=== PATIENT | female | born 1955 | race Caucasian/White ===

== ENCOUNTER → 2016-08-26 | Outpatient (CLI) | payer MEDICARE, OTHER ==
--- NOTE | 2016-08-26 13:24 | CT ---
EXAMINATION TYPE: CT abdomen pelvis wo con DATE OF EXAM: 08/26/2016 12:49 PM COMPARISON: 05/10/2015 INDICATION: Bilateral flank pain for 3 months. Worse on the left DLP: 1567 mGycm, Automated exposure control for dose reduction was used. CONTRAST: 0 mL of Omnipaque 300. Study performed without Oral Contrast TECHNIQUE: Axial images were obtained from above the diaphragm to the pubic rami in the axial plane a t 5 mm thick sections. Reconstructed images are reviewed on the computer in the coronal plane. FINDINGS: Limited CT sections are obtained the lung bases. Punctate nodule along the right heart border above the diaphragm, series 3 image 16 lung windows may be present. This measures 0.4 cm in size and was pr esent previously. CT ABDOMEN: Liver: Normal Spleen: Normal Pancreas: Normal Adrenal glands: The adrenal glands are normal. Gallbladder: Not identified Kidneys: No masses are evident. No hydronephrosis is present. No cysts are present. Aorta: Vascular calcification is within the aorta. Inferior vena cava: Normal. CT PELVIS: Loops of bowel within the abdomen and pelvis are normal. Appendix: Normal as visualized. Urinary bladder: Decompressed with limited evaluation Genitourinary structures: Uterus is normal. Adnexal regions are clear. Osseous structures: No suspicious lytic or sclerotic lesions. Degenerative disc changes are within th e lower thoracic spine. IMPRESSIONS: 1. No suspicious acute changes.
== END | disposition home or self-care (01) ==
LOC: RADCTMAIN 12:31
PROVIDERS: ATTEND Urology
DX: R10.9 Unspecified abdominal pain (principal); Z88.5 Allergy status to narcotic agent; Z88.0 Allergy status to penicillin; Z88.8 Allergy status to other drugs, medicaments and biological substances
CPT/HCPCS: 74176

== ENCOUNTER → 2016-10-23 | Outpatient (CLI) | payer MEDICARE, OTHER ==
--- NOTE | 2016-10-23 13:50 | MR ---
EXAMINATION TYPE: MR cspine/lspine wo con DATE OF EXAM: 10/23/2016 COMPARISON: MRI cervical spine November 29, 2009. MRI lumbar spine January 18, 2011. MRI lumbar spine Ma y 2013. HISTORY: Cervicalgia and lumbago per order. Low back pain for 2 years into bilateral thighs per patie nt. Neck pain causing pain or weakness in arms and fingers per patient. TECHNIQUE: Multiplanar, multisequence imaging of the cervical and lumbar spine are performed without IV contrast. FINDINGS: C-SPINE: FINDINGS: Sagittal images of the cervical spine show the craniocervical junction to appear within nor mal limits. The cervical and upper thoracic spinal cord is normal in course and signal. Vertebral a lignment is straightened. There is persistent slight grade 1 retrolisthesis of C5 on C6. The vertebr al body heights are normal. There is persistent mild to moderate disc space narrowing and spurring at C5-C6 and C6-C7 levels. There are persistent posterior disc herniations at these levels on sagittal images effacing anterior thecal sac. Heterogeneous endplate changes anterior C6-C7 level are noted co nsistent with Modic type II degenerative change. Axial images show the C2-C3 level to remain within normal limits. Axial images at C3-C4 level show focal central disc protrusion mildly effacing anterior thecal sac, b ilateral neural foramina are patent. No significant change from prior study is seen. Axial images at C4-C5 level show more prominent focal central disc protrusion on axial image 29 exten ding nearly up to ventral surface of spinal cord, bilateral neural foramina remain patent. Axial images at C5-C6 level show broad-based right paracentral/foraminal disc protrusion effacing ant erolateral thecal sac and causing advanced right and moderate left-sided neural foraminal narrowing. Most prominent spinal canal stenosis is seen at this level on axial image 21. No significant change f rom prior study is seen. Axial images at C6-C7 level show broad-based right paracentral/foraminal disc protrusion effacing ant erolateral thecal sac and causing mild to moderate bilateral neural foraminal narrowing. Axial images at C7-T1 level are felt within normal limits. IMPRESSION: Straightening of cervical spine with multilevel degenerative changes, most prominent find ings remain present at C5-C6 and C6-C7 level as detailed above without significant progression from p rior MRI. Progressive but less prominent degenerative findings are noted at C4-C5 level versus 2010 M RI. L-SPINE: Sagittal images of the lumbar spine show vertebral body heights and alignment to appear satisfactory. Multilevel disc desiccation is seen but disc space heights are fairly well-maintained with exception mild disc space narrowing L5-S1 level. Increased signal posterior leak consistent with annular tear at this level is redemonstrated on sagittal images. No significant new posterior disc herniations are seen on sagittal images. The conus medullaris remains stable and slightly low in position ending at superior L2 level. No suspicious clumping of lumbosacral nerve roots is seen. No abnormal signal is noted. The bone marrow signal intensity is within normal limits. No significant spurring is seen. Sma ll hemangioma in L2 level is redemonstrated anteriorly and superiorly. Axial images show the T12-L1 and L1-L2 levels to appear within normal limits. Axial images at L2-L3 and L3-L4 level show mild/moderate facet degenerative changes bilaterally but s kane canal is preserved and bilateral neural foramina are patent. No significant change from prior s tudy seen. Axial images at L4-L5 level redemonstrate mild to moderate facet degenerative changes and ligament fl avum hypertrophy, right greater than left. There is redemonstration of some effacement the posterior lateral thecal sac. Mild broad disc bulge is redemonstrated. Bilateral neural foramina remain patent. Axial images at L5-S1 level show mild facet degenerative changes bilaterally. There is small right pa racentral disc protrusion redemonstrated minimally effacing anterior thecal sac, bilateral neural for jamar are patent. Gallbladder is not clearly identified on current study. There is 1.2 cm simple appearing cyst lower p ole level right kidney on axial image 12. IMPRESSION: Multilevel degenerative changes in mid to lower lumbar spine as detailed above, no signif icant change from most recent prior MRI.
== END | disposition home or self-care (01) ==
LOC: RADMRIMAIN 12:28
PROVIDERS: ATTEND Psychiatry & Neurology Neurology
DX: M47.816 Spondylosis without myelopathy or radiculopathy, lumbar region (principal); M47.814 Spondylosis without myelopathy or radiculopathy, thoracic region; Z88.0 Allergy status to penicillin; Z88.5 Allergy status to narcotic agent; Z88.8 Allergy status to other drugs, medicaments and biological substances
CPT/HCPCS: 72141; 72148

== ENCOUNTER → 2017-10-31 | Outpatient (CLI) | payer MEDICARE, OTHER ==
--- NOTE | 2017-11-04 11:07 | P.ARTDOP ---
Arterial Doppler LOWER EXTREMITY ARTERIAL DOPPLER: DATE OF SERVICE: 10/31/2017 Reason for study: Bilateral claudication calf and thigh. Doppler waveforms: Atypical bilaterally except at the left side digit which is monophasic.. Pulse volume recording: []. Pressure gradients: Above the thigh on both sides and across the knee mostly on the left with mild gradient below the knee on the right.. Ankle-brachial indices: 0.67 on the right and 0.62 on the left.. Toe pressures: 109 on the right, 54 on the left Impression: Moderate bilateral femoral popliteal occlusive disease. Possible iliac component. Clinical correlation recommended.
== END | disposition home or self-care (01) ==
LOC: RADUSWWP 10:06
PROVIDERS: ATTEND Internal Medicine
DX: M79.662 Pain in left lower leg (principal); M79.661 Pain in right lower leg
CPT/HCPCS: 93923

== ENCOUNTER 2018-02-13 08:41 | Inpatient (IN) | payer MEDICARE, OTHER ==
[2018-02-13] MEDS ORDERED: ACETAMINOPHEN TAB 500 MG TAB PO STA (08:58)
[2018-02-13] MEDS ORDERED: SODIUM CHLORIDE 0.9% 2,000 ML IV ONE (08:59)
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
[2018-02-13 09:23] LABS: Basophils % (A) 0 %; Eosinophils # (A) 0.1 k/uL (0-0.7); Eosinophils % (A) 2 %; HCT 44.8 % (34.0-46.0); HGB 14.5 gm/dL (11.4-16.0); Lymphocytes # (A) 0.4 k/uL (1.0-4.8); Lymphocytes % (A) 10 %; MCH 27.6 pg (25.0-35.0); MCHC 32.3 g/dL (31.0-37.0); MCV 85.6 fL (80.0-100.0); Monocytes % (A) 1 %; Neutrophils # (A) 3.8 k/uL (1.3-7.7); Neutrophils % (A) 86 %; Platelet Count 157 k/uL (150-450); RBC 5.24 m/uL (3.80-5.40); RDW 14.3 % (11.5-15.5); WBC 4.4 k/uL (3.8-10.6)
[2018-02-13 09:30] LABS: Partial Thromboplastin Time 22.1 sec (22.0-30.0); Prothrombin Time 10.1 sec (9.0-12.0)
[2018-02-13 09:31] LABS: Albumin 3.9 g/dL (3.5-5.0); Calcium 8.9 mg/dL (8.4-10.2); Magnesium 1.6 mg/dL (1.6-2.3); Potassium 4.9 mmol/L (3.5-5.1); Total Bilirubin 0.3 mg/dL (0.2-1.3); Total Protein 6.2 g/dL (6.3-8.2)
--- NOTE | 2018-02-13 09:43 | XR ---
EXAMINATION TYPE: XR chest 2V DATE OF EXAM: 02/13/2018 COMPARISON: NONE TECHNIQUE: PA and lateral views submitted. HISTORY: Fever and difficulty breathing FINDINGS: The lungs are clear and there is no pneumothorax, pleural effusion, or focal pneumonia. The heart i s enlarged. There is a catheter or lead overlying the spinal column. Degenerative change of the spine . There is an interstitial process seen. Technique limits assessment of the lung bases. IMPRESSION: 1. Cardia megaly with interstitial process correlate for interstitial pneumonitis or less likely veno us congestion. Atypical pneumonia in the differential. 2. Technique limits assessment of the lung bases. Correlate for basilar atelectasis or infiltrate.
[2018-02-13 10:30] LABS: Creatine Kinase 48 U/L (30-135)
[2018-02-13] MEDS ORDERED: LEVOFLOXACIN 750MG-D5W PMX 750 MG in DEXTROSE/WATER 1 150ML.BAG IVPB STA (10:30)
[2018-02-13 10:42] LABS: Creatine Kinase MB 0.8 ng/mL (0.0-2.4); Troponin I <0.012 ng/mL (0.000-0.034)
[2018-02-13] MEDS ORDERED: PNEUMONIA PROTOCOL UTILIZED 1 EACH MISC PO PRN (11:01)
[2018-02-13 11:47] LABS: Appearance,Urine Cloudy (Clear); Bacteria,Urine Many /hpf; Bilirubin,Urine Negative (Negative); Blood,Urine Moderate (Negative); Color,Urine Yellow; Glucose,Urine (UA) Negative (Negative); Ketones,Urine Negative (Negative); Leukocyte Esterase,Urine Moderate (Negative); Mucus,Urine Rare /hpf; Nitrite,Urine Positive (Negative); PH, Urine 5.5 (5.0-8.0); Protein,Urine Trace (Negative); RBC,Urine 44 /hpf (0-5); Specific Gravity,Urine 1.009 (1.001-1.035); Urobilinogen,Urine <2.0 mg/dL (<2.0); WBC,Urine 25 /hpf (0-5)
[2018-02-13] MEDS ORDERED: IPRATROPIUM-ALBUTEROL 3 ML NEB INHALATION PRN (12:47)
[2018-02-13] MEDS ORDERED: NITROGLYCERIN SL TABS 0.4 MG TAB SUBLINGUAL PRN (12:47)
[2018-02-13] MEDS ORDERED: METHOCARBAMOL 750 MG TAB PO PRN (12:47)
[2018-02-13] MEDS ORDERED: TEMAZEPAM 15 MG CAP PO PRN (12:50)
[2018-02-13] MEDS ORDERED: AZITHROMYCIN 500 MG in SODIUM CHLORIDE 0.9% 250 ML IVPB SCH (13:00)
[2018-02-13] MEDS ORDERED: INFLUENZA VACCINE (6 MOS+) 60 MCG/0.5 ML SYRINGE IM ONE (13:03)
[2018-02-13] MEDS: FUROSEMIDE 10 MG/ML 4 ML VIAL IV SCH (13:40)
[2018-02-13] MEDS: methylPREDNISolone SOD SUCCI 125 MG/2 ML VIAL IV SCH ×3 (13:40→23:10)
[2018-02-13] MEDS: NICOTINE 14MG/24HR PATCH TRANSDERM SCH (13:41)
[2018-02-13] MEDS: HEPARIN SODIUM,PORCINE 5,000 UNIT/ML 1 ML VIAL SQ SCH ×2 (13:41→21:30)
[2018-02-13] MEDS: TRIAMCINOLONE 0.1% CREAM 80 GM TUBE TOPICAL SCH (13:42)
[2018-02-13] MEDS ORDERED: SODIUM CHLORIDE 0.9% 500 ML IV ONE (14:27)
[2018-02-13] MEDS: ACETAMINOPHEN TAB 500 MG TAB PO PRN (14:43)
[2018-02-13] MEDS: LABETALOL 200 MG TAB PO SCH (15:19)
[2018-02-13] MEDS: GABAPENTIN 300 MG CAP PO SCH ×2 (15:19→21:30)
[2018-02-13 16:29] LABS: Glucose,Whole Blood 236 mg/dL (75-99)
[2018-02-13] MEDS: IPRATROPIUM-ALBUTEROL 3 ML NEB INHALATION SCH ×2 (17:10→21:03)
[2018-02-13] MEDS: SODIUM CHLORIDE 0.9% 1,000 ML IV SCH (17:26)
[2018-02-13] MEDS: INSULIN DETEMIR 100 UNIT/ML 10 ML VIAL SQ SCH (17:49)
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
--- NOTE | 2018-02-13 19:09 | CT ---
EXAMINATION TYPE: CT abdomen pelvis wo con DATE OF EXAM: 02/13/2018 COMPARISON: 08/26/2016 HISTORY: Flank pain CT DLP: 1506.5 mGycm Automated exposure control for dose reduction was used. TECHNIQUE: Helical acquisition of images was performed from the lung bases through the pelvis. FINDINGS: There is coarse interstitial infiltrate in the lower lung valdez. Heart is enlarged. There is no [place] cardial effusion. Liver shows no focal defect. Spleen appears normal. There is no pancreatic mass. There is no adrenal mass. Kidneys have normal size. There is mild right-sided hydronephrosis. I see n o definite ureteral calculus. There is right side perinephric edema. There are small calculi in the l ower pole right kidney to measure up to 4 mm. There is right-sided periureteral edema. I see no intestinal wall thickening. There are no dilated loops. Appendix appears normal. Bladder dis tends smoothly. I see no bony destructive process. There is no lumbar compression fracture. There is no inguinal hernia or adenopathy. There is no mesenteric edema or adenopathy. There is no ev idence of pneumoperitoneum. IMPRESSION: THERE ARE NEW INFILTRATES AT THE LUNG BASES COMPARED TO OLD EXAM. CARDIOMEGALY. THERE IS NEW RIGHT-SIDED HYDRONEPHROSIS WITH PERINEPHRIC EDEMA AND PERIURETERAL EDEMA. A DEFINITE URE TERAL STONE IS NOT IDENTIFIED. THIS COULD RELATE TO RECENTLY PASSED STONE OR OTHER OBSTRUCTING LESION . NORMAL APPENDIX.
[2018-02-13 20:35] LABS: Glucose,Whole Blood 374 mg/dL (75-99)
[2018-02-13] MEDS ORDERED: amLODIPine 10 MG TAB PO SCH (21:00)
[2018-02-13] MEDS: FORMOTEROL FUMARATE 20 MCG/2 ML NEBU INHALATION SCH (21:03)
[2018-02-13] MEDS: BUDESONIDE 1 MG/2 ML NEBU INHALATION SCH (21:03)
[2018-02-13] MEDS ORDERED: SODIUM CHLORIDE 0.9% 1,000 ML IV ONE (21:14)
[2018-02-13] MEDS ORDERED: INSULIN ASPART 100 UNIT/ML 1 ML 10 ML VIAL SQ ONE (21:22)
--- NOTE | 2018-02-13 21:59 | HP ---
HISTORY AND PHYSICAL DATE OF SERVICE: 02/13/2018 CHIEF COMPLAINT: Shortness of breath and fever. HISTORY OF PRESENT ILLNESS: This 62-year-old woman with a past medical history of multiple medical problems, including CVA, TIA, diabetes mellitus, GERD, hypertension, hyperlipidemia, history of myocardial infarction, history of DJD, history of morbid obesity, history of CAD and stent, being followed by Dr. Jarrett in the outpatient setting, was not feeling well over the past several days. Patient had fever. Patient had shortness of breath. The patient was also complaining of right loin pain which was radiating to the front, and the patient came to [facility] and was admitted for further evaluation and treatment. There is no history of any headache, loss of consciousness, seizures at this time. Plasma lactic acid is elevated and the possibility of sepsis is suspected. Blood sugar is also elevated. PAST MEDICAL HISTORY: 1. History of CVA, TIA. 2. Diabetes mellitus. 3. History of GERD. 4. Hypertension. 5. Hyperlipidemia. 6. History of myocardial infarction. 7. Morbid obesity. 8. CAD with stent. HOME MEDICATIONS: 1. Toujeo 20 units subcutaneously before supper. 2. Kenalog 1 application b.i.d. 3. Zoloft 100 mg p.o. daily. 4. K-Dur 10 mEq p.o. daily. 5. Lasix 20 mg p.o. daily. 6. Cetirizine 10 mg p.o. daily. 7. Amaryl 1 mg p.o. before breakfast. 8. Plavix 75 mg p.o. daily. 9. Norvasc 10 mg at bedtime. 10.Nitrostat 0.4 sublingually p.r.n. 11.Robaxin 750 p.o. b.i.d. p.r.n. 12.Trandate 400 mg p.o. daily. 13.Imdur ER 30 mg p.o. each morning. 14.[place] 1 tablet t.i.d. p.r.n. 15.Neurontin 600 mg p.o. t.i.d. ALLERGIES: 1. PENICILLIN. 2. PENTOBARBITAL. 3. CHLORPROMAZINE. 4. CODEINE. 5. DIAZEPAM. 6. PROCHLORPERAZINE. FAMILY HISTORY: History of bladder cancer. SOCIAL HISTORY: History of smoking on a daily basis. No history of alcohol intake. REVIEW OF SYSTEMS: ENT: No diminished hearing. No diminished vision. CARDIOVASCULAR SYSTEM: As mentioned earlier. RESPIRATORY SYSTEM: As mentioned earlier. GI: No nausea, vomiting. : No dysuria or retention. NERVOUS SYSTEM: No numbness, weakness. ALLERGY/IMMUNOLOGY: No asthma, hayfever. MUSCULOSKELETAL: As mentioned earlier. HEMATOLOGY/ONCOLOGY: No history of anemia. ENDOCRINE: No history of diabetes, hypothyroidism. CONSTITUTIONAL: As mentioned earlier. DERMATOLOGY: Negative. RHEUMATOLOGY: Negative. PSYCHIATRY: As mentioned earlier. PHYSICAL EXAMINATION: Patient is alert and oriented x3. Pulse is 80, blood pressure 97/70, respiration 20, temperature 101.2, pulse ox 93% on 2 L. HEENT: Conjunctivae normal. Oral mucosa moist. NECK: No jugular venous distention. No carotid bruit. No lymph node enlargement. CARDIOVASCULAR SYSTEM: S1, S2 muffled. No S3. No S4. RESPIRATORY SYSTEM: Breath sounds diminished at the bases. Bilateral scattered rhonchi and expiratory wheezing and crackles. ABDOMEN: Soft, obese, non-tender. No mass palpable. LEGS: No edema. No swelling. NERVOUS SYSTEM: Higher functions as mentioned earlier. Moves all 4 limbs. No focal motor or sensory deficit. LYMPHATICS: No lymph node palpable in neck, axillae or groin. SKIN: No ulcer, rash, bleeding. LABS: WBC 4.4, hemoglobin 14.5, sodium 143, potassium 4.9, CO2 17, creatinine 1.21, glucose 374. UA noted. ASSESSMENT: 1. Chronic obstructive pulmonary disease, acute exacerbation, with possible acute purulent tracheobronchitis, possible bilateral pneumonia with sepsis. 2. Possible urinary tract infection with sepsis. 3. Lactic acidosis. 4. Mild hypotension on arrival. 5. History of cerebrovascular accident, transient ischemic attack. 6. Diabetes mellitus, type 2. 7. Gastroesophageal reflux disease. 8. Hypertension. 9. Hyperlipidemia. 10.History of myocardial infarction. 11.History of pneumonia. 12.History of morbid obesity. 13.History of coronary artery disease, stent. 14.History of transient ischemic attack. 15.History of central nervous system aneurysm and coiling. 16.History of chronic degenerative joint disease. 17.Anxiety, depression. 18.Remote history of nicotine dependence. 19.Morbid obesity with body mass index of 47.2. RECOMMENDATIONS AND DISCUSSION: In this 62-year-old woman who presented with multiple complex medical issues, we will monitor the patient closely, continue the current medications, continue with symptomatic treatment. Initiate broad-spectrum IV antibiotics, bronchodilators, IV steroids. Closely follow with Dr. Guajardo. Cardiology also will be consulted because of the hypotension and patient's cardiac history. Prognosis guarded because of multiple complex medical issues. Troponins are negative at this time. We will obtain cultures. Influenza is negative. Guarded prognosis. Further recommendations to follow. A copy of this dictation is being forwarded to Dr. Jarrett, who is the primary physician. MMODL / IJN: [id number] /
[2018-02-13] MEDS ORDERED: VANCOMYCIN IV PER PHARMACY 1 EACH MISC MISCELLANE SCH (23:00)
[2018-02-13 23:07] LABS: Glucose,Whole Blood 313 mg/dL (75-99)
[2018-02-14] MEDS: MEROPENEM 2 GM in SODIUM CHLORIDE 0.9% 100 ML IVPB SCH ×2 (00:09→11:57)
[2018-02-14] MEDS ORDERED: VANCOMYCIN 1,750 MG in SODIUM CHLORIDE 0.9% 500 ML IVPB SCH (01:00)
[2018-02-14] MEDS: SODIUM CHLORIDE 0.9% 1,000 ML IV SCH ×3 (01:15→11:51)
[2018-02-14] MEDS: methylPREDNISolone SOD SUCCI 125 MG/2 ML VIAL IV SCH ×2 (06:07→11:57)
--- NOTE | 2018-02-14 06:21 | XR ---
EXAMINATION TYPE: XR chest 2V DATE OF EXAM: 02/14/2018 HISTORY: pneumonia. REFERENCE: Previous study dated 02/13/2018. FINDINGS: A pain stimulator overlies the dorsal spine. The heart is enlarged. There is mild interstitial change. There is mild vascular congestion. There is a small left effusion. IMPRESSION: SUBTLE CHANGES OF CONGESTIVE HEART FAILURE.
[2018-02-14 06:27] LABS: Glucose,Whole Blood 168 mg/dL (75-99)
[2018-02-14] MEDS: INSULIN ASPART 100 UNIT/ML 1 ML 10 ML VIAL SQ SCH ×4 (06:28→21:03)
[2018-02-14] MEDS: GLIMEPIRIDE 1 MG TAB PO SCH (06:29)
[2018-02-14 06:48] LABS: Albumin 3.1 g/dL (3.5-5.0); Calcium 8.6 mg/dL (8.4-10.2); HCT 37.6 % (34.0-46.0); HGB 12.3 gm/dL (11.4-16.0); MCHC 32.8 g/dL (31.0-37.0); MCV 85.3 fL (80.0-100.0); Mean Platelet Volume 8.4; Platelet Count 121 k/uL (150-450); Potassium 4.9 mmol/L (3.5-5.1); RDW 14.5 % (11.5-15.5); Total Bilirubin 0.2 mg/dL (0.2-1.3); Total Protein 5.6 g/dL (6.3-8.2); WBC 25.5 k/uL (3.8-10.6)
[2018-02-14 07:57] LABS: Band Neutrophils % 13 %; Lymphocytes # (M) 2.04 k/uL (1.0-4.8); Monocytes # (M) 1.28 k/uL (0-1.0); Neutrophils % (M) 74 %; Nucleated Red Blood Cells 0 /100 WBC (0-0); Polychromasia Present; Total Cells Counted 100
[2018-02-14] MEDS: BUDESONIDE 1 MG/2 ML NEBU INHALATION SCH ×2 (08:32→20:32)
[2018-02-14] MEDS: FORMOTEROL FUMARATE 20 MCG/2 ML NEBU INHALATION SCH ×2 (08:32→20:32)
[2018-02-14] MEDS: IPRATROPIUM-ALBUTEROL 3 ML NEB INHALATION SCH ×4 (08:32→20:34)
[2018-02-14] MEDS ORDERED: ISOSORBIDE MONONITRATE ER 30 MG TAB.ER.24H PO SCH (09:00)
[2018-02-14] MEDS: LABETALOL 200 MG TAB PO SCH (09:17)
[2018-02-14] MEDS: HEPARIN SODIUM,PORCINE 5,000 UNIT/ML 1 ML VIAL SQ SCH ×2 (09:24→21:04)
[2018-02-14] MEDS: CLOPIDOGREL 75 MG TAB PO SCH (09:24)
[2018-02-14] MEDS: GABAPENTIN 300 MG CAP PO SCH ×3 (09:24→21:04)
[2018-02-14] MEDS: NICOTINE 14MG/24HR PATCH TRANSDERM SCH (09:25)
[2018-02-14] MEDS: SERTRALINE 100 MG TAB PO SCH (09:29)
[2018-02-14] MEDS: LORATADINE 10 MG TAB PO SCH (09:29)
[2018-02-14] MEDS: TRIAMCINOLONE 0.1% CREAM 80 GM TUBE TOPICAL SCH ×2 (09:31→21:05)
[2018-02-14] MEDS ORDERED: LEVOFLOXACIN 750MG-D5W PMX 750 MG in DEXTROSE/WATER 1 150ML.BAG IVPB SCH (11:00)
[2018-02-14] MEDS: POTASSIUM CHLORIDE ER 10 MEQ TAB.ER.PRT PO SCH (11:54)
[2018-02-14] MEDS: FUROSEMIDE 10 MG/ML 4 ML VIAL IV SCH (12:11)
[2018-02-14 12:18] LABS: Glucose,Whole Blood 201 mg/dL (75-99)
--- NOTE | 2018-02-14 14:13 | P.PN ---
Subjective Progress Note Date: 02/14/18 Principal diagnosis: Shortness of breath I'm dictating for Dr. Rodriguez. Interval history: Starr James is a 62-year-old female patient who presented to the hospital because of fever, generalized weakness, chills, pain in the right flank area and not feeling well. She was admitted to inpatient unit for further evaluation. No dysuria frequency or urgency. No change in the color or the characteristics of the urine. She has had previous episodes of UTI. She has had previous bouts of pneumonia. In hospital she start also getting some shortness of breath. Her urinalysis was suggestive of UTI. Influenza screen was negative. Lactic acid level was at 2.6. ProBNP level was 1760. The white cell count is not elevated at 4.4. The patient's renal function showed a creatinine of 1.2 with a BUN of 29. Sodium level is at 143 and the patient's serum bicarb is at 17. Chest x-ray shows cardiomegaly along with some mild interstitial process. No acute infiltration or airspace disease noted. The patient has received 2-1/2 L of IV fluids. She was given Rocephin and Zithromax. No nausea. No emesis. No abdominal pain. No altered mentation. No headaches. No skin rashes. Review of systems: Constitutional: Reports fatigue, Reports fever, Reports weakness, Reports weight gain Eyes: denies blurred vision, denies bulging eye, denies decreased vision Ears, nose, mouth and throat: Denies headache, Denies sore throat Cardiovascular: Reports dyspnea on exertion Respiratory: Reports dyspnea Gastrointestinal: Denies abdominal pain, Denies diarrhea, Denies nausea, Denies vomiting Genitourinary: Reports dysuria Musculoskeletal: absent: ankle pain, ankle stiffness, ankle swelling Neurological: Reports weakness Endocrine: Reports fatigue The rest of the 14 point review of systems is negative Objective - Vital Signs Vital signs: Vital Signs Temp 98.1 F 02/14/18 11:50 Pulse 72 02/14/18 12:13 Resp 20 02/14/18 11:50 BP 105/60 02/14/18 11:50 Pulse Ox 95 02/14/18 11:50 Intake & Output 02/13/18 02/14/18 02/14/18 18:59 06:59 18:59 Intake Total 1590 750 Output Total 600 Balance 1590 150 Weight 113.398 kg 118.7 kg Intake: IV 750 Meropenem 2 gm In Sodium 100 Chloride 0.9% 100 ml @ 200 mls/hr IVPB Q12H [facility] Rx#:[id number] Sodium Chloride 0.9% 1, 650 000 ml @ 75 mls/hr IV . [id number] [facility] Rx#:[id number] Intake, IV Titration 1350 Amount Meropenem 2 gm In Sodium 100 Chloride 0.9% 100 ml @ 200 mls/hr IVPB Q12H [facility] Rx#:[id number] Sodium Chloride 0.9% 1, 750 000 ml @ 75 mls/hr IV . [id number] [facility] Rx#:[id number] Vancomycin 1,750 mg In 500 Sodium Chloride 0.9% 500 ml @ 167 mls/hr IVPB Q24H [facility] Rx#:[id number] Oral 240 Output: Urine 600 Other: Voiding Method Bedside Commode Bedside Commode # Voids 1 3 # Bowel Movements 0 - Exam General : Obese, comfortable likely distress Head exam was generally normal. T Neck was supple and without jugular venous distension, no JVD Lung sounds are diminished otherwise clear. Or crackles in the in lung bases. Cardiac S1-S2 present regular rate and rhythm Abdominal exam revealed normal bowel sounds. The abdomen was soft, non-tender, bowel sounds are normal Extremities revealed easily palpable radial, femoral and pedal pulses. There was no cyanosis, clubbing or edema. Examination of the skin revealed no evidence of significant rashes, suspicious appearing nevi or other concerning lesions. Neurologically the patient is awake and alert and is no focal neurological deficit Psychiatric-anxious Active Medications Acetaminophen (Tylenol Tab) 500 mg PO Q6HR PRN PRN Reason: Fever and/ or Pain Last Admin: 02/13/18 14:43 Dose: 500 mg Albuterol/Ipratropium (Duoneb 0.5 Mg-3 Mg/3 Ml Soln) 3 ml INHALATION RT-QID [facility] Last Admin: 02/14/18 12:02 Dose: 3 ml Albuterol/Ipratropium (Duoneb 0.5 Mg-3 Mg/3 Ml Soln) 3 ml INHALATION RT-QID PRN PRN Reason: Shortness Of Breath Or Wheezing Alprazolam (Xanax) 0.25 mg PO TID PRN PRN Reason: Anxiety Budesonide (Pulmicort) 1 mg INHALATION RT-BID [facility] Last Admin: 02/14/18 08:32 Dose: 1 mg Clopidogrel Bisulfate (Plavix) 75 mg PO DAILY [facility] Last Admin: 02/14/18 09:24 Dose: 75 mg Formoterol Fumarate (Perforomist) 20 mcg INHALATION RT-BID [facility] Last Admin: 02/14/18 08:32 Dose: 20 mcg Furosemide (Lasix) 40 mg IV DAILY [facility] Last Admin: 02/14/18 12:11 Dose: 40 mg Gabapentin (Neurontin) 600 mg PO TID [facility] Last Admin: 02/14/18 09:24 Dose: 600 mg Glimepiride (Amaryl) 1 mg PO AC-BRKFST [facility] Last Admin: 02/14/18 06:29 Dose: 1 mg Heparin Sodium (Porcine) (Heparin) 5,000 unit SQ Q12HR [facility] Last Admin: 02/14/18 09:24 Dose: 5,000 unit Sodium Chloride (Saline 0.9%) 1,000 mls @ 75 mls/hr IV .[id number] [facility] Last Admin: 02/14/18 11:51 Dose: 75 mls/hr Meropenem 2 gm/ Sodium (Chloride) 100 mls @ 200 mls/hr IVPB Q12H [facility] Last Admin: 02/14/18 11:57 Dose: 200 mls/hr Insulin Aspart (Novolog) 0 unit SQ ACHS [facility]; Protocol Last Admin: 02/14/18 12:28 Dose: 6 unit Insulin Detemir (Levemir) 20 unit SQ PC-SUPPER [facility] Last Admin: 02/13/18 17:49 Dose: 20 unit Loratadine (Claritin) 10 mg PO DAILY [facility] Last Admin: 02/14/18 09:29 Dose: 10 mg Methocarbamol (Robaxin) 750 mg PO BID PRN PRN Reason: Pain Methylprednisolone Sodium Succinate (Solu-Medrol) 60 mg IV Q6HR [facility] Last Admin: 02/14/18 11:57 Dose: 60 mg Miscellaneous Information (Pneumonia Protocol Utilized) 1 each PO ONCE PRN PRN Reason: Per Protocol Nicotine (Habitrol 14mg/24hr Patch) 1 patch TRANSDERM DAILY [facility] Last Admin: 02/14/18 09:25 Dose: 1 patch Nitroglycerin (Nitrostat) 0.4 mg SUBLINGUAL Q5M PRN PRN Reason: Chest Pain Non-Formulary Medication (Dosing Per Pharmacy) 1 each MISCELLANE DIRECTED [facility] Last Admin: 02/14/18 00:16 Dose: Not Given Potassium Chloride (K-Dur 10) 10 meq PO DAILY [facility] Last Admin: 02/14/18 11:54 Dose: 10 meq Sertraline HCl (Zoloft) 100 mg PO DAILY [facility] Last Admin: 02/14/18 09:29 Dose: 100 mg Temazepam (Restoril) 15 mg PO HS PRN PRN Reason: Insomnia Triamcinolone Acetonide (Kenalog) 1 applic TOPICAL BID [facility] Last Admin: 02/14/18 09:31 Dose: Not Given - Labs CBC & Chem 7: 02/14/18 05:50 02/14/18 05:50 Labs: Abnormal Lab Results - Last 24 Hours (Table) 02/13/18 02/13/18 02/13/18 Range/Units 16:26 20:13 20:32 WBC (3.8-10.6) k/uL Plt Count (150-450) k/uL Neutrophils # (Manual) (1.3-7.7) k/uL Monocytes # (Manual) (0-1.0) k/uL Chloride (98-107) mmol/L Carbon Dioxide (22-30) mmol/L BUN (7-17) mg/dL Creatinine (0.52-1.04) mg/dL Glucose (74-99) mg/dL POC Glucose (mg/dL) 236 H 374 H (75-99) mg/dL Plasma Lactic Acid Jose 3.2 H* (0.7-2.0) mmol/L AST (14-36) U/L ALT (9-52) U/L Total Protein (6.3-8.2) g/dL Albumin (3.5-5.0) g/dL 02/13/18 02/14/18 02/14/18 Range/Units 22:56 05:50 05:50 WBC 25.5 H (3.8-10.6) k/uL Plt Count 121 L (150-450) k/uL Neutrophils # (Manual) 22.10 H (1.3-7.7) k/uL Monocytes # (Manual) 1.28 H (0-1.0) k/uL Chloride 116 H (98-107) mmol/L Carbon Dioxide 20 L (22-30) mmol/L BUN 29 H (7-17) mg/dL Creatinine 1.35 H (0.52-1.04) mg/dL Glucose 159 H (74-99) mg/dL POC Glucose (mg/dL) 313 H (75-99) mg/dL Plasma Lactic Acid Jose (0.7-2.0) mmol/L AST 46 H (14-36) U/L ALT 83 H (9-52) U/L Total Protein 5.6 L (6.3-8.2) g/dL Albumin 3.1 L (3.5-5.0) g/dL 02/14/18 02/14/18 Range/Units 06:25 12:14 WBC (3.8-10.6) k/uL Plt Count (150-450) k/uL Neutrophils # (Manual) (1.3-7.7) k/uL Monocytes # (Manual) (0-1.0) k/uL Chloride (98-107) mmol/L Carbon Dioxide (22-30) mmol/L BUN (7-17) mg/dL Creatinine (0.52-1.04) mg/dL Glucose (74-99) mg/dL POC Glucose (mg/dL) 168 H 201 H (75-99) mg/dL Plasma Lactic Acid Jose (0.7-2.0) mmol/L AST (14-36) U/L ALT (9-52) U/L Total Protein (6.3-8.2) g/dL Albumin (3.5-5.0) g/dL Microbiology - Last 24 Hours (Table) 02/13/18 11:08 Urine Culture - Preliminary Urine,Catheterized Gram Neg Bacilli 02/13/18 08:54 Blood Culture Gram Stain - Preliminary Blood Blood Culture - Preliminary Gram Neg Bacilli 02/13/18 08:54 Blood Culture - Final Blood Assessment and Plan Assessment: 1 acute febrile illness expected to be related to an underlying UTI. 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 Rocephin and Zithromax. IV fluids with normal saline , decrease the weight 75 mL an hour. Continue bronchodilators. Continue steroids. CAT scan of the abdomen looking for hydronephrosis or any other intra-abdominal source of nephrolithiasis or sepsis. DVT and GI prophylaxis. Patient had hypotension and was given fluid boluses. Chest x-ray was showing congestive heart failure. Fluid rate will be decreased. Patient is also getting evaluated by cardiology service. Norvasc as well as labetalol was discontinued. Continue rest of the medications. Continue GI and DVT prophylaxis. Prognosis guarded due to multiple medical problems. Monitor patient closely, further plans based on her clinical course.
--- NOTE | 2018-02-14 14:45 | ECHOF ---
Referral Reason:hypotension MEASUREMENTS -------- HEIGHT: 152.4 cm WEIGHT: 118.4 kg BP: IVSd: 1.6 cm (0.6 - 1.1) LVIDd: 4.0 cm (3.9 - 5.3) LVPWd: 1.9 cm (0.6 - 1.1) IVSs: 1.8 cm LVIDs: 3.0 cm LVPWs: 2.0 cm LA Diam: 3.6 cm (2.7 - 3.8) Ao Diam: 3.0 cm (2.0 - 3.7) AV Cusp: 1.8 cm (1.5 - 2.6) LA Diam: 3.8 cm (2.7 - 3.8) MV EXCURSION: 15.119 mm (> 18.000) MV EF SLOPE: 105 mm/s (70 - 150) EPSS: 0.2 cm MV E Maik: 0.67 m/s MV DecT: 311 ms MV A Maik: 0.90 m/s MV E/A Ratio: 0.74 FINDINGS -------- Sinus rhythm. This was a technically adequate study. Morbid Obesity The left ventricular size is normal. There is moderate concentric left ventricular hypertrophy. O verall left ventricular systolic function is low-normal with, an EF between 50 - 55 %. The right ventricle is normal in size. The left atrial size is normal. The right atrial size is normal. There is mild aortic valve sclerosis. There is no evidence of aortic regurgitation. Mild mitral annular calcification present. Mild mitral regurgitation is present. Mild tricuspid regurgitation present. There is no evidence of pulmonary hypertension. The right v entricular systolic pressure, as measured by Doppler, is {RVSP}. There is no pulmonic regurgitation present. The aortic root size is normal. There is no pericardial effusion. CONCLUSIONS -------- 1. The left ventricular size is normal. 2. There is moderate concentric left ventricular hypertrophy. 3. Overall left ventricular systolic function is low-normal with, an EF between 50 - 55 %. 4. There is mild aortic valve sclerosis. 5. Mild mitral annular calcification present. 6. Mild mitral regurgitation is present. 7. Mild tricuspid regurgitation present. 8. There is no evidence of pulmonary hypertension. 9. The right ventricular systolic pressure, as measured by Doppler, is {RVSP}. 10. There is no pulmonic regurgitation present. 11. The aortic root size is normal. 12. There is no pericardial effusion. CUSTOMER CONTACT SALES ASSOCIATE: Kaur Sprague RDCS
--- NOTE | 2018-02-14 14:54 | CONS ---
CONSULTATION CHIEF COMPLAINT: Fever, chills. This is a 62-year-old lady with complex and multiple medical problems, including diabetes, hypertension, dyslipidemia, coronary artery disease, status post stent, history of cerebral aneurysm, status post coil, TIA. She presents to hospital complaining of fever, shortness of breath and not feeling well. Cardiology has been consulted because of hypotension. Her blood pressures have been in the 90s and 100s systolic, but she does not have any symptoms of hypotension. Her peripheral pulses are palpable. It is somewhat difficult to check her blood pressure because of morbid obesity. However, the hypotension may be related to sepsis. We will obtain cardiac enzymes to rule out myocardial infarction. EKG does not reveal acute ischemic changes. I will obtain a 2D echo to evaluate her LV function. PAST MEDICAL HISTORY: Significant for: 1. Hypertension. 2. Diabetes. 3. Dyslipidemia. 4. GERD. 5. CVA. 6. Morbid obesity. ALLERGIES: 1. PENICILLIN. 2. CODEINE. 3. DIAZEPAM. MEDICATIONS: Medications at home include: 1. Zoloft. 2. K-Dur. 3. Lasix. 4. Amaryl. 5. Plavix. 6. Norvasc. 7. Robaxin. 8. Trandate. 9. Imdur. 10.Smoot. 11.Neurontin. FAMILY HISTORY: Significant for bladder cancer. SOCIAL HISTORY: Significant for smoking on a daily basis. REVIEW OF SYSTEMS: HEENT is unremarkable. CARDIOVASCULAR: As described above. RESPIRATORY: Negative. GI: Negative. GENITOURINARY: Negative. HYDRODYNAMICS TEACHER: Negative. ALLERGY/IMMUNOLOGY: Negative. SKIN: Negative. MUSCULOSKELETAL: Significant for arthritis. PSYCHOSOCIAL: Negative. ENDOCRINE: Negative. DERMATOLOGICAL: Negative. CONSTITUTIONAL: Significant for fever, chills. PSYCHIATRY: Negative. PHYSICAL EXAMINATION: Patient appears comfortable at rest. Afebrile. Heart rate is 76. Baseline blood pressure is 92/54, respiratory rate 18, oxygen saturation 95% on 3 L. There is no jugular venous distention. Chest exam reveals good air entry bilaterally. Heart exam reveals first and second heart sounds. No gallop. No murmur. No rub. Abdomen is soft, nontender. Examination of extremities did not reveal any edema. Peripheral pulses are felt. LABS: Her hemoglobin is 12.3. White cell count is elevated at 25. Potassium is 4.9, creatinine 1.3. BUN is 29. AST and ALT are elevated. ASSESSMENT: 1. Fever with elevated white cell count, probably related to sepsis. 2. Hypotension; could be due to the sepsis. 3. History of coronary artery disease, status post angioplasty. PLAN: I will obtain a 2D echo to evaluate her LV function, obtain a BNP and troponin. MMODL / IJN: [id number] /
--- NOTE | 2018-02-14 15:52 | P.PN ---
Subjective Progress Note Date: 02/14/18 [id number] female patient who presented to the hospital because of fever, generalized weakness, chills, pain in the right flank area and not feeling well. No dysuria frequency or urgency. No change in the color or the characteristics of the urine. She has had previous episodes of UTI. She has had previous bouts of pneumonia. In hospital she start also getting some shortness of breath. Her urinalysis was suggestive of UTI. Influenza screen was negative. Lactic acid level was at 2.6. ProBNP level was 1760. The white cell count is not elevated at 4.4. The patient's renal function showed a creatinine of 1.2 with a BUN of 29. Sodium level is at 143 and the patient's serum bicarb is at 17. Chest x-ray shows cardiomegaly along with some mild interstitial process. No acute infiltration or airspace disease noted. The patient has received 2-1/2 L of IV fluids. She was given Rocephin and Zithromax. No nausea. No emesis. No abdominal pain. No altered mentation. No headaches. No skin rashes. On 02/15/2008 and I'm seeing this patient for a follow-up. The patient was seen yesterday in a septic state. This was related to an underlying urine checked infection. The patient's urine culture came back positive for gram- negative bacillus and gram-negative bacillus was also cultured in the blood. The patient was switched IV Merrem. Overall doing better. No fevers since the evening. Hemodynamically stable. No nausea or vomiting. No abdominal pain. CAT scan of the abdomen was also completed and the patient was found to have coarse interstitial infiltrates of the lung bases bilaterally. No pericardial effusion. No adrenal mass. Kidneys were normal in size. There was mild right kidney hydronephrosis without any ureteral calculus. There is right-sided perinephric edema and there is a small cavernous in the lower pole of the right kidney measuring 4 mm in size. There is right-sided periurethral edema. The findings are almost insistent with a stone that could've passed and there is no obstructive lesion at this point and there may be an underlying component of pyelonephritis. Objective - Vital Signs Vital signs: Vital Signs Temp 98.3 F 02/14/18 15:45 Pulse 71 02/14/18 15:45 Resp 20 02/14/18 15:45 BP 105/60 02/14/18 15:45 Pulse Ox 95 02/14/18 15:45 Intake & Output 02/13/18 02/14/18 02/14/18 18:59 06:59 18:59 Intake Total 1590 750 Output Total 600 Balance 1590 150 Weight 113.398 kg 118.7 kg Intake: IV 750 Meropenem 2 gm In Sodium 100 Chloride 0.9% 100 ml @ 200 mls/hr IVPB Q12H [facility] Rx#:[id number] Sodium Chloride 0.9% 1, 650 000 ml @ 75 mls/hr IV . [id number] [facility] Rx#:[id number] Intake, IV Titration 1350 Amount Meropenem 2 gm In Sodium 100 Chloride 0.9% 100 ml @ 200 mls/hr IVPB Q12H [facility] Rx#:[id number] Sodium Chloride 0.9% 1, 750 000 ml @ 75 mls/hr IV . [id number] [facility] Rx#:[id number] Vancomycin 1,750 mg In 500 Sodium Chloride 0.9% 500 ml @ 167 mls/hr IVPB Q24H [facility] Rx#:[id number] Oral 240 Output: Urine 600 Other: Voiding Method Bedside Commode Bedside Commode # Voids 1 3 # Bowel Movements 0 - Exam Obese, comfortable and the patient nonacute respiratory distress and she is calm and comfortable answering questions and she is very appropriate Head exam was generally normal. There was no scleral icterus or corneal arcus. Mucous membranes were moist. Neck was supple and without jugular venous distension, thyromegaly, or carotid bruits. Carotids were easily palpable bilaterally. There was no adenopathy. Mallampati class IV and there is no goiter or neck masses Lung sounds are diminished otherwise clear. Or crackles in the in lung bases. Cardiac exam revealed the PMI to be normally situated and sized. The rhythm was regular and no extrasystoles were noted during several minutes of auscultation. The first and second heart sounds were normal and physiologic splitting of the second heart sound was noted. There were no murmurs, rubs, clicks, or gallops. Abdominal exam revealed normal bowel sounds. The abdomen was soft, non-tender, and without masses, organomegaly, or appreciable enlargement of the abdominal aorta. Examination of the extremities revealed easily palpable radial, femoral and pedal pulses. There was no cyanosis, clubbing or edema. Examination of the skin revealed no evidence of significant rashes, suspicious appearing nevi or other concerning lesions. Neurologically the patient is awake and alert and is no focal neurological deficit - Labs CBC & Chem 7: 02/14/18 05:50 02/14/18 05:50 Labs: Abnormal Lab Results - Last 24 Hours (Table) 02/13/18 02/13/18 02/13/18 Range/Units 16:26 20:13 20:32 WBC (3.8-10.6) k/uL Plt Count (150-450) k/uL Neutrophils # (Manual) (1.3-7.7) k/uL Monocytes # (Manual) (0-1.0) k/uL Chloride (98-107) mmol/L Carbon Dioxide (22-30) mmol/L BUN (7-17) mg/dL Creatinine (0.52-1.04) mg/dL Glucose (74-99) mg/dL POC Glucose (mg/dL) 236 H 374 H (75-99) mg/dL Plasma Lactic Acid Jose 3.2 H* (0.7-2.0) mmol/L AST (14-36) U/L ALT (9-52) U/L Total Protein (6.3-8.2) g/dL Albumin (3.5-5.0) g/dL 02/13/18 02/14/18 02/14/18 Range/Units 22:56 05:50 05:50 WBC 25.5 H (3.8-10.6) k/uL Plt Count 121 L (150-450) k/uL Neutrophils # (Manual) 22.10 H (1.3-7.7) k/uL Monocytes # (Manual) 1.28 H (0-1.0) k/uL Chloride 116 H (98-107) mmol/L Carbon Dioxide 20 L (22-30) mmol/L BUN 29 H (7-17) mg/dL Creatinine 1.35 H (0.52-1.04) mg/dL Glucose 159 H (74-99) mg/dL POC Glucose (mg/dL) 313 H (75-99) mg/dL Plasma Lactic Acid Jose (0.7-2.0) mmol/L AST 46 H (14-36) U/L ALT 83 H (9-52) U/L Total Protein 5.6 L (6.3-8.2) g/dL Albumin 3.1 L (3.5-5.0) g/dL 02/14/18 02/14/18 Range/Units 06:25 12:14 WBC (3.8-10.6) k/uL Plt Count (150-450) k/uL Neutrophils # (Manual) (1.3-7.7) k/uL Monocytes # (Manual) (0-1.0) k/uL Chloride (98-107) mmol/L Carbon Dioxide (22-30) mmol/L BUN (7-17) mg/dL Creatinine (0.52-1.04) mg/dL Glucose (74-99) mg/dL POC Glucose (mg/dL) 168 H 201 H (75-99) mg/dL Plasma Lactic Acid Jose (0.7-2.0) mmol/L AST (14-36) U/L ALT (9-52) U/L Total Protein (6.3-8.2) g/dL Albumin (3.5-5.0) g/dL Microbiology - Last 24 Hours (Table) 02/13/18 11:08 Urine Culture - Preliminary Urine,Catheterized Gram Neg Bacilli 02/13/18 08:54 Blood Culture Gram Stain - Preliminary Blood Blood Culture - Preliminary Gram Neg Bacilli 02/13/18 08:54 Blood Culture - Final Blood Assessment and Plan Plan: Assessment 1 acute sepsis with gram-negative bacillus secondary to a gram-negative urine tract infection and possibly right kidney pyelonephritis. CAT scan of the abdomen was noted and the patient has some nephrolithiasis and could've passed a stone on the right side knowing that there was edema around the right kidney in the right ureter. The gram-negative bacillus was cultured in the urine and the blood and the patient is currently on IV meropenem 2 acute febrile illness and lactic acidosis secondary to above, and the lactic acid from last measurement is down to 2.0 3 mild hypotension recovered with fluid resuscitation 4 shortness of breath multifactorial partly related to underlying UTI, and the patient is improved and echocardiac Sean shows a normal LV function without any valvular abnormalities 5 COPD with an acute exacerbation, improving 6 diabetes mellitus 7 hypertension 8 hyperlipidemia 9 coronary artery disease with previous [place] 10 history of gastric ulcers 11 history of multiple TIAs 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 Continue IV meropenem. Discontinue the vancomycin. Discontinue the IV Solu-Medrol and switch this patient a prednisone burst taper. Continue bronchodilators. We'll continue to follow.
[2018-02-14] MEDS ORDERED: LABETALOL 200 MG TAB PO SCH (16:00)
[2018-02-14 17:18] LABS: Glucose,Whole Blood 254 mg/dL (75-99)
[2018-02-14] MEDS: INSULIN DETEMIR 100 UNIT/ML 10 ML VIAL SQ SCH (17:31)
[2018-02-14] MEDS: ALPRAZolam 0.25 MG TAB PO PRN (19:39)
[2018-02-14] MEDS: ACETAMINOPHEN TAB 500 MG TAB PO PRN (19:39)
[2018-02-14] MEDS: cefTRIAXone 2,000 MG in SODIUM CHLORIDE 0.9% 100 ML IVPB SCH (19:40)
[2018-02-14 21:00] LABS: Glucose,Whole Blood 358 mg/dL (75-99)
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
[2018-02-15] MEDS: SODIUM CHLORIDE 0.9% 1,000 ML IV SCH ×2 (03:31→08:58)
[2018-02-15 06:11] LABS: Glucose,Whole Blood 148 mg/dL (75-99)
[2018-02-15] MEDS: GLIMEPIRIDE 1 MG TAB PO SCH (06:40)
[2018-02-15] MEDS: INSULIN ASPART 100 UNIT/ML 1 ML 10 ML VIAL SQ SCH ×4 (06:41→22:08)
[2018-02-15 07:11] LABS: Basophils % (A) 0 %; Eosinophils # (A) 0.1 k/uL (0-0.7); Eosinophils % (A) 0 %; HCT 39.4 % (34.0-46.0); HGB 12.1 gm/dL (11.4-16.0); Hypochromasia Slight; Lymphocytes # (A) 1.5 k/uL (1.0-4.8); Lymphocytes % (A) 6 %; MCH 26.6 pg (25.0-35.0); MCHC 30.6 g/dL (31.0-37.0); MCV 86.7 fL (80.0-100.0); Mean Platelet Volume 9.2; Monocytes # (A) 0.9 k/uL (0-1.0); Monocytes % (A) 3 %; Neutrophils # (A) 22.1 k/uL (1.3-7.7); Neutrophils % (A) 89 %; Platelet Count 156 k/uL (150-450); RBC 4.55 m/uL (3.80-5.40); RDW 14.9 % (11.5-15.5); WBC 24.9 k/uL (3.8-10.6)
[2018-02-15 07:32] LABS: Calcium 8.9 mg/dL (8.4-10.2); Potassium 4.5 mmol/L (3.5-5.1); Total Bilirubin 0.2 mg/dL (0.2-1.3); Total Protein 5.6 g/dL (6.3-8.2)
[2018-02-15] MEDS: BUDESONIDE 1 MG/2 ML NEBU INHALATION SCH ×2 (07:48→19:25)
[2018-02-15] MEDS: IPRATROPIUM-ALBUTEROL 3 ML NEB INHALATION SCH ×4 (07:48→19:25)
[2018-02-15] MEDS: FORMOTEROL FUMARATE 20 MCG/2 ML NEBU INHALATION SCH ×2 (07:48→19:25)
[2018-02-15] MEDS: NICOTINE 14MG/24HR PATCH TRANSDERM SCH (09:00)
[2018-02-15] MEDS: CLOPIDOGREL 75 MG TAB PO SCH (09:01)
[2018-02-15] MEDS: GABAPENTIN 300 MG CAP PO SCH ×3 (09:01→20:27)
[2018-02-15] MEDS: HEPARIN SODIUM,PORCINE 5,000 UNIT/ML 1 ML VIAL SQ SCH ×2 (09:01→20:27)
[2018-02-15] MEDS: POTASSIUM CHLORIDE ER 10 MEQ TAB.ER.PRT PO SCH (09:01)
[2018-02-15] MEDS: FUROSEMIDE 10 MG/ML 4 ML VIAL IV SCH (09:01)
[2018-02-15] MEDS: predniSONE 20 MG TAB PO SCH (09:02)
[2018-02-15] MEDS: LORATADINE 10 MG TAB PO SCH (09:02)
[2018-02-15] MEDS: SERTRALINE 100 MG TAB PO SCH (09:02)
[2018-02-15] MEDS: TRIAMCINOLONE 0.1% CREAM 80 GM TUBE TOPICAL SCH ×2 (09:03→20:22)
[2018-02-15] MEDS: HYDROcodone/APAP 10-325MG 1 EACH TAB PO PRN ×2 (11:25→20:25)
[2018-02-15] MEDS: cefTRIAXone 2,000 MG in SODIUM CHLORIDE 0.9% 100 ML IVPB SCH (11:28)
--- NOTE | 2018-02-15 11:49 | P.PN ---
Subjective Progress Note Date: 02/15/18 Principal diagnosis: Acute sepsis, urinary tract infection, possibly right kidney pyelonephritis, urine cultures are positive for E. coli 38-year-old female patient who presented to the hospital because of fever, generalized weakness, chills, pain in the right flank area and not feeling well. No dysuria frequency or urgency. No change in the color or the characteristics of the urine. She has had previous episodes of UTI. She has had previous bouts of pneumonia. In hospital she start also getting some shortness of breath. Her urinalysis was suggestive of UTI. Influenza screen was negative. Lactic acid level was at 2.6. ProBNP level was 1760. The white cell count is not elevated at 4.4. The patient's renal function showed a creatinine of 1.2 with a BUN of 29. Sodium level is at 143 and the patient's serum bicarb is at 17. Chest x-ray shows cardiomegaly along with some mild interstitial process. No acute infiltration or airspace disease noted. The patient has received 2-1/2 L of IV fluids. She was given Rocephin and Zithromax. No nausea. No emesis. No abdominal pain. No altered mentation. No headaches. No skin rashes. On 02/15/2008 and I'm seeing this patient for a follow-up. The patient was seen yesterday in a septic state. This was related to an underlying urine checked infection. The patient's urine culture came back positive for gram- negative bacillus and gram-negative bacillus was also cultured in the blood. The patient was switched IV Merrem. Overall doing better. No fevers since the evening. Hemodynamically stable. No nausea or vomiting. No abdominal pain. CAT scan of the abdomen was also completed and the patient was found to have coarse interstitial infiltrates of the lung bases bilaterally. No pericardial effusion. No adrenal mass. Kidneys were normal in size. There was mild right kidney hydronephrosis without any ureteral calculus. There is right-sided perinephric edema and there is a small cavernous in the lower pole of the right kidney measuring 4 mm in size. There is right-sided periurethral edema. The findings are almost insistent with a stone that could've passed and there is no obstructive lesion at this point and there may be an underlying component of pyelonephritis. On 02/15/2018 patient seen in follow-up on selective care unit. He is resting comfortably in bed, in no acute distress, still has the visual discomfort over right flank area, but no ongoing fevers, or chills. No worsening shortness of breath, she is on 2 L per nasal cannula and her pulse ox is 95%, she is afebrile , hemodynamically stable. Lung sounds are for a few scattered rhonchi, no wheezes, no crackles. Blood and urine cultures were positive for E. coli, with sensitivity to Rocephin, which the patient is currently on. Echocardiogram results were noted, patient's EF is 50-55%, she is on once daily dose of IV Lasix, she is in negative fluid balance. No chest pain, no worsening shortness of breath. Feeling better overall. Objective - Vital Signs Vital signs: Vital Signs Temp 98.2 F 02/15/18 11:27 Pulse 72 02/15/18 11:33 Resp 16 02/15/18 11:33 BP 155/81 02/15/18 11:27 Pulse Ox 95 02/15/18 11:27 Intake & Output 02/14/18 02/15/18 02/15/18 18:59 06:59 18:59 Intake Total 1230 1140 300 Output Total 245 926 3012 Balance 630 790 -700 Weight 120.4 kg Intake: IV 750 900 Meropenem 2 gm In Sodium 100 Chloride 0.9% 100 ml @ 200 mls/hr IVPB Q12H [facility] Rx#:[id number] Sodium Chloride 0.9% 1, 650 900 000 ml @ 75 mls/hr IV . [id number] [facility] Rx#:[id number] Oral 480 240 300 Output: Urine 072 680 2357 Other: Voiding Method Bedside Commode Bedside Commode Bedside Commode # Voids 2 1 # Bowel Movements 1 - Exam Obese, comfortable and the patient nonacute respiratory distress and she is calm and comfortable answering questions and she is very appropriate Head exam was generally normal. There was no scleral icterus or corneal arcus. Mucous membranes were moist. Neck was supple and without jugular venous distension, thyromegaly, or carotid bruits. Carotids were easily palpable bilaterally. There was no adenopathy. Mallampati class IV and there is no goiter or neck masses Lung sounds are diminished with a few scattered rhonchi Cardiac exam revealed the PMI to be normally situated and sized. The rhythm was regular and no extrasystoles were noted during several minutes of auscultation. The first and second heart sounds were normal and physiologic splitting of the second heart sound was noted. There were no murmurs, rubs, clicks, or gallops. Abdominal exam revealed normal bowel sounds. The abdomen was soft, non-tender, and without masses, organomegaly, or appreciable enlargement of the abdominal aorta. Examination of the extremities revealed easily palpable radial, femoral and pedal pulses. There was no cyanosis, clubbing or edema. Examination of the skin revealed no evidence of significant rashes, suspicious appearing nevi or other concerning lesions. Neurologically the patient is awake and alert and is no focal neurological deficit - Labs CBC & Chem 7: 02/15/18 06:35 02/15/18 06:35 Labs: Abnormal Lab Results - Last 24 Hours (Table) 02/14/18 02/14/18 02/14/18 Range/Units 12:14 17:10 20:55 WBC (3.8-10.6) k/uL MCHC (31.0-37.0) g/dL Neutrophils # (1.3-7.7) k/uL Sodium (137-145) mmol/L Chloride (98-107) mmol/L Carbon Dioxide (22-30) mmol/L BUN (7-17) mg/dL Creatinine (0.52-1.04) mg/dL Glucose (74-99) mg/dL POC Glucose (mg/dL) 201 H 254 H 358 H (75-99) mg/dL ALT (9-52) U/L Total Protein (6.3-8.2) g/dL Albumin (3.5-5.0) g/dL 02/15/18 02/15/18 02/15/18 Range/Units 06:09 06:35 06:35 WBC 24.9 H (3.8-10.6) k/uL MCHC 30.6 L (31.0-37.0) g/dL Neutrophils # 22.1 H (1.3-7.7) k/uL Sodium 146 H (137-145) mmol/L Chloride 119 H (98-107) mmol/L Carbon Dioxide 20 L (22-30) mmol/L BUN 28 H (7-17) mg/dL Creatinine 1.19 H (0.52-1.04) mg/dL Glucose 140 H (74-99) mg/dL POC Glucose (mg/dL) 148 H (75-99) mg/dL ALT 62 H (9-52) U/L Total Protein 5.6 L (6.3-8.2) g/dL Albumin 3.0 L (3.5-5.0) g/dL Microbiology - Last 24 Hours (Table) 02/13/18 11:08 Urine Culture - Final Urine,Catheterized Escherichia coli 02/13/18 08:54 Blood Culture Gram Stain - Final Blood Blood Culture - Final Escherichia coli Assessment and Plan Plan: 1 acute sepsis with gram-negative bacillus secondary to a gram-negative urine tract infection and possibly right kidney pyelonephritis. CAT scan of the abdomen was noted and the patient has some nephrolithiasis and could've passed a stone on the right side knowing that there was edema around the right kidney in the right ureter. The gram-negative bacillus was cultured in the urine and the blood and the patient is currently on IV meropenem 2 acute febrile illness and lactic acidosis secondary to above, and the lactic acid from last measurement is down to 2.0 3 mild hypotension recovered with fluid resuscitation 4 shortness of breath multifactorial partly related to underlying UTI, and the patient is improved and echocardiac Sean shows a normal LV function without any valvular abnormalities 5 COPD with an acute exacerbation, improving 6 diabetes mellitus 7 hypertension 8 hyperlipidemia 9 coronary artery disease with previous [place] 10 history of gastric ulcers 11 history of multiple TIAs 12 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 No ongoing fever or chills, still has some residual tenderness over right flank area. Continue with oral prednisone, and nebulized bronchodilators. GI/DVT prophylaxis. I performed a history & physical examination of the patient and discussed their management with my nurse practitioner, Zakia Estrada. I reviewed the nurse practitioner's note and agree with the documented findings and plan of care. Lung sounds are a few scattered rhonchi. The findings and the impression was discussed with the patient. I attest to the documentation by the nurse practitioner. Time with Patient: Less than 30
[2018-02-15 12:31] LABS: Glucose,Whole Blood 222 mg/dL (75-99)
[2018-02-15] MEDS: ALPRAZolam 0.25 MG TAB PO PRN (12:31)
[2018-02-15] MEDS: ISOSORBIDE MONONITRATE ER 30 MG TAB.ER.24H PO SCH (12:31)
--- NOTE | 2018-02-15 12:44 | P.PN ---
Subjective Progress Note Date: 02/15/18 This is a 62-year-old female patient who presented to the hospital with weakness and fever as well as shortness of breath. Patient was found to be hypotensive and cardiology was asked to evaluate her. Urinalysis is positive patient is being treated with IV antibiotics and her blood pressure has responded. Chest x-ray didn't show a component of heart failure and pro BNP was 6470. She's been on IV Lasix which will be converted to oral form today. She seen sitting up in bed area denies any chest discomfort, has some shortness breath with minimal activity. Denies palpitations. Cardiac enzymes are negative. EKG does not show any acute ischemic changes. Objective - Vital Signs Vital signs: Vital Signs Temp 98.2 F 02/15/18 11:27 Pulse 74 02/15/18 11:44 Resp 16 02/15/18 11:33 BP 155/81 02/15/18 11:27 Pulse Ox 95 02/15/18 11:27 Intake & Output 02/14/18 02/15/18 02/15/18 18:59 06:59 18:59 Intake Total 1230 1140 300 Output Total 082 710 5893 Balance 630 790 -700 Weight 120.4 kg Intake: IV 750 900 Meropenem 2 gm In Sodium 100 Chloride 0.9% 100 ml @ 200 mls/hr IVPB Q12H [facility] Rx#:[id number] Sodium Chloride 0.9% 1, 650 900 000 ml @ 75 mls/hr IV . [id number] [facility] Rx#:[id number] Oral 480 240 300 Output: Urine 777 [id number] Other: Voiding Method Bedside Commode Bedside Commode Bedside Commode # Voids 2 1 # Bowel Movements 1 - Exam Gen.: Obese, comfortable and the patient nonacute respiratory distress. Lung: sounds are diminished with a few scattered rhonchi Cardiac: Regular rate and rhythm without murmur. S1 and S2 are heard. Abdomin: Revealed normal bowel sounds. The abdomen was soft, non-tender, and without masses, organomegaly. Extremities: Pedal pulses are palpable. Minimal lower extremity edema noted. Neurological: Alert and oriented 3. No tremors noted. - Labs CBC & Chem 7: 02/15/18 06:35 02/15/18 06:35 Labs: Abnormal Lab Results - Last 24 Hours (Table) 02/14/18 02/14/18 02/15/18 Range/Units 17:10 20:55 06:09 WBC (3.8-10.6) k/uL MCHC (31.0-37.0) g/dL Neutrophils # (1.3-7.7) k/uL Sodium (137-145) mmol/L Chloride (98-107) mmol/L Carbon Dioxide (22-30) mmol/L BUN (7-17) mg/dL Creatinine (0.52-1.04) mg/dL Glucose (74-99) mg/dL POC Glucose (mg/dL) 254 H 358 H 148 H (75-99) mg/dL ALT (9-52) U/L Total Protein (6.3-8.2) g/dL Albumin (3.5-5.0) g/dL 02/15/18 02/15/18 02/15/18 Range/Units 06:35 06:35 12:10 WBC 24.9 H (3.8-10.6) k/uL MCHC 30.6 L (31.0-37.0) g/dL Neutrophils # 22.1 H (1.3-7.7) k/uL Sodium 146 H (137-145) mmol/L Chloride 119 H (98-107) mmol/L Carbon Dioxide 20 L (22-30) mmol/L BUN 28 H (7-17) mg/dL Creatinine 1.19 H (0.52-1.04) mg/dL Glucose 140 H (74-99) mg/dL POC Glucose (mg/dL) 222 H (75-99) mg/dL ALT 62 H (9-52) U/L Total Protein 5.6 L (6.3-8.2) g/dL Albumin 3.0 L (3.5-5.0) g/dL Microbiology - Last 24 Hours (Table) 02/13/18 11:08 Urine Culture - Final Urine,Catheterized Escherichia coli 02/13/18 08:54 Blood Culture Gram Stain - Final Blood Blood Culture - Final Escherichia coli Assessment and Plan Assessment: Sepsis with UTI Hypotension secondary to #1 History of CAD status post angioplasty Diastolic heart failure Plan: Echocardiogram shows a normal LV size with moderate concentric LVH, EF is 50-55% . No pulmonary hypertension. Change IV Lasix to oral form. Restart Imdur. No further recommendations at this time. We will continue to follow her closely. Continue to hold other medications for now until her blood pressure responds. We will continue to follow her closely and make changes as appropriate.
--- NOTE | 2018-02-15 14:04 | P.PN ---
Subjective Progress Note Date: 02/15/18 Principal diagnosis: Shortness of breath I'm dictating for Dr. Rodriguez. Interval history: Starr James is a 62-year-old female patient who presented to the hospital because of fever, generalized weakness, chills, pain in the right flank area and not feeling well. She was admitted to inpatient unit for further evaluation. in he emergency center where she was found evidence of fever , right flank pain and lactic acidosis. Urinalysis was abnormal and she was brought in the hospital and hydration antibiotic therapy was begun. There is no become evidence of a positive blood culture with gram-negative bacilli and a leukocytosis of 25.5. She has had infectious disease also pulmonary consultation. 02/15/2018. She was seen and examined this morning. She is resting comfortably in bed. Patient continued to have discomfort over the right flank area. Denied fever chills or diaphoresis. Blood and urine cultures were positive with E. coli that was sensitive to Rocephin, patient is currently receiving Rocephin. Echocardiogram results were noted, patient's EF is 50-55%, she is on once daily dose of IV Lasix. IV hydration discontinued. Her blood pressures are in 150s now , blood pressure medications were discontinued and patient was hypotensive, will restart her antihypertensive medications slowly. Review of systems: Constitutional: Reports fatigue, Reports fever, Reports weakness, Reports weight gain Eyes: denies blurred vision, denies bulging eye, denies decreased vision Ears, nose, mouth and throat: Denies headache, Denies sore throat Cardiovascular: Reports dyspnea on exertion Respiratory: Reports dyspnea Gastrointestinal: Denies abdominal pain, Denies diarrhea, Denies nausea, Denies vomiting Genitourinary: Reports dysuria Musculoskeletal: absent: ankle pain, ankle stiffness, ankle swelling Neurological: Reports weakness Endocrine: Reports fatigue The rest of the 14 point review of systems is negative Objective - Vital Signs Vital signs: Vital Signs Temp 98.2 F 02/15/18 11:27 Pulse 74 02/15/18 11:44 Resp 16 02/15/18 11:33 BP 155/81 02/15/18 11:27 Pulse Ox 95 02/15/18 11:27 Intake & Output 02/14/18 02/15/18 02/15/18 18:59 06:59 18:59 Intake Total 1230 1140 1040 Output Total 072 730 0577 Balance 630 790 40 Weight 120.4 kg Intake: IV 750 900 100 Meropenem 2 gm In Sodium 100 Chloride 0.9% 100 ml @ 200 mls/hr IVPB Q12H [facility] Rx#:[id number] Sodium Chloride 0.9% 1, 650 900 000 ml @ 75 mls/hr IV . [id number] [facility] Rx#:[id number] cefTRIAXone 2,000 mg In 100 Sodium Chloride 0.9% 100 ml @ 100 mls/hr IVPB Q24HR [facility] Rx#:[id number] Oral 480 240 940 Output: Urine 724 363 [id number] Other: Voiding Method Bedside Commode Bedside Commode Bedside Commode # Voids 2 1 # Bowel Movements 1 - Exam General : Obese, comfortable likely distress Head exam was generally normal. T Neck was supple and without jugular venous distension, no JVD Lung sounds are with some scattered rhonchi. No crackles or wheezing. Cardiac S1-S2 present regular rate and rhythm Abdominal exam revealed normal bowel sounds. The abdomen was soft, non-tender, bowel sounds are normal Extremities revealed easily palpable radial, femoral and pedal pulses. There was no cyanosis, clubbing or edema. Examination of the skin revealed no evidence of significant rashes, suspicious appearing nevi or other concerning lesions. Neurologically the patient is awake and alert and is no focal neurological deficit Psychiatric-anxious Active Medications Acetaminophen (Tylenol Tab) 500 mg PO Q6HR PRN PRN Reason: Fever and/ or Mild Pain Last Admin: 02/14/18 19:39 Dose: 500 mg Hydrocodone Bitart/Acetaminophen ([place] 10) 1 each PO TID PRN PRN Reason: Moderate Pain Last Admin: 02/15/18 11:25 Dose: 1 each Albuterol/Ipratropium (Duoneb 0.5 Mg-3 Mg/3 Ml Soln) 3 ml INHALATION RT-QID [facility] Last Admin: 02/15/18 11:33 Dose: 3 ml Albuterol/Ipratropium (Duoneb 0.5 Mg-3 Mg/3 Ml Soln) 3 ml INHALATION RT-QID PRN PRN Reason: Shortness Of Breath Or Wheezing Alprazolam (Xanax) 0.25 mg PO TID PRN PRN Reason: Anxiety Last Admin: 02/15/18 12:31 Dose: 0.25 mg Budesonide (Pulmicort) 1 mg INHALATION RT-BID [facility] Last Admin: 02/15/18 07:48 Dose: 1 mg Clopidogrel Bisulfate (Plavix) 75 mg PO DAILY [facility] Last Admin: 02/15/18 09:01 Dose: 75 mg Formoterol Fumarate (Perforomist) 20 mcg INHALATION RT-BID [facility] Last Admin: 02/15/18 07:48 Dose: 20 mcg Furosemide (Lasix) 40 mg IV DAILY [facility] Last Admin: 02/15/18 09:01 Dose: 40 mg Gabapentin (Neurontin) 600 mg PO TID [facility] Last Admin: 02/15/18 09:01 Dose: 600 mg Glimepiride (Amaryl) 1 mg PO AC-BRKFST [facility] Last Admin: 02/15/18 06:40 Dose: 1 mg Heparin Sodium (Porcine) (Heparin) 5,000 unit SQ Q12HR [facility] Last Admin: 02/15/18 09:01 Dose: 5,000 unit Ceftriaxone Sodium 2,000 mg/ (Sodium Chloride) 100 mls @ 100 mls/hr IVPB Q24HR [facility] Last Admin: 02/15/18 11:28 Dose: 100 mls/hr Insulin Aspart (Novolog) 0 unit SQ ACHS [facility]; Protocol Last Admin: 02/15/18 12:28 Dose: 7 unit Insulin Detemir (Levemir) 20 unit SQ PC-SUPPER [facility] Last Admin: 02/14/18 17:31 Dose: 20 unit Isosorbide Mononitrate (Imdur) 30 mg PO DAILY [facility] Last Admin: 02/15/18 12:31 Dose: 30 mg Loratadine (Claritin) 10 mg PO DAILY [facility] Last Admin: 02/15/18 09:02 Dose: 10 mg Methocarbamol (Robaxin) 750 mg PO BID PRN PRN Reason: Pain Last Admin: 02/14/18 23:53 Dose: 750 mg Miscellaneous Information (Pneumonia Protocol Utilized) 1 each PO ONCE PRN PRN Reason: Per Protocol Nicotine (Habitrol 14mg/24hr Patch) 1 patch TRANSDERM DAILY [facility] Last Admin: 02/15/18 09:00 Dose: 1 patch Nitroglycerin (Nitrostat) 0.4 mg SUBLINGUAL Q5M PRN PRN Reason: Chest Pain Non-Formulary Medication (Dosing Per Pharmacy) 1 each MISCELLANE DIRECTED [facility] Last Admin: 02/15/18 04:13 Dose: Not Given Potassium Chloride (K-Dur 10) 10 meq PO DAILY [facility] Last Admin: 02/15/18 09:01 Dose: 10 meq Prednisone () 40 mg PO DAILY [facility] Last Admin: 02/15/18 09:02 Dose: 40 mg Sertraline HCl (Zoloft) 100 mg PO DAILY [facility] Last Admin: 02/15/18 09:02 Dose: 100 mg Temazepam (Restoril) 15 mg PO HS PRN PRN Reason: Insomnia Triamcinolone Acetonide (Kenalog) 1 applic TOPICAL BID [facility] Last Admin: 02/15/18 09:03 Dose: Not Given - Labs CBC & Chem 7: 02/15/18 06:35 02/15/18 06:35 Labs: Abnormal Lab Results - Last 24 Hours (Table) 02/14/18 02/14/18 02/15/18 Range/Units 17:10 20:55 06:09 WBC (3.8-10.6) k/uL MCHC (31.0-37.0) g/dL Neutrophils # (1.3-7.7) k/uL Sodium (137-145) mmol/L Chloride (98-107) mmol/L Carbon Dioxide (22-30) mmol/L BUN (7-17) mg/dL Creatinine (0.52-1.04) mg/dL Glucose (74-99) mg/dL POC Glucose (mg/dL) 254 H 358 H 148 H (75-99) mg/dL ALT (9-52) U/L Total Protein (6.3-8.2) g/dL Albumin (3.5-5.0) g/dL 02/15/18 02/15/18 02/15/18 Range/Units 06:35 06:35 12:10 WBC 24.9 H (3.8-10.6) k/uL MCHC 30.6 L (31.0-37.0) g/dL Neutrophils # 22.1 H (1.3-7.7) k/uL Sodium 146 H (137-145) mmol/L Chloride 119 H (98-107) mmol/L Carbon Dioxide 20 L (22-30) mmol/L BUN 28 H (7-17) mg/dL Creatinine 1.19 H (0.52-1.04) mg/dL Glucose 140 H (74-99) mg/dL POC Glucose (mg/dL) 222 H (75-99) mg/dL ALT 62 H (9-52) U/L Total Protein 5.6 L (6.3-8.2) g/dL Albumin 3.0 L (3.5-5.0) g/dL Microbiology - Last 24 Hours (Table) 02/13/18 11:08 Urine Culture - Final Urine,Catheterized Escherichia coli 02/13/18 08:54 Blood Culture Gram Stain - Final Blood Blood Culture - Final Escherichia coli Assessment and Plan Assessment: 1 acute febrile illness expected to be related to an underlying UTI. Doubt pneumonia 2 mild lactic acidosis 3 mild hypotension recovered with fluid resuscitation 4 shortness of breath multifactorial partly related to underlying UTI, pneumonia is doubtful 5 COPD with an acute exacerbation 6 diabetes mellitus 7 hypertension 8 hyperlipidemia 9 coronary artery disease with previous [place] 10 history of gastric ulcers 11 history of multiple TIAs 12 history of SAMPLE WEAVER aneurysm requiring SAMPLE WEAVER coiling 13 history of polynephritis a nephrolithiasis 14 history of chronic back pain and the patient has a nerve stimulator in the back and she has received multiple epidural shots 15 obesity with BMI of 47.2 Plan: We'll continue current medications, antibiotics. Rocephin Continue bronchodilators. Continue steroids. DVT and GI prophylaxis. Blood As well as urine culture is positive with E. coli Patient is also getting evaluated by cardiology service. Her blood pressures are improving, will restart her antihypertensive medications slowly Continue GI and DVT prophylaxis. Prognosis guarded due to multiple medical problems. Monitor patient closely, further plans based on her clinical course. The impression and plan of care has been dictated as directed. : I performed a history and examination of this patient, discussed the same with the dictator. I agree with the dictator's note ,documented as a scribe. Any additional findings or plans will be noted.
[2018-02-15 17:32] LABS: Glucose,Whole Blood 264 mg/dL (75-99)
[2018-02-15] MEDS: INSULIN DETEMIR 100 UNIT/ML 10 ML VIAL SQ SCH (18:10)
[2018-02-15] MEDS ORDERED: INSULIN ASPART 100 UNIT/ML 1 ML 10 ML VIAL SQ ONE (18:34)
[2018-02-15 21:05] LABS: Glucose,Whole Blood 230 mg/dL (75-99)
[2018-02-16 05:42] LABS: Glucose,Whole Blood 126 mg/dL (75-99)
[2018-02-16] MEDS: INSULIN ASPART 100 UNIT/ML 1 ML 10 ML VIAL SQ SCH ×2 (06:29→12:06)
[2018-02-16] MEDS: GLIMEPIRIDE 1 MG TAB PO SCH (06:35)
[2018-02-16] MEDS: HYDROcodone/APAP 10-325MG 1 EACH TAB PO PRN (06:35)
[2018-02-16 07:24] LABS: Albumin 3.3 g/dL (3.5-5.0); Calcium 9.5 mg/dL (8.4-10.2); Potassium 4.4 mmol/L (3.5-5.1); Total Bilirubin 0.2 mg/dL (0.2-1.3); Total Protein 6.1 g/dL (6.3-8.2)
[2018-02-16 07:36] LABS: Basophils % (A) 0 %; Eosinophils # (A) 0.1 k/uL (0-0.7); Eosinophils % (A) 0 %; HCT 40.3 % (34.0-46.0); HGB 12.9 gm/dL (11.4-16.0); Lymphocytes # (A) 3.1 k/uL (1.0-4.8); Lymphocytes % (A) 13 %; MCH 27.3 pg (25.0-35.0); MCV 85.2 fL (80.0-100.0); Mean Platelet Volume 8.9; Monocytes # (A) 0.8 k/uL (0-1.0); Monocytes % (A) 3 %; Neutrophils # (A) 19.1 k/uL (1.3-7.7); Neutrophils % (A) 82 %; Platelet Count 168 k/uL (150-450); RBC 4.73 m/uL (3.80-5.40); RDW 14.9 % (11.5-15.5); WBC 23.3 k/uL (3.8-10.6)
[2018-02-16] MEDS: IPRATROPIUM-ALBUTEROL 3 ML NEB INHALATION SCH ×3 (07:42→15:11)
[2018-02-16] MEDS: FORMOTEROL FUMARATE 20 MCG/2 ML NEBU INHALATION SCH (07:42)
[2018-02-16] MEDS: BUDESONIDE 1 MG/2 ML NEBU INHALATION SCH (07:43)
[2018-02-16] MEDS: FUROSEMIDE 10 MG/ML 4 ML VIAL IV SCH (08:29)
[2018-02-16] MEDS: NICOTINE 14MG/24HR PATCH TRANSDERM SCH (08:30)
[2018-02-16] MEDS: CLOPIDOGREL 75 MG TAB PO SCH (08:30)
[2018-02-16] MEDS: LORATADINE 10 MG TAB PO SCH (08:30)
[2018-02-16] MEDS: GABAPENTIN 300 MG CAP PO SCH ×2 (08:30→16:17)
[2018-02-16] MEDS: POTASSIUM CHLORIDE ER 10 MEQ TAB.ER.PRT PO SCH (08:30)
[2018-02-16] MEDS: predniSONE 20 MG TAB PO SCH (08:30)
[2018-02-16] MEDS: SERTRALINE 100 MG TAB PO SCH (08:30)
[2018-02-16] MEDS: HEPARIN SODIUM,PORCINE 5,000 UNIT/ML 1 ML VIAL SQ SCH (08:30)
[2018-02-16] MEDS: ISOSORBIDE MONONITRATE ER 30 MG TAB.ER.24H PO SCH (08:30)
[2018-02-16] MEDS: TRIAMCINOLONE 0.1% CREAM 80 GM TUBE TOPICAL SCH (08:30)
[2018-02-16] MEDS: cefTRIAXone 2,000 MG in SODIUM CHLORIDE 0.9% 100 ML IVPB SCH (08:49)
[2018-02-16 09:20] VITALS: RESP 20
--- NOTE | 2018-02-16 11:04 | P.PN ---
Subjective Progress Note Date: 02/16/18 Principal diagnosis: Acute sepsis, urinary tract infection, possibly right kidney pyelonephritis, urine cultures are positive for E. coli 38-year-old female patient who presented to the hospital because of fever, generalized weakness, chills, pain in the right flank area and not feeling well. No dysuria frequency or urgency. No change in the color or the characteristics of the urine. She has had previous episodes of UTI. She has had previous bouts of pneumonia. In hospital she start also getting some shortness of breath. Her urinalysis was suggestive of UTI. Influenza screen was negative. Lactic acid level was at 2.6. ProBNP level was 1760. The white cell count is not elevated at 4.4. The patient's renal function showed a creatinine of 1.2 with a BUN of 29. Sodium level is at 143 and the patient's serum bicarb is at 17. Chest x-ray shows cardiomegaly along with some mild interstitial process. No acute infiltration or airspace disease noted. The patient has received 2-1/2 L of IV fluids. She was given Rocephin and Zithromax. No nausea. No emesis. No abdominal pain. No altered mentation. No headaches. No skin rashes. On 02/15/2008 and I'm seeing this patient for a follow-up. The patient was seen yesterday in a septic state. This was related to an underlying urine checked infection. The patient's urine culture came back positive for gram- negative bacillus and gram-negative bacillus was also cultured in the blood. The patient was switched IV Merrem. Overall doing better. No fevers since the evening. Hemodynamically stable. No nausea or vomiting. No abdominal pain. CAT scan of the abdomen was also completed and the patient was found to have coarse interstitial infiltrates of the lung bases bilaterally. No pericardial effusion. No adrenal mass. Kidneys were normal in size. There was mild right kidney hydronephrosis without any ureteral calculus. There is right-sided perinephric edema and there is a small cavernous in the lower pole of the right kidney measuring 4 mm in size. There is right-sided periurethral edema. The findings are almost insistent with a stone that could've passed and there is no obstructive lesion at this point and there may be an underlying component of pyelonephritis. On 02/15/2018 patient seen in follow-up on selective care unit. He is resting comfortably in bed, in no acute distress, still has the visual discomfort over right flank area, but no ongoing fevers, or chills. No worsening shortness of breath, she is on 2 L per nasal cannula and her pulse ox is 95%, she is afebrile , hemodynamically stable. Lung sounds are for a few scattered rhonchi, no wheezes, no crackles. Blood and urine cultures were positive for E. coli, with sensitivity to Rocephin, which the patient is currently on. Echocardiogram results were noted, patient's EF is 50-55%, she is on once daily dose of IV Lasix, she is in negative fluid balance. No chest pain, no worsening shortness of breath. Feeling better overall. On 02/16/2018 patient seen in follow-up on selective care unit. No fever or chills through the night, room air pulse ox is 92%, patient is hemodynamically stable, no worsening shortness of breath. Lung sounds are positive for a few scattered rhonchi, no significant wheezing. Blood and urine cultures were positive for E. coli, and patient is on Rocephin 2 g daily. Objective - Vital Signs Vital signs: Vital Signs Temp 98.1 F 02/16/18 08:00 Pulse 70 02/16/18 08:01 Resp 20 02/16/18 08:00 BP 126/65 02/16/18 08:00 Pulse Ox 92 L 02/16/18 08:00 Intake & Output 02/15/18 02/16/18 02/16/18 18:59 06:59 18:59 Intake Total 1590 360 Output Total 2000 Balance -410 360 Intake: IV 550 Sodium Chloride 0.9% 1, 450 000 ml @ 75 mls/hr IV . [id number] ERASMO Rx#:[id number] cefTRIAXone 2,000 mg In 100 Sodium Chloride 0.9% 100 ml @ 100 mls/hr IVPB Q24HR ERASMO Rx#:[id number] Oral 1040 360 Output: Urine 1999 Other: Voiding Method Bedside Commode # Voids 1 1 # Bowel Movements 1 - Exam Obese, comfortable and the patient nonacute respiratory distress and she is calm and comfortable answering questions and she is very appropriate Head exam was generally normal. There was no scleral icterus or corneal arcus. Mucous membranes were moist. Neck was supple and without jugular venous distension, thyromegaly, or carotid bruits. Carotids were easily palpable bilaterally. There was no adenopathy. Mallampati class IV and there is no goiter or neck masses Lung sounds are diminished with a few scattered rhonchi Cardiac exam revealed the PMI to be normally situated and sized. The rhythm was regular and no extrasystoles were noted during several minutes of auscultation. The first and second heart sounds were normal and physiologic splitting of the second heart sound was noted. There were no murmurs, rubs, clicks, or gallops. Abdominal exam revealed normal bowel sounds. The abdomen was soft, non-tender, and without masses, organomegaly, or appreciable enlargement of the abdominal aorta. Examination of the extremities revealed easily palpable radial, femoral and pedal pulses. There was no cyanosis, clubbing or edema. Examination of the skin revealed no evidence of significant rashes, suspicious appearing nevi or other concerning lesions. Neurologically the patient is awake and alert and is no focal neurological deficit - Labs CBC & Chem 7: 02/16/18 06:39 02/16/18 06:39 Labs: Abnormal Lab Results - Last 24 Hours (Table) 02/15/18 02/15/18 02/15/18 Range/Units 12:10 17:15 20:58 WBC (3.8-10.6) k/uL Neutrophils # (1.3-7.7) k/uL Chloride (98-107) mmol/L BUN (7-17) mg/dL Creatinine (0.52-1.04) mg/dL POC Glucose (mg/dL) 222 H 264 H 230 H (75-99) mg/dL AST (14-36) U/L ALT (9-52) U/L Total Protein (6.3-8.2) g/dL Albumin (3.5-5.0) g/dL 02/16/18 02/16/18 02/16/18 Range/Units 05:41 06:39 06:39 WBC 23.3 H (3.8-10.6) k/uL Neutrophils # 19.1 H (1.3-7.7) k/uL Chloride 113 H (98-107) mmol/L BUN 32 H (7-17) mg/dL Creatinine 1.11 H (0.52-1.04) mg/dL POC Glucose (mg/dL) 126 H (75-99) mg/dL AST 43 H (14-36) U/L ALT 75 H (9-52) U/L Total Protein 6.1 L (6.3-8.2) g/dL Albumin 3.3 L (3.5-5.0) g/dL Microbiology - Last 24 Hours (Table) 02/14/18 18:30 Blood Culture - Preliminary Blood No Growth after 24 hours 02/13/18 11:08 Urine Culture - Final Urine,Catheterized Escherichia coli Assessment and Plan Plan: 1 acute sepsis with gram-negative bacillus secondary to a gram-negative urine tract infection and possibly right kidney pyelonephritis. CAT scan of the abdomen was noted and the patient has some nephrolithiasis and could've passed a stone on the right side knowing that there was edema around the right kidney in the right ureter. The gram-negative bacillus was cultured in the urine and the blood and the patient is currently on IV rocephin. Final blood and urine cultures were positive for E. 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 Increase activity as tolerated, she is hemodynamically stable. Continue GI and DVT prophylaxis. I performed a history & physical examination of the patient and discussed their management with my nurse practitioner, Zakia Estrada. I reviewed the nurse practitioner's note and agree with the documented findings and plan of care. Lung sounds are a few scattered rhonchi. The findings and the impression was discussed with the patient. I attest to the documentation by the nurse practitioner. Time with Patient: Less than 30
[2018-02-16 11:20] LABS: Glucose,Whole Blood 122 mg/dL (75-99)
[2018-02-16] MEDS ORDERED: amLODIPine 10 MG TAB PO SCH (11:30)
[2018-02-16 11:35] VITALS: BP 127/75; TEMP 98
--- NOTE | 2018-02-16 11:42 | P.PN ---
Subjective Progress Note Date: 02/16/18 This is a 62-year-old female who presented to the hospital with symptoms of weakness and fever with associated shortness of breath. She was found to be hypotensive and for this reason her beta ginny had been discontinued. Urinalysis was positive and patient is currently on antibiotics for same. Chest x-ray did not show any evidence of congestive heart failure. She is currently on oral Lasix, she was seen and examined this morning. Her only complaint this morning is of bilateral flank discomfort. Blood pressure this morning 164/70. We will resume her Norvasc to 10 mg daily today. Objective - Vital Signs Vital signs: Vital Signs Temp 98.1 F 02/16/18 08:00 Pulse 70 02/16/18 08:01 Resp 20 02/16/18 08:00 BP 126/65 02/16/18 08:00 Pulse Ox 92 L 02/16/18 08:00 Intake & Output 02/15/18 02/16/18 02/16/18 18:59 06:59 18:59 Intake Total 1590 360 Output Total 2000 Balance -410 360 Intake: IV 550 Sodium Chloride 0.9% 1, 450 000 ml @ 75 mls/hr IV . [id number] ERASMO Rx#:[id number] cefTRIAXone 2,000 mg In 100 Sodium Chloride 0.9% 100 ml @ 100 mls/hr IVPB Q24HR ERASMO Rx#:[id number] Oral 1040 360 Output: Urine 2000 Other: Voiding Method Bedside Commode # Voids 1 1 # Bowel Movements 1 - Exam PHYSICAL EXAMINATION: GENERAL: 62-year-old female in no acute distress at the time of my examination HEENT: Head is atraumatic, normocephalic. Pupils equal, round. Sclera anicteric. Conjunctiva are clear. Mucous membranes of the mouth are moist. Neck is supple. There is no elevated jugular venous pressure. No carotid bruit is heard. HEART EXAMINATION: Heart S1, S2 normal. No murmur or gallop heard. CHEST EXAMINATION: Lungs reveal scattered rhonchi throughout. ABDOMEN: Soft, bilateral flank pain . Bowel sounds are heard. No organomegaly noted]. EXTRMITIES:[ 2+ periheral pulses with trace evidence of peripheral edema and no calf tenderness noted]. NEUROLOIC [patient isawake, alert and oriented X3. . - Labs CBC & Chem 7: 10/08/18 06:39 02/16/18 06:39 Labs: Abnormal Lab Results - Last 24 Hours (Table) 02/15/18 02/15/18 02/15/18 Range/Units 12:10 17:15 20:58 WBC (3.8-10.6) k/uL Neutrophils # (1.3-7.7) k/uL Chloride (98-107) mmol/L BUN (7-17) mg/dL Creatinine (0.52-1.04) mg/dL POC Glucose (mg/dL) 222 H 264 H 230 H (75-99) mg/dL AST (14-36) U/L ALT (9-52) U/L Total Protein (6.3-8.2) g/dL Albumin (3.5-5.0) g/dL 02/16/18 02/16/18 02/16/18 Range/Units 05:41 06:39 06:39 WBC 23.3 H (3.8-10.6) k/uL Neutrophils # 19.1 H (1.3-7.7) k/uL Chloride 113 H (98-107) mmol/L BUN 32 H (7-17) mg/dL Creatinine 1.11 H (0.52-1.04) mg/dL POC Glucose (mg/dL) 126 H (75-99) mg/dL AST 43 H (14-36) U/L ALT 75 H (9-52) U/L Total Protein 6.1 L (6.3-8.2) g/dL Albumin 3.3 L (3.5-5.0) g/dL 02/16/18 Range/Units 11:09 WBC (3.8-10.6) k/uL Neutrophils # (1.3-7.7) k/uL Chloride (98-107) mmol/L BUN (7-17) mg/dL Creatinine (0.52-1.04) mg/dL POC Glucose (mg/dL) 122 H (75-99) mg/dL AST (14-36) U/L ALT (9-52) U/L Total Protein (6.3-8.2) g/dL Albumin (3.5-5.0) g/dL Microbiology - Last 24 Hours (Table) 02/14/18 18:30 Blood Culture - Preliminary Blood No Growth after 24 hours 02/13/18 11:08 Urine Culture - Final Urine,Catheterized Escherichia coli Assessment and Plan Plan: Assessment and plan: #1 Sepsis with UTI #2 Hypotension , likely secondary to #1 #3 History of CAD status post angioplasty #4 Diastolic heart failure #5 hypertension #6 hyperlipidemia Plan We will resume Norvasc 10 mg by mouth daily, continue the rest of the medications. DNP note has been reviewed, I agree with a documented findings and plan of care. Patient was seen and examined.
[2018-02-16 12:57] LABS: Hemoglobin A1C 7.4 % (4.0-6.0)
[2018-02-16 15:24] VITALS: PULSE 72
[2018-02-16 16:25] LABS: Glucose,Whole Blood 262 mg/dL (75-99)
--- NOTE | 2018-02-16 22:11 | DS ---
DISCHARGE SUMMARY DATE OF SERVICE: 02/16/2018 FINAL DIAGNOSES: 1. Acute febrile illness, possibly secondary to urinary tract infection. 2. Mild lactic acidosis. 3. Chronic obstructive pulmonary disease acute exacerbation with acute purulent tracheobronchitis. 4. Mild hypotension recovered with fluid resuscitation. 5. Chronic obstructive pulmonary disease acute exacerbation. 6. Diabetes type 2. 7. Hypertension. 8. Hyperlipidemia. 9. History of coronary artery disease. 10.Myocardial infarction. 11.History of gastric ulcer. 12.History of multiple transient ischemic attack. 13.History of [employer] aneurysm. 14.History of pyelonephritis and nephrolithiasis. 15.History of chronic back pain. DISCHARGE DISPOSITION: The patient is being discharged in stable condition with guarded prognosis. HISTORY OF PRESENT ILLNESS: This 62-year-old woman with past medical history of multiple medical problems admitted with COPD acute exacerbation and possible UTI and acute bronchitis was treated in conjunction with Dr. Guajardo. The patient was given bronchodilators and steroids. Patient improved significantly. Patient is keen on going home. On exam, vital signs are stable. Cardiovascular System: S1, S2. Respiration: A few scattered rhonchi. DISCHARGE ADVICE AND MEDICATIONS: 1. Discharge diet is cardiac diet. 2. Activity limited until followup. 3. Follow up with Dr. Jarrett in 2-3 days. 4. Follow up with Dr. Guajardo as advised. 5. Follow up with Dr. Roberts p.r.n. MEDICATIONS: Medications are, home medications are as follows: 1. Norvasc 10 mg q.h.s. 2. Cetirizine 10 mg p.o. daily. 3. Plavix 75 mg. 4. Lasix 20 mg. 5. Neurontin 600 mg p.o. t.i.d. 6. Amaryl 1 mg p.o. a.c. breakfast. 7. Rosharon 10 mg t.i.d. p.r.n. 8. Insulin 20 units subcu p.c. supper . 9. Imdur 30 mg p.o. q.a.m. 10.Robaxin 75 mg p.o. b.i.d. 11.Nitrostat 0.4 sublingual p.r.n. 12.K-Dur 10 mEq p.o. daily. 13.Zoloft 100 mg p.o. daily. 14.Kenalog cream topical application. 15.Symbicort 160/4.5 2 puffs b.i.d. 16.DuoNeb q.i.d. and p.r.n. 17.Levaquin 500 mg p.o. daily. 18.Habitrol 14 daily. 19.Prednisone taper that will be 40 mg daily for 3 days, 30 for 3 days, 20 for three days, 10 for three days and then discontinue. Once again the patient will be discharged in stable condition with guarded prognosis. MMLEONARDL / IJN: [id number] / MTDD
--- NOTE | 2018-02-18 06:31 | CDI ---
Pt Name: Starr James CONFIDENTIAL MR#: [id number] Adm Date: 02/13/2018 10:35:00 AM Printed:02/18/2018 Physician Documentation Request Page 1 of 1 ICD-10-CM Specific Physicians Documentation Request This Form is Not a Permanent Document in the Medical Record h/o myocardial infarction in the past. no acute mi. Pt Name: Starr James MR #: [id number] Payor: MEDICARE Unit/Bed: [id number] Adm Date: 02/13/2018 10:35:00 AM Reviewer: Danette Zhang Ext. If you have a question about this query, please contact Bettye Carnes [employer] at [phone] between 8am and 5pm. Query Date: 02/18/2018 6:16:25 AM By submitting this query, we are merely seeking further clarification of documentation to accurately reflect all conditions that you are monitoring, evaluating, treating or that extend the hospitalization or utilize additional resources of care. Please utilize your independent clinical judgment when addressing the question(s) below. Dear Doctor Ant CORTEZ MD, The patients Clinical Indicators include: See below Myocardial Infarction is documented in the Discharge Summary, but not throughout the chart. Please clarify if patient had an acute myocardial infarction and if so, please specify type.. Risk factors: CAD, previous stent, HTN, CHF, HLD, current sepsis Troponins: .021, .031, .018 Non-ST elevation Type 2 OH (due to demand ischemia or secondary to ischemic imbalance) Type 3 Type 4 (please specify 4a, 4b, or 4c) Type 5 ST elevation (STEMI) (type 1) Clinically unable to determine OH Ruled out Personal History of OH PLEASE DOCUMENT ANY ADDITIONAL DIAGNOSES AND/OR SPECIFICITY IN THE PROGRESS NOTES AND/OR DISCHARGE SUMMARY. MTDD
== END 2018-02-16 17:10 | disposition home or self-care (01) | DRG 872 ==
LOC: EC 08:41 → 4MS4W 10:35 → 6SEL 22:26
PROVIDERS: ADMIT Hospitalist; ATTEND Hospitalist
DX: A41.51 Sepsis due to Escherichia coli [E. coli] (principal); N39.0 Urinary tract infection, site not specified; E87.2 Acidosis; I50.30 Unspecified diastolic (congestive) heart failure; J44.0 Chronic obstructive pulmonary disease with (acute) lower respiratory infection; J44.1 Chronic obstructive pulmonary disease with (acute) exacerbation; Z68.42 Body mass index [BMI] 45.0-49.9, adult; E11.9 Type 2 diabetes mellitus without complications; E66.01 Morbid (severe) obesity due to excess calories; E78.5 Hyperlipidemia, unspecified; F17.200 Nicotine dependence, unspecified, uncomplicated; F32.9 Major depressive disorder, single episode, unspecified; F41.9 Anxiety disorder, unspecified; I11.0 Hypertensive heart disease with heart failure; I25.10 Atherosclerotic heart disease of native coronary artery without angina pectoris; I25.2 Old myocardial infarction; Z87.01 Personal history of pneumonia (recurrent); K21.9 Gastro-esophageal reflux disease without esophagitis; Z79.02 Long term (current) use of antithrombotics/antiplatelets; Z79.4 Long term (current) use of insulin; Z80.52 Family history of malignant neoplasm of bladder; Z86.73 Personal history of transient ischemic attack (TIA), and cerebral infarction without residual deficits; Z87.11 Personal history of peptic ulcer disease; Z87.440 Personal history of urinary (tract) infections; Z87.442 Personal history of urinary calculi; Z95.5 Presence of coronary angioplasty implant and graft; Z86.79 Personal history of other diseases of the circulatory system; M54.9 Dorsalgia, unspecified; G89.29 Other chronic pain; Z84.1 Family history of disorders of kidney and ureter; Z88.5 Allergy status to narcotic agent; Z88.0 Allergy status to penicillin; Z88.8 Allergy status to other drugs, medicaments and biological substances; Z79.899 Other long term (current) drug therapy
CPT/HCPCS: 36415; 71046; 74176; 80053; 81001; 82550; 82553; 83036; 83605; 83735; 83880; 84484; 85025; 85610; 85730; 87040; 87077; 87086; 87186; 87502; 90686; 93005; 93306; 94640; 94760; 96360; 96361; 99285

== ENCOUNTER 2018-02-26 11:50 | Inpatient (IN) | payer MEDICARE, OTHER ==
[2018-02-26 12:39] LABS: Basophils # (A) 0.1 k/uL (0-0.2); Basophils % (A) 0 %; Eosinophils # (A) 0.2 k/uL (0-0.7); Eosinophils % (A) 1 %; HCT 44.3 % (34.0-46.0); HGB 14.2 gm/dL (11.4-16.0); Lymphocytes % (A) 12 %; MCH 27.4 pg (25.0-35.0); MCHC 32.1 g/dL (31.0-37.0); MCV 85.6 fL (80.0-100.0); Mean Platelet Volume 7.8; Monocytes # (A) 0.5 k/uL (0-1.0); Monocytes % (A) 3 %; Neutrophils # (A) 13.3 k/uL (1.3-7.7); Neutrophils % (A) 83 %; Platelet Count 273 k/uL (150-450); RBC 5.17 m/uL (3.80-5.40); RDW 14.8 % (11.5-15.5); WBC 16.1 k/uL (3.8-10.6)
[2018-02-26 12:53] LABS: Albumin 3.8 g/dL (3.5-5.0); Calcium 9.4 mg/dL (8.4-10.2); Total Bilirubin 0.5 mg/dL (0.2-1.3); Total Protein 6.7 g/dL (6.3-8.2)
[2018-02-26 12:54] LABS: Potassium 4.6 mmol/L (3.5-5.1)
[2018-02-26] MEDS ORDERED: SODIUM CHLORIDE 0.9% 500 ML 500 ML IV ONE (13:39)
[2018-02-26] MEDS ORDERED: LEVOFLOXACIN 500MG-D5W PMX 500 MG in DEXTROSE/WATER 1 100ML.BAG IVPB STA (13:46)
--- NOTE | 2018-02-26 13:59 | XR ---
EXAMINATION TYPE: XR chest 2V DATE OF EXAM: 02/26/2018 COMPARISON: 02/14/2018 HISTORY: 62-year-old female shortness of breath, difficulty breathing, pain TECHNIQUE: PA and lateral views FINDINGS: Heart borderline enlarged. Aorta and pulmonary vasculature within normal limits. Spinal stimulator re cent along the mid thoracic spinal canal. Diffuse interstitial changes and peribronchial cuffing. No consolidation or pleural effusion seen. IMPRESSION: Similar diffuse interstitial changes and borderline heart size. Correlate for possible etiologies suc h as bronchitis, chronic asthma, persistent pneumonitis, or atypical pneumonias.
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
[2018-02-26 14:10] LABS: Appearance,Urine Clear (Clear); Bilirubin,Urine Negative (Negative); Blood,Urine Negative (Negative); Color,Urine Yellow; Glucose,Urine (UA) 4+ (Negative); Ketones,Urine Negative (Negative); Leukocyte Esterase,Urine Negative (Negative); Nitrite,Urine Negative (Negative); PH, Urine 5.5 (5.0-8.0); Protein,Urine Negative (Negative); Specific Gravity,Urine 1.013 (1.001-1.035); Urobilinogen,Urine <2.0 mg/dL (<2.0)
[2018-02-26] MEDS: SODIUM CHLORIDE 0.9% 1,000 ML IV SCH (14:12)
[2018-02-26] MEDS ORDERED: ACETAMINOPHEN TAB 325 MG TAB PO PRN (14:43)
[2018-02-26] MEDS ORDERED: NALOXONE 0.4 MG/ML 1 ML VIAL IV PRN (14:43)
[2018-02-26] MEDS ORDERED: NITROGLYCERIN SL TABS 0.4 MG TAB SUBLINGUAL PRN (19:26)
[2018-02-26] MEDS ORDERED: METHOCARBAMOL 750 MG TAB PO PRN (19:26)
[2018-02-26] MEDS ORDERED: IPRATROPIUM-ALBUTEROL 3 ML NEB INHALATION PRN (19:34)
[2018-02-26] MEDS: SYMBICORT 160-4.5 MCG INHALER INHALATION SCH (19:58)
[2018-02-26] MEDS: IPRATROPIUM-ALBUTEROL 3 ML NEB INHALATION SCH (19:58)
--- NOTE | 2018-02-26 20:09 | HP ---
HISTORY AND PHYSICAL CHIEF COMPLAINTS: Shortness of breath and high white count. HISTORY OF PRESENT ILLNESS: This 62-year-old woman with a past medical history of multiple medical problems including COPD, history of diabetes, hypertension, hyperlipidemia, history of CAD, history of myocardial infarction being followed by Dr. Jarrett in the outpatient setting recently admitted to [facility] with fever, lactic acidosis, COPD. Acute purulent tracheobronchitis and UTI was suspected and the patient was treated with antibiotics. Patient improved significantly. Patient was sent home. The culture showed E coli, which was poly sensitive. There is no history of any fever, rigors. No headache, loss of consciousness, seizures. Currently the patient is noted to have elevated white count. The patient also had shortness of breath and the home nurse referred her to Dr. Jarrett also. The patient was constipated also and because of increased white count and other medical issues, patient was admitted for further evaluation and treatment. There is no dysuria at this time. The current labs indicated WBC 16.1 and plasma lactic acid was 2.2. Creatinine is 1.1. PAST MEDICAL HISTORY: History of recent pneumonia, history of UTI, chest pain, diabetes, GERD, hypertension, hyperlipidemia, history of pneumonia, history of DJD, history of back surgery, CAD stent. MEDICATIONS: Prior to admission include home medication are: 1. Prednisone 10 mg p.r.n. 2. Norvasc 10 mg p.o. q.h.s. 3. Triamcinolone 1 application b.i.d. 4. Zoloft 100 mg p.o. daily. 5. K-Dur 10 mEq p.o. daily. 6. Nitrostat 0.4 sublingual p.r.n. 7. Habitrol 14 daily. 8. Robaxin 750 p.o. b.i.d. p.r.n. 9. Levaquin 500 mg p.o. b.i.d. 10.Imdur 30 mg q.a.m. 11.Toujeo 20 units subcu b.i.d. 12.DuoNeb q.i.d. p.r.n. 13.Belva 10 mg t.i.d. p.r.n. 14.Amaryl 4 mg p.o. 15.Neurontin 600 mg p.o. t.i.d. 16.Lasix 20 mg p.o. 17.Plavix 75 mg. 18.Cetirizine 10 mg. 19.Symbicort 160/4.5 two puffs b.i.d. ALLERGIES: PENICILLIN, PHENOBARBITAL, KLOR-CON, DIAZEPAM, COMPAZINE. PHYSICAL EXAM: Patient is alert, oriented x3. The pulse is 62, blood pressure 150/88, respirations 19, temperature 97.6, pulse ox 98% on room air. HEENT: Conjunctivae normal. Oral mucosa moist. Neck is no jugular venous distention. No carotid bruit. No lymph node enlargement. CARDIOVASCULAR: S1, S2. RESPIRATORY: Breath sounds diminished in the bases. A few scattered rhonchi and crackles. ABDOMEN: Soft, obese, nontender. LEGS: No edema, no swelling. NERVOUS SYSTEM: No focal deficits. LABS: WBC 16, hemoglobin 14.8, sodium 140, potassium 4.6, creatinine is 1.11. Lactic acid 2.2. ASSESSMENT: 1. Elevated white count with possible acute bronchitis. 2. History of recent chronic obstructive pulmonary disease. 3. History of recent urinary tract infection with sepsis. 4. Elevated lactic acid, possible sepsis present on admission. 5. Diabetes type 2. 6. Hypertension. 7. Hyperlipidemia. 8. History of coronary artery disease. 9. History of myocardial infarction. 10.History of gastric ulcer. 11.History of multiple transient ischemic attacks. 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 13.History of pyelonephritis and nephrolithiasis. 14.History of chronic back pain. 15.Obesity with body mass index of 47.2. RECOMMENDATIONS AND DISCUSSION: This 62-year-old woman who presented with multiple complex medical issues, we will monitor the patient closely. Continue the current management and symptomatic treatment. Initiate empiric antibiotics. Cultures. Infectious disease evaluation. Resume the home medications. Guarded prognosis because of multiple complex medical issues. Further recommendations to follow. Copy of dictation forwarded to Dr. Jarrett who is the primary physician. MMODL / IJN: [id number] /
[2018-02-26] MEDS ORDERED: SENNOSIDES 8.6 MG TAB PO PRN (20:29)
[2018-02-26] MEDS: GLIMEPIRIDE 1 MG TAB PO SCH (21:06)
[2018-02-26] MEDS: HYDROcodone/APAP 10-325MG 1 EACH TAB PO PRN (21:07)
[2018-02-26] MEDS: GABAPENTIN 300 MG CAP PO SCH (21:07)
[2018-02-26] MEDS: ALPRAZolam 0.25 MG TAB PO PRN (21:07)
[2018-02-26] MEDS: INSULIN DETEMIR 100 UNIT/ML 10 ML VIAL SQ SCH (21:09)
[2018-02-26] MEDS: HEPARIN SODIUM,PORCINE 5,000 UNIT/ML 1 ML VIAL SQ SCH (21:11)
[2018-02-26] MEDS: SENNOSIDES 8.6 MG TAB PO SCH (21:15)
[2018-02-26] MEDS: TRIAMCINOLONE 0.1% CREAM 80 GM TUBE TOPICAL SCH (21:16)
[2018-02-26] MEDS: NYSTATIN 100,000 UNIT/GM OINT 30 GM TUBE TOPICAL SCH (21:16)
[2018-02-26] MEDS: INSULIN ASPART 100 UNIT/ML 1 ML 10 ML VIAL SQ SCH (21:24)
[2018-02-26 21:30] LABS: Glucose,Whole Blood 78 mg/dL (75-99)
[2018-02-26] MEDS ORDERED: NICOTINE 21MG/24HR PATCH TRANSDERM SCH (22:15)
[2018-02-26] MEDS: amLODIPine 10 MG TAB PO SCH (22:57)
[2018-02-27 04:06] LABS: Hemoglobin A1C 7.9 % (4.0-6.0)
[2018-02-27] MEDS: SODIUM CHLORIDE 0.9% 1,000 ML IV SCH ×2 (04:37→14:01)
[2018-02-27 07:06] LABS: Glucose,Whole Blood 81 mg/dL (75-99)
[2018-02-27] MEDS: LORATADINE 10 MG TAB PO SCH (08:28)
[2018-02-27] MEDS: GABAPENTIN 300 MG CAP PO SCH ×3 (08:28→22:40)
[2018-02-27] MEDS: GLIMEPIRIDE 1 MG TAB PO SCH (08:28)
[2018-02-27] MEDS: SENNOSIDES 8.6 MG TAB PO SCH (08:28)
[2018-02-27] MEDS: POTASSIUM CHLORIDE ER 10 MEQ TAB.ER.PRT PO SCH (08:28)
[2018-02-27] MEDS: FUROSEMIDE 20 MG TAB PO SCH (08:28)
[2018-02-27] MEDS: CLOPIDOGREL 75 MG TAB PO SCH (08:28)
[2018-02-27] MEDS: ISOSORBIDE MONONITRATE ER 30 MG TAB.ER.24H PO SCH (08:28)
[2018-02-27] MEDS: HEPARIN SODIUM,PORCINE 5,000 UNIT/ML 1 ML VIAL SQ SCH ×2 (08:29→22:42)
[2018-02-27] MEDS: SERTRALINE 100 MG TAB PO SCH (08:29)
[2018-02-27] MEDS: NICOTINE 14MG/24HR PATCH TRANSDERM SCH (08:29)
[2018-02-27] MEDS: INSULIN ASPART 100 UNIT/ML 1 ML 10 ML VIAL SQ SCH ×4 (08:30→22:46)
[2018-02-27 09:31] LABS: Albumin 3.3 g/dL (3.5-5.0); Basophils # (A) 0.1 k/uL (0-0.2); Basophils % (A) 1 %; Calcium 8.9 mg/dL (8.4-10.2); Eosinophils # (A) 0.1 k/uL (0-0.7); Eosinophils % (A) 1 %; HCT 40.8 % (34.0-46.0); HGB 13.1 gm/dL (11.4-16.0); Lymphocytes # (A) 4.1 k/uL (1.0-4.8); Lymphocytes % (A) 32 %; MCH 27.9 pg (25.0-35.0); Mean Platelet Volume 7.4; Monocytes # (A) 0.7 k/uL (0-1.0); Monocytes % (A) 6 %; Neutrophils # (A) 7.6 k/uL (1.3-7.7); Neutrophils % (A) 60 %; Platelet Count 212 k/uL (150-450); Potassium 4.2 mmol/L (3.5-5.1); RBC 4.69 m/uL (3.80-5.40); RDW 14.5 % (11.5-15.5); Total Bilirubin 0.5 mg/dL (0.2-1.3); WBC 12.8 k/uL (3.8-10.6)
[2018-02-27] MEDS: IPRATROPIUM-ALBUTEROL 3 ML NEB INHALATION SCH ×4 (10:29→20:49)
[2018-02-27] MEDS: SYMBICORT 160-4.5 MCG INHALER INHALATION SCH ×2 (10:30→20:47)
[2018-02-27 11:51] LABS: Glucose,Whole Blood 131 mg/dL (75-99)
[2018-02-27] MEDS ORDERED: LEVOFLOXACIN 500MG-D5W PMX 500 MG in DEXTROSE/WATER 1 100ML.BAG IVPB SCH (14:00)
[2018-02-27] MEDS: NYSTATIN 100,000 UNIT/GM OINT 30 GM TUBE TOPICAL SCH ×2 (14:01→22:43)
[2018-02-27] MEDS: TRIAMCINOLONE 0.1% CREAM 80 GM TUBE TOPICAL SCH ×2 (14:01→22:42)
[2018-02-27] MEDS: predniSONE 20 MG TAB PO SCH (16:22)
[2018-02-27] MEDS: HYDROcodone/APAP 10-325MG 1 EACH TAB PO PRN (16:53)
[2018-02-27 17:09] LABS: Glucose,Whole Blood 180 mg/dL (75-99)
[2018-02-27] MEDS: INSULIN DETEMIR 100 UNIT/ML 10 ML VIAL SQ SCH (18:44)
--- NOTE | 2018-02-27 19:55 | PN ---
PROGRESS NOTE DATE OF SERVICE: 02/27/2018 This 62-year-old woman was admitted with significant fever and also bronchitis also had rash in the back, possibly herpes simplex. No chest pain. No palpitations. No fever. PHYSICAL EXAM: Alert and oriented x3. Pulse 64. Blood pressure 97/50, respiration 18, temperature 98.4, pulse ox 94% on room air. HEENT: Conjunctivae normal. Oral mucosa moist. NECK is no jugular venous distention. No carotid bruit. No lymph node enlargement. CARDIOVASCULAR: S1, S2. RESPIRATORY: Breath sounds diminished in the bases. A few rhonchi. No crackles. ABDOMEN: Soft, nontender. Legs are no edema. No swelling. Back: Examination of the back, maculopapular rash also present. NERVOUS SYSTEM: No focal deficits. Some ulcerations also present. LABS: WBC 12.8, sodium 142, potassium 4.2, creatinine 1.05. ASSESSMENT: 1. Elevated white count with possible acute bronchitis. 2. Possible herpes simplex lower sacral area. 3. History of recent chronic obstructive pulmonary disease. 4. History of recent urinary tract infection with sepsis. 5. Elevated lactic acid, possible sepsis present on admission. 6. Diabetes type 2. 7. Hypertension. 8. Hyperlipidemia. 9. History of coronary artery disease. 10.History of myocardial infarction. 11.History of gastric ulcer. 12.History of multiple transient ischemic attacks. 13.History of coronary artery disease. 15.History of pyelonephritis, nephrolithiasis. 16.History of chronic back pain. 17.Obesity with body mass index 47.5. RECOMMENDATIONS AND DISCUSSION: Recommend to continue current medications, management and symptomatic treatment. Otherwise, I recommend continue current medications and Valtrex. Infectious disease evaluation. Guarded prognosis. Further recommendations to follow. MMODL / IJN: [id number] / MTDD
[2018-02-27] MEDS ORDERED: valACYclovir 500 MG TAB PO SCH (21:00)
[2018-02-27 21:16] LABS: Glucose,Whole Blood 232 mg/dL (75-99)
--- NOTE | 2018-02-27 21:25 | CONS ---
CONSULTATION DATE OF SERVICE: 02/27/2018. REASON FOR CONSULTATION: Leukocytosis and infection. HISTORY OF PRESENT ILLNESS: The patient is a 62-year-old female who was recently admitted at this facility. The patient at that time did have evidence of a right-sided E coli pyelonephritis. The patient did have E coli bacteremia with positive urine culture. She did have CT of abdomen and pelvis which did show mild right-sided hydronephrosis and some perinephric edema. The patient was discharged home on oral Levaquin. Apparently the patient did have a follow-up visit with her primary care physician who noted that her white count was still elevated with concern for persistent infection, the patient has been advised to go back to the hospital. The patient denies having any fever or any chills. No burning or frequency of urine. Denies any flank pain. No nausea, vomiting, or any significant cough. No chest pain. No abdominal pain and no diarrhea. The patient subsequently has been evaluated by the ER physician. On arrival to the ER, the patient has been afebrile. The patient's urine was negative. Blood culture has been obtained. She was started on IV Levaquin. Infectious Disease was consulted for further recommendation regarding antibiotic therapy. The patient also noticed to have rash on her bilateral gluteal area with formation with concern for possible shingles. She was also started on Valtrex. The patient denies having any burning pain to these lesion areas. There was not any drainage from it. No surrounding swelling or any redness. REVIEW OF SYSTEMS: CONSTITUTIONAL: Positive for weakness. No fever. EYES: No complaint. ENT: No complaint. RESPIRATORY: Occasional cough. CARDIOVASCULAR: No complaint. GENITOURINARY: As per HPI. GASTROINTESTINAL: No complaint. MUSCULOSKELETAL: No complaint. INTEGUMENTARY: As per HPI. PSYCHOLOGICAL: No complaint. ENDOCRINE: No complaint. NEUROLOGIC: No complaint. PAST MEDICAL HISTORY: CVA, TIA, diabetes mellitus, gastroesophageal reflux disease, hypertension, hyperlipidemia, SD, osteoarthritis, pneumonia, E. coli bacteremia with right-sided pyelonephritis, chronic back pain. PAST SURGICAL HISTORY: Back surgery, cholecystectomy, PTCA with stent, brain aneurysm with colon surgery 2009, EGD and colonoscopy. SOCIAL HISTORY: The patient is currently everyday smoker. He denies drinking or drug use. FAMILY HISTORY: Father from bladder cancer. Mother from kidney failure at age of 48. ALLERGIES: PENICILLIN with no anaphylaxis, PHENOBARBITAL, CODEINE, DIAZEPAM, CHLORPHENESIN. MEDICATIONS: Includes the patient is currently on Valtrex 1 g twice a day. She is on Kenalog, Zoloft, Senokot, prednisone 20 mg daily, Mycostatin ointment, Nitrostat, nicotine patch, Levaquin, Imdur, Levemir, NovoLog, Amaryl, Neurontin, Lasix, Plavix, Norvasc, Xanax, DuoNeb, Clear and Tylenol. EXAMINATION: Blood pressure is 97/53 with a pulse of 54. Temperature 94.4. She is 94% on room air. General description is a middle-aged female lying in bed in no distress. No tachypnea or accessory muscle for respiration use. HEENT: Shows no pallor or scleral icterus. Oral mucosa is dry. No pharyngeal erythema or thrush. NECK: Trachea central. No thyromegaly. LUNGS: Unlabored breathing. Clear to auscultation. No wheeze or crackle. HEART: S1, S2. Regular rate and rhythm. ABDOMEN: Soft. No tenderness. No guarding or rigidity. EXTREMITIES: No edema feet. EXAMINATION OF THE SKIN: The patient did have some skin breakdown on the bilateral gluteal area with no evidence of any slough tissue, surrounding cellulitis or formation. NEUROLOGICAL: Patient is awake, alert, oriented. Mood and affect normal. LABS: Hemoglobin 13.1, white count 12.8, admission white count was 16.1 with a BUN of 24, creatinine 1.05. ALT was slightly elevated at 76. Urine is negative. DIAGNOSTIC IMPRESSION AND PLAN: 1. Patient admitted to the hospital with leukocytosis in a patient who has been recently treated at this facility for an E coli bacteremia secondary to urinary source. Patient during that admission did have a CT of the abdomen and pelvis that was suggestive of a right-sided mild hydronephrosis with perinephric edema, likely representing a partially treated pyelonephritis. The other source could be possible gallbladder disease as the patient noticed to have slightly elevated ALT. 2. Patient with bilateral gluteal lesions, rash, skin breakdown not suggestive of shingles as it is present on both sides of the midline with no evidence of any cellulitis. 3. Patient did have a PENICILLIN allergy without anaphylaxis. PLAN: 1. Discontinue Levaquin. 2. Start the patient on Rocephin 1 g IV piggyback daily. 3. Obtain ultrasound of the kidney and the bladder area. 4. We will obtain of hepatitis panel. 5. We will follow up on clinical condition and will further adjust medication if needed. Thank you for this consultation. Will follow the patient along with you. HAIM / AMAN: [id number] /
[2018-02-27] MEDS: amLODIPine 10 MG TAB PO SCH (22:39)
[2018-02-27] MEDS: ALPRAZolam 0.25 MG TAB PO PRN (22:54)
[2018-02-28] MEDS: SODIUM CHLORIDE 0.9% 1,000 ML IV SCH ×2 (05:53→19:58)
[2018-02-28] MEDS: SYMBICORT 160-4.5 MCG INHALER INHALATION SCH ×2 (07:27→19:28)
[2018-02-28] MEDS: IPRATROPIUM-ALBUTEROL 3 ML NEB INHALATION SCH ×4 (07:27→19:28)
[2018-02-28 07:36] LABS: Glucose,Whole Blood 122 mg/dL (75-99)
--- NOTE | 2018-02-28 08:46 | US ---
EXAMINATION TYPE: US abdomen complete DATE OF EXAM: 02/28/2018 COMPARISON: Previous study dated 01/27/2015. CLINICAL HISTORY: Fever , right sided pyelo , elevated LFT. Pain per patient. GB removed about 8 mon ths ago. EXAM MEASUREMENTS: Liver Length: 14.9 cm CHD: 0.4 cm Spleen: 11.9 cm Right Kidney: 11.3 x 4.9 x 4.9 cm Left Kidney: 11.3 x 4.7 x 4.8 cm Pancreas: Appears echogenic in appearance. Tail not well visualized. Liver: wnl Gallbladder: Surgically absent Evidence for sonographic Sullivan's sign: neg CBD: Obscured by overlying bowel gas CHD: wnl Spleen: wnl Right Kidney: Dromedary hump. Left Kidney: wnl Upper IVC: wnl Abd Aorta: atherosclerotic changes seen Limited views of the pancreas are unremarkable. The liver is normal in size without biliary dilatation. The gallbladder is been removed. The distal common hepatic duct measures 4 mm. Both kidneys are unremarkable. The spleen is normal in size. Visualized portions of aorta and IVC are unremarkable. IMPRESSION: NO ACUTE INTRA-ABDOMINAL ABNORMALITY.
[2018-02-28 08:57] LABS: Calcium 9.4 mg/dL (8.4-10.2); Potassium 4.2 mmol/L (3.5-5.1)
[2018-02-28] MEDS: ISOSORBIDE MONONITRATE ER 30 MG TAB.ER.24H PO SCH (09:30)
[2018-02-28] MEDS: predniSONE 20 MG TAB PO SCH (09:30)
[2018-02-28] MEDS: CLOPIDOGREL 75 MG TAB PO SCH (09:30)
[2018-02-28] MEDS: GLIMEPIRIDE 1 MG TAB PO SCH (09:30)
[2018-02-28] MEDS: GABAPENTIN 300 MG CAP PO SCH ×3 (09:30→20:03)
[2018-02-28] MEDS: POTASSIUM CHLORIDE ER 10 MEQ TAB.ER.PRT PO SCH (09:30)
[2018-02-28] MEDS: NICOTINE 14MG/24HR PATCH TRANSDERM SCH (09:30)
[2018-02-28] MEDS: FUROSEMIDE 20 MG TAB PO SCH (09:30)
[2018-02-28] MEDS: SENNOSIDES 8.6 MG TAB PO SCH (09:30)
[2018-02-28] MEDS: SERTRALINE 100 MG TAB PO SCH (09:30)
[2018-02-28] MEDS: LORATADINE 10 MG TAB PO SCH (09:30)
[2018-02-28] MEDS: HEPARIN SODIUM,PORCINE 5,000 UNIT/ML 1 ML VIAL SQ SCH ×2 (09:30→20:04)
[2018-02-28] MEDS: INSULIN ASPART 100 UNIT/ML 1 ML 10 ML VIAL SQ SCH ×4 (09:31→20:14)
[2018-02-28] MEDS: HYDROcodone/APAP 10-325MG 1 EACH TAB PO PRN ×2 (09:51→15:44)
[2018-02-28 12:18] LABS: Glucose,Whole Blood 151 mg/dL (75-99)
[2018-02-28] MEDS: TRIAMCINOLONE 0.1% CREAM 80 GM TUBE TOPICAL SCH ×2 (13:11→20:03)
[2018-02-28] MEDS: NYSTATIN 100,000 UNIT/GM OINT 30 GM TUBE TOPICAL SCH ×2 (13:11→20:03)
[2018-02-28 17:10] LABS: Hepatitis A Ab, Total Non-Reactive (Non-Reactive); Hepatitis C IgG Antibody Non-Reactive (Non-Reactive)
[2018-02-28 17:26] LABS: Glucose,Whole Blood 321 mg/dL (75-99)
[2018-02-28] MEDS: amLODIPine 10 MG TAB PO SCH (20:03)
[2018-02-28] MEDS: INSULIN DETEMIR 100 UNIT/ML 10 ML VIAL SQ SCH (20:13)
[2018-02-28 20:23] LABS: Glucose,Whole Blood 222 mg/dL (75-99)
[2018-02-28 21:04] LABS: Glucose,Whole Blood 148 mg/dL (75-99)
--- NOTE | 2018-02-28 21:23 | PN ---
PROGRESS NOTE DATE OF SERVICE: 02/28/2018 This 62-year-old woman was admitted with elevated WBC, possible acute bronchitis and as well as cellulitis infection of the sacral area. No chest pain. No palpitations. No fever. EXAM: Alert and oriented x3. The pulse is 57, blood pressure 115/70, respirations 16, temperature 98.4, pulse ox 98% on room air. HEENT: Conjunctivae normal. Oral mucosa moist. Neck is no jugular venous distention. No carotid bruit. No lymph node enlargement. CARDIOVASCULAR: S1, S2. RESPIRATORY: Breath sounds diminished in the bases. No rhonchi. ABDOMEN: Soft. Nontender. NERVOUS SYSTEM: No focal deficits. SKIN: Lesions present on the back. LABS: Creatinine 1.07. ASSESSMENT: 1. Elevated WBC with possible acute tracheobronchitis. 2. Acute cellulitis in the sacral area rule out herpes simplex. 3. History of recent chronic obstructive pulmonary disease. 4. History of recent urinary tract infection with sepsis. 5. Elevated lactic acid, possible sepsis present on admission. 6. Diabetes mellitus type 2. 7. Hypertension. 8. Hyperlipidemia. 9. History of coronary artery disease. 10.History of myocardial infarction. 11.History gastric ulcer. 12.History of multiple transient ischemic attacks. 13.History of coronary artery disease. 14.History of pyelonephritis, nephrolithiasis. 15.History of chronic back pain. 16.Obesity with body mass index of 47.5. RECOMMENDATIONS AND DISCUSSION: I recommend to continue current management and symptomatic treatment. At this time I recommend continue to monitor. Otherwise follow the cultures. Closely follow with Infectious Disease. Guarded prognosis. Further recommendations to follow. MMODL / IJN: [id number] /
[2018-02-28] MEDS: ALPRAZolam 0.25 MG TAB PO PRN (22:18)
[2018-03-01 07:38] LABS: Glucose,Whole Blood 79 mg/dL (75-99)
[2018-03-01] MEDS: IPRATROPIUM-ALBUTEROL 3 ML NEB INHALATION SCH ×4 (07:40→19:31)
[2018-03-01] MEDS: SYMBICORT 160-4.5 MCG INHALER INHALATION SCH ×2 (07:40→19:31)
[2018-03-01] MEDS: INSULIN ASPART 100 UNIT/ML 1 ML 10 ML VIAL SQ SCH ×4 (07:53→20:49)
[2018-03-01] MEDS: NICOTINE 14MG/24HR PATCH TRANSDERM SCH (09:04)
[2018-03-01] MEDS: CLOPIDOGREL 75 MG TAB PO SCH (09:04)
[2018-03-01] MEDS: SODIUM CHLORIDE 0.9% 1,000 ML IV SCH (09:04)
[2018-03-01] MEDS: GLIMEPIRIDE 1 MG TAB PO SCH (09:04)
[2018-03-01] MEDS: HEPARIN SODIUM,PORCINE 5,000 UNIT/ML 1 ML VIAL SQ SCH ×2 (09:05→20:43)
[2018-03-01] MEDS: GABAPENTIN 300 MG CAP PO SCH ×3 (09:05→20:43)
[2018-03-01] MEDS: LORATADINE 10 MG TAB PO SCH (09:06)
[2018-03-01] MEDS: NYSTATIN 100,000 UNIT/GM OINT 30 GM TUBE TOPICAL SCH ×2 (09:06→20:43)
[2018-03-01] MEDS: predniSONE 20 MG TAB PO SCH (09:06)
[2018-03-01] MEDS: ISOSORBIDE MONONITRATE ER 30 MG TAB.ER.24H PO SCH (09:06)
[2018-03-01] MEDS: SERTRALINE 100 MG TAB PO SCH (09:06)
[2018-03-01] MEDS: POTASSIUM CHLORIDE ER 10 MEQ TAB.ER.PRT PO SCH (09:06)
[2018-03-01] MEDS: SENNOSIDES 8.6 MG TAB PO SCH (09:06)
[2018-03-01] MEDS: TRIAMCINOLONE 0.1% CREAM 80 GM TUBE TOPICAL SCH ×2 (09:06→20:43)
[2018-03-01] MEDS: HYDROcodone/APAP 10-325MG 1 EACH TAB PO PRN ×2 (09:07→20:43)
[2018-03-01 10:07] LABS: Basophils % (A) 0 %; Eosinophils # (A) 0.2 k/uL (0-0.7); Eosinophils % (A) 2 %; HCT 38.2 % (34.0-46.0); HGB 12.1 gm/dL (11.4-16.0); Lymphocytes # (A) 2.7 k/uL (1.0-4.8); Lymphocytes % (A) 24 %; MCH 27.4 pg (25.0-35.0); MCHC 31.7 g/dL (31.0-37.0); MCV 86.3 fL (80.0-100.0); Mean Platelet Volume 7.7; Monocytes # (A) 0.7 k/uL (0-1.0); Monocytes % (A) 6 %; Neutrophils # (A) 7.3 k/uL (1.3-7.7); Neutrophils % (A) 66 %; Platelet Count 202 k/uL (150-450); RBC 4.42 m/uL (3.80-5.40); RDW 14.8 % (11.5-15.5); WBC 11.1 k/uL (3.8-10.6)
[2018-03-01 10:15] LABS: Potassium 4.2 mmol/L (3.5-5.1)
[2018-03-01] MEDS: FUROSEMIDE 20 MG TAB PO SCH (11:20)
[2018-03-01 12:00] LABS: Glucose,Whole Blood 108 mg/dL (75-99)
[2018-03-01] MEDS: ALPRAZolam 0.25 MG TAB PO PRN (13:51)
[2018-03-01 17:49] LABS: Glucose,Whole Blood 208 mg/dL (75-99)
[2018-03-01] MEDS: INSULIN DETEMIR 100 UNIT/ML 10 ML VIAL SQ SCH (18:00)
--- NOTE | 2018-03-01 20:30 | PN ---
PROGRESS NOTE DATE OF SERVICE: 03/01/2018 This 62-year-old woman who was admitted elevated WBC, possible purulent tracheobronchitis, improved significantly. No chest pain. No palpitations. No fever. The patient is on broad-spectrum IV antibiotics. EXAM: Alert and oriented x3. The pulse is 62, blood pressure 105/73, respiratory 20, temperature 98.2, pulse ox 98% on room air. HEENT: Conjunctivae normal. Oral mucosa moist. Neck is no jugular venous distention. No carotid bruit. No lymph node enlargement. CARDIOVASCULAR: S1, S2. RESPIRATORY: Breath sounds diminished in the bases. A few scattered rhonchi. ABDOMEN: Soft. NERVOUS SYSTEM: No focal deficits. LABS: WBC 11.4, creatinine is 1.18. ASSESSMENT: 1. Elevated WBC with possible acute tracheobronchitis, present on admission. 2. Acute cellulitis of the sacral area, rule out herpes simplex. 3. History of recent chronic obstructive pulmonary disease acute exacerbation. 4. History of recent urinary tract infection with sepsis. 5. Elevated lactic acid with possible sepsis, present on admission. 6. Diabetes mellitus type 2. 7. Hypertension. 8. Hyperlipidemia. 9. History of coronary artery disease. 10.History of myocardial infarction. 11.History of gastric ulcer. 12.History of multiple transient ischemic attacks. 13.History of coronary artery disease. 14.History of pyelonephritis, nephrolithiasis. 15.History of chronic back pain. 16.Obesity with body mass index is 47.5. RECOMMENDATIONS AND DISCUSSION: I recommend to continue to current management, continue to monitor, and symptomatic treatment. Otherwise at this time I recommend continue the antibiotics. Monitor blood sugars closely. Increase ambulation. Guarded prognosis. Further recommendations to follow. MMODL / IJN: [id number] /
[2018-03-01] MEDS: amLODIPine 10 MG TAB PO SCH (20:43)
[2018-03-01 20:46] LABS: Glucose,Whole Blood 158 mg/dL (75-99)
--- NOTE | 2018-03-01 23:48 | PN ---
PROGRESS NOTE DATE OF SERVICE: 03/01/2018. REASON FOR FOLLOWUP: Leukocytosis and E coli pyelonephritis. INTERVAL HISTORY: The patient is currently afebrile. She is breathing comfortably. The patient denies having any chest pain, shortness of breath, or cough. No abdominal pain or any diarrhea. EXAMINATION: Blood pressure is 119/55, with a pulse of 68, temperature 97, she is 97% on room air. GENERAL DESCRIPTION: A middle-aged female up in the bed in no distress. RESPIRATORY SYSTEM: Unlabored breathing with decreased breath sounds. No wheeze. HEART: S1, S2. Regular rate and rhythm. ABDOMEN: Soft, no tenderness. LABS: Hemoglobin is 12.9, white count 11.1 with a BUN of 24, creatinine is 1.18. Hepatitis B and C have been negative. Ultrasound abdominal was negative. DIAGNOSTIC IMPRESSION AND PLAN: Patient with leukocytosis, more likely urinary source in a patient who did have recent E coli right-sided pyelonephritis. Ultrasound did not show any structural abnormality at this point. The patient's white count responded to the Rocephin. Will be able to finish therapy with course of oral Ceftin. Continue supportive care. MMODL / IJN: [id number] /
[2018-03-02] MEDS: SODIUM CHLORIDE 0.9% 1,000 ML IV SCH ×2 (06:13→13:47)
[2018-03-02 06:16] VITALS: BP 118/72; RESP 20; TEMP 97.2
[2018-03-02 07:08] LABS: Glucose,Whole Blood 86 mg/dL (75-99)
[2018-03-02] MEDS: SYMBICORT 160-4.5 MCG INHALER INHALATION SCH (07:20)
[2018-03-02] MEDS: IPRATROPIUM-ALBUTEROL 3 ML NEB INHALATION SCH ×2 (07:20→11:15)
[2018-03-02] MEDS: LORATADINE 10 MG TAB PO SCH (08:46)
[2018-03-02] MEDS: SERTRALINE 100 MG TAB PO SCH (08:46)
[2018-03-02] MEDS: predniSONE 20 MG TAB PO SCH (08:46)
[2018-03-02] MEDS: POTASSIUM CHLORIDE ER 10 MEQ TAB.ER.PRT PO SCH (08:47)
[2018-03-02] MEDS: CLOPIDOGREL 75 MG TAB PO SCH (08:47)
[2018-03-02] MEDS: GLIMEPIRIDE 1 MG TAB PO SCH (08:47)
[2018-03-02] MEDS: FUROSEMIDE 20 MG TAB PO SCH (08:47)
[2018-03-02] MEDS: ISOSORBIDE MONONITRATE ER 30 MG TAB.ER.24H PO SCH (08:47)
[2018-03-02] MEDS: GABAPENTIN 300 MG CAP PO SCH (08:47)
[2018-03-02] MEDS: SENNOSIDES 8.6 MG TAB PO SCH (08:47)
[2018-03-02] MEDS: NICOTINE 14MG/24HR PATCH TRANSDERM SCH (08:48)
[2018-03-02] MEDS: HEPARIN SODIUM,PORCINE 5,000 UNIT/ML 1 ML VIAL SQ SCH (08:48)
[2018-03-02] MEDS: INSULIN ASPART 100 UNIT/ML 1 ML 10 ML VIAL SQ SCH ×2 (08:49→12:45)
[2018-03-02] MEDS: HYDROcodone/APAP 10-325MG 1 EACH TAB PO PRN (09:07)
[2018-03-02 09:46] LABS: Basophils % (A) 0 %; Eosinophils # (A) 0.2 k/uL (0-0.7); Eosinophils % (A) 2 %; HCT 38.3 % (34.0-46.0); HGB 12.3 gm/dL (11.4-16.0); Lymphocytes # (A) 3.6 k/uL (1.0-4.8); Lymphocytes % (A) 32 %; MCH 27.5 pg (25.0-35.0); MCV 85.8 fL (80.0-100.0); Mean Platelet Volume 7.8; Monocytes # (A) 0.7 k/uL (0-1.0); Monocytes % (A) 6 %; Neutrophils # (A) 6.5 k/uL (1.3-7.7); Neutrophils % (A) 58 %; Platelet Count 208 k/uL (150-450); RBC 4.47 m/uL (3.80-5.40); RDW 14.9 % (11.5-15.5); WBC 11.3 k/uL (3.8-10.6)
[2018-03-02 10:10] LABS: Calcium 9.4 mg/dL (8.4-10.2); Potassium 4.2 mmol/L (3.5-5.1)
[2018-03-02] MEDS: TRIAMCINOLONE 0.1% CREAM 80 GM TUBE TOPICAL SCH (10:10)
[2018-03-02] MEDS: NYSTATIN 100,000 UNIT/GM OINT 30 GM TUBE TOPICAL SCH (10:10)
[2018-03-02 11:29] VITALS: PULSE 64
[2018-03-02 11:32] LABS: Glucose,Whole Blood 129 mg/dL (75-99)
--- NOTE | 2018-03-02 13:51 | CDI ---
Last Revision, April 2017 Documentation Clarification Form Date: 02/10/18 From: Odalys Hunter RN Admit Date: 02/26/2018 2:45:00 PM Patient Name: Starr James Visit Number: [id number] ATTENTION: The Clinical Documentation Specialists (CDI) and [facility] Coding Staff appreciate your assistance in clarifying documentation. Please respond to the clarification below the line at the bottom and electronically sign. The CDI & [facility] Coding staff will review the response and follow-up if needed. Please note: Queries are made part of the Legal Health Record. If you have any questions, please contact the author of this message via ITS. Ant Sanches MD, Documentation in the H&P states history of COPD. Pt. Admitted: Sepsis, UTI History/Risk Factors: COPD, DM, HTN, CAD, hyperlipidemia, [place], UTI, DJD, GERD, pneumonia, stent, smoker Clinical Indicators: CXR: similar diffuse interstitial changes and borderline heart size. correlate for possible etiologies such as bronchitis, chronic asthma, persistent pneumonitis or atypical pneumonias. Vital Signs on admission: T 98.6, P 82, R 18, 149/72, 96% RA Lung and Respiratory Assessment: diminished in the bases, few scattered rhonchi and crackles Treatment: Nebulizers: Duoneb, Symbicort Antibiotics: Ceftriaxone IVPB, Levofloxacin IVPB In your professional opinion, can you please clarify if the above findings and treatment signify any of the following? Acute Exacerbation of Chronic Obstructive Pulmonary Disease (COPD) Acute on Chronic Obstructive Asthma Chronic obstructive pulmonary disease with acute lower respiratory infection Emphysema Other condition, please specify Unable to determine Acute Exacerbation of Chronic Obstructive Pulmonary Disease (COPD) MTDD
--- NOTE | 2018-03-02 15:28 | PN ---
PROGRESS NOTE DATE OF SERVICE: 03/02/2018 REASON FOR FOLLOWUP: Leukocytosis likely UTI and possible genital herpes. INTERVAL HISTORY: The patient is afebrile. She was seen on rounds this morning, breathing comfortably. Denies having any chest pain, shortness of breath or cough. No abdominal pain or any diarrhea. PHYSICAL EXAMINATION: Blood pressure 118/72 with a pulse of 50, temperature 97.2. She is 98% on room air. General description is a middle-aged female up in the bed in no distress. RESPIRATORY SYSTEM: Unlabored breathing, clear to auscultation anteriorly. HEART: S1, S2. Regular rate and rhythm. ABDOMEN: Soft, no tenderness. LABS: White count 11.3, BUN of 22, creatinine 1.17. Culture on this admission has been negative so far. DIAGNOSTIC IMPRESSION AND PLAN: 1. Patient with leukocytosis with recent Escherichia coli pyelonephritis. Patient seemed to have shown overall clinical improvement. Finish therapy with oral Ceftin for about 5-7 days. 2. Possible genital herpes, She will be given 1-week course of oral Valtrex. Care was discussed with the admitting physician. HAIM / AMAN: [id number] /
--- NOTE | 2018-03-03 11:13 | DS ---
DISCHARGE SUMMARY DATE OF SERVICE: 03/02/2018. FINAL DIAGNOSES: 1. Elevated WBC with possible acute purulent tracheobronchitis, present on admission. 2. Acute cellulitis of sacral area, possibly herpes simplex. 3. History of recent chronic obstructive pulmonary disease acute exacerbation. 4. History of recent urinary tract infection with sepsis. 5. Elevated lactic acid with possible sepsis, present on admission. 6. Diabetes mellitus type 2. 7. Hypertension. 8. Hyperlipidemia. 9. History of coronary artery disease. 10.History of myocardial infarction. 11.History of gastric ulcer. 12.History of multiple transient ischemic attacks. 13.History of coronary artery disease. 14.History of pyelonephritis and nephrolithiasis. 15.History of chronic back pain. 16.Obesity with body mass index of 47.5. DISCHARGE DISPOSITION: The patient will be discharged in stable condition with guarded prognosis. HISTORY OF PRESENT ILLNESS: This 62-year-old woman with a past medical history of multiple medical problems as mentioned earlier being followed by Dr. Jarrett in the outpatient setting was admitted with multiple symptomatology as mentioned earlier. The patient treated empirically with antibiotics. Dr. Blake initially saw the patient. Cultures are negative so far. Herpes simplex was also suspected. The patient will be started on Valtrex. On exam, vitals are stable. CARDIOVASCULAR: S1 and S2 muffled. RESPIRATORY: A few scattered rhonchi. ABDOMEN: Soft. NERVOUS SYSTEM: No focal deficits. DISCHARGE ADVICE: 1. Diet is cardiac. 2. Activity limited until followup. 3. Followup with Dr. Jarrett in 2 to 3 days. Medications are: 1. Norvasc 10 mg q.h.s. 2. Cetirizine 10 mg p.o. daily. 3. Plavix 75 mg p.o. daily. 4. Lasix 20 mg p.o. daily. 5. Neurontin 600 mg p.o. t.i.d. 6. Amaryl 1 mg a.c. breakfast. 7. Hydrocodone 10 mg t.i.d. p.r.n. 8. Insulin Lantus 20 units subcutaneously q.h.s. 9. Imdur 30 mg q.a.m. 10.Robaxin 750 mg p.o. b.i.d. 11.Nitrostat 0.4 sublingual p.r.n. 12.K-Dur 10 mEq p.o. daily. 13.Zoloft 100 mg p.o. daily. 14.Triamcinolone one application topically. 15.Symbicort 160/4.5 two puffs b.i.d. 16.Ceftin 500 mg p.o. b.i.d. for 3 days. 17.DuoNeb q.i.d. and p.r.n. 18.Habitrol 14 daily. 19.Valtrex 1000 mg p.o. b.i.d. for 2 weeks and continue the maintenance as outpatient per Dr. Jarrett. Once again, the patient will be discharged in a stable condition with guarded prognosis. MMODL / IJN: [id number] /
== END 2018-03-02 14:26 | disposition home or self-care (01) | DRG 872 ==
LOC: EC 11:50 → 4MS4W 14:45
PROVIDERS: ADMIT Hospitalist; ATTEND Hospitalist
DX: A41.9 Sepsis, unspecified organism (principal); J44.0 Chronic obstructive pulmonary disease with (acute) lower respiratory infection; L03.317 Cellulitis of buttock; Z68.42 Body mass index [BMI] 45.0-49.9, adult; J44.1 Chronic obstructive pulmonary disease with (acute) exacerbation; E87.2 Acidosis; N39.0 Urinary tract infection, site not specified; J20.9 Acute bronchitis, unspecified; E11.9 Type 2 diabetes mellitus without complications; I10 Essential (primary) hypertension; E78.5 Hyperlipidemia, unspecified; I25.10 Atherosclerotic heart disease of native coronary artery without angina pectoris; I25.2 Old myocardial infarction; Z87.11 Personal history of peptic ulcer disease; Z86.73 Personal history of transient ischemic attack (TIA), and cerebral infarction without residual deficits; M54.9 Dorsalgia, unspecified; Z90.49 Acquired absence of other specified parts of digestive tract; F17.200 Nicotine dependence, unspecified, uncomplicated; G89.29 Other chronic pain; E66.01 Morbid (severe) obesity due to excess calories; K21.9 Gastro-esophageal reflux disease without esophagitis; B00.9 Herpesviral infection, unspecified; M19.90 Unspecified osteoarthritis, unspecified site; K59.00 Constipation, unspecified; Z87.01 Personal history of pneumonia (recurrent); Z79.891 Long term (current) use of opiate analgesic; Z79.51 Long term (current) use of inhaled steroids; Z79.52 Long term (current) use of systemic steroids; Z79.899 Other long term (current) drug therapy; Z88.0 Allergy status to penicillin; Z88.8 Allergy status to other drugs, medicaments and biological substances; Z80.52 Family history of malignant neoplasm of bladder; Z84.1 Family history of disorders of kidney and ureter; Z95.5 Presence of coronary angioplasty implant and graft; Z88.6 Allergy status to analgesic agent; Z79.02 Long term (current) use of antithrombotics/antiplatelets; Z79.84 Long term (current) use of oral hypoglycemic drugs; Z88.5 Allergy status to narcotic agent; Z87.442 Personal history of urinary calculi; H93.19 Tinnitus, unspecified ear; I67.1 Cerebral aneurysm, nonruptured; F41.9 Anxiety disorder, unspecified; F32.9 Major depressive disorder, single episode, unspecified; Z87.440 Personal history of urinary (tract) infections
CPT/HCPCS: 36415; 71046; 76700; 80048; 80053; 81003; 83036; 83605; 85025; 86708; 86803; 87040; 87086; 87340; 94640; 94760; 96365; 99285

== ENCOUNTER 2018-12-23 11:44 | Observation (INO) | payer MEDICARE, OTHER ==
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
[2018-12-23] MEDS ORDERED: MORPHINE SULFATE 4 MG/ML SYRINGE IV STA (12:24)
[2018-12-23] MEDS ORDERED: ASPIRIN 81 MG PO STA (12:24)
[2018-12-23 12:37] LABS: Basophils # (A) 0.1 k/uL (0-0.2); Basophils % (A) 1 %; Eosinophils # (A) 0.4 k/uL (0-0.7); Eosinophils % (A) 2 %; HCT 45.5 % (34.0-46.0); HGB 14.7 gm/dL (11.4-16.0); Lymphocytes # (A) 2.9 k/uL (1.0-4.8); Lymphocytes % (A) 20 %; MCH 26.7 pg (25.0-35.0); MCHC 32.3 g/dL (31.0-37.0); MCV 82.8 fL (80.0-100.0); Mean Platelet Volume 7.9; Monocytes # (A) 0.9 k/uL (0-1.0); Monocytes % (A) 6 %; Neutrophils # (A) 10.5 k/uL (1.3-7.7); Neutrophils % (A) 70 %; Platelet Count 227 k/uL (150-450); RBC 5.49 m/uL (3.80-5.40); RDW 15.3 % (11.5-15.5); WBC 14.9 k/uL (3.8-10.6)
[2018-12-23 12:49] LABS: Albumin 4.1 g/dL (3.5-5.0); Calcium 9.4 mg/dL (8.4-10.2); Potassium 3.8 mmol/L (3.5-5.1); Total Bilirubin 0.3 mg/dL (0.2-1.3); Total Protein 7.7 g/dL (6.3-8.2)
[2018-12-23 12:51] LABS: Partial Thromboplastin Time 23.3 sec (22.0-30.0); Prothrombin Time 10.3 sec (9.0-12.0)
--- NOTE | 2018-12-23 13:06 | XR ---
EXAMINATION TYPE: XR chest 2V DATE OF EXAM: 12/23/2018 COMPARISON: 02/26/2019 HISTORY: Chest pain and shortness of breath TECHNIQUE: Frontal and lateral views of the chest are obtained. FINDINGS: There is an enlarged cardiomediastinal silhouette. Thoracic nerve root stimulators seen. S trand-like bibasilar opacities have improved. No focal consolidation, pleural effusion or pneumothora x. IMPRESSION: Minimal bibasilar airspace disease, improved from the prior and likely represents chroni c atelectasis. Chronic bronchitis as suggested on the prior exam of 2018 is an alternative possibilit y.
[2018-12-23 13:17] LABS: Appearance,Urine Clear (Clear); Bilirubin,Urine Negative (Negative); Blood,Urine Negative (Negative); Color,Urine Yellow; Glucose,Urine (UA) 2+ (Negative); Ketones,Urine Negative (Negative); Leukocyte Esterase,Urine Large (Negative); Mucus,Urine Rare /hpf; Nitrite,Urine Negative (Negative); PH, Urine 6.5 (5.0-8.0); Protein,Urine 2+ (Negative); Specific Gravity,Urine 1.015 (1.001-1.035); Squamous Epithelial Cell,Urine 1 /hpf (0-4); Urobilinogen,Urine <2.0 mg/dL (<2.0); WBC,Urine 63 /hpf (0-5)
[2018-12-23 13:24] LABS: D-Dimer 0.8 mg/L FEU (<0.60)
[2018-12-23 14:34] VITALS: RESP 18
[2018-12-23] MEDS ORDERED: SODIUM CHLORIDE 0.9% 500 ML 500 ML IV STA (14:40)
--- NOTE | 2018-12-23 15:18 | CT ---
EXAMINATION TYPE: CT abdomen pelvis w con DATE OF EXAM: 12/23/2018 HISTORY: Left rib pain and difficulty breathing. CT DLP: 2162.4mGycm Automated Exposure Control for Dose Reduction was Utilized. CONTRAST: CT scan of the abdomen and pelvis is performed with IV Contrast, patient injected with 100 mL of Isov ue 370. COMPARISON: Abdominal ultrasound dated 02/28/[address] dated 02/13/2018 FINDINGS: LUNG BASES: The lung bases demonstrate minimal left peribronchial cuffing and bibasilar atelectasis a s well as linear left basilar pleural-parenchymal scarring. No pericardial effusion and the visualize d lower thorax. LIVER/GB: Hepatic parenchyma is diffusely hypoattenuated in comparison to that of the spleen, most co mmonly seen in hepatic steatosis. This finding limits evaluation for hepatic masses. No gross evidenc e of hepatic mass is seen. No intrahepatic biliary ductal dilatation. There is a subtle nodular conto ur the liver. Gallbladder appears surgically absent. PANCREAS: No significant nodularity or thickening. SPLEEN: No splenomegaly. ADRENALS: No significant abnormality is seen. KIDNEYS: There is multifocal cortical scarring of the right kidney. There are 2 nonobstructing right renal calculi measuring 3 and 2 mm. Fluid attenuated 1.5 cm right lower pole renal cyst and additiona l right lower pole too small to accurately characterize renal lesion is seen. Overall the kidneys enh ance symmetrically without hydronephrosis. Resolution of the previously seen right-sided hydronephros is on the exam of 02/13/2018. BOWEL: Moderate degree colonic fecal stasis without dilated large or small bowel. Appendix is air-vijay led and within normal limits. UTERUS/ADNEXA: No gross abnormality seen. LYMPH NODES: No greater than 1cm abdominal or pelvic lymph nodes are appreciated. OSSEOUS STRUCTURES: Mild multilevel degenerative disc disease. OTHER: Nerve root stimulator is implanted in the dorsal lumbar spine subcutaneous tissues. Moderate a therosclerosis left calcific and noncalcific atheromatous change of the abdominal aorta and its branc hes. No aneurysmal dilatation. Very small fat filled periumbilical hernia. IMPRESSION: 1. Minimal left basilar atelectasis and peribronchial cuffing that could relate to reactive or infect ious airway disease such as bronchitis. 2. Hepatic steatosis and subtle nodular contour the liver particularly within the inferior right hepa tic lobe. Nonalcoholic hepatitis could be considered. Correlate with liver function tests. 3. Nonobstructing right renal calculi measuring 3 and 2 mm in the lower pole.
--- NOTE | 2018-12-23 15:23 | CT ---
EXAMINATION TYPE: CT chest angio for PE DATE OF EXAM: 12/23/2018 COMPARISON: None HISTORY: Left rib pain and difficulty breathing. CT DLP: 641.8 mGycm Automated exposure control for dose reduction was used. CONTRAST: CT Chest for pulmonary embolism performed with with IV Contrast, patient injected with 80 mL of Isovu e 370. FINDINGS: LUNGS: The lungs are grossly clear, there is no concerning parenchymal mass or nodule identified. T here is no pleural effusion or pneumothorax seen. The tracheobronchial tree is patent. Groundglass c hanges within both lungs. There is interlobular septal thickening. MEDIASTINUM: There is satisfactory enhancement of the pulmonary artery and its branches, there is no CT evidence for pulmonary embolism. There are no greater than 1 cm hilar or mediastinal lymph nodes. No pericardial effusion is seen. Coronary artery calcification noted. Atherosclerotic change aort a. OTHER: Hypertrophic and degenerative change of the spine. Suggestion of a catheter within the spinal canal correlate clinically IMPRESSION: 1. No diagnostic evidence of pulmonary a most some. 2. Changes suggest chronic interstitial lung disease with bilateral groundglass changes may been the basis of atelectasis. Correlate clinically to exclude pneumonitis. 3. Coronary artery calcification.
[2018-12-23] MEDS ORDERED: NITROGLYCERIN SL TABS 0.4 MG TAB SUBLINGUAL PRN ×2 (16:02→17:04)
[2018-12-23] MEDS ORDERED: cefTRIAXone IN SWFI 1,000 MG/10 ML SYRINGE IVP STA (16:06)
[2018-12-23] MEDS: MORPHINE SULFATE 4 MG/ML SYRINGE IVP PRN ×2 (16:30→21:52)
[2018-12-23] MEDS: NICOTINE 21MG/24HR PATCH TRANSDERM SCH (16:43)
[2018-12-23] MEDS ORDERED: METHOCARBAMOL 750 MG TAB PO PRN (17:04)
[2018-12-23 17:58] VITALS: BMI 34.7
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
[2018-12-23] MEDS ORDERED: INSULIN DETEMIR (LEVEMIR) 100 UNIT/ML SYR SQ SCH (18:30)
[2018-12-23] MEDS: HYDROcodone/APAP 10-325MG 1 EACH TAB PO PRN (18:53)
[2018-12-23] MEDS: SODIUM CHLORIDE 0.9% 1,000 ML IV SCH (18:57)
[2018-12-23 20:16] LABS: Glucose,Whole Blood 146 mg/dL (75-99)
[2018-12-23] MEDS ORDERED: amLODIPine 10 MG TAB PO SCH (21:00)
[2018-12-23] MEDS: GABAPENTIN 300 MG CAP PO SCH (21:03)
[2018-12-24] MEDS: HYDROcodone/APAP 10-325MG 1 EACH TAB PO PRN (03:18)
[2018-12-24] MEDS: SODIUM CHLORIDE 0.9% 1,000 ML IV SCH (03:21)
[2018-12-24 06:27] LABS: Glucose,Whole Blood 132 mg/dL (75-99)
[2018-12-24 06:55] LABS: HCT 40.7 % (34.0-46.0); HGB 13.3 gm/dL (11.4-16.0); MCH 27.5 pg (25.0-35.0); MCHC 32.6 g/dL (31.0-37.0); MCV 84.5 fL (80.0-100.0); Mean Platelet Volume 7.8; Platelet Count 194 k/uL (150-450); RBC 4.82 m/uL (3.80-5.40); RDW 15.1 % (11.5-15.5)
[2018-12-24 07:04] LABS: Calcium 8.7 mg/dL (8.4-10.2); Potassium 3.7 mmol/L (3.5-5.1)
[2018-12-24] MEDS ORDERED: ASPIRIN 325 MG TAB PO SCH (09:00)
[2018-12-24] MEDS: NICOTINE 21MG/24HR PATCH TRANSDERM SCH (09:06)
[2018-12-24] MEDS: MORPHINE SULFATE 4 MG/ML SYRINGE IVP PRN (09:07)
[2018-12-24] MEDS: GABAPENTIN 300 MG CAP PO SCH (09:07)
--- NOTE | 2018-12-24 11:31 | P.DS ---
Providers Date of admission: 12/23/18 15:46 Attending physician: Wilbur Hooper Consults: 12/23/18 16:03 Consult Physician Urgent Consulting Provider: Roman Tobin Consult Reason/Comments: back pain, ekg changes, T wave inversions in V5 V6 Do you want consulting provider notified?: Yes Primary care physician: Luiza Mclaughlin [facility] Course: 63-year-old female came in with the pain on the left side of the abdomen appears to be musculoskeletal. He'll be discharged on meloxicam and Zantac. Patient wearing a valid by cardiology because of some nonspecific ST-T wave changes which I do not believe that significant. Patient follows up at the Dr. Tobin as an outpatient. PHYSICAL EXAMINATION: GENERAL: The patient is alert and oriented x3, not in any acute distress. Well developed, well nourished. HEENT: Pupils are round and equally reacting to light. EOMI. No scleral icterus. No conjunctival pallor. Normocephalic, atraumatic. No pharyngeal erythema. No thyromegaly. CARDIOVASCULAR: S1 and S2 present. No murmurs, rubs, or gallops. PULMONARY: Chest is clear to auscultation, no wheezing or crackles. ABDOMEN: Soft, nontender, nondistended, normoactive bowel sounds. No palpable organomegaly. MUSCULOSKELETAL: No joint swelling or deformity. EXTREMITIES: No cyanosis, clubbing, or pedal edema. NEUROLOGICAL: Gross neurological examination did not reveal any focal deficits. SKIN: No rashes. Physical medication of [facility] from yesterday for further details Patient Condition at Discharge: Fair Plan - Discharge Summary Discharge Rx Participant: Yes New Discharge Prescriptions: New Meloxicam 7.5 mg PO DAILY PRN #20 tablet PRN Reason: Pain Ranitidine HCl [Zantac] 150 mg PO BID #30 tab Continue Nitroglycerin Sl Tabs [Nitrostat] 0.4 mg SUBLINGUAL Q5M PRN PRN Reason: Chest Pain Methocarbamol [Robaxin] 750 mg PO BID PRN PRN Reason: Pain HYDROcodone/APAP 10-325MG [[place] 10-325] 1 tab PO TID PRN PRN Reason: Pain amLODIPine [Norvasc] 10 mg PO HS Gabapentin [Neurontin] 600 mg PO TID Insulin Glargine,Hum.rec.anlog [[place] Majorostar] 20 units SQ PC-SUPPER Potassium Chloride ER [K-Dur 10] 10 meq PO DAILY Glimepiride [Amaryl] 1 mg PO AC-BRKFST Dicyclomine [Bentyl] 20 mg PO TID Discontinued Furosemide [Lasix] 20 mg PO DAILY Discharge Medication List Gabapentin [Neurontin] 600 mg PO TID 10/11/15 [History] HYDROcodone/APAP 10-325MG [[place] 10-325] 1 tab PO TID PRN 10/11/15 [History] Insulin Glargine,Hum.rec.anlog [Toujeo Solostar] 20 units SQ PC-SUPPER 10/11/15 [History] Methocarbamol [Robaxin] 750 mg PO BID PRN 10/11/15 [History] Nitroglycerin Sl Tabs [Nitrostat] 0.4 mg SUBLINGUAL Q5M PRN 10/11/15 [History] amLODIPine [Norvasc] 10 mg PO HS 10/11/15 [History] Glimepiride [Amaryl] 1 mg PO AC-BRKFST 02/13/18 [History] Potassium Chloride ER [K-Dur 10] 10 meq PO DAILY 02/13/18 [History] Dicyclomine [Bentyl] 20 mg PO TID 12/23/18 [History] Meloxicam 7.5 mg PO DAILY PRN #20 tablet 12/24/18 [Rx] Ranitidine HCl [Zantac] 150 mg PO BID #30 tab 12/24/18 [Rx] Follow up Appointment(s)/Referral(s): Shaan Jarrett MD [Primary Care Provider] - 3 Days Roman Tobin MD [STAFF PHYSICIAN] - 01/05/19 2:30 pm (Friday with [facility]DBO[facility] GRINDER) Discharge Disposition: HOME SELF-CARE
[2018-12-24 11:45] LABS: Glucose,Whole Blood 132 mg/dL (75-99)
[2018-12-24 12:48] VITALS: BP 118/66; PULSE 60; TEMP 98.2
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
[2018-12-24 19:34] LABS: Hemoglobin A1C 7.1 % (4.0-6.0)
== END 2018-12-24 14:49 | disposition home or self-care (01) ==
LOC: EC 11:44 → 3SCARD 15:46
PROVIDERS: ADMIT Internal Medicine; ATTEND Internal Medicine
DX: R10.13 Epigastric pain (principal); R10.12 Left upper quadrant pain; M54.9 Dorsalgia, unspecified; F17.210 Nicotine dependence, cigarettes, uncomplicated; K21.9 Gastro-esophageal reflux disease without esophagitis; G89.29 Other chronic pain; Z68.42 Body mass index [BMI] 45.0-49.9, adult; R82.71 Bacteriuria; E11.9 Type 2 diabetes mellitus without complications; I11.9 Hypertensive heart disease without heart failure; R94.31 Abnormal electrocardiogram [ECG] [EKG]; E66.01 Morbid (severe) obesity due to excess calories; K76.0 Fatty (change of) liver, not elsewhere classified; J84.9 Interstitial pulmonary disease, unspecified; N20.0 Calculus of kidney; E78.5 Hyperlipidemia, unspecified; Z87.01 Personal history of pneumonia (recurrent); I25.2 Old myocardial infarction; Z71.6 Tobacco abuse counseling; I25.10 Atherosclerotic heart disease of native coronary artery without angina pectoris; Z87.11 Personal history of peptic ulcer disease; Z90.49 Acquired absence of other specified parts of digestive tract; Z95.5 Presence of coronary angioplasty implant and graft; Z79.899 Other long term (current) drug therapy; Z88.0 Allergy status to penicillin; Z88.5 Allergy status to narcotic agent; Z88.8 Allergy status to other drugs, medicaments and biological substances; Z79.1 Long term (current) use of non-steroidal anti-inflammatories (NSAID); Z79.84 Long term (current) use of oral hypoglycemic drugs; Z87.442 Personal history of urinary calculi; Z86.19 Personal history of other infectious and parasitic diseases
CPT/HCPCS: 96376 ×3; 96365; 96361; 96375; 99285; 36415; 93005; 85379; 83880; 80061; 80053; 80048; 82150; 83690; 83735; 84484 ×2; 85025; 85027; 85610; 85730; 81001; 83036; 71046; 71275; 74177; G0378 ×2; S4990 ×2; J2270 ×2; J0696 ×2; Q9967

== ENCOUNTER → 2019-03-17 | Outpatient (CLI) | payer MEDICARE, OTHER ==
[2019-03-17 16:57] LABS: Potassium 4.4 mmol/L (3.5-5.1)
[2019-03-17 17:03] LABS: HCT 43.3 % (34.0-46.0); HGB 13.9 gm/dL (11.4-16.0); MCH 26.7 pg (25.0-35.0); MCHC 32.1 g/dL (31.0-37.0); MCV 82.9 fL (80.0-100.0); Mean Platelet Volume 7.7; Platelet Count 230 k/uL (150-450); RBC 5.22 m/uL (3.80-5.40); RDW 14.6 % (11.5-15.5); WBC 13.8 k/uL (3.8-10.6)
== END | disposition home or self-care (01) ==
LOC: LABPAT 16:04
PROVIDERS: ATTEND Internal Medicine Interventional Cardiology
DX: Z01.812 Encounter for preprocedural laboratory examination (principal); I73.9 Peripheral vascular disease, unspecified; I25.10 Atherosclerotic heart disease of native coronary artery without angina pectoris
CPT/HCPCS: 80051; 82565; 82947; 84520; 85027

== ENCOUNTER → 2019-03-17 | Outpatient (CLI) | payer MEDICARE, OTHER ==
--- NOTE | 2019-03-17 16:26 | CT ---
EXAMINATION TYPE: CT chest wo con DATE OF EXAM: 03/17/2019 COMPARISON: None HISTORY: SOB x [address] DLP: 273 mGycm High-resolution noncontrast CT of the chest was performed with the patient in the prone and supine po sitions. Lung and mediastinal window settings are submitted. The lungs appear to be well-aerated. Minimal subpleural fibrotic change at the lung bases. There is n o evidence for bronchiectasis, groundglass infiltrate, nodule or mass. No pleural effusion is identi fied. I do not see evidence for hilar or mediastinal mass or adenopathy. IMPRESSION: 1 very mild subpleural fibrosis noted at the lung bases.
== END ==
LOC: CPPFTMAIN 14:03
PROVIDERS: ATTEND Internal Medicine Critical Care Medicine
DX: J84.10 Pulmonary fibrosis, unspecified (principal); J44.9 Chronic obstructive pulmonary disease, unspecified; R94.2 Abnormal results of pulmonary function studies
CPT/HCPCS: 71250; 94060; 94726; 94729

== ENCOUNTER 2019-03-22 06:39 | Day surgery (SDC) | payer MEDICARE, OTHER ==
[2019-03-18 15:21] VITALS: BMI 27.3
[~2019-03-22 06:39] MED LIST: ASPIRIN 325 MG TAB PO STA; ATORVASTATIN 80 MG TAB PO STA; NITROGLYCERIN SL TABS 0.4 MG TAB SUBLINGUAL PRN
[2019-03-22] MEDS ORDERED: SODIUM CHLORIDE 0.9% 1,000 ML in EMPTY BAG 1 BAG IV ONE (07:00)
[2019-03-22 07:32] LABS: Glucose,Whole Blood 140 mg/dL (75-99)
[2019-03-22] MEDS ORDERED: HYDROcodone/APAP 10-325MG 1 EACH TAB ONE (07:38)
[2019-03-22] MEDS ORDERED: fentaNYL (PF) 50 MCG/ML 2 ML AMP IV ONE (09:45)
[2019-03-22] MEDS ORDERED: MIDAZOLAM 2 MG/2 ML VIAL IV ONE (09:45)
[2019-03-22] MEDS ORDERED: LIDOCAINE 1% INJ 10MG/ML (20 ML MDV) SQ ONE ×3 (09:48→10:28)
[2019-03-22] MEDS ORDERED: BIVALIRUDIN BOLUS 250 MG/50 ML IV ONE (10:00)
[2019-03-22] MEDS ORDERED: BIVALIRUDIN 250 MG in SODIUM CHLORIDE 0.9% 33 ML IV ONE (10:02)
[2019-03-22] MEDS ORDERED: BIVALIRUDIN 250 MG in SODIUM CHLORIDE 0.9% 50 ML IV ONE (10:43)
[2019-03-22] MEDS ORDERED: CLOPIDOGREL 75 MG TAB PO ONE (10:48)
[2019-03-22] MEDS ORDERED: HYDROmorphone 1 MG/ML 1 ML SYRINGE IVP ONE (10:48)
[2019-03-22] MEDS ORDERED: NITROGLYCERIN 1000MCG/10ML SYRINGE INTRACORON ONE ×2 (10:48→10:59)
[2019-03-22] MEDS ORDERED: IOPAMIDOL-370 125ML BTL INJ ONE (11:00)
[2019-03-22] MEDS ORDERED: NITROGLYCERIN SL TABS 0.4 MG TAB SUBLINGUAL PRN ×2 (11:06→11:08)
[2019-03-22] MEDS ORDERED: ACETAMINOPHEN TAB 325 MG TAB PO PRN (11:06)
[2019-03-22] MEDS ORDERED: LORATADINE 10 MG TAB PO PRN (11:06)
[2019-03-22] MEDS ORDERED: METHOCARBAMOL 750 MG TAB PO PRN (11:06)
[2019-03-22] MEDS ORDERED: ATROPINE SULFATE 0.1 MG/ML 10ML SYRINGE IV PRN (11:08)
[2019-03-22] MEDS ORDERED: MAG HYDROX/AL HYDROX/SIMETH 30 ML CUP PO PRN (11:08)
[2019-03-22] MEDS ORDERED: RX INFO: IV CONTRAST WAS GIVEN 1 EACH MISC MISCELLANE PRN (11:08)
[2019-03-22] MEDS ORDERED: ZOLPIDEM 5 MG TAB PO PRN (11:08)
[2019-03-22] MEDS ORDERED: SODIUM CHLORIDE 0.9% 1,000 ML IV SCH (11:15)
--- NOTE | 2019-03-22 12:05 | PTCA ---
PERCUTANEOUSTRANS CORORONARY ANGIOGRAPHY DATE OF SERVICE: 03/22/2019 PERFORMING PHYSICIAN: Roman Tobin MD. PROCEDURE PERFORMED: 1. Successful stenting of the first diagonal branch of the LAD using 2.0 x 15 mm [place] MARKY with an excellent angiographic results and reduction of stenosis from 80% to 0%. 2. Successful stenting of the mid to distal LAD using 2.5 x 23 mm Xience MARKY with an excellent angiographic results and reduction of stenosis from 80% to 0%. INDICATION: This is a 63-year-old female patient with history of coronary artery disease and prior stenting of the diagonal as well as history of diabetes and smoking, who was experiencing shortness of breath with exertion. She underwent a heart catheterization and that revealed intermediate to severe disease involving the RCA as well as severe disease involving the first diagonal and mid to distal LAD. She was brought today to undergo a PCI of the first diagonal and mid to distal LAD. APPROACH: 1. Right radial artery. 2. Right common femoral artery. COMPLICATION: None. LEVEL OF SEDATION: Moderate with sedation length of 77 minutes. PROCEDURE DESCRIPTION: After obtaining an informed consent, the patient was brought to the cardiac veterinary laboratory technician. I accessed the right radial artery using micropuncture technique. The micropuncture wire passed easily, then I placed a 6-Vietnamese sheath. I had a hard time engaging the coronary arteries from right radial approach because of tortuous right subclavian and because of that, I decided to abort the right radial approach and access the right groin. The right common femoral artery was cannulated using micropuncture technique. The micropuncture wire passed easily, then I placed a 6-Vietnamese 11 cm sheath. Subsequently, I did start anticoagulation with Angiomax. Subsequently, I did engage the left main using XB 3.5 LAD guide. I did wire the LAD using a Whisper wire and I did wire the diagonal using a run-through wire. I did PTCA ballooning of the diet using 2.5 x 12 mm balloon before I deployed 2.0 x 15 mm [place] drug-eluting stent where the stent was positioned under fluoroscopy guidance and deployed under 18 atmospheres for 20 seconds with the following angiogram showing excellent angiographic results. Subsequently, I did direct stenting of the lesion in the LAD using 2.5 x 23 mm Xience MARKY where the stent was positioned under fluoroscopy guidance and deployed under fluoroscopy guidance. I post-dilated the stent using 2.5 mm NC balloon. The following angiogram showed excellent angiographic results and the procedure was completed without any complication. POSTPROCEDURE MANAGEMENT: 1. Dual anti-platelet therapy. 2. Risk factor modifications. 3. Follow up with the patient. HAIM / EDITHN: [id number] /
[2019-03-22 12:08] LABS: Glucose,Whole Blood 96 mg/dL (75-99)
[2019-03-22] MEDS: HYDROcodone/APAP 10-325MG 1 EACH TAB PO PRN (15:40)
[2019-03-22] MEDS: DICYCLOMINE 20 MG TAB PO SCH ×2 (15:40→21:33)
[2019-03-22] MEDS: GABAPENTIN 300 MG CAP PO SCH ×2 (15:40→21:33)
[2019-03-22 17:38] LABS: Glucose,Whole Blood 126 mg/dL (75-99)
[2019-03-22] MEDS ORDERED: INSULIN DETEMIR (LEVEMIR) 100 UNIT/ML SYR SQ SCH (18:30)
[2019-03-22] MEDS ORDERED: NICOTINE 14MG/24HR PATCH TRANSDERM STA (20:42)
[2019-03-22] MEDS ORDERED: amLODIPine 10 MG TAB PO SCH (21:00)
[2019-03-22] MEDS ORDERED: hydrOXYzine HCL 25 MG TAB PO SCH (21:00)
[2019-03-22] MEDS ORDERED: NON FORMULARY DRUG (Simvastatin 40 MG) PO SCH (21:00)
[2019-03-23] MEDS: HYDROcodone/APAP 10-325MG 1 EACH TAB PO PRN (01:20)
[2019-03-23 05:41] LABS: Basophils # (A) 0.1 k/uL (0-0.2); Basophils % (A) 1 %; Eosinophils # (A) 0.2 k/uL (0-0.7); Eosinophils % (A) 2 %; HCT 38.1 % (34.0-46.0); HGB 12.4 gm/dL (11.4-16.0); Lymphocytes % (A) 18 %; MCH 27.7 pg (25.0-35.0); MCHC 32.6 g/dL (31.0-37.0); MCV 84.9 fL (80.0-100.0); Mean Platelet Volume 6.9; Monocytes # (A) 0.7 k/uL (0-1.0); Monocytes % (A) 7 %; Neutrophils # (A) 7.6 k/uL (1.3-7.7); Neutrophils % (A) 70 %; Platelet Count 170 k/uL (150-450); RBC 4.49 m/uL (3.80-5.40); RDW 14.7 % (11.5-15.5); WBC 10.8 k/uL (3.8-10.6)
[2019-03-23 05:57] LABS: Calcium 8.8 mg/dL (8.4-10.2); Potassium 4.8 mmol/L (3.5-5.1)
[2019-03-23] MEDS ORDERED: GLIMEPIRIDE 1 MG TAB PO SCH (07:30)
[2019-03-23] MEDS: GABAPENTIN 300 MG CAP PO SCH (08:56)
[2019-03-23] MEDS: DICYCLOMINE 20 MG TAB PO SCH (08:57)
[2019-03-23] MEDS ORDERED: NON FORMULARY DRUG (Cranberry Fruit Extract [Cranberry] 200 MG) PO SCH (09:00)
[2019-03-23] MEDS ORDERED: ATORVASTATIN 20 MG TAB PO SCH (09:00)
[2019-03-23] MEDS ORDERED: POTASSIUM CHLORIDE ER 10 MEQ TAB.ER.PRT PO SCH (09:00)
[2019-03-23] MEDS ORDERED: CLOPIDOGREL 75 MG TAB PO SCH (09:00)
[2019-03-23] MEDS ORDERED: ISOSORBIDE MONONITRATE ER 30 MG TAB.ER.24H PO SCH (09:00)
[2019-03-23] MEDS ORDERED: SERTRALINE 100 MG TAB PO SCH (09:00)
[2019-03-23] MEDS ORDERED: ASPIRIN 81 MG PO SCH (09:00)
[2019-03-23 11:01] VITALS: RESP 18
--- NOTE | 2019-03-23 11:21 | P.PN ---
Subjective Progress Note Date: 03/23/19 03/23/2019 This is a 63-year-old patient with known history of coronary artery disease and prior stenting, diabetes, hypertension, hyperlipidemia, nicotine dependence, who was brought to the hospital by Dr. Castro, underwent successful stenting the first diagonal branch of the LAD and mid to distal LAD. EKG from this morning showed a normal sinus rhythm with nonspecific ST-T wave changes, no acute changes from post-PCI. Patient denies any chest pain, no difficulty in breathing. Blood pressure 140/70 with a heart rate in the 50s, 92% on room air. White blood cell count 10.8, hemoglobin 12.4, platelet count 170. Sodium 141, potassium 4.8, BUN 23 and creatinine 1.7. Objective - Vital Signs Vital signs: Vital Signs Temp 98.3 F 03/23/19 08:25 Pulse 56 L 03/23/19 08:25 Resp 18 03/23/19 08:25 BP 141/74 03/23/19 08:25 Pulse Ox 92 L 03/23/19 08:25 Intake & Output 03/22/19 03/23/19 03/23/19 18:59 06:59 18:59 Intake Total 2088 1020 600 Output Total 400 Balance 2088 620 600 Weight 65.771 kg 114 kg Intake: IV 708 Intake, IV Titration 600 600 Amount Sodium Chloride 0.9% 1, 600 600 000 ml @ 75 mls/hr IV . [id number] ERASMO Rx#:[id number] Oral 780 420 600 Output: Urine 400 Other: Voiding Method Toilet Toilet # Voids 3 - Exam PHYSICAL EXAMINATION: GENERAL: 63-year-old female in no acute distress at the time of my examination HEENT: Head is atraumatic, normocephalic. Pupils equal, round. Sclera anicteric. Conjunctiva are clear. Mucous membranes of the mouth are moist. Neck is supple. There is no elevated jugular venous pressure. No Carotid bruit is heard. HEART EXAMINATION: Heart S1, S2 normal. No murmur or gallop heard. CHEST EXAMINATION: Lungs reveal fine crackles to bilateral bases . No chest wall tenderness is noted on palpation or with deep breathing. ABDOMEN: Soft, nontender. Bowel sounds are heard. No organomegaly noted. EXTREMITIES: 2+ peripheral pulses with no evidence of peripheral edema and no calf tenderness noted. Right groin soft, no evidence of any hematoma, right radial site clean and dry, good distal pulse NEUROLOGIC patient is awake, alert and oriented 3 . . - Labs CBC & Chem 7: 03/23/19 05:10 03/23/19 05:10 Labs: Abnormal Lab Results - Last 24 Hours (Table) 03/22/19 03/23/19 03/23/19 Range/Units 17:33 05:10 05:10 WBC 10.8 H (3.8-10.6) k/uL Chloride 109 H (98-107) mmol/L BUN 23 H (7-17) mg/dL Creatinine 1.73 H (0.52-1.04) mg/dL Glucose 101 H (74-99) mg/dL POC Glucose (mg/dL) 126 H (75-99) mg/dL Assessment and Plan Plan: Assessment and plan #1 status post angioplasty and stenting of the diagonal and LAD #2 known history of coronary artery disease with prior PCI #3 diabetes #4 hypertension #5 hyperlipidemia #6 nicotine dependence Plan Patient has been educated regarding the importance of nicotine cessation. She may be able to be discharged home today to follow-up with Dr. Castro in the office post discharge. Discharge medications include aspirin 81 mg daily, Lipitor 80 mg daily, Plavix 75 mg daily, Neurontin 600 mg 3 times a day, glimepiride, insulin as at home, Imdur 30 mg daily, nicotine patch, sublingual nitroglycerin as needed for chest pain. No BROWN inhibitor at this time because of elevated renal function, we will add a small dose of beta ginny. DNP note has been reviewed, I agree with a documented findings and plan of care. Patient was seen and examined.
[2019-03-23 12:16] VITALS: PULSE 61
[2019-03-23 12:22] VITALS: BP 120/74; TEMP 98.8
[2019-03-24] MEDS ORDERED: METOPROLOL TARTRATE 12.5 MG TAB PO SCH (09:00)
== END 2019-03-23 13:19 | disposition home or self-care (01) ==
LOC: CATHCVL 06:39 → 3SCARD 11:07 → CATHCVL 03-23 13:19
PROVIDERS: ATTEND Internal Medicine Interventional Cardiology
DX: I25.10 Atherosclerotic heart disease of native coronary artery without angina pectoris (principal); R09.89 Other specified symptoms and signs involving the circulatory and respiratory systems; I77.9 Disorder of arteries and arterioles, unspecified; I73.9 Peripheral vascular disease, unspecified; I25.9 Chronic ischemic heart disease, unspecified; I35.8 Other nonrheumatic aortic valve disorders; R94.31 Abnormal electrocardiogram [ECG] [EKG]; E11.9 Type 2 diabetes mellitus without complications; I10 Essential (primary) hypertension; E78.5 Hyperlipidemia, unspecified; F17.210 Nicotine dependence, cigarettes, uncomplicated; Z79.82 Long term (current) use of aspirin; Z79.899 Other long term (current) drug therapy; Z79.4 Long term (current) use of insulin; Z88.6 Allergy status to analgesic agent; Z88.5 Allergy status to narcotic agent; Z88.8 Allergy status to other drugs, medicaments and biological substances; Z88.0 Allergy status to penicillin; Z95.5 Presence of coronary angioplasty implant and graft
CPT/HCPCS: 94760; 93454; 80048; 85025; C9600; C9601; C1769 ×6; C1887 ×2; C1725 ×2; C1894 ×2; C1874 ×2; S4990; J2250; J2001; J3010; J1170; J0583; Q9967

== ENCOUNTER → 2019-06-23 | Outpatient (CLI) | payer MEDICARE, OTHER ==
[2019-06-23 15:12] LABS: HCT 42.9 % (34.0-46.0); HGB 13.8 gm/dL (11.4-16.0); MCH 27.4 pg (25.0-35.0); MCHC 32.1 g/dL (31.0-37.0); MCV 85.4 fL (80.0-100.0); Mean Platelet Volume 8.8; Platelet Count 202 k/uL (150-450); RBC 5.02 m/uL (3.80-5.40); RDW 13.8 % (11.5-15.5); WBC 13.1 k/uL (3.8-10.6)
[2019-06-23 15:20] LABS: Albumin 4.2 g/dL (3.5-5.0); Calcium 9.4 mg/dL (8.4-10.2); Potassium 5.2 mmol/L (3.5-5.1); Total Bilirubin 0.4 mg/dL (0.2-1.3); Total Protein 7.1 g/dL (6.3-8.2)
--- NOTE | 2019-06-24 08:02 | US ---
EXAMINATION TYPE: US kidneys/renal and bladder DATE OF EXAM: 06/23/2019 COMPARISON: CT dated 12/23/2018 CLINICAL HISTORY: N17.9 Acute Kidney Injury. Diabetic EXAM MEASUREMENTS: Right Kidney: 11.0 x 6.3 x 4.0 cm Left Kidney: 9.5 x 5.0 x 3.8 cm Post Void Residual Volume: no post void volume seen Right Kidney: scarring lower pole noted as hyperechoic renal tissue surrounding 2 lower pole cysts; larger lower pole simple cyst =1.9 x 1.5 x 1.6cm; hyperechoic lower pole focus noted = 0.5 x 0.4 x 0. 2cm. Left Kidney: No hydronephrosis or masses seen Bladder: wnl Bilateral Jets seen: not seen after 3 minute observation Normal Post Void Residual: yes There is no evidence for hydronephrosis at this point in time. The urinary bladder is anechoic. Jabier ateral ureteral jets are not seen. IMPRESSION: As seen on the CT of 12/23/2018 there are 2 right-sided renal cysts, multifocal cortical s carring, and a nonobstructing 5 mm calculus. No hydronephrosis of either kidney.
== END | disposition home or self-care (01) ==
LOC: RADUSWWP 14:58
PROVIDERS: ATTEND Internal Medicine
DX: N28.89 Other specified disorders of kidney and ureter (principal); N20.0 Calculus of kidney; D64.9 Anemia, unspecified
CPT/HCPCS: 36415; 76770; 80053; 85027

== ENCOUNTER 2019-07-16 10:50 | Day surgery (SDC) | payer MEDICARE, OTHER ==
[2019-07-14 18:17] VITALS: BMI 45.3
[~2019-07-16 10:50] MED LIST changes: +ASPIRIN 325 MG TAB PO ONE; -ASPIRIN 325 MG TAB PO STA; -ATORVASTATIN 80 MG TAB PO STA; -NITROGLYCERIN SL TABS 0.4 MG TAB SUBLINGUAL PRN; +SODIUM CHLORIDE 0.9% 1,000 ML in EMPTY BAG 1 BAG IV ONE
[2019-07-16 11:31] LABS: Glucose,Whole Blood 146 mg/dL (75-99)
[2019-07-16] MEDS ORDERED: SODIUM CHLORIDE 0.9% 1,000 ML IV ONE (12:19)
[2019-07-16] MEDS ORDERED: MIDAZOLAM 2 MG/2 ML VIAL IV ONE (13:15)
[2019-07-16] MEDS ORDERED: LIDOCAINE 1% INJ 10MG/ML (20 ML MDV) SQ ONE (13:16)
[2019-07-16] MEDS ORDERED: HYDROmorphone 1 MG/ML 1 ML SYRINGE IVP ONE (13:33)
[2019-07-16] MEDS ORDERED: IOPAMIDOL-250 100ML BTL INTRAARTER ONE (13:49)
[2019-07-16] MEDS ORDERED: SODIUM CHLORIDE 0.9% 1,000 ML IV SCH (14:00)
--- NOTE | 2019-07-16 14:12 | AN ---
ANGIOGRAPHY REPORT ABDOMINAL AORTOGRAM AND BILATERAL LOWER EXTREMITIES RUNOFF: DATE OF SERVICE: 07/16/2019 PERFORMING PHYSICIAN: Roman Tobin MD. PROCEDURE PERFORMED: 1. An abdominal aortogram. 2. Bilateral lower extremities runoff. INDICATION: This is a 64-year-old female patient with smoking, as well as diabetes, hypertension, and dyslipidemia, and coronary artery disease, was experiencing bilateral lower extremities intermittent claudication. Because of that, she was brought today to undergo an aortogram with runoff. APPROACH: Right common femoral artery. COMPLICATION: None. LEVEL OF SEDATION: Moderate with sedation length of 36 minutes. PROCEDURE DESCRIPTION: After obtaining AN informed consent, the patient was brought to the cardiac union laborer. The right common femoral artery was cannulated using micropuncture technique, the micropuncture wire passed easily, then I placed a 5-Guamanian sheath. I did an abdominal aortogram and bilateral lower extremities runoff using diluted contrast. The procedure was completed without any complication. SELECTIVE CORONARY PERIPHERAL ANGIOGRAM: 1. The aorta appeared to have mild disease only. 2. COMMON ILIAC ARTERIES: The ostial of the right common iliac artery appeared to have intermediate to severe lesion and the left common iliac artery appeared to have mild disease only. 3. INTERNAL ILIAC ARTERIES: Both are patent. 4. EXTERNAL ILIAC ARTERIES: The right external iliac artery appeared to have mild disease only and the left external iliac artery appeared to have critical lesion. 5. COMMON FEMORAL ARTERIES: Both appear to have mild disease only. 6. PROFUNDA: Both are patent. 7. SFA: The right SFA appeared to have mild to moderate disease in the midportion and the left SFA has 2 critical lesions in the proximal and mid portions. 8. POPLITEAL: Both appear to have mild disease only. 9. BELOW THE KNEE: Three-vessel runoff below the knee bilaterally. CONCLUSION: 1. Intermediate to severe disease involving the right common iliac artery in its ostium. 2. Critical disease involving the left external iliac artery. 3. Intermediate to severe right SFA disease. 4. Critical left SFA disease. POSTPROCEDURE MANAGEMENT: The patient will be scheduled to undergo a METAL FURNITURE REPAIRER of the left external iliac and left SFA and I would assess the gradient across the right common iliac artery. MMODL / IJN: [id number] /
--- NOTE | 2019-07-16 15:33 | IR ---
EXAMINATION TYPE: IR angio abdominal w runoff DATE OF EXAM: 07/16/2019 COMPARISON: NONE HISTORY: Fluoroscopy time. Fluoroscopy was provided to the referring clinician.
[2019-07-16] MEDS ORDERED: NICOTINE 14MG/24HR PATCH TRANSDERM STA (15:53)
[2019-07-16] MEDS ORDERED: ACETAMINOPHEN TAB 325 MG TAB PO STA (15:53)
[2019-07-16 19:37] VITALS: BP 168/83; PULSE 52; TEMP 98.3
[2019-07-16 22:27] VITALS: RESP 17
== END 2019-07-16 21:30 ==
LOC: CATHCVL 10:50 → 1SOBS 14:33 → CATHCVL 21:30
PROVIDERS: ATTEND Internal Medicine Interventional Cardiology
DX: E11.51 Type 2 diabetes mellitus with diabetic peripheral angiopathy without gangrene (principal); I70.213 Atherosclerosis of native arteries of extremities with intermittent claudication, bilateral legs; Z79.4 Long term (current) use of insulin; I25.10 Atherosclerotic heart disease of native coronary artery without angina pectoris; I12.9 Hypertensive chronic kidney disease with stage 1 through stage 4 chronic kidney disease, or unspecified chronic kidney disease; E11.22 Type 2 diabetes mellitus with diabetic chronic kidney disease; N18.9 Chronic kidney disease, unspecified; Z87.891 Personal history of nicotine dependence; E78.5 Hyperlipidemia, unspecified; Z95.5 Presence of coronary angioplasty implant and graft; Z79.02 Long term (current) use of antithrombotics/antiplatelets; Z79.82 Long term (current) use of aspirin; Z79.899 Other long term (current) drug therapy; Z88.6 Allergy status to analgesic agent; Z88.5 Allergy status to narcotic agent; Z88.0 Allergy status to penicillin; Z88.8 Allergy status to other drugs, medicaments and biological substances
CPT/HCPCS: 36200; 75625; 75716; C1769 ×7; C1894; C1887; S4990; J2250; J2001; J1170; Q9966

== ENCOUNTER 2019-09-08 07:34 | Day surgery (SDC) | payer MEDICARE, OTHER ==
[2019-08-27 12:37] VITALS: BMI 46.0
[~2019-09-08 07:34] MED LIST changes: -ASPIRIN 325 MG TAB PO ONE; +ASPIRIN 325 MG TAB PO STA
[2019-09-08] MEDS ORDERED: LISINOPRIL 5 MG TAB PO STA (08:03)
[2019-09-08 08:08] LABS: Glucose,Whole Blood 133 mg/dL (75-99)
[2019-09-08 08:09] LABS: Basophils # (A) 0.1 k/uL (0-0.2); Basophils % (A) 1 %; Eosinophils # (A) 0.3 k/uL (0-0.7); Eosinophils % (A) 3 %; HGB 14.3 gm/dL (11.4-16.0); Lymphocytes # (A) 3.2 k/uL (1.0-4.8); Lymphocytes % (A) 27 %; MCH 27.4 pg (25.0-35.0); MCHC 31.8 g/dL (31.0-37.0); MCV 86.4 fL (80.0-100.0); Mean Platelet Volume 8.6; Monocytes # (A) 0.7 k/uL (0-1.0); Monocytes % (A) 6 %; Neutrophils # (A) 7.1 k/uL (1.3-7.7); Neutrophils % (A) 61 %; Platelet Count 164 k/uL (150-450); RBC 5.21 m/uL (3.80-5.40); RDW 14.6 % (11.5-15.5); WBC 11.6 k/uL (3.8-10.6)
[2019-09-08 08:15] LABS: Calcium 9.2 mg/dL (8.4-10.2)
[2019-09-08] MEDS ORDERED: CLOPIDOGREL 75 MG TAB ONE (08:17)
[2019-09-08 08:21] LABS: Potassium 5.1 mmol/L (3.5-5.1)
[2019-09-08] MEDS ORDERED: LIDOCAINE 1% INJ 10MG/ML (20 ML MDV) SQ ONE (09:59)
[2019-09-08] MEDS ORDERED: MIDAZOLAM 2 MG/2 ML VIAL IVP ONE (10:00)
[2019-09-08] MEDS ORDERED: HEPARIN SODIUM 1,000 UN/ML (10ML VL) IV ONE (10:06)
[2019-09-08] MEDS ORDERED: HYDROmorphone 1 MG/ML 1 ML SYRINGE IVP ONE (10:55)
[2019-09-08] MEDS ORDERED: ONDANSETRON 4 MG/2 ML VIAL IVP ONE (10:56)
[2019-09-08] MEDS ORDERED: NITROGLYCERIN SL TABS 0.4 MG TAB SUBLINGUAL PRN (11:14)
[2019-09-08] MEDS ORDERED: LORATADINE 10 MG TAB PO PRN (11:14)
[2019-09-08] MEDS ORDERED: SODIUM CHLORIDE 0.9% 1,000 ML in EMPTY BAG 1 BAG IV SCH (11:15)
--- NOTE | 2019-09-08 11:28 | IR ---
EXAMINATION TYPE: IR [place] captain femoral popliteal DATE OF EXAM: 09/08/2019 COMPARISON: NONE HISTORY: Fluoroscopy time. Fluoroscopy was provided to the referring clinician.
[2019-09-08] MEDS ORDERED: IOPAMIDOL-300 50ML BTL INJ ONE (11:47)
[2019-09-08] MEDS ORDERED: CLOPIDOGREL 75 MG TAB PO ONE (11:47)
[2019-09-08 11:50] LABS: Glucose,Whole Blood 128 mg/dL (75-99)
[2019-09-08] MEDS ORDERED: ATROPINE SULFATE 0.1 MG/ML 10ML SYRINGE ONE (14:55)
--- NOTE | 2019-09-08 15:22 | P.PCN ---
Date of Procedure: 09/08/19 Operative Findings: PERCUTANEOUS PERIPHERAL ARTERIAL INTERVENTION Performing physician Roman Tobin M.D. Procedure performed 1. Selective left external iliac artery angiogram and left SFA angiogram 2. Intravascular ultrasound (IVUS) of the left external iliac artery, left SFA, and right common iliac artery 3. Successful stenting of the left external iliac artery using 8.0 x 120 mm [place] PTX stent with an excellent angiographic results 4. An atherectomy of the left SFA using the Hawk 1 device with the extraction of significant plaque 5. Successful balloon angioplasty of the left SFA using 5 mm x 80 mm Chocolate balloon with an excellent angiographic results Indication This is a very pleasant 64-year-old female patient was coronary artery disease, hypertension, dyslipidemia, and smoking, was experiencing bilateral lower extremities intermittent claudication. She underwent an angiogram and that revealed critical disease involving the left external iliac artery as well as left SFA. She was brought today to undergo a MEDIA INTERN of the left leg. Approach The right common femoral artery Complication None Level of sedation Moderate with a sedation length of 63 minutes Procedure description After obtaining an informed consent the patient was brought to the cardiac tender labor. The right common femoral artery was cannulated using micropuncture technique, the micropuncture wire passed easily then I placed a 6-Welsh sheath 11 cm of the right common femoral artery. At that point I did selective the left SFA using A 5 glide advantage wire with a backup support of 5-Welsh rim catheter. Subsequently I did exchange my 11 cm 6-Welsh sheath into 70 cm 6-Welsh sheath using 035 glide advantage wire. The tip of the sheath was positioned in the left common iliac artery. After that I did balloon angioplasty of the left external iliac artery using 5 mm by 18 mm balloon. Subsequently I did advanced a long sheath across the left external iliac artery to the left common femoral artery. I did wire the left SFA using [address] wire. After that I did intravascular ultrasound of the left SFA which showed 2 lesions one in the proximal and one in the midportion. The diameter of the SFA was about 5.5 mm. I did atherectomy of the left SFA using the Hawk device with the extraction of significant plaque. After that I did balloon angioplasty using 5 mm chocolate balloon. The following angiogram showed excellent angiographic results and the procedure was completed without any complications on the left SFA. Subsequently I did pull the sheath all the way to the left common iliac artery were I did again intravascular ultrasound of the left external iliac ar gladys to assess a diameter which was about 7 mm diameter. Because of that I deployed a 8 mm x 120 mm self-expandable stent which was positioned under fluoroscopy guidance and deployed under fluoroscopy guidance. A postoperative the stent using 7 mm balloon. I did an angiogram which revealed excellent angiographic results. After that the sheath was pulled to the right common iliac artery were I did intravascular ultrasound of the right common iliac artery which showed an area stenosis of 80%. I did after that exchange my long sheath into short sheath using 035 wire. I did after that selective right common femoral artery angiogram. The procedure was completed without any complications Postprocedure management 1. Dual antiplatelet therapy 2. Risk factors modifications 3. Follow-up with the patient
[2019-09-08 16:21] LABS: Glucose,Whole Blood 124 mg/dL (75-99)
[2019-09-08] MEDS: ACETAMINOPHEN TAB 325 MG TAB PO PRN (17:09)
[2019-09-08] MEDS: GABAPENTIN 300 MG CAP PO SCH ×2 (17:09→21:05)
[2019-09-08] MEDS: DICYCLOMINE 20 MG TAB PO SCH ×2 (17:10→21:05)
[2019-09-08] MEDS: ALPRAZolam 0.25 MG TAB PO PRN (17:11)
[2019-09-08] MEDS ORDERED: INSULIN DETEMIR (LEVEMIR) 100 UNIT/ML SYR SQ SCH (18:30)
[2019-09-08 20:22] LABS: Glucose,Whole Blood 132 mg/dL (75-99)
[2019-09-08] MEDS ORDERED: NON FORMULARY DRUG (Simvastatin 40 MG) PO SCH (21:00)
[2019-09-08] MEDS ORDERED: amLODIPine 10 MG TAB PO SCH (21:00)
[2019-09-09] MEDS: ACETAMINOPHEN TAB 325 MG TAB PO PRN (03:05)
[2019-09-09] MEDS: ALPRAZolam 0.25 MG TAB PO PRN (03:05)
[2019-09-09 04:48] VITALS: TEMP 98.5
[2019-09-09 06:04] LABS: Glucose,Whole Blood 112 mg/dL (75-99)
[2019-09-09 06:37] LABS: Basophils # (A) 0.1 k/uL (0-0.2); Basophils % (A) 1 %; Eosinophils # (A) 0.3 k/uL (0-0.7); Eosinophils % (A) 2 %; HCT 43.2 % (34.0-46.0); HGB 13.1 gm/dL (11.4-16.0); Hypochromasia Slight; Lymphocytes # (A) 2.6 k/uL (1.0-4.8); Lymphocytes % (A) 22 %; MCH 26.7 pg (25.0-35.0); MCHC 30.3 g/dL (31.0-37.0); Mean Platelet Volume 9.1; Monocytes # (A) 0.9 k/uL (0-1.0); Monocytes % (A) 7 %; Neutrophils # (A) 8.1 k/uL (1.3-7.7); Neutrophils % (A) 67 %; Platelet Count 155 k/uL (150-450); RDW 14.7 % (11.5-15.5); WBC 12.1 k/uL (3.8-10.6)
[2019-09-09 07:05] LABS: Calcium 8.8 mg/dL (8.4-10.2); Potassium 4.9 mmol/L (3.5-5.1)
[2019-09-09] MEDS ORDERED: GLIMEPIRIDE 1 MG TAB PO SCH (07:30)
--- NOTE | 2019-09-09 08:43 | P.DS ---
Providers Date of admission: September 072019 Attending physician: Roman Tobin Primary care physician: Luiza Mclaughlin [facility] Course: This is a very pleasant 64-year-old female patient who was admitted to the hospital yesterday and underwent successful percutaneous peripheral intervention of the left SFA and left external iliac arteries with an excellent angiographic results and without any complication from right groin approach. She was seen and examined this morning. The right groin is soft and nontender and without any bruises. The patient is going to be discharged home on dual antiplatelet therapy and I'll follow-up with the patient next week in the office Plan - Discharge Summary Discharge Rx Participant: No New Discharge Prescriptions: Continue amLODIPine [Norvasc] 10 mg PO HS Gabapentin [Neurontin] 600 mg PO TID Insulin Glargine,Hum.rec.anlog [Toujeo Solostar] 20 units SQ PC-SUPPER Glimepiride [Amaryl] 1 mg PO AC-BRKFST Dicyclomine [Bentyl] 20 mg PO TID Atorvastatin [Lipitor] 20 mg PO DAILY Sertraline [Zoloft] 200 mg PO DAILY Acetaminophen Tab [Tylenol] 650 mg PO DAILY PRN PRN Reason: Pain Isosorbide Mononitrate [Isosorbide Mononitrate ER] 30 mg PO DAILY Cetirizine HCl 10 mg PO DAILY PRN PRN Reason: Itching Aspirin [Adult Low Dose Aspirin EC] 81 mg PO DAILY Nitroglycerin Sl Tabs [Nitrostat] 0.4 mg SUBLINGUAL Q5M PRN #25 tab PRN Reason: Chest Pain Lisinopril [Zestril] 5 mg PO DAILY Simvastatin [Zocor] 40 mg PO HS Clopidogrel [Plavix] 75 mg PO DAILY Discharge Medication List Gabapentin [Neurontin] 600 mg PO TID 10/11/15 [History] Insulin Glargine,Hum.rec.anlog [Toujeo Solostar] 20 units SQ PC-SUPPER 10/11/15 [History] amLODIPine [Norvasc] 10 mg PO HS 10/11/15 [History] Glimepiride [Amaryl] 1 mg PO AC-BRKFST 02/13/18 [History] Dicyclomine [Bentyl] 20 mg PO TID 12/23/18 [History] Acetaminophen Tab [Tylenol] 650 mg PO DAILY PRN 03/18/19 [History] Aspirin [Adult Low Dose Aspirin EC] 81 mg PO DAILY 03/18/19 [History] Atorvastatin [Lipitor] 20 mg PO DAILY 03/18/19 [History] Cetirizine HCl 10 mg PO DAILY PRN 03/18/19 [History] Isosorbide Mononitrate [Isosorbide Mononitrate ER] 30 mg PO DAILY 03/18/19 [History] Sertraline [Zoloft] 200 mg PO DAILY 03/18/19 [History] Nitroglycerin Sl Tabs [Nitrostat] 0.4 mg SUBLINGUAL Q5M PRN #25 tab 03/23/19 [Rx] Clopidogrel [Plavix] 75 mg PO DAILY 08/27/19 [History] Lisinopril [Zestril] 5 mg PO DAILY 08/27/19 [History] Simvastatin [Zocor] 40 mg PO HS 08/27/19 [History] Follow up Appointment(s)/Referral(s): Roman Tobin MD [STAFF PHYSICIAN] - 1 Week
[2019-09-09] MEDS ORDERED: ISOSORBIDE MONONITRATE ER 30 MG TAB.ER.24H PO SCH (09:00)
[2019-09-09] MEDS ORDERED: ATORVASTATIN 20 MG TAB PO SCH (09:00)
[2019-09-09] MEDS ORDERED: CLOPIDOGREL 75 MG TAB PO SCH (09:00)
[2019-09-09] MEDS ORDERED: ASPIRIN 81 MG PO SCH (09:00)
[2019-09-09] MEDS ORDERED: SERTRALINE 100 MG TAB PO SCH (09:00)
[2019-09-09] MEDS ORDERED: LISINOPRIL 5 MG TAB PO SCH (09:00)
[2019-09-09] MEDS: GABAPENTIN 300 MG CAP PO SCH (09:48)
[2019-09-09] MEDS: DICYCLOMINE 20 MG TAB PO SCH (09:50)
[2019-09-09 10:15] VITALS: BP 144/65; PULSE 64; RESP 16
== END 2019-09-09 10:18 ==
LOC: CATHCVL 07:34 → 3SCARD 11:05 → CATHCVL 09-09 10:18
PROVIDERS: ATTEND Internal Medicine Interventional Cardiology
DX: I70.212 Atherosclerosis of native arteries of extremities with intermittent claudication, left leg (principal); I25.10 Atherosclerotic heart disease of native coronary artery without angina pectoris; I12.9 Hypertensive chronic kidney disease with stage 1 through stage 4 chronic kidney disease, or unspecified chronic kidney disease; E11.22 Type 2 diabetes mellitus with diabetic chronic kidney disease; N18.9 Chronic kidney disease, unspecified; E78.5 Hyperlipidemia, unspecified; G57.91 Unspecified mononeuropathy of right lower limb; M79.604 Pain in right leg; F17.210 Nicotine dependence, cigarettes, uncomplicated; E66.9 Obesity, unspecified; Z68.42 Body mass index [BMI] 45.0-49.9, adult; Z95.5 Presence of coronary angioplasty implant and graft; Z79.899 Other long term (current) drug therapy; Z79.4 Long term (current) use of insulin; Z79.82 Long term (current) use of aspirin; Z79.02 Long term (current) use of antithrombotics/antiplatelets; Z88.6 Allergy status to analgesic agent; Z88.5 Allergy status to narcotic agent; Z88.8 Allergy status to other drugs, medicaments and biological substances; Z88.0 Allergy status to penicillin; Z91.048 Other nonmedicinal substance allergy status
CPT/HCPCS: 37221; 37227; 85347; 37252; 37253; 80048 ×2; 85025 ×2; 87635; C1894; C1725 ×3; C1769 ×4; C1714; C1753; C1874; J2250; J2405; J2001; J1644; J1170; Q9967

== ENCOUNTER 2019-12-15 06:15 | Day surgery (SDC) | payer MEDICARE, OTHER ==
[2019-12-10 15:47] VITALS: BMI 45.3
[~2019-12-15 06:15] MED LIST changes: +ALPRAZolam 0.25 MG TAB PO PRN; -ASPIRIN 325 MG TAB PO STA
[2019-12-15] MEDS ORDERED: lisinopriL 5 MG TAB PO STA (06:47)
[2019-12-15] MEDS ORDERED: ISOSORBIDE MONONITRATE ER 30 MG TAB.ER.24H PO STA (06:48)
[2019-12-15] MEDS ORDERED: ASPIRIN 325 MG TAB PO ONE (07:00)
[2019-12-15] MEDS ORDERED: SODIUM CHLORIDE 0.9% 1,000 ML IV ONE (07:05)
[2019-12-15] MEDS ORDERED: CLOPIDOGREL 75 MG TAB ONE (07:10)
[2019-12-15 07:14] LABS: Glucose,Whole Blood 163 mg/dL (75-99)
[2019-12-15 07:37] LABS: Basophils # (A) 0.1 k/uL (0-0.2); Basophils % (A) 1 %; Eosinophils # (A) 0.3 k/uL (0-0.7); Eosinophils % (A) 3 %; Lymphocytes # (A) 3.3 k/uL (1.0-4.8); Lymphocytes % (A) 27 %; MCH 27.5 pg (25.0-35.0); MCHC 31.9 g/dL (31.0-37.0); MCV 86.2 fL (80.0-100.0); Monocytes # (A) 0.8 k/uL (0-1.0); Monocytes % (A) 6 %; Neutrophils # (A) 7.7 k/uL (1.3-7.7); Neutrophils % (A) 63 %; Platelet Count 172 k/uL (150-450); RBC 5.11 m/uL (3.80-5.40); RDW 14.7 % (11.5-15.5); WBC 12.3 k/uL (3.8-10.6)
[2019-12-15 07:38] LABS: Calcium 8.8 mg/dL (8.4-10.2); Potassium 4.4 mmol/L (3.5-5.1)
[2019-12-15] MEDS ORDERED: MIDAZOLAM 2 MG/2 ML VIAL IV ONE ×2 (07:55→08:33)
[2019-12-15] MEDS ORDERED: LIDOCAINE 1% INJ 10MG/ML (20 ML MDV) SQ ONE ×2 (07:58→08:33)
[2019-12-15] MEDS: HYDROmorphone 1 MG/ML 1 ML SYRINGE IVP ONE ×2 (08:05→08:14)
[2019-12-15] MEDS ORDERED: fentaNYL (PF) 50 MCG/ML 2 ML AMP IV ONE (08:25)
[2019-12-15] MEDS ORDERED: VERAPAMIL SYRINGE (5 MG/10 ML) INTRAARTER ONE (08:33)
[2019-12-15] MEDS ORDERED: HEPARIN SODIUM 1,000 UN/ML (10ML VL) IV ONE (08:35)
[2019-12-15] MEDS ORDERED: MIDAZOLAM 2 MG/2 ML VIAL IVP ONE (08:36)
[2019-12-15] MEDS ORDERED: HYDROmorphone 1 MG/ML 1 ML SYRINGE IVP ONE (08:51)
[2019-12-15] MEDS ORDERED: NITROGLYCERIN SL TABS 0.4 MG TAB SUBLINGUAL PRN (09:43)
[2019-12-15] MEDS ORDERED: LORATADINE 10 MG TAB PO PRN (09:43)
[2019-12-15] MEDS ORDERED: DICYCLOMINE 20 MG TAB PO PRN (09:43)
[2019-12-15] MEDS ORDERED: SODIUM CHLORIDE 0.9% 1,000 ML in EMPTY BAG 1 BAG IV SCH (09:45)
[2019-12-15] MEDS ORDERED: IOPAMIDOL-250 100ML BTL INTRAARTER ONE (09:49)
[2019-12-15] MEDS: ACETAMINOPHEN TAB 325 MG TAB PO PRN (12:39)
[2019-12-15] MEDS ORDERED: HYDROmorphone 1 MG/ML 1 ML SYRINGE ONE (14:22)
[2019-12-15] MEDS: HYDROmorphone 1 MG/ML 1 ML SYRINGE IVP PRN ×2 (14:24→18:20)
[2019-12-15 17:05] LABS: Glucose,Whole Blood 116 mg/dL (75-99)
[2019-12-15] MEDS: GABAPENTIN 300 MG CAP PO SCH ×2 (17:05→20:26)
[2019-12-15] MEDS ORDERED: INSULIN DETEMIR (LEVEMIR) 100 UNIT/ML SYR SQ SCH (18:30)
[2019-12-15 20:08] LABS: Glucose,Whole Blood 236 mg/dL (75-99)
[2019-12-15] MEDS: INSULIN ASPART (NovoLOG) 100 UNIT/ML VIAL SQ SCH (20:27)
[2019-12-15] MEDS ORDERED: ATORVASTATIN 20 MG TAB PO SCH (21:00)
[2019-12-15] MEDS ORDERED: amLODIPine 10 MG TAB PO SCH (21:00)
--- NOTE | 2019-12-15 23:05 | PCN ---
PROCEDURE NOTE DATE OF SERVICE: 12/15/2019 PERFORMING PHYSICIAN: Roman Tobin M.D. PROCEDURES PERFORMED: 1. Successful kissing stents of the right and left common iliac arteries using an 8.0 x 39 mm balloon expandable stent for the right and an 8.0 x 27 mm balloon expandable stent for the left with excellent angiographic results. 2. Successful stenting of the right external iliac artery using an 8.0 x 80 mm self- expandable stent with excellent angiographic results. 3. Intravascular ultrasound (IVUS) of the aorta, right common iliac artery and right external iliac artery. 4. Gradient measurement across the right external iliac artery. 5. Angiogram of the bilateral common iliac arteries as well as bilateral external iliac arteries. 6. Selective right common femoral artery angiogram. INDICATION: This is a 64-year-old female patient who was experiencing right lower extremity intermittent claudication and was found to have severe disease involving the right common iliac artery and intermediate to severe disease involving the right external iliac artery. She was brought today to undergo an intervention. APPROACH: Right common femoral artery and right radial artery. COMPLICATIONS: None. LEVEL OF SEDATION: Moderate, with sedation length of 104 minutes. PROCEDURE DESCRIPTION: After obtaining informed consent, the patient was brought to the cardiac can labeler. The right common femoral artery was cannulated using micropuncture technique. The micropuncture wire passed easily. Then I placed a 23 cm 6-Haitian BRITE TIP sheath at the right groin. The sheath was advanced under fluoroscopic guidance all the way to the ostial right common iliac artery. Attempting to access the left common femoral artery was unsuccessful in spite of using an ultrasound because the patient does have thick tissue above the artery and she was overweight. Because of that I decided to access the right radial artery. I accessed the right radial artery using micropuncture technique. The micropuncture wire passed easily. Then initially I placed a 6-Haitian 11 cm sheath at the right radial artery and I gave the patient 2 mg of verapamil IA. Subsequently I did exchange my 11 cm sheath for a long 110 cm Terumo sheath using an 0.035 Supercore wire. The sheath was advanced all the way to the distal abdominal aorta and subsequently to the left common iliac artery over the 0.035 Supercore wire. At that point, anticoagulation was initiated using heparin and the patient was given a weight-based heparin with continuous ACT monitoring throughout the procedure. Subsequently I did place an 0.014 wire in the right common iliac artery. I did intravascular ultrasound and that revealed the diameter of the right iliac artery about 8-9 mm and diameter of the aorta about 15 mm. Because of that I decided to place two 8 mm stents in the right and left common iliac arteries in a kissing technique. I prepped two balloon-expandable stents. The first stent, which was on the right side, was 8 x 39 mm and the second stent was 8 x 27 mm, which was on the left side. Both stents were advanced over an 0.035 Supercore wire to the right and left common iliac arteries under fluoroscopic guidance. Multiple injections were obtained to assess the position of the stents. Subsequently I deployed the stent in a kissing technique under fluoroscopic guidance. The following angiogram showed excellent angiographic results for both stents. There was intermediate to severe lesion involving the right external iliac artery. I decided to do a pressure gradient across the lesion. Before I did that, I advanced the sheath across the lesion. The sheath was a 23 cm 6-Haitian BRITE TIP sheath. I did a gradient measurement across the lesion and that was about 70 mmHg, which is significant. I decided to stent that lesion. Initially I did balloon angioplasty. That was performed using a 6 x 60 mm balloon. After that I deployed an 8 x 18 mm self- expandable stent, an Everflex, where the stent was positioned under fluoroscopic guidance and deployed under fluoroscopic guidance. I post-dilated the stent using a 7 mm balloon. The final angiogram showed excellent angiographic results and the procedure was completed without any complication. I did remove the right radial sheath completely and I placed a TR band. I did exchange after that the long 23 cm sheath for an 11 cm sheath using an 0.035 wire. I did finally selective right common femoral artery angiogram. The procedure was completed without any complication. POST-PROCEDURE MANAGEMENT: 1. Dual anti-platelet therapy. 2. Risk factor modifications. 3. Follow up with the patient. 4. The patient is going to stay overnight. MMODL / IJN: [id number] /
[2019-12-16 05:50] LABS: Glucose,Whole Blood 140 mg/dL (75-99)
[2019-12-16 05:55] VITALS: RESP 16; TEMP 98.3
[2019-12-16] MEDS: INSULIN ASPART (NovoLOG) 100 UNIT/ML VIAL SQ SCH (06:08)
[2019-12-16] MEDS: ACETAMINOPHEN TAB 325 MG TAB PO PRN (06:12)
[2019-12-16 07:09] LABS: Basophils # (A) 0.1 k/uL (0-0.2); Basophils % (A) 1 %; Eosinophils # (A) 0.2 k/uL (0-0.7); Eosinophils % (A) 2 %; HCT 40.9 % (34.0-46.0); HGB 12.4 gm/dL (11.4-16.0); Hypochromasia Slight; Lymphocytes # (A) 2.2 k/uL (1.0-4.8); Lymphocytes % (A) 23 %; MCH 26.7 pg (25.0-35.0); MCHC 30.5 g/dL (31.0-37.0); MCV 87.5 fL (80.0-100.0); Mean Platelet Volume 9.1; Monocytes # (A) 0.6 k/uL (0-1.0); Monocytes % (A) 6 %; Neutrophils # (A) 6.5 k/uL (1.3-7.7); Neutrophils % (A) 67 %; Platelet Count 140 k/uL (150-450); RBC 4.67 m/uL (3.80-5.40); RDW 14.9 % (11.5-15.5); WBC 9.7 k/uL (3.8-10.6)
[2019-12-16 07:25] LABS: Calcium 8.5 mg/dL (8.4-10.2); Potassium 4.9 mmol/L (3.5-5.1)
[2019-12-16] MEDS ORDERED: GLIMEPIRIDE 1 MG TAB PO SCH (07:30)
[2019-12-16] MEDS: GABAPENTIN 300 MG CAP PO SCH (08:26)
--- NOTE | 2019-12-16 08:50 | IR ---
EXAMINATION TYPE: IR stent intravas non coronary DATE OF EXAM: 12/15/2019 CLINICAL HISTORY: Peripheral vascular disease. TECHNIQUE: Fluoroscopy. COMPARISON: None. FINDINGS: Fluoroscopic guidance was provided during angiogram with stent insertion procedure perform ed by Dr. Tobin. A total of 18.6 minutes of fluoroscopic time was utilized during the procedure and m ultiple cine runs are acquired. Please refer to procedure note for further details as I was not prese nt nor performed procedure. IMPRESSION: As Above.
[2019-12-16] MEDS ORDERED: CLOPIDOGREL 75 MG TAB PO SCH (09:00)
[2019-12-16] MEDS ORDERED: SERTRALINE 100 MG TAB PO SCH (09:00)
[2019-12-16] MEDS ORDERED: ASPIRIN 325 MG TAB PO SCH (09:00)
[2019-12-16] MEDS ORDERED: lisinopriL 5 MG TAB PO SCH (09:00)
[2019-12-16] MEDS ORDERED: ISOSORBIDE MONONITRATE ER 30 MG TAB.ER.24H PO SCH (09:00)
[2019-12-16 09:43] VITALS: BP 167/72; PULSE 60
--- NOTE | 2019-12-16 10:58 | P.DS ---
Providers Attending physician: Roman Tobin Primary care physician: [facility] Course: This is a 64-year-old female patient was underwent yesterday successful kissing stents of the right and left common iliac arteries along with a stenting of the right external iliac artery. She was seen today. She is asymptomatic. The right groin is soft and nontender and without any bruises as well as the right radial artery. The patient is going to discharge home on dual antiplatelet therapy and statin and I'll follow-up with her in the office Plan - Discharge Summary Discharge Rx Participant: Yes New Discharge Prescriptions: Continue amLODIPine [Norvasc] 10 mg PO HS Gabapentin [Neurontin] 600 mg PO TID Insulin Glargine,Hum.rec.anlog [Toujeo Solostar] 20 units SQ PC-SUPPER Glimepiride [Amaryl] 1 mg PO AC-BRKFST Dicyclomine [Bentyl] 20 mg PO TID PRN PRN Reason: ABDOMOMINAL PAIN Sertraline [Zoloft] 200 mg PO DAILY Acetaminophen Tab [Tylenol] 650 mg PO DAILY PRN PRN Reason: Pain Isosorbide Mononitrate [Isosorbide Mononitrate ER] 30 mg PO DAILY Cetirizine HCl 10 mg PO DAILY PRN PRN Reason: Itching Aspirin [Adult Low Dose Aspirin EC] 325 mg PO DAILY Nitroglycerin Sl Tabs [Nitrostat] 0.4 mg SUBLINGUAL Q5M PRN #25 tab PRN Reason: Chest Pain lisinopriL [Zestril] 5 mg PO DAILY Simvastatin [Zocor] 40 mg PO HS Clopidogrel [Plavix] 75 mg PO DAILY Discharge Medication List Gabapentin [Neurontin] 600 mg PO TID 10/11/15 [History] Insulin Glargine,Hum.rec.anlog [Toujeo Solostar] 20 units SQ PC-SUPPER 10/11/15 [History] amLODIPine [Norvasc] 10 mg PO HS 10/11/15 [History] Glimepiride [Amaryl] 1 mg PO AC-BRKFST 02/13/18 [History] Dicyclomine [Bentyl] 20 mg PO TID PRN 12/23/18 [History] Acetaminophen Tab [Tylenol] 650 mg PO DAILY PRN 03/18/19 [History] Aspirin [Adult Low Dose Aspirin EC] 325 mg PO DAILY 03/18/19 [History] Cetirizine HCl 10 mg PO DAILY PRN 03/18/19 [History] Isosorbide Mononitrate [Isosorbide Mononitrate ER] 30 mg PO DAILY 03/18/19 [History] Sertraline [Zoloft] 200 mg PO DAILY 03/18/19 [History] Nitroglycerin Sl Tabs [Nitrostat] 0.4 mg SUBLINGUAL Q5M PRN #25 tab 03/23/19 [Rx] Clopidogrel [Plavix] 75 mg PO DAILY 08/27/19 [History] Simvastatin [Zocor] 40 mg PO HS 08/27/19 [History] lisinopriL [Zestril] 5 mg PO DAILY 08/27/19 [History] Follow up Appointment(s)/Referral(s): Roman Tobin MD [STAFF PHYSICIAN] - 12/24/19 4:45 pm
[2019-12-16 12:16] LABS: Glucose,Whole Blood 104 mg/dL (75-99)
== END 2019-12-16 13:34 | disposition home or self-care (01) ==
LOC: CATHCVL 06:15 → 3SCARD 09:45 → CATHCVL 12-16 13:34
PROVIDERS: ATTEND Internal Medicine Interventional Cardiology
DX: I70.8 Atherosclerosis of other arteries (principal); I73.9 Peripheral vascular disease, unspecified; I10 Essential (primary) hypertension; I25.10 Atherosclerotic heart disease of native coronary artery without angina pectoris; E11.9 Type 2 diabetes mellitus without complications; E66.9 Obesity, unspecified; E78.5 Hyperlipidemia, unspecified; F17.210 Nicotine dependence, cigarettes, uncomplicated; Z79.82 Long term (current) use of aspirin; Z79.4 Long term (current) use of insulin; Z79.02 Long term (current) use of antithrombotics/antiplatelets; Z79.899 Other long term (current) drug therapy; Z88.0 Allergy status to penicillin; Z88.5 Allergy status to narcotic agent; Z88.8 Allergy status to other drugs, medicaments and biological substances; Z68.42 Body mass index [BMI] 45.0-49.9, adult
CPT/HCPCS: 37221; 37223; 85347; 37252; 50433; 80048 ×2; 85025 ×2; C1769 ×8; C1725 ×2; C1876 ×2; C1894 ×2; C1753; C1887; J2250; J2001; J3010; J1644; J1170; Q9966

== ENCOUNTER 2020-04-10 17:31 | Inpatient (IN) | payer MEDICARE, OTHER ==
[2020-04-10] MEDS ORDERED: ACETAMINOPHEN TAB 500 MG TAB PO STA (19:09)
[2020-04-10] MEDS ORDERED: SODIUM CHLORIDE 0.9% 500 ML 500 ML IV ONE (19:12)
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
[2020-04-10 19:31] LABS: Basophils # (A) 0.2 k/uL (0-0.2); Basophils % (A) 2 %; Eosinophils % (A) 0 %; HCT 41.9 % (34.0-46.0); Lymphocytes # (A) 1.3 k/uL (1.0-4.8); Lymphocytes % (A) 19 %; MCH 26.7 pg (25.0-35.0); MCHC 33.4 g/dL (31.0-37.0); MCV 79.9 fL (80.0-100.0); Mean Platelet Volume 9.9; Monocytes # (A) 0.7 k/uL (0-1.0); Monocytes % (A) 10 %; Neutrophils # (A) 4.6 k/uL (1.3-7.7); Neutrophils % (A) 68 %; Platelet Count 130 k/uL (150-450); RBC 5.24 m/uL (3.80-5.40); RDW 14.4 % (11.5-15.5); WBC 6.8 k/uL (3.8-10.6)
[2020-04-10 19:43] LABS: Partial Thromboplastin Time 25.7 sec (22.0-30.0); Prothrombin Time 10.7 sec (9.0-12.0)
[2020-04-10 19:45] LABS: Calcium 9.1 mg/dL (8.4-10.2); Total Bilirubin 0.7 mg/dL (0.2-1.3); Total Protein 7.4 g/dL (6.3-8.2)
--- NOTE | 2020-04-10 20:04 | XR ---
EXAMINATION TYPE: XR chest 2V DATE OF EXAM: 04/10/2020 COMPARISON: Prior chest x-ray dated 12/23/2018 HISTORY: Altered mental status TECHNIQUE: Frontal and lateral views of the chest are obtained. FINDINGS: There is bilateral patchy airspace disease. Lung volumes are low. There is no pneumothorax or pleural effusion.. The cardiac silhouette size is prominent but likely stable accounting for dif ferences in technique. Thoracic cord stimulator is present. The osseous structures are intact. IMPRESSION: Correlate for pneumonia, edema. The prominent cardiac size may be technical. Follow-up r ecommended.
[2020-04-10] MEDS ORDERED: dexAMETHasone 2 MG TAB PO STA (20:14)
[2020-04-10] MEDS ORDERED: cefTRIAXone IN SWFI 1,000 MG/10 ML SYRINGE IVP STA (20:18)
--- NOTE | 2020-04-10 20:31 | CT ---
EXAMINATION TYPE: CT brain wo con DATE OF EXAM: 04/10/2020 COMPARISON: CT brain 02/20/2010, MR brain 12/29/2015 HISTORY: Altered mental status. CT DLP: 1099.4 mGycm Automated exposure control for dose reduction was used. Helical imaging through the brain FINDINGS: Multiple areas of encephalomalacia are again noted including the left cerebellar hemisphere, bilatera l frontal lobes, right occipital lobe. There is no hemorrhage or hydrocephalus. Cerebral vascular keiry cifications are noted. Metallic density is present as on prior exam to the left of the brainstem. The calvarium is intact. Paranasal sinuses and mastoid air cells are well aerated. IMPRESSION: FINDINGS COMPATIBLE WITH MULTIPLE PRIOR INFARCTIONS. INDETERMINATE METALLIC DENSITY IS CHRONIC. NO AC [place] ABNORMALITIES EVIDENT.
[2020-04-11] MEDS ORDERED: methocarbamoL 750 MG TAB PO PRN (00:02)
[2020-04-11] MEDS: NICOTINE 14MG/24HR PATCH TRANSDERM SCH ×2 (00:30→09:38)
[2020-04-11 06:26] LABS: Appearance,Urine Clear (Clear); Bacteria,Urine Rare /hpf; Bilirubin,Urine Negative (Negative); Blood,Urine Negative (Negative); Color,Urine Yellow; Glucose,Urine (UA) Trace (Negative); Hyaline Casts,Urine 3 /lpf (0-2); Ketones,Urine Negative (Negative); Leukocyte Esterase,Urine Negative (Negative); Mucus,Urine Rare /hpf; Nitrite,Urine Negative (Negative); PH, Urine 5.5 (5.0-8.0); Protein,Urine 1+ (Negative); RBC,Urine 2 /hpf (0-5); Specific Gravity,Urine 1.012 (1.001-1.035); Squamous Epithelial Cell,Urine 1 /hpf (0-4); Urobilinogen,Urine <2.0 mg/dL (<2.0); WBC,Urine 5 /hpf (0-5)
[2020-04-11 07:32] LABS: Amphetamine Screen,Urine Not Detected (NotDetected); Barbiturate Screen,Urine Not Detected (NotDetected); Benzodiazepines Screen,Urine Not Detected (NotDetected); Cocaine Screen,Urine Not Detected (NotDetected); Methadone Screen, Urine Not Detected (NotDetected); Opiate Screen,Urine Not Detected (NotDetected); Oxycodone Screen, Urine Not Detected (NotDetected); Phencyclidine Screen,Urine Not Detected (NotDetected); Tricyclic Antidepressant,Urine Not Detected (NotDetected); Urn Cannabinoid Scrn Not Detected (NotDetected)
[2020-04-11 07:38] LABS: Glucose,Whole Blood 154 mg/dL (75-99)
[2020-04-11] MEDS: ALBUTEROL HFA INHALER INHALATION SCH ×5 (09:22→20:22)
[2020-04-11] MEDS: ISOSORBIDE MONONITRATE ER 30 MG TAB.ER.24H PO SCH (09:39)
[2020-04-11] MEDS: CLOPIDOGREL 75 MG TAB PO SCH (09:39)
[2020-04-11] MEDS: ASPIRIN 325 MG TAB PO SCH (09:39)
[2020-04-11] MEDS: GLIMEPIRIDE 1 MG TAB PO SCH (09:39)
[2020-04-11] MEDS: dexAMETHasone 2 MG TAB PO SCH (09:39)
[2020-04-11] MEDS: SERTRALINE 100 MG TAB PO SCH (09:39)
[2020-04-11] MEDS: GABAPENTIN 400 MG CAP PO SCH ×3 (09:39→21:53)
[2020-04-11] MEDS: INSULIN DETEMIR (LEVEMIR) 100 UNIT/ML SYR SQ SCH (09:39)
[2020-04-11 12:16] LABS: Glucose,Whole Blood 147 mg/dL (75-99)
[2020-04-11] MEDS ORDERED: LORATADINE 10 MG TAB PO PRN (16:58)
[2020-04-11] MEDS ORDERED: NITROGLYCERIN SL TABS 0.4 MG TAB SUBLINGUAL PRN (16:58)
[2020-04-11 17:15] LABS: Glucose,Whole Blood 169 mg/dL (75-99)
[2020-04-11] MEDS: ENOXAPARIN 40 MG/0.4 ML SYRINGE SQ SCH (17:21)
[2020-04-11] MEDS: ZINC SULFATE 220 MG CAP PO SCH (17:21)
[2020-04-11] MEDS: SODIUM CHLORIDE 0.9% 1,000 ML IV SCH (17:21)
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
--- NOTE | 2020-04-11 19:27 | CT ---
EXAMINATION TYPE: CT chest wo con DATE OF EXAM: 04/11/2020 COMPARISON: 12/23/2018 HISTORY: Covid pneumonia. CT DLP: 588.8 mGycm Automated exposure control for dose reduction was used. Images were obtained from the thoracic inlet to the diaphragm without contrast. There is bilateral upper and lower lobe patchy interstitial and airspace infiltrates. There is no dis crete pulmonary mass. There is coronary artery calcification. Heart size is fairly normal. There is n o pericardial effusion. There is no pleural effusion. There are no hilar masses. There are paratrache al lymph nodes and anterior mediastinal lymph nodes that measure up to 2 x 1 cm. Thoracic aorta shows no aneurysm. The bony thorax is intact. There is spurring in the mid and lower thoracic spine. IMPRESSION: Bilateral patchy pulmonary infiltrates consistent with pneumonia. This appears essentially new compar ed to old exam.
[2020-04-11 20:14] LABS: Glucose,Whole Blood 142 mg/dL (75-99)
[2020-04-11] MEDS: ACETAMINOPHEN TAB 325 MG TAB PO PRN (21:51)
[2020-04-11] MEDS: ATORVASTATIN 20 MG TAB PO SCH (21:53)
[2020-04-11] MEDS: amLODIPine 10 MG TAB PO SCH (21:53)
[2020-04-11] MEDS: TRIAMCINOLONE 0.1% CREAM 80 GM TUBE TOPICAL SCH (21:53)
--- NOTE | 2020-04-11 23:41 | CONS ---
CONSULTATION PULMONARY/CRITICAL CARE CONSULTATION: DATE OF CONSULTATION: April 11, 2020. This is a 64-year-old female who was brought into the emergency room with some complaints of mental status changes. The patient was apparently brought in by her daughter. The daughter apparently states that the patient was having mental status changes. Anyway, the patient was very confused. Currently, she is much more alert and awake. She apparently has not been feeling well for a couple of days prior to admission. She apparently had some shortness of breath. In addition, she has some chest congestion and cough. This is not noted in the ER ciro. She does admit to being confused and somewhat out of it when she first came into the hospital. Anyway, she did present to the emergency room on April 10 at 1731. She was evaluated there and admitted with a diagnosis of acute COVID-19 pneumonitis/pneumonia along with mental status changes, likely sepsis secondary to viral sepsis. Currently, she is feeling much better. She is not receiving any supplemental oxygen at this time. She is not receiving any IV fluids. She is lying on her right side in bed. She appears to be relatively comfortable. I do not notice any conversational dyspnea, use of accessory muscles or audible wheezing. CURRENT HOME MEDICATIONS: Current home medications include Neurontin, insulin, amlodipine, Amaryl, Bentyl, Tylenol, aspirin, Zyrtec, Imdur, Zoloft, Plavix, Zocor, and Zestril. ALLERGIES: Allergies include PENICILLIN, PENTOBARBITAL, THORAZINE, CODEINE, VALIUM, and COMPAZINE. MEDICAL HISTORY: Medical history is reviewed. It is positive for CAD, angina pectoris, COPD, CVA, diabetes, GERD, hyperlipidemia, hypertension, myocardial infarction, DJD, pneumonia, and syncope. 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 SURGICAL HISTORY: Surgical history includes back surgery, cholecystectomy, heart catheterization with stent, multiple orthopedic procedures, brain aneurysm surgery with coil placement, EGD/colonoscopy, skin grafts, and right knee arthroscopy. SOCIAL HISTORY: Positive for ongoing and everyday tobacco use. She denies any alcohol use or illicit drug use. FAMILY HISTORY: Positive for father who from bladder cancer at age 80 and a mother who from kidney failure at the age of 48. REVIEW OF SYSTEMS: CONSTITUTIONAL: Confusion, improved. NEUROLOGIC: Confusion. HEENT: Negative. CARDIOVASCULAR: Negative. PULMONARY: Shortness of breath, chest congestion, cough. GI: Negative. : Negative. RHEUMATOLOGIC: Negative. IMMUNOLOGIC: Negative. ENDOCRINOLOGIC: Negative. DERMATOLOGIC: Negative. PHYSICAL EXAMINATION: VITAL SIGNS: Current vital signs are reviewed. Temperature is 98.1, heart rate 51, respiratory rate 16, blood pressure 173/73 and mean is 106, room air saturation between 93% and 95%. GENERAL: Appears in no acute distress. HEENT: Examination is grossly unremarkable. NECK: Supple. Full range of motion. No adenopathy. Neck veins are flat. CARDIOVASCULAR: Examination reveals regular rhythm and rate. Heart rate mid 60s. S1, S2 normal. Heart sounds are distant. LUNGS: Reveal a few scattered rhonchi. Lungs are mostly clear. No wheezes or crackles. ABDOMEN: Soft, but obese. EXTREMITIES: Are intact. No edema. SKIN: Without rash. NEUROLOGIC: Examination is currently normal. LABS: Labs are reviewed. White count 6.8, hemoglobin 14, hematocrit 41.9, platelet count 130,000. PT, INR, PTT normal. D-dimer 0.66. Sodium, potassium, chloride normal. CO2 is 21. Anion gap is 10. BUN and creatinine were 27 and 1.18. The rest of the comprehensive metabolic profile is normal save for an elevated AST of 80 and ALT of 56. Urine was negative for infection. There is rare bacteria in the urine. Drug screen was negative. Coronavirus was tested for and was positive by PCR. Microbiology is negative. Chest x-ray does show diffuse bilateral patchy infiltrates. A brain CT showed previous multiple infarctions, but no acute abnormalities. MEDICATIONS: Current medications include Tylenol, albuterol inhaler, amlodipine, aspirin, Lipitor, Symbicort, ceftriaxone, Plavix, Decadron, Lovenox, folic acid, Neurontin, glimepiride, [place], insulin, Imdur, loratadine, Robaxin, multivitamins, nicotine patch, nitroglycerin tablets, Zoloft, sodium chloride at infusion at 50 mL an hour, thiamine, Kenalog cream, and zinc. ASSESSMENT: 1. Acute hypoxemic respiratory failure with mental status changes, secondary to acute COVID-19 pneumonitis/pneumonia. 2. History of coronary artery disease. 3. Angina. 4. Chronic obstructive pulmonary disease from previous and ongoing tobacco use. 5. History of cerebrovascular accident. 6. Diabetes mellitus. 7. Gastroesophageal reflux disease. 8. Hyperlipidemia. 9. Hypertension. 10.Myocardial infarction. 11.Degenerative joint disease. 12.Syncope. 13.History of gastric ulcer. 14.Previous history of brain aneurysm, treated with a coil. 15.Multiple other medical problems and comorbidities. PLAN: The patient's medications are appropriate. We will continue to follow. No additional recommendations are made. Clinically, the patient looks good, even though her chest x- ray looks awful. Hopefully, she will not deteriorate. Her medications are appropriate. She is on zinc and Decadron, but would benefit as well from vitamin C and vitamin D3. Additional recommendations and suggestions are forthcoming. Prognosis is guarded. MMODL / IJN: [id number] /
[2020-04-12 03:20] LABS: Hemoglobin A1C 7.8 % (4.0-6.0)
[2020-04-12 06:55] LABS: Basophils # (A) 0.1 k/uL (0-0.2); Basophils % (A) 1 %; Eosinophils % (A) 0 %; HCT 40.2 % (34.0-46.0); HGB 13.3 gm/dL (11.4-16.0); Lymphocytes # (A) 1.5 k/uL (1.0-4.8); Lymphocytes % (A) 14 %; MCH 27.1 pg (25.0-35.0); MCHC 33.1 g/dL (31.0-37.0); MCV 81.9 fL (80.0-100.0); Mean Platelet Volume 9.5; Monocytes # (A) 0.8 k/uL (0-1.0); Monocytes % (A) 7 %; Neutrophils # (A) 8.1 k/uL (1.3-7.7); Neutrophils % (A) 76 %; Platelet Count 148 k/uL (150-450); RBC 4.91 m/uL (3.80-5.40); RDW 14.7 % (11.5-15.5); WBC 10.6 k/uL (3.8-10.6)
[2020-04-12 07:02] LABS: Glucose,Whole Blood 90 mg/dL (75-99)
[2020-04-12] MEDS: ALBUTEROL HFA INHALER INHALATION SCH ×4 (08:12→20:10)
[2020-04-12] MEDS: SYMBICORT 80-4.5 MCG INHALER INHALATION SCH ×2 (08:12→20:10)
--- NOTE | 2020-04-12 08:35 | XR ---
EXAMINATION TYPE: XR chest 1V portable DATE OF EXAM: 04/12/2020 COMPARISON: Prior chest x-ray 04/10/2020 HISTORY: Pneumonia TECHNIQUE: Single frontal view of the chest is obtained. FINDINGS: Bilateral groundglass opacity is present. No evident pneumothorax or pleural effusion. Tho racic cord stimulator is in place. Heart may be enlarged, patient is rotated. IMPRESSION: Bilateral pneumonia.
[2020-04-12] MEDS: dexAMETHasone 2 MG TAB PO SCH (08:51)
[2020-04-12] MEDS: ENOXAPARIN 40 MG/0.4 ML SYRINGE SQ SCH (08:51)
[2020-04-12] MEDS: GLIMEPIRIDE 1 MG TAB PO SCH (08:51)
[2020-04-12] MEDS: ASCORBIC ACID 500 MG TAB PO SCH (08:51)
[2020-04-12] MEDS: TRIAMCINOLONE 0.1% CREAM 80 GM TUBE TOPICAL SCH ×2 (08:51→21:15)
[2020-04-12] MEDS: ZINC SULFATE 220 MG CAP PO SCH (08:51)
[2020-04-12] MEDS: NICOTINE 14MG/24HR PATCH TRANSDERM SCH (08:51)
[2020-04-12] MEDS: CHOLECALCIFEROL 400 UNIT TAB PO SCH (08:51)
[2020-04-12] MEDS: CLOPIDOGREL 75 MG TAB PO SCH (08:52)
[2020-04-12] MEDS: GABAPENTIN 400 MG CAP PO SCH ×3 (08:52→21:15)
[2020-04-12] MEDS: ASPIRIN 325 MG TAB PO SCH (08:52)
[2020-04-12] MEDS: ISOSORBIDE MONONITRATE ER 30 MG TAB.ER.24H PO SCH (08:52)
[2020-04-12] MEDS: SERTRALINE 100 MG TAB PO SCH (08:52)
[2020-04-12] MEDS: INSULIN DETEMIR (LEVEMIR) 100 UNIT/ML SYR SQ SCH (09:00)
[2020-04-12 11:34] LABS: Glucose,Whole Blood 131 mg/dL (75-99)
[2020-04-12] MEDS: FOLIC ACID 1 MG TAB PO SCH (14:34)
[2020-04-12] MEDS: MULTIVITAMINS, THERA 1 EACH TAB PO SCH (14:35)
[2020-04-12] MEDS: THIAMINE 100 MG TAB PO SCH (14:35)
--- NOTE | 2020-04-12 15:14 | CDI ---
Documentation Clarification Form Date: 04/12/2020 02:54:40 PM From: Opal Jimenez RN CCDS Admit Date: 04/10/2020 08:22:00 PM Patient Name: Starr James Visit Number: [id number] Discharge Date: ATTENTION: The Clinical Documentation Specialists (CDI) and [facility] Coding Staff appreciate your assistance in clarifying documentation. Please respond to the clarification below the line at the bottom and electronically sign. The CDI & [facility] Coding staff will review the response and follow-up if needed. Please note: Queries are made part of the Legal Health Record. If you have any questions, please contact the author of this message via ITS. Dr. Ant Rodriguez Sepsis is documented in the Pulmonology Consult Note 04/11 History/Risk Factors: 64-year-old female presents to the ED with confusion and change in mental status. The patient was recently at [facility] and patient was taken to [place] admitted for further evaluation and treatment. Clinical Indicators: Pulmonology Consult 04/11: She did present to the emergency room on 04/10 at 1731. She was evaluated there and admitted with diagnosis of acute COVID 19 pneumonitis / pneumonia along with mental status changes, likely sepsis secondary to viral sepsis. Labs 04/10: Wbc 6.8; Cr 1.18; AST 80; ALT 56; CORONAVIRUS Detected A Vitals signs on admission 04/10: B/P 165/77; HR 63; Temp 100.3F Oral; RR 18; SpO2 91% room air CXR 04/10: Correlate for pneumonia, edema Treatment: 04/11 Vitamin C PO Daily; Dexamethasone PO Daily; Zinc Sulfate PO Daily; Antibiotics: 04/10 Ceftriaxone IVPB Daily; IV Bolus: 04/10: 0.9 NS 500cc Bolus; In your professional opinion, please clarify if Sepsis: Sepsis ruled out Sepsis POA Other, please specify Unable to determine Identify the (suspected) organism SIRS Criteria (2 or more of the following may indicate SIRS): -Temperature < 96.8F (36C) or > 101.0F (38.3C) -Heart Rate > 90 bpm -Respiratory Rate > 20 breaths/min or PaCO2 < 32 mmHg -White Blood Cell Count > 12,000 or < 4,000 cells/mm3 or > 10% bands -Lactate >2.0 mmol/L (>4.0 is equivalent to septic shock) (Last Revision: August 2017) Sepsis POA MTDD
--- NOTE | 2020-04-12 17:28 | PN ---
PROGRESS NOTE PULMONARY/CRITICAL CARE PROGRESS NOTE: This is a 64-year-old female who was admitted on April 10. We saw her in consultation on April 11. She is a 64-year-old female brought into the emergency room with mental status changes. Currently, the patient is doing much better. She is much more awake and alert. She was admitted with a diagnosis of acute hypoxemic respiratory failure, with encephalopathy and mental status changes, secondary to acute COVID-19 pneumonitis/pneumonia. As I mentioned, she is doing much better. So much so, she is only on a couple L of O2. She is awake and alert. She denies any chest pain or chest discomfort. She is not short of breath. She denies any cough, fever, chills, muscle aches, joint aches, etc. Current vital signs are reviewed, temperature is 98.3, heart rate 55, respiratory rate 20, blood pressure 93/55 mean of 67, saturations are 94%. Appears in no acute distress. HEENT: Examination is grossly unremarkable. Nasal O2 noted. NECK: Supple, full range of motion. No adenopathy. Neck veins are flat. CARDIOVASCULAR: Examination reveals regular rhythm and rate. S1, S2 normal. No S3, S4, or murmur. LUNGS: Reveal scattered rhonchi. No wheezes or crackles. Breath sounds equal. ABDOMEN: Soft bowel sounds are heard. No masses or tenderness. EXTREMITIES: Intact. No cyanosis, clubbing, or edema. SKIN: Without rash. NEUROLOGIC: Examination is nonfocal. She is much more awake and alert today. LABS: Reviewed. White count 10.6, hemoglobin 13.3, hematocrit 40.2, platelet count 148,000. The rest of the labs look okay. There was a chest x-ray from 04/12 which reveals a bilateral patchy infiltrates consistent with COVID-[address] was negative. MEDICATIONS: Reviewed. The patient is on Tylenol, albuterol inhaler, amlodipine, vitamin C, aspirin, Lipitor, Symbicort, Rocephin, cholecalciferol, Plavix, Decadron, Lovenox, folic acid, gabapentin, Amaryl, [place], insulin, Imdur, loratadine, Robaxin, multivitamins, nicotine patch, sublingual nitroglycerin, Zoloft, thiamine, Kenalog cream, and zinc. ASSESSMENT: 1. COVID-19 pneumonitis/pneumonia, with acute hypoxemic respiratory failure and mental status changes. 2. History of coronary artery disease. 3. Angina pectoris. 4. COPD from previous and ongoing tobacco use. 5. History of cerebrovascular accident. 6. Diabetes mellitus. 7. Gastroesophageal reflux disease. 8. Hyperlipidemia. 9. Hypertension. 10.History of myocardial infarction. 11.Degenerative joint disease. 12.Syncope. 13.History of gastric ulcer. 14.Previous history of brain aneurysm, treated with a coil. 15.Multiple other medical problems and comorbidities. PLAN: Currently, the patient is doing much better. She is much more awake and alert. She is currently on Decadron, vitamin C, vitamin D3, and zinc. Will continue to follow. Prognosis is guarded. Repeat chest x-ray in a couple days and inflammatory markers in a couple days. Will continue to follow. Prognosis is guarded. MMODL / IJN: [id number] /
[2020-04-12 17:41] LABS: Glucose,Whole Blood 186 mg/dL (75-99)
[2020-04-12] MEDS ORDERED: REMDESIVIR 200 MG in SODIUM CHLORIDE 0.9% 250 ML IVPB ONE (18:00)
[2020-04-12] MEDS: SODIUM CHLORIDE 0.9% 1,000 ML IV SCH (18:12)
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
[2020-04-12 20:23] LABS: Glucose,Whole Blood 240 mg/dL (75-99)
[2020-04-12] MEDS: ATORVASTATIN 20 MG TAB PO SCH (21:14)
[2020-04-12] MEDS: amLODIPine 10 MG TAB PO SCH (21:14)
[2020-04-12] MEDS: HYDROcodone/APAP 5-325MG 1 EACH TAB PO PRN (21:15)
--- NOTE | 2020-04-12 21:16 | EEG ---
ELECTROENCEPHALOGRAM REPORT DATE OF SERVICE: 04/12/2020 CLINICAL HISTORY: This is a 64-year-old female with history of brain aneurysm status post coiling with left cerebellar and bilateral frontal encephalomalacia as a result of ruptured brain aneurysm that presented to the emergency department on 04/10/2020 for altered mental status. This video EEG was obtained to evaluate for seizure and epileptiform activity. MEDICATION: Not on any antiepileptic medications. EEG TYPE: A 10/20 EEG system was done per ACNS guidelines for a Covid patient. DESCRIPTION: Wakefulness is only obtained. During wakefulness, there is a posterior dominant rhythm of low to moderate voltage, reactive, well modulated, of 7-8 hertz activity over the bilateral hemisphere. No physiological stage 2 sleep seen. There are low to moderate voltage nonrhythmic 0.5-1 hertz delta activity that seems to be frequent to continuous over the bilateral frontal derivatives. INTERICTAL AND ICTAL: None ACTIVATION PROCEDURE: Photic stimulation and hyperventilation were not performed. CLINICAL INTERPRETATION: This is abnormal routine EEG. The mild background slowing is indicative of mild encephalopathy. The bilateral focal slowing over the frontal leads is consistent with the patient's history of stroke. There are no epileptiform discharges or seizures seen during this EEG. Clinical correlation is recommended. MMODL / IJN: [id number] / MTDD
--- NOTE | 2020-04-12 21:30 | P.PN ---
Subjective Progress Note Date: 04/12/20 She was seen at bedside and she said that the from a neurology standpoint that she has no issues. She said that she's complaining of a cough and throat pain. Per the patient nurse no seizure-like activity and in the hospital and the said the the neurology she seems intact Objective - Vital Signs Vital signs: Vital Signs Temp 97.0 F L 04/12/20 18:00 Pulse 57 L 04/12/20 18:00 Resp 20 04/12/20 18:00 BP 133/76 04/12/20 18:00 Pulse Ox 92 L 04/12/20 18:00 Intake & Output 04/12/20 04/12/20 04/13/20 06:59 18:59 06:59 Intake Total 530 Balance 530 Intake: Intake, IV Titration 50 Amount cefTRIAXone 1 gm In 50 Sodium Chloride 0.9% 50 ml @ 100 mls/hr IVPB Q24HR [facility] Rx#:[id number] Oral 480 Other: Voiding Method Toilet Bedpan # Voids 1 3 - Exam GENERAL: The patient is lying in bed and is not in acute distress. NEUROLOGICAL: Higher mental function: The patient is awake, alert, oriented to self, place and time. Patient is following commands. No aphasia and no neglect. Cranial nerves: The pupils are round, equal and reactive to light and accommodation. Visual valdez are full to confrontation throughout. Extraocular movement is intact no nystagmus is noted. Facial sensation is normal to touch throughout. The facial strength is normal throughout. Hearing is normal bilaterally to hand rub. Tongue is midline and moved [id number] without any difficulty. No dysarthria is noted. Shoulder shrug is normal bilaterally. Motor: Gait is slow but was no swaying toward one side or the other. The strength is 5 over 5 throughout. Normal tone and bulk. Cerebellum: Normal finger to nose heel to chin bilaterally. Sensation: Sensation is normal to touch throughout. Reflexes (right/left): 2+ Plantars are downgoing bilaterally. - Labs CBC & Chem 7: 04/12/20 06:27 04/10/20 19:21 Labs: Abnormal Lab Results - Last 24 Hours (Table) 04/11/20 04/11/20 04/12/20 Range/Units 14:56 14:56 06:27 Plt Count 148 L (150-450) k/uL Neutrophils # 8.1 H (1.3-7.7) k/uL POC Glucose (mg/dL) (75-99) mg/dL Hemoglobin A1c 7.8 H (4.0-6.0) % Procalcitonin 0.17 H (0.02-0.09) ng/mL 04/12/20 04/12/20 04/12/20 Range/Units 11:32 17:40 20:21 Plt Count (150-450) k/uL Neutrophils # (1.3-7.7) k/uL POC Glucose (mg/dL) 131 H 186 H 240 H (75-99) mg/dL Hemoglobin A1c (4.0-6.0) % Procalcitonin (0.02-0.09) ng/mL Assessment and Plan Assessment: This is a 64-year-old woman with medical problem that presented to the emergency department on 04/10/2020 by her daughter because of altered mental status. She had a low-grade fever and her COVID PCR is positive. 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) Acute kidney injury Hyperlipidemia Hypertension Diabetes mellitus History of peripheral neuropathy Myocardial infarction History of tinnitus History of retinal bleeding involving the left eye History of coronary artery disease Tobacco use Plan: vitamin B12: 504 which is within normal limits. folate: pending. TSH: 0.360 which is within normal limits. ammonia level <9 which is within normal limits. EEG: Mild back on slowing suggestive of mild encephalopathy. The bilateral focal slowing over the frontal leads is consistent with the patient history of prior stroke. There is no epileptiform discharges or seizure seen that during the study. Therefore I would not start the patient on antiepileptic drug. I would like her to be a valid by a neurologist as an outpatient and if she continues to have any seizure-like activity then I'll defer to the outpatient neurologist. May consider long-term EEG as an outpatient or even epilepsy m onitoring unit as an outpatient. Patient is on aspirin 325 daily as well as Plavix 75 daily. Patient is also on the Lipitor 20mg daily. PT/OT are consulted. Thiamine 100 mg daily was restarted by the primary team as well. Patient is on gabapentin 400 mg 3 times a day which was continued by the primary team for her neuropathy. I will not order any further workup for her strokes. According to the daughter these are as a result of the rupture of the brain aneurysm and she had all the workup at the outside facility. Regarding the patient to covert and any other underlying infection infection d isease is consulted and we'll defer to them. Upon discharge the patient needs to follow-up with a neurologist within 1-2 weeks. There is no further neurological workup. We'll sign off. Please reconsult if needed. Serafin Matute M.D. Neuro-hospitalist Time with Patient: Less than 30
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
[2020-04-13] MEDS: ACETAMINOPHEN TAB 325 MG TAB PO PRN (02:38)
[2020-04-13 06:50] LABS: Glucose,Whole Blood 84 mg/dL (75-99)
[2020-04-13 07:25] LABS: Basophils % (A) 0 %; Eosinophils % (A) 0 %; HCT 40.1 % (34.0-46.0); Lymphocytes # (A) 1.9 k/uL (1.0-4.8); Lymphocytes % (A) 18 %; MCH 25.9 pg (25.0-35.0); MCHC 32.3 g/dL (31.0-37.0); MCV 80.2 fL (80.0-100.0); Mean Platelet Volume 9.2; Monocytes # (A) 0.7 k/uL (0-1.0); Monocytes % (A) 6 %; Neutrophils # (A) 7.7 k/uL (1.3-7.7); Neutrophils % (A) 74 %; Platelet Count 160 k/uL (150-450); RDW 14.9 % (11.5-15.5); WBC 10.4 k/uL (3.8-10.6)
[2020-04-13] MEDS: INSULIN DETEMIR (LEVEMIR) 100 UNIT/ML SYR SQ SCH (07:43)
[2020-04-13] MEDS: ASCORBIC ACID 500 MG TAB PO SCH (07:45)
[2020-04-13] MEDS: dexAMETHasone 2 MG TAB PO SCH (07:45)
[2020-04-13] MEDS: ENOXAPARIN 40 MG/0.4 ML SYRINGE SQ SCH (07:45)
[2020-04-13] MEDS: ISOSORBIDE MONONITRATE ER 30 MG TAB.ER.24H PO SCH (07:45)
[2020-04-13] MEDS: GABAPENTIN 400 MG CAP PO SCH ×3 (07:45→20:02)
[2020-04-13] MEDS: CLOPIDOGREL 75 MG TAB PO SCH (07:45)
[2020-04-13] MEDS: SERTRALINE 100 MG TAB PO SCH (07:46)
[2020-04-13] MEDS: NICOTINE 14MG/24HR PATCH TRANSDERM SCH (07:46)
[2020-04-13] MEDS: ASPIRIN 325 MG TAB PO SCH (07:46)
[2020-04-13] MEDS: ZINC SULFATE 220 MG CAP PO SCH (07:46)
[2020-04-13] MEDS: GLIMEPIRIDE 1 MG TAB PO SCH (07:46)
[2020-04-13] MEDS: CHOLECALCIFEROL 400 UNIT TAB PO SCH (07:47)
[2020-04-13] MEDS: TRIAMCINOLONE 0.1% CREAM 80 GM TUBE TOPICAL SCH ×2 (07:47→20:02)
[2020-04-13] MEDS: SODIUM CHLORIDE 0.9% 1,000 ML IV SCH (07:47)
[2020-04-13] MEDS: ALBUTEROL HFA INHALER INHALATION SCH ×4 (08:58→21:06)
[2020-04-13] MEDS: SYMBICORT 80-4.5 MCG INHALER INHALATION SCH ×2 (08:58→21:06)
[2020-04-13] MEDS: FOLIC ACID 1 MG TAB PO SCH (11:36)
[2020-04-13] MEDS: THIAMINE 100 MG TAB PO SCH (11:36)
[2020-04-13] MEDS: MULTIVITAMINS, THERA 1 EACH TAB PO SCH (11:36)
[2020-04-13 11:49] LABS: Glucose,Whole Blood 131 mg/dL (75-99)
[2020-04-13 12:08] LABS: African American GFR (CKD) 69.9 (60.0-200.0); Anion Gap 14.1 mmol/L (4.00-12.00); Calcium 8.5 mg/dL (8.7-10.3); Carbon Dioxide 16.9 mmol/L (21.6-31.8); Non-African American GFR(CKD) 60.3 (60.0-200.0)
[2020-04-13] MEDS: methylPREDNISolone SOD SUCCI 125 MG/2 ML VIAL IV SCH ×3 (13:05→23:17)
--- NOTE | 2020-04-13 15:35 | PN ---
PROGRESS NOTE PULMONARY/CRITICAL CARE PROGRESS NOTE: DATE OF SERVICE: 04/13/2020 A 64-year-old female who was admitted on April 10. She was seen in consultation on April 11. She is 64 years of age. She was brought into the emergency room with mental status changes. Yesterday, she was doing much better. Yesterday, she was only on a couple of L of oxygen. Today, she is on a non-rebreather. The patient is much more short of breath. She is awake and alert. She does respond appropriately. She does cough. She has chest congestion. She denies any fever or chills. There is no nausea, vomiting, diarrhea, or abdominal pain. Current vital signs include a temperature of 97.8 with a T-max of 101.6, heart rate 60, respiratory rate 22, blood pressure 149/61 mean 90 and saturations are 90% on a non- rebreather. Appears mildly tachypneic. No conversational dyspnea, use of accessory muscles or audible wheezing. HEENT: Examination is grossly unremarkable. NECK: Supple, full range of motion. No adenopathy. Neck veins are flat. CARDIOVASCULAR: Examination reveals regular rhythm and rate. LUNGS: Reveal diminished breath sounds. A few scattered rhonchi. No wheezes or crackles. ABDOMEN: Soft, bowel sounds are heard. EXTREMITIES: Intact. No cyanosis, clubbing, or edema. LABS: Reviewed. White count 10.4, hemoglobin 13, hematocrit 40.1, platelet count 160,000. Sodium 143, potassium chloride 112, CO2 17 anion gap is 14. BUN and creatinine were 26 and 1.0. Microbiology is pending or negative. The last chest x-ray was done yesterday. CURRENT MEDICATIONS: Include Tylenol, albuterol inhaler, amlodipine, vitamin C, aspirin, Lipitor, Symbicort, Rocephin, cholecalciferol, Plavix, Lovenox, folic acid, gabapentin, Amaryl, [place], insulin, Imdur, Claritin, Robaxin, Solu-Medrol, multivitamins, nicotine patch, sublingual nitroglycerin, Remdesivir, Zoloft 0.9 at 50, thiamin, Kenalog cream, and zinc. ASSESSMENT: 1. COVID-19 pneumonitis/pneumonia with moderate to severe hypoxemic respiratory failure. 2. Mental status changes, improved. 3. History of coronary artery disease. 4. Angina pectoris. 5. COPD from previous and ongoing tobacco use. 6. History of cerebrovascular accident. 7. Diabetes mellitus. 8. Gastroesophageal reflux disease. 9. Hyperlipidemia. 10.History of hypertension. 11.History of myocardial infarction. 12.History of degenerative joint disease. 13.Syncope. 14.History of gastric ulcer. 15.Previous history of brain aneurysm, treated with a coil. 16.Multiple other medical problems and comorbidities. PLAN: Yesterday, the patient appeared to be doing much better. Medications will be reviewed. Currently, she is on appropriate medications including Solu-Medrol, Remdesivir, zinc, vitamin C, vitamin D3, and albuterol inhaler. Will continue to follow. Prognosis is guarded. The patient may eventually end up in the intensive care unit. HAIM / AMAN: [id number] /
[2020-04-13] MEDS: REMDESIVIR 100 MG in SODIUM CHLORIDE 0.9% 250 ML IVPB SCH (16:26)
[2020-04-13 16:40] LABS: Glucose,Whole Blood 266 mg/dL (75-99)
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
[2020-04-13] MEDS: ATORVASTATIN 20 MG TAB PO SCH (20:02)
[2020-04-13] MEDS: amLODIPine 10 MG TAB PO SCH (20:02)
[2020-04-13 20:04] LABS: Glucose,Whole Blood 349 mg/dL (75-99)
[2020-04-13] MEDS: HYDROcodone/APAP 5-325MG 1 EACH TAB PO PRN (23:17)
--- NOTE | 2020-04-13 23:20 | PN ---
PROGRESS NOTE DATE OF SERVICE: 04/13/2020 REASON FOR FOLLOWUP: Acute COVID-19 pneumonia. INTERVAL HISTORY: The patient is currently afebrile. The patient did have worsening of her respiratory status, currently requiring a non-rebreather high-flow nasal cannula oxygen. The patient denies having any chest pain. She did have a cough, not bringing up any sputum. No nausea, vomiting, abdominal pain or diarrhea. PHYSICAL EXAMINATION: Blood pressure 160/71, pulse of 55, temperature 98.5. She is 92% on 15 L high-flow oxygen. General description is a middle-aged female up in the chair in no distress. RESPIRATORY SYSTEM: Unlabored breathing with decreased intensity of breath sounds. No wheeze. HEART: S1, S2. Regular rate and rhythm. ABDOMEN: Soft. No tenderness. LABS: Hemoglobin is 13, white count 10.4, BUN of 26, creatinine 1.0. DIAGNOSTIC IMPRESSION AND PLAN: Patient with acute COVID-19 pneumonia in this patient currently being treated with remdesivir, Lovenox, Solu-Medrol; to continue along with respiratory support IV fluid and monitor clinical course closely. MMODL / IJN: [id number] /
[2020-04-14] MEDS: methylPREDNISolone SOD SUCCI 125 MG/2 ML VIAL IV SCH ×4 (05:32→23:16)
[2020-04-14 06:53] LABS: Basophils % (A) 0 %; Eosinophils % (A) 0 %; HCT 41.8 % (34.0-46.0); HGB 13.2 gm/dL (11.4-16.0); Hypochromasia Slight; Lymphocytes # (A) 1.2 k/uL (1.0-4.8); Lymphocytes % (A) 10 %; MCH 25.9 pg (25.0-35.0); MCHC 31.5 g/dL (31.0-37.0); MCV 82.4 fL (80.0-100.0); Mean Platelet Volume 9.7; Monocytes # (A) 0.5 k/uL (0-1.0); Monocytes % (A) 4 %; Neutrophils # (A) 10.4 k/uL (1.3-7.7); Neutrophils % (A) 85 %; Platelet Count 204 k/uL (150-450); RBC 5.08 m/uL (3.80-5.40); RDW 14.9 % (11.5-15.5); WBC 12.1 k/uL (3.8-10.6)
[2020-04-14 07:10] LABS: Glucose,Whole Blood 215 mg/dL (75-99)
--- NOTE | 2020-04-14 07:47 | XR ---
EXAMINATION TYPE: XR chest 1V DATE OF EXAM: 04/14/2020 CLINICAL HISTORY: Difficulty breathing and covid pneumonia progress study. TECHNIQUE: Single AP portable upright view of the chest is obtained. COMPARISON: Chest x-ray from 2 days earlier and older studies. CT chest 3 days ago. FINDINGS: Spinal stimulator device mid to lower thoracic spinal canal redemonstrated. Low lung volum es and cardiomegaly redemonstrated. Persistent bilateral opacities thought slightly more prominent fr om most recent studies. No pleural effusion or pneumothorax seen. IMPRESSION: Worsening bilateral multifocal infiltrates consistent with worsening covid-19 infection p rogression.
[2020-04-14] MEDS: GABAPENTIN 400 MG CAP PO SCH ×3 (08:35→21:59)
[2020-04-14] MEDS: ISOSORBIDE MONONITRATE ER 30 MG TAB.ER.24H PO SCH (08:35)
[2020-04-14] MEDS: ASCORBIC ACID 500 MG TAB PO SCH (08:35)
[2020-04-14] MEDS: ZINC SULFATE 220 MG CAP PO SCH (08:35)
[2020-04-14] MEDS: NICOTINE 14MG/24HR PATCH TRANSDERM SCH (08:35)
[2020-04-14] MEDS: ASPIRIN 325 MG TAB PO SCH (08:35)
[2020-04-14] MEDS: CLOPIDOGREL 75 MG TAB PO SCH (08:35)
[2020-04-14] MEDS: SERTRALINE 100 MG TAB PO SCH (08:35)
[2020-04-14] MEDS: ENOXAPARIN 40 MG/0.4 ML SYRINGE SQ SCH (08:35)
[2020-04-14] MEDS: INSULIN DETEMIR (LEVEMIR) 100 UNIT/ML SYR SQ SCH (08:35)
[2020-04-14] MEDS: TRIAMCINOLONE 0.1% CREAM 80 GM TUBE TOPICAL SCH ×2 (08:36→20:22)
[2020-04-14] MEDS: CHOLECALCIFEROL 400 UNIT TAB PO SCH (08:36)
[2020-04-14] MEDS: GLIMEPIRIDE 1 MG TAB PO SCH (08:36)
[2020-04-14] MEDS: SODIUM CHLORIDE 0.9% 1,000 ML IV SCH ×2 (08:37→22:05)
[2020-04-14] MEDS: SYMBICORT 80-4.5 MCG INHALER INHALATION SCH ×2 (09:09→20:23)
[2020-04-14] MEDS: ALBUTEROL HFA INHALER INHALATION SCH ×4 (09:09→20:23)
[2020-04-14 09:52] LABS: African American GFR (CKD) 56.1 (60.0-200.0); Anion Gap 13.2 mmol/L (4.00-12.00); BUN/Creat Ratio 25.83 Ratio (12.00-20.00); Calcium 8.9 mg/dL (8.7-10.3); Carbon Dioxide 15.8 mmol/L (21.6-31.8); Non-African American GFR(CKD) 48.4 (60.0-200.0); Potassium 4.6 mmol/L (3.5-5.5)
[2020-04-14] MEDS: THIAMINE 100 MG TAB PO SCH (11:09)
[2020-04-14] MEDS: MULTIVITAMINS, THERA 1 EACH TAB PO SCH (11:09)
[2020-04-14] MEDS: FOLIC ACID 1 MG TAB PO SCH (11:09)
[2020-04-14 11:40] LABS: Glucose,Whole Blood 243 mg/dL (75-99)
[2020-04-14 12:27] LABS: ABG HCO3 20 mmol/L (21-25); ABG PCO2 32 mmHg (35-45); ABG PO2 61 mmHg (83-108); ABG TCO2 20 mmol/L (19-24); Allen Test Performed? Yes
[2020-04-14 12:28] LABS: ABG Base Excess -5.5 mmol/L
--- NOTE | 2020-04-14 14:20 | PN ---
PROGRESS NOTE PULMONARY/CRITICAL CARE PROGRESS NOTE: DATE OF SERVICE: 04/14/2020 A 64-year-old female admitted on April 10. She was seen in consultation on April 11. She is 64 years of age. She was initially brought to the emergency room for mental status changes. Those have improved but more recently, her respiratory status has declined. Initially, she was just on some nasal prongs, yesterday she was on a non- rebreather. She continues on a non-rebreather and feels like she is getting worse and getting very fatigued and tired. We did put a transfer order in for her to go to the ICU. Currently, there are no beds available. Vital signs are reviewed, temperature is 98, heart rate 53, respiratory rate 20, blood pressure 125/63 mean 83, saturations on the non-rebreather 89%. They did place her on Vapotherm at 60 L/minute and 90% FiO2. No saturation is recorded as yet. She appears tachypneic and dyspneic. HEENT: Examination is grossly unremarkable. Non-rebreather mask in place. NECK: Supple, full range of motion. No adenopathy or thyromegaly. CARDIOVASCULAR: Examination reveals regular rhythm and rate. Heart rate 53 beats per minute. S1, S2 normal. Heart sounds are distant. LUNGS: Reveal diffuse coarse rhonchi. Breath sounds are diminished. Breath sounds equal bilaterally. ABDOMEN: Soft, but obese. EXTREMITIES: Intact, no edema. SKIN: Without rash. NEUROLOGIC: Examination is nonfocal. LABS: Reviewed. White count 12.1, hemoglobin 13.2, hematocrit 41.8, platelet count 304,000, blood gases show pO2 of 61, a pCO2 of 32, and a pH is 7.40. These blood gases consistent with a developing respiratory alkalosis and metabolic acidosis. Bicarbonate concentration was only 20. Sodium 141, potassium 4.6, chloride 112, CO2 is 16, anion gap is 13. BUN and creatinine were 31 and 1.2. These electrolytes are consistent with an anion gap metabolic acidosis. Microbiology is currently negative. Chest x-ray dated April 14 shows a worsening fissure, diffuse patchy infiltrates bilaterally. CURRENT MEDICATIONS: Reviewed. She is on Tylenol, albuterol inhaler, amlodipine, vitamin C, aspirin, Lipitor, Symbicort, ceftriaxone, cholecalciferol, Plavix, Lovenox, folic acid, gabapentin, Amaryl, [place], insulin, Imdur, Claritin, Robaxin, Solu-Medrol, multivitamins, nicotine patch, sublingual nitroglycerin, Remdesivir, Zoloft, thiamine, Kenalog cream, and zinc. ASSESSMENT: 1. COVID-19 pneumonitis/pneumonia, with severe hypoxemic respiratory failure, and declining respiratory status. 2. Mental status changes, improved. 3. History of coronary artery disease. 4. Angina pectoris. 5. COPD, from BP improved from previous heavy tobacco use, and ongoing tobacco use. 6. History of cerebrovascular accident. 7. Diabetes mellitus. 8. Gastroesophageal reflux disease. 9. Hyperlipidemia. 10.History of hypertension. 11.History of myocardial infarction. 12.History of degenerative joint disease. 13.History of syncope. 14.History of gastric ulcer. 15.Previous history of brain aneurysm, treated with a coil. 16.Multiple other medical problems and comorbidities. PLAN: We feel the patient should be transferred to the ICU. Unfortunately, no beds are available. Will see if we can get the patient there sometime today. Currently, she was switched from a non-rebreather to AIRVO. She is on 90% FiO2. She may end up requiring intubation and mechanical ventilation. She remains on corticosteroids today and Remdesivir. Additional recommendations and suggestions forthcoming. Prognosis is guarded. MMODL / IJN: [id number] /
[2020-04-14] MEDS: REMDESIVIR 100 MG in SODIUM CHLORIDE 0.9% 250 ML IVPB SCH (16:20)
[2020-04-14] MEDS: HYDROcodone/APAP 5-325MG 1 EACH TAB PO PRN (16:22)
[2020-04-14 16:38] LABS: Glucose,Whole Blood 260 mg/dL (75-99)
[2020-04-14 17:34] LABS: Glucose,Whole Blood 272 mg/dL (75-99)
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
[2020-04-14] MEDS: amLODIPine 10 MG TAB PO SCH (20:13)
[2020-04-14] MEDS: ATORVASTATIN 20 MG TAB PO SCH (20:14)
--- NOTE | 2020-04-14 22:52 | PN ---
PROGRESS NOTE DATE OF SERVICE: 04/14/2020 REASON FOR FOLLOWUP: Acute COVID-19 pneumonia. INTERVAL HISTORY: Patient is currently afebrile. She has been transferred down to the ICU because of hypoxemia and need for high-flow oxygen. The patient denies having any chest pain, shortness of breath. Occasional cough. No nausea, vomiting and no diarrhea. PHYSICAL EXAMINATION: Blood pressure 105/84 with a pulse of 57. Temperature is 98. She is 90% percent FiO2. General description is a middle-aged female up in the chair in no distress. Respiratory system: Unlabored breathing, decreased intensity of breath sounds. No wheeze. HEART: S1, S2. Regular rate and rhythm. ABDOMEN: Soft, no tenderness. LABS: Hemoglobin 13.1, white count 12.1, BUN of 31, creatinine 1.2. DIAGNOSTIC IMPRESSION AND PLAN: Patient with acute COVID-19 pneumonia in this patient who seemed to have shown some clinical worsening as the patient has been transferred to ICU. X-ray showing worsening bilateral multifocal infiltrate. The patient is currently on Lovenox, Solu-Medrol, Remdesivir and plan to continue along with respiratory support and monitor clinical course closely. MMODL / IJN: [id number] /
[2020-04-15] MEDS: HYDROcodone/APAP 5-325MG 1 EACH TAB PO PRN ×2 (02:43→20:34)
[2020-04-15 04:44] LABS: Basophils # (A) 0.1 k/uL (0-0.2); Basophils % (A) 1 %; Eosinophils # (A) 0.1 k/uL (0-0.7); Eosinophils % (A) 1 %; HCT 38.1 % (34.0-46.0); HGB 12.2 gm/dL (11.4-16.0); Hypochromasia Slight; Lymphocytes # (A) 0.8 k/uL (1.0-4.8); Lymphocytes % (A) 7 %; MCH 26.5 pg (25.0-35.0); MCV 82.9 fL (80.0-100.0); Mean Platelet Volume 9.6; Monocytes # (A) 0.5 k/uL (0-1.0); Monocytes % (A) 4 %; Neutrophils # (A) 10.6 k/uL (1.3-7.7); Neutrophils % (A) 87 %; Platelet Count 182 k/uL (150-450); RDW 15.1 % (11.5-15.5); WBC 12.2 k/uL (3.8-10.6)
[2020-04-15 04:59] LABS: Calcium 8.6 mg/dL (8.4-10.2); Potassium 4.5 mmol/L (3.5-5.1)
[2020-04-15] MEDS: methylPREDNISolone SOD SUCCI 125 MG/2 ML VIAL IV SCH ×4 (07:08→23:58)
[2020-04-15] MEDS: INSULIN ASPART (NovoLOG) 100 UNIT/ML VIAL SQ SCH ×4 (07:08→20:34)
[2020-04-15] MEDS: INSULIN DETEMIR (LEVEMIR) 100 UNIT/ML SYR SQ SCH (07:09)
[2020-04-15 07:17] LABS: Glucose,Whole Blood 260 mg/dL (75-99)
--- NOTE | 2020-04-15 08:03 | XR ---
EXAMINATION TYPE: XR chest 1V portable DATE OF EXAM: 04/15/2020 Comparison: 04/14/2020 Clinical History: 64 year-old female shortness of breath Findings: Patient is rotated towards the right. Spinal stimulator array centered along the mid thoracic spinal canal. Heart mildly enlarged. Diffuse groundglass opacities persist. There may be a trace effusion on the right. Relatively similar prior. Impression: Similar mild cardiomegaly and diffuse bilateral groundglass density, either pulmonary edema or atypic al pneumonia.
[2020-04-15] MEDS: SYMBICORT 80-4.5 MCG INHALER INHALATION SCH ×2 (09:15→20:58)
[2020-04-15] MEDS: ALBUTEROL HFA INHALER INHALATION SCH ×4 (09:15→20:58)
[2020-04-15] MEDS: NICOTINE 14MG/24HR PATCH TRANSDERM SCH (09:43)
[2020-04-15] MEDS: ASPIRIN 325 MG TAB PO SCH (09:43)
[2020-04-15] MEDS: ASCORBIC ACID 500 MG TAB PO SCH (09:43)
[2020-04-15] MEDS: ZINC SULFATE 220 MG CAP PO SCH (09:43)
[2020-04-15] MEDS: CLOPIDOGREL 75 MG TAB PO SCH (09:43)
[2020-04-15] MEDS: CHOLECALCIFEROL 400 UNIT TAB PO SCH (09:44)
[2020-04-15] MEDS: SERTRALINE 100 MG TAB PO SCH (09:44)
[2020-04-15] MEDS: GABAPENTIN 400 MG CAP PO SCH (09:44)
[2020-04-15] MEDS: ENOXAPARIN 40 MG/0.4 ML SYRINGE SQ SCH ×2 (09:44→22:13)
[2020-04-15] MEDS: TRIAMCINOLONE 0.1% CREAM 80 GM TUBE TOPICAL SCH ×2 (09:45→20:34)
[2020-04-15 10:04] LABS: C Reactive Protein 43.8 mg/L (<10.0)
--- NOTE | 2020-04-15 10:11 | P.PN ---
Subjective Progress Note Date: 04/15/20 Principal diagnosis: Acute CoVID 19 pneumonia The patient is seen today 04/15/2020 in follow-up in the intensive care unit. She was admitted back on 04/10/2020 with acute 19 pneumonia. Her oxygen requirements have continued to increase. She is currently on AirVo high flow oxygen at 60 L/m and 90% FiO2 along with a nonrebreather mask. Currently with an O2 saturation at 97%. Earlier this morning while turning she did drop into the 70s. Chest x-ray continues to show mild cardiomegaly and diffuse bilateral groundglass densities. No improvement compared to previous. White count 12.2. Hemoglobin 12.2. Lymphocytes 0.8. Sodium 139. Potassium 4.5. Creatinine 0.97. Glucose 256. This is day #4 of Remdesivir. She remains on IV Solu- Medrol, bronchodilators, Lovenox, vitamin supplements. NicoDerm patch in place. Objective - Vital Signs Vital signs: Vital Signs Temp 97.9 F 04/15/20 04:00 Pulse 60 04/15/20 09:00 Resp 31 H 04/15/20 09:00 BP 157/76 04/15/20 09:00 Pulse Ox 97 04/15/20 09:15 Intake & Output 04/14/20 04/15/20 04/15/20 18:59 06:59 18:59 Intake Total 100 790 150 Output Total 100 715 255 Balance 0 75 -105 Weight 114.5 kg Intake: IV 100 550 150 Sodium Chloride 0.9% 1, 100 550 150 000 ml @ 50 mls/hr IV . Q20H [facility] Rx#:[id number] Oral 240 Output: Urine 100 715 255 Other: Voiding Method Indwelling Catheter Indwelling Catheter - Exam GENERAL EXAM: Alert, pleasant 64-year-old female patient, on high flowAirVo oxygen at 60 L and 90% FiO2 along with a nonrebreather mask to maintain O2 saturations in the 90s, mild respiratory distress. HEAD: Normocephalic. EYES: Normal reaction of pupils, equal size. NOSE: Clear with pink turbinates. THROAT: No erythema or exudates. NECK: No masses, no JVD. CHEST: No chest wall deformity. LUNGS: Equal air entry with diffuse bilateral coarse rhonchi CVS: S1 and S2 normal with no audible murmur, regular rhythm. ABDOMEN: No hepatosplenomegaly, normal bowel sounds, no guarding or rigidity. SPINE: No scoliosis or deformity SKIN: No rashes CENTRAL NERVOUS SYSTEM: No focal deficits, tone is normal in all 4 extremities. EXTREMITIES: There is no peripheral edema. No clubbing, no cyanosis. Peripheral pulses are intact. - Labs CBC & Chem 7: 04/15/20 04:10 04/15/20 04:10 Labs: Abnormal Lab Results - Last 24 Hours (Table) 04/14/20 04/14/20 04/14/20 Range/Units 11:38 11:41 16:35 WBC (3.8-10.6) k/uL Neutrophils # (1.3-7.7) k/uL Lymphocytes # (1.0-4.8) k/uL ABG pCO2 32 L (35-45) mmHg ABG pO2 61 L (83-108) mmHg ABG HCO3 20 L (21-25) mmol/L ABG O2 Saturation 90.0 L (94-97) % Chloride (98-107) mmol/L Carbon Dioxide (22-30) mmol/L BUN (7-17) mg/dL Glucose (74-99) mg/dL POC Glucose (mg/dL) 243 H 260 H (75-99) mg/dL 04/14/20 04/15/20 04/15/20 Range/Units 17:33 04:10 04:10 WBC 12.2 H (3.8-10.6) k/uL Neutrophils # 10.6 H (1.3-7.7) k/uL Lymphocytes # 0.8 L (1.0-4.8) k/uL ABG pCO2 (35-45) mmHg ABG pO2 (83-108) mmHg ABG HCO3 (21-25) mmol/L ABG O2 Saturation (94-97) % Chloride 113 H (98-107) mmol/L Carbon Dioxide 19 L (22-30) mmol/L BUN 38 H (7-17) mg/dL Glucose 256 H (74-99) mg/dL POC Glucose (mg/dL) 272 H (75-99) mg/dL 04/15/20 Range/Units 07:04 WBC (3.8-10.6) k/uL Neutrophils # (1.3-7.7) k/uL Lymphocytes # (1.0-4.8) k/uL ABG pCO2 (35-45) mmHg ABG pO2 (83-108) mmHg ABG HCO3 (21-25) mmol/L ABG O2 Saturation (94-97) % Chloride (98-107) mmol/L Carbon Dioxide (22-30) mmol/L BUN (7-17) mg/dL Glucose (74-99) mg/dL POC Glucose (mg/dL) 260 H (75-99) mg/dL Assessment and Plan Assessment: 1 Acute hypoxic respiratory failure secondary to acute CoVID 19 pneumonia. 2 Altered mental status secondary to above 3 Chronic obstructive pulmonary disease 4 Chronic tobacco dependence 5 History of coronary disease 6 History of CVA 7 Diabetes mellitus 8 Hyperlipidemia 9 Hypertension 10 Degenerative joint disease 11 History of gastric ulcer 12 Previous history of brain aneurysm, treated with coil Plan: The patient was seen and evaluated by Dr. Matute Chest x-ray and labs reviewed Continued with high flow oxygen Continue Remdesivir, Lovenox, IV Solu-Medrol Add convalescent plasma Continue vitamin supplementation May require intubation and mechanical ventilatory support Continue to follow her closely in the ICU and make further recommendations based on her clinical status Critical care time 38 minutes I, the cosigning physician, performed a history & physical examination of the patient. Lungs sounds with diffuse bilateral scattered rhonchi. Maintaining good O2 saturations in the 90s on 90% FiO2 and 60 L per AirVo along with a nonrebreather mask to maintain O2 saturation in the 90s. I discussed the assessment and plan of care with my nurse practitioner, Neli Mejia. I attest to the above note as dictated by her. Time with Patient: Greater than 30
[2020-04-15] MEDS: FOLIC ACID 1 MG TAB PO SCH (12:19)
[2020-04-15 12:29] LABS: Glucose,Whole Blood 176 mg/dL (75-99)
[2020-04-15 17:29] LABS: Glucose,Whole Blood 220 mg/dL (75-99)
[2020-04-15] MEDS: ONDANSETRON 4 MG/2 ML VIAL IVP PRN (17:33)
[2020-04-15] MEDS: REMDESIVIR 100 MG in SODIUM CHLORIDE 0.9% 250 ML IVPB SCH (17:34)
[2020-04-15 18:28] LABS: Ferritin 1270.3 ng/mL (10.0-291.0)
[2020-04-15 20:28] LABS: Glucose,Whole Blood 205 mg/dL (75-99)
[2020-04-15] MEDS: SODIUM CHLORIDE 0.9% 1,000 ML IV SCH (20:36)
--- NOTE | 2020-04-15 21:50 | PN ---
PROGRESS NOTE DATE OF SERVICE: 04/15/2020 REASON FOR FOLLOWUP VISIT: Acute Covid-19 pneumonia. INTERVAL HISTORY: Patient is currently afebrile. The patient is breathing comfortably. The patient has been transferred down to the ICU because of worsening respiratory status and need for most supplemental oxygen. The patient denies having any chest pain. He is currently on a BiPAP. No nausea. No abdominal pain. No diarrhea. PHYSICAL EXAMINATION: Blood pressure 153/82 with a pulse of 56. Temperature is 96.6. She is 92% on BiPAP. General description is a middle-aged female up in the bed in no distress. Respiratory system: Unlabored breathing with decreased breath sounds in the base, with no wheeze. HEART: S1, S2. Regular rate and rhythm. Abdomen soft, no tenderness. LABS: D. dimer is up to 4.1, . CRP is 43.8. DIAGNOSTIC IMPRESSION AND PLAN: Patient with acute COVID-19 pneumonia with acute respiratory failure in this patient who is currently BiPAP dependent. Patient is covered with Solu-Medrol, Remdesivir, Lovenox dose may need to be adjusted up in view of the jump in the D-dimer. Monitor clinical course closely. Continue supportive care. MMODL / IJN: [id number] /
[2020-04-16] MEDS: ONDANSETRON 4 MG/2 ML VIAL IVP PRN ×2 (01:50→20:35)
[2020-04-16] MEDS: HYDROcodone/APAP 5-325MG 1 EACH TAB PO PRN ×2 (02:54→20:35)
[2020-04-16 05:20] LABS: Basophils % (A) 0 %; Eosinophils % (A) 0 %; HCT 40.6 % (34.0-46.0); HGB 12.7 gm/dL (11.4-16.0); Hypochromasia Slight; Lymphocytes # (A) 0.8 k/uL (1.0-4.8); Lymphocytes % (A) 6 %; MCH 25.9 pg (25.0-35.0); MCHC 31.3 g/dL (31.0-37.0); MCV 82.5 fL (80.0-100.0); Mean Platelet Volume 9.7; Monocytes # (A) 0.5 k/uL (0-1.0); Monocytes % (A) 4 %; Neutrophils # (A) 11.6 k/uL (1.3-7.7); Neutrophils % (A) 89 %; Platelet Count 220 k/uL (150-450); RBC 4.92 m/uL (3.80-5.40); RDW 15.1 % (11.5-15.5); WBC 13.1 k/uL (3.8-10.6)
[2020-04-16 05:36] LABS: C Reactive Protein 28.2 mg/L (<10.0); Calcium 8.8 mg/dL (8.4-10.2); Potassium 4.7 mmol/L (3.5-5.1)
[2020-04-16] MEDS: methylPREDNISolone SOD SUCCI 125 MG/2 ML VIAL IV SCH ×4 (06:16→23:36)
[2020-04-16 06:54] LABS: Glucose,Whole Blood 175 mg/dL (75-99)
[2020-04-16] MEDS: INSULIN ASPART (NovoLOG) 100 UNIT/ML VIAL SQ SCH ×4 (06:58→20:35)
[2020-04-16] MEDS: INSULIN DETEMIR (LEVEMIR) 100 UNIT/ML SYR SQ SCH (06:59)
--- NOTE | 2020-04-16 07:52 | XR ---
EXAMINATION TYPE: XR chest 1V DATE OF EXAM: 04/16/2020 COMPARISON: 04/15/2020 HISTORY: 64-year-old female shortness of breath TECHNIQUE: Single frontal view of the chest is obtained. FINDINGS: Spinal stimulator array centered along the mid to lower thoracic spinal canal. The heart remains enla rged. Diffuse groundglass airspace opacities persist without significant change. No sizable effusion. IMPRESSION: Stable cardiomegaly and diffuse groundglass airspace disease bilaterally. No significant change.
[2020-04-16] MEDS: SYMBICORT 80-4.5 MCG INHALER INHALATION SCH ×2 (08:06→20:54)
[2020-04-16] MEDS: ALBUTEROL HFA INHALER INHALATION SCH ×4 (08:06→20:53)
[2020-04-16] MEDS: ASCORBIC ACID 500 MG TAB PO SCH (09:07)
[2020-04-16] MEDS: ZINC SULFATE 220 MG CAP PO SCH (09:07)
[2020-04-16] MEDS: TRIAMCINOLONE 0.1% CREAM 80 GM TUBE TOPICAL SCH ×2 (09:07→20:36)
[2020-04-16] MEDS: NICOTINE 14MG/24HR PATCH TRANSDERM SCH (09:07)
[2020-04-16] MEDS: ENOXAPARIN 40 MG/0.4 ML SYRINGE SQ SCH ×2 (09:07→20:35)
[2020-04-16] MEDS: CLOPIDOGREL 75 MG TAB PO SCH (09:07)
[2020-04-16] MEDS: CHOLECALCIFEROL 400 UNIT TAB PO SCH (09:13)
[2020-04-16] MEDS: SERTRALINE 100 MG TAB PO SCH (09:13)
[2020-04-16 10:18] LABS: Ferritin 1095.6 ng/mL (10.0-291.0)
[2020-04-16] MEDS: FOLIC ACID 1 MG TAB PO SCH (11:24)
[2020-04-16 11:27] LABS: Glucose,Whole Blood 223 mg/dL (75-99)
--- NOTE | 2020-04-16 12:57 | P.PN ---
Subjective Progress Note Date: 04/16/20 Principal diagnosis: Acute CoVID 19 pneumonia The patient is seen today 04/15/2020 in follow-up in the intensive care unit. She was admitted back on 04/10/2020 with acute 19 pneumonia. Her oxygen requirements have continued to increase. She is currently on AirVo high flow oxygen at 60 L/m and 90% FiO2 along with a nonrebreather mask. Currently with an O2 saturation at 97%. Earlier this morning while turning she did drop into the 70s. Chest x-ray continues to show mild cardiomegaly and diffuse bilateral groundglass densities. No improvement compared to previous. White count 12.2. Hemoglobin 12.2. Lymphocytes 0.8. Sodium 139. Potassium 4.5. Creatinine 0.97. Glucose 256. This is day #4 of Remdesivir. She remains on IV Solu- Medrol, bronchodilators, Lovenox, vitamin supplements. NicoDerm patch in place. The patient is seen today 04/16/2020 in follow-up in the intensive care unit. She is currently awake and alert. She is still requiring high oxygen re quirements. Presently on airflow at 60 L and 90% FiO2. She's been alternating with BiPAP 12/5 and 75% FiO2. This is day #5 of her Remdesivir. She did receive convalescent plasma last night. She has 0.9 normal saline at 50 MLS per hour. Chest x-ray shows stable cardiomegaly with diffuse groundglass airspace disease bilaterally. No significant change compared to yesterday. White count 13.1. Hemoglobin 12.7. Lymphocytes 0.8. Sodium 140. Potassium 4.7. Creatinine 1.25. Ferritin 1095. C-reactive protein 28. Objective - Vital Signs Vital signs: Vital Signs Temp 98.0 F 04/16/20 08:00 Pulse 54 L 04/16/20 12:00 Resp 26 H 04/16/20 12:00 BP 167/83 04/16/20 12:00 Pulse Ox 95 04/16/20 12:27 Intake & Output 04/15/20 04/16/20 04/16/20 18:59 06:59 18:59 Intake Total 600 747 420 Output Total 840 1300 750 Balance -240 -553 -330 Weight 114.5 kg Intake: IV 600 550 300 Sodium Chloride 0.9% 1, 600 550 300 000 ml @ 50 mls/hr IV . Q20H [facility] Rx#:[id number] Oral 120 Blood Product 197 Ffp Pher Conval Covid19 197 Acda 1 Unit [id number] Output: Urine 840 1300 750 Other: Voiding Method Indwelling Catheter Indwelling Catheter Indwelling Catheter - Exam GENERAL EXAM: Alert, pleasant 64-year-old female patient, on high flowAirVo oxygen at 60 L and 90% FiO2 along with a nonrebreather mask, alternating with BiPAP 12/5 and 75% FiO2 to maintain O2 saturations in the 90s, moderate respiratory distress. HEAD: Normocephalic. EYES: Normal reaction of pupils, equal size. NOSE: Clear with pink turbinates. THROAT: No erythema or exudates. NECK: No masses, no JVD. CHEST: No chest wall deformity. LUNGS: Equal air entry with diffuse bilateral coarse rhonchi CVS: S1 and S2 normal with no audible murmur, regular rhythm. ABDOMEN: No hepatosplenomegaly, normal bowel sounds, no guarding or rigidity. SPINE: No scoliosis or deformity SKIN: No rashes CENTRAL NERVOUS SYSTEM: No focal deficits, tone is normal in all 4 extremities. EXTREMITIES: There is no peripheral edema. No clubbing, no cyanosis. Peripheral pulses are intact. - Labs CBC & Chem 7: 04/16/20 04:17 04/16/20 04:17 Labs: Abnormal Lab Results - Last 24 Hours (Table) 04/15/20 04/15/20 04/15/20 Range/Units 09:23 17:27 20:27 WBC (3.8-10.6) k/uL Neutrophils # (1.3-7.7) k/uL Lymphocytes # (1.0-4.8) k/uL Chloride (98-107) mmol/L BUN (7-17) mg/dL Creatinine (0.52-1.04) mg/dL Glucose (74-99) mg/dL POC Glucose (mg/dL) 220 H 205 H (75-99) mg/dL Ferritin 1270.3 H (10.0-291.0) ng/mL C-Reactive Protein (<10.0) mg/L 04/16/20 04/16/20 04/16/20 Range/Units 04:17 04:17 06:52 WBC 13.1 H (3.8-10.6) k/uL Neutrophils # 11.6 H (1.3-7.7) k/uL Lymphocytes # 0.8 L (1.0-4.8) k/uL Chloride 109 H (98-107) mmol/L BUN 40 H (7-17) mg/dL Creatinine 1.25 H (0.52-1.04) mg/dL Glucose 168 H (74-99) mg/dL POC Glucose (mg/dL) 175 H (75-99) mg/dL Ferritin 1095.6 H (10.0-291.0) ng/mL C-Reactive Protein 28.2 H (<10.0) mg/L 04/16/20 Range/Units 11:26 WBC (3.8-10.6) k/uL Neutrophils # (1.3-7.7) k/uL Lymphocytes # (1.0-4.8) k/uL Chloride (98-107) mmol/L BUN (7-17) mg/dL Creatinine (0.52-1.04) mg/dL Glucose (74-99) mg/dL POC Glucose (mg/dL) 223 H (75-99) mg/dL Ferritin (10.0-291.0) ng/mL C-Reactive Protein (<10.0) mg/L Assessment and Plan Assessment: 1 Acute hypoxic respiratory failure secondary to acute CoVID 19 pneumonia. This is day 5 of Remdesivir. She received convalescent plasma last night, remains on IV Solu-Medrol and bronchodilators 2 Altered mental status secondary to above 3 Chronic obstructive pulmonary disease 4 Chronic tobacco dependence 5 History of coronary disease 6 History of CVA 7 Diabetes mellitus 8 Hyperlipidemia 9 Hypertension 10 Degenerative joint disease 11 History of gastric ulcer 12 Previous history of brain aneurysm, treated with coil Plan: The patient was seen and evaluated by Dr. Matute Chest x-ray and labs reviewed Continued with high flow oxygen, alternating with BiPAP Continue Remdesivir, Lovenox, IV Solu-Medrol Received convalescent plasma Continue vitamin supplementation May require intubation and mechanical ventilatory support We will continue to follow her closely in the ICU and make further recommendations based on her clinical status Critical care time 36 minutes I, the cosigning physician, performed a history & physical examination of the patient. Lungs sounds with diffuse bilateral scattered rhonchi. Maintaining good O2 saturations in the 90s on 90% FiO2 and 60 L per AirVo along with a nonrebreather mask to maintain O2 saturation in the 90s. I discussed the assessment and plan of care with my nurse practitioner, Neli Mejia. I attest to the above note as dictated by her. Time with Patient: Greater than 30
[2020-04-16 13:14] VITALS: BMI 47.7
[2020-04-16] MEDS: SODIUM CHLORIDE 0.9% 1,000 ML IV SCH (17:24)
[2020-04-16] MEDS: REMDESIVIR 100 MG in SODIUM CHLORIDE 0.9% 250 ML IVPB SCH (17:24)
[2020-04-16 17:29] LABS: Glucose,Whole Blood 158 mg/dL (75-99)
--- NOTE | 2020-04-16 20:18 | PN ---
PROGRESS NOTE DATE OF SERVICE: 04/16/2020 REASON FOR FOLLOWUP: COVID-19 pneumonia. INTERVAL HISTORY: Patient is currently afebrile, still requiring high-flow oxygen though slight improvement compared to yesterday. Also received a dose of plasma. Denies having any chest pain. Minimal cough. No nausea, no vomiting. No abdominal pain or diarrhea. PHYSICAL EXAMINATION: Blood pressure 149/70 with a pulse of 58, temperature 98. She is 99% on high-flow oxygen. General description is a middle-aged female lying in bed in no distress. Respiratory system: Unlabored breathing with decreased intense breath sounds. No wheeze. Heart S1, S2. Regular rate and rhythm. Abdomen soft, no tenderness. LABS: Hemoglobin is 12 with white count 13.9, BUN of 40, creatinine 1.25. DIAGNOSTIC IMPRESSION AND PLAN: Patient with acute COVID-19 infection. The chest x-ray stable with no significant change. Mild improvement symptomatically. Continue with Lovenox, Solu-Medrol, has completed Remdesivir therapy. Continue supportive care. MMODL / EDITHN: [id number] /
[2020-04-16 20:26] LABS: Glucose,Whole Blood 196 mg/dL (75-99)
[2020-04-16] MEDS: PANTOPRAZOLE 40 MG/10 ML VIAL IVP SCH (21:43)
--- NOTE | 2020-04-16 22:35 | P.PN ---
Subjective Progress Note Date: 04/15/20 Principal diagnosis: Acute Covid virus pneumonia Patient is a 64-year-old female was admitted to the hospital but bilateral Covid pneumonia and acute hypoxic respiratory failure. 04/15/2020 Patient is currently in the MICU. on airvo at high flow oxygen at 60 L/m and 90% FiO2. Chest x-ray showed mild cardiomegaly and diffuse bilateral groundglass densities. No improvement compared to previous. Laboratory showed WBC 12.2, hemoglobin 12.2, lymphocytes 0.8, sodium 139, potassium 4.5, creatinine 0.97 and blood sugar is 256. Patient is being continued on remdesivir day 4, IV Solu- Medrol Lovenox and vitamin supplementation breathing treatments. Pulmonary is following. Current medications reviewed. Objective - Vital Signs Vital signs: Vital Signs Temp 97.5 F L 04/15/20 12:00 Pulse 52 L 04/15/20 16:30 Resp 24 04/15/20 16:30 BP 167/83 04/15/20 16:30 Pulse Ox 96 04/15/20 16:30 Intake & Output 04/14/20 04/15/20 04/15/20 18:59 06:59 18:59 Intake Total 100 790 550 Output Total 100 715 780 Balance 0 75 -230 Weight 114.5 kg Intake: IV 100 550 550 Sodium Chloride 0.9% 1, 100 550 550 000 ml @ 50 mls/hr IV . Q20H [facility] Rx#:[id number] Oral 240 Output: Urine 100 715 780 Other: Voiding Method Indwelling Catheter Indwelling Catheter Indwelling Catheter - Exam PHYSICAL EXAMINATION: Patient is lying in the bed comfortably, no acute distress, awake alert and oriented.. HEENT: Normocephalic. Neck is supple. Pupils reactive. Nostrils clear. Oral cavity is moist. Ears reveal no drainage. Neck reveals no JVD, carotid bruits, or thyromegaly. CHEST EXAMINATION: Trachea is central. Symmetrical expansion. Bilateral coarse breath sounds. Nonlabored breathing.. CARDIAC: Normal S1, S2 with no gallops. No murmurs ABDOMEN: Soft. Bowel sounds normal. No organomegaly. No abdominal bruits. Extremities: reveal no edema. No clubbing or cyanosis Neurologically awake, alert, oriented x3 with well-coordinated movements. No focal deficits noted Skin: No rash or skin lesions. Psychiatric: Coperative. Nonsuicidal Musculoskeletal: No joint swelling or deformity. Normal range of motion. - Labs CBC & Chem 7: 04/16/20 04:17 04/16/20 04:17 Labs: Abnormal Lab Results - Last 24 Hours (Table) 04/14/20 04/15/20 04/15/20 Range/Units 17:33 04:10 04:10 WBC 12.2 H (3.8-10.6) k/uL Neutrophils # 10.6 H (1.3-7.7) k/uL Lymphocytes # 0.8 L (1.0-4.8) k/uL D-Dimer (<0.60) mg/L FEU Chloride 113 H (98-107) mmol/L Carbon Dioxide 19 L (22-30) mmol/L BUN 38 H (7-17) mg/dL Glucose 256 H (74-99) mg/dL POC Glucose (mg/dL) 272 H (75-99) mg/dL C-Reactive Protein (<10.0) mg/L 04/15/20 04/15/20 04/15/20 Range/Units 07:04 09:23 09:23 WBC (3.8-10.6) k/uL Neutrophils # (1.3-7.7) k/uL Lymphocytes # (1.0-4.8) k/uL D-Dimer 4.13 H (<0.60) mg/L FEU Chloride (98-107) mmol/L Carbon Dioxide (22-30) mmol/L BUN (7-17) mg/dL Glucose (74-99) mg/dL POC Glucose (mg/dL) 260 H (75-99) mg/dL C-Reactive Protein 43.8 H (<10.0) mg/L 04/15/20 Range/Units 12:27 WBC (3.8-10.6) k/uL Neutrophils # (1.3-7.7) k/uL Lymphocytes # (1.0-4.8) k/uL D-Dimer (<0.60) mg/L FEU Chloride (98-107) mmol/L Carbon Dioxide (22-30) mmol/L BUN (7-17) mg/dL Glucose (74-99) mg/dL POC Glucose (mg/dL) 176 H (75-99) mg/dL C-Reactive Protein (<10.0) mg/L Assessment and Plan Assessment: Acute bilateral extensive pneumonia secondary to COVID-19 interstitial pneumonia with acute hypoxic respiratory failure present on admission currently on remdesivir Altered mental status UTI acute metabolic encephalopathy secondary to COVID-19 pneumonia Bilateral lateral strokes history Increasing creatinine with CKD stage III. 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 Discussed with remdesivir continue with Lovenox and Solu-Medrol. Pulmonary is following as well. Prognosis guarded with multimedical problems and comorbid conditions. We will continue to follow closely. Time with Patient: Greater than 30
--- NOTE | 2020-04-16 22:37 | P.PN ---
Subjective Progress Note Date: 04/16/20 Principal diagnosis: Acute Covid virus pneumonia Patient is a 64-year-old female was admitted to the hospital but bilateral Covid pneumonia and acute hypoxic respiratory failure. 04/15/2020 Patient is currently in the MICU. on airvo at high flow oxygen at 60 L/m and 90% FiO2. Chest x-ray showed mild cardiomegaly and diffuse bilateral groundglass densities. No improvement compared to previous. Laboratory showed WBC 12.2, hemoglobin 12.2, lymphocytes 0.8, sodium 139, potassium 4.5, creatinine 0.97 and blood sugar is 256. Patient is being continued on remdesivir day 4, IV Solu- Medrol Lovenox and vitamin supplementation breathing treatments. Pulmonary is following. 04/16/2020 Patient remains in intensive care unit. Currently awake alert oriented x3. Presently on airvo at 60 L and 90% FiO2. Patient is otherwise awake alert and oriented x3. Patient did receive convalescent plasma last night. Chest x-ray showed stable cardiomegaly and diffuse groundglass airspace of disease bilaterally no significant change compared to yesterday. Lab data reviewed. Current medications reviewed. Objective - Vital Signs Vital signs: Vital Signs Temp 98.0 F 04/16/20 16:00 Pulse 54 L 04/16/20 17:00 Resp 28 H 04/16/20 17:00 BP 152/131 04/16/20 17:00 Pulse Ox 97 04/16/20 17:08 Intake & Output 04/15/20 04/16/20 04/16/20 18:59 06:59 18:59 Intake Total 600 747 670 Output Total 840 1300 1295 Balance -240 -553 -625 Weight 114.5 kg 114.5 kg Intake: IV 600 550 550 Sodium Chloride 0.9% 1, 600 550 550 000 ml @ 50 mls/hr IV . Q20H [facility] Rx#:[id number] Oral 120 Blood Product 197 Ffp Pher Conval Covid19 197 Acda 1 Unit [id number] Output: Urine 840 1300 1295 Other: Voiding Method Indwelling Catheter Indwelling Catheter Indwelling Catheter - Exam PHYSICAL EXAMINATION: Patient is lying in the bed comfortably, no acute distress, awake alert and oriented.. HEENT: Normocephalic. Neck is supple. Pupils reactive. Nostrils clear. Oral cavity is moist. Ears reveal no drainage. Neck reveals no JVD, carotid bruits, or thyromegaly. CHEST EXAMINATION: Trachea is central. Symmetrical expansion. Bilateral coarse breath sounds. Nonlabored breathing.. CARDIAC: Normal S1, S2 with no gallops. No murmurs ABDOMEN: Soft. Bowel sounds normal. No organomegaly. No abdominal bruits. Extremities: reveal no edema. No clubbing or cyanosis Neurologically awake, alert, oriented x3 with well-coordinated movements. No focal deficits noted Skin: No rash or skin lesions. Psychiatric: Coperative. Nonsuicidal Musculoskeletal: No joint swelling or deformity. Normal range of motion. - Labs CBC & Chem 7: 04/16/20 04:17 04/16/20 04:17 Labs: Abnormal Lab Results - Last 24 Hours (Table) 04/15/20 04/15/20 04/15/20 Range/Units 09:23 17:27 20:27 WBC (3.8-10.6) k/uL Neutrophils # (1.3-7.7) k/uL Lymphocytes # (1.0-4.8) k/uL Chloride (98-107) mmol/L BUN (7-17) mg/dL Creatinine (0.52-1.04) mg/dL Glucose (74-99) mg/dL POC Glucose (mg/dL) 220 H 205 H (75-99) mg/dL Ferritin 1270.3 H (10.0-291.0) ng/mL C-Reactive Protein (<10.0) mg/L 04/16/20 04/16/20 04/16/20 Range/Units 04:17 04:17 06:52 WBC 13.1 H (3.8-10.6) k/uL Neutrophils # 11.6 H (1.3-7.7) k/uL Lymphocytes # 0.8 L (1.0-4.8) k/uL Chloride 109 H (98-107) mmol/L BUN 40 H (7-17) mg/dL Creatinine 1.25 H (0.52-1.04) mg/dL Glucose 168 H (74-99) mg/dL POC Glucose (mg/dL) 175 H (75-99) mg/dL Ferritin 1095.6 H (10.0-291.0) ng/mL C-Reactive Protein 28.2 H (<10.0) mg/L 04/16/20 Range/Units 11:26 WBC (3.8-10.6) k/uL Neutrophils # (1.3-7.7) k/uL Lymphocytes # (1.0-4.8) k/uL Chloride (98-107) mmol/L BUN (7-17) mg/dL Creatinine (0.52-1.04) mg/dL Glucose (74-99) mg/dL POC Glucose (mg/dL) 223 H (75-99) mg/dL Ferritin (10.0-291.0) ng/mL C-Reactive Protein (<10.0) mg/L Assessment and Plan Assessment: Acute bilateral extensive pneumonia secondary to COVID-19 interstitial pneumonia with acute hypoxic respiratory failure present on admission currently on remdesivir.Status post convalescent plasma infusion. Altered mental status UTI acute metabolic encephalopathy secondary to COVID-19 pneumonia Bilateral lateral strokes history Increasing creatinine with CKD stage III. 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 Discussed with remdesivir continue with Lovenox and Solu-Medrol. Pulmonary is following as well. Prognosis guarded with multimedical problems and comorbid conditions. We will continue to follow closely. Time with Patient: Greater than 30
[2020-04-16] MEDS ORDERED: MORPHINE SULFATE 2 MG/ML SYRINGE IVP STA (23:24)
[2020-04-16] MEDS: DOCUSATE 100 MG CAP PO SCH (23:36)
[2020-04-17 04:27] LABS: Basophils # (A) 0.1 k/uL (0-0.2); Basophils % (A) 0 %; Eosinophils # (A) 0.1 k/uL (0-0.7); Eosinophils % (A) 1 %; HCT 41.5 % (34.0-46.0); HGB 13.4 gm/dL (11.4-16.0); Lymphocytes # (A) 0.8 k/uL (1.0-4.8); Lymphocytes % (A) 5 %; MCH 26.2 pg (25.0-35.0); MCHC 32.4 g/dL (31.0-37.0); Mean Platelet Volume 9.2; Monocytes # (A) 0.6 k/uL (0-1.0); Monocytes % (A) 4 %; Neutrophils # (A) 13.5 k/uL (1.3-7.7); Neutrophils % (A) 89 %; Platelet Count 227 k/uL (150-450); RBC 5.13 m/uL (3.80-5.40); WBC 15.2 k/uL (3.8-10.6)
[2020-04-17 04:29] LABS: Calcium 8.5 mg/dL (8.4-10.2); Potassium 4.1 mmol/L (3.5-5.1)
[2020-04-17 06:46] LABS: Glucose,Whole Blood 192 mg/dL (75-99)
[2020-04-17] MEDS: INSULIN DETEMIR (LEVEMIR) 100 UNIT/ML SYR SQ SCH (06:46)
[2020-04-17] MEDS: methylPREDNISolone SOD SUCCI 125 MG/2 ML VIAL IV SCH ×4 (06:46→23:22)
[2020-04-17] MEDS: INSULIN ASPART (NovoLOG) 100 UNIT/ML VIAL SQ SCH ×4 (06:50→20:11)
--- NOTE | 2020-04-17 07:43 | P.PN ---
Subjective Progress Note Date: 04/17/20 70-year-old female patient with COVID 19 related to pneumonia with secondary hypoxic respiratory failure who was admitted on 04/10/2020. The patient progressive worsening in hypoxemic respiratory failure and the patient is currently on high flow oxygen 60 L/m visit cannula with an FiO2 of 80% and 100%nonrebreather facemask. The patient is also utilizing BiPAP on and off at a pressure of 12/5 cm of water on Effexor 75%. The patient has completed a total of 5 day course of Remdesivir and the patient has received a unit of convalescent plasma. The patient currently is on IV Solu-Medrol. The patient is on Lovenox, vitamin supplements including C and D a chest x-ray showing diffuse groundglass bilateral pulmonary infiltrates. CRP from yesterday was 28 and ferritin from yesterday was 1095. The patient also had a component of encephalopathy related to Covid 19 infection overlapping with toxic metabolic encephalopathy related to an acute kidney injury improved. The patient's comorbid conditions include coronary artery disease, COPD, previous history of CVA and history of multiple strokes in the frontal and left cerebellar and right occipital help of a ruptured brain aneurysm in 2009 and diabetes mellitus and hypertension hyperlipidemia. The patient at the previous myocardial infarction. The patient's condition is also complicated by history of REGULATORY AND COMPLIANCE TECHNICIAN aneurysm, kidney stones and history of pyelonephritis. on today's evaluation, the patient is much more awake and alert and there is no altered mentation. She was taken off the BiPAP still. Resting comfortably in bed on high flow oxygen and 100% nonrebreather facemask. Objective - Vital Signs Vital signs: Vital Signs Temp 98.6 F 04/17/20 04:00 Pulse 52 L 04/17/20 07:00 Resp 17 04/17/20 07:00 BP 160/91 04/17/20 07:00 Pulse Ox 96 04/17/20 07:00 Intake & Output 04/16/20 04/17/20 04/17/20 18:59 06:59 18:59 Intake Total 1320 600 250 Output Total 1355 1085 60 Balance -35 485 190 Weight 114.5 kg 113.5 kg Intake: IV 600 600 50 Sodium Chloride 0.9% 1, 600 600 50 000 ml @ 50 mls/hr IV . Q20H [facility] Rx#:[id number] Oral 720 200 Output: Urine 1355 1085 60 Other: Voiding Method Indwelling Catheter Indwelling Catheter - Exam GENERAL EXAM: Alert, pleasant 64-year-old female patient, on high flowAirVo oxygen at 60 L and 90% FiO2 along with a nonrebreather mask, alternating with BiPAP 12/5 and 75% FiO2 to maintain O2 saturations in the 90s, moderate respiratory distress. HEAD: Normocephalic. EYES: Normal reaction of pupils, equal size. NOSE: Clear with pink turbinates. THROAT: No erythema or exudates. NECK: No masses, no JVD. CHEST: No chest wall deformity. LUNGS: Equal air entry with diffuse bilateral coarse rhonchi CVS: S1 and S2 normal with no audible murmur, regular rhythm. ABDOMEN: No hepatosplenomegaly, normal bowel sounds, no guarding or rigidity. SPINE: No scoliosis or deformity SKIN: No rashes CENTRAL NERVOUS SYSTEM: No focal deficits, tone is normal in all 4 extremities. EXTREMITIES: There is no peripheral edema. No clubbing, no cyanosis. Peripheral pulses are intact. - Labs CBC & Chem 7: 04/17/20 03:24 04/17/20 03:24 Labs: Abnormal Lab Results - Last 24 Hours (Table) 04/16/20 04/16/20 04/16/20 Range/Units 04:17 11:26 17:28 WBC (3.8-10.6) k/uL Neutrophils # (1.3-7.7) k/uL Lymphocytes # (1.0-4.8) k/uL BUN (7-17) mg/dL Creatinine (0.52-1.04) mg/dL Glucose (74-99) mg/dL POC Glucose (mg/dL) 223 H 158 H (75-99) mg/dL Ferritin 1095.6 H (10.0-291.0) ng/mL 04/16/20 04/17/20 04/17/20 Range/Units 20:25 03:24 03:24 WBC 15.2 H (3.8-10.6) k/uL Neutrophils # 13.5 H (1.3-7.7) k/uL Lymphocytes # 0.8 L (1.0-4.8) k/uL BUN 36 H (7-17) mg/dL Creatinine 1.14 H (0.52-1.04) mg/dL Glucose 152 H (74-99) mg/dL POC Glucose (mg/dL) 196 H (75-99) mg/dL Ferritin (10.0-291.0) ng/mL 04/17/20 Range/Units 06:45 WBC (3.8-10.6) k/uL Neutrophils # (1.3-7.7) k/uL Lymphocytes # (1.0-4.8) k/uL BUN (7-17) mg/dL Creatinine (0.52-1.04) mg/dL Glucose (74-99) mg/dL POC Glucose (mg/dL) 192 H (75-99) mg/dL Ferritin (10.0-291.0) ng/mL Assessment and Plan Plan: 1 Acute hypoxic respiratory failure secondary to acute CoVID 19 pneumonia. completed Remdesivir. She received 1 unit of convalescent plasma , remains on IV Solu-Medrol and bronchodilators 2 Altered mental status secondary to above, improved and the patient's mother status is normal 3 Chronic obstructive pulmonary disease 4 Chronic tobacco dependence 5 History of coronary disease 6 History of CVA 7 Diabetes mellitus 8 Hyperlipidemia 9 Hypertension 10 Degenerative joint disease 11 History of gastric ulcer 12 Previous history of brain aneurysm, treated with coil , along with a previous history of bilateral CVAs Plan: Continued with high flow oxygen, alternating with BiPAP completed Remdesivir, Lovenox 40 mg subcu twice a day for a d-dimer of 4.9, IV Solu-Medrol Received convalescent plasma Continue vitamin supplementation May require intubation and mechanical ventilatory support We will continue to follow her closely in the ICU and make further recommendations based on her clinical status condition is critical. No other changes for now. We'll continue to follow. Critically care evaluation, more than 30 minutes. Time with Patient: Greater than 30
[2020-04-17] MEDS: SYMBICORT 80-4.5 MCG INHALER INHALATION SCH ×2 (08:01→20:22)
[2020-04-17] MEDS: ALBUTEROL HFA INHALER INHALATION SCH ×4 (08:01→20:22)
[2020-04-17] MEDS: NICOTINE 14MG/24HR PATCH TRANSDERM SCH (08:55)
[2020-04-17] MEDS: PANTOPRAZOLE 40 MG/10 ML VIAL IVP SCH (08:55)
[2020-04-17] MEDS: ENOXAPARIN 40 MG/0.4 ML SYRINGE SQ SCH ×2 (08:55→19:45)
[2020-04-17] MEDS: ONDANSETRON 4 MG/2 ML VIAL IVP PRN ×2 (08:56→20:12)
[2020-04-17] MEDS: DOCUSATE 100 MG CAP PO SCH (08:56)
[2020-04-17] MEDS: CHOLECALCIFEROL 400 UNIT TAB PO SCH (08:56)
[2020-04-17] MEDS: ASCORBIC ACID 500 MG TAB PO SCH (08:56)
[2020-04-17] MEDS: ZINC SULFATE 220 MG CAP PO SCH (08:56)
[2020-04-17] MEDS: CLOPIDOGREL 75 MG TAB PO SCH (08:56)
[2020-04-17] MEDS: SERTRALINE 100 MG TAB PO SCH (08:56)
[2020-04-17] MEDS: TRIAMCINOLONE 0.1% CREAM 80 GM TUBE TOPICAL SCH ×2 (08:56→19:45)
[2020-04-17] MEDS: FOLIC ACID 1 MG TAB PO SCH (12:14)
[2020-04-17 12:22] LABS: Glucose,Whole Blood 171 mg/dL (75-99)
[2020-04-17] MEDS ORDERED: CLEVIDIPINE BUTYRATE 25 MG in EMPTY BAG 1 BAG IV SCH (16:30)
[2020-04-17 17:39] LABS: Glucose,Whole Blood 169 mg/dL (75-99)
[2020-04-17] MEDS: polyethylene glycoL 3350 17 GM POWD.PACK PO PRN (17:42)
[2020-04-17] MEDS: SODIUM CHLORIDE 0.9% 1,000 ML IV SCH (17:42)
--- NOTE | 2020-04-17 18:13 | P.PN ---
Subjective Acute Covid virus pneumonia Patient is a 64-year-old female was admitted to the hospital but bilateral Covid pneumonia and acute hypoxic respiratory failure. 04/15/2020 Patient is currently in the MICU. on airvo at high flow oxygen at 60 L/m and 90% FiO2. Chest x-ray showed mild cardiomegaly and diffuse bilateral groundglass densities. No improvement compared to previous. Laboratory showed WBC 12.2, hemoglobin 12.2, lymphocytes 0.8, sodium 139, potassium 4.5, creatinine 0.97 and blood sugar is 256. Patient is being continued on remdesivir day 4, IV Solu- Medrol Lovenox and vitamin supplementation breathing treatments. Pulmonary is following. 04/16/2020 Patient remains in intensive care unit. Currently awake alert oriented x3. Presently on airvo at 60 L and 90% FiO2. Patient is otherwise awake alert and oriented x3. Patient did receive convalescent plasma last night. Chest x-ray showed stable cardiomegaly and diffuse groundglass airspace of disease bilaterally no significant change compared to yesterday. Lab data reviewed. 04/17/2020 Patient to is being started on cleviprex elevated blood pressure. Patient remains on high-dose systemic steroids. Patient received convalescent plasma couple days ago. Current medications reviewed. Objective - Vital Signs Vital signs: Vital Signs Temp 98.1 F 04/17/20 16:00 Pulse 54 L 04/17/20 17:00 Resp 23 04/17/20 17:00 BP 179/99 04/17/20 17:00 Pulse Ox 99 04/17/20 17:00 Intake & Output 04/16/20 04/17/20 04/17/20 18:59 06:59 18:59 Intake Total 1320 600 895 Output Total 1355 1085 841 Balance -35 -485 54 Weight 114.5 kg 113.5 kg Intake: IV 600 600 695 Sodium Chloride 0.9% 1, 600 600 695 000 ml @ 75 mls/hr IV . [id number] [facility] Rx#:[id number] Oral 720 200 Output: Urine 1355 1085 841 Other: Voiding Method Indwelling Catheter Indwelling Catheter Indwelling Catheter - Exam PHYSICAL EXAMINATION: Patient is lying in the bed comfortably, no acute distress, awake alert and oriented.. HEENT: Normocephalic. Neck is supple. Pupils reactive. Nostrils clear. Oral cavity is moist. Ears reveal no drainage. Neck reveals no JVD, carotid bruits, or thyromegaly. CHEST EXAMINATION: Trachea is central. Symmetrical expansion. Bilateral coarse breath sounds. Nonlabored breathing.. CARDIAC: Normal S1, S2 with no gallops. No murmurs ABDOMEN: Soft. Bowel sounds normal. No organomegaly. No abdominal bruits. Extremities: reveal no edema. No clubbing or cyanosis Neurologically awake, alert, oriented x3 with well-coordinated movements. No focal deficits noted Skin: No rash or skin lesions. Psychiatric: Coperative. Nonsuicidal Musculoskeletal: No joint swelling or deformity. Normal range of motion. Note: Because of COVID 19 isolation, some of the history and physical exam findings are indirect and obtained from nursing staff, and other physician examinations to avoid unnecessary contact with the patient. - Labs CBC & Chem 7: 04/17/20 03:24 04/17/20 03:24 Labs: Abnormal Lab Results - Last 24 Hours (Table) 04/16/20 04/17/20 04/17/20 Range/Units 20:25 03:24 03:24 WBC 15.2 H (3.8-10.6) k/uL Neutrophils # 13.5 H (1.3-7.7) k/uL Lymphocytes # 0.8 L (1.0-4.8) k/uL BUN 36 H (7-17) mg/dL Creatinine 1.14 H (0.52-1.04) mg/dL Glucose 152 H (74-99) mg/dL POC Glucose (mg/dL) 196 H (75-99) mg/dL 04/17/20 04/17/20 04/17/20 Range/Units 06:45 12:19 17:26 WBC (3.8-10.6) k/uL Neutrophils # (1.3-7.7) k/uL Lymphocytes # (1.0-4.8) k/uL BUN (7-17) mg/dL Creatinine (0.52-1.04) mg/dL Glucose (74-99) mg/dL POC Glucose (mg/dL) 192 H 171 H 169 H (75-99) mg/dL Assessment and Plan Plan: Acute bilateral extensive pneumonia secondary to COVID-19 interstitial pneumonia with acute hypoxic respiratory failure present on admission completed remdesivir.Status post convalescent plasma infusion. 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
[2020-04-17] MEDS: amLODIPine 10 MG TAB PO SCH (19:08)
[2020-04-17] MEDS: SENNOSIDES 8.6 MG TAB PO SCH (19:45)
[2020-04-17 19:57] LABS: Glucose,Whole Blood 291 mg/dL (75-99)
[2020-04-17] MEDS: HYDROcodone/APAP 5-325MG 1 EACH TAB PO PRN (20:12)
[2020-04-17] MEDS: CLEVIDIPINE BUTYRATE 25 MG in EMPTY BAG 1 BAG IV SCH (21:15)
--- NOTE | 2020-04-17 22:38 | PN ---
PROGRESS NOTE DATE OF SERVICE: 04/17/2020 REASON FOR FOLLOWUP: COVID-19 infection. INTERVAL HISTORY: The patient is currently afebrile. She mentioned she is breathing comfortably; however, she is requiring high-flow oxygen. Denies having any chest pain. Minimal cough. It is dry. No nausea, no vomiting. No abdominal pain or diarrhea. PHYSICAL EXAMINATION: Her blood pressure is 194/78, pulse of 88, temperature 98. She is 98% on high-flow oxygen. General description is a middle-aged female up in the bed in no distress. RESPIRATORY SYSTEM: Unlabored breathing with decreased intensity of breath sounds. No wheeze. HEART: S1, S2. Regular rate and rhythm. ABDOMEN: Soft. No tenderness. LABS: Hemoglobin is 13.4, white count 15.2, BUN of 36, creatinine 1.14. DIAGNOSTIC IMPRESSION AND PLAN: Patient with acute COVID-19 infection with acute respiratory failure. The patient has completed her remdesivir therapy, currently on Solu-Medrol, Lovenox and zinc; to continue. Continue supportive care. MMODL / IJN: [id number] /
[2020-04-18 04:52] LABS: Basophils # (A) 0.1 k/uL (0-0.2); Basophils % (A) 1 %; Eosinophils # (A) 0.2 k/uL (0-0.7); Eosinophils % (A) 2 %; HGB 12.9 gm/dL (11.4-16.0); Lymphocytes # (A) 0.7 k/uL (1.0-4.8); Lymphocytes % (A) 6 %; MCHC 30.8 g/dL (31.0-37.0); MCV 81.2 fL (80.0-100.0); Mean Platelet Volume 9.2; Monocytes # (A) 0.3 k/uL (0-1.0); Monocytes % (A) 2 %; Neutrophils # (A) 11.3 k/uL (1.3-7.7); Neutrophils % (A) 89 %; Platelet Count 250 k/uL (150-450); RBC 5.17 m/uL (3.80-5.40); RDW 15.1 % (11.5-15.5); WBC 12.6 k/uL (3.8-10.6)
[2020-04-18 05:03] LABS: D-Dimer 3.24 mg/L FEU (<0.60); INR 1.1 (<1.2); Partial Thromboplastin Time 26.7 sec (22.0-30.0); Prothrombin Time 11.5 sec (9.0-12.0)
[2020-04-18 05:16] LABS: C Reactive Protein 31.5 mg/L (<10.0); Calcium 8.4 mg/dL (8.4-10.2); Magnesium 2.3 mg/dL (1.6-2.3); Total Bilirubin 0.6 mg/dL (0.2-1.3); Total Protein 5.9 g/dL (6.3-8.2)
[2020-04-18] MEDS: methylPREDNISolone SOD SUCCI 125 MG/2 ML VIAL IV SCH (06:30)
[2020-04-18] MEDS: CLEVIDIPINE BUTYRATE 25 MG in EMPTY BAG 1 BAG IV SCH (06:31)
[2020-04-18 06:41] LABS: Glucose,Whole Blood 160 mg/dL (75-99)
[2020-04-18] MEDS: INSULIN ASPART (NovoLOG) 100 UNIT/ML VIAL SQ SCH ×4 (06:43→20:37)
[2020-04-18] MEDS: INSULIN DETEMIR (LEVEMIR) 100 UNIT/ML SYR SQ SCH (06:43)
--- NOTE | 2020-04-18 07:59 | P.PN ---
Subjective Progress Note Date: 04/18/20 70-year-old female patient with COVID 19 related to pneumonia with secondary hypoxic respiratory failure who was admitted on 04/10/2020. The patient progressive worsening in hypoxemic respiratory failure and the patient is currently on high flow oxygen 60 L/m visit cannula with an FiO2 of 80% and 100%nonrebreather facemask. The patient is also utilizing BiPAP on and off at a pressure of 12/5 cm of water on Effexor 75%. The patient has completed a total of 5 day course of Remdesivir and the patient has received a unit of convalescent plasma. The patient currently is on IV Solu-Medrol. The patient is on Lovenox, vitamin supplements including C and D a chest x-ray showing diffuse groundglass bilateral pulmonary infiltrates. CRP from yesterday was 28 and ferritin from yesterday was 1095. The patient also had a component of encephalopathy related to Covid 19 infection overlapping with toxic metabolic encephalopathy related to an acute kidney injury improved. The patient's comorbid conditions include coronary artery disease, COPD, previous history of CVA and history of multiple strokes in the frontal and left cerebellar and right occipital help of a ruptured brain aneurysm in 2009 and diabetes mellitus and hypertension hyperlipidemia. The patient at the previous myocardial infarction. The patient's condition is also complicated by history of [employer] aneurysm, kidney stones and history of pyelonephritis. on today's evaluation, the patient is much more awake and alert and there is no altered mentation. She was taken off the BiPAP still. Resting comfortably in bed on high flow oxygen and 100% nonrebreather facemask. On today's evaluation of 04/18/2020, the patient is on a high flow oxygen at 6 L with an FiO2 of 70%. Her current pulse ox is around 94%. Chest x-ray showing cardiomegaly. There is some mild pulmonary vascular congestion. Probably slightly improved compared to yesterday. The patient is breathing comfortably. She was taken off the BiPAP. She is liking the high flow oxygen. She is on IV Solu-Medrol. I'm going to switch this back to Decadron 6 mg IV every 24 hours per protocol. Overnight, the blood pressure was elevated and the patient was started on a clevidipine drip which is currently running at 2 mg an hour. Her BP is under good control. Norvasc was restarted. She is also found to be in a positive fluid balance. She'll be started on Lasix today 40 mg IV push every 12 hours. She is on Lovenox DVT prophylaxis. She had a higher dose as the patient's d-dimer quite elevated and currently she is on Lovenox 40 mg subcu every 12 hours. She is handling some oral intake. White cell count of 12.6. No other significant events overnight. Objective - Vital Signs Vital signs: Vital Signs Temp 97.6 F 04/18/20 00:00 Pulse 54 L 04/18/20 07:00 Resp 24 04/18/20 07:00 BP 127/70 04/18/20 07:00 Pulse Ox 96 04/18/20 07:00 Intake & Output 04/17/20 04/18/20 04/18/20 18:59 06:59 18:59 Intake Total 895 1164.367 76.467 Output Total 841 1195 75 Balance 54 -30.633 1.467 Weight 113.1 kg Intake: IV 695 900 75 Sodium Chloride 0.9% 1, 695 900 75 000 ml @ 75 mls/hr IV . [id number] ERASMO Rx#:[id number] Intake, IV Titration 24.367 1.467 Amount Clevidipine Butyrate 25 24.367 1.467 mg In Empty Bag 1 bag @ 1 MG/HR 2 mls/hr IV .Q24H ERASMO Rx#:[id number] Oral 200 240 Output: Urine 841 1195 75 Other: Voiding Method Indwelling Catheter Indwelling Catheter - Exam GENERAL EXAM: Alert, pleasant 64-year-old female patient, on high flowAirVo oxygen at 60 L and 70% FiO2 along with a nonrebreather mask, alternating with BiPAP 12/5 and 75% FiO2 to maintain O2 saturations in the 90s, moderate respiratory distress.note that the patient is currently off the BiPAP. HEAD: Normocephalic. EYES: Normal reaction of pupils, equal size. NOSE: Clear with pink turbinates. THROAT: No erythema or exudates. NECK: No masses, no JVD. CHEST: No chest wall deformity. LUNGS: Equal air entry with diffuse bilateral coarse rhonchi CVS: S1 and S2 normal with no audible murmur, regular rhythm. ABDOMEN: No hepatosplenomegaly, normal bowel sounds, no guarding or rigidity. SPINE: No scoliosis or deformity SKIN: No rashes CENTRAL NERVOUS SYSTEM: No focal deficits, tone is normal in all 4 extremities. EXTREMITIES: There is no peripheral edema. No clubbing, no cyanosis. Peripheral pulses are intact. - Labs CBC & Chem 7: 04/18/20 04:19 04/18/20 04:19 Labs: Abnormal Lab Results - Last 24 Hours (Table) 04/17/20 04/17/20 04/17/20 Range/Units 12:19 17:26 19:55 WBC (3.8-10.6) k/uL MCHC (31.0-37.0) g/dL Neutrophils # (1.3-7.7) k/uL Lymphocytes # (1.0-4.8) k/uL D-Dimer (<0.60) mg/L FEU BUN (7-17) mg/dL Glucose (74-99) mg/dL POC Glucose (mg/dL) 171 H 169 H 291 H (75-99) mg/dL AST (14-36) U/L ALT (4-34) U/L Alkaline Phosphatase (38-126) U/L Lactate Dehydrogenase (313-618) U/L C-Reactive Protein (<10.0) mg/L Total Protein (6.3-8.2) g/dL Albumin (3.5-5.0) g/dL 04/18/20 04/18/20 04/18/20 Range/Units 04:19 04:19 04:19 WBC 12.6 H (3.8-10.6) k/uL MCHC 30.8 L (31.0-37.0) g/dL Neutrophils # 11.3 H (1.3-7.7) k/uL Lymphocytes # 0.7 L (1.0-4.8) k/uL D-Dimer 3.24 H (<0.60) mg/L FEU BUN 32 H (7-17) mg/dL Glucose 169 H (74-99) mg/dL POC Glucose (mg/dL) (75-99) mg/dL AST 61 H (14-36) U/L ALT 77 H (4-34) U/L Alkaline Phosphatase 158 H (38-126) U/L Lactate Dehydrogenase 2737 H (313-618) U/L C-Reactive Protein 31.5 H (<10.0) mg/L Total Protein 5.9 L (6.3-8.2) g/dL Albumin 3.0 L (3.5-5.0) g/dL 04/18/20 Range/Units 06:40 WBC (3.8-10.6) k/uL MCHC (31.0-37.0) g/dL Neutrophils # (1.3-7.7) k/uL Lymphocytes # (1.0-4.8) k/uL D-Dimer (<0.60) mg/L FEU BUN (7-17) mg/dL Glucose (74-99) mg/dL POC Glucose (mg/dL) 160 H (75-99) mg/dL AST (14-36) U/L ALT (4-34) U/L Alkaline Phosphatase (38-126) U/L Lactate Dehydrogenase (313-618) U/L C-Reactive Protein (<10.0) mg/L Total Protein (6.3-8.2) g/dL Albumin (3.5-5.0) g/dL Assessment and Plan Plan: 1 Acute hypoxic respiratory failure secondary to acute CoVID 19 pneumonia. completed Remdesivir. She received 1 unit of convalescent plasma , remains on IV Solu-Medrol and bronchodilators. she is currently on high flow oxygen at 6 L with an FiO2 of 70%. I'm going to switch this patient back to Decadron. She is not utilizing the BiPAP. Chest x-ray is stable, probably slightly improved. The patient is in a positive fluid overload. 2 Altered mental status secondary to above, improved and the patient's mother status is normal 3 Chronic obstructive pulmonary disease 4 Chronic tobacco dependence 5 History of coronary disease 6 History of CVA 7 Diabetes mellitus 8 Hyperlipidemia 9 Hypertension 10 Degenerative joint disease 11 History of gastric ulcer 12 Previous history of brain aneurysm, treated with coil , along with a previous history of bilateral CVAs Plan: Continued with high flow oxygen, and try to wean the FiO2 in the flow completed Remdesivir, Lovenox 40 mg subcu twice a day for a d-dimer of 4.9, stopped IV Solu Medrol put the patient on Decadron 6 mg IV push every 24 hours Received convalescent plasma Continue vitamin supplementation start the patient on Lasix 40 mg every 12 hours and Fluids to KVO We will continue to follow her closely in the ICU and make further recommendations based on her clinical status condition is critical. No other changes for now. We'll continue to follow. Critically care evaluation, more than 30 minutes. Time with Patient: Greater than 30 Time with Patient: Greater than 30
[2020-04-18] MEDS: TRIAMCINOLONE 0.1% CREAM 80 GM TUBE TOPICAL SCH ×2 (08:36→20:38)
[2020-04-18] MEDS: PANTOPRAZOLE 40 MG/10 ML VIAL IVP SCH (08:43)
[2020-04-18] MEDS: NICOTINE 14MG/24HR PATCH TRANSDERM SCH (08:43)
[2020-04-18] MEDS: ENOXAPARIN 40 MG/0.4 ML SYRINGE SQ SCH ×2 (08:43→20:37)
[2020-04-18] MEDS: SENNOSIDES 8.6 MG TAB PO SCH ×2 (08:44→20:37)
[2020-04-18] MEDS: FUROSEMIDE 10 MG/ML 4 ML VIAL IV SCH ×2 (08:44→20:37)
[2020-04-18] MEDS: DEXAMETHASONE SOD PHOSPHATE 10 MG/ML 1 ML VIAL IV SCH (08:44)
[2020-04-18] MEDS: ZINC SULFATE 220 MG CAP PO SCH (08:44)
[2020-04-18] MEDS: CLOPIDOGREL 75 MG TAB PO SCH (08:44)
[2020-04-18] MEDS: ASCORBIC ACID 500 MG TAB PO SCH (08:44)
[2020-04-18] MEDS: CHOLECALCIFEROL 400 UNIT TAB PO SCH (08:44)
[2020-04-18] MEDS: SERTRALINE 100 MG TAB PO SCH (08:44)
[2020-04-18] MEDS: ALBUTEROL HFA INHALER INHALATION SCH ×4 (09:10→20:22)
[2020-04-18] MEDS: SYMBICORT 80-4.5 MCG INHALER INHALATION SCH ×2 (09:10→20:22)
[2020-04-18 09:44] LABS: Ferritin 628.6 ng/mL (10.0-291.0)
--- NOTE | 2020-04-18 11:04 | XR ---
EXAMINATION TYPE: XR chest 1V portable DATE OF EXAM: 04/18/2020 COMPARISON: 04/16/2020 INDICATION: Covid TECHNIQUE: Single frontal view of the chest is obtained. FINDINGS: The heart size is prominent. The pulmonary vasculature is prominent. Patchy mild increase lung markings are present diffusely, slightly greater on the left. There is slig ht improvement on the right compared to the prior study. Stimulator leads are within the mid thoracic region. IMPRESSION: 1. Mild Improvement of diffuse infiltrate
[2020-04-18] MEDS: SODIUM CHLORIDE 0.9% 1,000 ML IV SCH (11:25)
[2020-04-18 11:33] LABS: Glucose,Whole Blood 194 mg/dL (75-99)
[2020-04-18] MEDS: FOLIC ACID 1 MG TAB PO SCH (11:58)
[2020-04-18] MEDS: polyethylene glycoL 3350 17 GM POWD.PACK PO PRN (11:58)
--- NOTE | 2020-04-18 15:12 | P.PN ---
Subjective Acute Covid virus pneumonia Patient is a 64-year-old female was admitted to the hospital but bilateral Covid pneumonia and acute hypoxic respiratory failure. 04/15/2020 Patient is currently in the MICU. on airvo at high flow oxygen at 60 L/m and 90% FiO2. Chest x-ray showed mild cardiomegaly and diffuse bilateral groundglass densities. No improvement compared to previous. Laboratory showed WBC 12.2, hemoglobin 12.2, lymphocytes 0.8, sodium 139, potassium 4.5, creatinine 0.97 and blood sugar is 256. Patient is being continued on remdesivir day 4, IV Solu- Medrol Lovenox and vitamin supplementation breathing treatments. Pulmonary is following. 04/16/2020 Patient remains in intensive care unit. Currently awake alert oriented x3. Presently on airvo at 60 L and 90% FiO2. Patient is otherwise awake alert and oriented x3. Patient did receive convalescent plasma last night. Chest x-ray showed stable cardiomegaly and diffuse groundglass airspace of disease bilaterally no significant change compared to yesterday. Lab data reviewed. 04/17/2020 Patient to is being started on cleviprex elevated blood pressure. Patient remains on high-dose systemic steroids. Patient received convalescent plasma couple days ago. 04/18/2020 Patient is still remains on same amount of oxygen as his today. Patient is on Airvo. Patient's IV calcium channel ginny will discuss reviewed and patient will continued on amlodipine. Patient appears to have pulmonary edema is receiving IV Lasix at this time. And receiving Lovenox for DVT prophylaxis Current medications reviewed. Objective - Vital Signs Vital signs: Vital Signs Temp 97.9 F 04/18/20 12:00 Pulse 63 04/18/20 14:00 Resp 24 04/18/20 14:00 BP 147/95 04/18/20 14:00 Pulse Ox 98 04/18/20 14:00 Intake & Output 04/17/20 04/18/20 04/18/20 18:59 06:59 18:59 Intake Total 895 1164.367 244.867 Output Total 841 1195 1499 Balance 54 -30.633 -1254.133 Weight 113.1 kg Intake: IV 695 900 230 Sodium Chloride 0.9% 1, 695 900 230 000 ml @ 20 mls/hr IV . Q24H ERASMO Rx#:[id number] Intake, IV Titration 24.367 14.867 Amount Clevidipine Butyrate 25 24.367 14.867 mg In Empty Bag 1 bag @ 1 MG/HR 2 mls/hr IV .Q24H ERASMO Rx#:[id number] Oral 200 240 Output: Urine 841 1195 1499 Other: Voiding Method Indwelling Catheter Indwelling Catheter Indwelling Catheter - Exam PHYSICAL EXAMINATION: Patient is lying in the bed comfortably, no acute distress, awake alert and o riented.. HEENT: Normocephalic. Neck is supple. Pupils reactive. Nostrils clear. Oral cavity is moist. Ears reveal no drainage. Neck reveals no JVD, carotid bruits, or thyromegaly. CHEST EXAMINATION: Trachea is central. Symmetrical expansion. Bilateral coarse breath sounds. Nonlabored breathing.. CARDIAC: Normal S1, S2 with no gallops. No murmurs ABDOMEN: Soft. Bowel sounds normal. No organomegaly. No abdominal bruits. Extremities: reveal no edema. No clubbing or cyanosis Neurologically awake, alert, oriented x3 with well-coordinated movements. No focal deficits noted Skin: No rash or skin lesions. Psychiatric: Coperative. Nonsuicidal Musculoskeletal: No joint swelling or deformity. Normal range of motion. Note: Because of COVID 19 isolation, some of the history and physical exam findings are indirect and obtained from nursing staff, and other physician exa minations to avoid unnecessary contact with the patient. - Labs CBC & Chem 7: 04/18/20 04:19 04/18/20 04:19 Labs: Abnormal Lab Results - Last 24 Hours (Table) 04/17/20 04/17/20 04/18/20 Range/Units 17:26 19:55 04:19 WBC 12.6 H (3.8-10.6) k/uL MCHC 30.8 L (31.0-37.0) g/dL Neutrophils # 11.3 H (1.3-7.7) k/uL Lymphocytes # 0.7 L (1.0-4.8) k/uL D-Dimer (<0.60) mg/L FEU BUN (7-17) mg/dL Glucose (74-99) mg/dL POC Glucose (mg/dL) 169 H 291 H (75-99) mg/dL Ferritin (10.0-291.0) ng/mL AST (14-36) U/L ALT (4-34) U/L Alkaline Phosphatase (38-126) U/L Lactate Dehydrogenase (313-618) U/L C-Reactive Protein (<10.0) mg/L Total Protein (6.3-8.2) g/dL Albumin (3.5-5.0) g/dL 04/18/20 04/18/20 04/18/20 Range/Units 04:19 04:19 06:40 WBC (3.8-10.6) k/uL MCHC (31.0-37.0) g/dL Neutrophils # (1.3-7.7) k/uL Lymphocytes # (1.0-4.8) k/uL D-Dimer 3.24 H (<0.60) mg/L FEU BUN 32 H (7-17) mg/dL Glucose 169 H (74-99) mg/dL POC Glucose (mg/dL) 160 H (75-99) mg/dL Ferritin 628.6 H (10.0-291.0) ng/mL AST 61 H (14-36) U/L ALT 77 H (4-34) U/L Alkaline Phosphatase 158 H (38-126) U/L Lactate Dehydrogenase 2737 H (313-618) U/L C-Reactive Protein 31.5 H (<10.0) mg/L Total Protein 5.9 L (6.3-8.2) g/dL Albumin 3.0 L (3.5-5.0) g/dL 04/18/20 Range/Units 11:31 WBC (3.8-10.6) k/uL MCHC (31.0-37.0) g/dL Neutrophils # (1.3-7.7) k/uL Lymphocytes # (1.0-4.8) k/uL D-Dimer (<0.60) mg/L FEU BUN (7-17) mg/dL Glucose (74-99) mg/dL POC Glucose (mg/dL) 194 H (75-99) mg/dL Ferritin (10.0-291.0) ng/mL AST (14-36) U/L ALT (4-34) U/L Alkaline Phosphatase (38-126) U/L Lactate Dehydrogenase (313-618) U/L C-Reactive Protein (<10.0) mg/L Total Protein (6.3-8.2) g/dL Albumin (3.5-5.0) g/dL Assessment and Plan Plan: Acute bilateral extensive pneumonia secondary to COVID-19 interstitial pneumonia with acute hypoxic respiratory failure present on admission completed remdesivir.Status post convalescent plasma infusion. Patient is presently on the oxygen with Airvo -Acute respiratory failure secondary to assessment #1 COPD without any acute exacerbation Altered mental status secondary to acute metabolic encephalopathy secondary to COVID-19 pneumonia -Acute renal failure prerenal azotemia: Patient's IV fluids will be increased Coronary artery disease History of CVA/TIA Diabetes type 2 GERD Hyperlipidemia History of [employer] aneurysm and coiling nicotine addiction Morbid obesity BMI 45.9 DVT prophylaxis
[2020-04-18 16:37] LABS: LD Isoenzymes 1 29 % (19-38); LD Isoenzymes 2 38 % (30-43); LD Isoenzymes 3 20 % (16-26); LD Isoenzymes 4 6 % (3-12); LD Isoenzymes 5 7 % (3-14); Lactacte Dehydrogenase(LD) ISO 855 U/L (120-250)
[2020-04-18 16:51] LABS: Glucose,Whole Blood 198 mg/dL (75-99)
[2020-04-18] MEDS: GABAPENTIN 400 MG CAP PO SCH ×2 (17:02→20:37)
[2020-04-18 20:30] LABS: Glucose,Whole Blood 186 mg/dL (75-99)
[2020-04-18] MEDS: ATORVASTATIN 40 MG TAB PO SCH (20:37)
[2020-04-18] MEDS: amLODIPine 10 MG TAB PO SCH (20:37)
--- NOTE | 2020-04-18 22:40 | PN ---
PROGRESS NOTE DATE OF SERVICE: 04/18/2020 REASON FOR FOLLOWUP: COVID-19 infection. INTERVAL HISTORY: The patient is currently afebrile. The patient is breathing more comfortably, still requiring high-flow nasal cannula oxygen for her respiratory support. The patient denies having any chest pain. Minimal cough. No nausea, no vomiting. No abdominal pain or diarrhea. PHYSICAL EXAMINATION: Blood pressure 128/77, pulse of 58, temperature 98. She is 95% on 50% FiO2. General description is a middle-aged female lying in bed in no distress. RESPIRATORY SYSTEM: Unlabored breathing with decreased intensity of breath sounds. No wheeze. HEART: S1, S2. Regular rate and rhythm. ABDOMEN: Soft. No tenderness. LABS: Hemoglobin is 12.3, white count 12.6. D-dimer is 3.24. Creatinine is 1.01. DIAGNOSTIC IMPRESSION AND PLAN: Patient with acute COVID-19 pneumonia with acute respiratory failure in this patient who did have significantly elevated inflammatory markers with concern for possible cytokine storm. Discussed further with Pulmonary. Patient is currently being treated with dexamethasone, Lovenox, zinc sulfate. She has completed her remdesivir therapy. Continue with supportive care. MMODL / IJN: [id number] /
[2020-04-19] MEDS ORDERED: Potassium Replacement Protocol 1 EACH MISC MISCELLANE PRN (02:10)
[2020-04-19] MEDS: POTASSIUM CHLORIDE ER 20 MEQ TAB.ER PO SCH ×4 (02:19→06:57)
[2020-04-19 04:08] LABS: Basophils # (A) 0.1 k/uL (0-0.2); Basophils % (A) 1 %; Eosinophils # (A) 0.2 k/uL (0-0.7); Eosinophils % (A) 1 %; HCT 39.8 % (34.0-46.0); HGB 13.1 gm/dL (11.4-16.0); Lymphocytes # (A) 1.5 k/uL (1.0-4.8); Lymphocytes % (A) 10 %; MCH 26.4 pg (25.0-35.0); Mean Platelet Volume 9.2; Monocytes # (A) 0.8 k/uL (0-1.0); Monocytes % (A) 5 %; Neutrophils # (A) 12.9 k/uL (1.3-7.7); Neutrophils % (A) 83 %; Platelet Count 186 k/uL (150-450); RBC 4.98 m/uL (3.80-5.40); RDW 14.9 % (11.5-15.5); WBC 15.5 k/uL (3.8-10.6)
[2020-04-19 04:37] LABS: C Reactive Protein 19.8 mg/L (<10.0); Calcium 8.3 mg/dL (8.4-10.2); Magnesium 2.2 mg/dL (1.6-2.3); Potassium 3.4 mmol/L (3.5-5.1); Total Bilirubin 0.8 mg/dL (0.2-1.3); Total Protein 5.9 g/dL (6.3-8.2)
[2020-04-19 04:48] LABS: D-Dimer 2.28 mg/L FEU (<0.60); INR 1.1 (<1.2); Partial Thromboplastin Time 26.2 sec (22.0-30.0); Prothrombin Time 11.4 sec (9.0-12.0)
[2020-04-19] MEDS: GLIMEPIRIDE 1 MG TAB PO SCH ×2 (06:48→19:43)
[2020-04-19] MEDS: INSULIN DETEMIR (LEVEMIR) 100 UNIT/ML SYR SQ SCH (06:57)
[2020-04-19] MEDS: INSULIN ASPART (NovoLOG) 100 UNIT/ML VIAL SQ SCH ×4 (06:58→20:34)
[2020-04-19 07:06] LABS: Glucose,Whole Blood 124 mg/dL (75-99)
--- NOTE | 2020-04-19 07:57 | P.PN ---
Subjective Progress Note Date: 04/19/20 70-year-old female patient with COVID 19 related to pneumonia with secondary hypoxic respiratory failure who was admitted on 04/10/2020. The patient progressive worsening in hypoxemic respiratory failure and the patient is currently on high flow oxygen 60 L/m visit cannula with an FiO2 of 80% and 100%nonrebreather facemask. The patient is also utilizing BiPAP on and off at a pressure of 12/5 cm of water on Effexor 75%. The patient has completed a total of 5 day course of Remdesivir and the patient has received a unit of convalescent plasma. The patient currently is on IV Solu-Medrol. The patient is on Lovenox, vitamin supplements including C and D a chest x-ray showing diffuse groundglass bilateral pulmonary infiltrates. CRP from yesterday was 28 and ferritin from yesterday was 1095. The patient also had a component of encephalopathy related to Covid 19 infection overlapping with toxic metabolic encephalopathy related to an acute kidney injury improved. The patient's comorbid conditions include coronary artery disease, COPD, previous history of CVA and history of multiple strokes in the frontal and left cerebellar and right occipital help of a ruptured brain aneurysm in 2009 and diabetes mellitus and hypertension hyperlipidemia. The patient at the previous myocardial infarction. The patient's condition is also complicated by history of YARN SALVAGER aneurysm, kidney stones and history of pyelonephritis. on today's evaluation, the patient is much more awake and alert and there is no altered mentation. She was taken off the BiPAP still. Resting comfortably in bed on high flow oxygen and 100% nonrebreather facemask. On today's evaluation of 04/18/2020, the patient is on a high flow oxygen at 6 L with an FiO2 of 70%. Her current pulse ox is around 94%. Chest x-ray showing cardiomegaly. There is some mild pulmonary vascular congestion. Probably slightly improved compared to yesterday. The patient is breathing comfortably. She was taken off the BiPAP. She is liking the high flow oxygen. She is on IV Solu-Medrol. I'm going to switch this back to Decadron 6 mg IV every 24 hours per protocol. Overnight, the blood pressure was elevated and the patient was started on a clevidipine drip which is currently running at 2 mg an hour. Her BP is under good control. Norvasc was restarted. She is also found to be in a positive fluid balance. She'll be started on Lasix today 40 mg IV push every 12 hours. She is on Lovenox DVT prophylaxis. She had a higher dose as the patient's d-dimer quite elevated and currently she is on Lovenox 40 mg subcu every 12 hours. She is handling some oral intake. White cell count of 12.6. No other significant events overnight. On today's evaluation of 04/19/2020, the patient is in good spirits. She is on 60 L of oxygen high flow. Her chest x-ray shows no major interval change, there may be some improvement in aeration. Nevertheless, the patient is quite active. She is communicating. She is able to sit up for that. She is tolerating diet. She has a congested cough. Unable to bring up much sputum. She still buzz aturates whenever she is off the high flow oxygen.she is on Lovenox for DVT prophylaxis. She is receiving IV Lasix 40 mg every 12 hours and her fluid balance is been negative. He remains on Lovenox 40 mg subcu every 12 hours.her blood pressures under adequate control and the patient is currently off the clevidipine drip. The patient's LDH is still elevated although slower is down to 2441. The patient has a CRP of 19 point images lower compared to yesterday. Objective - Vital Signs Vital signs: Vital Signs Temp 98.8 F 04/19/20 04:00 Pulse 60 04/19/20 07:00 Resp 20 04/19/20 07:00 BP 98/72 04/19/20 07:00 Pulse Ox 89 L 04/19/20 07:00 Intake & Output 04/18/20 04/19/20 04/19/20 18:59 06:59 18:59 Intake Total 384.867 220 20 Output Total 2695 1200 40 Balance -2310.133 -980 -20 Weight 113.6 kg Intake: IV 370 220 20 Sodium Chloride 0.9% 1, 370 220 20 000 ml @ 20 mls/hr IV . Q24H ERASMO Rx#:[id number] Intake, IV Titration 14.867 Amount Clevidipine Butyrate 25 14.867 mg In Empty Bag 1 bag @ 1 MG/HR 2 mls/hr IV .Q24H ERASMO Rx#:[id number] Output: Urine 2695 1200 40 Other: Voiding Method Indwelling Catheter Indwelling Catheter - Exam GENERAL EXAM: Alert, pleasant 64-year-old female patient, on high flowAirVo oxygen at 60 L and 45% FiO2 along with a nonrebreather mask, alternating with BiPAP 12/5 and 75% FiO2 to maintain O2 saturations in the 90s, moderate re spiratory distress.note that the patient is currently off the BiPAP. HEAD: Normocephalic. EYES: Normal reaction of pupils, equal size. NOSE: Clear with pink turbinates. THROAT: No erythema or exudates. NECK: No masses, no JVD. CHEST: No chest wall deformity. LUNGS: Equal air entry with diffuse bilateral coarse rhonchi CVS: S1 and S2 normal with no audible murmur, regular rhythm. ABDOMEN: No hepatosplenomegaly, normal bowel sounds, no guarding or rigidity. SPINE: No scoliosis or deformity SKIN: No rashes CENTRAL NERVOUS SYSTEM: No focal deficits, tone is normal in all 4 extremities. EXTREMITIES: There is no peripheral edema. No clubbing, no cyanosis. Peripheral pulses are intact. - Labs CBC & Chem 7: 04/19/20 03:26 04/19/20 03:26 Labs: Abnormal Lab Results - Last 24 Hours (Table) 04/16/20 04/18/20 04/18/20 Range/Units 04:17 04:19 11:31 WBC (3.8-10.6) k/uL Neutrophils # (1.3-7.7) k/uL D-Dimer (<0.60) mg/L FEU Potassium (3.5-5.1) mmol/L Carbon Dioxide (22-30) mmol/L BUN (7-17) mg/dL Creatinine (0.52-1.04) mg/dL Glucose (74-99) mg/dL POC Glucose (mg/dL) 194 H (75-99) mg/dL Calcium (8.4-10.2) mg/dL Ferritin 628.6 H (10.0-291.0) ng/mL AST (14-36) U/L ALT (4-34) U/L Alkaline Phosphatase (38-126) U/L Lactate Dehydrogenase (313-618) U/L LD Isoenzymes 855 H (120-250) U/L C-Reactive Protein (<10.0) mg/L Total Protein (6.3-8.2) g/dL Albumin (3.5-5.0) g/dL 04/18/20 04/18/20 04/18/20 Range/Units 16:49 20:16 20:28 WBC (3.8-10.6) k/uL Neutrophils # (1.3-7.7) k/uL D-Dimer (<0.60) mg/L FEU Potassium 3.2 L (3.5-5.1) mmol/L Carbon Dioxide (22-30) mmol/L BUN (7-17) mg/dL Creatinine (0.52-1.04) mg/dL Glucose (74-99) mg/dL POC Glucose (mg/dL) 198 H 186 H (75-99) mg/dL Calcium (8.4-10.2) mg/dL Ferritin (10.0-291.0) ng/mL AST (14-36) U/L ALT (4-34) U/L Alkaline Phosphatase (38-126) U/L Lactate Dehydrogenase (313-618) U/L LD Isoenzymes (120-250) U/L C-Reactive Protein (<10.0) mg/L Total Protein (6.3-8.2) g/dL Albumin (3.5-5.0) g/dL 04/19/20 04/19/20 04/19/20 Range/Units 03:26 03:26 03:26 WBC 15.5 H (3.8-10.6) k/uL Neutrophils # 12.9 H (1.3-7.7) k/uL D-Dimer 2.28 H (<0.60) mg/L FEU Potassium 3.4 L (3.5-5.1) mmol/L Carbon Dioxide 32 H (22-30) mmol/L BUN 42 H (7-17) mg/dL Creatinine 1.33 H (0.52-1.04) mg/dL Glucose 101 H (74-99) mg/dL POC Glucose (mg/dL) (75-99) mg/dL Calcium 8.3 L (8.4-10.2) mg/dL Ferritin (10.0-291.0) ng/mL AST 67 H (14-36) U/L ALT 78 H (4-34) U/L Alkaline Phosphatase 130 H (38-126) U/L Lactate Dehydrogenase 2441 H (313-618) U/L LD Isoenzymes (120-250) U/L C-Reactive Protein 19.8 H (<10.0) mg/L Total Protein 5.9 L (6.3-8.2) g/dL Albumin 3.0 L (3.5-5.0) g/dL 04/19/20 Range/Units 06:55 WBC (3.8-10.6) k/uL Neutrophils # (1.3-7.7) k/uL D-Dimer (<0.60) mg/L FEU Potassium (3.5-5.1) mmol/L Carbon Dioxide (22-30) mmol/L BUN (7-17) mg/dL Creatinine (0.52-1.04) mg/dL Glucose (74-99) mg/dL POC Glucose (mg/dL) 124 H (75-99) mg/dL Calcium (8.4-10.2) mg/dL Ferritin (10.0-291.0) ng/mL AST (14-36) U/L ALT (4-34) U/L Alkaline Phosphatase (38-126) U/L Lactate Dehydrogenase (313-618) U/L LD Isoenzymes (120-250) U/L C-Reactive Protein (<10.0) mg/L Total Protein (6.3-8.2) g/dL Albumin (3.5-5.0) g/dL Assessment and Plan Plan: 1 Acute hypoxic respiratory failure secondary to acute CoVID 19 pneumonia. completed Remdesivir. She received 1 unit of convalescent plasma , remains on IV Solu-Medrol and bronchodilators. she is currently on high flow oxygen at 60 L with an FiO2 of 45%. I'm going to switch this patient back to Decadron. She is not utilizing the BiPAP. Chest x-ray is stable, probably slightly improved. The patient is in a positive fluid overload.the patient has been diuresed over the past 24 hours and she is an obvious negative fluid balance 2 Altered mental status secondary to above, improved and the patient's mother status is normal 3 Chronic obstructive pulmonary disease 4 Chronic tobacco dependence 5 History of coronary disease 6 History of CVA 7 Diabetes mellitus 8 Hyperlipidemia 9 Hypertension 10 Degenerative joint disease 11 History of gastric ulcer 12 Previous history of brain aneurysm, treated with coil , along with a previous history of bilateral CVAs Plan: Continued with high flow oxygen, and try to wean the FiO2 in the flow completed Remdesivir, Lovenox 40 mg subcu twice a day for a d-dimer of 4.9, Decadron 6 mg IV push every 24 hours Received convalescent plasma Continue vitamin supplementation start the patient on Lasix 40 mg every 12 hours and Fluids to KVO keep a negative fluid balance transfer out of the ICU to a medical floor Time with Patient: Greater than 30
--- NOTE | 2020-04-19 08:03 | XR ---
EXAMINATION TYPE: XR chest 1V portable DATE OF EXAM: 04/19/2020 COMPARISON: Prior chest x-ray 04/18/2020 HISTORY: Shortness of breath TECHNIQUE: Single frontal view of the chest is obtained. FINDINGS: There is no focal air space opacity, pleural effusion, or pneumothorax seen. The cardiac silhouette size is within normal limits. The osseous structures are intact. Foreign body superimpos ed over the right upper chest, there is a thoracic cord stimulator is in as on prior exam. There is n o pneumothorax or pleural effusion. There are overlying cardiac leads. Patchy bilateral density prese nt within the lungs is again noted. Heart size is stable. Aorta is dense. IMPRESSION: There may be some slight interval improvement in aeration although there are differences in technique. Correlate for pneumonia, edema.
[2020-04-19] MEDS: FUROSEMIDE 10 MG/ML 4 ML VIAL IV SCH (08:30)
[2020-04-19] MEDS: CHOLECALCIFEROL 400 UNIT TAB PO SCH (08:30)
[2020-04-19] MEDS: CLOPIDOGREL 75 MG TAB PO SCH (08:31)
[2020-04-19] MEDS: SERTRALINE 100 MG TAB PO SCH (08:31)
[2020-04-19] MEDS: DEXAMETHASONE SOD PHOSPHATE 10 MG/ML 1 ML VIAL IV SCH (08:31)
[2020-04-19] MEDS: ISOSORBIDE MONONITRATE ER 30 MG TAB.ER.24H PO SCH ×2 (08:31→19:43)
[2020-04-19] MEDS: GABAPENTIN 400 MG CAP PO SCH ×3 (08:31→21:12)
[2020-04-19] MEDS: ZINC SULFATE 220 MG CAP PO SCH (08:32)
[2020-04-19] MEDS: PANTOPRAZOLE 40 MG TABLET PO SCH (08:32)
[2020-04-19] MEDS: ASCORBIC ACID 500 MG TAB PO SCH (08:32)
[2020-04-19] MEDS: NICOTINE 14MG/24HR PATCH TRANSDERM SCH (08:32)
[2020-04-19] MEDS: TRIAMCINOLONE 0.1% CREAM 80 GM TUBE TOPICAL SCH ×2 (08:33→20:33)
[2020-04-19] MEDS: ENOXAPARIN 40 MG/0.4 ML SYRINGE SQ SCH ×2 (08:36→20:33)
[2020-04-19] MEDS: SODIUM CHLORIDE 0.9% 1,000 ML IV SCH (08:36)
[2020-04-19] MEDS: SENNOSIDES 8.6 MG TAB PO SCH ×2 (08:36→20:33)
[2020-04-19] MEDS: ALBUTEROL HFA INHALER INHALATION SCH ×4 (08:37→19:04)
[2020-04-19] MEDS: SYMBICORT 80-4.5 MCG INHALER INHALATION SCH ×2 (08:38→19:05)
[2020-04-19] MEDS: HYDROcodone/APAP 5-325MG 1 EACH TAB PO PRN ×2 (08:50→21:11)
[2020-04-19 11:23] LABS: Ferritin 535.4 ng/mL (10.0-291.0)
--- NOTE | 2020-04-19 11:24 | P.PN ---
Subjective Acute Covid virus pneumonia Patient is a 64-year-old female was admitted to the hospital but bilateral Covid pneumonia and acute hypoxic respiratory failure. 04/15/2020 Patient is currently in the MICU. on airvo at high flow oxygen at 60 L/m and 90% FiO2. Chest x-ray showed mild cardiomegaly and diffuse bilateral groundglass densities. No improvement compared to previous. Laboratory showed WBC 12.2, hemoglobin 12.2, lymphocytes 0.8, sodium 139, potassium 4.5, creatinine 0.97 and blood sugar is 256. Patient is being continued on remdesivir day 4, IV Solu- Medrol Lovenox and vitamin supplementation breathing treatments. Pulmonary is following. 04/16/2020 Patient remains in intensive care unit. Currently awake alert oriented x3. Presently on airvo at 60 L and 90% FiO2. Patient is otherwise awake alert and oriented x3. Patient did receive convalescent plasma last night. Chest x-ray showed stable cardiomegaly and diffuse groundglass airspace of disease bilaterally no significant change compared to yesterday. Lab data reviewed. 04/17/2020 Patient to is being started on cleviprex elevated blood pressure. Patient remains on high-dose systemic steroids. Patient received convalescent plasma couple days ago. 04/18/2020 Patient is still remains on same amount of oxygen as his today. Patient is on Airvo. Patient's IV calcium channel ginny will discuss reviewed and patient will continued on amlodipine. Patient appears to have pulmonary edema is receiving IV Lasix at this time. And receiving Lovenox for DVT prophylaxis 04/19/2020 Patient remains on 6 L of oxygen no significant worsening or improvement remains on Lovenox 40 every 12 hourly. Patient is off Cleviprex. Creatinine is bit worse need to be closely monitored, Lasix will be discontinued. Constitutional: Denied any fatigue denied any fever. Cardio vascular: denied any chest pain, palpitations Gastrointestinal denied any nausea vomiting Pulmonary: Feels okay bit short of breath Neurologic denied any new focal deficits All inpatient medications were reviewed and appropriate changes in these medications as dictated in the interval history and assessment and plan. Objective - Vital Signs Vital signs: Vital Signs Temp 98.3 F 04/19/20 08:00 Pulse 62 04/19/20 09:00 Resp 22 04/19/20 09:00 BP 122/83 04/19/20 09:00 Pulse Ox 92 L 04/19/20 09:00 Intake & Output 04/18/20 04/19/20 04/19/20 18:59 06:59 18:59 Intake Total 384.867 220 280 Output Total 2695 1200 190 Balance -2310.133 -980 90 Weight 113.6 kg Intake: IV 370 220 40 Sodium Chloride 0.9% 1, 370 220 40 000 ml @ 20 mls/hr IV . Q24H ERASMO Rx#:[id number] Intake, IV Titration 14.867 Amount Clevidipine Butyrate 25 14.867 mg In Empty Bag 1 bag @ 1 MG/HR 2 mls/hr IV .Q24H ERASMO Rx#:[id number] Oral 240 Output: Urine 2695 1200 190 Other: Voiding Method Indwelling Catheter Indwelling Catheter Indwelling Catheter # Voids 2 - Exam PHYSICAL EXAMINATION: Patient is lying in the bed comfortably, no acute distress, awake alert and oriented.. HEENT: Normocephalic. Neck is supple. Pupils reactive. Nostrils clear. Oral cavity is moist. Ears reveal no drainage. Neck reveals no JVD, carotid bruits, or thyromegaly. CHEST EXAMINATION: Trachea is central. Symmetrical expansion. Bilateral coarse breath sounds. Nonlabored breathing.. CARDIAC: Normal S1, S2 with no gallops. No murmurs ABDOMEN: Soft. Bowel sounds normal. No organomegaly. No abdominal bruits. Extremities: reveal no edema. No clubbing or cyanosis Neurologically awake, alert, oriented x3 with well-coordinated movements. No focal deficits noted Skin: No rash or skin lesions. Psychiatric: Coperative. Nonsuicidal Musculoskeletal: No joint swelling or deformity. Normal range of motion. Note: Because of COVID 19 isolation, some of the history and physical exam fi ndings are indirect and obtained from nursing staff, and other physician examinations to avoid unnecessary contact with the patient. - Labs CBC & Chem 7: 04/19/20 03:26 04/19/20 03:26 Labs: Abnormal Lab Results - Last 24 Hours (Table) 04/16/20 04/18/20 04/18/20 Range/Units 04:17 11:31 16:49 WBC (3.8-10.6) k/uL Neutrophils # (1.3-7.7) k/uL D-Dimer (<0.60) mg/L FEU Potassium (3.5-5.1) mmol/L Carbon Dioxide (22-30) mmol/L BUN (7-17) mg/dL Creatinine (0.52-1.04) mg/dL Glucose (74-99) mg/dL POC Glucose (mg/dL) 194 H 198 H (75-99) mg/dL Calcium (8.4-10.2) mg/dL AST (14-36) U/L ALT (4-34) U/L Alkaline Phosphatase (38-126) U/L Lactate Dehydrogenase (313-618) U/L LD Isoenzymes 855 H (120-250) U/L C-Reactive Protein (<10.0) mg/L Total Protein (6.3-8.2) g/dL Albumin (3.5-5.0) g/dL 04/18/20 04/18/20 04/19/20 Range/Units 20:16 20:28 03:26 WBC 15.5 H (3.8-10.6) k/uL Neutrophils # 12.9 H (1.3-7.7) k/uL D-Dimer (<0.60) mg/L FEU Potassium 3.2 L (3.5-5.1) mmol/L Carbon Dioxide (22-30) mmol/L BUN (7-17) mg/dL Creatinine (0.52-1.04) mg/dL Glucose (74-99) mg/dL POC Glucose (mg/dL) 186 H (75-99) mg/dL Calcium (8.4-10.2) mg/dL AST (14-36) U/L ALT (4-34) U/L Alkaline Phosphatase (38-126) U/L Lactate Dehydrogenase (313-618) U/L LD Isoenzymes (120-250) U/L C-Reactive Protein (<10.0) mg/L Total Protein (6.3-8.2) g/dL Albumin (3.5-5.0) g/dL 04/19/20 04/19/20 04/19/20 Range/Units 03:26 03:26 06:55 WBC (3.8-10.6) k/uL Neutrophils # (1.3-7.7) k/uL D-Dimer 2.28 H (<0.60) mg/L FEU Potassium 3.4 L (3.5-5.1) mmol/L Carbon Dioxide 32 H (22-30) mmol/L BUN 42 H (7-17) mg/dL Creatinine 1.33 H (0.52-1.04) mg/dL Glucose 101 H (74-99) mg/dL POC Glucose (mg/dL) 124 H (75-99) mg/dL Calcium 8.3 L (8.4-10.2) mg/dL AST 67 H (14-36) U/L ALT 78 H (4-34) U/L Alkaline Phosphatase 130 H (38-126) U/L Lactate Dehydrogenase 2441 H (313-618) U/L LD Isoenzymes (120-250) U/L C-Reactive Protein 19.8 H (<10.0) mg/L Total Protein 5.9 L (6.3-8.2) g/dL Albumin 3.0 L (3.5-5.0) g/dL Assessment and Plan Plan: Acute bilateral extensive pneumonia secondary to COVID-19 interstitial pneumonia with acute hypoxic respiratory failure present on admission completed remdesivir.Status post convalescent plasma infusion. Patient is presently on the oxygen with Airvo -Acute respiratory failure secondary to assessment #1 COPD without any acute exacerbation Altered mental status secondary to acute metabolic encephalopathy secondary to COVID-19 pneumonia -Acute renal failure prerenal azotemia: Patient's IV fluids will be increased Coronary artery disease History of CVA/TIA Diabetes type 2 GERD Hyperlipidemia History of [employer] aneurysm and coiling nicotine addiction Morbid obesity BMI 45.9 DVT prophylaxis
[2020-04-19 11:48] LABS: Glucose,Whole Blood 171 mg/dL (75-99)
[2020-04-19] MEDS: FOLIC ACID 1 MG TAB PO SCH (11:55)
[2020-04-19 17:04] LABS: Glucose,Whole Blood 210 mg/dL (75-99)
[2020-04-19 20:12] LABS: Glucose,Whole Blood 205 mg/dL (75-99)
[2020-04-19] MEDS: amLODIPine 10 MG TAB PO SCH (20:33)
[2020-04-19] MEDS: ATORVASTATIN 40 MG TAB PO SCH (20:33)
--- NOTE | 2020-04-20 00:13 | PN ---
PROGRESS NOTE DATE OF SERVICE: 04/19/2020 REASON FOR FOLLOWUP: Covid 19 infection. INTERVAL HISTORY: The patient is currently afebrile. The patient has been feeling better. Breathing comfortably. She in the ICU. Denies any chest pain. Minimal cough. No abdominal pain or diarrhea. PHYSICAL EXAMINATION: Blood pressure 127/72 with a pulse of 69, temperature 98.1. She is 93% on high-flow oxygen. General description is a middle-aged female up in the bed in no distress. Respiratory system: Unlabored breathing, decreased breath sounds in the base, with no wheeze. Heart S1, S2. Regular rate and rhythm. ABDOMEN: Soft, no tenderness. LAB: Hemoglobin 13.1, white count 15.5. BUN of 42, creatinine 1.33. DIAGNOSTIC IMPRESSION AND PLAN: Patient with acute COVID-19 infection in this patient who seemed to have shown overall clinical improvement. Chest x-ray also shows some improvement. The patient has completed her Remdesivir therapy currently on Dexamethasone, Lovenox and zinc sulfate. Continue and monitor clinical course closely. MMODL / IJN: [id number] /
[2020-04-20 06:51] LABS: Basophils # (A) 0.1 k/uL (0-0.2); Basophils % (A) 0 %; Eosinophils # (A) 0.2 k/uL (0-0.7); Eosinophils % (A) 1 %; HCT 37.8 % (34.0-46.0); HGB 12.4 gm/dL (11.4-16.0); Lymphocytes # (A) 1.6 k/uL (1.0-4.8); Lymphocytes % (A) 10 %; MCH 26.5 pg (25.0-35.0); MCHC 32.9 g/dL (31.0-37.0); MCV 80.7 fL (80.0-100.0); Mean Platelet Volume 8.7; Monocytes # (A) 0.7 k/uL (0-1.0); Monocytes % (A) 4 %; Neutrophils # (A) 14.2 k/uL (1.3-7.7); Neutrophils % (A) 84 %; Platelet Count 163 k/uL (150-450); RBC 4.68 m/uL (3.80-5.40)
[2020-04-20 07:07] LABS: D-Dimer 1.24 mg/L FEU (<0.60); Partial Thromboplastin Time 26.3 sec (22.0-30.0); Prothrombin Time 10.7 sec (9.0-12.0)
[2020-04-20 07:18] LABS: Glucose,Whole Blood 89 mg/dL (75-99)
[2020-04-20] MEDS: INSULIN ASPART (NovoLOG) 100 UNIT/ML VIAL SQ SCH ×4 (07:36→21:09)
[2020-04-20] MEDS: SYMBICORT 80-4.5 MCG INHALER INHALATION SCH ×2 (07:45→20:27)
[2020-04-20] MEDS: ALBUTEROL HFA INHALER INHALATION SCH ×4 (07:45→20:27)
[2020-04-20] MEDS: INSULIN DETEMIR (LEVEMIR) 100 UNIT/ML SYR SQ SCH (08:17)
[2020-04-20] MEDS: DEXAMETHASONE SOD PHOSPHATE 10 MG/ML 1 ML VIAL IV SCH (08:17)
[2020-04-20] MEDS: ENOXAPARIN 40 MG/0.4 ML SYRINGE SQ SCH (08:17)
[2020-04-20] MEDS: ASCORBIC ACID 500 MG TAB PO SCH (08:18)
[2020-04-20] MEDS: CHOLECALCIFEROL 400 UNIT TAB PO SCH (08:18)
[2020-04-20] MEDS: SERTRALINE 100 MG TAB PO SCH (08:18)
[2020-04-20] MEDS: ISOSORBIDE MONONITRATE ER 30 MG TAB.ER.24H PO SCH (08:18)
[2020-04-20] MEDS: GLIMEPIRIDE 1 MG TAB PO SCH (08:18)
[2020-04-20] MEDS: PANTOPRAZOLE 40 MG TABLET PO SCH (08:18)
[2020-04-20] MEDS: CLOPIDOGREL 75 MG TAB PO SCH (08:18)
[2020-04-20] MEDS: SENNOSIDES 8.6 MG TAB PO SCH ×2 (08:18→21:09)
[2020-04-20] MEDS: NICOTINE 14MG/24HR PATCH TRANSDERM SCH (08:18)
[2020-04-20] MEDS: ZINC SULFATE 220 MG CAP PO SCH (08:18)
[2020-04-20] MEDS: GABAPENTIN 400 MG CAP PO SCH ×3 (08:18→21:09)
[2020-04-20 10:27] LABS: African American GFR (CKD) 55.7 (60.0-200.0); Albumin 3.2 g/dL (3.80-4.90); Albumin/Globulin Ratio 1.68 (1.60-3.17); Anion Gap 10.1 mmol/L (4.00-12.00); BUN/Creat Ratio 35.83 Ratio (12.00-20.00); C Reactive Protein 5.2 mg/dL (0.0-0.8); Calcium 8.2 mg/dL (8.7-10.3); Carbon Dioxide 26.9 mmol/L (21.6-31.8); Globulin 1.9 g/dL (1.6-3.3); Magnesium 2.2 mg/dL (1.5-2.4); Non-African American GFR(CKD) 48.1 (60.0-200.0); Potassium 3.4 mmol/L (3.5-5.5); Total Bilirubin 0.4 mg/dL (0.2-1.2); Total Protein 5.1 g/dL (6.2-8.2)
[2020-04-20 10:37] LABS: Ferritin 411.8 ng/mL (10.0-291.0)
[2020-04-20 11:39] LABS: Glucose,Whole Blood 259 mg/dL (75-99)
--- NOTE | 2020-04-20 12:29 | P.PN ---
Subjective Progress Note Date: 04/20/20 70-year-old female patient with COVID 19 related to pneumonia with secondary hypoxic respiratory failure who was admitted on 04/10/2020. The patient progressive worsening in hypoxemic respiratory failure and the patient is currently on high flow oxygen 60 L/m visit cannula with an FiO2 of 80% and 100%nonrebreather facemask. The patient is also utilizing BiPAP on and off at a pressure of 12/5 cm of water on Effexor 75%. The patient has completed a total of 5 day course of Remdesivir and the patient has received a unit of convalescent plasma. The patient currently is on IV Solu-Medrol. The patient is on Lovenox, vitamin supplements including C and D a chest x-ray showing diffuse groundglass bilateral pulmonary infiltrates. CRP from yesterday was 28 and ferritin from yesterday was 1095. The patient also had a component of encephalopathy related to Covid 19 infection overlapping with toxic metabolic encephalopathy related to an acute kidney injury improved. The patient's comorbid conditions include coronary artery disease, COPD, previous history of CVA and history of multiple strokes in the frontal and left cerebellar and right occipital help of a ruptured brain aneurysm in 2009 and diabetes mellitus and hypertension hyperlipidemia. The patient at the previous myocardial infarction. The patient's condition is also complicated by history of [employer] aneurysm, kidney stones and history of pyelonephritis. on today's evaluation, the patient is much more awake and alert and there is no altered mentation. She was taken off the BiPAP still. Resting comfortably in bed on high flow oxygen and 100% nonrebreather facemask. On today's evaluation of 04/18/2020, the patient is on a high flow oxygen at 6 L with an FiO2 of 70%. Her current pulse ox is around 94%. Chest x-ray showing cardiomegaly. There is some mild pulmonary vascular congestion. Probably slightly improved compared to yesterday. The patient is breathing comfortably. She was taken off the BiPAP. She is liking the high flow oxygen. She is on IV Solu-Medrol. I'm going to switch this back to Decadron 6 mg IV every 24 hours per protocol. Overnight, the blood pressure was elevated and the patient was started on a clevidipine drip which is currently running at 2 mg an hour. Her BP is under good control. Norvasc was restarted. She is also found to be in a positive fluid balance. She'll be started on Lasix today 40 mg IV push every 12 hours. She is on Lovenox DVT prophylaxis. She had a higher dose as the patient's d-dimer quite elevated and currently she is on Lovenox 40 mg subcu every 12 hours. She is handling some oral intake. White cell count of 12.6. No other significant events overnight. On today's evaluation of 04/19/2020, the patient is in good spirits. She is on 60 L of oxygen high flow. Her chest x-ray shows no major interval change, there may be some improvement in aeration. Nevertheless, the patient is quite active. She is communicating. She is able to sit up for that. She is tolerating diet. She has a congested cough. Unable to bring up much sputum. She still buzz aturates whenever she is off the high flow oxygen.she is on Lovenox for DVT prophylaxis. She is receiving IV Lasix 40 mg every 12 hours and her fluid balance is been negative. He remains on Lovenox 40 mg subcu every 12 hours.her blood pressures under adequate control and the patient is currently off the clevidipine drip. The patient's LDH is still elevated although slower is down to 2441. The patient has a CRP of 19 point images lower compared to yesterday. on 04/20/2020, the patient has been chest with out of the intensive care unit.she was on 60 L and currently she is on 40 L with an FiO2 of 40%. She feels better. She is telling me that she is breathing better. She is tolerating her diet. No nausea or vomiting. No diarrhea or abdominal pain. I had on IV Lasix 40 mg every 12 hours and her electrolytes from today is showing a BUN of 43 with a creatinine of 1.2. The fluid balance over the past 24 hours has been -3.2 L and the patient is feeling less swollen on today's evaluation. He has no specific complaints. No fever or chills. Objective - Vital Signs Vital signs: Vital Signs Temp 97.9 F 04/20/20 11:10 Pulse 59 L 04/20/20 11:10 Resp 16 04/20/20 11:10 BP 92/61 04/20/20 11:10 Pulse Ox 90 L 04/20/20 11:10 Intake & Output 04/19/20 04/20/20 04/20/20 18:59 06:59 18:59 Intake Total 600 590 Output Total 990 600 Balance -390 -10 Intake: IV 120 Sodium Chloride 0.9% 1, 120 000 ml @ 20 mls/hr IV . Q24H [facility] Rx#:[id number] Oral 480 590 Output: Urine 990 600 Uretheral (Raygoza) 600 Other: Voiding Method Indwelling Catheter Indwelling Catheter Indwelling Catheter # Voids 2 - Exam GENERAL EXAM: Alert, pleasant 64-year-old female patient, on high flowAirVo oxygen at 40 L and 40% FiO2 HEAD: Normocephalic. EYES: Normal reaction of pupils, equal size. NOSE: Clear with pink turbinates. THROAT: No erythema or exudates. NECK: No masses, no JVD. CHEST: No chest wall deformity. LUNGS: Equal air entry with diffuse bilateral coarse rhonchi CVS: S1 and S2 normal with no audible murmur, regular rhythm. ABDOMEN: No hepatosplenomegaly, normal bowel sounds, no guarding or rigidity. SPINE: No scoliosis or deformity SKIN: No rashes CENTRAL NERVOUS SYSTEM: No focal deficits, tone is normal in all 4 extremities. EXTREMITIES: There is no peripheral edema. No clubbing, no cyanosis. Peripheral pulses are intact. - Labs CBC & Chem 7: 04/20/20 05:50 04/20/20 05:50 Labs: Abnormal Lab Results - Last 24 Hours (Table) 04/19/20 04/19/20 04/20/20 Range/Units 17:01 20:10 05:50 WBC 17.0 H (3.8-10.6) k/uL Neutrophils # 14.2 H (1.3-7.7) k/uL D-Dimer (<0.60) mg/L FEU Potassium (3.5-5.5) mmol/L BUN (9.0-27.0) mg/dL Est GFR (CKD-EPI)AfAm (60.0-200.0) Est GFR (CKD-EPI)NonAf (60.0-200.0) BUN/Creatinine Ratio (12.00-20.00) Ratio POC Glucose (mg/dL) 210 H 205 H (75-99) mg/dL Calcium (8.7-10.3) mg/dL Ferritin (10.0-291.0) ng/mL AST (13-35) U/L ALT (8-44) U/L Lactate Dehydrogenase (120-246) U/L C-Reactive Protein (0.0-0.8) mg/dL Total Protein (6.2-8.2) g/dL Albumin (3.80-4.90) g/dL 04/20/20 04/20/20 04/20/20 Range/Units 05:50 05:50 11:11 WBC (3.8-10.6) k/uL Neutrophils # (1.3-7.7) k/uL D-Dimer 1.24 H (<0.60) mg/L FEU Potassium 3.4 L (3.5-5.5) mmol/L BUN 43.0 H (9.0-27.0) mg/dL Est GFR (CKD-EPI)AfAm 55.7 L (60.0-200.0) Est GFR (CKD-EPI)NonAf 48.1 L (60.0-200.0) BUN/Creatinine Ratio 35.83 H (12.00-20.00) Ratio POC Glucose (mg/dL) 259 H (75-99) mg/dL Calcium 8.2 L (8.7-10.3) mg/dL Ferritin 411.8 H (10.0-291.0) ng/mL AST 36 H (13-35) U/L ALT 66 H (8-44) U/L Lactate Dehydrogenase 808 H (120-246) U/L C-Reactive Protein 5.2 H (0.0-0.8) mg/dL Total Protein 5.1 L (6.2-8.2) g/dL Albumin 3.20 L (3.80-4.90) g/dL Assessment and Plan Plan: 1 Acute hypoxic respiratory failure secondary to acute CoVID 19 pneumonia. completed Remdesivir. She received 1 unit of convalescent plasma , remains on IV Solu-Medrol and bronchodilators. she is currently on high flow oxygen at 40 L with an FiO2 of 40%. 2 Altered mental status secondary to above, improved and the patient's mother status is normal 3 Chronic obstructive pulmonary disease 4 Chronic tobacco dependence 5 History of coronary disease 6 History of CVA 7 Diabetes mellitus 8 Hyperlipidemia 9 Hypertension 10 Degenerative joint disease 11 History of gastric ulcer 12 Previous history of brain aneurysm, treated with coil , along with a previous history of bilateral CVAs Plan: clinically improving Wean down the patient's FiO2. Currently is on 40 L. Attempt to wean this patient to a15 L nasal cannula. completed Remdesivir, Lovenox 40 mg subcu twice a day for a d-dimer of 4.9, and a d-dimer is improving and is down to 1.2 for work to reduce the Lovenox 40 mg subcu once a day., Decadron 6 mg po every 24 hours Received convalescent plasma Continue vitamin supplementation Lasix has been discontinued. keep a negative fluid balance condition is stable is improved and improved. Inflammatory markers are also improving. the patient's LDH and C-reactive protein are both improving. Time with Patient: Greater than 30
[2020-04-20] MEDS: TRIAMCINOLONE 0.1% CREAM 80 GM TUBE TOPICAL SCH ×2 (12:44→21:10)
[2020-04-20] MEDS: SODIUM CHLORIDE 0.9% 1,000 ML IV SCH (13:00)
[2020-04-20] MEDS: FOLIC ACID 1 MG TAB PO SCH (13:12)
--- NOTE | 2020-04-20 13:46 | P.PN ---
Subjective Progress Note Date: 04/20/20 HISTORY OF PRESENT ILLNESS Patient is 64-year female who was brought to [facility] on 04/10/2020 for evaluation of mental status changes patient also complaining of shortness of breath and minimal cough sputum production no chest pain no abdominal pain no diarrhea some nausea but no vomiting on presentation. Patient has been treated for acute COVID-19 pneumonia and completed course of Remdesivir. She is currently on dexamethasone, Lovenox and supplements. Patient states that she is feeling great. She denies any chest pain, shortness of breath. She states she has a little cough with phlegm production. Patient has been afebrile. Patient is maintained on high flow nasal cannula pulse oxing 90%. PHYSICAL EXAMINATION Gen: This is a 65-year-old female. She is resting in a chair and appears comfortable. No acute respiratory distress, no accessory muscle usage.] HEENT: Head is atraumatic, normocephalic. Pupils equal, round. Sclerae is anicteric. NECK: Supple. No JVD. LUNGS: Clear to auscultation. No wheezes or rhonchi. No intercostal retractions. HEART: Regular rate and rhythm. No murmur. ABDOMEN: Soft. Bowel sounds are present. No masses. No tenderness. EXTREMITIES: No pedal edema. No calf tenderness. NEUROLOGICAL: Patient is awake, alert and oriented x3. ASSESSMENT Acute Covid 19 pneumonia Acute hypoxic respiratory failure PLAN Completed course of Remdesivir Continue dexamethasone, Lovenox and supplements. Plan to wean oxygen The above dictated assessment and findings were discussed with Dr. Blake. The impression and plan of care have been directed as dictated. Sharon Powell nurse practitioner acting as scribe for Dr. Blake. Objective - Vital Signs Vital signs: Vital Signs Temp 97.9 F 04/20/20 11:10 Pulse 59 L 04/20/20 11:10 Resp 16 04/20/20 11:10 BP 92/61 04/20/20 11:10 Pulse Ox 90 L 04/20/20 11:10 Intake & Output 04/19/20 04/20/20 04/20/20 18:59 06:59 18:59 Intake Total 600 590 Output Total 990 600 Balance -390 -10 Intake: IV 120 Sodium Chloride 0.9% 1, 120 000 ml @ 20 mls/hr IV . Q24H [facility] Rx#:[id number] Oral 480 590 Output: Urine 990 600 Uretheral (Raygoza) 600 Other: Voiding Method Indwelling Catheter Indwelling Catheter Indwelling Catheter # Voids 2 - Labs CBC & Chem 7: 04/20/20 05:50 04/20/20 05:50 Labs: Abnormal Lab Results - Last 24 Hours (Table) 04/19/20 04/19/20 04/20/20 Range/Units 17:01 20:10 05:50 WBC 17.0 H (3.8-10.6) k/uL Neutrophils # 14.2 H (1.3-7.7) k/uL D-Dimer (<0.60) mg/L FEU Potassium (3.5-5.5) mmol/L BUN (9.0-27.0) mg/dL Est GFR (CKD-EPI)AfAm (60.0-200.0) Est GFR (CKD-EPI)NonAf (60.0-200.0) BUN/Creatinine Ratio (12.00-20.00) Ratio POC Glucose (mg/dL) 210 H 205 H (75-99) mg/dL Calcium (8.7-10.3) mg/dL Ferritin (10.0-291.0) ng/mL AST (13-35) U/L ALT (8-44) U/L Lactate Dehydrogenase (120-246) U/L C-Reactive Protein (0.0-0.8) mg/dL Total Protein (6.2-8.2) g/dL Albumin (3.80-4.90) g/dL 04/20/20 04/20/20 04/20/20 Range/Units 05:50 05:50 11:11 WBC (3.8-10.6) k/uL Neutrophils # (1.3-7.7) k/uL D-Dimer 1.24 H (<0.60) mg/L FEU Potassium 3.4 L (3.5-5.5) mmol/L BUN 43.0 H (9.0-27.0) mg/dL Est GFR (CKD-EPI)AfAm 55.7 L (60.0-200.0) Est GFR (CKD-EPI)NonAf 48.1 L (60.0-200.0) BUN/Creatinine Ratio 35.83 H (12.00-20.00) Ratio POC Glucose (mg/dL) 259 H (75-99) mg/dL Calcium 8.2 L (8.7-10.3) mg/dL Ferritin 411.8 H (10.0-291.0) ng/mL AST 36 H (13-35) U/L ALT 66 H (8-44) U/L Lactate Dehydrogenase 808 H (120-246) U/L C-Reactive Protein 5.2 H (0.0-0.8) mg/dL Total Protein 5.1 L (6.2-8.2) g/dL Albumin 3.20 L (3.80-4.90) g/dL
--- NOTE | 2020-04-20 15:06 | P.PN ---
Subjective Progress Note Date: 04/20/20 Acute Covid virus pneumonia Patient is a 64-year-old female was admitted to the hospital but bilateral Covid pneumonia and acute hypoxic respiratory failure. 04/15/2020 Patient is currently in the MICU. on airvo at high flow oxygen at 60 L/m and 90% FiO2. Chest x-ray showed mild cardiomegaly and diffuse bilateral groundglass densities. No improvement compared to previous. Laboratory showed WBC 12.2, hemoglobin 12.2, lymphocytes 0.8, sodium 139, potassium 4.5, creatinine 0.97 and blood sugar is 256. Patient is being continued on remdesivir day 4, IV Solu- Medrol Lovenox and vitamin supplementation breathing treatments. Pulmonary is following. 04/16/2020 Patient remains in intensive care unit. Currently awake alert oriented x3. Presently on airvo at 60 L and 90% FiO2. Patient is otherwise awake alert and oriented x3. Patient did receive convalescent plasma last night. Chest x-ray showed stable cardiomegaly and diffuse groundglass airspace of disease bilaterally no significant change compared to yesterday. Lab data reviewed. 04/17/2020 Patient to is being started on cleviprex elevated blood pressure. Patient remains on high-dose systemic steroids. Patient received convalescent plasma couple days ago. 04/18/2020 Patient is still remains on same amount of oxygen as his today. Patient is on Airvo. Patient's IV calcium channel ginny will discuss reviewed and patient will continued on amlodipine. Patient appears to have pulmonary edema is receiving IV Lasix at this time. And receiving Lovenox for DVT prophylaxis 04/19/2020 Patient remains on 6 L of oxygen no significant worsening or improvement remains on Lovenox 40 every 12 hourly. Patient is off Cleviprex. Creatinine is bit worse need to be closely monitored, Lasix will be discontinued. 04/20/2020 Patient was on Airvo and has been transitioned to high flow nasal cannula at 10 L and oxygen saturation is 97%. Pulmonary and infectious disease are following. Patient remains off Lasix and creatinine is currently 1.2. Patient remains on dexamethasone along with vitamin C and D, zinc, and Lovenox and will decrease the dose of Lovenox. She is currently sitting up in the chair and lethargic although arousable and does respond appropriately to commands. Patient states she was able to tolerate breakfast this morning with no reports of nausea or vomiting noted. Maintaining blood pressures and will continue to monitor closely as she was recently transferred out of the ICU. Constitutional: Denied any fatigue denied any fever. Cardio vascular: denied any chest pain, palpitations Gastrointestinal denied any nausea vomiting Pulmonary: Continues with shortness of breath although feels it has slightly improved Neurologic denied any new focal deficits All inpatient medications were reviewed and appropriate changes in these medications as dictated in the interval history and assessment and plan. Objective - Vital Signs Vital signs: Vital Signs Temp 97.9 F 04/20/20 11:10 Pulse 59 L 04/20/20 11:10 Resp 16 04/20/20 11:10 BP 92/61 04/20/20 11:10 Pulse Ox 90 L 04/20/20 11:10 Intake & Output 04/19/20 04/20/20 04/20/20 18:59 06:59 18:59 Intake Total 600 590 Output Total 990 600 Balance -390 -10 Intake: IV 120 Sodium Chloride 0.9% 1, 120 000 ml @ 20 mls/hr IV . Q24H [facility] Rx#:[id number] Oral 480 590 Output: Urine 990 600 Uretheral (Raygoza) 600 Other: Voiding Method Indwelling Catheter Indwelling Catheter Indwelling Catheter # Voids 2 - Exam Patient is sitting up in the chair comfortably, no acute distress, asleep although arousable, alert and oriented.. HEENT: Normocephalic. Neck is supple. Pupils reactive. Nostrils clear. Oral cavity is moist. Ears reveal no drainage. Neck reveals no JVD, carotid bruits, or thyromegaly. CHEST EXAMINATION: Trachea is central. Symmetrical expansion. Bilateral coarse breath sounds. Nonlabored breathing.. Currently on airvo and being transitioned to high flow nasal cannula, mouth breathing noted on exam CARDIAC: Normal S1, S2 with no gallops. No murmurs ABDOMEN: Soft. Bowel sounds normal. No organomegaly. No abdominal bruits. Extremities: reveal no edema. No clubbing or cyanosis Neurologic: Asleep although arousable, alert, oriented x3 with well-coordinated movements. No focal deficits noted Skin: No rash or skin lesions. Psychiatric: Cooperative. Non-suicidal Musculoskeletal: No joint swelling or deformity. Normal range of motion. Note: Because of COVID 19 isolation, some of the history and physical exam findings are indirect and obtained from nursing staff, and other physician examinations to avoid unnecessary contact with the patient. - Labs CBC & Chem 7: 04/20/20 05:50 04/20/20 05:50 Labs: Abnormal Lab Results - Last 24 Hours (Table) 04/19/20 04/19/20 04/20/20 Range/Units 17:01 20:10 05:50 WBC 17.0 H (3.8-10.6) k/uL Neutrophils # 14.2 H (1.3-7.7) k/uL D-Dimer (<0.60) mg/L FEU Potassium (3.5-5.5) mmol/L BUN (9.0-27.0) mg/dL Est GFR (CKD-EPI)AfAm (60.0-200.0) Est GFR (CKD-EPI)NonAf (60.0-200.0) BUN/Creatinine Ratio (12.00-20.00) Ratio POC Glucose (mg/dL) 210 H 205 H (75-99) mg/dL Calcium (8.7-10.3) mg/dL Ferritin (10.0-291.0) ng/mL AST (13-35) U/L ALT (8-44) U/L Lactate Dehydrogenase (120-246) U/L C-Reactive Protein (0.0-0.8) mg/dL Total Protein (6.2-8.2) g/dL Albumin (3.80-4.90) g/dL 04/20/20 04/20/20 04/20/20 Range/Units 05:50 05:50 11:11 WBC (3.8-10.6) k/uL Neutrophils # (1.3-7.7) k/uL D-Dimer 1.24 H (<0.60) mg/L FEU Potassium 3.4 L (3.5-5.5) mmol/L BUN 43.0 H (9.0-27.0) mg/dL Est GFR (CKD-EPI)AfAm 55.7 L (60.0-200.0) Est GFR (CKD-EPI)NonAf 48.1 L (60.0-200.0) BUN/Creatinine Ratio 35.83 H (12.00-20.00) Ratio POC Glucose (mg/dL) 259 H (75-99) mg/dL Calcium 8.2 L (8.7-10.3) mg/dL Ferritin 411.8 H (10.0-291.0) ng/mL AST 36 H (13-35) U/L ALT 66 H (8-44) U/L Lactate Dehydrogenase 808 H (120-246) U/L C-Reactive Protein 5.2 H (0.0-0.8) mg/dL Total Protein 5.1 L (6.2-8.2) g/dL Albumin 3.20 L (3.80-4.90) g/dL Assessment and Plan Assessment: Acute bilateral extensive pneumonia secondary to COVID-19 interstitial pneumonia with acute hypoxic respiratory failure present on admission completed remdesivir.Status post convalescent plasma infusion. Patient is presently on the oxygen with Airvo and being transitioned to high flow nasal cannula at 10 L. Pulmonary following closely. -Acute respiratory failure secondary to assessment #1 -COPD without any acute exacerbation -Altered mental status secondary to acute metabolic encephalopathy secondary to COVID-19 pneumonia -Acute renal failure prerenal azotemia: Improved -Coronary artery disease -History of CVA/TIA -Diabetes type 2 -GERD -Hyperlipidemia -History of [employer] aneurysm and coiling -nicotine addiction -Morbid obesity BMI 45.9 -DVT prophylaxis Plan: Continue with current medications. Patient is being transitioned to high flow nasal cannula at 10 L as she was on airvo. Currently 97% on the high flow at 10 L nasal cannula. Will continue to wean FiO2 as tolerated and discussed with nursing staff. Instructed the patient to continue increasing activity as tolerated and encouraged oral intake. Will continue to monitor vital signs and labs closely. Further recommendations to follow. PT/OT following along with case management and social work as patient will need ECF for continued strength and mobility upon discharge.
[2020-04-20 17:01] LABS: Glucose,Whole Blood 221 mg/dL (75-99)
[2020-04-20 20:47] LABS: Glucose,Whole Blood 198 mg/dL (75-99)
[2020-04-20] MEDS ORDERED: amLODIPine 5 MG TAB PO SCH (21:00)
[2020-04-20] MEDS: ATORVASTATIN 40 MG TAB PO SCH (21:09)
[2020-04-20] MEDS: HYDROcodone/APAP 5-325MG 1 EACH TAB PO PRN (21:13)
[2020-04-21 04:55] VITALS: TEMP 97.9
[2020-04-21 07:13] LABS: Glucose,Whole Blood 136 mg/dL (75-99)
[2020-04-21] MEDS: ALBUTEROL HFA INHALER INHALATION SCH ×3 (07:14→15:17)
[2020-04-21] MEDS: SYMBICORT 80-4.5 MCG INHALER INHALATION SCH (07:14)
[2020-04-21] MEDS: NICOTINE 14MG/24HR PATCH TRANSDERM SCH (08:22)
[2020-04-21] MEDS: DEXAMETHASONE SOD PHOSPHATE 10 MG/ML 1 ML VIAL IV SCH (08:22)
[2020-04-21] MEDS: INSULIN ASPART (NovoLOG) 100 UNIT/ML VIAL SQ SCH ×2 (08:23→14:08)
[2020-04-21] MEDS: INSULIN DETEMIR (LEVEMIR) 100 UNIT/ML SYR SQ SCH (08:23)
[2020-04-21] MEDS: SENNOSIDES 8.6 MG TAB PO SCH (08:24)
[2020-04-21] MEDS: CHOLECALCIFEROL 400 UNIT TAB PO SCH (08:24)
[2020-04-21] MEDS: ASCORBIC ACID 500 MG TAB PO SCH (08:24)
[2020-04-21] MEDS: GABAPENTIN 400 MG CAP PO SCH (08:24)
[2020-04-21] MEDS: FOLIC ACID 1 MG TAB PO SCH (08:24)
[2020-04-21] MEDS: SERTRALINE 100 MG TAB PO SCH (08:24)
[2020-04-21] MEDS: CLOPIDOGREL 75 MG TAB PO SCH (08:25)
[2020-04-21] MEDS: PANTOPRAZOLE 40 MG TABLET PO SCH (08:25)
[2020-04-21] MEDS: ISOSORBIDE MONONITRATE ER 30 MG TAB.ER.24H PO SCH (08:25)
[2020-04-21] MEDS: ZINC SULFATE 220 MG CAP PO SCH (08:25)
[2020-04-21] MEDS ORDERED: ENOXAPARIN 40 MG/0.4 ML SYRINGE SQ SCH (09:00)
[2020-04-21 11:11] VITALS: BP 126/68; PULSE 57; RESP 17
[2020-04-21 11:28] LABS: Glucose,Whole Blood 183 mg/dL (75-99)
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
[2020-04-21] MEDS: TRIAMCINOLONE 0.1% CREAM 80 GM TUBE TOPICAL SCH (14:09)
--- NOTE | 2020-04-21 14:42 | P.PN ---
Subjective Progress Note Date: 04/21/20 HISTORY OF PRESENT ILLNESS Patient is 64-year female who was brought to [facility] on 04/10/2020 for evaluation of mental status changes patient also complaining of shortness of breath and minimal cough sputum production no chest pain no abdominal pain no diarrhea some nausea but no vomiting on presentation. Patient has been treated for acute COVID-19 pneumonia and completed course of Remdesivir. She is currently on dexamethasone, Lovenox and supplements. Patient states that she is feeling great. She denies any chest pain, shortness of breath. She states she has a little cough with phlegm production. Patient has been afebrile. Patient is maintained on high flow nasal cannula pulse oxing 90%. 04/21: Patient is seen today in follow-up. Pulse ox is 94% on 4 L nasal c annula. She denies any chest pain, no significant shortness of breath, cough. She denies any abdominal symptoms. Recommend discontinuing Raygoza catheter. Lungs are clear to auscultation. Patient has been afebrile. PHYSICAL EXAMINATION Gen: This is a 65-year-old female. She is resting in a chair and appears comfortable. No acute respiratory distress, no accessory muscle usage.] HEENT: Head is atraumatic, normocephalic. Pupils equal, round. Sclerae is anicteric. NECK: Supple. No JVD. LUNGS: Clear to auscultation. No wheezes or rhonchi. No intercostal retractions. HEART: Regular rate and rhythm. No murmur. ABDOMEN: Soft. Bowel sounds are present. No masses. No tenderness. EXTREMITIES: No pedal edema. No calf tenderness. NEUROLOGICAL: Patient is awake, alert and oriented x3. ASSESSMENT Acute Covid 19 pneumonia Acute hypoxic respiratory failure PLAN Completed course of Remdesivir Plan to wean oxygen Recommend discontinuing Raygoza catheter Patient is cleared by infectious disease for discharge. The above dictated assessment and findings were discussed with Dr. Blake. The impression and plan of care have been directed as dictated. Sharon Powell nurse practitioner acting as scribe for Dr. Blake. Objective - Vital Signs Vital signs: Vital Signs Temp 97.9 F 04/21/20 11:10 Pulse 57 L 04/21/20 11:10 Resp 17 04/21/20 11:10 BP 126/68 04/21/20 11:10 Pulse Ox 94 L 04/21/20 11:10 Intake & Output 04/20/20 04/21/20 04/21/20 18:59 06:59 18:59 Output Total 900 300 Balance -900 -300 Output: Urine 900 300 Uretheral (Raygoza) 300 Other: Voiding Method Indwelling Catheter Indwelling Catheter Indwelling Catheter - Labs CBC & Chem 7: 04/20/20 05:50 04/20/20 05:50 Labs: Abnormal Lab Results - Last 24 Hours (Table) 04/20/20 04/20/20 04/21/20 Range/Units 16:58 20:46 07:12 POC Glucose (mg/dL) 221 H 198 H 136 H (75-99) mg/dL 04/21/20 Range/Units 11:26 POC Glucose (mg/dL) 183 H (75-99) mg/dL
--- NOTE | 2020-04-21 18:57 | P.PN ---
Subjective Progress Note Date: 04/21/20 Principal diagnosis: Acute CoVID 19 pneumonia The patient is seen today 04/15/2020 in follow-up in the intensive care unit. She was admitted back on 04/10/2020 with acute 19 pneumonia. Her oxygen requirements have continued to increase. She is currently on AirVo high flow oxygen at 60 L/m and 90% FiO2 along with a nonrebreather mask. Currently with an O2 saturation at 97%. Earlier this morning while turning she did drop into the 70s. Chest x-ray continues to show mild cardiomegaly and diffuse bilateral groundglass densities. No improvement compared to previous. White count 12.2. Hemoglobin 12.2. Lymphocytes 0.8. Sodium 139. Potassium 4.5. Creatinine 0.97. Glucose 256. This is day #4 of Remdesivir. She remains on IV Solu- Medrol, bronchodilators, Lovenox, vitamin supplements. NicoDerm patch in place. The patient is seen today 04/16/2020 in follow-up in the intensive care unit. She is currently awake and alert. She is still requiring high oxygen re quirements. Presently on airflow at 60 L and 90% FiO2. She's been alternating with BiPAP 12/5 and 75% FiO2. This is day #5 of her Remdesivir. She did receive convalescent plasma last night. She has 0.9 normal saline at 50 MLS per hour. Chest x-ray shows stable cardiomegaly with diffuse groundglass airspace disease bilaterally. No significant change compared to yesterday. White count 13.1. Hemoglobin 12.7. Lymphocytes 0.8. Sodium 140. Potassium 4.7. Creatinine 1.25. Ferritin 1095. C-reactive protein 28. The patient is seen today 04/21/2020 in follow-up on the regular medical floor. She has continued to improve daily. She is maintaining good O2 saturations in the 90s on 3 L/m per nasal cannula. She did desaturate with walking and will require home oxygen. Glucose 183. Objective - Vital Signs Vital signs: Vital Signs Temp 97.9 F 04/21/20 11:10 Pulse 57 L 04/21/20 11:10 Resp 17 04/21/20 11:10 BP 126/68 04/21/20 11:10 Pulse Ox 94 L 04/21/20 11:10 Intake & Output 04/20/20 04/21/20 04/21/20 18:59 06:59 18:59 Output Total 217 525 3254 Balance -900 -300 -1600 Output: Urine 773 132 9163 Uretheral (Raygoza) 300 1600 Other: Voiding Method Indwelling Catheter Indwelling Catheter Indwelling Catheter - Exam GENERAL EXAM: Alert, pleasant 64-year-old female patient, on 4 L/m per nasal cannula HEAD: Normocephalic. EYES: Normal reaction of pupils, equal size. NOSE: Clear with pink turbinates. THROAT: No erythema or exudates. NECK: No masses, no JVD. CHEST: No chest wall deformity. LUNGS: Equal air entry with bilateral coarse rhonchi CVS: S1 and S2 normal with no audible murmur, regular rhythm. ABDOMEN: No hepatosplenomegaly, normal bowel sounds, no guarding or rigidity. SPINE: No scoliosis or deformity SKIN: No rashes CENTRAL NERVOUS SYSTEM: No focal deficits, tone is normal in all 4 extremities. EXTREMITIES: There is no peripheral edema. No clubbing, no cyanosis. Peripheral pulses are intact. - Labs CBC & Chem 7: 04/20/20 05:50 04/20/20 05:50 Labs: Abnormal Lab Results - Last 24 Hours (Table) 04/20/20 04/21/20 04/21/20 Range/Units 20:46 07:12 11:26 POC Glucose (mg/dL) 198 H 136 H 183 H (75-99) mg/dL Assessment and Plan Assessment: 1 Acute hypoxic respiratory failure secondary to acute CoVID 19 pneumonia. Completed Remdesivir. She received convalescent plasma 2 Altered mental status secondary to above 3 Chronic obstructive pulmonary disease 4 Chronic tobacco dependence 5 History of coronary disease 6 History of CVA 7 Diabetes mellitus 8 Hyperlipidemia 9 Hypertension 10 Degenerative joint disease 11 History of gastric ulcer 12 Previous history of brain aneurysm, treated with coil Plan: The patient was seen and evaluated by Dr. Guajardo She has improved and nearly back to her baseline Currently on 4 L nasal cannula, will require home oxygen Follow closely with her PCP I, the cosigning physician, performed a history & physical examination of the patient. Lungs sounds with diffuse bilateral scattered rhonchi. Maintaining go od O2 saturations in the 90s on 4 L/m per nasal cannula. I discussed the assessment and plan of care with my nurse practitioner, Neli Mejia. I attest to the above note as dictated by her.
== END 2020-04-21 16:34 | DRG 871 ==
LOC: EC 17:31 → 4SSUR 20:22 → 2SICU 04-14 16:55 → 6NMEDSUR 04-19 14:37
PROVIDERS: ADMIT Hospitalist; ATTEND Hospitalist
PROC: XW033E5 Introduction of Remdesivir Anti-infective into Peripheral Vein, Percutaneous Approach, New Technology Group 5 (ICD-10-PCS; principal; 2020-04-11)
PROC: 5A09457 Assistance with Respiratory Ventilation, 24-96 Consecutive Hours, Continuous Positive Airway Pressure (ICD-10-PCS; 2020-04-15)
PROC: XW13325 Transfusion of Convalescent Plasma (Nonautologous) into Peripheral Vein, Percutaneous Approach, New Technology Group 5 (ICD-10-PCS; 2020-04-16)
DX: A41.89 Other specified sepsis (principal); U07.1 COVID-19; G92 Toxic encephalopathy; J12.89 Other viral pneumonia; J96.01 Acute respiratory failure with hypoxia; J44.0 Chronic obstructive pulmonary disease with (acute) lower respiratory infection; N17.9 Acute kidney failure, unspecified; N39.0 Urinary tract infection, site not specified; Z68.42 Body mass index [BMI] 45.0-49.9, adult; D69.6 Thrombocytopenia, unspecified; E11.22 Type 2 diabetes mellitus with diabetic chronic kidney disease; E11.40 Type 2 diabetes mellitus with diabetic neuropathy, unspecified; E66.01 Morbid (severe) obesity due to excess calories; E78.5 Hyperlipidemia, unspecified; F17.210 Nicotine dependence, cigarettes, uncomplicated; F32.9 Major depressive disorder, single episode, unspecified; F41.9 Anxiety disorder, unspecified; G89.29 Other chronic pain; G93.89 Other specified disorders of brain; I13.10 Hypertensive heart and chronic kidney disease without heart failure, with stage 1 through stage 4 chronic kidney disease, or unspecified chronic kidney disease; I25.2 Old myocardial infarction; I25.119 Atherosclerotic heart disease of native coronary artery with unspecified angina pectoris; Z86.73 Personal history of transient ischemic attack (TIA), and cerebral infarction without residual deficits; K21.9 Gastro-esophageal reflux disease without esophagitis; M19.90 Unspecified osteoarthritis, unspecified site; N18.30 Chronic kidney disease, stage 3 unspecified; N20.0 Calculus of kidney; R79.1 Abnormal coagulation profile; R94.5 Abnormal results of liver function studies; Z84.1 Family history of disorders of kidney and ureter; Z80.52 Family history of malignant neoplasm of bladder; Z87.01 Personal history of pneumonia (recurrent); Z87.440 Personal history of urinary (tract) infections; Z88.5 Allergy status to narcotic agent; Z88.0 Allergy status to penicillin; Z88.8 Allergy status to other drugs, medicaments and biological substances; M54.9 Dorsalgia, unspecified; Z79.02 Long term (current) use of antithrombotics/antiplatelets; Z79.4 Long term (current) use of insulin; Z79.82 Long term (current) use of aspirin; Z79.899 Other long term (current) drug therapy; Z87.11 Personal history of peptic ulcer disease; Z87.442 Personal history of urinary calculi; Z90.49 Acquired absence of other specified parts of digestive tract; Z79.01 Long term (current) use of anticoagulants; Z86.79 Personal history of other diseases of the circulatory system
CPT/HCPCS: 36415; 36600; 70450; 71045; 71046; 71250; 80048; 80053; 80306; 81001; 82140; 82550; 82607; 82728; 82747; 82805; 83036; 83615; 83625; 83735; 83880; 84132; 84145; 84443; 84484; 85025; 85379; 85384; 85610; 85730; 86140; 86850; 86900; 86901; 87635; 94640; 94660; 94760; 95816; 96361; 96374; 99291

== ENCOUNTER 2020-04-26 14:29 | Inpatient (IN) | payer MEDICARE, OTHER ==
[2020-04-26] MEDS ORDERED: NITROGLYCERIN OINT 1 INCH/GM PACKET TOPICAL STA (14:32)
[2020-04-26] MEDS ORDERED: ASPIRIN 81 MG PO STA (14:32)
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
[2020-04-26] MEDS ORDERED: HEPARIN SODIUM,PORCINE 5,000 UNIT/ML 1 ML VIAL IV STA (14:44)
[2020-04-26] MEDS ORDERED: HEPARIN SODIUM,PORCINE 5,000 UNIT/ML 1 ML VIAL IV ONE (14:48)
[2020-04-26 14:51] LABS: Albumin 2.8 g/dL (3.5-5.0); Magnesium 2.1 mg/dL (1.6-2.3); Potassium 4.2 mmol/L (3.5-5.1); Total Bilirubin 0.5 mg/dL (0.2-1.3); Total Protein 5.8 g/dL (6.3-8.2)
[2020-04-26] MEDS ORDERED: NITROGLYCERIN SL TABS 0.4 MG TAB SUBLINGUAL PRN ×2 (14:51→16:08)
--- NOTE | 2020-04-26 14:51 | XR ---
EXAMINATION TYPE: XR chest 1V portable DATE OF EXAM: 04/26/2020 COMPARISON: Chest x-ray one week ago and older studies. HISTORY: Chest pain. Covid 19 positive. Possible STEMI. TECHNIQUE: Single AP portable frontal upright view of the chest is obtained. FINDINGS: There is worsening opacities bilaterally for most recent x-ray. Stable somewhat low lung v olumes. The cardiac silhouette size remains enlarged with atherosclerotic thoracic aorta. Spinal sti mulator mid to lower thoracic spinal canal redemonstrated. IMPRESSION: Low lung volumes and cardiomegaly with worsening bilateral multifocal infiltrates and/or edema with suspected organizing consolidations suspicious for covid-19 infection progression.
[2020-04-26] MEDS ORDERED: SODIUM CHLORIDE 0.9% 1,000 ML IV ONE (15:00)
[2020-04-26 15:02] LABS: Partial Thromboplastin Time 21.2 sec (22.0-30.0); Prothrombin Time 10.7 sec (9.0-12.0)
[2020-04-26 15:03] LABS: Anisocytosis Slight; Basophils # (A) 0.1 k/uL (0-0.2); Basophils % (A) 0 %; Eosinophils # (A) 0.1 k/uL (0-0.7); Eosinophils % (A) 1 %; HCT 33.5 % (34.0-46.0); HGB 10.7 gm/dL (11.4-16.0); Lymphocytes # (A) 1.1 k/uL (1.0-4.8); Lymphocytes % (A) 6 %; MCH 26.5 pg (25.0-35.0); MCV 82.8 fL (80.0-100.0); Mean Platelet Volume 8.6; Monocytes # (A) 0.9 k/uL (0-1.0); Monocytes % (A) 5 %; Neutrophils # (A) 15.1 k/uL (1.3-7.7); Neutrophils % (A) 87 %; Platelet Count 208 k/uL (150-450); RBC 4.05 m/uL (3.80-5.40); RDW 16.4 % (11.5-15.5); WBC 17.4 k/uL (3.8-10.6)
[2020-04-26] MEDS ORDERED: LIDOCAINE 1% INJ 10MG/ML (20 ML MDV) SQ ONE (15:06)
[2020-04-26] MEDS ORDERED: MIDAZOLAM 2 MG/2 ML VIAL IVP ONE (15:09)
[2020-04-26] MEDS ORDERED: BIVALIRUDIN BOLUS 250 MG/50 ML IV ONE (15:14)
[2020-04-26] MEDS ORDERED: BIVALIRUDIN 250 MG in SODIUM CHLORIDE 0.9% 50 ML IV ONE ×2 (15:15→15:25)
[2020-04-26] MEDS: NITROGLYCERIN 1000MCG/10ML SYRINGE INTRACORON ONE ×2 (15:24→15:29)
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
[2020-04-26] MEDS ORDERED: niCARdipine 25 MG/10 ML VIAL ONE (15:29)
[2020-04-26] MEDS ORDERED: CLOPIDOGREL 75 MG TAB ONE (15:38)
[2020-04-26] MEDS ORDERED: IOPAMIDOL-370 125ML BTL INJ ONE (15:40)
[2020-04-26] MEDS ORDERED: CLOPIDOGREL 75 MG TAB PO ONE (15:42)
[2020-04-26] MEDS ORDERED: SODIUM CHLORIDE 0.9% 1,000 ML IV SCH (15:45)
[2020-04-26] MEDS ORDERED: polyethylene glycoL 3350 17 GM POWD.PACK PO PRN (16:08)
[2020-04-26] MEDS ORDERED: IPRATROPIUM-ALBUTEROL 3 ML NEB INHALATION PRN (16:08)
--- NOTE | 2020-04-26 17:22 | CC ---
CARDIAC CATHETERIZATION REPORT DATE OF SERVICE: 04/26/2020 PERFORMING PHYSICIAN: Roman Tobin M.D. PROCEDURES PERFORMED: 1. Selective right and left coronary angiogram. 2. Aspiration thrombectomy from the right coronary artery. 3. Successful stenting of the ostial right coronary artery using a 3.5 x 23 mm Xience drug-eluting stent with an excellent angiographic result and reduction of stenosis from 100% to 0%. 4. Left heart catheterization. INDICATION: This is a 65-year-old female patient with coronary artery disease and prior stenting of the LAD and diagonal as well as known history of peripheral arterial disease who was brought from a long-term to the hospital with chest discomfort and was diagnosed with acute inferior ST-elevation myocardial infarction. Subsequently an emergent heart catheterization was advised. APPROACH: Right common femoral artery. COMPLICATIONS: None. LEVEL OF SEDATION: Moderate, with sedation length of 40 minutes. Door to balloon was 48 minutes. PROCEDURE DESCRIPTION: After obtaining informed consent, the patient was brought to the slab depiler operator. The right common femoral artery was cannulated using micropuncture technique. The micropuncture wire passed easily. Then I placed a 6-Thai sheath in the right common femoral artery. Selective right and left coronary angiogram was performed using JR4 and JL4 catheters. Left heart catheterization was performed using a 6-Thai pigtail catheter. Subsequently I did intervene on the RCA; please see separate paragraph for that. SELECTIVE CORONARY ANGIOGRAM: 1. The RCA is a large-caliber vessel and is occluded 100% at the ostium. 2. The left main is angiographically normal. It bifurcates into left circumflex and left anterior descending artery. 3. The left circumflex is a large-caliber vessel. It is a nondominant vessel. The left circumflex appeared to be angiographically normal. In the proximal portion it gives rise to an OM branch which is a medium-caliber vessel with mild disease only. 4. The LAD. The proximal LAD appeared to be angiographically normal. The mid LAD has an intermediate lesion that appeared to be in the range of 40% only. The LAD proximally gives rise to a large diagonal branch which appeared to be stented with mild in-stent restenosis. The mid and distal LAD appeared to have mild disease only. 5. HEMODYNAMICS: The LVEDP was about 16 mmHg without significant gradient across the aortic valve. PERCUTANEOUS CORONARY INTERVENTION OF THE RIGHT CORONARY ARTERY: Anticoagulation was initiated using Angiomax. Subsequently I did engage the RCA using a JR3.5 guide. I crossed the acute total occlusion using a run-through wire. After that I did aspiration thrombectomy using the [place] catheter. Balloon angioplasty was performed using 3.0 x 12 mm balloon before I deployed 3.5 x 23 mm Xience drug-eluting stent where the stent was positioned under fluoroscopic guidance and deployed under its nominal pressure. The final angiogram showed good angiographic results and the procedure was completed without any complication. CONCLUSION: 1. Acute inferior ST-elevation myocardial infarction. 2. Acute total occlusion of the proximal right coronary artery. Successful stenting of the RCA was performed. 3. Patent stents in the LAD/diagonal system. 4. Normal left circumflex coronary artery. 5. Normal LVEDP. POST-PROCEDURE MANAGEMENT: 1. Dual anti-platelet therapy. 2. Risk factor modifications. 3. Follow up with the patient. MMKRISTIE / EDITHN: [id number] /
[2020-04-26] MEDS ORDERED: ACETAMINOPHEN TAB 325 MG TAB PO PRN (17:40)
[2020-04-26] MEDS ORDERED: ATROPINE SULFATE 0.1 MG/ML 10ML SYRINGE IV PRN (17:45)
[2020-04-26] MEDS ORDERED: MAG HYDROX/AL HYDROX/SIMETH 30 ML CUP PO PRN (17:45)
[2020-04-26] MEDS ORDERED: ZOLPIDEM 5 MG TAB PO PRN (17:45)
[2020-04-26] MEDS ORDERED: RX INFO: IV CONTRAST WAS GIVEN 1 EACH MISC MISCELLANE PRN (17:45)
[2020-04-26 17:55] LABS: Glucose,Whole Blood 164 mg/dL (75-99)
[2020-04-26] MEDS ORDERED: propofoL 100 ML IV ONE (18:23)
[2020-04-26] MEDS ORDERED: SUCCINYLCHOLINE CHLORIDE VIAL 200 MG/10 ML VIAL IV ONE (18:37)
[2020-04-26] MEDS ORDERED: ETOMIDATE 2 MG/ML 10 ML VIAL ONE (18:37)
[2020-04-26 18:52] LABS: Glucose,Whole Blood 148 mg/dL (75-99)
[2020-04-26] MEDS: HEPARIN SOD,PORK IN 0.45% NACL 25,000 UNIT in 0.45% NACL 1 250ML.BAG IV SCH (19:07)
[2020-04-26] MEDS ORDERED: FUROSEMIDE 10 MG/ML 4 ML VIAL IV STA (19:21)
[2020-04-26] MEDS: ALBUTEROL HFA INHALER INHALATION SCH ×2 (19:23→19:27)
[2020-04-26] MEDS ORDERED: NOREPINEPHRIN 4 MG-0.9% NS PMX 4 MG/250 ML ML IV ONE (19:39)
--- NOTE | 2020-04-26 19:49 | XR ---
EXAMINATION TYPE: XR chest 1V DATE OF EXAM: 04/26/2020 COMPARISON: Today HISTORY: Heart attack. Chest pain. TECHNIQUE: Single view FINDINGS: There is diffuse pulmonary interstitial and airspace edema. There is endotracheal tube 2.4 cm from the giovani. There is nasogastric tube with the tip in the midesophagus at approximately T8 le shagufta. There is neural stimulator over the thoracic spine. IMPRESSION: Nasogastric tube is in the esophagus. There is moderate pulmonary edema unchanged compare d to exam 4 hours ago.
[2020-04-26 20:11] LABS: ABG Base Excess -5.1 mmol/L; ABG HCO3 21 mmol/L (21-25); ABG Oxygen Saturation 97.6 % (94-97); ABG PCO2 42 mmHg (35-45); ABG PH 7.31 (7.35-7.45); ABG PO2 129 mmHg (83-108); ABG TCO2 22 mmol/L (19-24)
[2020-04-26] MEDS ORDERED: NALOXONE 0.4 MG/ML 1 ML VIAL IV PRN (21:14)
--- NOTE | 2020-04-26 21:49 | XR ---
EXAMINATION TYPE: XR chest 1V portable DATE OF EXAM: 04/26/2020 COMPARISON: Today HISTORY: Respiratory failure. TECHNIQUE: FINDINGS: Endotracheal tube is 3 cm from the giovani. There is nasogastric tube with the tip in the lo wer esophagus at the level of T9. There is pulmonary interstitial and airspace edema. Heart is enlarg ed. There are chest leads. IMPRESSION: Nasogastric tube is in the esophagus. Unchanged. Pulmonary edema is the same or slightly worse than the exam 2 hours ago.
[2020-04-26] MEDS: NOREPINEPHRINE 4 MG in SODIUM CHLORIDE 0.9% 250 ML IV SCH (22:07)
[2020-04-26] MEDS: methylPREDNISolone SOD SUCCI 40 MG/ML 1 ML VIAL IV SCH (22:09)
--- NOTE | 2020-04-26 22:18 | XR ---
EXAMINATION TYPE: XR chest 1V portable DATE OF EXAM: 04/26/2020 COMPARISON: Today HISTORY: Check tube placement TECHNIQUE: FINDINGS: There is nasogastric tube with the tip well below the diaphragm in the stomach. There is pu lmonary interstitial and airspace edema. The endotracheal tube is 3 cm from the giovani. There are homero st leads. IMPRESSION: NG tube is in good position. There is pulmonary interstitial and airspace edema slightly improved compared to exam one hour ago.
[2020-04-26] MEDS: GABAPENTIN 400 MG CAP PO SCH (22:30)
[2020-04-26] MEDS: HYDROmorphone 1 MG/ML 1 ML SYRINGE IVP PRN (22:37)
[2020-04-26 23:08] LABS: Amorphous Sediment,Urine Rare /hpf; Appearance,Urine Cloudy (Clear); Bacteria,Urine Many /hpf; Bilirubin,Urine Negative (Negative); Blood,Urine Small (Negative); Budding Yeast,Urine Occasional /hpf; Color,Urine Yellow; Glucose,Urine (UA) Negative (Negative); Ketones,Urine Negative (Negative); Leukocyte Esterase,Urine Large (Negative); Mucus,Urine Rare /hpf; Nitrite,Urine Negative (Negative); PH, Urine 5.5 (5.0-8.0); Protein,Urine Trace (Negative); RBC,Urine 42 /hpf (0-5); Specific Gravity,Urine 1.024 (1.001-1.035); Urobilinogen,Urine <2.0 mg/dL (<2.0); WBC,Urine 17 /hpf (0-5)
[2020-04-26] MEDS: CHLORHEXIDINE GLUCONATE 15 ML CUP MUCOUS MEM SCH (23:35)
[2020-04-26] MEDS: ASCORBIC ACID 500 MG TAB PO SCH (23:36)
[2020-04-26] MEDS: ATORVASTATIN 40 MG TAB PO SCH (23:36)
[2020-04-26 23:50] LABS: Glucose,Whole Blood 159 mg/dL (75-99)
[2020-04-26] MEDS: INSULIN ASPART (NovoLOG) 100 UNIT/ML VIAL SQ SCH (23:51)
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
[2020-04-27] MEDS: GABAPENTIN 400 MG CAP PO SCH ×3 (03:46→20:06)
[2020-04-27] MEDS: methylPREDNISolone SOD SUCCI 40 MG/ML 1 ML VIAL IV SCH ×3 (03:46→20:05)
[2020-04-27] MEDS: HYDROmorphone 1 MG/ML 1 ML SYRINGE IVP PRN ×2 (03:58→14:28)
[2020-04-27] MEDS: amLODIPine 5 MG TAB PO SCH (04:43)
[2020-04-27 05:00] LABS: Glucose,Whole Blood 189 mg/dL (75-99)
[2020-04-27] MEDS: INSULIN ASPART (NovoLOG) 100 UNIT/ML VIAL SQ SCH ×3 (05:02→18:30)
[2020-04-27 05:12] LABS: Anisocytosis Slight; Basophils % (A) 0 %; Eosinophils # (A) 0.1 k/uL (0-0.7); Eosinophils % (A) 1 %; HCT 34.6 % (34.0-46.0); HGB 10.6 gm/dL (11.4-16.0); Hypochromasia Moderate; Lymphocytes # (A) 0.8 k/uL (1.0-4.8); Lymphocytes % (A) 5 %; MCH 25.9 pg (25.0-35.0); MCHC 30.6 g/dL (31.0-37.0); MCV 84.7 fL (80.0-100.0); Mean Platelet Volume 8.8; Monocytes # (A) 0.4 k/uL (0-1.0); Monocytes % (A) 3 %; Neutrophils % (A) 91 %; Platelet Count 205 k/uL (150-450); RBC 4.08 m/uL (3.80-5.40); RDW 16.4 % (11.5-15.5); WBC 15.4 k/uL (3.8-10.6)
[2020-04-27 05:23] LABS: ABG Base Excess -4.4 mmol/L; ABG HCO3 22 mmol/L (21-25); ABG Oxygen Saturation 93.2 % (94-97); ABG PCO2 44 mmHg (35-45); ABG PH 7.31 (7.35-7.45); ABG PO2 78 mmHg (83-108); ABG TCO2 23 mmol/L (19-24); Allen Test Performed? Yes
[2020-04-27 05:31] LABS: Albumin 2.7 g/dL (3.5-5.0); Calcium 7.8 mg/dL (8.4-10.2); Total Bilirubin 0.4 mg/dL (0.2-1.3); Total Protein 5.5 g/dL (6.3-8.2)
[2020-04-27 05:49] LABS: C Reactive Protein 189.5 mg/L (<10.0)
[2020-04-27 05:57] LABS: Cholesterol 71 mg/dL (<200); HDL Cholesterol 18 mg/dL (40-60); LDL Cholesterol,Calculated 27 mg/dL (0-99); Triglycerides 129 mg/dL (<150)
[2020-04-27] MEDS ORDERED: NICOTINE 14MG/24HR PATCH TRANSDERM SCH (06:00)
[2020-04-27] MEDS ORDERED: PANTOPRAZOLE 40 MG TABLET PO SCH (06:00)
--- NOTE | 2020-04-27 06:22 | XR ---
EXAMINATION TYPE: XR chest 1V portable DATE OF EXAM: 04/27/2020 CLINICAL HISTORY: Difficulty breathing progress study. TECHNIQUE: Single AP portable semiupright view of the chest is obtained. COMPARISON: Chest x-ray from one day earlier and older studies FINDINGS: Stable endotracheal and orogastric tubes. Persistent bilateral opacities redemonstrated. Pe rsistent cardiomegaly with atherosclerotic thoracic aorta. Spinal stimulator device redemonstrated. O verlying EKG leads redemonstrated. IMPRESSION: Cardiomegaly with persistent bilateral multifocal infiltrates and suspected organizing l ower lung consolidations consistent with covid-19 infection .
--- NOTE | 2020-04-27 08:00 | ECHOF ---
Referral Reason:stemi MEASUREMENTS -------- HEIGHT: 147.3 cm WEIGHT: 154.2 kg BP: 144/66 RVIDd: 4.3 cm (< 3.3) IVSd: 1.4 cm (0.6 - 1.1) LVIDd: 3.5 cm (3.9 - 5.3) LVPWd: 2.0 cm (0.6 - 1.1) IVSs: 1.9 cm LVIDs: 2.6 cm LVPWs: 2.1 cm Ao Diam: 2.7 cm (2.0 - 3.7) AV Cusp: 1.4 cm (1.5 - 2.6) MV EXCURSION: 16.541 mm (> 18.000) MV EF SLOPE: 134 mm/s (70 - 150) EPSS: 0.2 cm MV E Maik: 0.58 m/s MV DecT: 174 ms MV A Maik: 0.98 m/s MV E/A Ratio: 0.59 RAP: 5.00 mmHg RVSP: 37.92 mmHg FINDINGS -------- Sinus rhythm. This was a technically difficult study with suboptimal apical views. The left ventricular size is normal. There is moderate concentric left ventricular hypertrophy. T he calculated left ventricular ejection fraction is 50%. Inferior Hypokinesis The right ventricle is severely enlarged. The left atrium is moderately dilated. The right atrium was not well visualized. 5.0mg of Lumason was utilized for enhancement of images Interatrial and interventricular septum intact. The aortic valve is trileaflet and appears structurally normal. There is mild aortic valve sclerosi s. There is no evidence of aortic regurgitation. There is no evidence of aortic stenosis. Mild mitral regurgitation is present. [id number] tricuspid regurgitation present. There is mild pulmonary hypertension. The right ventricular systolic pressure, as measured by Doppler, is 37.92mmHg. There is no pulmonic regurgitation present. The aortic root size is normal. IVC Not well visulized. There is no pericardial effusion. CONCLUSIONS -------- 1. The left ventricular size is normal. 2. There is moderate concentric left ventricular hypertrophy. 3. The calculated left ventricular ejection fraction is 50%. 4. Inferior Hypokinesis 5. The right ventricle is severely enlarged. 6. The left atrium is moderately dilated. 7. There is mild aortic valve sclerosis. 8. Mild mitral regurgitation is present. 9. [id number] tricuspid regurgitation present. 10. There is mild pulmonary hypertension. 11. The right ventricular systolic pressure, as measured by Doppler, is 37.92mmHg. OPERATIONS VICE PRESIDENT: Rosa Smith RDCS
[2020-04-27] MEDS: FOLIC ACID 1 MG TAB PO SCH (08:52)
[2020-04-27] MEDS: PANTOPRAZOLE 40 MG/10 ML VIAL IVP SCH (08:52)
[2020-04-27] MEDS: ASPIRIN 81 MG PO SCH (08:52)
[2020-04-27] MEDS: CLOPIDOGREL 75 MG TAB PO SCH (08:52)
[2020-04-27] MEDS: ISOSORBIDE MONONITRATE ER 30 MG TAB.ER.24H PO SCH (08:53)
[2020-04-27] MEDS: CHLORHEXIDINE GLUCONATE 15 ML CUP MUCOUS MEM SCH ×2 (08:53→20:04)
[2020-04-27] MEDS: NICOTINE 14MG/24HR PATCH TRANSDERM SCH (08:54)
[2020-04-27] MEDS: FUROSEMIDE 10 MG/ML 4 ML VIAL IV SCH ×2 (08:56→20:05)
[2020-04-27] MEDS: CHOLECALCIFEROL 400 UNIT TAB PO SCH (08:56)
[2020-04-27] MEDS: ZINC SULFATE 220 MG CAP PO SCH (08:56)
[2020-04-27] MEDS: SERTRALINE 100 MG TAB PO SCH (08:56)
[2020-04-27] MEDS: INSULIN DETEMIR (LEVEMIR) 100 UNIT/ML SYR SQ SCH (08:57)
[2020-04-27] MEDS ORDERED: ASPIRIN 325 MG TAB PO SCH (09:00)
[2020-04-27] MEDS: ALBUTEROL HFA INHALER INHALATION SCH ×4 (09:07→19:08)
[2020-04-27 10:47] LABS: Ferritin 242.9 ng/mL (10.0-291.0)
--- NOTE | 2020-04-27 11:53 | XR ---
EXAMINATION TYPE: XR chest 1V portable DATE OF EXAM: 04/27/2020 COMPARISON: 04/27/2020 HISTORY: Tube placement TECHNIQUE: Single frontal view of the chest is obtained. FINDINGS: Stable ET and NG tubes. Persistent bilateral opacities redemonstrated. Persistent cardiome dale with atherosclerotic thoracic aorta. Spinal stimulator device redemonstrated. Tiny bilateral ple ural effusion suspected. No pneumothorax. Central line stable. IMPRESSION: 1. Diffuse pleural-parenchymal changes and cardiomegaly are stable.
[2020-04-27 13:13] LABS: Glucose,Whole Blood 174 mg/dL (75-99)
[2020-04-27] MEDS: HEPARIN SOD,PORK IN 0.45% NACL 25,000 UNIT in 0.45% NACL 1 250ML.BAG IV SCH (13:57)
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
--- NOTE | 2020-04-27 17:13 | PCN ---
PROCEDURE NOTE PROCEDURE REPORT: Placement of a right internal jugular triple-lumen catheter. PREOPERATIVE DIAGNOSIS: Acute hypoxic respiratory failure. POSTOPERATIVE DIAGNOSIS: Acute hypoxic respiratory failure. ANESTHESIA USED: Two mL of 1% lidocaine. PROCEDURE: The patient was placed in a Trendelenburg position, the right cervical region was prepared in a sterile fashion and drapes were applied. The area of the right cervical region was locally anesthetized with lidocaine. Then using the anterior approach, the right internal jugular vein was easily cannulated, a guidewire was placed, the area around the guidewire was dilated. The triple-lumen catheter was inserted over the guidewire, guidewire was removed. Good blood flow noted in the 3 different ports of the triple-lumen catheter. Line was secured using 3.0 silk sutures. Chest x-ray showed adequate placement of the line, and no evidence of any immediate complications. MMKRISTIE / EDITHN: [id number] /
--- NOTE | 2020-04-27 17:19 | OP ---
OPERATIVE REPORT OPERATIVE REPORT: Placement of a right radial arterial line. PREOPERATIVE DIAGNOSIS: Acute hypoxic respiratory failure and hypotension. POSTOPERATIVE DIAGNOSIS: Acute hypoxic respiratory failure and hypotension. ANESTHESIA USED: None deployed. PROCEDURE DESCRIPTION: The right wrist was prepared in a sterile fashion. Drapes were applied. The right radial artery was palpated, cannulated. A guidewire was placed. A Cook's catheter was inserted over the guidewire. Guidewire was removed. The line was secured using 3.0 silk sutures. No complications. Adequate waveform noted. MMODL / IJN: [id number] /
[2020-04-27 17:21] LABS: Glucose,Whole Blood 179 mg/dL (75-99)
[2020-04-27] MEDS: NOREPINEPHRINE 4 MG in SODIUM CHLORIDE 0.9% 250 ML IV SCH (17:21)
[2020-04-27] MEDS: ASCORBIC ACID 500 MG TAB PO SCH (20:05)
[2020-04-27] MEDS: ATORVASTATIN 40 MG TAB PO SCH (20:05)
[2020-04-28 00:34] LABS: Glucose,Whole Blood 166 mg/dL (75-99)
[2020-04-28] MEDS: INSULIN ASPART (NovoLOG) 100 UNIT/ML VIAL SQ SCH ×4 (00:37→18:38)
[2020-04-28 05:18] LABS: Allen Test Performed? Yes
[2020-04-28 05:30] LABS: ABG Base Excess -1.7 mmol/L; ABG HCO3 24 mmol/L (21-25); ABG PCO2 41 mmHg (35-45); ABG PH 7.37 (7.35-7.45); ABG PO2 82 mmHg (83-108); ABG TCO2 25 mmol/L (19-24)
[2020-04-28 05:33] LABS: Anisocytosis Slight; Basophils # (A) 0.1 k/uL (0-0.2); Basophils % (A) 0 %; Eosinophils # (A) 0.1 k/uL (0-0.7); Eosinophils % (A) 1 %; HCT 32.9 % (34.0-46.0); HGB 10.5 gm/dL (11.4-16.0); Lymphocytes # (A) 1.2 k/uL (1.0-4.8); Lymphocytes % (A) 10 %; MCH 26.4 pg (25.0-35.0); MCHC 31.9 g/dL (31.0-37.0); MCV 82.7 fL (80.0-100.0); Mean Platelet Volume 8.4; Monocytes # (A) 0.7 k/uL (0-1.0); Monocytes % (A) 6 %; Neutrophils # (A) 10.3 k/uL (1.3-7.7); Neutrophils % (A) 83 %; Platelet Count 190 k/uL (150-450); RBC 3.97 m/uL (3.80-5.40); RDW 16.5 % (11.5-15.5); WBC 12.5 k/uL (3.8-10.6)
[2020-04-28 05:59] LABS: Albumin 2.6 g/dL (3.5-5.0); Calcium 8.2 mg/dL (8.4-10.2); Potassium 3.8 mmol/L (3.5-5.1); Total Bilirubin 0.3 mg/dL (0.2-1.3); Total Protein 5.4 g/dL (6.3-8.2)
[2020-04-28 06:11] LABS: C Reactive Protein 136.6 mg/L (<10.0)
[2020-04-28] MEDS: GABAPENTIN 400 MG CAP PO SCH ×3 (06:24→21:08)
[2020-04-28] MEDS ORDERED: Potassium Replacement Protocol 1 EACH MISC MISCELLANE PRN (06:25)
[2020-04-28] MEDS: NICOTINE 14MG/24HR PATCH TRANSDERM SCH (06:39)
[2020-04-28] MEDS: methylPREDNISolone SOD SUCCI 40 MG/ML 1 ML VIAL IV SCH ×3 (06:39→19:53)
[2020-04-28] MEDS ORDERED: POTASSIUM BICARBONATE/CIT AC 20 MEQ TABLET.EFF NG-TUBE SCH (08:00)
[2020-04-28] MEDS: ALBUTEROL HFA INHALER INHALATION SCH ×4 (08:18→21:18)
[2020-04-28] MEDS: ZINC SULFATE 220 MG CAP PO SCH (08:22)
[2020-04-28] MEDS: CHLORHEXIDINE GLUCONATE 15 ML CUP MUCOUS MEM SCH ×2 (08:22→20:59)
[2020-04-28] MEDS: FOLIC ACID 1 MG TAB PO SCH (08:22)
[2020-04-28] MEDS: INSULIN DETEMIR (LEVEMIR) 100 UNIT/ML SYR SQ SCH (08:22)
[2020-04-28] MEDS: PANTOPRAZOLE 40 MG/10 ML VIAL IVP SCH (08:22)
[2020-04-28] MEDS: ASPIRIN 81 MG PO SCH (08:22)
[2020-04-28] MEDS: FUROSEMIDE 10 MG/ML 4 ML VIAL IV SCH ×2 (08:23→21:09)
[2020-04-28] MEDS: CLOPIDOGREL 75 MG TAB PO SCH (08:23)
[2020-04-28] MEDS: SERTRALINE 100 MG TAB PO SCH (08:23)
[2020-04-28] MEDS: CHOLECALCIFEROL 400 UNIT TAB PO SCH (08:23)
[2020-04-28] MEDS: ISOSORBIDE MONONITRATE ER 30 MG TAB.ER.24H PO SCH ×2 (08:25→14:51)
[2020-04-28] MEDS: amLODIPine 5 MG TAB PO SCH ×2 (08:25→14:51)
--- NOTE | 2020-04-28 09:07 | XR ---
EXAMINATION TYPE: XR chest 1V DATE OF EXAM: 04/28/2020 COMPARISON: 04/27/2020 INDICATION: Intubation TECHNIQUE: Single frontal view of the chest is obtained. FINDINGS: The heart size is mildly prominent. The pulmonary vasculature is prominent. Diffuse increased lung markings are present. This may be greater into the left lower lobe. Findings h ave some improvement overall comparison. Endotracheal tube tip is above the giovani. Nasogastric tube transverses the thorax. Right central heber ous catheter tip is in the right atrium. IMPRESSION: 1. Improving infiltrates bilateral lung valdez. 2. Lines and catheters discussed above.
[2020-04-28 09:43] LABS: Ferritin 220.9 ng/mL (10.0-291.0)
[2020-04-28 11:38] LABS: Glucose,Whole Blood 153 mg/dL (75-99)
--- NOTE | 2020-04-28 14:08 | PN ---
PROGRESS NOTE Starr James got extubated this morning. Her vitals are stable. Pulse rate in the 50s. The respiratory rate is 20 to 25, blood pressure 165/67. She is on norepinephrine is being tapered off and will restart the beta blockers. She received aspirin and Plavix today via the OG before she was extubated. She came in with an acute myocardial infarction, underwent stenting, but unfortunately also has COVID and is isolated. This is a chart review. Her 2D echo shows ejection fraction of 50% with the inferior wall hypokinesis. Right ventricular severely enlarged. She had an inferior ST elevation with lateral extension. PLAN: I reviewed her medications. I spoke to the nurse. She is on amlodipine 5 mg daily, aspirin, atorvastatin 40 mg p.o. daily, Plavix, Lasix 40 mg q.12 and isosorbide and we will restart her beta blockers now. MMODL / IJN: [id number] /
--- NOTE | 2020-04-28 14:35 | P.PN ---
Subjective Progress Note Date: 04/28/20 Principal diagnosis: Acute hypoxic respiratory failure secondary to Covid 19 pneumonitis. This is a 65-year-old female with history of coronary artery disease, previous PCI of the first diagonal branch of LAD, PCI of mid to distal LAD in March of 2019, moderate to severe disease involving proximal RCA, and peripheral vessel occlusive disease and previous balloon angioplasty of left SFA. Multiple stents placed in her peripheral arteries including left common iliac and right external iliac patient is also known to have history of hypertension, diabetes, dyslipidemia, and tobacco dependence syndrome. Patient was recently in the hospital with covid 19 pneumonitis. She was discharged on April 21 to the [facility]. Patient received full treatment, her initial diagnosis was made on April 10. On 04/26/20, patient was brought into the ER with sudden onset of chest discomfort, she woke up at 2:30 AM in the morning experiencing severe chest pain. She was also complaining of shortness of breath, and felt that her heart was racing. Upon arrival she was on a nonrebreather, O2 saturation was 78%. EKG upon presentation showed deep T-wave inversion noted in the high lateral leads anteriorly with ST elevation noted inferiorly with underlying LVH. Chest x-ray clearly showed evidence of bilateral multifocal interstitial infiltrates. Remind you patient is still recovering from recent Covid 19 pneumonitis infection. Patient was bolused with heparin, received full aspirin and route, sublingual nitroglycerin was apparently given and a patch was applied. Patient underwent cardiac catheterization, and she had aspiration thrombectomy from the right coronary artery. Successful stenting of the ostial right coronary artery using a drug eluting stent, and she was sent to the ICU right after the procedure, patient was on a nonrebreather mask, extremely tachypneic upon arrival to the ICU, and I was made aware of this patient as soon as she arrived. I recommended immediate intubation and placement on mechanical ventilation. Patient is now on mechanical ventilation, she is on assist control rate of 20 volume is 450 FiO2 is 60% and I cut it down to 50% PEEP at 8. ABG this morning showed a pO2 of 78 pCO2 of 44 pH of 7.31. Patient is on propofol at 55 mcg/kg/m, IV fluids at KVO, patient was having intermittent episodes of hypotension, and I recommended emergent placement of right internal jugular central line, and an arterial line was also placed. Patient is definitely not ready for any weaning at this point. Chest x-ray is quite abnormal showing diffuse interstitial infiltrates, most likely this is related to her recent Covid 19 pneumonitis, although the possibility of underlying pulmonary edema is not entirely ruled out. Echocardiogram showed good LV function, there was inferior hypokinesis. Labs showed slight leukocytosis, hemoglobin is 10.6, d- dimer was 0.99. Troponin was as high as 12. Reevaluated today on 04/28/20, patient remains intubated and mechanically ventilated. She is presently on assist control rate of 20 tidal volume is 450 FiO2 is 50% PEEP is 8. ABG showed a pO2 of 82 pCO2 of 41 pH of 7.37. Patient is now off norepinephrine, she is status post stent of the RCA. Patient had Covid 19 diagnosis on 04/10. And her chest x-ray showed diffuse interstitial infiltrates. This was felt to be all related to Covid 19 pneumonitis, although the possibility of underlying interstitial edema in addition to the pneumonitis is not entirely ruled out. Patient was awakened today, she was placed on a pressure support of 10 and CPAP, and she was noted to do fairly well with good tidal volume good respiratory rate in the low 20s, hence I recommended extubation of the patient to a nasal cannula. CBC is relatively normal. Electrolytes are normal. Creatinine is improving down to 1.66. LDH is better today 1132 C-reactive protein is also better today. Objective - Vital Signs Vital signs: Vital Signs Temp 97.8 F 04/28/20 12:00 Pulse 56 L 04/28/20 14:00 Resp 37 H 04/28/20 14:00 BP 121/72 04/27/20 01:30 Pulse Ox 93 L 04/28/20 14:00 Intake & Output 04/27/20 04/28/20 04/28/20 18:59 06:59 18:59 Intake Total 860.287 519.792 275.00 Output Total 1490 1170 1560 Balance -629.713 -650.208 -1285.00 Weight 116.2 kg 116.2 kg Intake: IV 175 0.9NS 175 Intake, IV Titration 800.287 519.792 100.00 Amount Norepinephrine 4 mg In 100.871 Sodium Chloride 0.9% 250 ml @ 0.02 MCG/KG/MIN 11. 752 mls/hr IV .[id number] [facility] Rx#:[id number] Sodium Chloride 0.9% 1, 300 225 000 ml @ 25 mls/hr IV . Q24H [facility] Rx#:[id number] propofoL 1,000 mg In 399.416 294.792 100.00 Empty Bag 1 bag @ Titrate IV .Q0M [facility] Rx#: [id number] Other 60 Output: Gastric Drainage 300 Urine 1190 1170 1560 Other: Voiding Method Indwelling Catheter Indwelling Catheter Indwelling Catheter ABP, PAP, CO, CI - Last Documented Arterial Blood Pressure 166/63 - Exam Physical exam revealed a 65-year-old female, intubated,, on mechanical ventilation. HEENT: PERRLA, EOMI, no icterus, no neck masses, no JVD, short obese neck. Endotracheal tube and orogastric tubes are intact. CHEST EXAMINATION: Symmetrical chest expansion, crackles at the bases bilaterally. CARDIAC: Normal S1, S2 with no gallops. No murmurs ABDOMEN: Morbidly obese, soft, nontender, no megaly, no rebound, no guarding. Extremities: No clubbing edema or cyanosis Neurological: Arousable, followed simple instructions, seems to be appropriate Skin: No rash or skin lesions. Psychiatric: Warm mood and affect. Normal mental status. Musculoskeletal: No joint swelling or deformity. Normal range of motion. - Labs CBC & Chem 7: 04/28/20 05:30 04/28/20 05:30 Labs: Abnormal Lab Results - Last 24 Hours (Table) 04/27/20 04/28/20 04/28/20 Range/Units 17:13 00:33 04:53 WBC (3.8-10.6) k/uL Hgb (11.4-16.0) gm/dL Hct (34.0-46.0) % RDW (11.5-15.5) % Neutrophils # (1.3-7.7) k/uL ABG pO2 82 L (83-108) mmHg ABG Total CO2 25 H (19-24) mmol/L BUN (7-17) mg/dL Creatinine (0.52-1.04) mg/dL Glucose (74-99) mg/dL POC Glucose (mg/dL) 179 H 166 H (75-99) mg/dL Calcium (8.4-10.2) mg/dL ALT (4-34) U/L Lactate Dehydrogenase (313-618) U/L C-Reactive Protein (<10.0) mg/L Total Protein (6.3-8.2) g/dL Albumin (3.5-5.0) g/dL 04/28/20 04/28/20 04/28/20 Range/Units 05:30 05:30 11:32 WBC 12.5 H (3.8-10.6) k/uL Hgb 10.5 L (11.4-16.0) gm/dL Hct 32.9 L (34.0-46.0) % RDW 16.5 H (11.5-15.5) % Neutrophils # 10.3 H (1.3-7.7) k/uL ABG pO2 (83-108) mmHg ABG Total CO2 (19-24) mmol/L BUN 35 H (7-17) mg/dL Creatinine 1.66 H (0.52-1.04) mg/dL Glucose 141 H (74-99) mg/dL POC Glucose (mg/dL) 153 H (75-99) mg/dL Calcium 8.2 L (8.4-10.2) mg/dL ALT 80 H (4-34) U/L Lactate Dehydrogenase 1132 H (313-618) U/L C-Reactive Protein 136.6 H (<10.0) mg/L Total Protein 5.4 L (6.3-8.2) g/dL Albumin 2.6 L (3.5-5.0) g/dL Microbiology - Last 24 Hours (Table) 04/26/20 22:45 Urine Culture - Preliminary Urine,Voided Group D Enterococcus 04/26/20 21:25 Gram Stain - Preliminary Sputum Sputum Culture - Preliminary Assessment and Plan Assessment: Impression: Acute hypoxic respiratory failure secondary to covid [address] elevation myocardial infarction/inferior wall NC, status post stenting of RCA. Severe peripheral vessel occlusive disease and previous SFA atherectomy and balloon angioplasty Morbid obesity. History of CVA and multiple TIAs. Severe coronary artery disease. Multiple stents. History of GERD. History of gastric ulcer disease. History of cerebral aneurysm requiring coiling. History of nephrolithiasis. Type 2 diabetes. Tobacco dependence syndrome. Recommendation: Will give the patient a trial. Today, we will utilize pressure support of 8 and CPAP, and we will likely proceed to extubation if she tolerates the weaning trial well. May consider extubating the patient to high flow nasal cannula.. Continue the Covid 19 cocktail. Continue GI and DVT prophylaxis.. Discontinue norepinephrine, this was discontinued once the patient went off propofol.. Advanced diet as tolerated if the patient is extubated. We'll continue to monitor the patient in the ICU even if extubated today. Prognosis remains relatively guarded. Critical care time is over 30 minutes Time with Patient: Greater than 30
[2020-04-28] MEDS: METOPROLOL TARTRATE 25 MG TAB PO SCH ×2 (14:50→21:10)
[2020-04-28] MEDS: NOREPINEPHRINE 4 MG in SODIUM CHLORIDE 0.9% 250 ML IV SCH (18:00)
[2020-04-28 18:38] LABS: Glucose,Whole Blood 126 mg/dL (75-99)
[2020-04-28] MEDS: ATORVASTATIN 40 MG TAB PO SCH (21:08)
[2020-04-28] MEDS: ASCORBIC ACID 500 MG TAB PO SCH (21:08)
[2020-04-29 00:12] LABS: Glucose,Whole Blood 139 mg/dL (75-99)
[2020-04-29 05:18] LABS: Anisocytosis Slight; Basophils % (A) 0 %; Eosinophils % (A) 0 %; HCT 30.8 % (34.0-46.0); HGB 9.9 gm/dL (11.4-16.0); Lymphocytes # (A) 1.4 k/uL (1.0-4.8); Lymphocytes % (A) 16 %; MCH 26.2 pg (25.0-35.0); MCV 81.7 fL (80.0-100.0); Mean Platelet Volume 8.7; Monocytes # (A) 0.3 k/uL (0-1.0); Monocytes % (A) 4 %; Neutrophils % (A) 79 %; Platelet Count 172 k/uL (150-450); RBC 3.77 m/uL (3.80-5.40); RDW 17.2 % (11.5-15.5); WBC 8.9 k/uL (3.8-10.6)
[2020-04-29] MEDS: INSULIN ASPART (NovoLOG) 100 UNIT/ML VIAL SQ SCH ×5 (05:21→22:00)
[2020-04-29] MEDS: methylPREDNISolone SOD SUCCI 40 MG/ML 1 ML VIAL IV SCH ×3 (05:24→19:41)
[2020-04-29 05:32] LABS: Albumin 2.6 g/dL (3.5-5.0); C Reactive Protein 53.6 mg/L (<10.0); Calcium 8.2 mg/dL (8.4-10.2); Potassium 3.6 mmol/L (3.5-5.1); Total Bilirubin 0.4 mg/dL (0.2-1.3); Total Protein 5.5 g/dL (6.3-8.2)
[2020-04-29 06:05] LABS: Glucose,Whole Blood 83 mg/dL (75-99)
[2020-04-29] MEDS: NICOTINE 14MG/24HR PATCH TRANSDERM SCH (06:07)
[2020-04-29] MEDS: GABAPENTIN 400 MG CAP PO SCH ×3 (06:07→21:40)
[2020-04-29] MEDS ORDERED: Potassium Replacement Protocol 1 EACH MISC MISCELLANE PRN (06:22)
[2020-04-29] MEDS ORDERED: POTASSIUM CHLORIDE ER 20 MEQ TAB.ER PO SCH (07:00)
--- NOTE | 2020-04-29 07:18 | XR ---
EXAMINATION TYPE: XR chest 1V DATE OF EXAM: 04/29/2020 COMPARISON: 04/28/2020 HISTORY: Shortness of breath TECHNIQUE: Single frontal view of the chest is obtained. FINDINGS: ET and NG tube have been removed. Diffuse bilateral airspace disease noted. Central line s table. Nonspecific lucency along the right hemidiaphragm. Stimulator device noted. IMPRESSION: Stable diffuse bilateral airspace disease correlate for pneumonia.
[2020-04-29] MEDS: ALBUTEROL HFA INHALER INHALATION SCH ×4 (08:04→19:39)
[2020-04-29] MEDS: INSULIN DETEMIR (LEVEMIR) 100 UNIT/ML SYR SQ SCH (08:30)
[2020-04-29] MEDS: METOPROLOL TARTRATE 25 MG TAB PO SCH ×2 (08:32→21:40)
[2020-04-29] MEDS: CHOLECALCIFEROL 400 UNIT TAB PO SCH (08:32)
[2020-04-29] MEDS: CLOPIDOGREL 75 MG TAB PO SCH (08:32)
[2020-04-29] MEDS: ASPIRIN 81 MG PO SCH (08:32)
[2020-04-29] MEDS: PANTOPRAZOLE 40 MG/10 ML VIAL IVP SCH (08:32)
[2020-04-29] MEDS: FOLIC ACID 1 MG TAB PO SCH (08:33)
[2020-04-29] MEDS: SERTRALINE 100 MG TAB PO SCH (08:33)
[2020-04-29] MEDS: amLODIPine 5 MG TAB PO SCH (08:33)
[2020-04-29] MEDS: ISOSORBIDE MONONITRATE ER 30 MG TAB.ER.24H PO SCH (08:33)
[2020-04-29] MEDS: ZINC SULFATE 220 MG CAP PO SCH (08:33)
[2020-04-29] MEDS: CHLORHEXIDINE GLUCONATE 15 ML CUP MUCOUS MEM SCH ×2 (08:33→21:36)
[2020-04-29 10:02] LABS: Ferritin 227.8 ng/mL (10.0-291.0)
[2020-04-29 12:20] LABS: Glucose,Whole Blood 126 mg/dL (75-99)
--- NOTE | 2020-04-29 13:05 | P.PN ---
Subjective Progress Note Date: 04/29/20 Principal diagnosis: Acute hypoxic respiratory failure secondary to Covid 19 pneumonitis. This is a 65-year-old female with history of coronary artery disease, previous PCI of the first diagonal branch of LAD, PCI of mid to distal LAD in March of 2019, moderate to severe disease involving proximal RCA, and peripheral vessel occlusive disease and previous balloon angioplasty of left SFA. Multiple stents placed in her peripheral arteries including left common iliac and right external iliac patient is also known to have history of hypertension, diabetes, dyslipidemia, and tobacco dependence syndrome. Patient was recently in the hospital with covid 19 pneumonitis. She was discharged on April [address] [facility]. Patient received full treatment, her initial diagnosis was made on April 10. On 04/26/20, patient was brought into the ER with sudden onset of chest discomfort, she woke up at 2:30 AM in the morning experiencing severe chest pain. She was also complaining of shortness of breath, and felt that her heart was racing. Upon arrival she was on a nonrebreather, O2 saturation was 78%. EKG upon presentation showed deep T-wave inversion noted in the high lateral leads anteriorly with ST elevation noted inferiorly with underlying LVH. Chest x-ray clearly showed evidence of bilateral multifocal interstitial infiltrates. Remind you patient is still recovering from recent Covid 19 pneumonitis infection. Patient was bolused with heparin, received full aspirin and route, sublingual nitroglycerin was apparently given and a patch was applied. Patient underwent cardiac catheterization, and she had aspiration thrombectomy from the right coronary artery. Successful stenting of the ostial right coronary artery using a drug eluting stent, and she was sent to the ICU right after the procedure, patient was on a nonrebreather mask, extremely tachypneic upon arrival to the ICU, and I was made aware of this patient as soon as she arrived. I recommended immediate intubation and placement on mechanical ventilation. Patient is now on mechanical ventilation, she is on assist control rate of 20 volume is 450 FiO2 is 60% and I cut it down to 50% PEEP at 8. ABG this morning showed a pO2 of 78 pCO2 of 44 pH of 7.31. Patient is on propofol at 55 mcg/kg/m, IV fluids at KVO, patient was having intermittent episodes of hypotension, and I recommended emergent placement of right internal jugular central line, and an arterial line was also placed. Patient is definitely not ready for any weaning at this point. Chest x-ray is quite abnormal showing diffuse interstitial infiltrates, most likely this is related to her recent Covid 19 pneumonitis, although the possibility of underlying pulmonary edema is not entirely ruled out. Echocardiogram showed good LV function, there was inferior hypokinesis. Labs showed slight leukocytosis, hemoglobin is 10.6, d- dimer was 0.99. Troponin was as high as 12. Reevaluated today on 04/28/20, patient remains intubated and mechanically ventilated. She is presently on assist control rate of 20 tidal volume is 450 FiO2 is 50% PEEP is 8. ABG showed a pO2 of 82 pCO2 of 41 pH of 7.37. Patient is now off norepinephrine, she is status post stent of the RCA. Patient had Covid 19 diagnosis on 04/10. And her chest x-ray showed diffuse interstitial infiltrates. This was felt to be all related to Covid 19 pneumonitis, although the possibility of underlying interstitial edema in addition to the pneumonitis is not entirely ruled out. Patient was awakened today, she was placed on a pressure support of 10 and CPAP, and she was noted to do fairly well with good tidal volume good respiratory rate in the low 20s, hence I recommended extubation of the patient to a nasal cannula. CBC is relatively normal. Electrolytes are normal. Creatinine is improving down to 1.66. LDH is better today 1132 C-reactive protein is also better today. Reevaluated today on 04/29/20, patient was extubated yesterday, remains in the ICU, tolerated the extubation well, however she remains on 10 L high flow nasal cannula. Patient continues to have significantly abnormal chest x-ray, it is not clear based on the chest x-ray whether the findings are truly related to Covid 19 pneumonitis, or related to ongoing interstitial edema. I did recommend a BNP level, and I did recommend increasing the Lasix to 40 mg IV push every 8 hours. Clinically the patient is feeling better, breathing a lot easier. Considering the patient's BNP level came back over 14,000, I will go ahead and continue aggressive diuresis on this patient, I am strongly suspecting them the findings are findings of congestive heart failure/diastolic in nature since the echocardiogram showed good LV function. Objective - Vital Signs Vital signs: Vital Signs Temp 97.8 F 04/29/20 12:00 Pulse 48 L 04/29/20 12:00 Resp 21 04/29/20 12:00 BP 121/72 04/27/20 01:30 Pulse Ox 94 L 04/29/20 12:00 Intake & Output 04/28/20 04/29/20 04/29/20 18:59 06:59 18:59 Intake Total 521.268 373 168 Output Total 1935 1848 980 Balance -1413.732 -1475 -812 Weight 116.2 kg 112.3 kg Intake: IV 275 323 168 0.9NS 275 290 150 Laya flush 33 18 Intake, IV Titration 196.268 50 Amount Norepinephrine 4 mg In 96.268 Sodium Chloride 0.9% 250 ml @ 0.02 MCG/KG/MIN 11. 752 mls/hr IV .[id number] [facility] Rx#:[id number] cefTRIAXone 1 gm In 50 Sodium Chloride 0.9% 50 ml @ 100 mls/hr IVPB Q24H [facility] Rx#:[id number] propofoL 1,000 mg In 100.00 Empty Bag 1 bag @ Titrate IV .Q0M [facility] Rx#: [id number] Oral 50 Output: Urine 1934 1848 980 Other: Voiding Method Indwelling Catheter Indwelling Catheter Indwelling Catheter ABP, PAP, CO, CI - Last Documented Arterial Blood Pressure 141/46 - Exam Physical exam revealed a 65-year-old female, on 10 L high flow cannula, in no distress. In the ICU. HEENT: PERRLA, EOMI, no icterus, no neck masses, no JVD, short obese neck. CHEST EXAMINATION: Symmetrical chest expansion, crackles at the bases bilaterally. CARDIAC: Normal S1, S2 with no gallops. No murmurs ABDOMEN: Morbidly obese, soft, nontender, no megaly, no rebound, no guarding. Extremities: No clubbing edema or cyanosis Neurological: Alert and oriented 3, no gross focal neurologic deficits. Skin: No rash or skin lesions. Psychiatric: Normal mood, normal affect and normal mental status examination Musculoskeletal: No joint swelling or deformity. Normal range of motion. - Labs CBC & Chem 7: 04/29/20 05:00 04/29/20 05:00 Labs: Abnormal Lab Results - Last 24 Hours (Table) 04/28/20 04/29/20 04/29/20 Range/Units 18:36 00:10 05:00 RBC (3.80-5.40) m/uL Hgb (11.4-16.0) gm/dL Hct (34.0-46.0) % RDW (11.5-15.5) % BUN 41 H (7-17) mg/dL Creatinine 1.38 H (0.52-1.04) mg/dL POC Glucose (mg/dL) 126 H 139 H (75-99) mg/dL Calcium 8.2 L (8.4-10.2) mg/dL AST 52 H (14-36) U/L ALT 86 H (4-34) U/L Lactate Dehydrogenase 1010 H (313-618) U/L Creatine Kinase 25 L (30-135) U/L C-Reactive Protein 53.6 H (<10.0) mg/L Total Protein 5.5 L (6.3-8.2) g/dL Albumin 2.6 L (3.5-5.0) g/dL 04/29/20 04/29/20 Range/Units 05:00 12:18 RBC 3.77 L (3.80-5.40) m/uL Hgb 9.9 L (11.4-16.0) gm/dL Hct 30.8 L (34.0-46.0) % RDW 17.2 H (11.5-15.5) % BUN (7-17) mg/dL Creatinine (0.52-1.04) mg/dL POC Glucose (mg/dL) 126 H (75-99) mg/dL Calcium (8.4-10.2) mg/dL AST (14-36) U/L ALT (4-34) U/L Lactate Dehydrogenase (313-618) U/L Creatine Kinase (30-135) U/L C-Reactive Protein (<10.0) mg/L Total Protein (6.3-8.2) g/dL Albumin (3.5-5.0) g/dL Microbiology - Last 24 Hours (Table) 04/26/20 21:25 Gram Stain - Final Sputum Sputum Culture - Final 04/26/20 22:45 Urine Culture - Final Urine,Voided Enterococcus faecalis Assessment and Plan Assessment: Impression: Acute hypoxic respiratory failure secondary to covid 19 pneumonitis. And I strongly suspected acute diastolic congestive heart failure Acute diastolic congestive heart failure. Acute ST elevation myocardial infarction/inferior wall MN, status post stenting of RCA. Severe peripheral vessel occlusive disease and previous SFA atherectomy and balloon angioplasty Morbid obesity. History of CVA and multiple TIAs. Severe coronary artery disease. Multiple stents. History of GERD. History of gastric ulcer disease. History of cerebral aneurysm requiring coiling. History of nephrolithiasis. Type 2 diabetes. Tobacco dependence syndrome. Extubated on 04/28/20, tolerated extubation well. Recommendation: Continue aggressive diuresis, increase Lasix to 40 mg IV push every 8 hours. Specially with significantly elevated BNP level, over 14,000. Titrate oxygen accordingly. Continue the Covid 19 cocktail. Continue GI and DVT prophylaxis.. Advance diet as tolerated We'll continue to monitor the patient in the ICU Prognosis remains relatively guarded. Critical care time is over 30 minutes Time with Patient: Greater than 30
[2020-04-29] MEDS: NOREPINEPHRINE 4 MG in SODIUM CHLORIDE 0.9% 250 ML IV SCH (15:30)
[2020-04-29] MEDS: HEPARIN SOD,PORK IN 0.45% NACL 25,000 UNIT in 0.45% NACL 1 250ML.BAG IV SCH (15:40)
[2020-04-29] MEDS: FUROSEMIDE 10 MG/ML 4 ML VIAL IV SCH ×2 (16:10→23:43)
[2020-04-29 16:56] LABS: Glucose,Whole Blood 231 mg/dL (75-99)
[2020-04-29 20:53] LABS: Glucose,Whole Blood 151 mg/dL (75-99)
--- NOTE | 2020-04-29 20:59 | P.PN ---
Subjective Patient's chart was reviewed. She presented with ST elevation MN and underwent aspiration thrombectomy of the RCA followed by successful stenting of the ostial right coronary artery with a drug-eluting stent. She has a recent history of carotid and currently has Coumadin 19 pneumonitis with acute hypoxic respiratory failure She was extubated on the patient remains in the ICU on 10 L high flow nasal cannula She is on Lasix 40 mg IV every 8 hours A 2-D echo shows normal LV systolic function Afebrile 97.8F pulse rate 50 blood pressure 120/72 Labs revealed sodium 141 potassium 3.6 BUN 41 and creatinine 1.38 GFR in the 40s AST 52, ALP 86 LVH 1000 C-reactive protein 53 NT proBNP 14,000 2-D echo shows LV function of 50% with inferior wall hypokinesis consistent with a recent inferior wall MN, dilated/ right ventricle Suggest Continue statins and we'll antiplatelet therapy Continue ICU care Discontinue pressors Continue low-dose beta blockers Continue amlodipine and isosorbide Objective - Vital Signs Vital signs: Vital Signs Temp 98.5 F 04/29/20 20:00 Pulse 57 L 04/29/20 20:00 Resp 21 04/29/20 20:00 BP 121/72 04/27/20 01:30 Pulse Ox 93 L 04/29/20 20:00 Intake & Output 04/29/20 04/29/20 04/30/20 06:59 18:59 06:59 Intake Total 373 336 56 Output Total 1848 1665 400 Balance -1475 -1329 -344 Weight 112.3 kg Intake: IV 323 336 56 0.9NS 290 300 50 Laya flush 33 36 6 Intake, IV Titration 50 Amount cefTRIAXone 1 gm In 50 Sodium Chloride 0.9% 50 ml @ 100 mls/hr IVPB Q24H [facility] Rx#:[id number] Output: Urine 1848 1665 400 Other: Voiding Method Indwelling Catheter Indwelling Catheter Indwelling Catheter ABP, PAP, CO, CI - Last Documented Arterial Blood Pressure 153/58 - Labs CBC & Chem 7: 04/29/20 05:00 04/29/20 05:00 Labs: Abnormal Lab Results - Last 24 Hours (Table) 04/29/20 04/29/20 04/29/20 Range/Units 00:10 05:00 05:00 RBC 3.77 L (3.80-5.40) m/uL Hgb 9.9 L (11.4-16.0) gm/dL Hct 30.8 L (34.0-46.0) % RDW 17.2 H (11.5-15.5) % BUN 41 H (7-17) mg/dL Creatinine 1.38 H (0.52-1.04) mg/dL POC Glucose (mg/dL) 139 H (75-99) mg/dL Calcium 8.2 L (8.4-10.2) mg/dL AST 52 H (14-36) U/L ALT 86 H (4-34) U/L Lactate Dehydrogenase 1010 H (313-618) U/L Creatine Kinase 25 L (30-135) U/L C-Reactive Protein 53.6 H (<10.0) mg/L Total Protein 5.5 L (6.3-8.2) g/dL Albumin 2.6 L (3.5-5.0) g/dL 04/29/20 04/29/20 04/29/20 Range/Units 12:18 16:55 20:52 RBC (3.80-5.40) m/uL Hgb (11.4-16.0) gm/dL Hct (34.0-46.0) % RDW (11.5-15.5) % BUN (7-17) mg/dL Creatinine (0.52-1.04) mg/dL POC Glucose (mg/dL) 126 H 231 H 151 H (75-99) mg/dL Calcium (8.4-10.2) mg/dL AST (14-36) U/L ALT (4-34) U/L Lactate Dehydrogenase (313-618) U/L Creatine Kinase (30-135) U/L C-Reactive Protein (<10.0) mg/L Total Protein (6.3-8.2) g/dL Albumin (3.5-5.0) g/dL Microbiology - Last 24 Hours (Table) 04/26/20 21:25 Gram Stain - Final Sputum Sputum Culture - Final 04/26/20 22:45 Urine Culture - Final Urine,Voided Enterococcus faecalis
[2020-04-29] MEDS ORDERED: INSULIN ASPART (NovoLOG) 100 UNIT/ML VIAL SQ SCH ×2 (21:00→21:38)
[2020-04-29] MEDS: ATORVASTATIN 40 MG TAB PO SCH (21:40)
[2020-04-29] MEDS: ASCORBIC ACID 500 MG TAB PO SCH (21:40)
[2020-04-29] MEDS: CLEVIDIPINE BUTYRATE 25 MG in EMPTY BAG 1 BAG IV SCH (22:25)
[2020-04-30] MEDS: methylPREDNISolone SOD SUCCI 40 MG/ML 1 ML VIAL IV SCH ×3 (04:05→20:35)
[2020-04-30 05:26] LABS: Anisocytosis Slight; Basophils % (A) 0 %; Eosinophils # (A) 0.1 k/uL (0-0.7); Eosinophils % (A) 1 %; HCT 33.2 % (34.0-46.0); HGB 10.8 gm/dL (11.4-16.0); Lymphocytes # (A) 1.5 k/uL (1.0-4.8); Lymphocytes % (A) 14 %; MCH 26.4 pg (25.0-35.0); MCHC 32.5 g/dL (31.0-37.0); MCV 81.2 fL (80.0-100.0); Mean Platelet Volume 8.7; Monocytes # (A) 0.6 k/uL (0-1.0); Monocytes % (A) 6 %; Neutrophils # (A) 8.2 k/uL (1.3-7.7); Neutrophils % (A) 79 %; Platelet Count 175 k/uL (150-450); RBC 4.09 m/uL (3.80-5.40); RDW 16.7 % (11.5-15.5); WBC 10.4 k/uL (3.8-10.6)
[2020-04-30 05:49] LABS: Albumin 2.8 g/dL (3.5-5.0); Calcium 8.5 mg/dL (8.4-10.2); Potassium 3.8 mmol/L (3.5-5.1); Total Bilirubin 0.4 mg/dL (0.2-1.3); Total Protein 5.7 g/dL (6.3-8.2)
[2020-04-30] MEDS ORDERED: POTASSIUM CHLORIDE ER 20 MEQ TAB.ER PO STA (06:15)
[2020-04-30 06:51] LABS: Glucose,Whole Blood 158 mg/dL (75-99)
[2020-04-30] MEDS: CLEVIDIPINE BUTYRATE 25 MG in EMPTY BAG 1 BAG IV SCH (06:59)
[2020-04-30] MEDS: GABAPENTIN 400 MG CAP PO SCH ×3 (07:00→20:34)
[2020-04-30] MEDS: INSULIN ASPART (NovoLOG) 100 UNIT/ML VIAL SQ SCH ×4 (07:00→20:35)
[2020-04-30] MEDS: NICOTINE 14MG/24HR PATCH TRANSDERM SCH (07:00)
[2020-04-30] MEDS ORDERED: INSULIN ASPART (NovoLOG) 100 UNIT/ML VIAL SQ SCH ×3 (07:30→20:59)
--- NOTE | 2020-04-30 07:30 | XR ---
EXAMINATION TYPE: XR chest 1V DATE OF EXAM: 04/30/2020 HISTORY: Shortness of breath. COMPARISON: 04/29/2020 TECHNIQUE: Single view of the chest is submitted. FINDINGS: Demonstrated are scattered senescent parenchymal change. Patchy airspace infiltrates persist throughout both lung valdez. No significant interval change appre ciated. The heart is stable. Hilar and mediastinal structures are within normal limits. Degenerative changes are seen of the dorsal spine. IMPRESSION: 1. Patchy airspace infiltrates persist throughout both lung valdez. No significant interval change a ppreciated.
[2020-04-30] MEDS: ALBUTEROL HFA INHALER INHALATION SCH ×4 (07:55→19:32)
[2020-04-30] MEDS: SERTRALINE 100 MG TAB PO SCH (08:22)
[2020-04-30] MEDS: ISOSORBIDE MONONITRATE ER 30 MG TAB.ER.24H PO SCH (08:22)
[2020-04-30] MEDS: amLODIPine 5 MG TAB PO SCH (08:22)
[2020-04-30] MEDS: METOPROLOL TARTRATE 25 MG TAB PO SCH ×2 (08:22→20:34)
[2020-04-30] MEDS: ASPIRIN 81 MG PO SCH (08:22)
[2020-04-30] MEDS: CLOPIDOGREL 75 MG TAB PO SCH (08:23)
[2020-04-30] MEDS: CHOLECALCIFEROL 400 UNIT TAB PO SCH (08:23)
[2020-04-30] MEDS: FUROSEMIDE 10 MG/ML 4 ML VIAL IV SCH ×2 (08:23→16:10)
[2020-04-30] MEDS: ZINC SULFATE 220 MG CAP PO SCH (08:23)
[2020-04-30] MEDS: FOLIC ACID 1 MG TAB PO SCH (08:23)
[2020-04-30] MEDS: INSULIN DETEMIR (LEVEMIR) 100 UNIT/ML SYR SQ SCH (08:24)
[2020-04-30] MEDS: PANTOPRAZOLE 40 MG/10 ML VIAL IVP SCH (08:26)
[2020-04-30 11:41] LABS: Glucose,Whole Blood 179 mg/dL (75-99)
[2020-04-30] MEDS: NOREPINEPHRINE 4 MG in SODIUM CHLORIDE 0.9% 250 ML IV SCH (13:54)
--- NOTE | 2020-04-30 14:30 | P.PN ---
Subjective Progress Note Date: 04/30/20 Principal diagnosis: Acute hypoxic respiratory failure secondary to Covid 19 pneumonitis. This is a 65-year-old female with history of coronary artery disease, previous PCI of the first diagonal branch of LAD, PCI of mid to distal LAD in March of 2019, moderate to severe disease involving proximal RCA, and peripheral vessel occlusive disease and previous balloon angioplasty of left SFA. Multiple stents placed in her peripheral arteries including left common iliac and right external iliac patient is also known to have history of hypertension, diabetes, dyslipidemia, and tobacco dependence syndrome. Patient was recently in the hospital with covid 19 pneumonitis. She was discharged on April 21 to the [facility]. Patient received full treatment, her initial diagnosis was made on April 10. On 04/26/20, patient was brought into the ER with sudden onset of chest discomfort, she woke up at 2:30 AM in the morning experiencing severe chest pain. She was also complaining of shortness of breath, and felt that her heart was racing. Upon arrival she was on a nonrebreather, O2 saturation was 78%. EKG upon presentation showed deep T-wave inversion noted in the high lateral leads anteriorly with ST elevation noted inferiorly with underlying LVH. Chest x-ray clearly showed evidence of bilateral multifocal interstitial infiltrates. Remind you patient is still recovering from recent Covid 19 pneumonitis infection. Patient was bolused with heparin, received full aspirin and route, sublingual nitroglycerin was apparently given and a patch was applied. Patient underwent cardiac catheterization, and she had aspiration thrombectomy from the right coronary artery. Successful stenting of the ostial right coronary artery using a drug eluting stent, and she was sent to the ICU right after the procedure, patient was on a nonrebreather mask, extremely tachypneic upon arrival to the ICU, and I was made aware of this patient as soon as she arrived. I recommended immediate intubation and placement on mechanical ventilation. Patient is now on mechanical ventilation, she is on assist control rate of 20 volume is 450 FiO2 is 60% and I cut it down to 50% PEEP at 8. ABG this morning showed a pO2 of 78 pCO2 of 44 pH of 7.31. Patient is on propofol at 55 mcg/kg/m, IV fluids at KVO, patient was having intermittent episodes of hypotension, and I recommended emergent placement of right internal jugular central line, and an arterial line was also placed. Patient is definitely not ready for any weaning at this point. Chest x-ray is quite abnormal showing diffuse interstitial infiltrates, most likely this is related to her recent Covid 19 pneumonitis, although the possibility of underlying pulmonary edema is not entirely ruled out. Echocardiogram showed good LV function, there was inferior hypokinesis. Labs showed slight leukocytosis, hemoglobin is 10.6, d- dimer was 0.99. Troponin was as high as 12. Reevaluated today on 04/28/20, patient remains intubated and mechanically ventilated. She is presently on assist control rate of 20 tidal volume is 450 FiO2 is 50% PEEP is 8. ABG showed a pO2 of 82 pCO2 of 41 pH of 7.37. Patient is now off norepinephrine, she is status post stent of the RCA. Patient had Covid 19 diagnosis on 04/10. And her chest x-ray showed diffuse interstitial infiltrates. This was felt to be all related to Covid 19 pneumonitis, although the possibility of underlying interstitial edema in addition to the pneumonitis is not entirely ruled out. Patient was awakened today, she was placed on a pressure support of 10 and CPAP, and she was noted to do fairly well with good tidal volume good respiratory rate in the low 20s, hence I recommended extubation of the patient to a nasal cannula. CBC is relatively normal. Electrolytes are normal. Creatinine is improving down to 1.66. LDH is better today 1132 C-reactive protein is also better today. Reevaluated today on 04/29/20, patient was extubated yesterday, remains in the ICU, tolerated the extubation well, however she remains on 10 L high flow nasal cannula. Patient continues to have significantly abnormal chest x-ray, it is not clear based on the chest x-ray whether the findings are truly related to Covid 19 pneumonitis, or related to ongoing interstitial edema. I did recommend a BNP level, and I did recommend increasing the Lasix to 40 mg IV push every 8 hours. Clinically the patient is feeling better, breathing a lot easier. Considering the patient's BNP level came back over 14,000, I will go ahead and continue aggressive diuresis on this patient, I am strongly suspecting them the findings are findings of congestive heart failure/diastolic in nature since the echocardiogram showed good LV function. Patient was reevaluated today on , remains in the ICU, patient was extubated 2 days ago, remains on diuretics, I believe the findings on the chest x-ray are findings of interstitial edema in addition to underlying Covid 19 pneumonitis. But considering the patient had significantly elevated BNP level, I went ahead and increased her diuretics, cut down her IV fluid to KVO, patient improved significantly over the last 24 hours, she is now on 10 L high flow nasal cannula, and her O2 saturations 96%. IV fluid is at KVO. Patient is feeling better, breathing easier, her renal functioning is improving. Creatinine today is 1.36. Patient is off clevidipine which I started yesterday at night as her blood pressure was elevated. Patient is not requiring any pressors. And again her chest x-ray continues to show interstitial edema but significantly improved over the last couple of days. My plan is to continue to monitor the patient in the ICU for the next 24 hours, and possibly transfer to a cardiac floor tomorrow. CBC and basic metabolic profile today are better again her renal functioning is improving in spite of aggressive diuresis. Objective - Vital Signs Vital signs: Vital Signs Temp 98.0 F 04/30/20 12:00 Pulse 54 L 04/30/20 14:00 Resp 20 04/30/20 14:00 BP 116/56 04/30/20 08:30 Pulse Ox 91 L 04/30/20 14:00 Intake & Output 04/29/20 04/30/20 04/30/20 18:59 06:59 18:59 Intake Total 336 406.300 225.067 Output Total 1665 2305 1245 Balance -1329 -1898.700 -1019.933 Weight 109 kg Intake: IV 336 326 219 0.9NS 300 290 195 Laya flush 36 36 24 Intake, IV Titration 80.300 6.067 Amount Clevidipine Butyrate 25 30.300 6.067 mg In Empty Bag 1 bag @ 1 MG/HR 2 mls/hr IV .Q24H ERASMO Rx#:[id number] cefTRIAXone 1 gm In 50 Sodium Chloride 0.9% 50 ml @ 100 mls/hr IVPB Q24H ERASMO Rx#:[id number] Output: Urine 1665 2305 1245 Other: Voiding Method Indwelling Catheter Indwelling Catheter Indwelling Catheter ABP, PAP, CO, CI - Last Documented Arterial Blood Pressure 142/45 - Exam Physical exam revealed a 65-year-old female, on 10 L high flow cannula, in no distress. HEENT: PERRLA, EOMI, no icterus, no neck masses, no JVD, short obese neck. CHEST EXAMINATION: Symmetrical chest expansion, crackles at the bases bilaterally. CARDIAC: Normal S1, S2 with no gallops. No murmurs ABDOMEN: Morbidly obese, soft, nontender, no megaly, no rebound, no guarding. Extremities: No clubbing edema or cyanosis Neurological: Alert and oriented 3, no gross focal neurologic deficits. Skin: No rash or skin lesions. Psychiatric: Normal mood, normal affect and normal mental status examination Musculoskeletal: No joint swelling or deformity. Normal range of motion. - Labs CBC & Chem 7: 04/30/20 04:55 04/30/20 11:44 Labs: Abnormal Lab Results - Last 24 Hours (Table) 04/29/20 04/29/20 04/30/20 Range/Units 16:55 20:52 04:55 Hgb 10.8 L (11.4-16.0) gm/dL Hct 33.2 L (34.0-46.0) % RDW 16.7 H (11.5-15.5) % Neutrophils # 8.2 H (1.3-7.7) k/uL BUN (7-17) mg/dL Creatinine (0.52-1.04) mg/dL Glucose (74-99) mg/dL POC Glucose (mg/dL) 231 H 151 H (75-99) mg/dL AST (14-36) U/L ALT (4-34) U/L Total Protein (6.3-8.2) g/dL Albumin (3.5-5.0) g/dL 04/30/20 04/30/20 04/30/20 Range/Units 04:55 06:49 11:38 Hgb (11.4-16.0) gm/dL Hct (34.0-46.0) % RDW (11.5-15.5) % Neutrophils # (1.3-7.7) k/uL BUN 48 H (7-17) mg/dL Creatinine 1.36 H (0.52-1.04) mg/dL Glucose 140 H (74-99) mg/dL POC Glucose (mg/dL) 158 H 179 H (75-99) mg/dL AST 69 H (14-36) U/L ALT 103 H (4-34) U/L Total Protein 5.7 L (6.3-8.2) g/dL Albumin 2.8 L (3.5-5.0) g/dL Assessment and Plan Assessment: Impression: Acute hypoxic respiratory failure secondary to covid 19 pneumonitis. Acute diastolic congestive heart failure. Acute ST elevation myocardial infarction/inferior wall FL, status post stenting of RCA. Severe peripheral vessel occlusive disease and previous SFA atherectomy and balloon angioplasty Morbid obesity. History of CVA and multiple TIAs. Severe coronary artery disease. Multiple stents. History of GERD. History of gastric ulcer disease. History of cerebral aneurysm requiring coiling. History of nephrolithiasis. Type 2 diabetes. Tobacco dependence syndrome. Extubated on 04/28/20, tolerated extubation well. Recommendation: Continue aggressive diuresis, increase Lasix to 40 mg IV push every 8 hours. Titrate oxygen accordingly. Can possibly cut down her FiO2 to 5 L over 4 L nasal cannula today. Continue the Covid 19 cocktail. Continue GI and DVT prophylaxis.. Advance diet as tolerated We'll continue to monitor the patient in the ICU , mostly for the next 24 hours. And possibly transfer to a cardiac floor tomorrow. Time with Patient: Less than 30
--- NOTE | 2020-04-30 16:16 | P.PN ---
Subjective Patient chart was reviewed She seems to be resting comfortably in bed. She looks well Her heart rates are in the 50s and 60s 9 according to the nurse she has minimal symptoms from a cardiac standpoint Pulse rate in the 50s, respirations 20, blood pressure 142/45 mmHg Impression Acute myocardial infarction status post coronary stenting Currently patient has cold 19 and is in isolation Medications reviewed and she is on amlodipine aspirin atorvastatin Plavix Lasix IV Continue current medications post PR Objective - Vital Signs Vital signs: Vital Signs Temp 98.0 F 04/30/20 12:00 Pulse 54 L 04/30/20 16:00 Resp 23 04/30/20 16:00 BP 116/56 04/30/20 08:30 Pulse Ox 89 L 04/30/20 16:00 Intake & Output 04/29/20 04/30/20 04/30/20 18:59 06:59 18:59 Intake Total 336 406.300 225.067 Output Total 1665 2305 1245 Balance -1329 -1898.700 -1019.933 Weight 109 kg Intake: IV 336 326 219 0.9NS 300 290 195 Laya flush 36 36 24 Intake, IV Titration 80.300 6.067 Amount Clevidipine Butyrate 25 30.300 6.067 mg In Empty Bag 1 bag @ 1 MG/HR 2 mls/hr IV .Q24H [facility] Rx#:[id number] cefTRIAXone 1 gm In 50 Sodium Chloride 0.9% 50 ml @ 100 mls/hr IVPB Q24H [facility]MO Rx#:[id number] Output: Urine 1665 2305 1245 Other: Voiding Method Indwelling Catheter Indwelling Catheter Indwelling Catheter ABP, PAP, CO, CI - Last Documented Arterial Blood Pressure 171/68 - Labs CBC & Chem 7: 04/30/20 04:55 04/30/20 11:44 Labs: Abnormal Lab Results - Last 24 Hours (Table) 04/29/20 04/29/20 04/30/20 Range/Units 16:55 20:52 04:55 Hgb 10.8 L (11.4-16.0) gm/dL Hct 33.2 L (34.0-46.0) % RDW 16.7 H (11.5-15.5) % Neutrophils # 8.2 H (1.3-7.7) k/uL BUN (7-17) mg/dL Creatinine (0.52-1.04) mg/dL Glucose (74-99) mg/dL POC Glucose (mg/dL) 231 H 151 H (75-99) mg/dL AST (14-36) U/L ALT (4-34) U/L Total Protein (6.3-8.2) g/dL Albumin (3.5-5.0) g/dL 04/30/20 04/30/20 04/30/20 Range/Units 04:55 06:49 11:38 Hgb (11.4-16.0) gm/dL Hct (34.0-46.0) % RDW (11.5-15.5) % Neutrophils # (1.3-7.7) k/uL BUN 48 H (7-17) mg/dL Creatinine 1.36 H (0.52-1.04) mg/dL Glucose 140 H (74-99) mg/dL POC Glucose (mg/dL) 158 H 179 H (75-99) mg/dL AST 69 H (14-36) U/L ALT 103 H (4-34) U/L Total Protein 5.7 L (6.3-8.2) g/dL Albumin 2.8 L (3.5-5.0) g/dL
[2020-04-30] MEDS: HYDROcodone/APAP 5-325MG 1 EACH TAB PO PRN (16:42)
[2020-04-30 16:47] LABS: Glucose,Whole Blood 202 mg/dL (75-99)
[2020-04-30 20:17] LABS: Glucose,Whole Blood 196 mg/dL (75-99)
[2020-04-30] MEDS: ASCORBIC ACID 500 MG TAB PO SCH (20:34)
[2020-04-30] MEDS: ATORVASTATIN 40 MG TAB PO SCH (20:34)
--- NOTE | 2020-04-30 22:12 | P.PN ---
Subjective Progress Note Date: 04/27/20 Principal diagnosis: Acute ST elevated UT/inferior wall UT with ST elevation in the leads II, III and aVF Recent COVID-19 pneumonia Patient is a 65-year-old female with a known history of coronary artery disease with a stent placement, COPD, history of CVA/TIA, diabetes type 2, hyperlipidemia, history of gastric ulcers, history of [employer] aneurysm with bleeding requiring coiling, chronic back pain with history of epidural injections, nephrolithiasis and currently everyday smoker, anxiety/depression and other multiple medical problems, peripheral vascular disease with left SFA atherectomy and balloon angioplasty presents to ER with the complaints of chest discomfort mainly retrosternal region and woke her up from sleep at around 2:30 AM which she felt like a panic attack. Chest pain is associate with shortness of breath and a racing of heart. Radiating to the neck. On arrival patient was saturating at 78% and was placed on 100% nonrebreather. Patient was recently discharged from the hospital on April 21, 2020. Patient was treated for COVID-19 pneumonia and was discharged to [facility]. In the ER patient had EKG which showed ST elevations in the leads II, III and aVF. Patient was immediately taken to [facility]. Laboratory data showed WBC 17.4, hemoglobin 10.7 and platelets 208 Neutrophils 15.1 BUN 31 and creatinine 1.52 Troponin V 0.39, 12.7 AST 81 and ALT 121 Patient has been afebrile but requiring 100% nonrebreather. 04/26/2020 patient was intubated after raising MICU. Patient had cardiac catheterization and found to have total occlusion of the proximal RCA and successful stenting of RCA was performed. Patient had patent stent in the LAD. Normal left circumflex artery. Continue with dual antiplatelet therapy. Chest x-ray showed nasogastric tube in the esophagus there is moderate pulmonary edema unchanged compared to exam 4 hours ago. Laboratory data reviewed. Current medications reviewed. Objective - Vital Signs Vital signs: Vital Signs Temp 98.2 F 04/27/20 12:00 Pulse 52 L 04/27/20 14:00 Resp 26 H 04/27/20 14:00 BP 121/72 04/27/20 01:30 Pulse Ox 93 L 04/27/20 14:00 Intake & Output 04/26/20 04/27/20 04/27/20 18:59 06:59 18:59 Intake Total 305 868.151 622.552 Output Total 125 930 750 Balance 180 -61.849 -127.448 Weight 154.221 kg 115.6 kg Intake: IV 230 Intake, IV Titration 75 808.151 562.552 Amount Norepinephrine 4 mg In 95.383 87.552 Sodium Chloride 0.9% 250 ml @ 0.02 MCG/KG/MIN 11. 752 mls/hr IV .[id number] [facility] Rx#:[id number] Sodium Chloride 0.9% 1, 75 275 175 000 ml @ 25 mls/hr IV . Q24H [facility] Rx#:[id number] cefTRIAXone 1 gm In 50 Sodium Chloride 0.9% 50 ml @ 100 mls/hr IVPB Q24H [facility] Rx#:[id number] propofoL 1,000 mg In 387.768 300.000 Empty Bag 1 bag @ Titrate IV .Q0M [facility] Rx#: [id number] Other 60 60 Output: Urine 125 930 750 Other: Voiding Method Indwelling Catheter ABP, PAP, CO, CI - Last Documented Arterial Blood Pressure 140/61 - Exam PHYSICAL EXAMINATION: Patient is Currently intubated and sedated.On mechanical ventilator. HEENT: Normocephalic. Neck is supple. Pupils reactive. Nostrils clear. Oral ca vity is moist. Ears reveal no drainage. Neck reveals no JVD, carotid bruits, or thyromegaly. CHEST EXAMINATION: Trachea is central. Symmetrical expansion. Bilateral coarse breath sounds. No wheezing noted. Nonlabored breathing. CARDIAC: Normal S1, S2 with no gallops. No murmurs ABDOMEN: Soft. Bowel sounds normal. No organomegaly. No abdominal bruits. Extremities: reveal no edema. No clubbing or cyanosis Neurologically Patient is mechanical ventilator. No focal deficits noted Skin: No rash or skin lesions. Psychiatric: Could not be assessed. Musculoskeletal: No joint swelling or deformity. - Labs CBC & Chem 7: 04/30/20 04:55 04/30/20 11:44 Labs: Abnormal Lab Results - Last 24 Hours (Table) 04/26/20 04/26/20 04/26/20 Range/Units 14:36 14:36 14:36 WBC 17.4 H (3.8-10.6) k/uL Hgb 10.7 L (11.4-16.0) gm/dL Hct 33.5 L (34.0-46.0) % MCHC (31.0-37.0) g/dL RDW 16.4 H (11.5-15.5) % Neutrophils # 15.1 H (1.3-7.7) k/uL Lymphocytes # (1.0-4.8) k/uL APTT 21.2 L (22.0-30.0) sec Fibrinogen (200-500) mg/dL D-Dimer (<0.60) mg/L FEU ABG pH (7.35-7.45) ABG pO2 (83-108) mmHg ABG O2 Saturation (94-97) % Sodium (137-145) mmol/L BUN (7-17) mg/dL Creatinine (0.52-1.04) mg/dL Glucose (74-99) mg/dL POC Glucose (mg/dL) (75-99) mg/dL Calcium (8.4-10.2) mg/dL AST (14-36) U/L ALT (4-34) U/L Lactate Dehydrogenase (313-618) U/L Troponin I 5.390 H* (0.000-0.034) ng/mL C-Reactive Protein (<10.0) mg/L Total Protein (6.3-8.2) g/dL Albumin (3.5-5.0) g/dL HDL Cholesterol (40-60) mg/dL Urine Appearance (Clear) Urine Protein (Negative) Urine Blood (Negative) Ur Leukocyte Esterase (Negative) Urine RBC (0-5) /hpf Urine WBC (0-5) /hpf Amorphous Sediment (None) /hpf Urine Bacteria (None) /hpf Urine Mucus (None) /hpf Urine Yeast (Budding) (None) /hpf 04/26/20 04/26/20 04/26/20 Range/Units 17:53 18:51 18:55 WBC (3.8-10.6) k/uL Hgb (11.4-16.0) gm/dL Hct (34.0-46.0) % MCHC (31.0-37.0) g/dL RDW (11.5-15.5) % Neutrophils # (1.3-7.7) k/uL Lymphocytes # (1.0-4.8) k/uL APTT (22.0-30.0) sec Fibrinogen (200-500) mg/dL D-Dimer (<0.60) mg/L FEU ABG pH (7.35-7.45) ABG pO2 (83-108) mmHg ABG O2 Saturation (94-97) % Sodium (137-145) mmol/L BUN (7-17) mg/dL Creatinine (0.52-1.04) mg/dL Glucose (74-99) mg/dL POC Glucose (mg/dL) 164 H 148 H (75-99) mg/dL Calcium (8.4-10.2) mg/dL AST (14-36) U/L ALT (4-34) U/L Lactate Dehydrogenase (313-618) U/L Troponin I 12.700 H* (0.000-0.034) ng/mL C-Reactive Protein (<10.0) mg/L Total Protein (6.3-8.2) g/dL Albumin (3.5-5.0) g/dL HDL Cholesterol (40-60) mg/dL Urine Appearance (Clear) Urine Protein (Negative) Urine Blood (Negative) Ur Leukocyte Esterase (Negative) Urine RBC (0-5) /hpf Urine WBC (0-5) /hpf Amorphous Sediment (None) /hpf Urine Bacteria (None) /hpf Urine Mucus (None) /hpf Urine Yeast (Budding) (None) /hpf 04/26/20 04/26/20 04/26/20 Range/Units 20:09 22:40 22:45 WBC (3.8-10.6) k/uL Hgb (11.4-16.0) gm/dL Hct (34.0-46.0) % MCHC (31.0-37.0) g/dL RDW (11.5-15.5) % Neutrophils # (1.3-7.7) k/uL Lymphocytes # (1.0-4.8) k/uL APTT (22.0-30.0) sec Fibrinogen (200-500) mg/dL D-Dimer (<0.60) mg/L FEU ABG pH 7.31 L (7.35-7.45) ABG pO2 129 H (83-108) mmHg ABG O2 Saturation 97.6 H (94-97) % Sodium (137-145) mmol/L BUN (7-17) mg/dL Creatinine (0.52-1.04) mg/dL Glucose (74-99) mg/dL POC Glucose (mg/dL) (75-99) mg/dL Calcium (8.4-10.2) mg/dL AST (14-36) U/L ALT (4-34) U/L Lactate Dehydrogenase (313-618) U/L Troponin I 12.000 H* (0.000-0.034) ng/mL C-Reactive Protein (<10.0) mg/L Total Protein (6.3-8.2) g/dL Albumin (3.5-5.0) g/dL HDL Cholesterol (40-60) mg/dL Urine Appearance Cloudy H (Clear) Urine Protein Trace H (Negative) Urine Blood Small H (Negative) Ur Leukocyte Esterase Large H (Negative) Urine RBC 42 H (0-5) /hpf Urine WBC 17 H (0-5) /hpf Amorphous Sediment Rare H (None) /hpf Urine Bacteria Many H (None) /hpf Urine Mucus Rare H (None) /hpf Urine Yeast (Budding) Occasional H (None) /hpf 04/26/20 04/27/20 04/27/20 Range/Units 23:47 04:00 04:00 WBC 15.4 H (3.8-10.6) k/uL Hgb 10.6 L (11.4-16.0) gm/dL Hct (34.0-46.0) % MCHC 30.6 L (31.0-37.0) g/dL RDW 16.4 H (11.5-15.5) % Neutrophils # 14.0 H (1.3-7.7) k/uL Lymphocytes # 0.8 L (1.0-4.8) k/uL APTT (22.0-30.0) sec Fibrinogen 618 H (200-500) mg/dL D-Dimer 0.99 H (<0.60) mg/L FEU ABG pH (7.35-7.45) ABG pO2 (83-108) mmHg ABG O2 Saturation (94-97) % Sodium (137-145) mmol/L BUN (7-17) mg/dL Creatinine (0.52-1.04) mg/dL Glucose (74-99) mg/dL POC Glucose (mg/dL) 159 H (75-99) mg/dL Calcium (8.4-10.2) mg/dL AST (14-36) U/L ALT (4-34) U/L Lactate Dehydrogenase (313-618) U/L Troponin I (0.000-0.034) ng/mL C-Reactive Protein (<10.0) mg/L Total Protein (6.3-8.2) g/dL Albumin (3.5-5.0) g/dL HDL Cholesterol (40-60) mg/dL Urine Appearance (Clear) Urine Protein (Negative) Urine Blood (Negative) Ur Leukocyte Esterase (Negative) Urine RBC (0-5) /hpf Urine WBC (0-5) /hpf Amorphous Sediment (None) /hpf Urine Bacteria (None) /hpf Urine Mucus (None) /hpf Urine Yeast (Budding) (None) /hpf 04/27/20 04/27/20 04/27/20 Range/Units 04:00 04:58 05:00 WBC (3.8-10.6) k/uL Hgb (11.4-16.0) gm/dL Hct (34.0-46.0) % MCHC (31.0-37.0) g/dL RDW (11.5-15.5) % Neutrophils # (1.3-7.7) k/uL Lymphocytes # (1.0-4.8) k/uL APTT (22.0-30.0) sec Fibrinogen (200-500) mg/dL D-Dimer (<0.60) mg/L FEU ABG pH (7.35-7.45) ABG pO2 (83-108) mmHg ABG O2 Saturation (94-97) % Sodium 136 L (137-145) mmol/L BUN 30 H (7-17) mg/dL Creatinine 1.72 H (0.52-1.04) mg/dL Glucose 181 H (74-99) mg/dL POC Glucose (mg/dL) 189 H (75-99) mg/dL Calcium 7.8 L (8.4-10.2) mg/dL AST 52 H (14-36) U/L ALT 107 H (4-34) U/L Lactate Dehydrogenase 1469 H (313-618) U/L Troponin I (0.000-0.034) ng/mL C-Reactive Protein 189.5 H (<10.0) mg/L Total Protein 5.5 L (6.3-8.2) g/dL Albumin 2.7 L (3.5-5.0) g/dL HDL Cholesterol 18 L (40-60) mg/dL Urine Appearance (Clear) Urine Protein (Negative) Urine Blood (Negative) Ur Leukocyte Esterase (Negative) Urine RBC (0-5) /hpf Urine WBC (0-5) /hpf Amorphous Sediment (None) /hpf Urine Bacteria (None) /hpf Urine Mucus (None) /hpf Urine Yeast (Budding) (None) /hpf 04/27/20 04/27/20 Range/Units 05:25 13:09 WBC (3.8-10.6) k/uL Hgb (11.4-16.0) gm/dL Hct (34.0-46.0) % MCHC (31.0-37.0) g/dL RDW (11.5-15.5) % Neutrophils # (1.3-7.7) k/uL Lymphocytes # (1.0-4.8) k/uL APTT (22.0-30.0) sec Fibrinogen (200-500) mg/dL D-Dimer (<0.60) mg/L FEU ABG pH 7.31 L (7.35-7.45) ABG pO2 78 L (83-108) mmHg ABG O2 Saturation 93.2 L (94-97) % Sodium (137-145) mmol/L BUN (7-17) mg/dL Creatinine (0.52-1.04) mg/dL Glucose (74-99) mg/dL POC Glucose (mg/dL) 174 H (75-99) mg/dL Calcium (8.4-10.2) mg/dL AST (14-36) U/L ALT (4-34) U/L Lactate Dehydrogenase (313-618) U/L Troponin I (0.000-0.034) ng/mL C-Reactive Protein (<10.0) mg/L Total Protein (6.3-8.2) g/dL Albumin (3.5-5.0) g/dL HDL Cholesterol (40-60) mg/dL Urine Appearance (Clear) Urine Protein (Negative) Urine Blood (Negative) Ur Leukocyte Esterase (Negative) Urine RBC (0-5) /hpf Urine WBC (0-5) /hpf Amorphous Sediment (None) /hpf Urine Bacteria (None) /hpf Urine Mucus (None) /hpf Urine Yeast (Budding) (None) /hpf Microbiology - Last 24 Hours (Table) 04/26/20 21:25 Sputum Culture - Preliminary Sputum 04/26/20 22:45 Urine Culture - Preliminary Urine,Voided Assessment and Plan Assessment: Acute hypoxic respiratory failure secondary to covid [address] elevated UT/inferior wall UT with ST elevation in the leads II, III and aVF. Status post stenting of RCA. Recent COVID-19 pneumonia and was discharged to [facility]. Coronary artery disease with history of stent placement in 2019 to LAD Severe peripheral vascular disease with history of SFA atherectomy and balloon angioplasty. Hypertension History of CVA and multiple TIAs History of UT Hyperlipidemia GERD History of gastric ulcers History of cerebral aneurysm requiring coiling. Chronic back pain history of multiple epidural injections Nephrolithiasis Diabetes type 2 [id number] Ongoing nicotine addiction DVT prophylaxis. Patient is on heparin drip. Plan: on mechanical ventilator Patient will be continued on telemetry monitoring. s/p stent placement. Continue with insulin sliding scale and pain management. Continue with breathing treatments and aspirin, Plavix. Pulmonary and cardiology is on board. Prognosis guarded at this time. Time with Patient: Greater than 30
--- NOTE | 2020-04-30 22:14 | P.PN ---
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 Chest pain is associate with shortness of breath and a racing of heart. Radiating to the neck. On arrival patient was saturating at 78% and was placed on 100% nonrebreather. Patient was recently discharged from the hospital on April 21, 2020. Patient was treated for COVID-19 pneumonia and was discharged to [facility]. In the ER patient had EKG which showed ST elevations in the leads II, III and aVF. Patient was immediately taken to [facility]. Laboratory data showed WBC 17.4, hemoglobin 10.7 and platelets 208 Neutrophils 15.1 BUN 31 and creatinine 1.52 Troponin V 0.39, 12.7 AST 81 and ALT 121 Patient has been afebrile but requiring 100% nonrebreather. 04/26/2020 patient was intubated after raising MICU. Patient had cardiac catheterization and found to have total occlusion of the proximal RCA and successful stenting of RCA was performed. Patient had patent stent in the LAD. Normal left circumflex artery. Continue with dual antiplatelet therapy. Chest x-ray showed nasogastric tube in the esophagus there is moderate pulmonary edema unchanged compared to exam 4 hours ago. Laboratory data reviewed. 04/28/2020 Patient is currently intubated and on mechanical ventilator. Patient is off Levophed drip. Chest x-ray showed diffuse interstitial infiltrates. Likely due to Covid pneumonitis. Patient is being extubated. Inflammatory markers are improving. Creatinine level improved to 1.66 today. Current medications reviewed. Objective - Vital Signs Vital signs: Vital Signs Temp 98.8 F 04/28/20 20:00 Pulse 53 L 04/28/20 20:00 Resp 34 H 04/28/20 20:00 BP 121/72 04/27/20 01:30 Pulse Ox 95 04/28/20 20:00 Intake & Output 04/28/20 04/28/20 04/29/20 06:59 18:59 06:59 Intake Total 519.792 521.268 25 Output Total 1170 1935 135 Balance -650.208 -1413.732 -110 Weight 116.2 kg 116.2 kg Intake: IV 275 25 0.9NS 275 25 Intake, IV Titration 519.792 196.268 Amount Norepinephrine 4 mg In 96.268 Sodium Chloride 0.9% 250 ml @ 0.02 MCG/KG/MIN 11. 752 mls/hr IV .[id number] [facility] Rx#:[id number] Sodium Chloride 0.9% 1, 225 000 ml @ 25 mls/hr IV . Q24H [facility] Rx#:[id number] propofoL 1,000 mg In 294.792 100.00 Empty Bag 1 bag @ Titrate IV .Q0M [facility] Rx#: [id number] Oral 50 Output: Urine 1170 1935 135 Other: Voiding Method Indwelling Catheter Indwelling Catheter ABP, PAP, CO, CI - Last Documented Arterial Blood Pressure 150/49 - Exam PHYSICAL EXAMINATION: Patient is Currently intubated and but awake .On mechanical ventilator. HEENT: Normocephalic. Neck is supple. Pupils reactive. Nostrils clear. Oral cavity is moist. Ears reveal no drainage. Neck reveals no JVD, carotid bruits, or thyromegaly. CHEST EXAMINATION: Trachea is central. Symmetrical expansion. Bilateral coarse breath sounds. No wheezing noted. Nonlabored breathing. CARDIAC: Normal S1, S2 with no gallops. No murmurs ABDOMEN: Soft. Bowel sounds normal. No organomegaly. No abdominal bruits. Extremities: reveal no edema. No clubbing or cyanosis Neurologically Patient is mechanical ventilator. No focal deficits noted Skin: No rash or skin lesions. Psychiatric: Could not be assessed. Musculoskeletal: No joint swelling or deformity. - Labs CBC & Chem 7: 04/30/20 04:55 04/30/20 11:44 Labs: Abnormal Lab Results - Last 24 Hours (Table) 04/28/20 04/28/20 04/28/20 Range/Units 00:33 04:53 05:30 WBC 12.5 H (3.8-10.6) k/uL Hgb 10.5 L (11.4-16.0) gm/dL Hct 32.9 L (34.0-46.0) % RDW 16.5 H (11.5-15.5) % Neutrophils # 10.3 H (1.3-7.7) k/uL ABG pO2 82 L (83-108) mmHg ABG Total CO2 25 H (19-24) mmol/L BUN (7-17) mg/dL Creatinine (0.52-1.04) mg/dL Glucose (74-99) mg/dL POC Glucose (mg/dL) 166 H (75-99) mg/dL Calcium (8.4-10.2) mg/dL ALT (4-34) U/L Lactate Dehydrogenase (313-618) U/L C-Reactive Protein (<10.0) mg/L Total Protein (6.3-8.2) g/dL Albumin (3.5-5.0) g/dL 04/28/20 04/28/20 04/28/20 Range/Units 05:30 11:32 18:36 WBC (3.8-10.6) k/uL Hgb (11.4-16.0) gm/dL Hct (34.0-46.0) % RDW (11.5-15.5) % Neutrophils # (1.3-7.7) k/uL ABG pO2 (83-108) mmHg ABG Total CO2 (19-24) mmol/L BUN 35 H (7-17) mg/dL Creatinine 1.66 H (0.52-1.04) mg/dL Glucose 141 H (74-99) mg/dL POC Glucose (mg/dL) 153 H 126 H (75-99) mg/dL Calcium 8.2 L (8.4-10.2) mg/dL ALT 80 H (4-34) U/L Lactate Dehydrogenase 1132 H (313-618) U/L C-Reactive Protein 136.6 H (<10.0) mg/L Total Protein 5.4 L (6.3-8.2) g/dL Albumin 2.6 L (3.5-5.0) g/dL Microbiology - Last 24 Hours (Table) 04/26/20 22:45 Urine Culture - Preliminary Urine,Voided Group D Enterococcus 04/26/20 21:25 Gram Stain - Preliminary Sputum Sputum Culture - Preliminary Assessment and Plan Assessment: Acute hypoxic respiratory failure secondary to covid [address] elevated VT/inferior wall VT with ST elevation in the leads II, III and aVF. Status post stenting of RCA. Recent COVID-19 pneumonia and was discharged to [facility]. Coronary artery disease with history of stent placement in 2019 to LAD Severe peripheral vascular disease with history of SFA atherectomy and balloon angioplasty. Hypertension History of CVA and multiple TIAs History of VT Hyperlipidemia GERD History of gastric ulcers History of cerebral aneurysm requiring coiling. Chronic back pain history of multiple epidural injections Nephrolithiasis Diabetes type 2 [id number] Ongoing nicotine addiction DVT prophylaxis. Patient is on heparin drip. Plan: on mechanical ventilator Patient will be continued on telemetry monitoring. s/p stent placement. Continue with insulin sliding scale and pain management. Continue with breathing treatments and aspirin, Plavix. Pulmonary and cardiology is on board. Prognosis guarded at this time. Time with Patient: Greater than 30
--- NOTE | 2020-04-30 22:17 | P.PN ---
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 Chest pain is associate with shortness of breath and a racing of heart. Radiating to the neck. On arrival patient was saturating at 78% and was placed on 100% nonrebreather. Patient was recently discharged from the hospital on April 21, 2020. Patient was treated for COVID-19 pneumonia and was discharged to [facility]. In the ER patient had EKG which showed ST elevations in the leads II, III and aVF. Patient was immediately taken to [facility]. Laboratory data showed WBC 17.4, hemoglobin 10.7 and platelets 208 Neutrophils 15.1 BUN 31 and creatinine 1.52 Troponin V 0.39, 12.7 AST 81 and ALT 121 Patient has been afebrile but requiring 100% nonrebreather. 04/27/2020 patient was intubated after raising MICU. Patient had cardiac catheterization and found to have total occlusion of the proximal RCA and successful stenting of RCA was performed. Patient had patent stent in the LAD. Normal left circumflex artery. Continue with dual antiplatelet therapy. Chest x-ray showed nasogastric tube in the esophagus there is moderate pulmonary edema unchanged compared to exam 4 hours ago. Laboratory data reviewed. 04/28/2020 Patient is currently intubated and on mechanical ventilator. Patient is off Levophed drip. Chest x-ray showed diffuse interstitial infiltrates. Likely due to Covid pneumonitis. Patient is being extubated. Inflammatory markers are improving. Creatinine level improved to 1.66 today. 04/29/2020 Patient is currently in the MICU. Saturating well on high flow oxygen at 10 L. Chest x-ray showed stable diffuse bilateral airspace disease correlate for pneumonia. Patient is being continued antibiotics in the form of ceftriaxone. Continued on started on IV steroids. Off pressor support. Continued on dual antiplatelet therapy and also on IV steroids. Pulmonary and cardiology is on board. Laboratory data showed hemoglobin 9.9, BUN 41 and creatinine 1.38 LDH 1010, CRP 53.6 and proBNP 69561. Current medications reviewed. Objective - Vital Signs Vital signs: Vital Signs Temp 97.9 F 04/29/20 16:00 Pulse 58 L 04/29/20 17:00 Resp 24 04/29/20 17:00 BP 121/72 04/27/20 01:30 Pulse Ox 93 L 04/29/20 17:00 Intake & Output 04/28/20 04/29/20 04/29/20 18:59 06:59 18:59 Intake Total 521.268 373 280 Output Total 1934 1848 1465 Balance -1413.732 -1715 -1185 Weight 116.2 kg 112.3 kg Intake: IV 275 323 280 0.9NS 275 290 250 Laya flush 33 30 Intake, IV Titration 196.268 50 Amount Norepinephrine 4 mg In 96.268 Sodium Chloride 0.9% 250 ml @ 0.02 MCG/KG/MIN 11. 752 mls/hr IV .[id number] [facility] Rx#:[id number] cefTRIAXone 1 gm In 50 Sodium Chloride 0.9% 50 ml @ 100 mls/hr IVPB Q24H [facility] Rx#:[id number] propofoL 1,000 mg In 100.00 Empty Bag 1 bag @ Titrate IV .Q0M [facility] Rx#: [id number] Oral 50 Output: Urine 1934 1848 1465 Other: Voiding Method Indwelling Catheter Indwelling Catheter Indwelling Catheter ABP, PAP, CO, CI - Last Documented Arterial Blood Pressure 161/64 - Exam PHYSICAL EXAMINATION: Patient is lying in the bed comfortably, no acute distress, awake alert and oriented.. HEENT: Normocephalic. Neck is supple. Pupils reactive. Nostrils clear. Oral cavity is moist. Ears reveal no drainage. Neck reveals no JVD, carotid bruits, or thyromegaly. CHEST EXAMINATION: Trachea is central. Symmetrical expansion. Bibasilar diminished air entry and coarse breath sounds.. CARDIAC: Normal S1, S2 with no gallops. No murmurs ABDOMEN: Soft. Bowel sounds normal. No organomegaly. No abdominal bruits. Extremities: reveal no edema. No clubbing or cyanosis Neurologically awake, alert, oriented x3 with well-coordinated movements. No focal deficits noted Skin: No rash or skin lesions. Psychiatric: Coperative. Nonsuicidal Musculoskeletal: No joint swelling or deformity. Normal range of motion. - Labs CBC & Chem 7: 04/30/20 04:55 04/30/20 11:44 Labs: Abnormal Lab Results - Last 24 Hours (Table) 04/28/20 04/29/20 04/29/20 Range/Units 18:36 00:10 05:00 RBC (3.80-5.40) m/uL Hgb (11.4-16.0) gm/dL Hct (34.0-46.0) % RDW (11.5-15.5) % BUN 41 H (7-17) mg/dL Creatinine 1.38 H (0.52-1.04) mg/dL POC Glucose (mg/dL) 126 H 139 H (75-99) mg/dL Calcium 8.2 L (8.4-10.2) mg/dL AST 52 H (14-36) U/L ALT 86 H (4-34) U/L Lactate Dehydrogenase 1010 H (313-618) U/L Creatine Kinase 25 L (30-135) U/L C-Reactive Protein 53.6 H (<10.0) mg/L Total Protein 5.5 L (6.3-8.2) g/dL Albumin 2.6 L (3.5-5.0) g/dL 04/29/20 04/29/20 04/29/20 Range/Units 05:00 12:18 16:55 RBC 3.77 L (3.80-5.40) m/uL Hgb 9.9 L (11.4-16.0) gm/dL Hct 30.8 L (34.0-46.0) % RDW 17.2 H (11.5-15.5) % BUN (7-17) mg/dL Creatinine (0.52-1.04) mg/dL POC Glucose (mg/dL) 126 H 231 H (75-99) mg/dL Calcium (8.4-10.2) mg/dL AST (14-36) U/L ALT (4-34) U/L Lactate Dehydrogenase (313-618) U/L Creatine Kinase (30-135) U/L C-Reactive Protein (<10.0) mg/L Total Protein (6.3-8.2) g/dL Albumin (3.5-5.0) g/dL Microbiology - Last 24 Hours (Table) 04/26/20 21:25 Gram Stain - Final Sputum Sputum Culture - Final 04/26/20 22:45 Urine Culture - Final Urine,Voided Enterococcus faecalis Assessment and Plan Assessment: Acute hypoxic respiratory failure secondary to covid [address] elevated HI/inferior wall HI with ST elevation in the leads II, III and aVF. Status post stenting of RCA. Recent COVID-19 pneumonia and was discharged to [facility]. Coronary artery disease with history of stent placement in 2019 to LAD Severe peripheral vascular disease with history of SFA atherectomy and balloon angioplasty. Hypertension History of CVA and multiple TIAs History of HI Hyperlipidemia GERD History of gastric ulcers History of cerebral aneurysm requiring coiling. Chronic back pain history of multiple epidural injections Nephrolithiasis Diabetes type 2 [id number] Ongoing nicotine addiction DVT prophylaxis. Patient is on heparin drip. Plan: Patient is on high flow oxygen.Patient will be continued on telemetry monitoring. s/p stent placement. Continue with dual antiplatelet therapy. Continue with IV steroids and antibiotics in the form of ceftriaxone. Started on IV Lasix. Continue with insulin sliding scale and pain management. Continue with breathing treatments and aspirin, Plavix. Pulmonary and cardiology is on board. Prognosis guarded at this time. Time with Patient: Greater than 30
--- NOTE | 2020-04-30 22:20 | P.PN ---
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 Chest pain is associate with shortness of breath and a racing of heart. Radiating to the neck. On arrival patient was saturating at 78% and was placed on 100% nonrebreather. Patient was recently discharged from the hospital on April 21, 2020. Patient was treated for COVID-19 pneumonia and was discharged to [facility]. In the ER patient had EKG which showed ST elevations in the leads II, III and aVF. Patient was immediately taken to [facility]. Laboratory data showed WBC 17.4, hemoglobin 10.7 and platelets 208 Neutrophils 15.1 BUN 31 and creatinine 1.52 Troponin V 0.39, 12.7 AST 81 and ALT 121 Patient has been afebrile but requiring 100% nonrebreather. 04/27/2020 patient was intubated after raising MICU. Patient had cardiac catheterization and found to have total occlusion of the proximal RCA and successful stenting of RCA was performed. Patient had patent stent in the LAD. Normal left circumflex artery. Continue with dual antiplatelet therapy. Chest x-ray showed nasogastric tube in the esophagus there is moderate pulmonary edema unchanged compared to exam 4 hours ago. Laboratory data reviewed. 04/28/2020 Patient is currently intubated and on mechanical ventilator. Patient is off Levophed drip. Chest x-ray showed diffuse interstitial infiltrates. Likely due to Covid pneumonitis. Patient is being extubated. Inflammatory markers are improving. Creatinine level improved to 1.66 today. 04/29/2020 Patient is currently in the MICU. Saturating well on high flow oxygen at 10 L. Chest x-ray showed stable diffuse bilateral airspace disease correlate for pneumonia. Patient is being continued antibiotics in the form of ceftriaxone. Continued on started on IV steroids. Off pressor support. Continued on dual antiplatelet therapy and also on IV steroids. Pulmonary and cardiology is on board. Laboratory data showed hemoglobin 9.9, BUN 41 and creatinine 1.38 LDH 1010, CRP 53.6 and proBNP 02912. 04/30/2020 Patient is currently in MICU. Awake and alert. Patient is currently on high flow oxygen at 10L to 11 L. Patient is also being continued on IV steroids. Chest x-ray showed patchy airspace infiltrates persistent throughout both lung valdez. No significant interval change appreciated. Laboratory data showed hemoglobin 10.8, neutrophils 8.2, BUN 48 and creatinine 1.36 Blood sugar is fairly controlled. Patient is being continued on steroids IV steroids and IV Lasix and insulin regimen. Cardiology and pulmonary is on board. Current medications reviewed. Objective - Vital Signs Vital signs: Vital Signs Temp 98.0 F 04/30/20 12:00 Pulse 54 L 04/30/20 14:00 Resp 20 04/30/20 14:00 BP 116/56 04/30/20 08:30 Pulse Ox 91 L 04/30/20 14:00 Intake & Output 04/29/20 04/30/20 04/30/20 18:59 06:59 18:59 Intake Total 336 406.300 225.067 Output Total 1665 2305 1245 Balance -1329 -1898.700 -1019.933 Weight 109 kg Intake: IV 336 326 219 0.9NS 300 290 195 Laya flush 36 36 24 Intake, IV Titration 80.300 6.067 Amount Clevidipine Butyrate 25 30.300 6.067 mg In Empty Bag 1 bag @ 1 MG/HR 2 mls/hr IV .Q24H [facility] Rx#:[id number] cefTRIAXone 1 gm In 50 Sodium Chloride 0.9% 50 ml @ 100 mls/hr IVPB Q24H ER[facility] Rx#:[id number] Output: Urine 1665 2305 1245 Other: Voiding Method Indwelling Catheter Indwelling Catheter Indwelling Catheter ABP, PAP, CO, CI - Last Documented Arterial Blood Pressure 142/45 - Exam PHYSICAL EXAMINATION: Patient is lying in the bed comfortably, no acute distress, awake alert and or iented.. HEENT: Normocephalic. Neck is supple. Pupils reactive. Nostrils clear. Oral cavity is moist. Ears reveal no drainage. Neck reveals no JVD, carotid bruits, or thyromegaly. CHEST EXAMINATION: Trachea is central. Symmetrical expansion. Bibasilar diminished air entry and coarse breath sounds.. CARDIAC: Normal S1, S2 with no gallops. No murmurs ABDOMEN: Soft. Bowel sounds normal. No organomegaly. No abdominal bruits. Extremities: reveal no edema. No clubbing or cyanosis Neurologically awake, alert, oriented x3 with well-coordinated movements. No focal deficits noted Skin: No rash or skin lesions. Psychiatric: Coperative. Nonsuicidal Musculoskeletal: No joint swelling or deformity. Normal range of motion. - Labs CBC & Chem 7: 04/30/20 04:55 04/30/20 11:44 Labs: Abnormal Lab Results - Last 24 Hours (Table) 04/29/20 04/29/20 04/30/20 Range/Units 16:55 20:52 04:55 Hgb 10.8 L (11.4-16.0) gm/dL Hct 33.2 L (34.0-46.0) % RDW 16.7 H (11.5-15.5) % Neutrophils # 8.2 H (1.3-7.7) k/uL BUN (7-17) mg/dL Creatinine (0.52-1.04) mg/dL Glucose (74-99) mg/dL POC Glucose (mg/dL) 231 H 151 H (75-99) mg/dL AST (14-36) U/L ALT (4-34) U/L Total Protein (6.3-8.2) g/dL Albumin (3.5-5.0) g/dL 04/30/20 04/30/20 04/30/20 Range/Units 04:55 06:49 11:38 Hgb (11.4-16.0) gm/dL Hct (34.0-46.0) % RDW (11.5-15.5) % Neutrophils # (1.3-7.7) k/uL BUN 48 H (7-17) mg/dL Creatinine 1.36 H (0.52-1.04) mg/dL Glucose 140 H (74-99) mg/dL POC Glucose (mg/dL) 158 H 179 H (75-99) mg/dL AST 69 H (14-36) U/L ALT 103 H (4-34) U/L Total Protein 5.7 L (6.3-8.2) g/dL Albumin 2.8 L (3.5-5.0) g/dL Assessment and Plan Assessment: Acute hypoxic respiratory failure secondary to covid 19 pneumonitis.Currently high flow oxygen. Acute ST elevated AK/inferior wall AK with ST elevation in the leads II, III and aVF. Status post stenting of RCA. Recent COVID-19 pneumonia and was discharged to [facility]. Coronary artery disease with history of stent placement in 2019 to LAD Severe peripheral vascular disease with history of SFA atherectomy and balloon angioplasty. Hypertension History of CVA and multiple TIAs History of AK Hyperlipidemia GERD History of gastric ulcers History of cerebral aneurysm requiring coiling. Chronic back pain history of multiple epidural injections Nephrolithiasis Diabetes type 2 [id number]-suzjdbqmy Ongoing nicotine addiction DVT prophylaxis. Patient is on heparin drip. Plan: Patient is on high flow oxygen.Patient will be continued on telemetry monitoring. s/p stent placement. Continue with dual antiplatelet therapy. Continue with IV steroids and antibiotics in the form of ceftriaxone. Started on IV Lasix. Continue with insulin sliding scale and pain management. Continue with breathing treatments and aspirin, Plavix. Pulmonary and cardiology is on board. Prognosis guarded at this time. Time with Patient: Greater than 30
[2020-05-01] MEDS: FUROSEMIDE 10 MG/ML 4 ML VIAL IV SCH ×3 (00:42→15:54)
[2020-05-01] MEDS: methylPREDNISolone SOD SUCCI 40 MG/ML 1 ML VIAL IV SCH ×3 (03:41→21:43)
[2020-05-01 04:48] LABS: Anisocytosis Slight; HCT 33.7 % (34.0-46.0); HGB 11.1 gm/dL (11.4-16.0); MCHC 32.8 g/dL (31.0-37.0); MCV 82.4 fL (80.0-100.0); Mean Platelet Volume 8.5; Platelet Count 166 k/uL (150-450); RBC 4.09 m/uL (3.80-5.40); RDW 16.5 % (11.5-15.5); WBC 10.8 k/uL (3.8-10.6)
[2020-05-01] MEDS: CLEVIDIPINE BUTYRATE 25 MG in EMPTY BAG 1 BAG IV SCH (04:53)
[2020-05-01 04:55] LABS: Calcium 8.3 mg/dL (8.4-10.2); Potassium 3.7 mmol/L (3.5-5.1)
[2020-05-01] MEDS ORDERED: POTASSIUM CHLORIDE ER 20 MEQ TAB.ER PO SCH (06:00)
[2020-05-01 06:18] LABS: Glucose,Whole Blood 195 mg/dL (75-99)
[2020-05-01] MEDS: INSULIN ASPART (NovoLOG) 100 UNIT/ML VIAL SQ SCH ×4 (06:27→21:57)
[2020-05-01] MEDS: GABAPENTIN 400 MG CAP PO SCH ×3 (06:28→21:43)
[2020-05-01] MEDS: NICOTINE 14MG/24HR PATCH TRANSDERM SCH (06:28)
--- NOTE | 2020-05-01 07:16 | XR ---
EXAMINATION TYPE: XR chest 1V portable DATE OF EXAM: 05/01/2020 HISTORY: Shortness of breath. COMPARISON: 04/30/2020 TECHNIQUE: Single view of the chest is submitted. FINDINGS: Demonstrated are scattered senescent parenchymal change. Patchy airspace infiltrates persist throughout both lung valdez. No change is seen. The heart is stable. Hilar and mediastinal structures are within normal limits. Degenerative changes are seen of the dorsal spine. IMPRESSION: 1. Patchy airspace infiltrates persist throughout both lung valdez. No change is seen.
[2020-05-01] MEDS: ASPIRIN 81 MG PO SCH (07:54)
[2020-05-01] MEDS: amLODIPine 5 MG TAB PO SCH (07:54)
[2020-05-01] MEDS: ISOSORBIDE MONONITRATE ER 30 MG TAB.ER.24H PO SCH (07:54)
[2020-05-01] MEDS: FOLIC ACID 1 MG TAB PO SCH (07:55)
[2020-05-01] MEDS: PANTOPRAZOLE 40 MG/10 ML VIAL IVP SCH (07:55)
[2020-05-01] MEDS: METOPROLOL TARTRATE 25 MG TAB PO SCH ×2 (07:55→21:43)
[2020-05-01] MEDS: CLOPIDOGREL 75 MG TAB PO SCH (07:55)
[2020-05-01] MEDS: ZINC SULFATE 220 MG CAP PO SCH (07:55)
[2020-05-01] MEDS: INSULIN DETEMIR (LEVEMIR) 100 UNIT/ML SYR SQ SCH (07:56)
[2020-05-01] MEDS: CHOLECALCIFEROL 400 UNIT TAB PO SCH (07:56)
[2020-05-01] MEDS: SERTRALINE 100 MG TAB PO SCH (07:56)
[2020-05-01] MEDS: ALBUTEROL HFA INHALER INHALATION SCH ×4 (08:09→20:11)
[2020-05-01] MEDS: HYDROcodone/APAP 5-325MG 1 EACH TAB PO PRN ×2 (09:06→14:01)
--- NOTE | 2020-05-01 09:51 | PN ---
PROGRESS NOTE Starr is a 65-year-old patient who is admitted to hospital with acute myocardial infarction and underwent cardiac catheterization and angioplasty on 04/26. She had stenting of the ostial right along with aspiration thrombectomy. She has prior stenting of the LAD and diagonal and also has known peripheral arterial disease. She is in isolation secondary to COVID. I reviewed the chart and talked to the nurse. Her exam shows that she is afebrile. Heart rate is 67 beats per minute. Blood pressure is 138/96, respiratory rate is 18. Labs show that the hemoglobin is 11.1, platelet count is 166, potassium is 3.7, BUN is 58, creatinine is 1.3. ASSESSMENT: Acute inferior wall myocardial infarction, status post catheterization and angioplasty of the LAD. PLAN: Patient will continue current medical therapy. She is stable for transfer out of the ICU on optimal medical therapy including Norvasc, Lipitor, aspirin, Lasix, Imdur, Lopressor. MMODL / IJN: [id number] /
[2020-05-01 11:04] VITALS: BMI 45.7
--- NOTE | 2020-05-01 11:44 | P.PN ---
Subjective Progress Note Date: 05/01/20 Principal diagnosis: COVID 19 infection, non-ST elevated [place] This is a 65-year-old female with history of coronary artery disease, previous PCI of the first diagonal branch of LAD, PCI of mid to distal LAD in March of 2019, moderate to severe disease involving proximal RCA, and peripheral vessel occlusive disease and previous balloon angioplasty of left SFA. Multiple stents placed in her peripheral arteries including left common iliac and right external iliac patient is also known to have history of hypertension, diabetes, dyslipidemia, and tobacco dependence syndrome. Patient was recently in the hospital with covid 19 pneumonitis. She was discharged on April 21 to the [facility]. Patient received full treatment, her initial diagnosis was made on April 10. On 04/26/20, patient was brought into the ER with sudden onset of chest discomfort, she woke up at 2:30 AM in the morning experiencing severe chest pain. She was also complaining of shortness of breath, and felt that her heart was racing. Upon arrival she was on a nonrebreather, O2 saturation was 78 %. EKG upon presentation showed deep T-wave inversion noted in the high lateral leads anteriorly with ST elevation noted inferiorly with underlying LVH. Chest x-ray clearly showed evidence of bilateral multifocal interstitial infiltrates. Remind you patient is still recovering from recent Covid 19 pneumonitis infection. Patient was bolused with heparin, received full aspirin and route, sublingual nitroglycerin was apparently given and a patch was applied. Patient underwent cardiac catheterization, and she had aspiration thrombectomy from the right coronary artery. Successful stenting of the ostial right coronary artery using a drug eluting stent, and she was sent to the ICU right after the procedure, patient was on a nonrebreather mask, extremely tachypneic upon arrival to the ICU, and I was made aware of this patient as soon as she arrived. I recommended immediate intubation and placement on mechanical ventilation. Patient is now on mechanical ventilation, she is on assist control rate of 20 volume is 450 FiO2 is 60% and I cut it down to 50% PEEP at 8. ABG this morning showed a pO2 of 78 pCO2 of 44 pH of 7.31. Patient is on propofol at 55 mcg/kg/m, IV fluids at KVO, patient was having intermittent episodes of hypotension, and I recommended emergent placement of right internal jugular central line, and an arterial line was also placed. Patient is definitely not ready for any weaning at this point. Chest x-ray is quite abnormal showing diffuse interstitial infiltrates, most likely this is related to her recent Covid 19 pneumonitis, although the possibility of underlying pulmonary edema is not entirely ruled out. Echocardiogram showed good LV function, there was inferior hypokinesis. Labs showed slight leukocytosis, hemoglobin is 10.6, d- dimer was 0.99. Troponin was as high as 12. Reevaluated today on 04/28/20, patient remains intubated and mechanically ventilated. She is presently on assist control rate of 20 tidal volume is 450 FiO2 is 50% PEEP is 8. ABG showed a pO2 of 82 pCO2 of 41 pH of 7.37. Patient is now off norepinephrine, she is status post stent of the RCA. Patient had Covid 19 diagnosis on 04/10. And her chest x-ray showed diffuse interstitial infiltrates. This was felt to be all related to Covid 19 pneumonitis, although the possibility of underlying interstitial edema in addition to the pneumonitis is not entirely ruled out. Patient was awakened today, she was placed on a pressure support of 10 and CPAP, and she was noted to do fairly well with good tidal volume good respiratory rate in the low 20s, hence I recommended e xtubation of the patient to a nasal cannula. CBC is relatively normal. Electrolytes are normal. Creatinine is improving down to 1.66. LDH is better today 1132 C-reactive protein is also better today. Reevaluated today on 04/29/20, patient was extubated yesterday, remains in the ICU, tolerated the extubation well, however she remains on 10 L high flow nasal cannula. Patient continues to have significantly abnormal chest x-ray, it is not clear based on the chest x-ray whether the findings are truly related to Covid 19 pneumonitis, or related to ongoing interstitial edema. I did recommend a BNP level, and I did recommend increasing the Lasix to 40 mg IV push every 8 hours. Clinically the patient is feeling better, breathing a lot easier. Considering the patient's BNP level came back over 14,000, I will go ahead and continue aggressive diuresis on this patient, I am strongly suspecting them the findings are findings of congestive heart failure/diastolic in nature since the echocardiogram showed good LV function. Patient was reevaluated today on , remains in the ICU, patient was extubated 2 days ago, remains on diuretics, I believe the findings on the chest x-ray are findings of interstitial edema in addition to underlying Covid 19 pneumonitis. But considering the patient had significantly elevated BNP level, I went ahead and increased her diuretics, cut down her IV fluid to KVO, patient improved significantly over the last 24 hours, she is now on 10 L high flow nasal cannula, and her O2 saturations 96%. IV fluid is at KVO. Patient is feeling better, breathing easier, her renal functioning is improving. Creatinine today is 1.36. Patient is off clevidipine which I started yesterday at night as her blood pressure was elevated. Patient is not requiring any pressors. And again her chest x-ray continues to show interstitial edema but significantly improved over the last couple of days. My plan is to continue to monitor the patient in the ICU for the next 24 hours, and possibly transfer to a cardiac floor tomorrow. CBC and basic metabolic profile today are better again her renal functioning is improving in spite of aggressive diuresis. On 05/01/2020 patient seen in follow-up in the intensive care unit, she is currently on 8 L of oxygen per high flow nasal cannula, and she is satting about 97%, hemodynamically she stable, she is not on any nasal active drips. She is on 0.9 adenosine at a rate of 20 ML per hour. She is awake and alert, oriented 3, denies any chest pain, denies any worsening dyspnea, today's chest x-ray has been reviewed, showing patchy airspace infiltrates, maintained on IV Lasix 40 mg every 8 hours, she is maintaining negative fluid balance. Objective - Vital Signs Vital signs: Vital Signs Temp 97.5 F L 05/01/20 08:00 Pulse 52 L 05/01/20 10:00 Resp 27 H 05/01/20 10:00 BP 138/96 05/01/20 09:00 Pulse Ox 97 05/01/20 10:00 Intake & Output 04/30/20 05/01/20 05/01/20 18:59 06:59 18:59 Intake Total 317.067 772.334 92 Output Total 2070 9335 680 Balance -1752.933 -912.666 -588 Weight 106.2 kg 106.2 kg Intake: IV 311 276 92 0.9NS 275 240 80 Fenton flush 36 36 12 Intake, IV Titration 6.067 16.334 Amount Clevidipine Butyrate 25 6.067 16.334 mg In Empty Bag 1 bag @ 1 MG/HR 2 mls/hr IV .Q24H [facility] Rx#:[id number] Oral 480 Output: Urine 2070 1685 680 Other: Voiding Method Indwelling Catheter Indwelling Catheter Indwelling Catheter # Bowel Movements 1 ABP, PAP, CO, CI - Last Documented Arterial Blood Pressure 150/59 - Exam GENERAL EXAM: Alert, very pleasant, 8 L of oxygen, pulse ox is 97% comfortable in no apparent distress. HEAD: Normocephalic/atraumatic. EYES: Normal reaction of pupils, equal size. Conjunctiva pink, sclera white. NOSE: Clear with pink turbinates. THROAT: No erythema or exudates. NECK: No masses, no JVD, no thyroid enlargement, no adenopathy. CHEST: No chest wall deformity. Symmetrical expansion. LUNGS: Equal air entry with bibasilar crackles but no wheeze, rhonchi or dullness. CVS: Regular rate and rhythm, normal S1 and S2, no gallops, no murmurs, no rubs ABDOMEN: Soft, nontender. No hepatosplenomegaly, normal bowel sounds, no guarding or rigidity. EXTREMITIES: No clubbing, no edema, no cyanosis, 2+ pulses and upper and lower extremities. MUSCULOSKELETAL: Muscle strength and tone normal. SPINE: No scoliosis or deformity SKIN: No rashes CENTRAL NERVOUS SYSTEM: Alert and oriented -3. No focal deficits, tone is normal in all 4 extremities. PSYCHIATRIC: Alert and oriented -3. Appropriate affect. Intact judgment and insight. - Labs CBC & Chem 7: 05/01/20 04:00 05/01/20 10:32 Labs: Abnormal Lab Results - Last 24 Hours (Table) 04/30/20 04/30/20 04/30/20 Range/Units 11:38 16:45 20:16 WBC (3.8-10.6) k/uL Hgb (11.4-16.0) gm/dL Hct (34.0-46.0) % RDW (11.5-15.5) % Carbon Dioxide (22-30) mmol/L BUN (7-17) mg/dL Creatinine (0.52-1.04) mg/dL Glucose (74-99) mg/dL POC Glucose (mg/dL) 179 H 202 H 196 H (75-99) mg/dL Calcium (8.4-10.2) mg/dL 05/01/20 05/01/20 05/01/20 Range/Units 04:00 04:00 06:17 WBC 10.8 H (3.8-10.6) k/uL Hgb 11.1 L (11.4-16.0) gm/dL Hct 33.7 L (34.0-46.0) % RDW 16.5 H (11.5-15.5) % Carbon Dioxide 31 H (22-30) mmol/L BUN 58 H (7-17) mg/dL Creatinine 1.35 H (0.52-1.04) mg/dL Glucose 214 H (74-99) mg/dL POC Glucose (mg/dL) 195 H (75-99) mg/dL Calcium 8.3 L (8.4-10.2) mg/dL Assessment and Plan Plan: Assessment: #1. Acute hypoxic respiratory failure secondary to recent history of chronic 19 pneumonitis in addition to acute exacerbation of diastolic CHF, requiring i ntubation and mechanical ventilation, was successfully weaned and extubated on 04/28/2020 #2. Acute exacerbation of diastolic congestive heart failure #3. Acute ST elevated myocardial infarction/inferior wall [place], status post stenting of the RCA #4. Severe peripheral vessel occlusive disease and previous SFA atherectomy and balloon angioplasty #5. Morbid obesity #6. History of CVA and multiple TIAs #7. Severe coronary artery disease status post multiple stents #8. History of GERD #9. History of gastric ulcer disease #10. History of cerebral aneurysm requiring colectomy #11. History of nephrolithiasis #12. Type 2 diabetes mellitus #13. Tobacco dependence syndrome #14. Acute urinary tract infection with urine culture positive for Enterococcus faecalis. Plan: Continue with diuretics, FiO2, continue the vitamins,IV steroids, we'll add Lovenox 30 mg once daily for anticoagulation. Send repeat UA today, currently on Rocephin, if urinalysis still shows evidence of urinary tract infection may have to switch to Levaquin. Stable for transfer out of intensive care unit to selective care unit. Continue to follow I performed a history & physical examination of the patient and discussed their management with my nurse practitioner, Zakia Estrada. I reviewed the nurse practitioner's note and agree with the documented findings and plan of care. Lung sounds are positive for diminished breath sounds The findings and the impression was discussed with the patient. I attest to the documentation by the nurse practitioner. Time with Patient: Greater than 30
[2020-05-01] MEDS: ENOXAPARIN 30 MG/0.3 ML SYRINGE SQ SCH (12:00)
[2020-05-01 12:17] LABS: Glucose,Whole Blood 156 mg/dL (75-99)
[2020-05-01 16:26] LABS: Glucose,Whole Blood 322 mg/dL (75-99)
[2020-05-01 16:39] LABS: Appearance,Urine Cloudy (Clear); Bacteria,Urine Rare /hpf; Bilirubin,Urine Negative (Negative); Blood,Urine Negative (Negative); Budding Yeast,Urine Few /hpf; Color,Urine Yellow; Glucose,Urine (UA) 1+ (Negative); Ketones,Urine Negative (Negative); Leukocyte Esterase,Urine Moderate (Negative); Mucus,Urine Occasional /hpf; Nitrite,Urine Positive (Negative); Protein,Urine Trace (Negative); RBC,Urine 3 /hpf (0-5); Squamous Epithelial Cell,Urine <1 /hpf (0-4); Urobilinogen,Urine <2.0 mg/dL (<2.0); WBC,Urine 8 /hpf (0-5)
[2020-05-01] MEDS: ASCORBIC ACID 500 MG TAB PO SCH (21:42)
[2020-05-01] MEDS: ATORVASTATIN 40 MG TAB PO SCH (21:43)
[2020-05-01 21:54] LABS: Glucose,Whole Blood 311 mg/dL (75-99)
[2020-05-02] MEDS: FUROSEMIDE 10 MG/ML 4 ML VIAL IV SCH ×4 (00:38→23:17)
--- NOTE | 2020-05-02 00:43 | P.PN ---
Subjective Progress Note Date: 05/01/20 Principal diagnosis: Acute ST elevated IN/inferior wall IN with ST elevation in the leads II, III and aVF Recent COVID-19 pneumonia Patient is a 65-year-old female with a known history of coronary artery disease with a stent placement, COPD, history of CVA/TIA, diabetes type 2, hyperlipidemia, history of gastric ulcers, history of [employer] aneurysm with bleeding requiring coiling, chronic back pain with history of epidural injections, nephrolithiasis and currently everyday smoker, anxiety/depression and other multiple medical problems, peripheral vascular disease with left SFA atherectomy and balloon angioplasty presents to ER with the complaints of chest discomfort mainly retrosternal region and woke her up from sleep at around 2:30 AM which she felt like a panic attack. Chest pain is associate with shortness of breath and a racing of heart. Radiating to the neck. On arrival patient was saturating at 78% and was placed on 100% nonrebreather. Patient was recently discharged from the hospital on April 21, 2020. Patient was treated for COVID-19 pneumonia and was discharged to [facility]. In the ER patient had EKG which showed ST elevations in the leads II, III and aVF. Patient was immediately taken to [facility]. Laboratory data showed WBC 17.4, hemoglobin 10.7 and platelets 208 Neutrophils 15.1 BUN 31 and creatinine 1.52 Troponin V 0.39, 12.7 AST 81 and ALT 121 Patient has been afebrile but requiring 100% nonrebreather. 04/27/2020 patient was intubated after raising MICU. Patient had cardiac catheterization and found to have total occlusion of the proximal RCA and successful stenting of RCA was performed. Patient had patent stent in the LAD. Normal left circumflex artery. Continue with dual antiplatelet therapy. Chest x-ray showed nasogastric tube in the esophagus there is moderate pulmonary edema unchanged compared to exam 4 hours ago. Laboratory data reviewed. 04/28/2020 Patient is currently intubated and on mechanical ventilator. Patient is off Levophed drip. Chest x-ray showed diffuse interstitial infiltrates. Likely due to Covid pneumonitis. Patient is being extubated. Inflammatory markers are improving. Creatinine level improved to 1.66 today. 04/29/2020 Patient is currently in the MICU. Saturating well on high flow oxygen at 10 L. Chest x-ray showed stable diffuse bilateral airspace disease correlate for pneumonia. Patient is being continued antibiotics in the form of ceftriaxone. Continued on started on IV steroids. Off pressor support. Continued on dual antiplatelet therapy and also on IV steroids. Pulmonary and cardiology is on board. Laboratory data showed hemoglobin 9.9, BUN 41 and creatinine 1.38 LDH 1010, CRP 53.6 and proBNP 67788. 04/30/2020 Patient is currently in MICU. Awake and alert. Patient is currently on high flow oxygen at 10L to 11 L. Patient is also being continued on IV steroids. Chest x-ray showed patchy airspace infiltrates persistent throughout both lung valdez. No significant interval change appreciated. Laboratory data showed hemoglobin 10.8, neutrophils 8.2, BUN 48 and creatinine 1.36 Blood sugar is fairly controlled. Patient is being continued on steroids IV steroids and IV Lasix and insulin regimen. Cardiology and pulmonary is on board. 05/01/2018 Patient is currently awake alert and oriented x3. Saturating at 95% on 6 L high flow oxygen. Patient is being transferred to medical floor. Denied any complaints of chest pain or worsening shortness of breath. Chest x-ray showed patchy airspace infiltrates persistent throughout both lungs. No change seen. Patient is being continued dual antiplatelet therapy and antibiotics at home of ceftriaxone. Urine culture showed Enterococcus faecalis. Patient is allergic to penicillins. Patient will be started on Levaquin. Cardiology and pulmonary is on board. Current medications reviewed. Objective - Vital Signs Vital signs: Vital Signs Temp 97.8 F 05/01/20 16:00 Pulse 62 05/01/20 19:00 Resp 19 05/01/20 19:00 BP 136/77 05/01/20 19:00 Pulse Ox 92 L 05/01/20 19:00 Intake & Output 05/01/20 05/01/20 05/02/20 06:59 18:59 06:59 Intake Total 811.458 6533 Output Total 1685 1525 75 Balance -912.666 -407 -75 Weight 106.2 kg 106.2 kg Intake: IV 276 158 0.9NS 240 140 Laya flush 36 18 Intake, IV Titration 16.334 Amount Clevidipine Butyrate 25 16.334 mg In Empty Bag 1 bag @ 1 MG/HR 2 mls/hr IV .Q24H [facility] Rx#:[id number] Oral 480 960 Output: Urine 1685 1525 75 Other: Voiding Method Indwelling Catheter Indwelling Catheter # Bowel Movements 1 ABP, PAP, CO, CI - Last Documented Arterial Blood Pressure 150/59 - Exam PHYSICAL EXAMINATION: Patient is lying in the bed comfortably, no acute distress, awake alert and oriented.. HEENT: Normocephalic. Neck is supple. Pupils reactive. Nostrils clear. Oral cavity is moist. Ears reveal no drainage. Neck reveals no JVD, carotid bruits, or thyromegaly. CHEST EXAMINATION: Trachea is central. Symmetrical expansion. Bibasilar diminished air entry and coarse breath sounds.. CARDIAC: Normal S1, S2 with no gallops. No murmurs ABDOMEN: Soft. Bowel sounds normal. No organomegaly. No abdominal bruits. Extremities: reveal no edema. No clubbing or cyanosis Neurologically awake, alert, oriented x3 with well-coordinated movements. No focal deficits noted Skin: No rash or skin lesions. Psychiatric: Coperative. Nonsuicidal Musculoskeletal: No joint swelling or deformity. Normal range of motion. - Labs CBC & Chem 7: 05/01/20 04:00 05/01/20 10:32 Labs: Abnormal Lab Results - Last 24 Hours (Table) 05/01/20 05/01/20 05/01/20 Range/Units 04:00 04:00 06:17 WBC 10.8 H (3.8-10.6) k/uL Hgb 11.1 L (11.4-16.0) gm/dL Hct 33.7 L (34.0-46.0) % RDW 16.5 H (11.5-15.5) % Carbon Dioxide 31 H (22-30) mmol/L BUN 58 H (7-17) mg/dL Creatinine 1.35 H (0.52-1.04) mg/dL Glucose 214 H (74-99) mg/dL POC Glucose (mg/dL) 195 H (75-99) mg/dL Calcium 8.3 L (8.4-10.2) mg/dL Urine Appearance (Clear) Urine Protein (Negative) Urine Glucose (UA) (Negative) Urine Nitrite (Negative) Ur Leukocyte Esterase (Negative) Urine WBC (0-5) /hpf Urine Bacteria (None) /hpf Urine Mucus (None) /hpf Urine Yeast (Budding) (None) /hpf 05/01/20 05/01/20 05/01/20 Range/Units 12:16 16:20 16:25 WBC (3.8-10.6) k/uL Hgb (11.4-16.0) gm/dL Hct (34.0-46.0) % RDW (11.5-15.5) % Carbon Dioxide (22-30) mmol/L BUN (7-17) mg/dL Creatinine (0.52-1.04) mg/dL Glucose (74-99) mg/dL POC Glucose (mg/dL) 156 H 322 H (75-99) mg/dL Calcium (8.4-10.2) mg/dL Urine Appearance Cloudy H (Clear) Urine Protein Trace H (Negative) Urine Glucose (UA) 1+ H (Negative) Urine Nitrite Positive H (Negative) Ur Leukocyte Esterase Moderate H (Negative) Urine WBC 8 H (0-5) /hpf Urine Bacteria Rare H (None) /hpf Urine Mucus Occasional H (None) /hpf Urine Yeast (Budding) Few H (None) /hpf Assessment and Plan Assessment: Acute hypoxic respiratory failure secondary to covid 19 pneumonitis.Currently high flow oxygen. Acute ST elevated IN/inferior wall IN with ST elevation in the leads II, III and aVF. Status post stenting of RCA. Enterococcus faecalis urinary tract infection Recent COVID-19 pneumonia and was discharged to [facility]. Coronary artery disease with history of stent placement in 2019 to LAD Severe peripheral vascular disease with history of SFA atherectomy and balloon angioplasty. Hypertension History of CVA and multiple TIAs History of IN Hyperlipidemia GERD History of gastric ulcers History of cerebral aneurysm requiring coiling. Chronic back pain history of multiple epidural injections Nephrolithiasis Diabetes type 2 [id number] Ongoing nicotine addiction DVT prophylaxis. Patient is on heparin drip. Plan: Patient is on high flow oxygen.Patient will be continued on telemetry monitoring. s/p stent placement. Continue with dual antiplatelet therapy. Continue with IV steroids and antibiotics in the form of ceftriaxone-->Levofloxacin. Continue with insulin sliding scale and pain management. Continue with breathing treatments and aspirin, Plavix. Pulmonary and cardiology is on board. Prognosis guarded at this time. Time with Patient: Greater than 30
[2020-05-02] MEDS ORDERED: LEVOFLOXACIN 500MG-D5W PMX 500 MG in DEXTROSE/WATER 1 100ML.BAG IVPB SCH (01:00)
[2020-05-02] MEDS: ALBUTEROL HFA INHALER INHALATION SCH ×4 (04:07→21:06)
[2020-05-02] MEDS: methylPREDNISolone SOD SUCCI 40 MG/ML 1 ML VIAL IV SCH ×3 (04:51→20:25)
[2020-05-02 05:43] LABS: Anisocytosis Slight; Basophils % (A) 0 %; Eosinophils # (A) 0.1 k/uL (0-0.7); Eosinophils % (A) 1 %; HCT 36.1 % (34.0-46.0); HGB 11.7 gm/dL (11.4-16.0); Hypochromasia Slight; Lymphocytes # (A) 1.3 k/uL (1.0-4.8); Lymphocytes % (A) 13 %; MCH 26.7 pg (25.0-35.0); MCHC 32.3 g/dL (31.0-37.0); MCV 82.5 fL (80.0-100.0); Mean Platelet Volume 8.5; Monocytes # (A) 0.5 k/uL (0-1.0); Monocytes % (A) 5 %; Neutrophils # (A) 8.3 k/uL (1.3-7.7); Neutrophils % (A) 80 %; Platelet Count 163 k/uL (150-450); RBC 4.38 m/uL (3.80-5.40); RDW 16.2 % (11.5-15.5); WBC 10.3 k/uL (3.8-10.6)
[2020-05-02 05:53] LABS: Calcium 8.4 mg/dL (8.4-10.2); Potassium 3.8 mmol/L (3.5-5.1)
[2020-05-02 07:10] LABS: Glucose,Whole Blood 244 mg/dL (75-99)
[2020-05-02] MEDS: INSULIN ASPART (NovoLOG) 100 UNIT/ML VIAL SQ SCH ×4 (07:12→20:25)
[2020-05-02] MEDS: NICOTINE 14MG/24HR PATCH TRANSDERM SCH (07:19)
[2020-05-02] MEDS: PANTOPRAZOLE 40 MG TABLET PO SCH (07:19)
[2020-05-02] MEDS: GABAPENTIN 400 MG CAP PO SCH ×3 (07:19→23:16)
--- NOTE | 2020-05-02 07:31 | XR ---
EXAMINATION TYPE: XR chest 1V portable DATE OF EXAM: 05/02/2020 COMPARISON: Prior chest x-ray 05/01/2020 HISTORY: Abnormal chest x-ray TECHNIQUE: Single frontal view of the chest is obtained. FINDINGS: Thoracic stimulator lead is stable over the midthoracic spine. The right jugular central v enous catheter is been removed. There is no evident pneumothorax or pleural effusion. Lung volumes ar e low and the patient is rotated. Heart appears prominently. Aorta is dense. There are overlying lead s. IMPRESSION: Correlate for pneumonia, edema
[2020-05-02] MEDS: SERTRALINE 100 MG TAB PO SCH (08:54)
[2020-05-02] MEDS: ZINC SULFATE 220 MG CAP PO SCH (08:55)
[2020-05-02] MEDS: ENOXAPARIN 30 MG/0.3 ML SYRINGE SQ SCH (08:55)
[2020-05-02] MEDS: ASPIRIN 81 MG PO SCH (08:55)
[2020-05-02] MEDS: CHOLECALCIFEROL 400 UNIT TAB PO SCH (08:55)
[2020-05-02] MEDS: amLODIPine 5 MG TAB PO SCH (08:55)
[2020-05-02] MEDS: CLOPIDOGREL 75 MG TAB PO SCH (08:55)
[2020-05-02] MEDS: ISOSORBIDE MONONITRATE ER 30 MG TAB.ER.24H PO SCH (08:56)
[2020-05-02] MEDS: INSULIN DETEMIR (LEVEMIR) 100 UNIT/ML SYR SQ SCH (08:56)
[2020-05-02] MEDS: FOLIC ACID 1 MG TAB PO SCH (08:56)
[2020-05-02] MEDS: METOPROLOL TARTRATE 25 MG TAB PO SCH ×2 (09:19→20:25)
--- NOTE | 2020-05-02 10:55 | P.PN ---
Subjective Progress Note Date: 05/02/20 Principal diagnosis: COVID 19 infection, non-ST elevated AR This is a 65-year-old female with history of coronary artery disease, previous PCI of the first diagonal branch of LAD, PCI of mid to distal LAD in March of 2019, moderate to severe disease involving proximal RCA, and peripheral vessel occlusive disease and previous balloon angioplasty of left SFA. Multiple stents placed in her peripheral arteries including left common iliac and right external iliac patient is also known to have history of hypertension, diabetes, dyslipidemia, and tobacco dependence syndrome. Patient was recently in the hospital with covid 19 pneumonitis. She was discharged on April 21 to the [facility]. Patient received full treatment, her initial diagnosis was made on April 10. On 04/26/20, patient was brought into the ER with sudden onset of chest discomfort, she woke up at 2:30 AM in the morning experiencing severe chest pain. She was also complaining of shortness of breath, and felt that her heart was racing. Upon arrival she was on a nonrebreather, O2 saturation was 78 %. EKG upon presentation showed deep T-wave inversion noted in the high lateral leads anteriorly with ST elevation noted inferiorly with underlying LVH. Chest x-ray clearly showed evidence of bilateral multifocal interstitial infiltrates. Remind you patient is still recovering from recent Covid 19 pneumonitis infection. Patient was bolused with heparin, received full aspirin and route, sublingual nitroglycerin was apparently given and a patch was applied. Patient underwent cardiac catheterization, and she had aspiration thrombectomy from the right coronary artery. Successful stenting of the ostial right coronary artery using a drug eluting stent, and she was sent to the ICU right after the procedure, patient was on a nonrebreather mask, extremely tachypneic upon arrival to the ICU, and I was made aware of this patient as soon as she arrived. I recommended immediate intubation and placement on mechanical ventilation. Patient is now on mechanical ventilation, she is on assist control rate of 20 volume is 450 FiO2 is 60% and I cut it down to 50% PEEP at 8. ABG this morning showed a pO2 of 78 pCO2 of 44 pH of 7.31. Patient is on propofol at 55 mcg/kg/m, IV fluids at KVO, patient was having intermittent episodes of hypotension, and I recommended emergent placement of right internal jugular central line, and an arterial line was also placed. Patient is definitely not ready for any weaning at this point. Chest x-ray is quite abnormal showing diffuse interstitial infiltrates, most likely this is related to her recent Covid 19 pneumonitis, although the possibility of underlying pulmonary edema is not entirely ruled out. Echocardiogram showed good LV function, there was inferior hypokinesis. Labs showed slight leukocytosis, hemoglobin is 10.6, d- dimer was 0.99. Troponin was as high as 12. Reevaluated today on 04/28/20, patient remains intubated and mechanically ventilated. She is presently on assist control rate of 20 tidal volume is 450 FiO2 is 50% PEEP is 8. ABG showed a pO2 of 82 pCO2 of 41 pH of 7.37. Patient is now off norepinephrine, she is status post stent of the RCA. Patient had Covid 19 diagnosis on 04/10. And her chest x-ray showed diffuse interstitial infiltrates. This was felt to be all related to Covid 19 pneumonitis, although the possibility of underlying interstitial edema in addition to the pneumonitis is not entirely ruled out. Patient was awakened today, she was placed on a pressure support of 10 and CPAP, and she was noted to do fairly well with good tidal volume good respiratory rate in the low 20s, hence I recommended e xtubation of the patient to a nasal cannula. CBC is relatively normal. Electrolytes are normal. Creatinine is improving down to 1.66. LDH is better today 1132 C-reactive protein is also better today. Reevaluated today on 04/29/20, patient was extubated yesterday, remains in the ICU, tolerated the extubation well, however she remains on 10 L high flow nasal cannula. Patient continues to have significantly abnormal chest x-ray, it is not clear based on the chest x-ray whether the findings are truly related to Covid 19 pneumonitis, or related to ongoing interstitial edema. I did recommend a BNP level, and I did recommend increasing the Lasix to 40 mg IV push every 8 hours. Clinically the patient is feeling better, breathing a lot easier. Considering the patient's BNP level came back over 14,000, I will go ahead and continue aggressive diuresis on this patient, I am strongly suspecting them the findings are findings of congestive heart failure/diastolic in nature since the echocardiogram showed good LV function. Patient was reevaluated today on , remains in the ICU, patient was extubated 2 days ago, remains on diuretics, I believe the findings on the chest x-ray are findings of interstitial edema in addition to underlying Covid 19 pneumonitis. But considering the patient had significantly elevated BNP level, I went ahead and increased her diuretics, cut down her IV fluid to KVO, patient improved significantly over the last 24 hours, she is now on 10 L high flow nasal cannula, and her O2 saturations 96%. IV fluid is at KVO. Patient is feeling better, breathing easier, her renal functioning is improving. Creatinine today is 1.36. Patient is off clevidipine which I started yesterday at night as her blood pressure was elevated. Patient is not requiring any pressors. And again her chest x-ray continues to show interstitial edema but significantly improved over the last couple of days. My plan is to continue to monitor the patient in the ICU for the next 24 hours, and possibly transfer to a cardiac floor tomorrow. CBC and basic metabolic profile today are better again her renal functioning is improving in spite of aggressive diuresis. On 05/01/2020 patient seen in follow-up in the intensive care unit, she is currently on 8 L of oxygen per high flow nasal cannula, and she is satting about 97%, hemodynamically she stable, she is not on any nasal active drips. She is on 0.9 adenosine at a rate of 20 ML per hour. She is awake and alert, oriented 3, denies any chest pain, denies any worsening dyspnea, today's chest x-ray has been reviewed, showing patchy airspace infiltrates, maintained on IV Lasix 40 mg every 8 hours, she is maintaining negative fluid balance. On 05/02/2020 patient seen in follow-up in the intensive care unit. She remains extubated, tolerating it well so far, she is on 10 L of oxygen, with pulse ox of 94%, she is hemodynamically stable, she has had no fever or chills, she is breathing comfortably, today's chest x-ray still shows low lung volumes, patchy airspace infiltrates, patient is maintained on IV diuretics at 40 mg every 8 hours, and she is in negative fluid balance the total of -1.4 L over last 24 madiha rs, IV fluids have been hep-locked, she is in sinus mechanism with a controlled rate, she's been awaiting a bed for selective care since yesterday, she has remained stable overnight. No complaints of chest pain for worsening shortness of breath. Objective - Vital Signs Vital signs: Vital Signs Temp 98.2 F 05/02/20 08:00 Pulse 52 L 05/02/20 09:00 Resp 15 05/02/20 09:00 BP 133/70 05/02/20 08:00 Pulse Ox 94 L 05/02/20 09:00 Intake & Output 05/01/20 05/02/20 05/02/20 18:59 06:59 18:59 Intake Total 1118 1050 150 Output Total 1525 2100 215 Balance -407 -1050 -65 Weight 106.2 kg 106.8 kg Intake: IV 158 150 0.9NS 140 [place] flush 18 Levofloxacin 500Mg-D5w 100 Pmx 500 mg In Dextrose/ Water 1 100ml.bag @ 100 mls/hr IVPB Q24H ERASMO Rx#: [id number] cefTRIAXone 1 gm In 50 Sodium Chloride 0.9% 50 ml @ 100 mls/hr IVPB Q24H ERASMO Rx#:[id number] Oral 960 900 150 Output: Urine 1525 2100 215 Other: Voiding Method Indwelling Catheter Indwelling Catheter Indwelling Catheter ABP, PAP, CO, CI - Last Documented Arterial Blood Pressure 150/59 - Exam GENERAL EXAM: Alert, very pleasant, 10 L of oxygen, pulse ox is 97% comfortable in no apparent distress. HEAD: Normocephalic/atraumatic. EYES: Normal reaction of pupils, equal size. Conjunctiva pink, sclera white. NOSE: Clear with pink turbinates. THROAT: No erythema or exudates. NECK: No masses, no JVD, no thyroid enlargement, no adenopathy. CHEST: No chest wall deformity. Symmetrical expansion. LUNGS: Equal air entry with bibasilar crackles but no wheeze, rhonchi or dullness. CVS: Regular rate and rhythm, normal S1 and S2, no gallops, no murmurs, no rubs ABDOMEN: Soft, nontender. No hepatosplenomegaly, normal bowel sounds, no guarding or rigidity. EXTREMITIES: No clubbing, no edema, no cyanosis, 2+ pulses and upper and lower extremities. MUSCULOSKELETAL: Muscle strength and tone normal. SPINE: No scoliosis or deformity SKIN: No rashes CENTRAL NERVOUS SYSTEM: Alert and oriented -3. No focal deficits, tone is normal in all 4 extremities. PSYCHIATRIC: Alert and oriented -3. Appropriate affect. Intact judgment and insight. - Labs CBC & Chem 7: 05/02/20 05:05 05/02/20 05:05 Labs: Abnormal Lab Results - Last 24 Hours (Table) 05/01/20 05/01/20 05/01/20 Range/Units 12:16 16:20 16:25 RDW (11.5-15.5) % Neutrophils # (1.3-7.7) k/uL Carbon Dioxide (22-30) mmol/L BUN (7-17) mg/dL Creatinine (0.52-1.04) mg/dL Glucose (74-99) mg/dL POC Glucose (mg/dL) 156 H 322 H (75-99) mg/dL Urine Appearance Cloudy H (Clear) Urine Protein Trace H (Negative) Urine Glucose (UA) 1+ H (Negative) Urine Nitrite Positive H (Negative) Ur Leukocyte Esterase Moderate H (Negative) Urine WBC 8 H (0-5) /hpf Urine Bacteria Rare H (None) /hpf Urine Mucus Occasional H (None) /hpf Urine Yeast (Budding) Few H (None) /hpf 05/01/20 05/02/20 05/02/20 Range/Units 21:52 05:05 05:05 RDW 16.2 H (11.5-15.5) % Neutrophils # 8.3 H (1.3-7.7) k/uL Carbon Dioxide 31 H (22-30) mmol/L BUN 53 H (7-17) mg/dL Creatinine 1.18 H (0.52-1.04) mg/dL Glucose 247 H (74-99) mg/dL POC Glucose (mg/dL) 311 H (75-99) mg/dL Urine Appearance (Clear) Urine Protein (Negative) Urine Glucose (UA) (Negative) Urine Nitrite (Negative) Ur Leukocyte Esterase (Negative) Urine WBC (0-5) /hpf Urine Bacteria (None) /hpf Urine Mucus (None) /hpf Urine Yeast (Budding) (None) /hpf 05/02/20 Range/Units 07:07 RDW (11.5-15.5) % Neutrophils # (1.3-7.7) k/uL Carbon Dioxide (22-30) mmol/L BUN (7-17) mg/dL Creatinine (0.52-1.04) mg/dL Glucose (74-99) mg/dL POC Glucose (mg/dL) 244 H (75-99) mg/dL Urine Appearance (Clear) Urine Protein (Negative) Urine Glucose (UA) (Negative) Urine Nitrite (Negative) Ur Leukocyte Esterase (Negative) Urine WBC (0-5) /hpf Urine Bacteria (None) /hpf Urine Mucus (None) /hpf Urine Yeast (Budding) (None) /hpf Assessment and Plan Plan: Assessment: #1. Acute hypoxic respiratory failure secondary to recent history of chronic 19 pneumonitis in addition to acute exacerbation of diastolic CHF, requiring intubation and mechanical ventilation, was successfully weaned and extubated on 04/28/2020 #2. Acute exacerbation of diastolic congestive heart failure #3. Acute ST elevated myocardial infarction/inferior wall AR, status post stenting of the RCA #4. Severe peripheral vessel occlusive disease and previous SFA atherectomy and balloon angioplasty #5. Morbid obesity #6. History of CVA and multiple TIAs #7. Severe coronary artery disease status post multiple stents #8. History of GERD #9. History of gastric ulcer disease #10. History of cerebral aneurysm requiring colectomy #11. History of nephrolithiasis #12. Type 2 diabetes mellitus #13. Tobacco dependence syndrome #14. Acute urinary tract infection with urine culture positive for Enterococcus faecalis. Plan: Continue with diuretics for another 24 hours, repeat chest x-ray in the morning, wean FiO2, encourage deep breathing and coughing, increase activity as tolerated, patient is stable to go out of the ICU to selective care. GI and DVT prophylaxis, continue breathing treatments and IV steroids, we'll continue to follow. I performed a history & physical examination of the patient and discussed their management with my nurse practitioner, Zakia Estrada. I reviewed the nurse practitioner's note and agree with the documented findings and plan of care. Lung sounds are positive for diminished breath sounds The findings and the impression was discussed with the patient. I attest to the documentation by the nurse practitioner. Time with Patient: Less than 30
[2020-05-02 11:37] LABS: Glucose,Whole Blood 164 mg/dL (75-99)
--- NOTE | 2020-05-02 17:16 | PN ---
PROGRESS NOTE FOLLOW-UP NOTE: Starr is a 65-year-old lady who is admitted to hospital with acute myocardial infarction. She underwent cardiac catheterization and angioplasty. She had angioplasty of the right coronary artery and had prior stenting of the LAD, has known peripheral arterial disease. The patient is in COVID isolation. I reviewed the chart, talked to the nurse. Patient is free of chest pain. Her breathing appears stable. She is currently on Norvasc 5 mg daily, Lipitor 40 daily, Plavix 75 daily, subcutaneous Lovenox, Lasix 40 IV q.8, Levemir and Imdur along with Levaquin. Chest x-ray on her shows evidence of pneumonia. Physical examination shows that patient is afebrile. Heart rate is 57 beats per minute. Blood pressure is 120/82, respiratory rate is 18. Oxygen saturation is 95% on 10 liters high flow. Labs show that the hemoglobin is 11.7, platelet count is 163. Potassium is 3.8, BUN is 53, creatinine is 1.1. ASSESSMENT: 1. Acute myocardial infarction, status post catheterization and angioplasty of right coronary artery. 2. Possible COVID pneumonia. PLAN: Continue patient on current medical therapy. MMODL / IJN: [id number] /
[2020-05-02 17:19] LABS: Glucose,Whole Blood 286 mg/dL (75-99)
[2020-05-02 20:17] LABS: Glucose,Whole Blood 155 mg/dL (75-99)
[2020-05-02] MEDS: ASCORBIC ACID 500 MG TAB PO SCH (20:24)
[2020-05-02] MEDS: HYDROcodone/APAP 5-325MG 1 EACH TAB PO PRN (20:25)
[2020-05-02] MEDS: ATORVASTATIN 40 MG TAB PO SCH (20:25)
[2020-05-02] MEDS: NOREPINEPHRINE 4 MG in SODIUM CHLORIDE 0.9% 250 ML IV SCH (21:30)
[2020-05-03] MEDS: LEVOFLOXACIN 250MG-D5W PMX 250 MG in DEXTROSE/WATER 1 50ML.BAG IVPB SCH ×2 (00:09→23:49)
[2020-05-03] MEDS: methylPREDNISolone SOD SUCCI 40 MG/ML 1 ML VIAL IV SCH ×2 (02:57→20:41)
[2020-05-03] MEDS: ALBUTEROL HFA INHALER INHALATION SCH ×4 (05:29→22:08)
[2020-05-03 06:14] LABS: Glucose,Whole Blood 247 mg/dL (75-99)
[2020-05-03] MEDS: GABAPENTIN 400 MG CAP PO SCH ×3 (06:19→20:41)
[2020-05-03] MEDS: PANTOPRAZOLE 40 MG TABLET PO SCH (06:19)
[2020-05-03] MEDS: INSULIN ASPART (NovoLOG) 100 UNIT/ML VIAL SQ SCH ×4 (06:19→20:42)
[2020-05-03] MEDS: NICOTINE 14MG/24HR PATCH TRANSDERM SCH (06:19)
[2020-05-03] MEDS: ISOSORBIDE MONONITRATE ER 30 MG TAB.ER.24H PO SCH (09:24)
[2020-05-03] MEDS: ZINC SULFATE 220 MG CAP PO SCH (09:24)
[2020-05-03] MEDS: METOPROLOL TARTRATE 25 MG TAB PO SCH ×2 (09:24→20:41)
[2020-05-03] MEDS: ASPIRIN 81 MG PO SCH (09:24)
[2020-05-03] MEDS: CLOPIDOGREL 75 MG TAB PO SCH (09:24)
[2020-05-03] MEDS: FUROSEMIDE 10 MG/ML 4 ML VIAL IV SCH ×2 (09:25→20:40)
[2020-05-03] MEDS: amLODIPine 5 MG TAB PO SCH (09:25)
[2020-05-03] MEDS: SERTRALINE 100 MG TAB PO SCH (09:25)
[2020-05-03] MEDS: FOLIC ACID 1 MG TAB PO SCH (09:25)
[2020-05-03] MEDS: ENOXAPARIN 40 MG/0.4 ML SYRINGE SQ SCH (09:26)
[2020-05-03] MEDS: CHOLECALCIFEROL 400 UNIT TAB PO SCH (09:26)
[2020-05-03] MEDS: INSULIN DETEMIR (LEVEMIR) 100 UNIT/ML SYR SQ SCH (09:26)
[2020-05-03 11:48] LABS: Glucose,Whole Blood 248 mg/dL (75-99)
--- NOTE | 2020-05-03 13:38 | P.PN ---
Subjective Progress Note Date: 05/03/20 CHIEF COMPLAINT: STEMI HISTORY OF PRESENT ILLNESS: This is a 65-year-old female who was admitted with a STEMI. She underwent PCI to RCA. Patient was transferred out of the ICU to the cardiac stepdown unit. She is positive for Covid. She remains on IV Lasix every 8 hours. She is currently on 10 L high flow nasal cannula. PHYSICAL EXAM: Thorough physical exam not completed secondary to limited evaluation/examination and due to Covid19 ASSESSMENT: Covid 19 pneumonitis STEMI, status post PCI to RCA Coronary artery disease with previous PCI to LAD Peripheral vascular disease Hypertension Hyperlipidemia Diabetes mellitus Nicotine dependence PLAN: Continue current cardiac medications Decrease Lasix to 40mg IV q12 hours Monitor kidney function Daily weights Accurate I&O Further recommendations pending patient course Nurse practitioner note has been reviewed by physician. Signing provider agrees with the documented findings, assessment, and plan of care. Objective - Vital Signs Vital signs: Vital Signs Temp 97 F L 05/03/20 08:00 Pulse 56 L 05/03/20 08:00 Resp 16 05/03/20 08:00 BP 112/61 05/03/20 08:00 Pulse Ox 96 05/03/20 08:00 Intake & Output 05/02/20 05/03/20 05/03/20 18:59 06:59 18:59 Intake Total 586 Output Total 955 1900 900 Balance -369 -1900 -900 Weight 77.5 kg Intake: Oral 586 Output: Urine 955 1900 900 Other: Voiding Method Indwelling Catheter Indwelling Catheter Indwelling Catheter ABP, PAP, CO, CI - Last Documented Arterial Blood Pressure 150/59 - Labs CBC & Chem 7: 05/02/20 05:05 05/02/20 05:05 Labs: Abnormal Lab Results - Last 24 Hours (Table) 05/02/20 05/02/20 05/03/20 Range/Units 17:02 20:16 06:06 POC Glucose (mg/dL) 286 H 155 H 247 H (75-99) mg/dL 05/03/20 Range/Units 11:45 POC Glucose (mg/dL) 248 H (75-99) mg/dL
--- NOTE | 2020-05-03 15:38 | P.PN ---
Subjective Progress Note Date: 05/03/20 Principal diagnosis: CoVID 19 infection, non-ST segment elevation myocardial infarction This is a 65-year-old female with history of coronary artery disease, previous PCI of the first diagonal branch of LAD, PCI of mid to distal LAD in March of 2019, moderate to severe disease involving proximal RCA, and peripheral vessel occlusive disease and previous balloon angioplasty of left SFA. Multiple stents placed in her peripheral arteries including left common iliac and right external iliac patient is also known to have history of hypertension, diabetes, dyslipidemia, and tobacco dependence syndrome. Patient was recently in the hospital with covid 19 pneumonitis. She was discharged on April 21 to the [facility]. Patient received full treatment, her initial diagnosis was made on April 10. On 04/26/20, patient was brought into the ER with sudden onset of chest discomfort, she woke up at 2:30 AM in the morning experiencing severe chest pain. She was also complaining of shortness of breath, and felt that her heart was racing. Upon arrival she was on a nonrebreather, O2 saturation was 78%. EKG upon presentation showed deep T-wave inversion noted in the high lateral leads anteriorly with ST elevation noted inferiorly with underlying LVH. Chest x-ray clearly showed evidence of bilateral multifocal interstitial infiltrates. Remind you patient is still recovering from recent Covid 19 pneumonitis infection. Patient was bolused with heparin, received full aspirin and route, sublingual nitroglycerin was apparently given and a patch was applied. Patient underwent cardiac catheterization, and she had aspiration thrombectomy from the right coronary artery. Successful stenting of the ostial right coronary artery using a drug eluting stent, and she was sent to the ICU right after the procedure, patient was on a nonrebreather mask, extremely tachypneic upon arrival to the ICU, and I was made aware of this patient as soon as she arrived. I recommended immediate intubation and placement on mechanical ventilation. Patient is now on mechanical ventilation, she is on assist control rate of 20 volume is 450 FiO2 is 60% and I cut it down to 50% PEEP at 8. ABG this morning showed a pO2 of 78 pCO2 of 44 pH of 7.31. Patient is on propofol at 55 mcg/kg/m, IV fluids at KVO, patient was having intermittent episodes of hypotension, and I recommended emergent placement of right internal jugular central line, and an arterial line was also placed. Patient is definitely not ready for any weaning at this point. Chest x-ray is quite abnormal showing d iffuse interstitial infiltrates, most likely this is related to her recent Covid 19 pneumonitis, although the possibility of underlying pulmonary edema is not entirely ruled out. Echocardiogram showed good LV function, there was inferior hypokinesis. Labs showed slight leukocytosis, hemoglobin is 10.6, d-dimer was 0.99. Troponin was as high as 12. Reevaluated today on 04/28/20, patient remains intubated and mechanically ventilated. She is presently on assist control rate of 20 tidal volume is 450 FiO2 is 50% PEEP is 8. ABG showed a pO2 of 82 pCO2 of 41 pH of 7.37. Patient is now off norepinephrine, she is status post stent of the RCA. Patient had Covid 19 diagnosis on 04/10. And her chest x-ray showed diffuse interstitial infiltrates. This was felt to be all related to Covid 19 pneumonitis, although the possibility of underlying interstitial edema in addition to the pneumonitis is not entirely ruled out. Patient was awakened today, she was placed on a pressure support of 10 and CPAP, and she was noted to do fairly well with good tidal volume good respiratory rate in the low 20s, hence I recommended extubation of the patient to a nasal cannula. CBC is relatively normal. Electrolytes are normal. Creatinine is improving down to 1.66. LDH is better today 1132 C-reactive protein is also better today. Reevaluated today on 04/29/20, patient was extubated yesterday, remains in the ICU, tolerated the extubation well, however she remains on 10 L high flow nasal cannula. Patient continues to have significantly abnormal chest x-ray, it is not clear based on the chest x-ray whether the findings are truly related to Covid 19 pneumonitis, or related to ongoing interstitial edema. I did recommend a BNP level, and I did recommend increasing the Lasix to 40 mg IV push every 8 hours. Clinically the patient is feeling better, breathing a lot easier. Considering the patient's BNP level came back over 14,000, I will go ahead and continue aggressive diuresis on this patient, I am strongly suspecting them the findings are findings of congestive heart failure/diastolic in nature since the echocardiogram showed good LV function. Patient was reevaluated today on , remains in the ICU, patient was extubated 2 days ago, remains on diuretics, I believe the findings on the chest x-ray are findings of interstitial edema in addition to underlying Covid 19 pneumonitis. But considering the patient had significantly elevated BNP level, I went ahead and increased her diuretics, cut down her IV fluid to KVO, patient improved significantly over the last 24 hours, she is now on 10 L high flow nasal cannula, and her O2 saturations 96%. IV fluid is at KVO. Patient is feeling better, breathing easier, her renal functioning is improving. Creatinine today is 1.36. Patient is off clevidipine which I started yesterday at night as her blood pressure was elevated. Patient is not requiring any pressors. And again her chest x-ray continues to show interstitial edema but significantly improved over the last couple of days. My plan is to continue to monitor the patient in the ICU for the next 24 hours, and possibly transfer to a cardiac floor tomorrow. CBC and basic metabolic profile today are better again her renal functioning is improving in spite of aggressive diuresis. On 05/01/2020 patient seen in follow-up in the intensive care unit, she is currently on 8 L of oxygen per high flow nasal cannula, and she is satting about 97%, hemodynamically she stable, she is not on any nasal active drips. She is on 0.9 adenosine at a rate of 20 ML per hour. She is awake and alert, oriented 3, denies any chest pain, denies any worsening dyspnea, today's chest x-ray has been reviewed, showing patchy airspace infiltrates, maintained on IV Lasix 40 mg every 8 hours, she is maintaining negative fluid balance. On 05/02/2020 patient seen in follow-up in the intensive care unit. She remains extubated, tolerating it well so far, she is on 10 L of oxygen, with pulse ox of 94%, she is hemodynamically stable, she has had no fever or chills, she is breathing comfortably, today's chest x-ray still shows low lung volumes, patchy airspace infiltrates, patient is maintained on IV diuretics at 40 mg every 8 hours, and she is in negative fluid balance the total of -1.4 L over last 24 hours, IV fluids have been hep-locked, she is in sinus mechanism with a con trolled rate, she's been awaiting a bed for selective care since yesterday, she has remained stable overnight. No complaints of chest pain for worsening shortness of breath. The patient is seen today 05/03/2020 in follow-up in the selective care unit. She is currently sitting up in a chair at the bedside. Awake and alert in no acute distress. Maintaining O2 saturations in the 90s on 10 L high flow nasal cannula. She's afebrile. Hemodynamically stable. Urine culture positive for Enterococcus faecalis. Blood glucose 248. She remains on bronchodilators, IV Solu-Medrol. Antibiotics in the form of Levaquin. Objective - Vital Signs Vital signs: Vital Signs Temp 97 F L 05/03/20 08:00 Pulse 56 L 05/03/20 08:00 Resp 16 05/03/20 08:00 BP 112/61 05/03/20 08:00 Pulse Ox 96 05/03/20 08:00 Intake & Output 05/02/20 05/03/20 05/03/20 18:59 06:59 18:59 Intake Total 586 540 Output Total 955 1900 900 Balance -369 -1900 -360 Weight 77.5 kg Intake: Oral 586 540 Output: Urine 955 1900 900 Other: Voiding Method Indwelling Catheter Indwelling Catheter Indwelling Catheter ABP, PAP, CO, CI - Last Documented Arterial Blood Pressure 150/59 - Exam GENERAL EXAM: Alert, very pleasant, 65-year-old female patient, on 10 L of high flow oxygen, pulse ox is 96% comfortable in no apparent distress. HEAD: Normocephalic/atraumatic. EYES: Normal reaction of pupils, equal size. Conjunctiva pink, sclera white. NOSE: Clear with pink turbinates. THROAT: No erythema or exudates. NECK: No masses, no JVD, no thyroid enlargement, no adenopathy. CHEST: No chest wall deformity. Symmetrical expansion. LUNGS: Equal air entry with bibasilar crackles but no wheeze, rhonchi or dullness. CVS: Regular rate and rhythm, normal S1 and S2, no gallops, no murmurs, no rubs ABDOMEN: Soft, nontender. No hepatosplenomegaly, normal bowel sounds, no guarding or rigidity. EXTREMITIES: No clubbing, no edema, no cyanosis, 2+ pulses and upper and lower extremities. MUSCULOSKELETAL: Muscle strength and tone normal. SPINE: No scoliosis or deformity SKIN: No rashes CENTRAL NERVOUS SYSTEM: Alert and oriented -3. No focal deficits, tone is normal in all 4 extremities. PSYCHIATRIC: Alert and oriented -3. Appropriate affect. Intact judgment and insight. - Labs CBC & Chem 7: 05/02/20 05:05 05/02/20 05:05 Labs: Abnormal Lab Results - Last 24 Hours (Table) 05/02/20 05/02/20 05/03/20 Range/Units 17:02 20:16 06:06 POC Glucose (mg/dL) 286 H 155 H 247 H (75-99) mg/dL 05/03/20 Range/Units 11:45 POC Glucose (mg/dL) 248 H (75-99) mg/dL Assessment and Plan Assessment: #1. Acute hypoxic respiratory failure secondary to recent history of CoVID 19 pneumonitis in addition to acute exacerbation of diastolic CHF, requiring i ntubation and mechanical ventilation, was successfully weaned and extubated on 04/28/2020, currently maintaining O2 saturations in the 90s on 10 L high flow nasal cannula #2. Acute exacerbation of diastolic congestive heart failure #3. Acute ST elevated myocardial infarction/inferior wall PA, status post stenting of the RCA #4. Severe peripheral vessel occlusive disease and previous SFA atherectomy and balloon angioplasty #5. Morbid obesity #6. History of CVA and multiple TIAs #7. Severe coronary artery disease status post multiple stents #8. History of GERD #9. History of gastric ulcer disease #10. History of cerebral aneurysm requiring colectomy #11. History of nephrolithiasis #12. Type 2 diabetes mellitus #13. Tobacco dependence syndrome #14. Acute urinary tract infection with urine culture positive for Enterococcus faecalis. Plan: The patient was seen and evaluated by Dr. Matute We'll continue the current treatment plan for now Titrate down the FiO2 as tolerated We will continue to follow I, the cosigning physician, performed a history & physical examination of the patient. Lungs sounds bibasilar crackles. Maintaining good O2 saturations in the 90s on 10 L high flow nasal cannula. I discussed the assessment and plan of care with my nurse practitioner, Neli Mejia. I attest to the above note as dictated by her.
--- NOTE | 2020-05-03 16:22 | P.PN ---
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 Chest pain is associate with shortness of breath and a racing of heart. Radiating to the neck. On arrival patient was saturating at 78% and was placed on 100% nonrebreather. Patient was recently discharged from the hospital on April 21, 2020. Patient was treated for COVID-19 pneumonia and was discharged to [facility]. In the ER patient had EKG which showed ST elevations in the leads II, III and aVF. 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 Laboratory data showed WBC 17.4, hemoglobin 10.7 and platelets 208 Neutrophils 15.1 BUN 31 and creatinine 1.52 Troponin V 0.39, 12.7 AST 81 and ALT 121 Patient has been afebrile but requiring 100% nonrebreather. 05/02/2020 patient seen in follow-up in the intensive care unit; she is on 10 L of oxygen, with pulse ox of 94%, she is hemodynamically stable, she has had no fever or chills, she is breathing comfortably chest x-ray still shows low lung volumes, patchy airspace infiltrates patient is maintained on IV diuretics at 40 mg every 8 hours, and she is in negative fluid balance the total of -1.4 L over last 24 hours, IV fluids have been hep-locked, she is in sinus mechanism with a controlled rate, she's been awaiting a bed for selective care since yesterday, she has remained stable overnight. No complaints of chest pain for worsening shortness of breat Objective - Vital Signs Vital signs: Vital Signs Temp 98.7 F 05/02/20 12:00 Pulse 57 L 05/02/20 12:00 Resp 18 05/02/20 12:00 BP 119/83 05/02/20 12:00 Pulse Ox 95 05/02/20 12:00 Intake & Output 05/01/20 05/02/20 05/02/20 18:59 06:59 18:59 Intake Total 1118 1050 350 Output Total 1525 2100 555 Balance -407 -1050 -205 Weight 106.2 kg 106.8 kg Intake: IV 158 150 0.9NS 140 [place] flush 18 Levofloxacin 500Mg-D5w 100 Pmx 500 mg In Dextrose/ Water 1 100ml.bag @ 100 mls/hr IVPB Q24H ERASMO Rx#: [id number] cefTRIAXone 1 gm In 50 Sodium Chloride 0.9% 50 ml @ 100 mls/hr IVPB Q24H ERASMO Rx#:[id number] Oral 960 900 350 Output: Urine 1525 2100 555 Other: Voiding Method Indwelling Catheter Indwelling Catheter Indwelling Catheter ABP, PAP, CO, CI - Last Documented Arterial Blood Pressure 150/59 - Exam Patient is lying in the bed comfortably, no acute distress, awake alert and oriented.. HEENT: Normocephalic. Neck is supple. Pupils reactive. Nostrils clear. Oral cavity is moist. Ears reveal no drainage. Neck reveals no JVD, carotid bruits, or thyromegaly. CHEST EXAMINATION: Trachea is central. Symmetrical expansion. Bibasilar diminished air entry and coarse breath sounds.. CARDIAC: Normal S1, S2 with no gallops. No murmurs ABDOMEN: Soft. Bowel sounds normal. No organomegaly. No abdominal bruits. Extremities: reveal no edema. No clubbing or cyanosis Neurologically awake, alert, oriented x3 with well-coordinated movements. No focal deficits noted Skin: No rash or skin lesions. Psychiatric: Coperative. Nonsuicidal Musculoskeletal: No joint swelling or deformity. Normal range of motion. - Labs CBC & Chem 7: 05/02/20 05:05 05/02/20 05:05 Labs: Abnormal Lab Results - Last 24 Hours (Table) 05/01/20 05/01/20 05/01/20 Range/Units 16:20 16:25 21:52 RDW (11.5-15.5) % Neutrophils # (1.3-7.7) k/uL Carbon Dioxide (22-30) mmol/L BUN (7-17) mg/dL Creatinine (0.52-1.04) mg/dL Glucose (74-99) mg/dL POC Glucose (mg/dL) 322 H 311 H (75-99) mg/dL Urine Appearance Cloudy H (Clear) Urine Protein Trace H (Negative) Urine Glucose (UA) 1+ H (Negative) Urine Nitrite Positive H (Negative) Ur Leukocyte Esterase Moderate H (Negative) Urine WBC 8 H (0-5) /hpf Urine Bacteria Rare H (None) /hpf Urine Mucus Occasional H (None) /hpf Urine Yeast (Budding) Few H (None) /hpf 05/02/20 05/02/20 05/02/20 Range/Units 05:05 05:05 07:07 RDW 16.2 H (11.5-15.5) % Neutrophils # 8.3 H (1.3-7.7) k/uL Carbon Dioxide 31 H (22-30) mmol/L BUN 53 H (7-17) mg/dL Creatinine 1.18 H (0.52-1.04) mg/dL Glucose 247 H (74-99) mg/dL POC Glucose (mg/dL) 244 H (75-99) mg/dL Urine Appearance (Clear) Urine Protein (Negative) Urine Glucose (UA) (Negative) Urine Nitrite (Negative) Ur Leukocyte Esterase (Negative) Urine WBC (0-5) /hpf Urine Bacteria (None) /hpf Urine Mucus (None) /hpf Urine Yeast (Budding) (None) /hpf 05/02/20 Range/Units 11:36 RDW (11.5-15.5) % Neutrophils # (1.3-7.7) k/uL Carbon Dioxide (22-30) mmol/L BUN (7-17) mg/dL Creatinine (0.52-1.04) mg/dL Glucose (74-99) mg/dL POC Glucose (mg/dL) 164 H (75-99) mg/dL Urine Appearance (Clear) Urine Protein (Negative) Urine Glucose (UA) (Negative) Urine Nitrite (Negative) Ur Leukocyte Esterase (Negative) Urine WBC (0-5) /hpf Urine Bacteria (None) /hpf Urine Mucus (None) /hpf Urine Yeast (Budding) (None) /hpf Assessment and Plan Assessment: Acute hypoxic respiratory failure secondary to covid 19 pneumonitis.Currently high flow oxygen. Acute ST elevated AR/inferior wall AR with ST elevation in the leads II, III and aVF. Status post stenting of RCA. Enterococcus faecalis urinary tract infection Recent COVID-19 pneumonia and was discharged to [facility]. Coronary artery disease with history of stent placement in 2019 to LAD Severe peripheral vascular disease with history of SFA atherectomy and balloon a ngioplasty. Hypertension History of CVA and multiple TIAs History of AR Hyperlipidemia GERD History of gastric ulcers History of cerebral aneurysm requiring coiling. Chronic back pain history of multiple epidural injections Nephrolithiasis Diabetes type 2 [id number] Ongoing nicotine addiction DVT prophylaxis. Patient is on heparin drip. Plan: Patient is on high flow oxygen.Patient will be continued on telemetry monitoring. s/p stent placement. Continue with dual antiplatelet therapy. Continue with IV steroids and antibiotics in the form of ceftriaxone-->Levofloxacin. Continue with insulin sliding scale and pain management. Continue with breathing treatments and aspirin, Plavix. Pulmonary and cardiology is on board. Prognosis guarded at this time.
--- NOTE | 2020-05-03 16:26 | P.PN ---
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 Chest pain is associate with shortness of breath and a racing of heart. Radiating to the neck. On arrival patient was saturating at 78% and was placed on 100% nonrebreather. Patient was recently discharged from the hospital on April 21, 2020. Patient was treated for COVID-19 pneumonia and was discharged to [facility]. In the ER patient had EKG which showed ST elevations in the leads II, III and aVF. 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 Laboratory data showed WBC 17.4, hemoglobin 10.7 and platelets 208 Neutrophils 15.1 BUN 31 and creatinine 1.52 Troponin V 0.39, 12.7 AST 81 and ALT 121 Patient has been afebrile but requiring 100% nonrebreather. 05/02/2020 patient seen in follow-up in the intensive care unit; she is on 10 L of oxygen, with pulse ox of 94%, she is hemodynamically stable, she has had no fever or chills, she is breathing comfortably chest x-ray still shows low lung volumes, patchy airspace infiltrates patient is maintained on IV diuretics at 40 mg every 8 hours, and she is in negative fluid balance the total of -1.4 L over last 24 hours, IV fluids have been hep-locked, she is in sinus mechanism with a controlled rate, she's been awaiting a bed for selective care since yesterday, she has remained stable overnight. No complaints of chest pain for worsening shortness of breath 05/03/2020 Patient is seen and evaluated in follow-up in the selective care unit. She is currently sitting up in a chair at the bedside. Awake and alert in no acute distress. Maintaining O2 saturations in the 90s on 10 L high flow nasal cannula. She's afebrile. Hemodynamically stable. Urine culture positive for Enterococcus faecalis, sensitive to Levaquin. Blood glucose 248. She remains on bronchodilators, IV Solu-Medrol. Antibiotics in the form of Levaquin. We will continue with current plan of care; continue to wean oxygen as able Patient is being followed by cardiology and recommended to decrease Lasix to 40 mg IV every 12 hours; and tinea to monitor renal function and electrolytes along with daily weights and strict SHILPA's Objective - Vital Signs Vital signs: Vital Signs Temp 97 F L 05/03/20 08:00 Pulse 56 L 05/03/20 08:00 Resp 16 05/03/20 08:00 BP 112/61 05/03/20 08:00 Pulse Ox 96 05/03/20 15:36 Intake & Output 05/02/20 05/03/20 05/03/20 18:59 06:59 18:59 Intake Total 586 540 Output Total 955 1900 1175 Balance -369 -1900 -639 Weight 77.5 kg Intake: Oral 586 540 Output: Urine 955 1900 1175 Other: Voiding Method Indwelling Catheter Indwelling Catheter Indwelling Catheter ABP, PAP, CO, CI - Last Documented Arterial Blood Pressure 150/59 - Exam Patient is lying in the bed comfortably, no acute distress, awake alert and oriented.. HEENT: Normocephalic. Neck is supple. Pupils reactive. Nostrils clear. Oral cavity is moist. Ears reveal no drainage. Neck reveals no JVD, carotid bruits, or thyromegaly. CHEST EXAMINATION: Trachea is central. Symmetrical expansion. Bibasilar diminished air entry and coarse breath sounds.. CARDIAC: Normal S1, S2 with no gallops. No murmurs ABDOMEN: Soft. Bowel sounds normal. No organomegaly. No abdominal bruits. Extremities: reveal no edema. No clubbing or cyanosis Neurologically awake, alert, oriented x3 with well-coordinated movements. No focal deficits noted Skin: No rash or skin lesions. Psychiatric: Coperative. Nonsuicidal Musculoskeletal: No joint swelling or deformity. Normal range of motion. - Labs CBC & Chem 7: 05/02/20 05:05 05/02/20 05:05 Labs: Abnormal Lab Results - Last 24 Hours (Table) 05/02/20 05/02/20 05/03/20 Range/Units 17:02 20:16 06:06 POC Glucose (mg/dL) 286 H 155 H 247 H (75-99) mg/dL 05/03/20 Range/Units 11:45 POC Glucose (mg/dL) 248 H (75-99) mg/dL Assessment and Plan Assessment: Acute hypoxic respiratory failure secondary to covid 19 pneumonitis.Currently high flow oxygen. Acute ST elevated MN/inferior wall MN with ST elevation in the leads II, III and aVF. Status post stenting of RCA. Enterococcus faecalis urinary tract infection Recent COVID-19 pneumonia and was discharged to [facility]. Coronary artery disease with history of stent placement in 2019 to LAD Severe peripheral vascular disease with history of SFA atherectomy and balloon angioplasty. Hypertension History of CVA and multiple TIAs History of MN Hyperlipidemia GERD History of gastric ulcers History of cerebral aneurysm requiring coiling. Chronic back pain history of multiple epidural injections Nephrolithiasis Diabetes type 2 [id number] Ongoing nicotine addiction DVT prophylaxis. Patient is on heparin drip. Plan: Patient is on high flow oxygen.Patient will be continued on telemetry monitoring. s/p stent placement. Continue with dual antiplatelet therapy. Continue with IV steroids and antibiotics in the form of ceftriaxone-->Levofloxacin. Continue with insulin sliding scale and pain management. Continue with breathing treatments and aspirin, Plavix. Pulmonary and cardiology is on board. Prognosis guarded at this time.
[2020-05-03 16:30] LABS: Glucose,Whole Blood 138 mg/dL (75-99)
[2020-05-03] MEDS: HYDROcodone/APAP 5-325MG 1 EACH TAB PO PRN (17:35)
[2020-05-03 20:18] LABS: Glucose,Whole Blood 364 mg/dL (75-99)
[2020-05-03] MEDS ORDERED: INSULIN ASPART (NovoLOG) 100 UNIT/ML VIAL SQ STA (20:36)
[2020-05-03] MEDS: ATORVASTATIN 40 MG TAB PO SCH (20:41)
[2020-05-03] MEDS: ASCORBIC ACID 500 MG TAB PO SCH (20:41)
[2020-05-04] MEDS: NICOTINE 14MG/24HR PATCH TRANSDERM SCH (06:45)
[2020-05-04] MEDS: INSULIN ASPART (NovoLOG) 100 UNIT/ML VIAL SQ SCH ×4 (06:45→20:35)
[2020-05-04] MEDS: GABAPENTIN 400 MG CAP PO SCH ×3 (06:46→20:36)
[2020-05-04] MEDS: PANTOPRAZOLE 40 MG TABLET PO SCH (06:46)
[2020-05-04] MEDS: ALBUTEROL HFA INHALER INHALATION SCH ×4 (07:44→19:27)
[2020-05-04 08:31] LABS: Calcium 8.7 mg/dL (8.4-10.2); Potassium 3.8 mmol/L (3.5-5.1)
[2020-05-04] MEDS: METOPROLOL TARTRATE 25 MG TAB PO SCH ×2 (11:20→20:36)
[2020-05-04] MEDS: FOLIC ACID 1 MG TAB PO SCH (11:20)
[2020-05-04] MEDS: CHOLECALCIFEROL 400 UNIT TAB PO SCH (11:20)
[2020-05-04] MEDS: ZINC SULFATE 220 MG CAP PO SCH (11:20)
[2020-05-04] MEDS: ASPIRIN 81 MG PO SCH (11:20)
[2020-05-04] MEDS: amLODIPine 5 MG TAB PO SCH (11:20)
[2020-05-04] MEDS: SERTRALINE 100 MG TAB PO SCH (11:21)
[2020-05-04] MEDS: ISOSORBIDE MONONITRATE ER 30 MG TAB.ER.24H PO SCH (11:21)
[2020-05-04] MEDS: methylPREDNISolone SOD SUCCI 40 MG/ML 1 ML VIAL IV SCH ×2 (11:21→20:36)
[2020-05-04] MEDS: INSULIN DETEMIR (LEVEMIR) 100 UNIT/ML SYR SQ SCH (11:21)
[2020-05-04] MEDS: CLOPIDOGREL 75 MG TAB PO SCH (11:21)
[2020-05-04] MEDS: ENOXAPARIN 40 MG/0.4 ML SYRINGE SQ SCH (11:21)
[2020-05-04] MEDS: FUROSEMIDE 10 MG/ML 4 ML VIAL IV SCH (11:28)
--- NOTE | 2020-05-04 12:11 | P.PN ---
Subjective Progress Note Date: 05/04/20 CHIEF COMPLAINT: STEMI HISTORY OF PRESENT ILLNESS: This is a 65-year-old female who was admitted with a STEMI. She underwent PCI to RCA. She is positive for Covid. She remains on IV Lasix every 12 hours. She is currently on 10 L high flow nasal cannula. BUN 59. Creatinine 1.30. PHYSICAL EXAM: Thorough physical exam not completed secondary to limited evaluation/examination and due to Covid19 ASSESSMENT: Covid 19 pneumonitis STEMI, status post PCI to RCA Coronary artery disease with previous PCI to LAD Peripheral vascular disease Hypertension Hyperlipidemia Diabetes mellitus Nicotine dependence PLAN: Continue current cardiac medications Decrease Lasix to 40mg IV daily per Dr. Hernandez Monitor kidney function Daily weights Accurate I&O Further recommendations pending patient course Nurse practitioner note has been reviewed by physician. Signing provider agrees with the documented findings, assessment, and plan of care. Objective - Vital Signs Vital signs: Vital Signs Temp 97.6 F 05/04/20 08:00 Pulse 61 05/04/20 08:00 Resp 18 05/04/20 08:00 BP 164/86 05/04/20 08:00 Pulse Ox 96 05/04/20 08:00 Intake & Output 05/03/20 05/04/20 05/04/20 18:59 06:59 18:59 Intake Total 780 236 Output Total 1375 1125 500 Balance -595 -1125 -264 Weight 105.5 kg Intake: Oral 780 236 Output: Urine 1375 1125 500 Other: Voiding Method Indwelling Catheter Indwelling Catheter Indwelling Catheter # Voids 2 ABP, PAP, CO, CI - Last Documented Arterial Blood Pressure 150/59 - Labs CBC & Chem 7: 05/02/20 05:05 05/04/20 07:51 Labs: Abnormal Lab Results - Last 24 Hours (Table) 05/03/20 05/03/20 05/04/20 Range/Units 16:29 20:16 07:51 Carbon Dioxide 32 H (22-30) mmol/L BUN 59 H (7-17) mg/dL Creatinine 1.30 H (0.52-1.04) mg/dL Glucose 200 H (74-99) mg/dL POC Glucose (mg/dL) 138 H 364 H (75-99) mg/dL
--- NOTE | 2020-05-04 13:08 | PN ---
PROGRESS NOTE PULMONARY/CRITICAL CARE PROGRESS NOTE: DATE OF SERVICE: May 04, 2020 This is a 65-year-old female who was admitted back on April 26 with COVID-19 pneumonitis and acute hypoxemic respiratory failure. Currently, the patient is doing much better. She was moved out of the intensive care unit a couple days ago. She is still on 10 L high flow nasal cannula. The patient also has a history of acute exacerbation of diastolic CHF, which required intubation and mechanical ventilation. She was successfully extubated on April 28. Currently, she is doing better. The patient denies any pain in the chest. She denies any fever, chills. She is coughing a bit. Not producing any phlegm. She feels like her breathing is better even though her oxygen requirements have not really come down. Her saturations on the 10 L are 96%. Will drop the FiO2 down to 8 L high-flow. PHYSICAL EXAMINATION: VITAL SIGNS: Current vital signs are reviewed. Temperature 97.6, heart rate 61, respiratory rate 18, blood pressure 164/86, mean 112, saturations are 96% on 10 L high flow. GENERAL: Appears in no acute distress. Mild tachypnea. No conversational dyspnea or audible wheezing or use of accessory muscles. HEENT: Examination is grossly unremarkable. NECK: Supple. Full range of motion. No adenopathy. Neck veins are flat. CARDIOVASCULAR: Examination reveals regular rhythm and rate. Heart rate in the mid 80s. S1, S2 normal. No S3, S4, or murmur. LUNGS: Reveal a few scattered expiratory rhonchi and some basilar crackles. No wheezes. Breath sounds equal. ABDOMEN: Obese. Bowel sounds are heard. EXTREMITIES: Are intact. No cyanosis, clubbing, or edema. SKIN: Without rash. NEUROLOGIC: Examination is nonfocal. LAB DATA: Lab data is reviewed. Currently, sodium 140, potassium 3.8, chloride 99, CO2 of 32. Anion gap is 9. BUN and creatinine were 59 and 1.30. Microbiology showing evidence of Enterococcus faecalis in the urine. A chest x-ray was done. For some unclear reason cannot be viewed. CURRENT MEDICATIONS: Current medications are reviewed. The patient is currently on Tylenol, albuterol inhaler, Norvasc, ascorbic acid, aspirin, Lipitor, vitamin D3, Plavix, Lovenox, folic acid, Lasix, gabapentin, [place], Dilaudid, insulin, DuoNeb, Levaquin, Maalox, Solu- Medrol, metoprolol, Narcan, nicotine patch, sublingual nitroglycerin, Protonix, MiraLAX, potassium replacement, Zoloft, zinc, and Ambien. ASSESSMENT: 1. Acute hypoxemic respiratory failure, requiring intubation and mechanical ventilation, and successful extubation on April 28, secondary to COVID-19 pneumonitis, as well as acute exacerbation of diastolic congestive heart failure. 2. Acute exacerbation of diastolic congestive heart failure. 3. Acute ST-segment elevation myocardial infarction/inferior wall myocardial infarction, status post stenting of the right coronary artery. 4. Severe PVOD, with previous SFA atherectomy and balloon angioplasty. 5. Morbid obesity. 6. History of cerebrovascular accident and multiple transient ischemic attacks. 7. Severe coronary artery disease, status post multiple stents. 8. History of gastroesophageal reflux disease. 9. History of gastric ulcer disease. 10.Cerebral aneurysm, requiring coil. 11.History of nephrolithiasis. 12.Type 2 diabetes mellitus. 13.Tobacco dependence syndrome. 14.Acute urinary tract infection secondary to Enterococcus faecalis. PLAN: Currently, the patient's O2 was turned down from 10 L/minute down to 8. We will continue to follow. Chest x-ray was done, but cannot be viewed. We will wait for the official report. Medications appear to be appropriate. Any IV medications could be converted to oral. Additional recommendations and suggestions are forthcoming. HAIM / EDITHN: [id number] /
[2020-05-04] MEDS: ASCORBIC ACID 500 MG TAB PO SCH (20:36)
[2020-05-04] MEDS: ATORVASTATIN 40 MG TAB PO SCH (20:36)
[2020-05-04] MEDS: LEVOFLOXACIN 250 MG TAB PO SCH (20:38)
[2020-05-05] MEDS: NICOTINE 14MG/24HR PATCH TRANSDERM SCH (06:32)
[2020-05-05] MEDS: PANTOPRAZOLE 40 MG TABLET PO SCH (06:32)
[2020-05-05] MEDS: INSULIN ASPART (NovoLOG) 100 UNIT/ML VIAL SQ SCH ×4 (06:33→20:21)
[2020-05-05] MEDS: GABAPENTIN 400 MG CAP PO SCH ×3 (06:33→20:20)
[2020-05-05] MEDS: ASPIRIN 81 MG PO SCH (08:19)
[2020-05-05] MEDS: amLODIPine 5 MG TAB PO SCH (08:19)
[2020-05-05] MEDS: FOLIC ACID 1 MG TAB PO SCH (08:20)
[2020-05-05] MEDS: CLOPIDOGREL 75 MG TAB PO SCH (08:20)
[2020-05-05] MEDS: CHOLECALCIFEROL 400 UNIT TAB PO SCH (08:20)
[2020-05-05] MEDS: ENOXAPARIN 40 MG/0.4 ML SYRINGE SQ SCH (08:20)
[2020-05-05] MEDS: METOPROLOL TARTRATE 25 MG TAB PO SCH ×2 (08:20→20:20)
[2020-05-05] MEDS: methylPREDNISolone SOD SUCCI 40 MG/ML 1 ML VIAL IV SCH ×2 (08:20→20:20)
[2020-05-05] MEDS: ISOSORBIDE MONONITRATE ER 30 MG TAB.ER.24H PO SCH (08:21)
[2020-05-05] MEDS: ZINC SULFATE 220 MG CAP PO SCH (08:21)
[2020-05-05] MEDS: INSULIN DETEMIR (LEVEMIR) 100 UNIT/ML SYR SQ SCH (08:21)
[2020-05-05] MEDS: SERTRALINE 100 MG TAB PO SCH (08:21)
[2020-05-05 08:39] LABS: Calcium 8.7 mg/dL (8.4-10.2); Potassium 3.7 mmol/L (3.5-5.1)
[2020-05-05] MEDS: ALBUTEROL HFA INHALER INHALATION SCH ×4 (08:57→19:48)
[2020-05-05] MEDS ORDERED: FUROSEMIDE 10 MG/ML 4 ML VIAL IV SCH (09:00)
--- NOTE | 2020-05-05 11:22 | P.PN ---
Subjective Progress Note Date: 05/05/20 CHIEF COMPLAINT: STEMI HISTORY OF PRESENT ILLNESS: This is a 65-year-old female who was admitted with a STEMI. She underwent PCI to RCA. She is positive for Covid. She remains on IV Lasix daily. She is currently on 8 L high flow nasal cannula. BUN 57. Crea tinine 1.33. PHYSICAL EXAM: Thorough physical exam not completed secondary to limited evaluation/examination and due to Covid19 ASSESSMENT: Covid 19 pneumonitis STEMI, status post PCI to RCA Coronary artery disease with previous PCI to LAD Peripheral vascular disease Hypertension Hyperlipidemia Diabetes mellitus Nicotine dependence PLAN: Continue current cardiac medications Change lasix to 40mg PO daily Monitor kidney function Daily weights Accurate I&O Further recommendations pending patient course Nurse practitioner note has been reviewed by physician. Signing provider agrees with the documented findings, assessment, and plan of care. Objective - Vital Signs Vital signs: Vital Signs Temp 97.9 F 05/05/20 04:00 Pulse 50 L 05/05/20 04:00 Resp 17 05/05/20 04:00 BP 112/67 05/05/20 04:00 Pulse Ox 93 L 05/05/20 08:57 Intake & Output 05/04/20 05/05/20 05/05/20 18:59 06:59 18:59 Intake Total 436 240 Output Total 1850 800 Balance -1414 -800 240 Weight 104.5 kg Intake: Oral 436 240 Output: Urine 1850 800 Other: Voiding Method Indwelling Catheter Indwelling Catheter ABP, PAP, CO, CI - Last Documented Arterial Blood Pressure 150/59 - Labs CBC & Chem 7: 05/02/20 05:05 05/05/20 07:46 Labs: Abnormal Lab Results - Last 24 Hours (Table) 05/05/20 Range/Units 07:46 Carbon Dioxide 32 H (22-30) mmol/L BUN 57 H (7-17) mg/dL Creatinine 1.33 H (0.52-1.04) mg/dL Glucose 169 H (74-99) mg/dL
--- NOTE | 2020-05-05 13:38 | PN ---
PROGRESS NOTE PULMONARY/CRITICAL CARE PROGRESS NOTE DATE OF SERVICE: May 05, 2020. HISTORY: A 65-year-old female who was admitted back on April 26 with COVID-19 pneumonitis and acute hypoxemic respiratory failure. Currently, the patient is on high-flow nasal O2 at 8 L/minute. She had been on 10 L. She also has a history of acute exacerbation of diastolic CHF, which required intubation and mechanical ventilation. She was successfully extubated on April 28. All in all, doing better. She looks clinically better than her oxygen requirements. Her saturations today on 8 L are right around 90 to 92 percent. PHYSICAL EXAMINATION: VITAL SIGNS: Current vital signs are reviewed. Temperature is 97.3 heart rate 54, respiratory rate 18, blood pressure 101/58 mean 72, 8 L saturations 92 to 95 percent. Appears in no acute distress. HEENT: Examination is grossly unremarkable. Nasal O2 noted. NECK: Supple. Full range of motion. No adenopathy, thyromegaly or neck vein distention. CARDIOVASCULAR: Examination reveals regular rhythm and rate. Heart rate 54 beats per minute. S1, S2 normal. There is no murmur. Heart sounds distant. LUNGS: A few scattered rhonchi. No wheezes or crackles. ABDOMEN: Obese. Bowel sounds are heard. EXTREMITIES: Intact. No significant cyanosis, clubbing, or edema. SKIN: Without rash. NEUROLOGIC: Examination is brief but nonfocal. LABS: Reveals sodium 139, potassium 3.7, chloride 101, CO2 of 32, anion gap is 6. BUN and creatinine were 57 and 1.33. Microbiology showing evidence of Enterococcus faecalis in the urine. No recent chest x-ray. The last chest x-ray was yesterday. MEDICATIONS: Reviewed. The patient is currently on Tylenol, albuterol inhaler, amlodipine, vitamin C, aspirin, Lipitor, vitamin D3, Plavix, Lovenox, folic acid, Lasix, gabapentin, [place], Dilaudid, insulin, DuoNeb, Imdur, Levaquin, Maalox, Solu-Medrol, metoprolol, Narcan, nicotine patch, nitroglycerin, Protonix, MiraLAX, potassium replacement, Zoloft, zinc, and Ambien. ASSESSMENT: 1. Acute hypoxemic respiratory failure, requiring intubation and mechanical ventilation, with successful extubation on April 28, secondary to COVID- 19 pneumonitis as well as an acute exacerbation of the patient's diastolic congestive heart failure. 2. Acute exacerbation of diastolic congestive heart failure. 3. Acute ST-segment elevation myocardial infarction/inferior wall, status post stenting of the right coronary artery. 4. Severe PVOD with previous SFA atherectomy and balloon angioplasty. 5. Morbid obesity. 6. History of CVA and multiple TIAs. 7. Severe CAD, status post multiple stents. 8. History of gastroesophageal reflux disease. 9. History of gastric ulcer disease. 10.Cerebral aneurysm, which required coil placement. 11.History of nephrolithiasis. 12.Type 2 diabetes. 13.Tobacco dependence syndrome. 14.Enterococcus faecalis urinary tract infection, currently on Levaquin. PLAN: Currently, the patient is doing better. She has been weaned down to 8 L. His saturations are in the low 90s. Eventually, she will be able to be weaned down further. When she gets down between 4-5 L, she could likely be discharged home. She is currently on Levaquin for urinary tract infection. The rest of the medications look okay. We will continue to follow. Prognosis is guarded. MMODL / IJN: [id number] / KAYLA
--- NOTE | 2020-05-05 14:30 | P.PN ---
Subjective Progress Note Date: 05/04/20 Principal diagnosis: Acute ST elevated UT/inferior wall UT with ST elevation in the leads II, III and aVF Recent COVID-19 pneumonia 65-year-old female with a known history of coronary artery disease with a stent placement, COPD, history of CVA/TIA, diabetes type 2, hyperlipidemia, history of gastric ulcers, history of [employer] aneurysm with bleeding requiring coiling, chronic back pain with history of epidural injections, nephrolithiasis and currently everyday smoker, anxiety/depression and other multiple medical problems, peripheral vascular disease with left SFA atherectomy and balloon angioplasty presents to ER with the complaints of chest discomfort mainly retrosternal re gion and woke her up from sleep at around 2:30 AM which she felt like a panic attack. Chest pain is associate with shortness of breath and a racing of heart. Radiating to the neck. On arrival patient was saturating at 78% and was placed on 100% nonrebreather. Patient was recently discharged from the hospital on April 21, 2020. Patient was treated for COVID-19 pneumonia and was discharged to [facility]. In the ER patient had EKG which showed ST elevations in the leads II, III and aVF. Patient was immediately taken to [facility]. Laboratory data showed WBC 17.4, hemoglobin 10.7 and platelets 208 Neutrophils 15.1 BUN 31 and creatinine 1.52 Troponin V 0.39, 12.7 AST 81 and ALT 121 Patient has been afebrile but requiring 100% nonrebreather. 05/02/2020 patient seen in follow-up in the intensive care unit; she is on 10 L of oxygen, with pulse ox of 94%, she is hemodynamically stable, she has had no fever or chills, she is breathing comfortably chest x-ray still shows low lung volumes, patchy airspace infiltrates patient is maintained on IV diuretics at 40 mg every 8 hours, and she is in negative fluid balance the total of -1.4 L over last 24 hours, IV fluids have been hep-locked, she is in sinus mechanism with a controlled rate, she's been awaiting a bed for selective care since yesterday, she has remained stable overnight. No complaints of chest pain for worsening shortness of breath 05/03/2020 Patient is seen and evaluated in follow-up in the selective care unit. She is currently sitting up in a chair at the bedside. Awake and alert in no acute distress. Maintaining O2 saturations in the 90s on 10 L high flow nasal cannula. She's afebrile. Hemodynamically stable. Urine culture positive for Enterococcus faecalis, sensitive to Levaquin. Blood glucose 248. She remains on bronchodilators, IV Solu-Medrol. Antibiotics in the form of Levaquin. We will continue with current plan of care; continue to wean oxygen as able Patient is being followed by cardiology and recommended to decrease Lasix to 40 mg IV every 12 hours; and tinea to monitor renal function and electrolytes along with daily weights and strict SHILPA's 05/04/2020 Patient is seen and evaluated for follow-up in selective care unit; remains at 96% on on 10 L at bedtime and see; patient denies any complaint of chest pain and reports improvement in breathing Vital signs are stable with temperature of 97.6, pulse 61, respiration 18 and blood pressure 164/86 Pulmonary service on board and recommending to turn "down to 8 L and continue to monitor pulse ox closely Patient is being followed by cardiology for acute CHF and STEMI; cardiology recommending to decrease Lasix to 40 mg IV daily; monitor strict SHILPA's, daily weights, renal function and electrolytes Objective - Vital Signs Vital signs: Vital Signs Temp 97.8 F 05/04/20 12:00 Pulse 59 L 05/04/20 12:00 Resp 18 05/04/20 12:00 BP 154/84 05/04/20 12:00 Pulse Ox 92 L 05/04/20 12:00 Intake & Output 05/03/20 05/04/20 05/04/20 18:59 06:59 18:59 Intake Total 780 436 Output Total 1375 1125 500 Balance -595 -1125 -64 Weight 105.5 kg Intake: Oral 780 436 Output: Urine 1375 1125 500 Other: Voiding Method Indwelling Catheter Indwelling Catheter Indwelling Catheter # Voids 2 ABP, PAP, CO, CI - Last Documented Arterial Blood Pressure 150/59 - Exam Patient is lying in the bed comfortably, no acute distress, awake alert and oriented.. HEENT: Normocephalic. Neck is supple. Pupils reactive. Nostrils clear. Oral cavity is moist. Ears reveal no drainage. Neck reveals no JVD, carotid bruits, or thyromegaly. CHEST EXAMINATION: Trachea is central. Symmetrical expansion. Bibasilar diminish ed air entry and coarse breath sounds.. CARDIAC: Normal S1, S2 with no gallops. No murmurs ABDOMEN: Soft. Bowel sounds normal. No organomegaly. No abdominal bruits. Extremities: reveal no edema. No clubbing or cyanosis Neurologically awake, alert, oriented x3 with well-coordinated movements. No focal deficits noted Skin: No rash or skin lesions. Psychiatric: Coperative. Nonsuicidal Musculoskeletal: No joint swelling or deformity. Normal range of motion. - Labs CBC & Chem 7: 05/02/20 05:05 05/05/20 07:46 Labs: Abnormal Lab Results - Last 24 Hours (Table) 05/03/20 05/03/20 05/04/20 Range/Units 16:29 20:16 07:51 Carbon Dioxide 32 H (22-30) mmol/L BUN 59 H (7-17) mg/dL Creatinine 1.30 H (0.52-1.04) mg/dL Glucose 200 H (74-99) mg/dL POC Glucose (mg/dL) 138 H 364 H (75-99) mg/dL Assessment and Plan Assessment: Acute hypoxic respiratory failure secondary to covid 19 pneumonitis.Currently high flow oxygen. Acute ST elevated UT/inferior wall UT with ST elevation in the leads II, III and aVF. Status post stenting of RCA. Enterococcus faecalis urinary tract infection Recent COVID-19 pneumonia and was discharged to [facility]. Coronary artery disease with history of stent placement in 2019 to LAD Severe peripheral vascular disease with history of SFA atherectomy and balloon angioplasty. Hypertension History of CVA and multiple TIAs History of UT Hyperlipidemia GERD History of gastric ulcers History of cerebral aneurysm requiring coiling. Chronic back pain history of multiple epidural injections Nephrolithiasis Diabetes type 2 [id number] Ongoing nicotine addiction DVT prophylaxis. Patient is on heparin drip. Plan: Patient is on high flow oxygen.Patient will be continued on telemetry monitoring. s/p stent placement. Continue with dual antiplatelet therapy. Continue with IV steroids and antibiotics in the form of ceftriaxone-->Levofloxacin. Continue with insulin sliding scale and pain management. Continue with breathing treatments and aspirin, Plavix. Pulmonary and cardiology is on board. Prognosis guarded at this time.
--- NOTE | 2020-05-05 14:33 | P.PN ---
Subjective Progress Note Date: 05/05/20 Principal diagnosis: Acute ST elevated KS/inferior wall KS with ST elevation in the leads II, III and aVF Recent COVID-19 pneumonia 65-year-old female with a known history of coronary artery disease with a stent placement, COPD, history of CVA/TIA, diabetes type 2, hyperlipidemia, history of gastric ulcers, history of [employer] aneurysm with bleeding requiring coiling, chronic back pain with history of epidural injections, nephrolithiasis and currently everyday smoker, anxiety/depression and other multiple medical problems, peripheral vascular disease with left SFA atherectomy and balloon angioplasty presents to ER with the complaints of chest discomfort mainly retrosternal re gion and woke her up from sleep at around 2:30 AM which she felt like a panic attack. Chest pain is associate with shortness of breath and a racing of heart. Radiating to the neck. On arrival patient was saturating at 78% and was placed on 100% nonrebreather. Patient was recently discharged from the hospital on April 21, 2020. Patient was treated for COVID-19 pneumonia and was discharged to [facility]. In the ER patient had EKG which showed ST elevations in the leads II, III and aVF. Patient was immediately taken to [facility]. Laboratory data showed WBC 17.4, hemoglobin 10.7 and platelets 208 Neutrophils 15.1 BUN 31 and creatinine 1.52 Troponin V 0.39, 12.7 AST 81 and ALT 121 Patient has been afebrile but requiring 100% nonrebreather. 05/02/2020 patient seen in follow-up in the intensive care unit; she is on 10 L of oxygen, with pulse ox of 94%, she is hemodynamically stable, she has had no fever or chills, she is breathing comfortably chest x-ray still shows low lung volumes, patchy airspace infiltrates patient is maintained on IV diuretics at 40 mg every 8 hours, and she is in negative fluid balance the total of -1.4 L over last 24 hours, IV fluids have been hep-locked, she is in sinus mechanism with a controlled rate, she's been awaiting a bed for selective care since yesterday, she has remained stable overnight. No complaints of chest pain for worsening shortness of breath 05/03/2020 Patient is seen and evaluated in follow-up in the selective care unit. She is currently sitting up in a chair at the bedside. Awake and alert in no acute distress. Maintaining O2 saturations in the 90s on 10 L high flow nasal cannula. She's afebrile. Hemodynamically stable. Urine culture positive for Enterococcus faecalis, sensitive to Levaquin. Blood glucose 248. She remains on bronchodilators, IV Solu-Medrol. Antibiotics in the form of Levaquin. We will continue with current plan of care; continue to wean oxygen as able Patient is being followed by cardiology and recommended to decrease Lasix to 40 mg IV every 12 hours; and tinea to monitor renal function and electrolytes along with daily weights and strict SHILPA's 05/04/2020 Patient is seen and evaluated for follow-up in selective care unit; remains at 96% on on 10 L HFNC; patient denies any complaint of chest pain and reports improvement in breathing Vital signs are stable with temperature of 97.6, pulse 61, respiration 18 and blood pressure 164/86 Pulmonary service on board and recommending to turn "down to 8 L and continue to monitor pulse ox closely Patient is being followed by cardiology for acute CHF and STEMI; cardiology recommending to decrease Lasix to 40 mg IV daily; monitor strict SHILPA's, daily weights, renal function and electrolytes 05/05/2020; patient's is seen and evaluated at bedside; remains on 8 L high flow nasal cannula; patient is able to maintain SpO2 greater than 90% Vital signs are reviewed with a temperature of 97.3, pulse 54, respiration 18 and blood pressure 101/58 Labs are reviewed with chemical profile sodium 138, potassium of 3.7, chloride 101 and bicarb of 32 with B UN/creatinine of 57/1.33; urine is positive for enterococcus Patient is currently on Levaquin; pulmonary on board and recommending to continue to wean oxygen with a plan to discharge home when oxygen could be weaned down to 4-5 L Objective - Vital Signs Vital signs: Vital Signs Temp 97.3 F L 05/05/20 08:00 Pulse 52 L 05/05/20 11:50 Resp 18 05/05/20 12:00 BP 118/36 05/05/20 11:50 Pulse Ox 98 05/05/20 12:00 Intake & Output 05/04/20 05/05/20 05/05/20 18:59 06:59 18:59 Intake Total 436 240 Output Total 1850 800 800 Balance -1414 -800 -457 Weight 104.5 kg Intake: Oral 436 240 Output: Urine 1850 800 800 Other: Voiding Method Indwelling Catheter Indwelling Catheter Indwelling Catheter ABP, PAP, CO, CI - Last Documented Arterial Blood Pressure 150/59 - Exam Patient is lying in the bed comfortably, no acute distress, awake alert and oriented.. HEENT: Normocephalic. Neck is supple. Pupils reactive. Nostrils clear. Oral cavity is moist. Ears reveal no drainage. Neck reveals no JVD, carotid bruits, or thyromegaly. CHEST EXAMINATION: Trachea is central. Symmetrical expansion. Bibasilar diminished air entry and coarse breath sounds.. CARDIAC: Normal S1, S2 with no gallops. No murmurs ABDOMEN: Soft. Bowel sounds normal. No organomegaly. No abdominal bruits. Extremities: reveal no edema. No clubbing or cyanosis Neurologically awake, alert, oriented x3 with well-coordinated movements. No focal deficits noted Skin: No rash or skin lesions. Psychiatric: Coperative. Nonsuicidal Musculoskeletal: No joint swelling or deformity. Normal range of motion. - Labs CBC & Chem 7: 05/02/20 05:05 05/05/20 07:46 Labs: Abnormal Lab Results - Last 24 Hours (Table) 05/05/20 Range/Units 07:46 Carbon Dioxide 32 H (22-30) mmol/L BUN 57 H (7-17) mg/dL Creatinine 1.33 H (0.52-1.04) mg/dL Glucose 169 H (74-99) mg/dL Assessment and Plan Assessment: Acute hypoxic respiratory failure secondary to covid 19 pneumonitis.Currently high flow oxygen. Acute ST elevated KS/inferior wall KS with ST elevation in the leads II, III and aVF. Status post stenting of RCA. Enterococcus faecalis urinary tract infection Recent COVID-19 pneumonia and was discharged to [facility]. Coronary artery disease with history of stent placement in 2019 to LAD Severe peripheral vascular disease with history of SFA atherectomy and balloon angioplasty. Hypertension History of CVA and multiple TIAs History of KS Hyperlipidemia GERD History of gastric ulcers History of cerebral aneurysm requiring coiling. Chronic back pain history of multiple epidural injections Nephrolithiasis Diabetes type 2 [id number] Ongoing nicotine addiction DVT prophylaxis. Patient is on heparin drip. Plan: Patient is on high flow oxygen.Patient will be continued on telemetry monitoring. s/p stent placement. Continue with dual antiplatelet therapy. Continue with IV steroids and antibiotics in the form of ceftriaxone-->Levofloxacin. Continue with insulin sliding scale and pain management. Continue with breathing treatments and aspirin, Plavix. Pulmonary and cardiology is on board. Prognosis guarded at this time.
[2020-05-05] MEDS: ATORVASTATIN 40 MG TAB PO SCH (20:20)
[2020-05-05] MEDS: ASCORBIC ACID 500 MG TAB PO SCH (20:20)
[2020-05-05] MEDS: LEVOFLOXACIN 250 MG TAB PO SCH (20:22)
[2020-05-05] MEDS: HYDROcodone/APAP 5-325MG 1 EACH TAB PO PRN (20:25)
[2020-05-06] MEDS: NICOTINE 14MG/24HR PATCH TRANSDERM SCH (06:08)
[2020-05-06] MEDS: GABAPENTIN 400 MG CAP PO SCH ×3 (06:08→21:55)
[2020-05-06] MEDS: INSULIN ASPART (NovoLOG) 100 UNIT/ML VIAL SQ SCH ×4 (06:09→21:50)
[2020-05-06] MEDS: HYDROcodone/APAP 5-325MG 1 EACH TAB PO PRN ×2 (06:09→22:07)
[2020-05-06] MEDS: PANTOPRAZOLE 40 MG TABLET PO SCH (06:09)
[2020-05-06] MEDS: SERTRALINE 100 MG TAB PO SCH (08:09)
[2020-05-06] MEDS: ZINC SULFATE 220 MG CAP PO SCH (08:09)
[2020-05-06] MEDS: ISOSORBIDE MONONITRATE ER 30 MG TAB.ER.24H PO SCH (08:09)
[2020-05-06] MEDS: METOPROLOL TARTRATE 25 MG TAB PO SCH (08:09)
[2020-05-06] MEDS: ASPIRIN 81 MG PO SCH (08:09)
[2020-05-06] MEDS: amLODIPine 5 MG TAB PO SCH (08:10)
[2020-05-06] MEDS: ENOXAPARIN 40 MG/0.4 ML SYRINGE SQ SCH (08:10)
[2020-05-06] MEDS: CLOPIDOGREL 75 MG TAB PO SCH (08:10)
[2020-05-06] MEDS: FOLIC ACID 1 MG TAB PO SCH (08:10)
[2020-05-06] MEDS: methylPREDNISolone SOD SUCCI 40 MG/ML 1 ML VIAL IV SCH (08:10)
[2020-05-06] MEDS: INSULIN DETEMIR (LEVEMIR) 100 UNIT/ML SYR SQ SCH (08:10)
[2020-05-06] MEDS: FUROSEMIDE 40 MG TAB PO SCH (08:10)
[2020-05-06] MEDS: CHOLECALCIFEROL 400 UNIT TAB PO SCH (08:10)
[2020-05-06] MEDS: SYMBICORT 160-4.5 MCG INHALER INHALATION SCH ×2 (09:30→19:22)
[2020-05-06] MEDS: ALBUTEROL HFA INHALER INHALATION SCH ×4 (09:31→19:20)
--- NOTE | 2020-05-06 12:24 | P.PN ---
Subjective Progress Note Date: 05/06/20 CHIEF COMPLAINT: STEMI HISTORY OF PRESENT ILLNESS: This is a 65-year-old female who was admitted with a STEMI. She underwent PCI to RCA. She is positive for Covid. She was transitioned to oral Lasix yesterday. She is currently on 8 L high flow nasal cannula. Patient is bradycardic with heart rate in the 40s. PHYSICAL EXAM: Thorough physical exam not completed secondary to limited evaluation/examination and due to Covid19 ASSESSMENT: Covid 19 pneumonitis STEMI, status post PCI to RCA Coronary artery disease with previous PCI to LAD Peripheral vascular disease Hypertension Hyperlipidemia Diabetes mellitus Nicotine dependence PLAN: Decrease metoprolol to 12.5 mg twice a day second due to bradycardia Continue oral Lasix Monitor kidney function Daily weights Accurate I&O Further recommendations pending patient course Nurse practitioner note has been reviewed by physician. Signing provider agrees with the documented findings, assessment, and plan of care. Objective - Vital Signs Vital signs: Vital Signs Temp 97.9 F 05/06/20 07:18 Pulse 48 L 05/06/20 07:18 Resp 16 05/06/20 07:18 BP 136/73 05/06/20 07:18 Pulse Ox 94 L 05/06/20 07:18 Intake & Output 05/05/20 05/06/20 05/06/20 18:59 06:59 18:59 Intake Total 468 420 Output Total 1200 1200 Balance -732 -1200 420 Weight 107 kg Intake: Oral 468 420 Output: Urine 1200 1200 Other: Voiding Method Indwelling Catheter Indwelling Catheter Indwelling Catheter ABP, PAP, CO, CI - Last Documented Arterial Blood Pressure 150/59 - Labs CBC & Chem 7: 05/02/20 05:05 05/05/20 07:46
--- NOTE | 2020-05-06 12:35 | PN ---
PROGRESS NOTE PULMONARY/CRITICAL CARE PROGRESS NOTE: DATE OF SERVICE: May 06, 2020. INTERVAL HISTORY: This is a 65-year-old female who was admitted back on April 26 with COVID-19 pneumonitis and acute hypoxemic respiratory failure. The patient has been on high-flow oxygen, although it has been lowered recently. Yesterday, she was on 8 L. A couple days ago, she was on 10 L. Today, she is on 4 L. She is feeling much better. In fact, all along this hospitalization, she has not felt horrible. She was for a brief time intubated, mechanically ventilated, but was successfully extubated on April 28. She had diastolic CHF at that time along with a COVID-19 infection. Clinically, she looks good. She is saturating about 90-92 percent on 4 L. From our perspective, she could be discharged home. We did let the primary service and the nurse know. PHYSICAL EXAMINATION: VITAL SIGNS: Current vital signs include temperature 97.9, heart rate 52, respiratory rate 16, blood pressure 136/73, mean 94, 4 L saturation 94%. Appears in no acute distress. HEENT: Examination is grossly unremarkable. NECK: Supple. Full range of motion. No adenopathy or thyromegaly. Neck veins are flat. CARDIOVASCULAR: Examination reveals regular rhythm and rate. Heart rate is in the mid 50s. S1, S2 normal. Heart sounds are distant. LUNGS: Reveal diffuse coarse rhonchi. Breath sounds equal. No crackles. ABDOMEN: Soft but obese. Bowel sounds are heard. EXTREMITIES: Intact. No edema. SKIN: Without rash. NEUROLOGIC: Examination is brief but nonfocal. LABORATORY DATA: No labs from today. Microbiology showing evidence of Enterococcus faecalis in the urine from April 26. X-RAY: No recent chest x-ray. The last chest x-ray was done on . MEDICATIONS: Current medications reviewed. The patient is on Tylenol, albuterol inhaler, amlodipine, vitamin C, aspirin, Lipitor, vitamin D3, Plavix, Lovenox, folic acid, Lasix, Neurontin, [place], Dilaudid, insulin, DuoNeb, Imdur, Levaquin, Maalox, Solu- Medrol, metoprolol, Narcan, nicotine patch, nitroglycerin tablets, Protonix, MiraLAX, potassium replacement, Zoloft, zinc, and Ambien. ASSESSMENT: 1. Acute hypoxemic respiratory failure requiring intubation and mechanical ventilation with successful extubation on April 28, secondary to COVID-19 pneumonitis as well as acute exacerbation of the patient's diastolic congestive heart failure. 2. Acute exacerbation of diastolic congestive heart failure, recovered. 3. Acute ST-segment elevation myocardial infarction/inferior wall, status post stenting of the right coronary artery. 4. Severe peripheral vascular occlusive disease, with previous atherectomy and balloon angioplasty. 5. Morbid obesity. 6. History of cerebrovascular accident and multiple transient ischemic attacks. 7. Severe coronary artery disease, status post multiple stents. 8. History of gastroesophageal reflux disease. 9. History of gastric ulcer. 10.Cerebral aneurysm, status post coiling. 11.History of nephrolithiasis. 12.Type 2 diabetes mellitus. 13.Tobacco dependence syndrome. 14.Enterococcus faecalis urinary tract infection, currently on Levaquin. PLAN: The patient was weaned down to 4 L. From our perspective she could be discharged. She is feeling much improved. No additional recommendations are made. We will continue to follow. Medications are adjusted accordingly. MMODL / IJN: [id number] /
--- NOTE | 2020-05-06 13:59 | XR ---
EXAMINATION TYPE: XR chest 1V portable DATE OF EXAM: 05/04/2020 COMPARISON: Prior chest x-ray 05/02/2020 HISTORY: Shortness of breath TECHNIQUE: Single frontal view of the chest is obtained. FINDINGS: Lung volumes are low. Patchy densities present in the bilateral lungs. Heart appears enlar ged. Thoracic cord stimulator lead is stable. No evident pneumothorax or pleural effusion. IMPRESSION: Expiratory rotated exam. Correlate for pneumonia, edema.
[2020-05-06] MEDS: ASCORBIC ACID 500 MG TAB PO SCH (21:55)
[2020-05-06] MEDS: ATORVASTATIN 40 MG TAB PO SCH (21:55)
[2020-05-06] MEDS: METOPROLOL TARTRATE 12.5 MG TAB PO SCH (22:07)
[2020-05-06] MEDS: LEVOFLOXACIN 250 MG TAB PO SCH (23:00)
[2020-05-07] MEDS: PANTOPRAZOLE 40 MG TABLET PO SCH (06:35)
[2020-05-07] MEDS: GABAPENTIN 400 MG CAP PO SCH ×3 (06:35→21:12)
[2020-05-07] MEDS: NICOTINE 14MG/24HR PATCH TRANSDERM SCH (06:35)
[2020-05-07] MEDS: INSULIN ASPART (NovoLOG) 100 UNIT/ML VIAL SQ SCH ×4 (06:44→21:12)
[2020-05-07] MEDS: CLOPIDOGREL 75 MG TAB PO SCH (08:58)
[2020-05-07] MEDS: ASPIRIN 81 MG PO SCH (08:58)
[2020-05-07] MEDS: predniSONE 10 MG TAB PO SCH (08:58)
[2020-05-07] MEDS: FUROSEMIDE 40 MG TAB PO SCH (08:58)
[2020-05-07] MEDS: SERTRALINE 100 MG TAB PO SCH (08:58)
[2020-05-07] MEDS: ZINC SULFATE 220 MG CAP PO SCH (08:58)
[2020-05-07] MEDS: ISOSORBIDE MONONITRATE ER 30 MG TAB.ER.24H PO SCH (08:58)
[2020-05-07] MEDS: amLODIPine 5 MG TAB PO SCH (08:58)
[2020-05-07] MEDS: METOPROLOL TARTRATE 12.5 MG TAB PO SCH ×2 (08:58→20:27)
[2020-05-07] MEDS: FOLIC ACID 1 MG TAB PO SCH (08:58)
[2020-05-07] MEDS: ENOXAPARIN 40 MG/0.4 ML SYRINGE SQ SCH (08:59)
[2020-05-07] MEDS: INSULIN DETEMIR (LEVEMIR) 100 UNIT/ML SYR SQ SCH (08:59)
[2020-05-07] MEDS: CHOLECALCIFEROL 400 UNIT TAB PO SCH (09:00)
[2020-05-07] MEDS: ALBUTEROL HFA INHALER INHALATION SCH ×4 (09:28→20:10)
[2020-05-07] MEDS: SYMBICORT 160-4.5 MCG INHALER INHALATION SCH ×2 (09:28→20:10)
[2020-05-07 09:31] LABS: Glucose,Whole Blood 102 mg/dL (75-99)
[2020-05-07 09:31] LABS: Glucose,Whole Blood 264 mg/dL (75-99)
[2020-05-07 09:31] LABS: Glucose,Whole Blood 273 mg/dL (75-99)
[2020-05-07 09:32] LABS: Glucose,Whole Blood 254 mg/dL (75-99)
[2020-05-07 09:34] LABS: Glucose,Whole Blood 119 mg/dL (75-99)
[2020-05-07 09:35] LABS: Glucose,Whole Blood 115 mg/dL (75-99)
[2020-05-07 09:35] LABS: Glucose,Whole Blood 203 mg/dL (75-99)
[2020-05-07 09:35] LABS: Glucose,Whole Blood 98 mg/dL (75-99)
[2020-05-07 09:36] LABS: Glucose,Whole Blood 312 mg/dL (75-99)
[2020-05-07 09:37] LABS: Glucose,Whole Blood 194 mg/dL (75-99)
[2020-05-07 09:39] LABS: Glucose,Whole Blood 175 mg/dL (75-99)
[2020-05-07 09:39] LABS: Glucose,Whole Blood 210 mg/dL (75-99)
[2020-05-07 09:39] LABS: Glucose,Whole Blood 244 mg/dL (75-99)
[2020-05-07 09:40] LABS: Glucose,Whole Blood 110 mg/dL (75-99)
[2020-05-07 09:40] LABS: Glucose,Whole Blood 194 mg/dL (75-99)
[2020-05-07 12:27] LABS: Glucose,Whole Blood 194 mg/dL (75-99)
--- NOTE | 2020-05-07 12:35 | P.PN ---
Subjective Progress Note Date: 05/07/20 CHIEF COMPLAINT: STEMI HISTORY OF PRESENT ILLNESS: This is a 65-year-old female who was admitted with a STEMI. She underwent PCI to RCA. She is positive for Covid. She remains on oral Lasix. She is currently on 6 L high flow nasal cannula. Patient was edgar cardic in the 40s yesterday. Metoprolol was decreased to 12.5 mg twice a day. Heart rate this morning is 57. Blood pressure 131/71. PHYSICAL EXAM: Thorough physical exam not completed secondary to limited evaluation/examination and due to Covid19 ASSESSMENT: Covid 19 pneumonitis STEMI, status post PCI to RCA Coronary artery disease with previous PCI to LAD Peripheral vascular disease Hypertension Hyperlipidemia Diabetes mellitus Nicotine dependence PLAN: Continue current cardiac medications Wean oxygen as tolerated Further recommendations pending patient course Nurse practitioner note has been reviewed by physician. Signing provider agrees with the documented findings, assessment, and plan of care. Objective - Vital Signs Vital signs: Vital Signs Temp 97.7 F 05/07/20 08:00 Pulse 57 L 05/07/20 08:00 Resp 18 05/07/20 04:16 BP 131/71 05/07/20 08:00 Pulse Ox 93 L 05/07/20 08:00 Intake & Output 05/06/20 05/07/20 05/07/20 18:59 06:59 18:59 Intake Total 1080 480 Output Total 600 0 Balance 1080 -600 480 Weight 93.5 kg Intake: Oral 1080 480 Output: Urine 600 0 Stool 0 Other: Voiding Method Indwelling Catheter Indwelling Catheter Indwelling Catheter # Voids 2 1 0 # Bowel Movements 1 0 ABP, PAP, CO, CI - Last Documented Arterial Blood Pressure 150/59 - Labs CBC & Chem 7: 05/02/20 05:05 05/05/20 07:46 Labs: Abnormal Lab Results - Last 24 Hours (Table) 05/04/20 05/04/20 05/04/20 Range/Units 06:03 06:40 11:30 POC Glucose (mg/dL) 312 H 194 H 102 H (75-99) mg/dL 05/04/20 05/04/20 05/05/20 Range/Units 17:08 20:04 06:12 POC Glucose (mg/dL) 273 H 264 H 254 H (75-99) mg/dL 05/05/20 05/05/20 05/05/20 Range/Units 12:19 16:59 20:08 POC Glucose (mg/dL) 175 H 210 H 244 H (75-99) mg/dL 05/06/20 05/06/20 05/06/20 Range/Units 05:55 08:09 11:52 POC Glucose (mg/dL) 194 H 119 H 110 H (75-99) mg/dL 05/06/20 05/06/20 05/07/20 Range/Units 16:44 20:35 12:19 POC Glucose (mg/dL) 115 H 203 H 194 H (75-99) mg/dL
[2020-05-07] MEDS: HYDROcodone/APAP 5-325MG 1 EACH TAB PO PRN ×2 (12:51→20:27)
--- NOTE | 2020-05-07 13:23 | PN ---
PROGRESS NOTE PULMONARY/CRITICAL CARE PROGRESS NOTE: DATE OF SERVICE: 05/07/2020 This is a 65-year-old female who was admitted back on April 26 with COVID-19 pneumonitis and acute hypoxemic respiratory failure. Currently, the patient is down to 4-5 L by nasal cannula. She was up at 10 L just a few days back. She is feeling better. She is hoping for a relatively rapid discharge, although it does not appear it is going to be today. The patient initially developed severe acute hypoxemic respiratory failure requiring intubation and mechanical ventilation. She was successfully extubated on April 28. That episode was caused by both diastolic CHF, and her COVID-19 pneumonia. Currently, she is in good spirits. She is sitting in bed. PHYSICAL EXAMINATION: VITAL SIGNS: Current vital signs are reviewed. Temperature is 97.7, heart rate 57, respiratory rate is 18, blood pressure 131/71, mean 91 and 5 L saturations 93-94%. Appears in no acute distress. HEENT: Examination is grossly unremarkable. NECK: Supple. Full range of motion. No adenopathy. Neck veins are flat. CARDIOVASCULAR: Examination reveals regular rhythm and rate. Heart rate in the high 50s, low 60s. S1, S2 normal. No murmur. LUNGS: Reveal a few scattered rhonchi. There are some crackles. No wheezes. Breath sounds equal. ABDOMEN: Obese. Bowel sounds are heard. EXTREMITIES are intact. No significant cyanosis, clubbing, or edema. SKIN: Without rash. NEUROLOGIC: Examination is nonfocal. LABS: Reviewed. Nothing new from today in the way of labs. Sugar is 98. Microbiology was positive for Enterococcus faecalis in the urine from April 26. The patient had a chest x-ray done on the , yesterday, which showed bilateral patchy infiltrates. May be a bit worse on the left side than on the right. Certainly more dense on the left. MEDICATIONS: Reviewed. Currently, the patient is on Tylenol, albuterol inhaler, Norvasc, vitamin C, aspirin, Lipitor, Symbicort, vitamin D3, Plavix, Lovenox, folic acid, Lasix, gabapentin, [place], Dilaudid p.r.n., NovoLog insulin, DuoNeb, Imdur, Levaquin, Maalox, metoprolol, Narcan, nicotine patch, nitroglycerin tablets, Protonix, MiraLAX, potassium protocol, prednisone, Zoloft, zinc, and Ambien. ASSESSMENT: 1. Acute hypoxemic respiratory failure requiring intubation and mechanical ventilation with successful extubation on April 28, secondary to COVID-19 pneumonitis as well as acute exacerbation of the patient's diastolic congestive heart failure. 2. Acute exacerbation of diastolic congestive heart failure, recovered. 3. Acute ST-segment elevation myocardial infarction/inferior wall, status post stenting of the right coronary artery. 4. Severe peripheral vascular occlusive disease, with previous atherectomy and balloon angioplasty. 5. Morbid obesity. 6. History of cerebrovascular accident and multiple transient ischemic attacks. 7. Severe coronary artery disease, status post multiple stents. 8. History of gastroesophageal reflux disease. 9. History of gastric ulcer. 10.Cerebral aneurysm, status post coiling. 11.History of nephrolithiasis/kidney stone. 12.Type 2 diabetes mellitus. 13.Tobacco dependence syndrome. 14.Enterococcus faecalis urinary tract infection, currently on Levaquin. PLAN: Currently, the patient is doing better. She has been weaned down to 4-5 L nasal cannula. Her saturations are in the low 90s. The patient is hoping to be discharged soon within the next 24 to 48 hours. Clinically, she looks well. She has always actually looked much better than her numbers. She is not having any chest pain or chest discomfort. There is no fever or chills. She is not coughing up any phlegm. We will continue to follow. MMODL / EDITHN: [id number] /
[2020-05-07 17:51] LABS: Glucose,Whole Blood 197 mg/dL (75-99)
[2020-05-07] MEDS: LEVOFLOXACIN 250 MG TAB PO SCH (20:27)
[2020-05-07] MEDS: ASCORBIC ACID 500 MG TAB PO SCH (20:27)
[2020-05-07] MEDS: ATORVASTATIN 40 MG TAB PO SCH (20:27)
[2020-05-07 20:32] LABS: Glucose,Whole Blood 250 mg/dL (75-99)
[2020-05-08] MEDS: NICOTINE 14MG/24HR PATCH TRANSDERM SCH (05:57)
[2020-05-08] MEDS: GABAPENTIN 400 MG CAP PO SCH ×3 (05:57→21:06)
[2020-05-08 07:34] LABS: Glucose,Whole Blood 127 mg/dL (75-99)
[2020-05-08] MEDS: SYMBICORT 160-4.5 MCG INHALER INHALATION SCH ×2 (07:46→19:17)
[2020-05-08] MEDS: ALBUTEROL HFA INHALER INHALATION SCH ×4 (07:46→19:17)
[2020-05-08] MEDS: INSULIN ASPART (NovoLOG) 100 UNIT/ML VIAL SQ SCH ×4 (07:49→21:01)
[2020-05-08] MEDS: predniSONE 10 MG TAB PO SCH (07:56)
[2020-05-08] MEDS: ZINC SULFATE 220 MG CAP PO SCH (07:56)
[2020-05-08] MEDS: PANTOPRAZOLE 40 MG TABLET PO SCH (07:56)
[2020-05-08] MEDS: ASPIRIN 81 MG PO SCH (07:56)
[2020-05-08] MEDS: FOLIC ACID 1 MG TAB PO SCH (07:57)
[2020-05-08] MEDS: CLOPIDOGREL 75 MG TAB PO SCH (07:57)
[2020-05-08] MEDS: ENOXAPARIN 40 MG/0.4 ML SYRINGE SQ SCH (07:57)
[2020-05-08] MEDS: SERTRALINE 100 MG TAB PO SCH (07:57)
[2020-05-08] MEDS: CHOLECALCIFEROL 400 UNIT TAB PO SCH (07:58)
[2020-05-08] MEDS: FUROSEMIDE 40 MG TAB PO SCH (07:58)
[2020-05-08] MEDS: INSULIN DETEMIR (LEVEMIR) 100 UNIT/ML SYR SQ SCH (08:57)
[2020-05-08] MEDS: ISOSORBIDE MONONITRATE ER 30 MG TAB.ER.24H PO SCH (08:57)
--- NOTE | 2020-05-08 10:53 | P.PN ---
Subjective Progress Note Date: 05/08/20 Days evaluation of 05/08/2020, the patient is feeling well. She is currently on 5 L of oxygen by nasal cannula. She has recovered from over the anterior related pneumonitis and she also recovered from acute non-STEMI requiring emergent stenting of the RCA. Left ventricular ejection fraction is within n ormal and the patient has a component of diastolic heart failure. No fever. No chills. No night sweats. No chest pain. No major swelling in lower extremities. She is currently with on a combination of aspirin, Plavix, and she is also on Lasix 40 mg on a daily basis and she takes metoprolol 12.5 mg by mouth twice a day. She is on Lovenox for DVT prophylaxis 40 mg subcu. She is also on prednisone 30 mg by mouth daily as part of the burst taper. She is receiving Levaquin for an enterococcal UTI. Her last chest x-ray showed some cardiomegaly and pulmonary vascular congestion and this was done on 2019. Objective - Vital Signs Vital signs: Vital Signs Temp 97.7 F 05/08/20 05:00 Pulse 56 L 05/08/20 08:56 Resp 20 05/08/20 05:00 BP 105/68 05/08/20 08:56 Pulse Ox 94 L 05/08/20 08:56 Intake & Output 05/07/20 05/08/20 05/08/20 18:59 06:59 18:59 Intake Total 480 500 Output Total 0 0 Balance 480 500 0 Weight 109 kg Intake: Oral 480 500 Output: Urine 0 Stool 0 0 Other: Voiding Method Indwelling Catheter Bedside Commode Bedside Commode # Voids 3 2 # Bowel Movements 0 ABP, PAP, CO, CI - Last Documented Arterial Blood Pressure 150/59 - Exam GENERAL EXAM: Alert, very pleasant, 65-year-old female patient, on 5 L of high flow oxygen, pulse ox is 96% comfortable in no apparent distress. HEAD: Normocephalic/atraumatic. EYES: Normal reaction of pupils, equal size. Conjunctiva pink, sclera white. NOSE: Clear with pink turbinates. THROAT: No erythema or exudates. NECK: No masses, no JVD, no thyroid enlargement, no adenopathy. CHEST: No chest wall deformity. Symmetrical expansion. LUNGS: Equal air entry with bibasilar crackles but no wheeze, rhonchi or dullness. CVS: Regular rate and rhythm, normal S1 and S2, no gallops, no murmurs, no rubs ABDOMEN: Soft, nontender. No hepatosplenomegaly, normal bowel sounds, no guarding or rigidity. EXTREMITIES: No clubbing, no edema, no cyanosis, 2+ pulses and upper and lower extremities. MUSCULOSKELETAL: Muscle strength and tone normal. SPINE: No scoliosis or deformity SKIN: No rashes CENTRAL NERVOUS SYSTEM: Alert and oriented -3. No focal deficits, tone is normal in all 4 extremities. PSYCHIATRIC: Alert and oriented -3. Appropriate affect. Intact judgment and insight. - Labs CBC & Chem 7: 05/02/20 05:05 05/05/20 07:46 Labs: Abnormal Lab Results - Last 24 Hours (Table) 05/07/20 05/07/20 05/07/20 Range/Units 12:19 17:31 20:21 POC Glucose (mg/dL) 194 H 197 H 250 H (75-99) mg/dL 05/08/20 Range/Units 07:32 POC Glucose (mg/dL) 127 H (75-99) mg/dL Assessment and Plan Plan: #1. Acute hypoxic respiratory failure secondary to recent history of CoVID 19 pneumonitis in addition to acute exacerbation of diastolic CHF, requiring intubation and mechanical ventilation, was successfully weaned and extubated on 04/28/2020, currently maintaining O2 saturations in the 90s on 5 L high flow n sudhir cannula #2. Acute exacerbation of diastolic congestive heart failure, improving and the patient has a normal ejection fraction #3. Acute ST elevated myocardial infarction/inferior wall KS, status post stenting of the RCA #4. Severe peripheral vessel occlusive disease and previous SFA atherectomy and balloon angioplasty #5. Morbid obesity #6. History of CVA and multiple TIAs #7. Severe coronary artery disease status post multiple stents #8. History of GERD #9. History of gastric ulcer disease #10. History of cerebral aneurysm requiring colectomy #11. History of nephrolithiasis #12. Type 2 diabetes mellitus #13. Tobacco dependence syndrome #14. Acute urinary tract infection with urine culture positive for Enterococcus faecalis. Currently on Levaquin. Plan The Prednisone down to 20 Mg for Another 4 Days and 10 Mg for 4 Days and Then Discontinue Wean down the FiO2 to maintain a saturation above 90% Continue cardiac medications Discharge planning is in progress.
[2020-05-08 11:48] LABS: Glucose,Whole Blood 270 mg/dL (75-99)
[2020-05-08] MEDS: amLODIPine 5 MG TAB PO SCH (12:35)
[2020-05-08] MEDS: METOPROLOL TARTRATE 12.5 MG TAB PO SCH ×2 (12:36→21:05)
[2020-05-08] MEDS: HYDROcodone/APAP 5-325MG 1 EACH TAB PO PRN (13:57)
[2020-05-08 17:06] LABS: Glucose,Whole Blood 301 mg/dL (75-99)
[2020-05-08 20:31] LABS: Glucose,Whole Blood 294 mg/dL (75-99)
[2020-05-08] MEDS: LEVOFLOXACIN 250 MG TAB PO SCH (21:05)
[2020-05-08] MEDS: ASCORBIC ACID 500 MG TAB PO SCH (21:05)
[2020-05-08] MEDS: ATORVASTATIN 40 MG TAB PO SCH (21:05)
[2020-05-09] MEDS: NICOTINE 14MG/24HR PATCH TRANSDERM SCH (05:27)
[2020-05-09] MEDS: GABAPENTIN 400 MG CAP PO SCH (05:27)
[2020-05-09 07:07] LABS: Glucose,Whole Blood 108 mg/dL (75-99)
[2020-05-09] MEDS: INSULIN ASPART (NovoLOG) 100 UNIT/ML VIAL SQ SCH ×2 (07:17→12:31)
[2020-05-09] MEDS: SYMBICORT 160-4.5 MCG INHALER INHALATION SCH (07:36)
[2020-05-09] MEDS: ALBUTEROL HFA INHALER INHALATION SCH ×3 (07:36→15:22)
[2020-05-09] MEDS: ENOXAPARIN 40 MG/0.4 ML SYRINGE SQ SCH (08:12)
[2020-05-09] MEDS: FUROSEMIDE 40 MG TAB PO SCH (08:12)
[2020-05-09] MEDS: SERTRALINE 100 MG TAB PO SCH (08:12)
[2020-05-09] MEDS: ASPIRIN 81 MG PO SCH (08:12)
[2020-05-09] MEDS: ZINC SULFATE 220 MG CAP PO SCH (08:12)
[2020-05-09] MEDS: INSULIN DETEMIR (LEVEMIR) 100 UNIT/ML SYR SQ SCH (08:13)
[2020-05-09] MEDS: FOLIC ACID 1 MG TAB PO SCH (08:13)
[2020-05-09] MEDS: ISOSORBIDE MONONITRATE ER 30 MG TAB.ER.24H PO SCH (08:13)
[2020-05-09] MEDS: PANTOPRAZOLE 40 MG TABLET PO SCH (08:13)
[2020-05-09] MEDS: CLOPIDOGREL 75 MG TAB PO SCH (08:13)
[2020-05-09] MEDS: CHOLECALCIFEROL 400 UNIT TAB PO SCH (08:14)
[2020-05-09] MEDS ORDERED: predniSONE 20 MG TAB PO SCH (09:00)
[2020-05-09] MEDS: amLODIPine 5 MG TAB PO SCH (09:56)
[2020-05-09 11:11] LABS: Glucose,Whole Blood 174 mg/dL (75-99)
--- NOTE | 2020-05-09 11:26 | P.PN ---
Subjective Progress Note Date: 05/09/20 On 05/09/2020, the patient is doing well. She is quite stable for now. No new complaints. She remains on oxygen at 5 L per minute nasal cannula. No angina. No palpitation. We are looking into [facility] She is post non-STEMI with emergent stenting of the RCA. She also has a component of diastolic heart failure. She remains on Lovenox for DVT prophylaxis. I tapered her steroids yesterday. She is completing the course of Levaquin regarding an enterococcal UTI. No nausea. No vomiting. No abdominal pain. No chest pain. No other significant events overnight. No fever. No chills. Objective - Vital Signs Vital signs: Vital Signs Temp 98 F 05/09/20 05:00 Pulse 59 L 05/09/20 09:54 Resp 18 05/09/20 05:00 BP 144/74 05/09/20 09:54 Pulse Ox 94 L 05/09/20 09:54 Intake & Output 05/08/20 05/09/20 05/09/20 18:59 06:59 18:59 Intake Total 320 Output Total 0 700 0 Balance 0 -380 0 Weight 105.5 kg Intake: Oral 320 Output: Urine 700 Stool 0 0 Other: Voiding Method Bedside Commode Bedside Commode # Voids 2 2 ABP, PAP, CO, CI - Last Documented Arterial Blood Pressure 150/59 - Exam GENERAL EXAM: Alert, very pleasant, 65-year-old female patient, on 5 L of high flow oxygen, pulse ox is 96% comfortable in no apparent distress. HEAD: Normocephalic/atraumatic. EYES: Normal reaction of pupils, equal size. Conjunctiva pink, sclera white. NOSE: Clear with pink turbinates. THROAT: No erythema or exudates. NECK: No masses, no JVD, no thyroid enlargement, no adenopathy. CHEST: No chest wall deformity. Symmetrical expansion. LUNGS: Equal air entry with bibasilar crackles but no wheeze, rhonchi or dullness. CVS: Regular rate and rhythm, normal S1 and S2, no gallops, no murmurs, no rubs ABDOMEN: Soft, nontender. No hepatosplenomegaly, normal bowel sounds, no guarding or rigidity. EXTREMITIES: No clubbing, no edema, no cyanosis, 2+ pulses and upper and lower extremities. MUSCULOSKELETAL: Muscle strength and tone normal. SPINE: No scoliosis or deformity SKIN: No rashes CENTRAL NERVOUS SYSTEM: Alert and oriented -3. No focal deficits, tone is normal in all 4 extremities. PSYCHIATRIC: Alert and oriented -3. Appropriate affect. Intact judgment and insight. - Labs CBC & Chem 7: 05/02/20 05:05 05/05/20 07:46 Labs: Abnormal Lab Results - Last 24 Hours (Table) 05/08/20 05/08/20 05/08/20 Range/Units 11:45 16:41 20:30 POC Glucose (mg/dL) 270 H 301 H 294 H (75-99) mg/dL 05/09/20 05/09/20 Range/Units 07:06 11:09 POC Glucose (mg/dL) 108 H 174 H (75-99) mg/dL Assessment and Plan Plan: #1. Acute hypoxic respiratory failure secondary to recent history of CoVID 19 pneumonitis in addition to acute exacerbation of diastolic CHF, requiring intubation and mechanical ventilation, was successfully weaned and extubated on 04/28/2020, currently maintaining O2 saturations in the 90s on 5 L high flow nasal cannula #2. Acute exacerbation of diastolic congestive heart failure, improving and the patient has a normal ejection fraction #3. Acute ST elevated myocardial infarction/inferior wall IN, status post stenting of the RCA #4. Severe peripheral vessel occlusive disease and previous SFA atherectomy and balloon angioplasty #5. Morbid obesity #6. History of CVA and multiple TIAs #7. Severe coronary artery disease status post multiple stents #8. History of GERD #9. History of gastric ulcer disease #10. History of cerebral aneurysm requiring colectomy #11. History of nephrolithiasis #12. Type 2 diabetes mellitus #13. Tobacco dependence syndrome #14. Acute urinary tract infection with urine culture positive for Enterococcus faecalis. Currently on Levaquin. Plan Will wean the FiO2 slowly to maintain a saturation above 90%. Complete a prednisone burst taper as stated earlier Pulmonary cardiovascular status is stable and the patient is possibly going to [facility] today. The patient has already completed the course of Levaquin The blood sugar control is improved as the patient is being tapered off the prednisone. She is goof for discharge from the pulmonary standpoint.
[2020-05-09 11:47] VITALS: BP 121/83; PULSE 64; RESP 16; TEMP 99
[2020-05-09] MEDS: METOPROLOL TARTRATE 12.5 MG TAB PO SCH (12:31)
--- NOTE | 2020-05-09 14:21 | P.DS ---
Providers Date of admission: 04/26/20 14:46 Expected date of discharge: 05/09/20 Attending physician: Tesha Ward Consults: 04/26/20 14:51 Consult Physician Urgent Consulting Provider: Jose Carlos Hemphill Consult Reason/Comments: stemi Do you want consulting provider notified?: Already Contacted 04/26/20 17:45 Consult Physician Routine Consulting Provider: [facility] Consult Reason/Comments: Post Interventional patient Do you want consulting provider notified?: Already Contacted 04/26/20 18:02 Consult Physician Stat Consulting Provider: Emma Solano Consult Reason/Comments: icu management Do you want consulting provider notified?: Yes Primary care physician: Stated None Hospital Course: Final diagnosis Acute hypoxic respiratory failure secondary to covid [address] elevated UT/inferior wall UT with ST elevation in the leads II, III and aVF. Status post stenting of RCA. Enterococcus faecalis urinary tract infection Recent COVID-19 pneumonia Coronary artery disease with history of stent placement in 2019 to LAD Severe peripheral vascular disease with history of SFA atherectomy and balloon angioplasty. Hypertension History of CVA and multiple TIAs History of UT Hyperlipidemia GERD History of gastric ulcers History of cerebral aneurysm requiring coiling. Chronic back pain history of multiple epidural injections Nephrolithiasis Diabetes type 2 she-spvsngz-lbecsdrls Ongoing nicotine addiction DVT prophylaxis Discharge disposition Patient is being discharged in a stable condition with guarded prognosis to [facility] for continued PT/OT therapy. Patient will follow-up with Dr. Jarrett upon discharge in the outpatient setting. Patient is also instructed to follow up with cardiology in the outpatient setting. Total time taken is greater than 35 minutes. History of present illness This is a 65year-old female who was recently admitted with acute ST elevated myocardial infarction of the inferior wall with ST elevation and recent Covid 19 pneumonia and was being closely monitored. Patient was seen and evaluated by pulmonary along with cardiology during hospitalization. Patient underwent cardiac catheterization with stenting of the RCA. Patient will continue on aspirin and Plavix in the outpatient setting. She was also recently sent to [facility] status post Covid 19 pneumonia and prolonged length of stay at the hospital for continued PT/OT therapy. During this hospitalization patient continued to require high amounts of oxygen and has been currently weaned down to 4-5 L nasal cannula and will continue to wean as tolerated in the outpatient setting. Patient will also continue with oral antibiotics in the form of Levaquin 250 mg daily for the next 7 days to complete the course. Amy ent has been transitioned to oral Lasix and will continue. Cardiology recommending Lopressor 12.5 mg twice daily and will continue with this in the outpatient setting as well. Patient does have a history of diabetes mellitus and will continue with monitoring Accu-Cheks before meals at bedtime and treat accordingly with sliding scale along with long-acting insulin. Currently no reports of chest pain, worsening shortness of breath, or palpitations. Patient is afebrile. No reports of nausea or vomiting and patient is tolerating diet. Patient will be going to [facility] on the [facility] today. On exam vital signs are stable. Temp is 99.0F, pulse is 64, respirations are 16, blood pressure is 121/83, oxygen saturation is 90-94% on 5 L via nasal cannula. Cardio S1, S2 are muffled. Respiratory system shows diminished breath sounds at the bases with with some scattered rhonchi noted. Abdomen is soft and nontender. Nervous system shows diffuse weakness. Please refer to medication reconciliation sheet for a list of medications. Patient Condition at Discharge: Stable Plan - Discharge Summary New Discharge Prescriptions: New Aspirin 81 mg PO DAILY chew predniSONE [Deltasone] 20 mg PO DAILY tab Furosemide [Lasix] 40 mg PO DAILY tab Levofloxacin [Levaquin] 250 mg PO Q24H 7 Days #7 tab Metoprolol Tartrate [Lopressor] 12.5 mg PO BID tab Mag Hydrox/Al Hydrox/Simeth [Maalox] 30 ml PO Q4HR PRN ml PRN Reason: Heartburn Budesonide-Formot 160-4.5 Mcg [Symbicort 160-4.5 Mcg Inhaler] 2 puff INHAL ATION RT-BID puff Continue Insulin Glargine,Hum.rec.anlog [Tochacha Solostar] 20 units SQ DAILY@0900 Sertraline [Zoloft] 200 mg PO DAILY@0900 Acetaminophen Tab [Tylenol] 650 mg PO DAILY PRN PRN Reason: Pain Isosorbide Mononitrate [Isosorbide Mononitrate ER] 30 mg PO DAILY@0900 Cetirizine HCl 10 mg PO DAILY PRN PRN Reason: Itching Nitroglycerin Sl Tabs [Nitrostat] 0.4 mg SUBLINGUAL Q5M PRN #25 tab PRN Reason: Chest Pain Clopidogrel [Plavix] 75 mg PO DAILY@0900 Albuterol Inhaler [Ventolin Hfa Inhaler] 2 puff INHALATION RT-QID@06,12,, polyethylene glycoL 3350 [Miralax] 17 gm PO DAILY PRN powd.pack PRN Reason: Constipation Zinc Sulfate [Orazinc] 220 mg PO DAILY@0900 Ipratropium-Albuterol Nebulize [Duoneb 0.5 mg-3 mg/3 ml Soln] 3 ml INHALATION RT-Q4H PRN PRN Reason: Shortness Of Breath INSULIN LISPRO (humaLOG) [humaLOG] See Protocol SQ QID@08,12,, Sennosides [Senokot] 8.6 mg PO BID@0900,2100 Pantoprazole [Protonix] 40 mg PO DAILY@0600 Cholecalciferol [Vitamin D3] 400 unit PO DAILY@0900 Nicotine 14Mg/24Hr Patch [Habitrol] 1 patch TRANSDERM DAILY@0600 Atorvastatin [Lipitor] 40 mg PO HS@2100 Folic Acid 1 mg PO DAILY@0900 amLODIPine [Norvasc] 5 mg PO DAILY@0900 Ascorbic Acid [Vitamin C] 1,000 mg PO HS@2100 Clotrimazole/Betameth Lotion [Lotrisone] 1 applic TOPICAL Q12H HYDROcodone/APAP 5-325MG [Palestine 5-325] 1 tab PO TID PRN #10 tab PRN Reason: Pain Changed Gabapentin [Neurontin] 400 mg PO TID@0600,1400,2200 #10 cap Discontinued Aspirin 325 mg PO DAILY@0900 Discharge Medication List Insulin Glargine,Hum.rec.anlog [Merry Miranda] 20 units SQ DAILY@0900 10/11/15 [History] Acetaminophen Tab [Tylenol] 650 mg PO DAILY PRN 03/18/19 [History] Cetirizine HCl 10 mg PO DAILY PRN 03/18/19 [History] Isosorbide Mononitrate [Isosorbide Mononitrate ER] 30 mg PO DAILY@0900 03/18/19 [History] Sertraline [Zoloft] 200 mg PO DAILY@0900 03/18/19 [History] Nitroglycerin Sl Tabs [Nitrostat] 0.4 mg SUBLINGUAL Q5M PRN #25 tab 03/23/19 [Rx] Clopidogrel [Plavix] 75 mg PO DAILY@0900 08/27/19 [History] Albuterol Inhaler [Ventolin Hfa Inhaler] 2 puff INHALATION RT-QID@06,12,,04/10/20 [History] polyethylene glycoL 3350 [Miralax] 17 gm PO DAILY PRN powd.pack 04/21/20 [Rx] Ascorbic Acid [Vitamin C] 1,000 mg PO HS@209904/26/20 [History] Atorvastatin [Lipitor] 40 mg PO HS@209904/26/20 [History] Cholecalciferol [Vitamin D3] 400 unit PO DAILY@0904/26/20 [History] Clotrimazole/Betameth Lotion [Lotrisone] 1 applic TOPICAL Q12H 04/26/20 [History] Folic Acid 1 mg PO DAILY@0904/26/20 [History] INSULIN LISPRO (humaLOG) [humaLOG] See Protocol SQ QID@,,,04/26/20 [History] Ipratropium-Albuterol Nebulize [Duoneb 0.5 mg-3 mg/3 ml Soln] 3 ml INHALATION RT-Q4H PRN 04/26/20 [History] Nicotine 14Mg/24Hr Patch [Habitrol] 1 patch TRANSDERM DAILY@0604/26/20 [History] Pantoprazole [Protonix] 40 mg PO DAILY@0604/26/20 [History] Sennosides [Senokot] 8.6 mg PO BID@0900,209904/26/20 [History] Zinc Sulfate [Orazinc] 220 mg PO DAILY@0900 04/26/20 [History] amLODIPine [Norvasc] 5 mg PO DAILY@0900 04/26/20 [History] Aspirin 81 mg PO DAILY chew 05/09/20 [Rx] Budesonide-Formot 160-4.5 Mcg [Symbicort 160-4.5 Mcg Inhaler] 2 puff INHALATION RT-BID puff 05/09/20 [Rx] Furosemide [Lasix] 40 mg PO DAILY tab 05/09/20 [Rx] Gabapentin [Neurontin] 400 mg PO TID@0600,1400,2200 #10 cap 05/09/20 [Rx] HYDROcodone/APAP 5-325MG [Palestine 5-325] 1 tab PO TID PRN #10 tab 05/09/20 [Rx] Levofloxacin [Levaquin] 250 mg PO Q24H 7 Days #7 tab 05/09/20 [Rx] Mag Hydrox/Al Hydrox/Simeth [Maalox] 30 ml PO Q4HR PRN ml 05/09/20 [Rx] Metoprolol Tartrate [Lopressor] 12.5 mg PO BID tab 05/09/20 [Rx] predniSONE [Deltasone] 20 mg PO DAILY tab 05/09/20 [Rx] Follow up Appointment(s)/Referral(s): None,Stated [Primary Care Provider] - 1-2 days Activity/Diet/Wound Care/Special Instructions: Patient is going to [facility] on [facility] [place] Continue with consistent carbohydrate diet Continue antibiotics for the next 7 days and then may discontinue Continue to monitor blood sugars before meals at bedtime and treat accordingly Activity as tolerated Discharge Disposition: TRANSFER TO SNF/ECF
--- NOTE | 2020-05-10 12:03 | CDI ---
Documentation Clarification Form Date: 05/10/20 From: Kamala Ghotra Phone: If you have a question about this query, please contact Bettye Carnes, Roaster Helper at [phone] between 8am and 5pm Admit Date: 04/26/2020 02:46:00 PM Patient Name: Starr James Visit Number: [id number] Discharge Date: 05/09/2020 03:57:00 PM ATTENTION: The Clinical Documentation Specialists (CDI) and [facility] Coding Staff appreciate your assistance in clarifying documentation. Please respond to the clarification below the line at the bottom and electronically sign. The CDI & [facility] Coding staff will review the response and follow-up if needed. Please note: Queries are made part of the Legal Health Record. If you have any questions, please contact the author of this message via ITS. Dr. Ant Rodriguez, Reminder per the CDC A negative result does not rule out COVID-19 and should not be used as the sole basis for treatment or patient management decisions. The COVID-19 test obtained on 04/27 was reported as Negative on 04/27]. Per case summary patient had a admission with a positive COVID 19 test on 04/10. She has been recovering at [facility] for COVID 19 pneumonia. She presents to ED with chest pain associated with SOB and a racing heart. Radiating to the neck. She was found to have acute STEMI of inferior coronary inferior wall. Patient history/risk factors: morbid obesity, BMI 45.4, COPD, HTN w acute on chronic diastolic CHF, DM, CAD w stent, hx of smoking Clinical Indicators: ongoing COVID pneumonia under treatment, Patient reported SOB. CXR 04/26: Low lung volumes and cardiomegaly with worsening bilateral multifocal infiltrates and/or edema with suspected organizing consolidations suspicious for Covid-19 infection progression. VS in ED Triage: T- 98.7, P-88, R-16, Sat % 78 on 04/26 WBC 17.4 on 04/26 Treatment: Peridex, Levaquin, Ceftriazone 04/27 Pulmonary consult Acute hypoxic respiratory failure secondary to Covid 19 pneumonitis. In order to capture the severity of condition, please clarify the COVID-19 status: False negative, treating for COVID-19 infection COVID-19 ruled out Other, please specify False negative, treating for COVID-19 infection MTDD
== END 2020-05-09 15:57 | DRG 246 ==
LOC: CATHCVL 14:29 → 2SICU 14:46 → 3SCARD 05-02 14:11 → 6NMEDSUR 05-07 11:14
PROVIDERS: ADMIT Internal Medicine; ATTEND Internal Medicine
PROC: 0D9670Z Drainage of Stomach with Drainage Device, Via Natural or Artificial Opening (ICD-10-PCS; 2020-04-26)
PROC: 027034Z Dilation of Coronary Artery, One Artery with Drug-eluting Intraluminal Device, Percutaneous Approach (ICD-10-PCS; principal; 2020-04-26 20:55)
PROC: 02C03ZZ Extirpation of Matter from Coronary Artery, One Artery, Percutaneous Approach (ICD-10-PCS; principal; 2020-04-26 20:55)
PROC: B2111ZZ Fluoroscopy of Multiple Coronary Arteries using Low Osmolar Contrast (ICD-10-PCS; principal; 2020-04-26 20:55)
PROC: 4A023N7 Measurement of Cardiac Sampling and Pressure, Left Heart, Percutaneous Approach (ICD-10-PCS; principal; 2020-04-26 20:55)
PROC: 3E033XZ Introduction of Vasopressor into Peripheral Vein, Percutaneous Approach (ICD-10-PCS; 2020-04-26 20:55)
PROC: 4A133J1 Monitoring of Arterial Pulse, Peripheral, Percutaneous Approach (ICD-10-PCS; 2020-04-27)
PROC: 5A1945Z Respiratory Ventilation, 24-96 Consecutive Hours (ICD-10-PCS; 2020-04-27)
PROC: 0BH17EZ Insertion of Endotracheal Airway into Trachea, Via Natural or Artificial Opening (ICD-10-PCS; 2020-04-27)
PROC: 03HY32Z Insertion of Monitoring Device into Upper Artery, Percutaneous Approach (ICD-10-PCS; 2020-04-27)
PROC: 4A133B1 Monitoring of Arterial Pressure, Peripheral, Percutaneous Approach (ICD-10-PCS; 2020-04-27)
PROC: 02H633Z Insertion of Infusion Device into Right Atrium, Percutaneous Approach (ICD-10-PCS; 2020-04-27)
PROC: 3E0G76Z Introduction of Nutritional Substance into Upper GI, Via Natural or Artificial Opening (ICD-10-PCS; 2020-04-28)
PROC: 5A0955A Assistance with Respiratory Ventilation, Greater than 96 Consecutive Hours, High Flow/Velocity Cannula (ICD-10-PCS; 2020-04-28)
DX: I21.19 ST elevation (STEMI) myocardial infarction involving other coronary artery of inferior wall (principal); U07.1 COVID-19; I50.33 Acute on chronic diastolic (congestive) heart failure; J96.01 Acute respiratory failure with hypoxia; J12.89 Other viral pneumonia; J44.0 Chronic obstructive pulmonary disease with (acute) lower respiratory infection; N39.0 Urinary tract infection, site not specified; Z68.42 Body mass index [BMI] 45.0-49.9, adult; I95.9 Hypotension, unspecified; E11.40 Type 2 diabetes mellitus with diabetic neuropathy, unspecified; E11.51 Type 2 diabetes mellitus with diabetic peripheral angiopathy without gangrene; I11.0 Hypertensive heart disease with heart failure; E66.01 Morbid (severe) obesity due to excess calories; B95.2 Enterococcus as the cause of diseases classified elsewhere; R00.1 Bradycardia, unspecified; E78.5 Hyperlipidemia, unspecified; I25.10 Atherosclerotic heart disease of native coronary artery without angina pectoris; Z79.4 Long term (current) use of insulin; K21.9 Gastro-esophageal reflux disease without esophagitis; I25.2 Old myocardial infarction; G89.29 Other chronic pain; M54.9 Dorsalgia, unspecified; F32.9 Major depressive disorder, single episode, unspecified; F41.0 Panic disorder [episodic paroxysmal anxiety]; H93.19 Tinnitus, unspecified ear; M19.90 Unspecified osteoarthritis, unspecified site; F17.210 Nicotine dependence, cigarettes, uncomplicated; Z79.82 Long term (current) use of aspirin; Z79.02 Long term (current) use of antithrombotics/antiplatelets; Z79.899 Other long term (current) drug therapy; Z86.73 Personal history of transient ischemic attack (TIA), and cerebral infarction without residual deficits; Z87.01 Personal history of pneumonia (recurrent); Z87.11 Personal history of peptic ulcer disease; Z87.440 Personal history of urinary (tract) infections; Z87.442 Personal history of urinary calculi; Z86.69 Personal history of other diseases of the nervous system and sense organs; Z87.81 Personal history of (healed) traumatic fracture; Z90.49 Acquired absence of other specified parts of digestive tract; Z86.79 Personal history of other diseases of the circulatory system; Z87.39 Personal history of other diseases of the musculoskeletal system and connective tissue; Z96.82 Presence of neurostimulator; Z95.5 Presence of coronary angioplasty implant and graft; Z94.5 Skin transplant status; Z71.3 Dietary counseling and surveillance; Z98.890 Other specified postprocedural states; Z88.5 Allergy status to narcotic agent; Z88.0 Allergy status to penicillin; Z88.8 Allergy status to other drugs, medicaments and biological substances; Z80.52 Family history of malignant neoplasm of bladder; Z84.1 Family history of disorders of kidney and ureter
CPT/HCPCS: 71045; 80048; 80053; 80061; 81001; 82550; 82728; 82805; 83615; 83735; 83880; 84132; 84484; 85025; 85027; 85379; 85384; 85610; 85730; 86140; 86803; 87070; 87077; 87086; 87186; 87205; 87635; 93005; 93306; 93458; 94002; 94003; 94640; 94760; 96374; 99285

== ENCOUNTER 2021-12-04 14:41 | Inpatient (IN) | payer MEDICARE, OTHER ==
[2021-12-04] MEDS ORDERED: ACETAMINOPHEN TAB 500 MG TAB PO STA (14:54)
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
[2021-12-04 15:29] LABS: Anisocytosis Slight; Basophils % (A) 0 %; Eosinophils # (A) 0.1 k/uL (0-0.7); Eosinophils % (A) 1 %; HCT 39.5 % (34.0-46.0); HGB 12.6 gm/dL (11.4-16.0); Hypochromasia Slight; Lymphocytes # (A) 0.5 k/uL (1.0-4.8); Lymphocytes % (A) 5 %; MCH 24.8 pg (25.0-35.0); MCHC 31.8 g/dL (31.0-37.0); Mean Platelet Volume 9.3; Microcytosis Slight; Monocytes # (A) 0.2 k/uL (0-1.0); Monocytes % (A) 2 %; Neutrophils # (A) 8.4 k/uL (1.3-7.7); Neutrophils % (A) 91 %; Platelet Count 162 k/uL (150-450); RBC 5.07 m/uL (3.80-5.40); RDW 16.3 % (11.5-15.5); WBC 9.1 k/uL (3.8-10.6)
[2021-12-04 15:31] LABS: Appearance,Urine Clear (Clear); Bacteria,Urine Many /hpf; Bilirubin,Urine Negative (Negative); Blood,Urine Small (Negative); Budding Yeast,Urine Few /hpf; Color,Urine Light Yellow; Glucose,Urine (UA) Negative (Negative); Ketones,Urine Negative (Negative); Leukocyte Esterase,Urine Moderate (Negative); Mucus,Urine Rare /hpf; Nitrite,Urine Positive (Negative); PH, Urine 6.5 (5.0-8.0); Protein,Urine 3+ (Negative); RBC,Urine 14 /hpf (0-5); Squamous Epithelial Cell,Urine <1 /hpf (0-4); Urobilinogen,Urine <2.0 mg/dL (<2.0); WBC,Urine 48 /hpf (0-5)
[2021-12-04 15:41] LABS: Amphetamine Screen,Urine Not Detected (NotDetected); Barbiturate Screen,Urine Not Detected (NotDetected); Benzodiazepines Screen,Urine Not Detected (NotDetected); Cocaine Screen,Urine Not Detected (NotDetected); Methadone Screen, Urine Not Detected (NotDetected); Opiate Screen,Urine Not Detected (NotDetected); Oxycodone Screen, Urine Not Detected (NotDetected); Phencyclidine Screen,Urine Not Detected (NotDetected); Tricyclic Antidepressant,Urine Not Detected (NotDetected); Urn Cannabinoid Scrn Not Detected (NotDetected)
[2021-12-04 15:42] LABS: INR 1.1 (<1.2); Partial Thromboplastin Time 23.6 sec (22.0-30.0); Prothrombin Time 11.5 sec (9.0-12.0)
[2021-12-04 16:02] LABS: Calcium 8.8 mg/dL (8.4-10.2); Potassium 3.6 mmol/L (3.5-5.1); Total Bilirubin 0.5 mg/dL (0.2-1.3); Total Protein 6.8 g/dL (6.3-8.2)
[2021-12-04] MEDS ORDERED: LEVOFLOXACIN 750MG-D5W PMX 750 MG in DEXTROSE/WATER 1 150ML.BAG IVPB STA (16:02)
--- NOTE | 2021-12-04 16:26 | CT ---
EXAMINATION TYPE: CT brain wo con CT DLP: 1084.4 mGycm, Automated exposure control for dose reduction was used. DATE OF EXAM: 12/04/2021 4:17 PM COMPARISON: Prior CT Brain from 04/10/2020. CLINICAL INDICATION:Female, 66 years old with history of Altered mental status, TECHNIQUE: Brain: Multiple axial CT images of the brain were obtained without IV contrast. Coronal and sagittal reformats reviewed. FINDINGS: Brain: Extra-axial spaces: No abnormal extra-axial fluid collections. Ventricular system: Dilatation in proportion to cerebral atrophy. Cerebral parenchyma: No acute intraparenchymal hemorrhage or mass effect. Remote injury to the right occipital lobe and bilateral frontal lobes. The lance-white junction is well differentiated.Cerebral volume loss. Cerebellum: Encephalomalacia redemonstrated within the left cerebellar hemisphere. Metallic density i s again present to the left of the brainstem. Mass effect: No evidence of midline shift. Intracranial vasculature: Atherosclerotic calcifications of the intracranial vessels. Soft tissues: Normal. Calvarium/osseous structures: No depressed skull fracture. Right frontal craniotomy defect redemonstr ated. Paranasal sinuses and mastoid air cells: Clear Visualized orbits: Orbital contents are intact. IMPRESSION: * No acute intracranial process. No significant change from prior examination. * Remote bilateral frontal, right occipital, and left cerebellar injuries. Unchanged metallic densit y to the left of the brainstem.
--- NOTE | 2021-12-04 16:37 | XR ---
EXAMINATION TYPE: XR chest 2V DATE OF EXAM: 12/04/2021 4:23 PM COMPARISON: Chest radiographs from 05/04/2022. TECHNIQUE: XR chest 2V Frontal and lateral views of the chest. CLINICAL INDICATION:Female, 66 years old with history of altered mental status; FINDINGS: Lungs/Pleura: Low lung volumes are present. There is no evidence of pleural effusion, focal consolida tion, or pneumothorax. Pulmonary vascularity: Unremarkable. Heart/mediastinum: Cardiomediastinal silhouette is enlarged and stable. Musculoskeletal: No acute osseous pathology. IMPRESSION: Low lung volumes without definitive evidence for acute process..
[2021-12-04] MEDS ORDERED: NALOXONE 0.4 MG/ML 1 ML VIAL IV PRN (16:40)
[2021-12-04] MEDS ORDERED: IBUPROFEN 400 MG TAB PO PRN (16:40)
[2021-12-04] MEDS: SODIUM CHLORIDE 0.9% 1,000 ML IV SCH (16:44)
[2021-12-05] MEDS: ATORVASTATIN 40 MG TAB PO SCH ×2 (00:11→20:20)
[2021-12-05] MEDS: CLOPIDOGREL 75 MG TAB PO SCH ×2 (00:11→08:16)
[2021-12-05] MEDS: METOPROLOL TARTRATE 25 MG TAB PO SCH ×3 (00:12→20:20)
[2021-12-05] MEDS: TOPIRAMATE 25 MG TAB PO SCH ×2 (00:12→20:20)
[2021-12-05] MEDS: SODIUM CHLORIDE 0.9% 1,000 ML IV SCH ×3 (01:34→20:21)
[2021-12-05 03:03] LABS: Anisocytosis Slight; HCT 37.6 % (34.0-46.0); HGB 11.8 gm/dL (11.4-16.0); Hypochromasia Moderate; MCH 24.8 pg (25.0-35.0); MCHC 31.5 g/dL (31.0-37.0); MCV 78.9 fL (80.0-100.0); Mean Platelet Volume 9.4; Microcytosis Slight; Platelet Count 112 k/uL (150-450); RBC 4.76 m/uL (3.80-5.40); RDW 16.4 % (11.5-15.5); WBC 14.3 k/uL (3.8-10.6)
[2021-12-05 03:05] LABS: African American GFR (CKD) 25 (>60 ml/min/1.73 sqM); Anion Gap 10 mmol/L; Blood Urea Nitrogen 22 mg/dL (7-17); Carbon Dioxide 18 mmol/L (22-30); Chloride 106 mmol/L (98-107); Non-African American GFR(CKD) 22 (>60 ml/min/1.73 sqM); Sodium 134 mmol/L (137-145)
[2021-12-05 03:06] LABS: Calcium 8.5 mg/dL (8.4-10.2); Glucose 131 mg/dL (74-99); Potassium 3.6 mmol/L (3.5-5.1)
[2021-12-05 03:44] LABS: Band Neutrophils % 4 %; Lymphocytes # (M) 1.43 k/uL (1.0-4.8); Monocytes # (M) 0.86 k/uL (0-1.0); Neutrophils % (M) 80 %; Nucleated Red Blood Cells 0 /100 WBC (0-0); Total Cells Counted 100
[2021-12-05] MEDS: amLODIPine 10 MG TAB PO SCH (06:03)
[2021-12-05 07:03] LABS: Glucose,Whole Blood 126 mg/dL (70-110)
[2021-12-05] MEDS: SYMBICORT 160-4.5 MCG INHALER INHALATION SCH ×2 (07:28→19:43)
[2021-12-05] MEDS: ALBUTEROL NEBULIZED 2.5 MG/3 ML INHALATION SCH ×2 (07:28→19:43)
[2021-12-05] MEDS: INSULIN ASPART (NovoLOG) 100 UNIT/ML VIAL SQ SCH ×4 (07:45→22:46)
[2021-12-05] MEDS: LORATADINE 10 MG TAB PO SCH (08:16)
[2021-12-05] MEDS: PANTOPRAZOLE 40 MG TABLET PO SCH (08:16)
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
[2021-12-05 11:24] LABS: Glucose,Whole Blood 116 mg/dL (70-110)
[2021-12-05] MEDS ORDERED: DEXTROSE 50% SYRINGE 50 ML IVP PRN ×2 (12:00)
[2021-12-05] MEDS: FAMOTIDINE 20 MG TAB PO SCH (15:04)
[2021-12-05] MEDS: HEPARIN SODIUM,PORCINE/PF 5,000 UNIT/0.5 ML SYRINGE SQ SCH (15:04)
[2021-12-05 17:04] LABS: Glucose,Whole Blood 109 mg/dL (70-110)
[2021-12-05 20:09] LABS: Glucose,Whole Blood 117 mg/dL (70-110)
[2021-12-06] MEDS: HEPARIN SODIUM,PORCINE/PF 5,000 UNIT/0.5 ML SYRINGE SQ SCH ×3 (00:17→16:16)
[2021-12-06] MEDS: SODIUM CHLORIDE 0.9% 1,000 ML IV SCH ×3 (03:35→14:12)
[2021-12-06 07:14] LABS: Glucose,Whole Blood 89 mg/dL (70-110)
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
[2021-12-06] MEDS: SYMBICORT 160-4.5 MCG INHALER INHALATION SCH ×2 (09:00→20:47)
[2021-12-06] MEDS: ALBUTEROL NEBULIZED 2.5 MG/3 ML INHALATION SCH ×2 (09:05→20:47)
[2021-12-06] MEDS: ACETAMINOPHEN TAB 325 MG TAB PO PRN (09:46)
[2021-12-06] MEDS: amLODIPine 10 MG TAB PO SCH (09:46)
[2021-12-06] MEDS: PANTOPRAZOLE 40 MG TABLET PO SCH (09:46)
[2021-12-06] MEDS: FAMOTIDINE 20 MG TAB PO SCH (09:46)
[2021-12-06] MEDS: CLOPIDOGREL 75 MG TAB PO SCH (09:50)
[2021-12-06 09:56] LABS: ALT 56 U/L (8-44); AST 43 U/L (13-35); African American GFR (CKD) 21.7 (60.0-200.0); Alkaline Phosphatase 94 U/L (41-126); BUN/Creat Ratio 11.81 Ratio (12.00-20.00); Blood Urea Nitrogen 30.7 mg/dL (9.0-27.0); Calcium 8.3 mg/dL (8.7-10.3); Carbon Dioxide 15.7 mmol/L (20.0-27.5); Chloride 112 mmol/L (96-109); Globulin 2.3 g/dL (1.6-3.3); Glucose 92 mg/dL (70-110); Non-African American GFR(CKD) 18.7 (60.0-200.0); Potassium 3.5 mmol/L (3.5-5.5); Sodium 142 mmol/L (135-145); Total Bilirubin <0.15 mg/dL (0.30-1.20); Total Protein 5.3 g/dL (6.2-8.2)
[2021-12-06 10:57] LABS: HCT 33.8 % (37.2-46.3); HGB 9.9 g/dL (12.0-15.0); MCH 22.9 pg (27.0-32.0); MCHC 29.3 g/dL (32.0-37.0); MCV 78.2 fL (80.0-97.0); NRBC Per 100 WBC 0 /100 WBCS (0.0-0.0); Platelet Count 115 X 10*3/uL (140-440); RBC 4.32 X 10*6/uL (4.10-5.20); RDW 17.2 % (11.5-14.5); WBC 11.53 X 10*3/uL (4.50-10.00)
[2021-12-06 10:58] LABS: RBC Morphology NORMAL
[2021-12-06] MEDS: INSULIN ASPART (NovoLOG) 100 UNIT/ML VIAL SQ SCH ×4 (11:18→21:04)
[2021-12-06] MEDS: LORATADINE 10 MG TAB PO SCH (11:24)
[2021-12-06] MEDS: METOPROLOL TARTRATE 25 MG TAB PO SCH ×2 (11:24→20:27)
[2021-12-06 12:31] LABS: Glucose,Whole Blood 93 mg/dL (70-110)
--- NOTE | 2021-12-06 14:33 | US ---
EXAMINATION TYPE: US kidneys/renal and bladder DATE OF EXAM: 12/06/2021 COMPARISON: 06/23/2019 CLINICAL HISTORY: 66-year-old female UTI and bacteremia. TECHNIQUE: Multiple sonographic images of the kidneys and bladder are obtained. FINDINGS: EXAM MEASUREMENTS: Right Kidney: 9.0 x 5.6 x 5.2 cm Left Kidney: 7.2 x 2.7 x 3.8 cm Right Kidney: Hypoechoic area seen at the lower pole measures 3.3 x 3.5 x 4.2 cm. Previously, and mikala earing cyst here measured 8 mm. No hydronephrosis. Left Kidney: Borders limited secondary to thin and echogenic cortex. No hydronephrosis. Bladder: Underdistention limits evaluation. Bilateral Jets seen: no IMPRESSION: 1. No hydronephrosis. Changes of chronic medical renal disease more so on the left. 2. Possible enlarging 4.2 cm cortical lesion at the lower pole of the right kidney. Recommend further contrast-enhanced CT evaluation.
--- NOTE | 2021-12-06 15:33 | P.PN ---
Subjective Progress Note Date: 12/06/21 66-year-old pleasant female was brought in because of altered mental status. Patient is usually alert oriented 3. Patient is presently alert oriented 3. Patient is found to have a urinary tract infection with significantly abnormal uterine patient also had fever of 103. Patient blood cultures came back positive for gram-negative bacilli today upon questioning patient did complain for last couple days that she was having burning sensation. Patient was a confused and hallucinating yesterday. Patient also found to have elevated creatinine of 2.2 baseline appears to be around 1.3. Patient is a diabetic. Patient was started on levofloxacin which was later switched to Rocephin. Patient to presently doesn't have any fevers. 12/06/2021 Patient is seen in follow-up continues to have some confusion although appears more alert today. Patient is continued on IV antibiotics in the form of ceftriaxone with infectious disease following closely. Blood culture showing E. coli and will repeat blood cultures to monitor for clearance of bacteremia. Patient's elevated creatinine has worsened and is maintained on gentle IV hydration and will consult nephrology and appreciate input and recommendations. Patient continues with weakness and recommend PT/OT to follow. Case management is also following and working on possible ECF for continued PT/OT therapy for strengthening mobility. Patient is currently afebrile and denies any chest pain or shortness of breath. Patient denies nausea or vomiting and has been tolerating diet. Recommend continue monitoring Accu-Cheks before meals and at bedtime and to continue with sliding scale at this time. An ultrasound of the kidneys urinary bladder has been ordered and pending. Review of systems: Constitutional: No reports of fatigue, fever, or chills Cardiovascular: No reports of chest pain or palpitations Respiratory: No reports of shortness of breath or cough GI: No reports of nausea, vomiting, or diarrhea : reports of dysuria no retention Neurovascular: reports of weakness All medications have been reviewed. Active Medications Acetaminophen (Acetaminophen Tab 325 Mg Tab) 650 mg PO Q6HR PRN PRN Reason: Mild Pain or Fever > 100.5 Last Admin: 12/06/21 09:46 Dose: 650 mg Albuterol Sulfate (Albuterol Nebulized 2.5 Mg/3 Ml) 2.5 mg INHALATION RT-BID [facility]ASMO Last Admin: 12/06/21 09:05 Dose: Not Given Amlodipine Besylate (Amlodipine 10 Mg Tab) 10 mg PO DAILY [facility] Last Admin: 12/06/21 09:46 Dose: 10 mg Atorvastatin Calcium (Atorvastatin 40 Mg Tab) 40 mg PO HS [facility] Last Admin: 12/05/21 20:20 Dose: 40 mg Budesonide/Formoterol Fumarate (Symbicort 160-4.5 Mcg Inhaler) 2 puff INHALATIO N RT-BID [facility] Last Admin: 12/06/21 09:00 Dose: 2 puff Clopidogrel Bisulfate (Clopidogrel 75 Mg Tab) 75 mg PO DAILY [facility] Last Admin: 12/06/21 09:50 Dose: 75 mg Dextrose/Water (Dextrose 50% Syringe 50 Ml) 25 ml IVP PER PROTOCOL PRN; Protocol PRN Reason: Hypoglycemia Dextrose/Water (Dextrose 50% Syringe 50 Ml) 50 ml IVP PER PROTOCOL PRN; Protocol PRN Reason: Hypoglycemia Famotidine (Famotidine 20 Mg Tab) 20 mg PO DAILY [facility] Last Admin: 12/06/21 09:46 Dose: 20 mg Heparin Sodium (Porcine) (Heparin Sodium,Porcine/Pf 5,000 Unit/0.5 Ml Syringe) 5,000 unit SQ Q8HR [facility] Last Admin: 12/06/21 09:50 Dose: 5,000 unit Sodium Chloride (Saline 0.9%) 1,000 mls @ 100 mls/hr IV .Q10H [facility] Last Admin: 12/06/21 04:34 Dose: 100 mls/hr Ceftriaxone Sodium 2 gm/ (Sodium Chloride) 50 mls @ 100 mls/hr IVPB Q24HR [facility]; Protocol Last Admin: 12/06/21 07:14 Dose: 100 mls/hr Insulin Aspart (Insulin Aspart (Novolog) 100 Unit/Ml Vial) 0 unit SQ ACHS [facility]; Protocol Last Admin: 12/06/21 12:44 Dose: Not Given Loratadine (Loratadine 10 Mg Tab) 10 mg PO DAILY [facility] Last Admin: 12/06/21 11:24 Dose: 10 mg Metoprolol Tartrate (Metoprolol Tartrate 25 Mg Tab) 25 mg PO BID [facility] Last Admin: 12/06/21 11:24 Dose: 25 mg Naloxone HCl (Naloxone 0.4 Mg/Ml 1 Ml Vial) 0.2 mg IV Q2M PRN PRN Reason: Opioid Reversal Pantoprazole Sodium (Pantoprazole 40 Mg Tablet) 40 mg PO AC-BRKFST [facility] Last Admin: 12/06/21 09:46 Dose: 40 mg Topiramate (Topiramate 25 Mg Tab) 50 mg PO HS [facility] Last Admin: 12/05/21 20:20 Dose: 50 mg PHYSICAL EXAMINATION: GENERAL: The patient is alert and oriented x2, Well developed, well nourished. HEENT: Pupils are round and equally reacting to light. EOMI. No scleral icterus. No conjunctival pallor. Normocephalic, atraumatic. No pharyngeal erythema. No thyromegaly. CARDIOVASCULAR: S1 and S2 muffled PULMONARY: Diminished breath sounds bilaterally with no wheezing or rhonchi noted ABDOMEN: Soft, nontender, nondistended, normoactive bowel sounds. No palpable organomegaly. MUSCULOSKELETAL: No joint swelling or deformity. EXTREMITIES: No cyanosis, clubbing, or pedal edema. NEUROLOGICAL: Gross neurological examination did not reveal any focal deficits. Diffuse weakness SKIN: No rashes. Assessment: -Severe sepsis secondary to urinary tract infection/pyelonephritis. -Acute renal failure probably secondary to sepsis and possibility of acute tubul ar necrosis -Mild hypovolemic hyponatremia -Mild transaminitis secondary to sepsis -Coronary artery disease -COPD without any acute exacerbation -Type 2 diabetes mellitus -Cerebral vascular accident in the past -Depression -Nicotine use: Counseling was provided -DVT prophylaxis: Subcutaneous heparin -Full code Plan: Recommend continue with IV antibiotics and close monitoring with infectious di sease following. Cultures showing E. coli in the blood and will repeat blood cultures daily to monitor for clearance of bacteremia Recommend continue with IV ceftriaxone per ID recommendations Recommend continue with gentle IV hydration and kidney functions are worsening and have consulted nephrology and appreciate input and recommendations Recommend continue monitoring Accu-Cheks before meals and at bedtime and continue sliding scale Recommend follow-up repeat labs Will have PT/OT evaluate the patient Due to multiple complex medical issues, prognosis is guarded Case management following this patient will likely need ECF on discharge The impression and plan of care has been dictated by Milly Montoya, Nurse Practitioner as directed. Dr. Michael MD I have performed a history and examination and MDM of this patient, discussed the same with the dictator, and agree with the dictator's assessment and plan as written ,documented as a scribe. Based on total visit time, I have performed more than 50% of the visit. Objective - Vital Signs Vital signs: Vital Signs Temp 99.5 F 12/06/21 06:54 Pulse 60 12/06/21 06:54 Resp 12 12/06/21 06:54 BP 150/65 12/06/21 06:54 Pulse Ox 93 L 12/06/21 06:54 FiO2 Intake & Output 12/05/21 12/06/21 12/06/21 18:59 06:59 18:59 Intake Total 560 Balance 560 Intake: Oral 560 Other: Voiding Method Diaper Diaper Toilet Diaper # Voids 3 2 - Labs CBC & Chem 7: 12/06/21 05:58 12/06/21 05:58 Labs: Abnormal Lab Results - Last 24 Hours (Table) 12/05/21 12/05/21 Range/Units 11:23 20:07 POC Glucose (mg/dL) 116 H 117 H (70-110) mg/dL Microbiology - Last 24 Hours (Table) 12/04/21 15:15 Blood Culture Gram Stain - Preliminary Blood Blood Culture - Preliminary Escherichia coli 12/04/21 15:00 Blood Culture Gram Stain - Preliminary Blood 12/04/21 15:15 Blood Culture - Final Blood 12/04/21 15:00 Blood Culture - Final Blood
[2021-12-06 17:22] LABS: Glucose,Whole Blood 98 mg/dL (70-110)
[2021-12-06] MEDS: ATORVASTATIN 40 MG TAB PO SCH (20:27)
[2021-12-06] MEDS: TOPIRAMATE 25 MG TAB PO SCH (20:28)
[2021-12-06] MEDS: DEXTROSE 5% IN WATER 1,000 ML with SODIUM BICARB (1 MEQ/ML) 150 ML IV SCH (20:30)
[2021-12-06 20:46] LABS: Glucose,Whole Blood 117 mg/dL (70-110)
[2021-12-07] MEDS: HEPARIN SODIUM,PORCINE/PF 5,000 UNIT/0.5 ML SYRINGE SQ SCH ×3 (00:02→17:55)
[2021-12-07] MEDS: ACETAMINOPHEN TAB 325 MG TAB PO PRN ×2 (01:03→08:44)
[2021-12-07 07:08] LABS: Glucose,Whole Blood 79 mg/dL (70-110)
[2021-12-07 08:16] LABS: Anisocytosis Slight; Basophils % (A) 0 %; Eosinophils # (A) 0.1 k/uL (0-0.7); Eosinophils % (A) 2 %; HCT 32.7 % (34.0-46.0); HGB 10.1 gm/dL (11.4-16.0); Hypochromasia Moderate; Lymphocytes # (A) 2.1 k/uL (1.0-4.8); Lymphocytes % (A) 26 %; MCH 24.4 pg (25.0-35.0); MCV 78.9 fL (80.0-100.0); Mean Platelet Volume 10.1; Microcytosis Slight; Monocytes # (A) 0.4 k/uL (0-1.0); Monocytes % (A) 5 %; Neutrophils # (A) 5.1 k/uL (1.3-7.7); Neutrophils % (A) 64 %; Platelet Count 127 k/uL (150-450); RBC 4.15 m/uL (3.80-5.40); RDW 16.6 % (11.5-15.5); WBC 7.9 k/uL (3.8-10.6)
[2021-12-07] MEDS: INSULIN ASPART (NovoLOG) 100 UNIT/ML VIAL SQ SCH ×4 (08:16→21:39)
[2021-12-07] MEDS: CLOPIDOGREL 75 MG TAB PO SCH (08:46)
[2021-12-07] MEDS: LORATADINE 10 MG TAB PO SCH (08:46)
[2021-12-07] MEDS: FAMOTIDINE 20 MG TAB PO SCH (08:46)
[2021-12-07] MEDS: amLODIPine 10 MG TAB PO SCH (08:46)
[2021-12-07] MEDS: PANTOPRAZOLE 40 MG TABLET PO SCH (08:46)
[2021-12-07] MEDS: METOPROLOL TARTRATE 25 MG TAB PO SCH ×2 (08:46→21:39)
[2021-12-07] MEDS: SYMBICORT 160-4.5 MCG INHALER INHALATION SCH ×2 (09:00→20:03)
[2021-12-07] MEDS: ALBUTEROL NEBULIZED 2.5 MG/3 ML INHALATION SCH ×2 (09:00→20:02)
[2021-12-07 10:11] LABS: African American GFR (CKD) 20.7 (60.0-200.0); Anion Gap 9.6 mmol/L (10.00-18.00); BUN/Creat Ratio 10.63 Ratio (12.00-20.00); Blood Urea Nitrogen 28.7 mg/dL (9.0-27.0); Calcium 8.2 mg/dL (8.7-10.3); Carbon Dioxide 21.4 mmol/L (20.0-27.5); Magnesium 2.1 mg/dL (1.5-2.4); Non-African American GFR(CKD) 17.9 (60.0-200.0); Potassium 3.5 mmol/L (3.5-5.5)
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
[2021-12-07 12:33] LABS: Glucose,Whole Blood 129 mg/dL (70-110)
--- NOTE | 2021-12-07 15:14 | CT ---
EXAMINATION TYPE: CT abdomen pelvis wo con DATE OF EXAM: 12/07/2021 COMPARISON: 12/23/2018 HISTORY: 66-year-old female Right renal lesion. CT DLP: 1263 mGycm. Automated exposure control for dose reduction was used. TECHNIQUE: Contiguous axial scanning of the abdomen and pelvis without IV contrast. Coronal and sagit alejandrina reconstructions performed. FINDINGS: Heart mildly enlarged. LAD coronary calcifications. Trace bilateral pleural effusions. Correlate with BNP/fluid overload state. Aortobiiliac endovascular stent graft is noted. Patency not assessed on this noncontrast study. Gener ator device left posterior upper back region during the T12-L1 interlaminar space and spinal stimulat or array along the dorsal lower thoracic spinal canal. Facet arthropathy lower lumbar spine. Moderate degenerative disc disease lower thoracic spine. Possible subtle contour nodularity. Further correlation to exclude underlying cirrhosis. Liver mildly enlarged at 18.6 cm. Spleen mildly enlarged at 14.1 cm. Mild thickening of bilateral adrenal glands without discrete nodularity. Atrophic left kidney, decreased in size from 2019, probably due to renal artery stenosis. 5 mm nonobstructive right lower pole renal calculus. A lower pole cyst measures 2.4 cm, increased fro m 1.2 cm, previously. There is asymmetric perinephric edema on this side. No ureteral stone is identi fied. Strandy edema tracks down the right retroperitoneum. No dilated small bowel, free fluid, or free air. Normal appendix. Mild overriding. No pericolonic inflammatory change. Bladder partially distended. Mild wall thickening. 3 mural-based focus of air anteriorly within the b ladder wall some intraluminal nondependent air. Clinically correlate for any recent instrumentation. Mild presacral edema. Uterus anteverted. Left ovary visualized. Right ovary not clearly needed due to clustered bowel loops . Bones: Mild degenerative change of the hips. Facet arthropathy mid to lower lumbar spine. IMPRESSION: 1. Right-sided perinephric fat stranding and edema asymmetrically tracking down the right retroperit oneum. There is no hydronephrosis or obstructing stone seen. Correlate for possible pyelonephritis. T here is a nonobstructive 5 mm right renal calculus. 2. Tiny focus of air either within the nondependent lumen or the anterior bladder wall may indicate concurrent cystitis. 3. Mild cardiomegaly, trace pleural effusions, mild anasarca, and presacral edema. Correlate for pot ential third spacing/fluid overload state or mild CHF. 4. The left kidney has now becoming atrophic compared to 2019. There may be underlying left-sided re nal artery stenosis. 5. Aortobiiliac endovascular stent graft. Patency is not assessed on this noncontrast study.
[2021-12-07 17:01] LABS: Glucose,Whole Blood 146 mg/dL (70-110)
[2021-12-07] MEDS: DEXTROSE 5% IN WATER 1,000 ML with SODIUM BICARB (1 MEQ/ML) 150 ML IV SCH (17:21)
[2021-12-07 19:58] LABS: Glucose,Whole Blood 158 mg/dL (70-110)
--- NOTE | 2021-12-07 20:39 | P.PN ---
Subjective Progress Note Date: 12/07/21 66-year-old pleasant female was brought in because of altered mental status. Patient is usually alert oriented 3. Patient is presently alert oriented 3. Patient is found to have a urinary tract infection with significantly abnormal uterine patient also had fever of 103. Patient blood cultures came back positive for gram-negative bacilli today upon questioning patient did complain for last couple days that she was having burning sensation. Patient was a confused and hallucinating yesterday. Patient also found to have elevated creatinine of 2.2 baseline appears to be around 1.3. Patient is a diabetic. Patient was started on levofloxacin which was later switched to Rocephin. Patient to presently doesn't have any fevers. 12/06/2021 Patient is seen in follow-up continues to have some confusion although appears more alert today. Patient is continued on IV antibiotics in the form of ceftriaxone with infectious disease following closely. Blood culture showing E. coli and will repeat blood cultures to monitor for clearance of bacteremia. Patient's elevated creatinine has worsened and is maintained on gentle IV hydration and will consult nephrology and appreciate input and recommendations. Patient continues with weakness and recommend PT/OT to follow. Case management is also following and working on possible ECF for continued PT/OT therapy for strengthening mobility. Patient is currently afebrile and denies any chest pain or shortness of breath. Patient denies nausea or vomiting and has been tolerating diet. Recommend continue monitoring Accu-Cheks before meals and at bedtime and to continue with sliding scale at this time. An ultrasound of the kidneys urinary bladder has been ordered and pending. 12/07/2021 Patient is evaluated today and appears more awake and alert. Multiple medical consultations following including nephrology and patient has been placed on bicarb drip. IV fluids discontinued. Patient also continued on Ceftraxone with ID following for uti ecoli with bacteremia. Recommend continuing daily blood cultures to monitor for clearance of bacteremia. Patient also continues with weakness and recommend working with PT/OT daily. Case management following as patient will likely need ecf for continued strength and mobility. Patient is afebrile and denies chest pain or shortness of breath. Patient tolerating diet and denies nausea or vomiting. Review of systems: Constitutional: No reports of fatigue, fever, or chills Cardiovascular: No reports of chest pain or palpitations Respiratory: No reports of shortness of breath or cough GI: No reports of nausea, vomiting, or diarrhea : reports of dysuria and lower pelvic pain, no retention Neurovascular: reports of weakness All medications have been reviewed. Active Medications Acetaminophen (Acetaminophen Tab 325 Mg Tab) 650 mg PO Q6HR PRN PRN Reason: Mild Pain or Fever > 100.5 Last Admin: 12/07/21 08:44 Dose: 650 mg Albuterol Sulfate (Albuterol Nebulized 2.5 Mg/3 Ml) 2.5 mg INHALATION RT-BID [facility] Last Admin: 12/07/21 20:02 Dose: Not Given Amlodipine Besylate (Amlodipine 10 Mg Tab) 10 mg PO DAILY [facility] Last Admin: 12/07/21 08:46 Dose: 10 mg Atorvastatin Calcium (Atorvastatin 40 Mg Tab) 40 mg PO HS [facility] Last Admin: 12/06/21 20:27 Dose: 40 mg Budesonide/Formoterol Fumarate (Symbicort 160-4.5 Mcg Inhaler) 2 puff INHALATION RT-BID [facility] Last Admin: 12/07/21 20:03 Dose: Not Given Clopidogrel Bisulfate (Clopidogrel 75 Mg Tab) 75 mg PO DAILY [facility] Last Admin: 12/07/21 08:46 Dose: 75 mg Dextrose/Water (Dextrose 50% Syringe 50 Ml) 25 ml IVP PER PROTOCOL PRN; Protocol PRN Reason: Hypoglycemia Dextrose/Water (Dextrose 50% Syringe 50 Ml) 50 ml IVP PER PROTOCOL PRN; Protocol PRN Reason: Hypoglycemia Famotidine (Famotidine 20 Mg Tab) 20 mg PO DAILY [facility] Last Admin: 12/07/21 08:46 Dose: 20 mg Heparin Sodium (Porcine) (Heparin Sodium,Porcine/Pf 5,000 Unit/0.5 Ml Syringe) 5,000 unit SQ Q8HR [facility] Last Admin: 12/07/21 17:55 Dose: 5,000 unit Ceftriaxone Sodium 2 gm/ (Sodium Chloride) 50 mls @ 100 mls/hr IVPB Q24HR [facility]; Protocol Last Admin: 12/07/21 10:48 Dose: 100 mls/hr Sodium Bicarbonate 150 ml/ (Dextrose/Water) 1,150 mls @ 75 mls/hr IV .[id number] [facility] Last Admin: 12/07/21 17:21 Dose: 75 mls/hr Insulin Aspart (Insulin Aspart (Novolog) 100 Unit/Ml Vial) 0 unit SQ ACHS [facility]; Protocol Last Admin: 12/07/21 17:53 Dose: Not Given Loratadine (Loratadine 10 Mg Tab) 10 mg PO DAILY [facility] Last Admin: 12/07/21 08:46 Dose: 10 mg Metoprolol Tartrate (Metoprolol Tartrate 25 Mg Tab) 25 mg PO BID [facility] Last Admin: 12/07/21 08:46 Dose: 25 mg Naloxone HCl (Naloxone 0.4 Mg/Ml 1 Ml Vial) 0.2 mg IV Q2M PRN PRN Reason: Opioid Reversal Pantoprazole Sodium (Pantoprazole 40 Mg Tablet) 40 mg PO [id number] [facility] Last Admin: 12/07/21 08:46 Dose: 40 mg Topiramate (Topiramate 25 Mg Tab) 50 mg PO HS [facility] Last Admin: 12/06/21 20:28 Dose: 50 mg PHYSICAL EXAMINATION: GENERAL: The patient is alert and oriented x2-3, Well developed, well nourished. HEENT: Pupils are round and equally reacting to light. EOMI. No scleral icterus. No conjunctival pallor. Normocephalic, atraumatic. No pharyngeal erythema. No thyromegaly. CARDIOVASCULAR: S1 and S2 muffled PULMONARY: Diminished breath sounds bilaterally with no wheezing or rhonchi noted ABDOMEN: Soft, mildly tender in the left and right lower quadrant, nondistended, normoactive bowel sounds. No palpable organomegaly. MUSCULOSKELETAL: No joint swelling or deformity. EXTREMITIES: No cyanosis, clubbing, or pedal edema. NEUROLOGICAL: Gross neurological examination did not reveal any focal deficits. Diffuse weakness SKIN: No rashes. Assessment: -Severe sepsis secondary to urinary tract infection/pyelonephritis. -Acute renal failure probably secondary to sepsis and possibility of acute tubular necrosis -Mild hypervolemic hyponatremia -Mild transaminitis secondary to sepsis -Coronary artery disease -COPD without any acute exacerbation -Type 2 diabetes mellitus -Cerebral vascular accident in the past -Depression -Nicotine use: Counseling was provided -DVT prophylaxis: Subcutaneous heparin -Full code Plan: Recommend continue with IV antibiotics and close monitoring with infectious disease following. Cultures showing E. coli in the blood and will repeat blood cultures daily to monitor for clearance of bacteremia. Most recent culture is negative thus far for 24 hours. Recommend continue with IV ceftriaxone per ID recommendations Recommend continue with sodium bicarb and neprhology following and ordered ct abd pelvis Recommend continue monitoring Accu-Cheks before meals and at bedtime and continue sliding scale Recommend follow-up repeat labs PT/OT to follow Due to multiple complex medical issues, prognosis is guarded Case management following this patient will likely need ECF on discharge The impression and plan of care has been dictated by Milly Montoya, Nurse Practitioner as directed. Dr. Michael MD I have performed a history and examination and MDM of this patient, discussed the same with the dictator, and agree with the dictator's assessment and plan as written ,documented as a scribe. Based on total visit time, I have performed more than 50% of the visit. Objective - Vital Signs Vital signs: Vital Signs Temp 98.2 F 12/07/21 07:31 Pulse 59 L 12/07/21 07:31 Resp 13 12/07/21 07:31 BP 150/83 12/07/21 07:31 Pulse Ox 97 12/07/21 07:31 FiO2 Intake & Output 12/06/21 12/07/21 12/07/21 18:59 06:59 18:59 Intake Total 1250 1000 Balance 1250 1000 Intake: Intake, IV Titration 1250 1000 Amount Dextrose 5% in Water 1, 900 000 ml @ 75 mls/hr IV . [id number] ERASMO with Sodium Bicarb (1 Meq/ml) 150 ml Rx#:[id number] Sodium Chloride 0.9% 1, 1200 000 ml @ 100 mls/hr IV . Q10H ERASMO Rx#:[id number] cefTRIAXone 2 gm In 50 100 Sodium Chloride 0.9% 50 ml @ 100 mls/hr IVPB Q24HR ERASMO Rx#:[id number] Other: Voiding Method Toilet Toilet Diaper Diaper # Voids 1 # Bowel Movements 1 1 - Labs CBC & Chem 7: 12/07/21 06:10 12/07/21 06:10 Labs: Abnormal Lab Results - Last 24 Hours (Table) 12/06/21 12/06/21 12/07/21 Range/Units 05:58 20:44 06:10 WBC 11.53 H (4.50-10.00) X 10*3/uL Hgb 9.9 L 10.1 L (12.0-15.0) g/dL Hct 33.8 L 32.7 L (37.2-46.3) % MCV 78.2 L 78.9 L (80.0-97.0) fL MCH 22.9 L 24.4 L (27.0-32.0) pg MCHC 29.3 L (32.0-37.0) g/dL RDW 17.2 H 16.6 H (11.5-14.5) % Plt Count 115 L 127 L (140-440) X 10*3/uL Plt Count Comment DECREASED A POC Glucose (mg/dL) 117 H (70-110) mg/dL Microbiology - Last 24 Hours (Table) 12/04/21 15:00 Blood Culture Gram Stain - Preliminary Blood Blood Culture - Preliminary Gram Neg Bacilli 12/04/21 15:15 Blood Culture Gram Stain - Preliminary Blood Blood Culture - Preliminary Escherichia coli 12/04/21 15:08 Urine Culture - Preliminary Urine,Clean Catch Gram Neg Bacilli
[2021-12-07] MEDS: ATORVASTATIN 40 MG TAB PO SCH (21:39)
[2021-12-07] MEDS: TOPIRAMATE 25 MG TAB PO SCH (21:39)
--- NOTE | 2021-12-07 22:51 | P.PN ---
Subjective Progress Note Date: 12/06/21 Principal diagnosis: UTI and bacteremia patient is a 66-year old female with multiple comorbidities presenting to the hospital with mental status changes has been diagnosed with the sepsis secondary to the right-sided pyelonephritis patient also have a gram- negative bacteremia. On today's evaluation that is 12/06/2021, the patient denies having any fever or any chills, the patient is breathing comfortably denies any chest pain or shortness of breath or cough no abdominal pain no diarrhea Objective - Vital Signs Vital signs: Vital Signs Temp 97.6 F 12/06/21 12:51 Pulse 54 L 12/06/21 12:51 Resp 14 12/06/21 12:51 BP 113/68 12/06/21 12:51 Pulse Ox 98 12/06/21 12:51 FiO2 Intake & Output 12/05/21 12/06/21 12/06/21 18:59 06:59 18:59 Intake Total 560 Balance 560 Intake: Oral 560 Other: Voiding Method Diaper Diaper Toilet Diaper # Voids 3 2 # Bowel Movements 1 - Exam GENERAL DESCRIPTION: Middle-age female lying in bed in no distress RESPIRATORY SYSTEM: Unlabored breathing , decreased breath sounds at bases HEART: S1 S2 regular rate and rhythm , ABDOMEN: Soft , no tenderness EXTREMITIES: No edema feet - Labs CBC & Chem 7: 12/07/21 06:10 12/07/21 06:10 Labs: Abnormal Lab Results - Last 24 Hours (Table) 12/05/21 12/06/21 12/06/21 Range/Units 20:07 05:58 05:58 WBC 11.53 H (4.50-10.00) X 10*3/uL Hgb 9.9 L (12.0-15.0) g/dL Hct 33.8 L (37.2-46.3) % MCV 78.2 L (80.0-97.0) fL MCH 22.9 L (27.0-32.0) pg MCHC 29.3 L (32.0-37.0) g/dL RDW 17.2 H (11.5-14.5) % Plt Count 115 L (140-440) X 10*3/uL Plt Count Comment DECREASED A Chloride 112 H (96-109) mmol/L Carbon Dioxide 15.7 L (20.0-27.5) mmol/L BUN 30.7 H (9.0-27.0) mg/dL Creatinine 2.6 H (0.6-1.5) mg/dL Est GFR (CKD-EPI)AfAm 21.7 L (60.0-200.0) Est GFR (CKD-EPI)NonAf 18.7 L (60.0-200.0) BUN/Creatinine Ratio 11.81 L (12.00-20.00) Ratio POC Glucose (mg/dL) 117 H (70-110) mg/dL Calcium 8.3 L (8.7-10.3) mg/dL Total Bilirubin <0.15 L (0.30-1.20) mg/dL AST 43 H (13-35) U/L ALT 56 H (8-44) U/L Total Protein 5.3 L (6.2-8.2) g/dL Albumin 3.0 L (3.8-4.9) g/dL Albumin/Globulin Ratio 1.30 L (1.60-3.17) g/dL Microbiology - Last 24 Hours (Table) 12/04/21 15:00 Blood Culture Gram Stain - Preliminary Blood Blood Culture - Preliminary Gram Neg Bacilli 12/04/21 15:15 Blood Culture Gram Stain - Preliminary Blood Blood Culture - Preliminary Escherichia coli 12/04/21 15:08 Urine Culture - Preliminary Urine,Clean Catch Gram Neg Bacilli Assessment and Plan (1) Sepsis Current Visit: Yes Status: Acute Code(s): A41.9 - SEPSIS, UNSPECIFIED ORGANISM SNOMED Code(s): 71158561 (2) Urinary tract infection Current Visit: Yes Status: Acute Code(s): N39.0 - URINARY TRACT INFECTION, SITE NOT SPECIFIED SNOMED Code(s): 34704484 Plan: 1patient presented to hospital with sepsis and respiratory have fever elevated white count positive UA source is likely urinary tract infection concern for possible pyelonephritis likely from enteric gram-negative pathogen. 2patient to continue with Rocephin 2 g daily. 3 ultrasound of the kidney and bladder area did show abnormality and recommending a CT which has been ordered for tomorrow Time with Patient: Less than 30
--- NOTE | 2021-12-07 22:52 | P.PN ---
Subjective Progress Note Date: 12/07/21 Principal diagnosis: UTI and bacteremia patient is a 66-year old female with multiple comorbidities presenting to the hospital with mental status changes has been diagnosed with the sepsis secondary to the right-sided pyelonephritis patient also have a gram- negative bacteremia. On today's evaluation that is 12/07/2021, the patient is afebrile today, the patient is breathing comfortably on room air, the patient denies any chest pain or shortness of breath or cough no abdominal pain no diarrhea Objective - Vital Signs Vital signs: Vital Signs Temp 98.2 F 12/07/21 07:31 Pulse 59 L 12/07/21 12:32 Resp 16 12/07/21 12:32 BP 150/83 12/07/21 07:31 Pulse Ox 97 12/07/21 07:31 FiO2 Intake & Output 12/06/21 12/07/21 12/07/21 18:59 06:59 18:59 Intake Total 1250 1000 296 Balance 1250 1000 296 Intake: Intake, IV Titration 1250 1000 Amount Dextrose 5% in Water 1, 900 000 ml @ 75 mls/hr IV . [id number] ERASMO with Sodium Bicarb (1 Meq/ml) 150 ml Rx#:[id number] Sodium Chloride 0.9% 1, 1200 000 ml @ 100 mls/hr IV . Q10H ERASMO Rx#:[id number] cefTRIAXone 2 gm In 50 100 Sodium Chloride 0.9% 50 ml @ 100 mls/hr IVPB Q24HR ERASMO Rx#:[id number] Oral 296 Other: Voiding Method Toilet Toilet Toilet Diaper Diaper Diaper # Voids 1 # Bowel Movements 1 1 - Exam GENERAL DESCRIPTION: Middle-age female lying in bed in no distress RESPIRATORY SYSTEM: Unlabored breathing , decreased breath sounds at bases HEART: S1 S2 regular rate and rhythm , ABDOMEN: Soft , no tenderness EXTREMITIES: No edema feet - Labs CBC & Chem 7: 12/07/21 06:10 12/07/21 06:10 Labs: Abnormal Lab Results - Last 24 Hours (Table) 12/06/21 12/07/21 12/07/21 Range/Units 20:44 06:10 06:10 Hgb 10.1 L (11.4-16.0) gm/dL Hct 32.7 L (34.0-46.0) % MCV 78.9 L (80.0-100.0) fL MCH 24.4 L (25.0-35.0) pg RDW 16.6 H (11.5-15.5) % Plt Count 127 L (150-450) k/uL Chloride 114 H (96-109) mmol/L Anion Gap 9.60 L (10.00-18.00) mmol/L BUN 28.7 H (9.0-27.0) mg/dL Creatinine 2.7 H (0.6-1.5) mg/dL Est GFR (CKD-EPI)AfAm 20.7 L (60.0-200.0) Est GFR (CKD-EPI)NonAf 17.9 L (60.0-200.0) BUN/Creatinine Ratio 10.63 L (12.00-20.00) Ratio POC Glucose (mg/dL) 117 H (70-110) mg/dL Calcium 8.2 L (8.7-10.3) mg/dL 12/07/21 Range/Units 12:22 Hgb (11.4-16.0) gm/dL Hct (34.0-46.0) % MCV (80.0-100.0) fL MCH (25.0-35.0) pg RDW (11.5-15.5) % Plt Count (150-450) k/uL Chloride (96-109) mmol/L Anion Gap (10.00-18.00) mmol/L BUN (9.0-27.0) mg/dL Creatinine (0.6-1.5) mg/dL Est GFR (CKD-EPI)AfAm (60.0-200.0) Est GFR (CKD-EPI)NonAf (60.0-200.0) BUN/Creatinine Ratio (12.00-20.00) Ratio POC Glucose (mg/dL) 129 H (70-110) mg/dL Calcium (8.7-10.3) mg/dL Microbiology - Last 24 Hours (Table) 12/04/21 15:00 Blood Culture Gram Stain - Final Blood Blood Culture - Final Escherichia coli 12/04/21 15:15 Blood Culture Gram Stain - Final Blood Blood Culture - Final Escherichia coli 12/06/21 10:03 Blood Culture - Preliminary Blood No Growth after 24 hours 12/04/21 15:08 Urine Culture - Preliminary Urine,Clean Catch Escherichia coli Assessment and Plan (1) Sepsis Current Visit: Yes Status: Acute Code(s): A41.9 - SEPSIS, UNSPECIFIED ORGANISM SNOMED Code(s): 63789132 (2) Urinary tract infection Current Visit: Yes Status: Acute Code(s): N39.0 - URINARY TRACT INFECTION, SITE NOT SPECIFIED SNOMED Code(s): 50514904 Plan: 1patient presented to hospital with sepsis and respiratory have fever elevated white count positive UA source is likely urinary tract infection concern for possible pyelonephritis likely from enteric gram-negative pathogen. 2 ultrasound of the kidney and bladder area did show abnormality for which the CT was done suggestive of pyelonephritis no abscess. 3blood and urine has been finalized with an E. coli that is sensitive pathogen 4-patient to continue the Rocephin 2 g daily hopefully transition to oral antibiotics on discharge Time with Patient: Less than 30
[2021-12-08] MEDS: HEPARIN SODIUM,PORCINE/PF 5,000 UNIT/0.5 ML SYRINGE SQ SCH ×4 (00:47→23:26)
[2021-12-08] MEDS: DEXTROSE 5% IN WATER 1,000 ML with SODIUM BICARB (1 MEQ/ML) 150 ML IV SCH ×2 (04:39→10:36)
[2021-12-08 06:59] LABS: Glucose,Whole Blood 89 mg/dL (70-110)
[2021-12-08] MEDS: SYMBICORT 160-4.5 MCG INHALER INHALATION SCH ×2 (07:42→19:39)
[2021-12-08] MEDS: ALBUTEROL NEBULIZED 2.5 MG/3 ML INHALATION SCH ×3 (07:42→19:39)
[2021-12-08] MEDS: FAMOTIDINE 20 MG TAB PO SCH (08:05)
[2021-12-08] MEDS: LORATADINE 10 MG TAB PO SCH (08:05)
[2021-12-08] MEDS: PANTOPRAZOLE 40 MG TABLET PO SCH (08:05)
[2021-12-08] MEDS: METOPROLOL TARTRATE 25 MG TAB PO SCH ×2 (08:05→20:19)
[2021-12-08] MEDS: CLOPIDOGREL 75 MG TAB PO SCH (08:05)
[2021-12-08] MEDS: amLODIPine 10 MG TAB PO SCH (08:05)
[2021-12-08] MEDS: INSULIN ASPART (NovoLOG) 100 UNIT/ML VIAL SQ SCH ×4 (08:06→20:14)
[2021-12-08 10:44] LABS: Anisocytosis Slight; Basophils % (A) 0 %; Eosinophils # (A) 0.2 k/uL (0-0.7); Eosinophils % (A) 2 %; HCT 35.8 % (34.0-46.0); HGB 10.6 gm/dL (11.4-16.0); Hypochromasia Moderate; Lymphocytes # (A) 1.7 k/uL (1.0-4.8); Lymphocytes % (A) 22 %; MCH 23.2 pg (25.0-35.0); MCHC 29.6 g/dL (31.0-37.0); MCV 78.5 fL (80.0-100.0); Mean Platelet Volume 9.6; Microcytosis Slight; Monocytes # (A) 0.4 k/uL (0-1.0); Monocytes % (A) 6 %; Neutrophils # (A) 5.2 k/uL (1.3-7.7); Neutrophils % (A) 68 %; Platelet Count 136 k/uL (150-450); RBC 4.56 m/uL (3.80-5.40); RDW 16.6 % (11.5-15.5); WBC 7.7 k/uL (3.8-10.6)
[2021-12-08 10:58] LABS: African American GFR (CKD) 25 (>60 ml/min/1.73 sqM); Anion Gap 11 mmol/L; Blood Urea Nitrogen 21 mg/dL (7-17); Calcium 8.5 mg/dL (8.4-10.2); Carbon Dioxide 24 mmol/L (22-30); Chloride 108 mmol/L (98-107); Glucose 147 mg/dL (74-99); Non-African American GFR(CKD) 22 (>60 ml/min/1.73 sqM); Potassium 3.2 mmol/L (3.5-5.1); Sodium 143 mmol/L (137-145)
[2021-12-08 11:22] LABS: Glucose,Whole Blood 153 mg/dL (70-110)
--- NOTE | 2021-12-08 13:43 | P.PN ---
Subjective Progress Note Date: 12/08/21 Follow-up for acute kidney injury. Denies nausea vomiting diarrhea. Currently eating lunch. Urine output of 1.1 L in the last 24 hours. Objective - Vital Signs Vital signs: Vital Signs Temp 98.8 F 12/08/21 11:15 Pulse 60 12/08/21 11:38 Resp 18 12/08/21 11:15 BP 155/83 12/08/21 11:15 Pulse Ox 99 12/08/21 11:15 FiO2 Intake & Output 12/07/21 12/08/21 12/08/21 18:59 06:59 18:59 Intake Total 296 825 Balance 296 825 Intake: Intake, IV Titration 825 Amount Dextrose 5% in Water 1, 825 000 ml @ 75 mls/hr IV . [id number] ERASMO with Sodium Bicarb (1 Meq/ml) 150 ml Rx#:[id number] Oral 296 Other: Voiding Method Toilet Toilet Toilet Diaper Diaper Diaper # Voids 3 2 2 # Bowel Movements 1 - Exam No acute distress S1-S2 heard Lungs clear No edema - Labs CBC & Chem 7: 12/08/21 10:04 12/08/21 10:04 Labs: Abnormal Lab Results - Last 24 Hours (Table) 12/07/21 12/07/21 12/08/21 Range/Units 16:59 19:57 10:04 Hgb 10.6 L (11.4-16.0) gm/dL MCV 78.5 L (80.0-100.0) fL MCH 23.2 L (25.0-35.0) pg MCHC 29.6 L (31.0-37.0) g/dL RDW 16.6 H (11.5-15.5) % Plt Count 136 L (150-450) k/uL Potassium (3.5-5.1) mmol/L Chloride (98-107) mmol/L BUN (7-17) mg/dL Creatinine (0.52-1.04) mg/dL Glucose (74-99) mg/dL POC Glucose (mg/dL) 146 H 158 H (70-110) mg/dL 12/08/21 12/08/21 Range/Units 10:04 11:20 Hgb (11.4-16.0) gm/dL MCV (80.0-100.0) fL MCH (25.0-35.0) pg MCHC (31.0-37.0) g/dL RDW (11.5-15.5) % Plt Count (150-450) k/uL Potassium 3.2 L (3.5-5.1) mmol/L Chloride 108 H (98-107) mmol/L BUN 21 H (7-17) mg/dL Creatinine 2.30 H (0.52-1.04) mg/dL Glucose 147 H (74-99) mg/dL POC Glucose (mg/dL) 153 H (70-110) mg/dL Microbiology - Last 24 Hours (Table) 12/06/21 10:03 Blood Culture - Preliminary Blood No Growth after 48 hours 12/04/21 15:08 Urine Culture - Final Urine,Clean Catch Escherichia coli 12/04/21 15:00 Blood Culture Gram Stain - Final Blood Blood Culture - Final Escherichia coli 12/04/21 15:15 Blood Culture Gram Stain - Final Blood Blood Culture - Final Escherichia coli Assessment and Plan Assessment: #1 nonoliguric acute kidney injury secondary to septic ATN. #2 CK D stage III suspect nephrosclerosis with a baseline creatinine of 1.2-1.3 MG per DL. #3 complicated UTI. #4 hypertension with chronic kidney disease #5 renal lesion on the right kidney on ultrasound, computed tomography scan consistent with pyelonephritis Plan: #1 renal function stable and improving. Stop IV fluids. #2 avoid nephrotoxic agents and hypotensive episodes. #3 supportive care
[2021-12-08] MEDS ORDERED: Potassium Replacement Protocol 1 EACH MISC MISCELLANE PRN (14:08)
[2021-12-08] MEDS: POTASSIUM CHLORIDE ER 20 MEQ TAB.ER PO SCH ×2 (14:34→16:18)
--- NOTE | 2021-12-08 16:17 | P.PN ---
Subjective Progress Note Date: 12/08/21 66-year-old pleasant female was brought in because of altered mental status. Patient is usually alert oriented 3. Patient is presently alert oriented 3. Patient is found to have a urinary tract infection with significantly abnormal uterine patient also had fever of 103. Patient blood cultures came back positive for gram-negative bacilli today upon questioning patient did complain for last couple days that she was having burning sensation. Patient was a confused and hallucinating yesterday. Patient also found to have elevated creatinine of 2.2 baseline appears to be around 1.3. Patient is a diabetic. Patient was started on levofloxacin which was later switched to Rocephin. Patient to presently doesn't have any fevers. 12/06/2021 Patient is seen in follow-up continues to have some confusion although appears more alert today. Patient is continued on IV antibiotics in the form of ceftriaxone with infectious disease following closely. Blood culture showing E. coli and will repeat blood cultures to monitor for clearance of bacteremia. Patient's elevated creatinine has worsened and is maintained on gentle IV hydration and will consult nephrology and appreciate input and recommendations. Patient continues with weakness and recommend PT/OT to follow. Case management is also following and working on possible ECF for continued PT/OT therapy for strengthening mobility. Patient is currently afebrile and denies any chest pain or shortness of breath. Patient denies nausea or vomiting and has been tolerating diet. Recommend continue monitoring Accu-Cheks before meals and at bedtime and to continue with sliding scale at this time. An ultrasound of the kidneys urinary bladder has been ordered and pending. 12/07/2021 Patient is evaluated today and appears more awake and alert. Multiple medical consultations following including nephrology and patient has been placed on bicarb drip. IV fluids discontinued. Patient also continued on Ceftraxone with ID following for uti ecoli with bacteremia. Recommend continuing daily blood cultures to monitor for clearance of bacteremia. Patient also continues with weakness and recommend working with PT/OT daily. Case management following as patient will likely need ecf for continued strength and mobility. Patient is afebrile and denies chest pain or shortness of breath. Patient tolerating diet and denies nausea or vomiting. 12/08/2021 Patient is seen today and is continued on IV antibiotics with ID and nephrology following. Patient was maintained on sodium bicarb drip and is being discontinued. Patient had CT abdomen done with some tiny focus of air in the lumen or bladder and will consult urology and appreciate input and recommendations. Most likely consistent with cystitis and complicated UTI. Patient is afebrile and denies chest pain or shortness of breath. Patient encouraged to increase activity as tolerated. PT/OT following. Recommend repeat labs. Patient is urinating well. Review of systems: Constitutional: No reports of fatigue, fever, or chills Cardiovascular: No reports of chest pain or palpitations Respiratory: No reports of shortness of breath or cough GI: No reports of nausea, vomiting, or diarrhea : reports of dysuria and lower pelvic pain, no retention Neurovascular: reports of weakness All medications have been reviewed. Active Medications Acetaminophen (Acetaminophen Tab 325 Mg Tab) 650 mg PO Q6HR PRN PRN Reason: Mild Pain or Fever > 100.5 Last Admin: 12/07/21 08:44 Dose: 650 mg Albuterol Sulfate (Albuterol Nebulized 2.5 Mg/3 Ml) 2.5 mg INHALATION RT-BID [facility] Last Admin: 12/08/21 11:27 Dose: 2.5 mg Amlodipine Besylate (Amlodipine 10 Mg Tab) 10 mg PO DAILY [facility] Last Admin: 12/08/21 08:05 Dose: 10 mg Atorvastatin Calcium (Atorvastatin 40 Mg Tab) 40 mg PO HS [facility] Last Admin: 12/07/21 21:39 Dose: 40 mg Budesonide/Formoterol Fumarate (Symbicort 160-4.5 Mcg Inhaler) 2 puff INHALATION RT-BID [facility] Last Admin: 12/08/21 07:42 Dose: 2 puff Clopidogrel Bisulfate (Clopidogrel 75 Mg Tab) 75 mg PO DAILY [facility] Last Admin: 12/08/21 08:05 Dose: 75 mg Dextrose/Water (Dextrose 50% Syringe 50 Ml) 25 ml IVP PER PROTOCOL PRN; Protocol PRN Reason: Hypoglycemia Dextrose/Water (Dextrose 50% Syringe 50 Ml) 50 ml IVP PER PROTOCOL PRN; Protocol PRN Reason: Hypoglycemia Famotidine (Famotidine 20 Mg Tab) 20 mg PO DAILY [facility] Last Admin: 12/08/21 08:05 Dose: 20 mg Heparin Sodium (Porcine) (Heparin Sodium,Porcine/Pf 5,000 Unit/0.5 Ml Syringe) 5,000 unit SQ Q8HR [facility] Last Admin: 12/08/21 08:05 Dose: 5,000 unit Ceftriaxone Sodium 2 gm/ (Sodium Chloride) 50 mls @ 100 mls/hr IVPB Q24HR [facility]; Protocol Last Admin: 12/08/21 08:04 Dose: 100 mls/hr Insulin Aspart (Insulin Aspart (Novolog) 100 Unit/Ml Vial) 0 unit SQ ACHS [facility]; Protocol Last Admin: 12/08/21 12:59 Dose: 2 unit Loratadine (Loratadine 10 Mg Tab) 10 mg PO DAILY [facility] Last Admin: 12/08/21 08:05 Dose: 10 mg Metoprolol Tartrate (Metoprolol Tartrate 25 Mg Tab) 25 mg PO BID [facility] Last Admin: 12/08/21 08:05 Dose: 25 mg Miscellaneous Information (Potassium Replacement Protocol 1 Each Misc) 1 each MISCELLANE DAILY PRN; Protocol PRN Reason: Per Protocol Naloxone HCl (Naloxone 0.4 Mg/Ml 1 Ml Vial) 0.2 mg IV Q2M PRN PRN Reason: Opioid Reversal Pantoprazole Sodium (Pantoprazole 40 Mg Tablet) 40 mg PO AC-BRKFST [facility] Last Admin: 12/08/21 08:05 Dose: 40 mg Potassium Chloride (Potassium Chloride Er 20 Meq Tab.Er) 20 meq PO Q1HR [facility]; Protocol Stop: 12/08/21 16:01 Topiramate (Topiramate 25 Mg Tab) 50 mg PO HS [facility] Last Admin: 12/07/21 21:39 Dose: 50 mg PHYSICAL EXAMINATION: GENERAL: The patient is alert and oriented x2-3, Well developed, well nourished. HEENT: Pupils are round and equally reacting to light. EOMI. No scleral icterus. No conjunctival pallor. Normocephalic, atraumatic. No pharyngeal erythema. No thyromegaly. CARDIOVASCULAR: S1 and S2 muffled PULMONARY: Diminished breath sounds bilaterally with no wheezing or rhonchi noted ABDOMEN: Soft, mildly tender in the left and right lower quadrant, nondistended, normoactive bowel sounds. No palpable organomegaly. MUSCULOSKELETAL: No joint swelling or deformity. EXTREMITIES: No cyanosis, clubbing, or pedal edema. NEUROLOGICAL: Gross neurological examination did not reveal any focal deficits. Diffuse weakness SKIN: No rashes. Assessment: -Severe sepsis secondary to urinary tract infection/pyelonephritis. -bacteremia with Ecoli most likely secondary to UTI -Acute renal failure probably secondary to sepsis and possibility of acute tubular necrosis -Mild hypervolemic hyponatremia -Mild transaminitis secondary to sepsis -Coronary artery disease -COPD without any acute exacerbation -Type 2 diabetes mellitus -Cerebral vascular accident in the past -Depression -Nicotine use: Counseling was provided -DVT prophylaxis: Subcutaneous heparin -Full code Plan: Recommend continue with IV antibiotics and close monitoring with infectious disease following. Cultures showing E. coli in the blood and will repeat blood cultures daily to monitor for clearance of bacteremia. Most recent culture is negative thus far for 48 hours. Recommend continue with IV ceftriaxone per ID recommendations Nephrology following and ordered ct abd pelvis which showed findings consistent with pyelonephritis and also noted to have some tiny focus of air in the bladder wall or lumen and will consult urology to evaluate. Most likely due to complicated UTI Potassium 3.2 today and will replace per protocol and repeat labs. Recommend continue monitoring Accu-Cheks before meals and at bedtime and continue sliding scale Encouraged increased activity as tolerated DC IV fluids. PT/OT to follow Due to multiple complex medical issues, prognosis is guarded Case management following this patient will likely need ECF on discharge The impression and plan of care has been dictated as a scribe by Milly Montoya, nurse practitioner as directed. MD Adriana I have performed a history and examination and MDM of this patient, discussed the same with the dictator and has been documented as a scribe. Based on total visit time, I have performed more than 50% of the visit. Objective - Vital Signs Vital signs: Vital Signs Temp 98.8 F 12/08/21 11:15 Pulse 60 12/08/21 11:38 Resp 18 12/08/21 11:15 BP 155/83 12/08/21 11:15 Pulse Ox 99 12/08/21 11:15 FiO2 Intake & Output 12/07/21 12/08/21 12/08/21 18:59 06:59 18:59 Intake Total 296 825 Balance 296 825 Intake: Intake, IV Titration 825 Amount Dextrose 5% in Water 1, 825 000 ml @ 75 mls/hr IV . [id number] ERASMO with Sodium Bicarb (1 Meq/ml) 150 ml Rx#:[id number] Oral 296 Other: Voiding Method Toilet Toilet Toilet Diaper Diaper Diaper # Voids 3 2 2 # Bowel Movements 1 - Labs CBC & Chem 7: 12/08/21 10:04 12/08/21 10:04 Labs: Abnormal Lab Results - Last 24 Hours (Table) 12/07/21 12/07/21 12/08/21 Range/Units 16:59 19:57 10:04 Hgb 10.6 L (11.4-16.0) gm/dL MCV 78.5 L (80.0-100.0) fL MCH 23.2 L (25.0-35.0) pg MCHC 29.6 L (31.0-37.0) g/dL RDW 16.6 H (11.5-15.5) % Plt Count 136 L (150-450) k/uL Potassium (3.5-5.1) mmol/L Chloride (98-107) mmol/L BUN (7-17) mg/dL Creatinine (0.52-1.04) mg/dL Glucose (74-99) mg/dL POC Glucose (mg/dL) 146 H 158 H (70-110) mg/dL 12/08/21 12/08/21 Range/Units 10:04 11:20 Hgb (11.4-16.0) gm/dL MCV (80.0-100.0) fL MCH (25.0-35.0) pg MCHC (31.0-37.0) g/dL RDW (11.5-15.5) % Plt Count (150-450) k/uL Potassium 3.2 L (3.5-5.1) mmol/L Chloride 108 H (98-107) mmol/L BUN 21 H (7-17) mg/dL Creatinine 2.30 H (0.52-1.04) mg/dL Glucose 147 H (74-99) mg/dL POC Glucose (mg/dL) 153 H (70-110) mg/dL Microbiology - Last 24 Hours (Table) 12/06/21 10:03 Blood Culture - Preliminary Blood No Growth after 48 hours 12/04/21 15:08 Urine Culture - Final Urine,Clean Catch Escherichia coli 12/04/21 15:00 Blood Culture Gram Stain - Final Blood Blood Culture - Final Escherichia coli 12/04/21 15:15 Blood Culture Gram Stain - Final Blood Blood Culture - Final Escherichia coli
[2021-12-08 17:19] LABS: Glucose,Whole Blood 108 mg/dL (70-110)
[2021-12-08] MEDS ORDERED: POTASSIUM CHLORIDE ER 20 MEQ TAB.ER PO SCH (19:00)
[2021-12-08] MEDS: ACETAMINOPHEN TAB 325 MG TAB PO PRN (19:28)
[2021-12-08 20:08] LABS: Glucose,Whole Blood 107 mg/dL (70-110)
[2021-12-08] MEDS: TOPIRAMATE 25 MG TAB PO SCH (20:19)
[2021-12-08] MEDS: ATORVASTATIN 40 MG TAB PO SCH (20:19)
--- NOTE | 2021-12-08 22:08 | P.PN ---
Subjective Progress Note Date: 12/08/21 Principal diagnosis: UTI and bacteremia patient is a 66-year old female with multiple comorbidities presenting to the hospital with mental status changes has been diagnosed with the sepsis secondary to the right-sided pyelonephritis patient also have a gram- negative bacteremia. On today's evaluation that is 12/08/2021, the patient remains to be afebrile, the patient is breathing comfortably on room air, the patient denies any chest pain or shortness of breath or cough , the patient denies abdominal pain no diarrhea Objective - Vital Signs Vital signs: Vital Signs Temp 98.8 F 12/08/21 11:15 Pulse 60 12/08/21 11:38 Resp 18 12/08/21 11:15 BP 155/83 12/08/21 11:15 Pulse Ox 99 12/08/21 11:15 FiO2 Intake & Output 12/07/21 12/08/21 12/08/21 18:59 06:59 18:59 Intake Total 296 825 Balance 296 825 Intake: Intake, IV Titration 825 Amount Dextrose 5% in Water 1, 825 000 ml @ 75 mls/hr IV . [id number] ERASMO with Sodium Bicarb (1 Meq/ml) 150 ml Rx#:[id number] Oral 296 Other: Voiding Method Toilet Toilet Toilet Diaper Diaper Diaper # Voids 3 2 2 # Bowel Movements 1 - Exam GENERAL DESCRIPTION: Middle-age female lying in bed in no distress RESPIRATORY SYSTEM: Unlabored breathing , decreased breath sounds at bases HEART: S1 S2 regular rate and rhythm , ABDOMEN: Soft , no tenderness EXTREMITIES: No edema feet - Labs CBC & Chem 7: 12/08/21 10:04 12/08/21 17:34 Labs: Abnormal Lab Results - Last 24 Hours (Table) 12/07/21 12/07/21 12/08/21 Range/Units 16:59 19:57 10:04 Hgb 10.6 L (11.4-16.0) gm/dL MCV 78.5 L (80.0-100.0) fL MCH 23.2 L (25.0-35.0) pg MCHC 29.6 L (31.0-37.0) g/dL RDW 16.6 H (11.5-15.5) % Plt Count 136 L (150-450) k/uL Potassium (3.5-5.1) mmol/L Chloride (98-107) mmol/L BUN (7-17) mg/dL Creatinine (0.52-1.04) mg/dL Glucose (74-99) mg/dL POC Glucose (mg/dL) 146 H 158 H (70-110) mg/dL 12/08/21 12/08/21 Range/Units 10:04 11:20 Hgb (11.4-16.0) gm/dL MCV (80.0-100.0) fL MCH (25.0-35.0) pg MCHC (31.0-37.0) g/dL RDW (11.5-15.5) % Plt Count (150-450) k/uL Potassium 3.2 L (3.5-5.1) mmol/L Chloride 108 H (98-107) mmol/L BUN 21 H (7-17) mg/dL Creatinine 2.30 H (0.52-1.04) mg/dL Glucose 147 H (74-99) mg/dL POC Glucose (mg/dL) 153 H (70-110) mg/dL Microbiology - Last 24 Hours (Table) 12/06/21 10:03 Blood Culture - Preliminary Blood No Growth after 48 hours 12/04/21 15:08 Urine Culture - Final Urine,Clean Catch Escherichia coli 12/04/21 15:00 Blood Culture Gram Stain - Final Blood Blood Culture - Final Escherichia coli 12/04/21 15:15 Blood Culture Gram Stain - Final Blood Blood Culture - Final Escherichia coli Assessment and Plan (1) Sepsis Current Visit: Yes Status: Acute Code(s): A41.9 - SEPSIS, UNSPECIFIED ORGANISM SNOMED Code(s): 30202352 (2) Urinary tract infection Current Visit: Yes Status: Acute Code(s): N39.0 - URINARY TRACT INFECTION, SITE NOT SPECIFIED SNOMED Code(s): 12581351 Plan: 1patient presented to hospital with sepsis and respiratory have fever elevated white count positive UA source is likely urinary tract infection concern for possible pyelonephritis likely from enteric gram-negative pathogen. 2 ultrasound of the kidney and bladder area did show abnormality for which the CT was done suggestive of pyelonephritis no abscess. 3blood and urine has been finalized with an E. coli that is sensitive pathogen 4-patient is slowly clinical improvement and will continue Rocephin 2 g daily with a plan to finish therapy With either oral Cipro or Ceftin depending upon drug interactions Time with Patient: Less than 30
[2021-12-09 06:56] LABS: Glucose,Whole Blood 106 mg/dL (70-110)
[2021-12-09] MEDS: ALBUTEROL NEBULIZED 2.5 MG/3 ML INHALATION SCH ×2 (07:50→18:54)
[2021-12-09] MEDS: SYMBICORT 160-4.5 MCG INHALER INHALATION SCH ×2 (07:50→18:55)
[2021-12-09] MEDS: PANTOPRAZOLE 40 MG TABLET PO SCH (08:19)
[2021-12-09] MEDS: METOPROLOL TARTRATE 25 MG TAB PO SCH ×2 (08:19→21:01)
[2021-12-09] MEDS: CLOPIDOGREL 75 MG TAB PO SCH (08:19)
[2021-12-09] MEDS: HEPARIN SODIUM,PORCINE/PF 5,000 UNIT/0.5 ML SYRINGE SQ SCH ×2 (08:20→17:33)
[2021-12-09] MEDS: LORATADINE 10 MG TAB PO SCH (08:20)
[2021-12-09] MEDS: FAMOTIDINE 20 MG TAB PO SCH (08:20)
[2021-12-09] MEDS: amLODIPine 10 MG TAB PO SCH (08:20)
[2021-12-09] MEDS: INSULIN ASPART (NovoLOG) 100 UNIT/ML VIAL SQ SCH ×4 (08:21→21:01)
[2021-12-09 08:54] LABS: Blood Urea Nitrogen 21 mg/dL (7-17); Calcium 8.5 mg/dL (8.4-10.2); Chloride 114 mmol/L (98-107); Glucose 100 mg/dL (74-99); Potassium 4.3 mmol/L (3.5-5.1); Sodium 145 mmol/L (137-145)
[2021-12-09 08:55] LABS: African American GFR (CKD) 27 (>60 ml/min/1.73 sqM); Anion Gap 10 mmol/L; Carbon Dioxide 21 mmol/L (22-30); Non-African American GFR(CKD) 24 (>60 ml/min/1.73 sqM)
[2021-12-09 11:24] LABS: Glucose,Whole Blood 126 mg/dL (70-110)
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
--- NOTE | 2021-12-09 12:53 | P.PN ---
Subjective Progress Note Date: 12/09/21 Follow-up for acute kidney injury. Denies nausea vomiting diarrhea. Objective - Vital Signs Vital signs: Vital Signs Temp 98.5 F 12/09/21 11:25 Pulse 53 L 12/09/21 11:25 Resp 18 12/09/21 11:25 BP 125/79 12/09/21 11:25 Pulse Ox 98 12/09/21 11:25 FiO2 Intake & Output 12/08/21 12/09/21 12/09/21 18:59 06:59 18:59 Output Total 1 Balance -1 Output: Urine/Stool Mix 1 Other: Voiding Method Toilet Toilet Toilet Diaper Diaper Diaper # Voids 1 2 1 - Exam No acute distress S1-S2 heard Lungs clear No edema - Labs CBC & Chem 7: 12/08/21 10:04 12/09/21 07:50 Labs: Abnormal Lab Results - Last 24 Hours (Table) 12/09/21 12/09/21 Range/Units 07:50 11:23 Chloride 114 H (98-107) mmol/L Carbon Dioxide 21 L (22-30) mmol/L BUN 21 H (7-17) mg/dL Creatinine 2.16 H (0.52-1.04) mg/dL Glucose 100 H (74-99) mg/dL POC Glucose (mg/dL) 126 H (70-110) mg/dL Microbiology - Last 24 Hours (Table) 12/08/21 10:04 Blood Culture - Preliminary Blood No Growth after 24 hours 12/06/21 10:03 Blood Culture - Preliminary Blood No Growth after 72 hours Assessment and Plan Assessment: #1 nonoliguric acute kidney injury secondary to septic ATN. #2 CK D stage III suspect nephrosclerosis with a baseline creatinine of 1.2-1.3 MG per DL. #3 complicated UTI. #4 hypertension with chronic kidney disease #5 renal lesion on the right kidney on ultrasound, computed tomography scan consistent with pyelonephritis Plan: #1 renal function stable and improving. #2 avoid nephrotoxic agents and hypotensive episodes. #3 supportive care
[2021-12-09 17:11] LABS: Glucose,Whole Blood 110 mg/dL (70-110)
[2021-12-09 20:16] LABS: Glucose,Whole Blood 122 mg/dL (70-110)
[2021-12-09] MEDS: TOPIRAMATE 25 MG TAB PO SCH (21:01)
[2021-12-09] MEDS: ATORVASTATIN 40 MG TAB PO SCH (21:01)
[2021-12-09] MEDS: ACETAMINOPHEN TAB 325 MG TAB PO PRN (21:07)
[2021-12-10] MEDS: HEPARIN SODIUM,PORCINE/PF 5,000 UNIT/0.5 ML SYRINGE SQ SCH ×2 (01:23→08:00)
--- NOTE | 2021-12-10 02:43 | P.PN ---
Subjective Progress Note Date: 12/09/21 66-year-old pleasant female was brought in because of altered mental status. Patient is usually alert oriented 3. Patient is presently alert oriented 3. Patient is found to have a urinary tract infection with significantly abnormal uterine patient also had fever of 103. Patient blood cultures came back positive for gram-negative bacilli today upon questioning patient did complain for last couple days that she was having burning sensation. Patient was a confused and hallucinating yesterday. Patient also found to have elevated creatinine of 2.2 baseline appears to be around 1.3. Patient is a diabetic. Patient was started on levofloxacin which was later switched to Rocephin. Patient to presently doesn't have any fevers. 12/06/2021 Patient is seen in follow-up continues to have some confusion although appears more alert today. Patient is continued on IV antibiotics in the form of ceftriaxone with infectious disease following closely. Blood culture showing E. coli and will repeat blood cultures to monitor for clearance of bacteremia. Patient's elevated creatinine has worsened and is maintained on gentle IV hydration and will consult nephrology and appreciate input and recommendations. Patient continues with weakness and recommend PT/OT to follow. Case management is also following and working on possible ECF for continued PT/OT therapy for strengthening mobility. Patient is currently afebrile and denies any chest pain or shortness of breath. Patient denies nausea or vomiting and has been tolerating diet. Recommend continue monitoring Accu-Cheks before meals and at bedtime and to continue with sliding scale at this time. An ultrasound of the kidneys urinary bladder has been ordered and pending. 12/07/2021 Patient is evaluated today and appears more awake and alert. Multiple medical consultations following including nephrology and patient has been placed on bicarb drip. IV fluids discontinued. Patient also continued on Ceftraxone with ID following for uti ecoli with bacteremia. Recommend continuing daily blood cultures to monitor for clearance of bacteremia. Patient also continues with weakness and recommend working with PT/OT daily. Case management following as patient will likely need ecf for continued strength and mobility. Patient is afebrile and denies chest pain or shortness of breath. Patient tolerating diet and denies nausea or vomiting. 12/08/2021 Patient is seen today and is continued on IV antibiotics with ID and nephrology following. Patient was maintained on sodium bicarb drip and is being discontinued. Patient had CT abdomen done with some tiny focus of air in the lumen or bladder and will consult urology and appreciate input and recommendations. Most likely consistent with cystitis and complicated UTI. Patient is afebrile and denies chest pain or shortness of breath. Patient encouraged to increase activity as tolerated. PT/OT following. Recommend repeat labs. Patient is urinating well. 12/09/2021 Patient is evaluated today and continued on IV abx with ID, nephrology, and urology following. Urology reviewed the CT and findings most likely due to complicated UTI with ecoli and recommending to continue with abx and follow up outpatient if symptoms persist. Patient is afebrile and denies chest pain or shortness of breath. Patient is voiding and kidney functions are stable. Recommend repeat am labs. Will discuss with ID about discharge planning and most recent blood cultures have remained negative. PT/OT to evaluate the patient in the am and discuss with case management as ECF is being planned. Review of systems: Constitutional: No reports of fatigue, fever, or chills Cardiovascular: No reports of chest pain or palpitations Respiratory: No reports of shortness of breath or cough GI: No reports of nausea, vomiting, or diarrhea : reports of dysuria and lower pelvic pain, no retention Neurovascular: reports of weakness All medications have been reviewed. Active Medications Acetaminophen (Acetaminophen Tab 325 Mg Tab) 650 mg PO Q6HR PRN PRN Reason: Mild Pain or Fever > 100.5 Last Admin: 12/09/21 21:07 Dose: 650 mg Albuterol Sulfate (Albuterol Nebulized 2.5 Mg/3 Ml) 2.5 mg INHALATION RT-BID [facility] Last Admin: 12/09/21 18:54 Dose: 2.5 mg Amlodipine Besylate (Amlodipine 10 Mg Tab) 10 mg PO DAILY [facility] Last Admin: 12/09/21 08:20 Dose: 10 mg Atorvastatin Calcium (Atorvastatin 40 Mg Tab) 40 mg PO HS [facility] Last Admin: 12/09/21 21:01 Dose: 40 mg Budesonide/Formoterol Fumarate (Symbicort 160-4.5 Mcg Inhaler) 2 puff INHALATION RT-BID [facility] Last Admin: 12/09/21 18:55 Dose: 2 puff Clopidogrel Bisulfate (Clopidogrel 75 Mg Tab) 75 mg PO DAILY [facility] Last Admin: 12/09/21 08:19 Dose: 75 mg Dextrose/Water (Dextrose 50% Syringe 50 Ml) 25 ml IVP PER PROTOCOL PRN; Protocol PRN Reason: Hypoglycemia Dextrose/Water (Dextrose 50% Syringe 50 Ml) 50 ml IVP PER PROTOCOL PRN; Protocol PRN Reason: Hypoglycemia Famotidine (Famotidine 20 Mg Tab) 20 mg PO DAILY [facility] Last Admin: 12/09/21 08:20 Dose: 20 mg Heparin Sodium (Porcine) (Heparin Sodium,Porcine/Pf 5,000 Unit/0.5 Ml Syringe) 5,000 unit SQ Q8HR [facility] Last Admin: 12/10/21 01:23 Dose: 5,000 unit Ceftriaxone Sodium 2 gm/ (Sodium Chloride) 50 mls @ 100 mls/hr IVPB Q24HR [facility]; Protocol Last Admin: 12/09/21 08:34 Dose: 100 mls/hr Insulin Aspart (Insulin Aspart (Novolog) 100 Unit/Ml Vial) 0 unit SQ ACHS [facility]; Protocol Last Admin: 12/09/21 21:01 Dose: Not Given Loratadine (Loratadine 10 Mg Tab) 10 mg PO DAILY [facility] Last Admin: 12/09/21 08:20 Dose: 10 mg Metoprolol Tartrate (Metoprolol Tartrate 25 Mg Tab) 25 mg PO BID [facility] Last Admin: 12/09/21 21:01 Dose: 25 mg Miscellaneous Information (Potassium Replacement Protocol 1 Each Misc) 1 each MISCELLANE DAILY PRN; Protocol PRN Reason: Per Protocol Naloxone HCl (Naloxone 0.4 Mg/Ml 1 Ml Vial) 0.2 mg IV Q2M PRN PRN Reason: Opioid Reversal Pantoprazole Sodium (Pantoprazole 40 Mg Tablet) 40 mg PO AC-BRKFST [facility] Last Admin: 12/09/21 08:19 Dose: 40 mg Topiramate (Topiramate 25 Mg Tab) 50 mg PO HS [facility] Last Admin: 12/09/21 21:01 Dose: 50 mg PHYSICAL EXAMINATION: GENERAL: The patient is alert and oriented x2-3, Well developed, well nourished. HEENT: Pupils are round and equally reacting to light. EOMI. No scleral icterus. No conjunctival pallor. Normocephalic, atraumatic. No pharyngeal erythema. No thyromegaly. CARDIOVASCULAR: S1 and S2 muffled PULMONARY: Diminished breath sounds bilaterally with no wheezing or rhonchi noted ABDOMEN: Soft, mildly tender in the left and right lower quadrant, nondistended, normoactive bowel sounds. No palpable organomegaly. MUSCULOSKELETAL: No joint swelling or deformity. EXTREMITIES: No cyanosis, clubbing, or pedal edema. NEUROLOGICAL: Gross neurological examination did not reveal any focal deficits. Diffuse weakness SKIN: No rashes. Assessment: -Severe sepsis secondary to urinary tract infection/pyelonephritis. -bacteremia with Ecoli most likely secondary to UTI -Acute renal failure probably secondary to sepsis and possibility of acute tubular necrosis -Tiny focus of air in the bladder, suggestive of cystitis/pyelnephritis -Mild hypervolemic hyponatremia -Mild transaminitis secondary to sepsis -Coronary artery disease -COPD without any acute exacerbation -Type 2 diabetes mellitus -Cerebral vascular accident in the past -Depression -Nicotine use: Counseling was provided -DVT prophylaxis: Subcutaneous heparin -Full code Plan: Recommend continue with IV antibiotics and close monitoring with infectious disease following. Cultures showing E. coli in the blood and repeat blood cultures to monitor for clearance of bacteremia. Most recent cultures have been negative Recommend continue with IV ceftriaxone per ID recommendations Nephrology following and recommending repeat am labs and monitoring of kidney functions Recommend to replace electrolytes per protocol and repeat labs. Recommend continue monitoring Accu-Cheks before meals and at bedtime and continue sliding scale Urology has evaluated the patient recommending to continue to treat ecoli UTI. Encouraged increased activity as tolerated PT/OT to evaluate patient in the am. Due to multiple complex medical issues, prognosis is guarded Case management following this patient will likely need ECF on discharge, will discuss with ID about abx on discharge The impression and plan of care has been dictated as a scribe by Milly Montoya, nurse practitioner as directed. MD Adriana I have performed a history and examination and MDM of this patient, discussed the same with the dictator and has been documented as a scribe. Based on total visit time, I have performed more than 50% of the visit. Objective - Vital Signs Vital signs: Vital Signs Temp 98.5 F 12/09/21 04:57 Pulse 57 L 12/09/21 04:57 Resp 16 12/09/21 04:57 BP 155/64 12/09/21 04:57 Pulse Ox 99 12/09/21 04:57 FiO2 Intake & Output 12/08/21 12/08/21 12/09/21 06:59 18:59 06:59 Intake Total 825 Balance 825 Intake: Intake, IV Titration 825 Amount Dextrose 5% in Water 1, 825 000 ml @ 75 mls/hr IV . [id number] with Sodium Bicarb (1 Meq/ml) 150 ml Rx#:[id number] Other: Voiding Method Toilet Toilet Toilet Diaper Diaper Diaper # Voids 2 1 2 - Labs CBC & Chem 7: 12/08/21 10:04 12/09/21 07:50 Labs: Abnormal Lab Results - Last 24 Hours (Table) 12/08/21 12/08/21 12/08/21 Range/Units 10:04 10:04 11:20 Hgb 10.6 L (11.4-16.0) gm/dL MCV 78.5 L (80.0-100.0) fL MCH 23.2 L (25.0-35.0) pg MCHC 29.6 L (31.0-37.0) g/dL RDW 16.6 H (11.5-15.5) % Plt Count 136 L (150-450) k/uL Potassium 3.2 L (3.5-5.1) mmol/L Chloride 108 H (98-107) mmol/L BUN 21 H (7-17) mg/dL Creatinine 2.30 H (0.52-1.04) mg/dL Glucose 147 H (74-99) mg/dL POC Glucose (mg/dL) 153 H (70-110) mg/dL Microbiology - Last 24 Hours (Table) 12/06/21 10:03 Blood Culture - Preliminary Blood No Growth after 48 hours
[2021-12-10 05:44] LABS: Anisocytosis Slight; Basophils % (A) 0 %; Eosinophils # (A) 0.2 k/uL (0-0.7); Eosinophils % (A) 2 %; HCT 35.1 % (34.0-46.0); HGB 10.4 gm/dL (11.4-16.0); Hypochromasia Marked; Lymphocytes # (A) 3.2 k/uL (1.0-4.8); Lymphocytes % (A) 34 %; MCH 23.7 pg (25.0-35.0); MCHC 29.8 g/dL (31.0-37.0); MCV 79.5 fL (80.0-100.0); Mean Platelet Volume 8.6; Microcytosis Slight; Monocytes # (A) 0.5 k/uL (0-1.0); Monocytes % (A) 6 %; Neutrophils # (A) 5.4 k/uL (1.3-7.7); Neutrophils % (A) 56 %; Platelet Count 169 k/uL (150-450); RBC 4.41 m/uL (3.80-5.40); RDW 16.7 % (11.5-15.5); WBC 9.5 k/uL (3.8-10.6)
[2021-12-10 05:54] LABS: African American GFR (CKD) 24 (>60 ml/min/1.73 sqM); Anion Gap 9 mmol/L; Blood Urea Nitrogen 24 mg/dL (7-17); Calcium 8.7 mg/dL (8.4-10.2); Carbon Dioxide 21 mmol/L (22-30); Chloride 112 mmol/L (98-107); Glucose 91 mg/dL (74-99); Non-African American GFR(CKD) 21 (>60 ml/min/1.73 sqM); Potassium 4.6 mmol/L (3.5-5.1); Sodium 142 mmol/L (137-145)
[2021-12-10 07:11] LABS: Glucose,Whole Blood 97 mg/dL (70-110)
[2021-12-10] MEDS: INSULIN ASPART (NovoLOG) 100 UNIT/ML VIAL SQ SCH ×2 (07:30→11:59)
[2021-12-10] MEDS: FAMOTIDINE 20 MG TAB PO SCH (08:00)
[2021-12-10] MEDS: PANTOPRAZOLE 40 MG TABLET PO SCH (08:00)
[2021-12-10] MEDS: LORATADINE 10 MG TAB PO SCH (08:00)
[2021-12-10] MEDS: CLOPIDOGREL 75 MG TAB PO SCH (08:00)
[2021-12-10] MEDS: amLODIPine 10 MG TAB PO SCH (08:00)
[2021-12-10] MEDS: METOPROLOL TARTRATE 25 MG TAB PO SCH (08:00)
--- NOTE | 2021-12-10 09:03 | P.PN ---
Subjective Patient is seen in follow-up for acute kidney injury on chronic kidney disease. Renal function fairly stable last 3 days. Has been voiding. Oral intake is good. No vomiting or diarrhea. Blood pressure stable. Vital signs are stable. General: Awake. No acute distress. HEENT: Head exam is unremarkable. LUNGS: Breath sounds decreased. HEART: Rate and Rhythm are regular. ABDOMEN: Soft, obese. EXTREMITITES: No edema. Objective - Vital Signs Vital signs: Vital Signs Temp 98.2 F 12/10/21 04:32 Pulse 52 L 12/10/21 04:32 Resp 14 12/10/21 04:32 BP 122/69 12/10/21 04:32 Pulse Ox 95 12/10/21 04:32 FiO2 Intake & Output 12/09/21 12/10/21 12/10/21 18:59 06:59 18:59 Output Total 1 Balance -1 Output: Urine/Stool Mix 1 Other: Voiding Method Toilet Toilet Toilet Diaper Diaper Diaper # Voids 1 4 - Labs CBC & Chem 7: 12/10/21 05:18 12/10/21 05:18 Labs: Abnormal Lab Results - Last 24 Hours (Table) 12/09/21 12/09/21 12/10/21 Range/Units 11:23 19:56 05:18 Hgb 10.4 L (11.4-16.0) gm/dL MCV 79.5 L (80.0-100.0) fL MCH 23.7 L (25.0-35.0) pg MCHC 29.8 L (31.0-37.0) g/dL RDW 16.7 H (11.5-15.5) % Chloride (98-107) mmol/L Carbon Dioxide (22-30) mmol/L BUN (7-17) mg/dL Creatinine (0.52-1.04) mg/dL POC Glucose (mg/dL) 126 H 122 H (70-110) mg/dL 12/10/21 Range/Units 05:18 Hgb (11.4-16.0) gm/dL MCV (80.0-100.0) fL MCH (25.0-35.0) pg MCHC (31.0-37.0) g/dL RDW (11.5-15.5) % Chloride 112 H (98-107) mmol/L Carbon Dioxide 21 L (22-30) mmol/L BUN 24 H (7-17) mg/dL Creatinine 2.37 H (0.52-1.04) mg/dL POC Glucose (mg/dL) (70-110) mg/dL Microbiology - Last 24 Hours (Table) 12/08/21 10:04 Blood Culture - Preliminary Blood No Growth after 24 hours 12/06/21 10:03 Blood Culture - Preliminary Blood No Growth after 72 hours Assessment and Plan Plan: Assessment: 1. Acute kidney injury secondary to septic ATN. Creatinine fairly stable at 2.37 today. Nonoliguric. Computed tomography scan showed atrophic left kidney. 2. Chronic kidney disease stage IIIa with baseline creatinine near 1.3 from April 2020. This concern of progression of underlying CKD. Etiology is diabetic kidney disease. 3. E. coli UTI and bacteremia on antibiotics. 4. Hypertension with chronic kidney disease. Stable. 5. Diabetes mellitus. Plan: Encourage oral intake. Avoid nephrotoxins. Continue to monitor renal function and urine output. Follow-up outpatient in 1 week.
[2021-12-10] MEDS: ALBUTEROL NEBULIZED 2.5 MG/3 ML INHALATION SCH (09:05)
[2021-12-10] MEDS: SYMBICORT 160-4.5 MCG INHALER INHALATION SCH (09:05)
[2021-12-10 11:19] LABS: Glucose,Whole Blood 98 mg/dL (70-110)
[2021-12-10 12:02] VITALS: BP 148/65; PULSE 51; RESP 18; TEMP 98.5
--- NOTE | 2021-12-10 14:33 | P.DS ---
Providers Date of admission: 12/04/21 16:40 Expected date of discharge: 12/10/21 Attending physician: Ant Rodriguez Consults: 12/05/21 06:34 Consult Physician Routine Consulting Provider: Marga Blake Consult Reason/Comments: Bacteremia Do you want consulting provider notified?: Yes 12/06/21 12:55 Consult Physician Urgent Consulting Provider: Maulik Pearce Consult Reason/Comments: perry, uti, bacteremia Do you want consulting provider notified?: Yes 12/08/21 15:11 Consult Physician Routine Consulting Provider: Christopher Beard Consult Reason/Comments: tiny focus of air noted in the bladder on CT, pyelonephritis, compl UTI Do you want consulting provider notified?: Yes Primary care physician: Scot Neal Hospital Course: Final diagnosis -Severe sepsis secondary to urinary tract infection/pyelonephritis. -bacteremia with Ecoli most likely secondary to UTI -Acute renal failure probably secondary to sepsis and possibility of acute tubular necrosis -Tiny focus of air in the bladder, suggestive of cystitis/pyelnephritis -Mild hypervolemic hyponatremia -Mild transaminitis secondary to sepsis -Coronary artery disease -COPD without any acute exacerbation -Type 2 diabetes mellitus -Cerebral vascular accident in the past -Depression -Nicotine use: Counseling was provided -DVT prophylaxis -Full code Discharge disposition Patient is being discharged in a stable condition with guarded prognosis to [facility] for continued PT/OT therapy. Patient to follow-up with Dr. Emery at [facility]. Patient will follow-up with Dr. Neal in the outpatient setting upon discharge from [facility]. Patient is to also follow-up with nephrology in the next 1 week. Patient will continue on oral Cipro twice daily for the next 10 days to complete the course. Recommend repeat labs of CBC and BMP in the next 2-3 days. Total time taken is greater than 35 minutes. Hospital course This is a 66-year-old female who was recently admitted with altered mental status, weakness and found to have a UTI with E. coli and also bacteremia and was being closely monitored. Patient also with some kidney injury and followed by nephrology recommending close outpatient follow-up and repeat labs of CBC and BMP in the next 2-3 days. She normally takes Imdur and Lasix and this is been on hold and recommend to continue holding until follow-up with nephrology. Patient also normally takes Lantus subcu twice a day although has been having lower blood sugars not requiring any insulin and recommend to continue with Accu-Cheks before meals and at bedtime and may resume her scheduled dosing if blood sugars continue to be elevated. Patient continues with weakness and has been evaluated by physical therapy recommending ECF and patient will be going to [facility] today. Recommend continue with subcutaneous heparin twice a day until more mobile. Currently no reports of chest pain, shortness of breath, or palpitations. Patient is afebrile. No reports of nausea or vomiting and patient is tolerating diet. Patient will be going to [facility] today. Guarded prognosis. Physical exam: Gen: This is a 66-year-old female awake, alert and oriented 3, well-developed, well-nourished, obese HEENT: Head is atraumatic, normocephalic. Pupils equal, round. Sclerae is anicteric. NECK: Supple. No JVD. No lymphadenopathy. No thyromegaly. LUNGS: Diminished breath sounds bilaterally with no wheezing or rhonchi noted No intercostal retractions. HEART: S1, S2 are muffled ABDOMEN: Soft. Obese. Bowel sounds are present. No masses. No tenderness. EXTREMITIES: No pedal edema. No calf tenderness. NEUROLOGICAL: Patient is awake, alert and oriented x3. Cranial nerves 2 through 12 are grossly intact. Diffusely weak Please refer to medication reconciliation sheet for a list of medications. The impression and plan of care has been dictated by Milly Montoya, Nurse Practitioner as directed. Dr. Michael MD I have performed a history and examination and MDM of this patient, discussed the same with the dictator, and agree with the dictator's assessment and plan as written ,documented as a scribe. Based on total visit time, I have performed more than 50% of the visit. Patient Condition at Discharge: Stable Plan - Discharge Summary Discharge Rx Participant: No New Discharge Prescriptions: New Famotidine [Pepcid] 20 mg PO DAILY tab Heparin Sodium,Porcine [Heparin Sodium] 5,000 unit SQ Q12HR 30 Days #60 each Ciprofloxacin HCl [Cipro] 500 mg PO BID 10 Days #20 tab Acetaminophen Tab [Tylenol] 650 mg PO Q6HR PRN tab PRN Reason: Mild Pain Or Fever > 100.5 Continue Sertraline [Zoloft] 200 mg PO DAILY Cetirizine HCl 10 mg PO DAILY Nitroglycerin Sl Tabs [Nitrostat] 0.4 mg SUBLINGUAL Q5M PRN #25 tab PRN Reason: Chest Pain Clopidogrel [Plavix] 75 mg PO DAILY Albuterol Inhaler [Ventolin Hfa Inhaler] 1 puff INHALATION RT-BID Pantoprazole [Protonix] 40 mg PO DAILY Atorvastatin [Lipitor] 40 mg PO HS Budesonide-Formot 160-4.5 Mcg [Symbicort 160-4.5 Mcg Inhaler] 2 puff INHALATION RT-BID puff Metoprolol Tartrate [Lopressor] 25 mg PO BID amLODIPine [Norvasc] 10 mg PO DAILY Topiramate [Topamax] 50 mg PO HS Mirabegron [Myrbetriq] 50 mg PO DAILY Ammonium Lactate Lotion [Lac-Hydrin 12% Lotion] 1 applic TOPICAL BID PRN PRN Reason: Skin Irritation Discontinued Isosorbide Mononitrate [Isosorbide Mononitrate ER] 30 mg PO DAILY Furosemide [Lasix] 40 mg PO DAILY tab Insulin Glargine [Lantus Vial] See Protocol SQ BID Potassium Chloride ER [K-Dur 20] 20 meq PO DAILY Discharge Medication List Cetirizine HCl 10 mg PO DAILY 03/18/19 [History] Sertraline [Zoloft] 200 mg PO DAILY 03/18/19 [History] Nitroglycerin Sl Tabs [Nitrostat] 0.4 mg SUBLINGUAL Q5M PRN #25 tab 03/23/19 [Rx] Clopidogrel [Plavix] 75 mg PO DAILY 08/27/19 [History] Albuterol Inhaler [Ventolin Hfa Inhaler] 1 puff INHALATION RT-BID 04/10/20 [History] Atorvastatin [Lipitor] 40 mg PO HS 04/26/20 [History] Pantoprazole [Protonix] 40 mg PO DAILY 04/26/20 [History] Budesonide-Formot 160-4.5 Mcg [Symbicort 160-4.5 Mcg Inhaler] 2 puff INHALATION RT-BID puff 05/09/20 [Rx] Ammonium Lactate Lotion [Lac-Hydrin 12% Lotion] 1 applic TOPICAL BID PRN 12/04/21 [History] Metoprolol Tartrate [Lopressor] 25 mg PO BID 12/04/21 [History] Mirabegron [Myrbetriq] 50 mg PO DAILY 12/04/21 [History] Topiramate [Topamax] 50 mg PO HS 12/04/21 [History] amLODIPine [Norvasc] 10 mg PO DAILY 12/04/21 [History] Acetaminophen Tab [Tylenol] 650 mg PO Q6HR PRN tab 12/10/21 [Rx] Ciprofloxacin HCl [Cipro] 500 mg PO BID 10 Days #20 tab 12/10/21 [Rx] Famotidine [Pepcid] 20 mg PO DAILY tab 12/10/21 [Rx] Heparin Sodium,Porcine [Heparin Sodium] 5,000 unit SQ Q12HR 30 Days #60 each 12/10/21 [Rx] Follow up Appointment(s)/Referral(s): Scot Neal DO [Primary Care Provider] - 1 Week Maulik Pearce DO [STAFF PHYSICIAN] - 1 Week Ambulatory/Diagnostic Orders: Complete Blood Count w/diff [LAB.AMB] Time Frame: 3 Days, Location: None Selected Activity/Diet/Wound Care/Special Instructions: Patient is going to [place] Activity as tolerated Continue with antibiotics for 10 full days until complete Continue holding diuretics until follow-up with nephrology in one week Follow-up neurology outpatient Follow-up primary care provider on discharge Recommend repeat labs of CBC and BMP in 2-3 days Recommend monitor Accu-Cheks before meals and at bedtime and may use sliding scale as needed Patient was taking long-acting insulin twice daily although has been having low blood sugars Recommend consistent carbohydrate diet Discharge/Stand Alone Forms: Who Do I Call?, Community Resources, Help In The Home, Personal [employer] Discharge Disposition: TRANSFER TO SNF/ECF
== END 2021-12-10 16:18 | DRG 871 ==
LOC: EC 14:41 → 5NMEDONC 16:40
PROVIDERS: ADMIT Hospitalist; ATTEND Hospitalist
DX: A41.51 Sepsis due to Escherichia coli [E. coli] (principal); G93.41 Metabolic encephalopathy; N17.0 Acute kidney failure with tubular necrosis; N12 Tubulo-interstitial nephritis, not specified as acute or chronic; E87.1 Hypo-osmolality and hyponatremia; E87.2 Acidosis; R65.20 Severe sepsis without septic shock; N30.90 Cystitis, unspecified without hematuria; N18.31 Chronic kidney disease, stage 3a; J44.9 Chronic obstructive pulmonary disease, unspecified; E11.22 Type 2 diabetes mellitus with diabetic chronic kidney disease; E11.40 Type 2 diabetes mellitus with diabetic neuropathy, unspecified; Z79.4 Long term (current) use of insulin; Z71.6 Tobacco abuse counseling; F17.210 Nicotine dependence, cigarettes, uncomplicated; R74.01 Elevation of levels of liver transaminase levels; E66.9 Obesity, unspecified; Z68.38 Body mass index [BMI] 38.0-38.9, adult; E78.5 Hyperlipidemia, unspecified; E86.1 Hypovolemia; E87.70 Fluid overload, unspecified; F32.A Depression, unspecified; Z20.822 Contact with and (suspected) exposure to COVID-19; I12.9 Hypertensive chronic kidney disease with stage 1 through stage 4 chronic kidney disease, or unspecified chronic kidney disease; I25.2 Old myocardial infarction; Z96.82 Presence of neurostimulator; G89.29 Other chronic pain; M54.9 Dorsalgia, unspecified; F41.9 Anxiety disorder, unspecified; K21.9 Gastro-esophageal reflux disease without esophagitis; I25.10 Atherosclerotic heart disease of native coronary artery without angina pectoris; Z79.02 Long term (current) use of antithrombotics/antiplatelets; Z79.51 Long term (current) use of inhaled steroids; Z79.899 Other long term (current) drug therapy; Z80.52 Family history of malignant neoplasm of bladder; Z86.73 Personal history of transient ischemic attack (TIA), and cerebral infarction without residual deficits; Z87.11 Personal history of peptic ulcer disease; Z87.442 Personal history of urinary calculi; Z84.1 Family history of disorders of kidney and ureter; Z88.5 Allergy status to narcotic agent; Z88.0 Allergy status to penicillin; Z87.01 Personal history of pneumonia (recurrent)
CPT/HCPCS: 36415; 70450; 71046; 74176; 76770; 80048; 80053; 80306; 81001; 82140; 83036; 83605; 83735; 84132; 84484; 85025; 85027; 85610; 85730; 87040; 87077; 87086; 87186; 87635; 93005; 94640; 96365; 99285

== ENCOUNTER 2023-05-07 17:30 | Emergency (ER) | payer MEDICARE ==
[2023-05-07] MEDS ORDERED: SODIUM CHLORIDE 0.9% 1,000 ML IV STA (18:06)
[2023-05-07] MEDS ORDERED: IBUPROFEN 600 MG TAB PO STA (18:06)
[2023-05-07] MEDS ORDERED: ACETAMINOPHEN TAB 500 MG TAB PO STA (18:06)
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
[2023-05-07] MEDS ORDERED: IBUPROFEN IV 800 MG in SODIUM CHLORIDE 0.9% 250 ML IV ONE (18:13)
[2023-05-07] MEDS ORDERED: ACETAMINOPHEN IV (For NPO) 1,000 MG in EMPTY BAG 1 BAG IVPB STA (18:13)
[2023-05-07 18:40] LABS: ALT 70 U/L (4-34); AST 88 U/L (14-36); African American GFR (CKD) 28 (>60 ml/min/1.73 sqM); Albumin 3.3 g/dL (3.5-5.0); Alkaline Phosphatase 99 U/L (38-126); Anion Gap 12 mmol/L; Blood Urea Nitrogen 25 mg/dL (7-17); Calcium 8.5 mg/dL (8.4-10.2); Carbon Dioxide 18 mmol/L (22-30); Chloride 112 mmol/L (98-107); Glucose 113 mg/dL (74-99); Non-African American GFR(CKD) 24 (>60 ml/min/1.73 sqM); Phosphorus 2.8 mg/dL (2.5-4.5); Potassium 3.8 mmol/L (3.5-5.1); Sodium 142 mmol/L (137-145); Total Bilirubin 0.7 mg/dL (0.2-1.3); Total Protein 6.3 g/dL (6.3-8.2)
[2023-05-07 18:49] LABS: Basophils % (A) 0 %; Eosinophils % (A) 0 %; HCT 37.3 % (34.0-46.0); HGB 12.3 gm/dL (11.4-16.0); Lymphocytes # (A) 1.1 k/uL (1.0-4.8); Lymphocytes % (A) 15 %; MCH 27.4 pg (25.0-35.0); Monocytes # (A) 0.6 k/uL (0-1.0); Monocytes % (A) 7 %; Neutrophils # (A) 5.8 k/uL (1.3-7.7); Neutrophils % (A) 76 %; RBC 4.49 m/uL (3.80-5.40); RDW 15.3 % (11.5-15.5); WBC 7.7 k/uL (3.8-10.6)
--- NOTE | 2023-05-07 19:02 | XR ---
EXAM: XR chest 1V portable CLINICAL INDICATION:Female, 68 years old with history of cough; [facility] COMPARISON: 12/04/2021 TECHNIQUE: Chest single view. FINDINGS: EKG leads over the chest. Neurostimulator projected over the mid thoracic spine unchanged. Moderate e nlargement of the cardiac silhouette suggesting cardiomegaly, similar to previous. Unremarkable media stinum. Central airways appear patent. Hazy opacity of the left lung base attributed to soft tissue o verlap. Mild central vascular congestion. No focal lung consolidation, sizable effusion, or pneumotho rax. No acute bony abnormality. There are mild degenerative changes of the shoulders and spine. Unrem arkable soft tissues. IMPRESSION: Moderate cardiomegaly with mild vascular congestion.
[2023-05-07 19:27] LABS: Platelet Count 86 k/uL (150-450)
[2023-05-07 21:23] LABS: Appearance,Urine Clear (Clear); Bilirubin,Urine Negative (Negative); Blood,Urine Negative (Negative); Color,Urine Light Yellow; Glucose,Urine (UA) Negative (Negative); Ketones,Urine Negative (Negative); Leukocyte Esterase,Urine Negative (Negative); Mucus,Urine Rare /hpf; Nitrite,Urine Negative (Negative); Protein,Urine 2+ (Negative); RBC,Urine 1 /hpf (0-5); Specific Gravity,Urine 1.017 (1.001-1.035); Squamous Epithelial Cell,Urine 1 /hpf (0-4); Urobilinogen,Urine <2.0 mg/dL (<2.0); WBC,Urine 10 /hpf (0-5)
[2023-05-07] MEDS ORDERED: cefTRIAXone IN SWFI 1,000 MG/10 ML SYRINGE IVP STA (21:30)
[2023-05-07 23:58] VITALS: BP 183/71; PULSE 48; RESP 16; TEMP 98.8
== END 2023-05-07 23:38 | disposition home or self-care (01) ==
LOC: EEVIPCON 17:30 → EC 17:30
DX: R50.9 Fever, unspecified (principal); T50.Z95A Adverse effect of other vaccines and biological substances, initial encounter; E11.9 Type 2 diabetes mellitus without complications; E78.5 Hyperlipidemia, unspecified; I25.10 Atherosclerotic heart disease of native coronary artery without angina pectoris; K21.9 Gastro-esophageal reflux disease without esophagitis; M19.90 Unspecified osteoarthritis, unspecified site; J44.9 Chronic obstructive pulmonary disease, unspecified; F32.A Depression, unspecified; F41.9 Anxiety disorder, unspecified; I25.2 Old myocardial infarction; F17.200 Nicotine dependence, unspecified, uncomplicated; Z79.02 Long term (current) use of antithrombotics/antiplatelets; Z79.51 Long term (current) use of inhaled steroids; Z79.899 Other long term (current) drug therapy; Z88.0 Allergy status to penicillin; Z88.8 Allergy status to other drugs, medicaments and biological substances; Z88.5 Allergy status to narcotic agent; Z90.49 Acquired absence of other specified parts of digestive tract; Z20.822 Contact with and (suspected) exposure to COVID-19
CPT/HCPCS: 36415; 80053; 83605; 83735; 84100; 85025; 81001; 87040; 87636; 71045; 99285; 96375; 96365; 96366; 96368; 96361; J0696; J0131; J1741

== ENCOUNTER → 2023-12-11 | Outpatient (CLI) | payer MEDICARE, OTHER ==
--- NOTE | 2023-12-11 16:41 | CT ---
EXAMINATION TYPE: CT abdomen pelvis wo con CT DLP: 1254.4 mGycm, Automated exposure control for dose reduction was used. DATE OF EXAM: 12/11/2023 4:06 PM COMPARISON: CT abdomen pelvis 12/07/2021, 12/23/2018 CLINICAL INDICATION:Female, 68 years old with history of N20.0 CALCULUS OF KIDNEY N39.9 DISORDER OF U RINARY; CALCULUS OF RT KIDNEY, UTI TECHNIQUE: Standard CT of the abdomen and pelvis without IV or oral contrast. Lack of IV or oral co ntrast limits evaluation of solid and hollow organ viscera. Coronal and sagittal reformats were perfo rmed. FINDINGS: LOWER CHEST: Bibasilar subsegmental atelectasis. Cardiomegaly. Coronary arterial calcifications. ABDOMEN LIVER: Similar subtle surface nodularity. No focal lesion identified within limitations of a noncontr ast exam. Liver is again mildly enlarged measuring up to 24.1 cm in CC dimension. GALLBLADDER AND BILE DUCTS: Unremarkable. PANCREAS: Unremarkable noncontrast appearance SPLEEN: Spleen is again mildly enlarged measuring up to 17.6 cm. ADRENAL GLANDS: Unremarkable noncontrast appearance. KIDNEYS AND URETERS: No evidence of hydronephrosis. No left renal calculi. Atrophy of the left kidney redemonstrated. Stable right inferior pole nonobstructing 7 mm calculus. Slight increase in size of inferior right renal lower pole 2.9 cm cyst, previously 2.4 cm. PELVIS BLADDER: Incompletely distended but grossly unremarkable. REPRODUCTIVE: Unremarkable noncontrast appearance ABDOMEN & PELVIS STOMACH AND BOWEL: Stomach and duodenum are unremarkable. No focal bowel wall thickening or surround ing inflammatory changes. Redundant sigmoid colon. The appendix is within normal limits. No evidence of bowel obstruction. PERITONEUM: No evidence of pneumoperitoneum or free fluid. VASCULATURE: Aortobiiliac endovascular stent graft is again noted. Evaluation is limited due to lack of intervenous contrast. No abdominal aneurysm identified. Atherosclerotic calcification of the aorta and its branches. MUSCULOSKELETAL: No acute osseous abnormalities. Left gluteal spinal stimulator device with 2 leads e ntering the spinal canal at the T12-L1 level and coursing superiorly. Dextrocurvature of the thoracol umbar spine. Bilateral SI joint degenerative changes. Mild bilateral hip osteoarthritic changes. Mild multilevel degenerative disc disease. LYMPH NODES: No gross evidence for lymphadenopathy. SOFT TISSUE/ABDOMINAL WALL: Unremarkable IMPRESSION: 1. No CT evidence for acute process within limitations of a noncontrast exam. No obstructive uropathy . 2. Stable nonobstructive right renal 7 mm calculus. 3. Similar atrophy of the left kidney. 4. Hepatomegaly with similar subtle nodular contour to the liver. Correlate for cirrhosis. 5. Splenomegaly redemonstrated. 6. Postsurgical changes with aortobiiliac stent graft redemonstrated. Evaluation is limited due to la ck of intravenous contrast.
== END | disposition home or self-care (01) ==
LOC: RADCTMAIN 15:43
PROVIDERS: ATTEND Urology
DX: N20.0 Calculus of kidney (principal); N39.9 Disorder of urinary system, unspecified; R16.2 Hepatomegaly with splenomegaly, not elsewhere classified; K74.69 Other cirrhosis of liver; N26.1 Atrophy of kidney (terminal)
CPT/HCPCS: 74176

== ENCOUNTER 2024-07-18 12:56 | Inpatient (IN) | payer MEDICARE, OTHER ==
[2024-07-18] MEDS ORDERED: VANCOMYCIN IV PER PHARMACY 1 EACH MISC MISCELLANE PRN (13:09)
[2024-07-18] MEDS ORDERED: LACTATED RINGERS 1,000 ML IV SCH (13:15)
[2024-07-18 13:30] LABS: Basophils % (A) 0 %; Eosinophils % (A) 0 %; HCT 42.8 % (34.0-46.0); Hypochromasia Slight; Lymphocytes # (A) 1.6 k/uL (1.0-4.8); Lymphocytes % (A) 19 %; MCH 27.3 pg (25.0-35.0); MCHC 30.4 g/dL (31.0-37.0); MCV 89.8 fL (80.0-100.0); Mean Platelet Volume 9.2; Monocytes # (A) 0.6 k/uL (0-1.0); Monocytes % (A) 7 %; Neutrophils # (A) 5.9 k/uL (1.3-7.7); Neutrophils % (A) 71 %; RBC 4.77 m/uL (3.80-5.40); RDW 14.7 % (11.5-15.5); WBC 8.3 k/uL (3.8-10.6)
[2024-07-18] MEDS: cefTRIAXone IN SWFI 1,000 MG/10 ML SYRINGE IVP STA (13:34)
[2024-07-18] MEDS: LACTATED RINGERS 1,000 ML IV ONE (13:37)
[2024-07-18] MEDS: VANCOMYCIN 1,500 MG in SODIUM CHLORIDE 0.9% 500 ML 500 ML IVPB STA (13:37)
[2024-07-18] MEDS: ACETAMINOPHEN TAB 325 MG TAB PO STA (13:41)
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
[2024-07-18 13:58] LABS: INR 1.3 (<1.2); Partial Thromboplastin Time 26.6 sec (22.0-30.0); Prothrombin Time 13.6 sec (10.0-12.5)
[2024-07-18 14:00] LABS: Appearance,Urine Turbid (Clear); Bacteria,Urine Moderate /hpf; Bilirubin,Urine Negative (Negative); Blood,Urine Moderate (Negative); Budding Yeast,Urine Many /hpf; Color,Urine Yellow; Glucose,Urine (UA) 3+ (Negative); Ketones,Urine Negative (Negative); Leukocyte Esterase,Urine Large (Negative); Mucus,Urine Rare /hpf; Nitrite,Urine Positive (Negative); Protein,Urine 2+ (Negative); RBC,Urine 75 /hpf (0-5); Specific Gravity,Urine 1.019 (1.001-1.035); Urobilinogen,Urine <2.0 mg/dL (<2.0); WBC,Urine >182 /hpf (0-5)
[2024-07-18 14:02] LABS: Influenza A Not Detected (Not Detectd); Influenza B Not Detected (Not Detectd); RSV Detected (Not Detectd)
[2024-07-18 14:17] LABS: Platelet Count 158 k/uL (150-450)
[2024-07-18 14:54] LABS: ALT 101 U/L (4-34); AST 138 U/L (14-36); African American GFR (CKD) 31 (>60 ml/min/1.73 sqM); Albumin 3.4 g/dL (3.5-5.0); Alkaline Phosphatase 82 U/L (38-126); Anion Gap 11 mmol/L; Blood Urea Nitrogen 25 mg/dL (7-17); Carbon Dioxide 17 mmol/L (22-30); Chloride 112 mmol/L (98-107); Glucose 95 mg/dL (74-99); Non-African American GFR(CKD) 27 (>60 ml/min/1.73 sqM); Potassium 4.4 mmol/L (3.5-5.1); Sodium 140 mmol/L (137-145); Total Bilirubin 0.8 mg/dL (0.2-1.3); Total Protein 6.3 g/dL (6.3-8.2)
--- NOTE | 2024-07-18 14:59 | XR ---
EXAMINATION TYPE: XR chest 2V DATE OF EXAM: 07/18/2024 2:54 PM COMPARISON: Chest radiograph 05/07/2023. CLINICAL INDICATION: Female, 69 years old with history of Fever, scant wheeze RUL; PH[facility] TECHNIQUE: XR chest 2V Frontal and lateral views of the chest. FINDINGS: Lungs/Pleura: There is no evidence of pleural effusion, focal consolidation, or pneumothorax. Pulmonary vascularity: [id number] pulmonary vascular congestive changes. Heart/mediastinum: Clinically. Musculoskeletal: No acute osseous pathology. Other findings: None Lines/Tubes: Spinal stimulator device. IMPRESSION: Cardiomegaly and prominence of the interstitial markings bilaterally suggestive of pulmonary vascular congestion. Superimposed atypical infectious etiology would be possible as well. [facility], , 07/18/2024 2:57 PM
--- NOTE | 2024-07-18 15:06 | CT ---
EXAMINATION TYPE: CT brain wo con DATE OF EXAM: 07/18/2024 2:50 PM COMPARISON: Multiple prior CT studies, most recent dated 12/04/2021. CLINICAL INDICATION: Female, 69 years old with history of AMS, fever, AMS, fever TECHNIQUE: Brain: Axial CT images of the brain were obtained with coronal and sagittal reformats created and rev iewed. Contrast used: None. Oral contrast used: None. CT DLP: 2184.6 mGycm, Automated exposure control for dose reduction was used. FINDINGS: Brain: Prominence of the ventricles and sulci compatible generalized cerebral volume loss. No acute parenchy mal hemorrhage, midline shift or evidence of acute mass effect. Multifocal regions of encephalomalaci a involving the bilateral frontal, right occipital and left cerebellar hemispheres. No sizable extra axial fluid collection. Coil embolization clip in the region of the left vertebral artery. Patchy heber tricular and subcortical white matter hypoattenuation likely affecting chronic microvascular ischemic disease. No acute depressed calvarial fracture. No large scalp hematoma. Paranasal sinuses and masto id air cells are grossly patent. Basilar calcifications. IMPRESSION: No acute intracranial abnormality. [facility], , 07/18/2024 3:04 PM
[2024-07-18 15:27] LABS: NT-Pro-B-Type Natriuretic Pept 54100 pg/mL
[2024-07-18] MEDS ORDERED: MAG HYDROX/AL HYDROX/SIMETH 30 ML CUP PO PRN (16:27)
[2024-07-18] MEDS ORDERED: NALOXONE 0.4 MG/ML 1 ML VIAL IV PRN (16:27)
[2024-07-18] MEDS: IV FLUID CONTINUATION 1,000 ML IV ONE (17:02)
[2024-07-18] MEDS: ASPIRIN 325 MG TAB PO ONE (17:05)
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
[2024-07-18] MEDS: LIDOCAINE 1% INJ 10MG/ML (20 ML MDV) SQ ONE (17:19)
[2024-07-18] MEDS: MIDAZOLAM 2 MG/2 ML VIAL IVP ONE (17:19)
[2024-07-18] MEDS: VERAPAMIL SYRINGE (5 MG/10 ML) INTRAARTER ONE (17:20)
[2024-07-18] MEDS: HEPARIN SODIUM 1,000 UN/ML (10ML VL) IVP ONE (17:29)
[2024-07-18] MEDS: IOPAMIDOL-370 100ML BTL IVP ONE (17:41)
--- NOTE | 2024-07-18 17:53 | P.CARDCATH ---
Date of Procedure: 07/18/24 Description of Procedure: DIAGNOSTIC CORONARY ANGIOGRAPHY and LEFT HEART CATH REPORT PROCEDURES PERFORMED: Left heart catheterization Selective coronary angiography Moderate conscious sedation 20 mins [Ultrasound assisted] Right radial access INDICATION: [Unstable angina] BRIEF HPI: CONSENT: I have explained the procedural steps of above-mentioned procedures in layman's terms to the patient. I discussed the risks (including but not limited to stroke, emergent vascular or cardiac surgery or ), benefits and alternative therapies for the above-mentioned procedure. I discussed the risks of sedation/analgesia and blood product administration (if indicated). The patient has indicated understanding and acceptance of these risks. Conscious Sedation: Patient's ECG, heart rate, blood pressure, pulse oximetry were monitored throughout the duration of procedure under my direct supervision. 50 mcg Fentanyl were used for induction of moderate conscious sedation. Total duration of moderate concious sedation 20 minutes. PROCEDURAL DETAILS: Patient was prepped and draped in sterile fashion. 1% lidocaine was infiltrated over the right radial artery. Right radial access was obtained via modified seldinger technique.. Medications: 5mg of verapamil was administed in the radial sheet. 5000 Units of Heparin was administed once the catheter reached the aortic root Wires and Catheter used: J wire was advanced under fluroscopy to get to aortic root. 5 tamazight JR 4 diagnostic catheter was utilized obtain left ventricular pressure and pressure gradint across aortic valve. 5 tamazight JR 4 diagnostic catheter was used to selectively engage the right coronary ostium. 5 tamazight JL 3.5 diagnostic catheter was utilized to selectively engage the left coronary ostium. Angiographic images were reviewed in detail. Catheter and wire were removed. Radial sheet was flushed. The right radial sheath was removed and a TR band was placed. Patent hemostasis was achieved. The patient tolerated the procedure well. Patient was transported back to the post catheterization holding area in stable condition. TECHNICAL DETAILS Total radiation: 270 mGy Total fluro time: 8 minutes Total contrast used: Isovue 50 mL Complications: [none] Estimated Blood loss: less than 15 ml HEMODYNAMICS: Aortic Pressure: 170/90 mmHg. LV pressure: 178/10 mmHg. LVEDP 15 mmHg. There was no significant gradient across the aortic valve. SELECTIVE CORONARY ARTERIOGRAPHY: LEFT MAIN: Left main is patent. It trifurcates into LAD ramus and LCx. LEFT ANTERIOR DESCENDING CORONARY ARTERY: LAD is large caliber and its around the apex. Proximal mid and distal LAD appears angiographically patent. Distal part of mid LAD appears to have a prior stent which appears patent. Proximal LAD gives rise to a moderate caliber diagonal branch which has 20 to 30% disease in the proximal segment. Mid diagonal 1 has stent which appears patent. LEFT CIRCUMFLEX CORONARY ARTERY: It is nondominant vessel. Left circumflex is a moderate caliber vessel. Proximal LCx gives rise to a high OM1 branch which is small caliber and appears angiographically patent. Mid LCx is patent. Mid LCx continues to become a large caliber OM 2 branch which appears angiographically patent. RIGHT CORONARY ARTERY: Dominant vessel. The right coronary artery is a large caliber vessel. Proximal RCA has a long stent which appears widely patent. Mid and distal RCA appears angiographically patent. Distally it bifurcates into PDA and PL branch which appears angiographically patent. IMPRESSION: Angiographically patent coronary arteries as described above Patent stents in RCA, LAD, diagonal 1 Mildly elevated LVEDP PLAN: Continue DAPT Amlodipine 10 mg daily, metoprolol 25 mg twice daily, Farxiga 10 mg daily, Lipitor 40 mg daily IV fluids 75 cc/h for 6 hours Gentle diuresis thereafter because of pulmonary congestion Obtain echocardiogram Performing Physician Washington Merlos MD, FACC, RPVI Thank you for allowing [facility] to participate in this patient's care. Feel free to reach out in case of any followup questions.
--- NOTE | 2024-07-18 17:57 | P.EN ---
Monitor QTc Avoid QTc prolonging medication High suspicion of acute/subacute TIA/CVA
[2024-07-18] MEDS: amLODIPine 10 MG TAB PO SCH (18:22)
[2024-07-18] MEDS: METOPROLOL TARTRATE 25 MG TAB PO SCH (18:22)
[2024-07-18] MEDS: SODIUM CHLORIDE 0.9% 1,000 ML IV SCH (18:23)
[2024-07-18] MEDS: DEXTROSE 5%-0.45% NACL 1,000 ML IV SCH (20:13)
[2024-07-18] MEDS: ATORVASTATIN 40 MG TAB PO SCH (20:15)
[2024-07-19] MEDS: ACETAMINOPHEN TAB 325 MG TAB PO PRN (00:09)
[2024-07-19] MEDS: DAPAGLIFLOZIN PROPANEDIOL 10 MG TABLET PO SCH (07:51)
[2024-07-19] MEDS: ASPIRIN 81 MG PO SCH (07:51)
[2024-07-19] MEDS: PANTOPRAZOLE 40 MG/10 ML VIAL IV SCH (07:52)
[2024-07-19 08:36] LABS: Chol/HDL Ratio 2.74 Ratio; LDL Cholesterol,Calculated 38.6 mg/dL (0.0-131.0); VLDL Calculation 12.76 mg/dL (5.00-40.00)
[2024-07-19 10:02] LABS: African American GFR (CKD) 35 (>60 ml/min/1.73 sqM); Anion Gap 12 mmol/L; Blood Urea Nitrogen 28 mg/dL (7-17); Calcium 8.7 mg/dL (8.4-10.2); Carbon Dioxide 15 mmol/L (22-30); Chloride 111 mmol/L (98-107); Glucose 84 mg/dL (74-99); Non-African American GFR(CKD) 30 (>60 ml/min/1.73 sqM); Potassium 4.1 mmol/L (3.5-5.1); Sodium 138 mmol/L (137-145)
[2024-07-19] MEDS: VANCOMYCIN 1,500 MG in SODIUM CHLORIDE 0.9% 500 ML 500 ML IVPB ONE (10:04)
--- NOTE | 2024-07-19 14:18 | P.PN ---
Subjective Progress Note Date: 07/19/24 HISTORY OF PRESENTING ILLNESS: Patient is a 69-year-old female with past medical history of PAD, CAD. She had a last PCI done to mid RCA which was done in the emergency setting of an inferior STEMI in [address] Tobin. She is a resident of a long-term. She was sent to the hospital because she was noticed to be increasingly confused, generalized weak at the facility. On admission she had an evidence of RSV pneumonia along with UTI. On admission her tropes were elevated at 0.07. Her EKG showed sinus rhythm with [address] elevations with deep T wave inversions in lead V2 consistent with [facility] ECG. When compared to older EKG these EKG changes are definitely new. Patient is complaining of increased shortness of breath, generalized weakness. Denies any passing out, falls. Differential diagnosis includes acute/subacute CVA. Patient does have some changes in mental status and some slowness in her speech without any slurring or lateralizing neurological deficit. Patient does have history of dementia and has some delirium at this time because of sepsis. History is not reliable. Admission chest x-ray shows signs of bilateral pulmonary congestion CT head did not show any signs of acute bleeding. 07/19 Patient is seen and examined. She has been positive for RSV and in isolation. Yesterday, patient underwent cardiac catheterization which revealed patent coronary arteries and patent stents in the RCA, LAD, diagonal 1. Mildly elevated LVEDP. Blood pressure readings have been elevated 151/70, heart rate 64, pulse ox 93% on room air. Repeat blood work reveals BUN 28 creatinine 1.73. Concern for CVA has been ruled out by neurology PHYSICAL EXAMINATION: Neck: Brisk carotid upstroke, mildly elevated jugular venous distention. Lungs: Crackles audible about her lung valdez Heart: Regular rate and rhythm, S1-S2, no murmur or rub. Abdomen: Soft nontender, positive bowel sounds. Extremities: 1+ pitting edema bilateral extremity Neuro: Mildly confused, oriented to person place. ASSESSMENT: Deep T wave versions in lead V2 consistent with [facility] ECG Elevated troponin, likely NSTEMI RSV Sepsis with RSV pneumonia and complicated UTI Metabolic encephalopathy, likely multifactorial due to above Prior history of CAD status post PCI to RCA CKD, creatinine 2 at baseline. Dementia Essential hypertension PAD Morbid obesity Debility, long-term resident Cardiac testing Bedside echo shows an EF of 30 to 35% with mid to distal anterior wall hypokinesia. No pericardial effusion NT-proBNP 54,000, Trope 0.07 PLAN: Continue patient on amlodipine 10 mg daily, aspirin 81 mg daily, Lipitor, Farxiga, Lopressor 25 mg twice daily Further recommendations to follow Nurse practitioner note has been reviewed, I agree with documented findings and plan of care. Patient was seen and examined. Objective - Vital Signs Vital signs: Vital Signs Temp 99.9 F H 07/19/24 07:51 Pulse 64 07/19/24 07:51 Resp 16 07/19/24 07:51 BP 151/70 07/19/24 07:51 Pulse Ox 93 L 07/19/24 07:51 FiO2 Intake & Output 07/18/24 07/19/24 07/19/24 18:59 06:59 18:59 Intake Total 100 120 Output Total 0 Balance 100 120 Weight 88.632 kg 91.5 kg Intake: IV 100 Oral 120 Output: Gastric Drainage 0 Urine 0 Stool 0 Urine/Stool Mix 0 Emesis 0 Oral Regurgitation 0 Other 0 Other: Voiding Method Diaper # Voids 0 1 # Bowel Movements 0 1 1 - Labs CBC & Chem 7: 07/18/24 13:14 07/19/24 09:28 Labs: Abnormal Lab Results - Last 24 Hours (Table) 07/18/24 07/18/24 07/18/24 Range/Units 13:14 13:14 13:14 MCHC 30.4 L (31.0-37.0) g/dL PT 13.6 H (10.0-12.5) sec INR 1.3 H (<1.2) Chloride (98-107) mmol/L Carbon Dioxide (22-30) mmol/L BUN (7-17) mg/dL Creatinine (0.52-1.04) mg/dL AST (14-36) U/L ALT (4-34) U/L Troponin I 0.070 H* (0.000-0.034) ng/mL Albumin (3.5-5.0) g/dL HDL Cholesterol (40.00-60.00) mg/dL Urine Appearance (Clear) Urine Protein (Negative) Urine Glucose (UA) (Negative) Urine Blood (Negative) Urine Nitrite (Negative) Ur Leukocyte Esterase (Negative) Urine RBC (0-5) /hpf Urine WBC (0-5) /hpf Urine WBC Clumps (None) /hpf Urine Bacteria (None) /hpf Urine Mucus (None) /hpf Urine Yeast (Budding) (None) /hpf RSV (PCR) (Not Detectd) 07/18/24 07/18/24 07/18/24 Range/Units 13:14 13:15 14:14 MCHC (31.0-37.0) g/dL PT (10.0-12.5) sec INR (<1.2) Chloride 112 H (98-107) mmol/L Carbon Dioxide 17 L (22-30) mmol/L BUN 25 H (7-17) mg/dL Creatinine 1.90 H (0.52-1.04) mg/dL AST 138 H (14-36) U/L ALT 101 H (4-34) U/L Troponin I (0.000-0.034) ng/mL Albumin 3.4 L (3.5-5.0) g/dL HDL Cholesterol (40.00-60.00) mg/dL Urine Appearance Turbid H (Clear) Urine Protein 2+ H (Negative) Urine Glucose (UA) 3+ H (Negative) Urine Blood Moderate H (Negative) Urine Nitrite Positive H (Negative) Ur Leukocyte Esterase Large H (Negative) Urine RBC 75 H (0-5) /hpf Urine WBC >182 H (0-5) /hpf Urine WBC Clumps Many H (None) /hpf Urine Bacteria Moderate H (None) /hpf Urine Mucus Rare H (None) /hpf Urine Yeast (Budding) Many H (None) /hpf RSV (PCR) Detected A (Not Detectd) 07/18/24 07/18/24 07/18/24 Range/Units 14:14 19:01 19:01 MCHC (31.0-37.0) g/dL PT (10.0-12.5) sec INR (<1.2) Chloride (98-107) mmol/L Carbon Dioxide (22-30) mmol/L BUN (7-17) mg/dL Creatinine (0.52-1.04) mg/dL AST (14-36) U/L ALT (4-34) U/L Troponin I 0.069 H* 0.080 H* (0.000-0.034) ng/mL Albumin (3.5-5.0) g/dL HDL Cholesterol 29.60 L (40.00-60.00) mg/dL Urine Appearance (Clear) Urine Protein (Negative) Urine Glucose (UA) (Negative) Urine Blood (Negative) Urine Nitrite (Negative) Ur Leukocyte Esterase (Negative) Urine RBC (0-5) /hpf Urine WBC (0-5) /hpf Urine WBC Clumps (None) /hpf Urine Bacteria (None) /hpf Urine Mucus (None) /hpf Urine Yeast (Budding) (None) /hpf RSV (PCR) (Not Detectd)
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
--- NOTE | 2024-07-19 15:25 | US ---
EXAMINATION TYPE: US carotid duplex BILAT DATE OF EXAM: 07/19/2024 COMPARISON: NONE CLINICAL INDICATION: Female, 69 years old with history of stroke, ams; Stroke Additional History: .... TECHNIQUE: Grayscale, color Doppler and spectral Doppler evaluation of the bilateral carotid systems and vertebral arteries. Indirect Doppler criteria was utilized. FINDINGS: EXAM MEASUREMENTS: RIGHT: Peak Systolic Velocity (PSV) cm/sec ----- Right CCA: 54.0 ----- Right ICA: 228.3 ----- Right ECA: 92.4 ICA/CCA ratio: 4.2 RIGHT: End Diastole cm/sec ----- Right CCA: 10.4 ----- Right ICA: 33.2 ----- Right ECA: 15.6 LEFT: Peak Systolic Velocity (PSV) cm/sec ----- Left CCA: 123.3 ----- Left ICA: 114.1 ----- Left ECA: 104.1 ICA/CCA ratio: 0.9 LEFT: End Diastole cm/sec ----- Left CCA: 13.7 ----- Left ICA: 19.5 ----- Left ECA: 9.6 VERTEBRALS (direction of flow): Right Vertebral: Antegrade Left Vertebral: Antegrade Rhythm: Normal WOOD MODEL BUILDER NOTES: Heterogeneous plaque with elevated velocities, more on right side- left side diffi cult to scan, limited, due to pt uncooperative, moving and talking during exam Color Doppler imaging shows patency with blood flow throughout the carotid artery. Spectral waveforms are within normal limits. IMPRESSION: Right: Greater than 70% stenosis of the carotid bifurcation. Consider evaluation with CT angiogram. Left: Less than 50% stenosis of the carotid bifurcation. Criteria for Assigning % of Stenosis / Diameter reduction (Estimation based on the indirect measurements of the internal carotid artery velocities (ICA PSV). 1. Normal (no stenosis)=ICA PSV < 125 cm/s: ratio < 2.0: ICA EDV<40 cm/s. 2. Less than 50% stenosis=ICA PSV < 125 cm/s: ratio < 2.0: ICA EDV<40 cm/s. 3. 50 to 69% stenosis=ICA PSV of 125 to 230 cm/s: ration 2.0 ? 4.0: ICA EDV 40-100 cm/s. 4. Greater than 70% stenosis to near occlusion= ICA PSV > 230 cm/s: ratio > 4.0: ICA EDV > 100 cm/s. 5. Near occlusion= ICA PSV velocities may be low or undetectable: variable ratio and ICA EDV. 6. Total occlusion=unable to detect flow. [facility], , 07/19/2024 3:23 PM
--- NOTE | 2024-07-19 16:29 | CA ---
Transthoracic Echo Report Name: Starr James Age: 69 Gender: F : 1955 Exam Date: 07/19/2024 08:39 Exam Location: [facility] Ht (in): 66 Wt (lb): 195 Ordering Physician: Washington Merlos MD ([id number]) Attending/Referring Phys: Ob Tech Khalif Dodge RDCS Procedure CPT: Indications: Stress Cardiomyopathy Cardiac Hx: CAD, CKD, COPD, CVA, Diabetes, MA Technical Quality: Good Contrast 1: Total Dose (mL): Contrast 2: Total Dose (mL): MEASUREMENTS (Male / Female) Normal Values 2D ECHO LV Diastolic Diameter PLAX 4.9 cm 4.2 - 5.9 / 3.9 - 5.3 cm LV Systolic Diameter PLAX 3.4 cm IVS Diastolic Thickness 1.3 cm 0.6 - 1.0 / 0.6 - 0.9 cm LVPW Diastolic Thickness 1.3 cm 0.6 - 1.0 / 0.6 - 0.9 cm LV Relative Wall Thickness 0.5 LVOT Diameter 1.8 cm Aortic Root Diameter 2.9 cm LV Diastolic Volume MOD 4C 128.6 cm??? LV Systolic Volume MOD 4C 56.7 cm??? LV Ejection Fraction MOD 4C 55.9 % LV Cardiac Index MOD 4C 2060.0 cm???/min???m??? LV Diastolic Length 4C 8.4 cm LV Systolic Length 4C 7.5 cm LA Volume 81.7 cm??? 18 - 58 / 22 - 52 cm??? LA Volume Index 39.7 cm???/m??? 16 - 28 cm???/m??? DOPPLER MV Peak Velocity 133.2 cm/s MV Peak Gradient 7.1 mmHg MV Mean Velocity 70.9 cm/s MV Mean Gradient 2.4 mmHg MV Velocity Time Integral 45.5 cm MV Area PHT 1.9 cm??? Mitral E Point Velocity 91.7 cm/s Mitral A Point Velocity 118.0 cm/s Mitral E to A Ratio 0.8 MV Deceleration Time 425.6 ms TR Peak Velocity 305.8 cm/s TR Peak Gradient 37.4 mmHg Right Atrial Pressure 5.0 mmHg Pulmonary Artery Systolic Pressu 42.4 mmHg Right Ventricular Systolic Press 42.4 mmHg FINDINGS Left Ventricle Left ventricular ejection fraction is estimated at 55-60%. Mildly increased septal wall thickness. Mildly increased posterior wall thickness. Mild concentric left ventricular hypertrophy. . No obvious regional wall motion abnormalities. Right Ventricle Normal right ventricular size. Mild pulmonary hypertension. Right Atrium Normal right atrial size. Left Atrium Moderately increased left atrial volume. Mildly increased left atrial area. Mitral Valve Thickend mitral valve. No mitral stenosis. Trace mitral regurgitation. Aortic Valve Trileaflet aortic valve. Thickened aortic valve without stenosis. No aortic regurgitation. Tricuspid Valve Structurally normal tricuspid valve. No tricuspid stenosis. Mild tricuspid regurgitation. Pulmonic Valve Structurally normal pulmonic valve. No pulmonic stenosis. No pulmonic regurgitation. Pericardium No pericardial effusion. Aorta Normal size aortic root and proximal ascending aorta. CONCLUSIONS Left ventricular ejection fraction 55-60% Mildly increased left ventricular wall thickness RVSP 42 Mild to moderate LA dilation Trace mitral regurgitation Mild tricuspid regurgitation Previewed by: Dr. Brendan Patel DO (Electronically Signed) Final Date: 19 July 2024 16:29
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
[2024-07-20 07:41] LABS: African American GFR (CKD) 33 (>60 ml/min/1.73 sqM); Non-African American GFR(CKD) 29 (>60 ml/min/1.73 sqM)
[2024-07-20] MEDS: SERTRALINE 100 MG TAB PO SCH (08:46)
[2024-07-20] MEDS: SYMBICORT 160-4.5 MCG INHALER INHALATION SCH (09:58)
[2024-07-20] MEDS: ALBUTEROL HFA INHALER INHALATION SCH (09:58)
--- NOTE | 2024-07-20 11:32 | CT ---
EXAMINATION TYPE: CT brain wo con DATE OF EXAM: 07/20/2024 11:14 AM COMPARISON: 07/18/2024 04/10/2020. CLINICAL INDICATION: Female, 69 years old with history of AMS, ams TECHNIQUE: Brain: Axial CT images of the brain were obtained with coronal and sagittal reformats created and rev iewed. Contrast used: None. Oral contrast used: None. CT DLP: 1098.4 mGycm, Automated exposure control for dose reduction was used. FINDINGS: Brain: Extra-axial spaces: No abnormal extra-axial fluid collections. Ventricular system: Within normal limits Cerebral parenchyma: Encephalomalacia the right occipital lobe and right frontal lobe anterior latera lly. Bilateral frontal lobes anteriorly. No acute intraparenchymal hemorrhage or mass effect. The re mainder of the lance-white junctions are well differentiated. Scattered hypoattenuating areas are seen within the white matter. Cerebellum: Left cerebellar hemisphere encephalomalacia anteriorly. Mass effect: No evidence of midline shift. Intracranial vasculature: Atherosclerotic calcifications of the intracranial vessels. Soft tissues: Normal. Calvarium/osseous structures: No depressed skull fracture. Paranasal sinuses and mastoid air cells: Mild scattered paranasal sinus disease. Visualized orbits: Orbital contents are intact. IMPRESSION: 1. No acute intracranial process. 2. Remote injury to the right occipital lobe, left inferior cerebellar hemisphere and bilateral fron alejandrina lobes anteriorly and right frontal lobe lateral anteriorly. [facility], , 07/20/2024 11:30 AM
--- NOTE | 2024-07-20 13:36 | P.PN ---
Subjective Progress Note Date: 07/20/24 HISTORY OF PRESENTING ILLNESS: Patient is a 69-year-old female with past medical history of PAD, CAD. She had a last PCI done to mid RCA which was done in the emergency setting of an inferior STEMI in [address] Tobin. [facility] She was sent to the hospital because she was noticed to be increasingly confused, generalized weak at the facility. On admission she had an evidence of RSV pneumonia along with UTI. On admission her tropes were elevated at 0.07. Her EKG showed sinus rhythm with [address] elevations with deep T wave inversions in lead V2 consistent with Wellens ECG. When compared to older EKG these EKG changes are definitely new. Patient is complaining of increased shortness of breath, generalized weakness. Denies any passing out, falls. Differential diagnosis includes acute/subacute CVA. Patient does have some changes in mental status and some slowness in her speech without any slurring or lateralizing neurological deficit. Patient does have history of dementia and has some delirium at this time because of sepsis. History is not reliable. Admission chest x-ray shows signs of bilateral pulmonary congestion CT head did not show any signs of acute bleeding. 07/19 Patient is seen and examined. She has been positive for RSV and in isolation. Yesterday, patient underwent cardiac catheterization which revealed patent coronary arteries and patent stents in the RCA, LAD, diagonal 1. Mildly elevated LVEDP. Blood pressure readings have been elevated 151/70, heart rate 64, pulse ox 93% on room air. Repeat blood work reveals BUN 28 creatinine 1.73. Concern for CVA has been ruled out by neurology 07/20 Patient seen and examined. Patient continues to have cough and wheezing. She states she is feeling better. CAT scan of the brain ordered by neurology revealed no acute process. Carotid ultrasound revealed right greater than 70% stenosis, left less than 50% stenosis. Echocardiogram reveals EF 55 to 60%, RVSP 42, trace mitral regurgitation. Mild tricuspid regurgitation. PHYSICAL EXAMINATION: Neck: Brisk carotid upstroke, mildly elevated jugular venous distention. Lungs: Crackles audible about her lung valdez Heart: Regular rate and rhythm, S1-S2, no murmur or rub. Abdomen: Soft nontender, positive bowel sounds. Extremities: 1+ pitting edema bilateral extremity Neuro: Mildly confused, oriented to person place. ASSESSMENT: Deep T wave versions in lead V2 consistent with Wellens ECG Elevated troponin, likely NSTEMI secondary to sepsis RSV Sepsis with RSV pneumonia and complicated UTI Metabolic encephalopathy, likely multifactorial due to above Prior history of CAD status post PCI to RCA CKD, creatinine 2 at baseline. Dementia Essential hypertension PAD Morbid obesity Debility, jail resident PLAN: Continue patient on amlodipine 10 mg daily, aspirin 81 mg daily, Lipitor, Farxiga, Lopressor 25 mg twice daily No further cardiac workup at this time Patient is cleared for discharge from a cardiology perspective. Cardiology will sign off this case and follow on an as-needed basis. Please reconsult for any new concerns. Patient may follow-up in the office in [address] Tobin. Nurse practitioner note has been reviewed, I agree with documented findings and plan of care. Patient was seen and examined. Objective - Vital Signs Vital signs: Vital Signs Temp 99.2 F 07/20/24 07:20 Pulse 67 07/20/24 07:20 Resp 16 07/20/24 07:20 BP 140/66 07/20/24 07:20 Pulse Ox 96 07/20/24 07:20 FiO2 Intake & Output 07/19/24 07/20/24 07/20/24 18:59 06:59 18:59 Intake Total 240 240 Output Total 200 300 Balance 40 -60 Weight 91.5 kg Intake: Oral 240 240 Output: Urine 200 300 Other: Voiding Method Diaper Diaper External Catheter External Catheter # Bowel Movements 1 - Labs CBC & Chem 7: 07/18/24 13:14 07/20/24 07:07 Labs: Abnormal Lab Results - Last 24 Hours (Table) 07/19/24 07/20/24 Range/Units 09:28 07:07 Chloride 111 H (98-107) mmol/L Carbon Dioxide 15 L (22-30) mmol/L BUN 28 H (7-17) mg/dL Creatinine 1.73 H 1.80 H (0.52-1.04) mg/dL Microbiology - Last 24 Hours (Table) 07/18/24 13:14 Blood Culture - Preliminary Blood
--- NOTE | 2024-07-20 13:58 | P.PN ---
Subjective Progress Note Date: 07/20/24 I am following up with the patient and she feels she is doing well. No new neurological issues. According to the nurse yesterday patient unable to obtain MRI because of her coil as a result patient received a repeat CT of the head today which is stable compared to the recent one. Objective - Vital Signs Vital signs: Vital Signs Temp 99.2 F 07/20/24 07:20 Pulse 68 07/20/24 11:56 Resp 16 07/20/24 11:56 BP 131/67 07/20/24 11:56 Pulse Ox 94 L 07/20/24 11:56 FiO2 Intake & Output 07/19/24 07/20/24 07/20/24 18:59 06:59 18:59 Intake Total 240 240 Output Total 200 300 Balance 40 -60 Weight 91.5 kg Intake: Oral 240 240 Output: Urine 200 300 Other: Voiding Method Diaper Diaper Diaper External Catheter External Catheter External Catheter # Bowel Movements 1 - Exam GENERAL: The patient is lying in bed and is not in acute distress. NEUROLOGICAL: Higher mental function: The patient is awake, alert, oriented to self, place and time. Is following simple commands. No aphasia. Cranial nerves: The pupils are round, equal and reactive to light and accommodation. Visual valdez are full to confrontation throughout. Extraocular movement is intact no nystagmus is noted. Facial sensation is normal to touch throughout. The facial strength is normal throughout. Hearing is mildly decreased bilaterally to hand rub. Tongue is midline and moved [id number] without any difficulty. No dysarthria is noted. Shoulder shrug is normal bilaterally. Motor: The strength is limited but left upper extremity appears 4+ to 5 -. Right upper extremity is 5/5. Bilateral hand barrel centerer is 5 out of 5. Lower extremity seems limited because of significant pain but was able to wiggle her toes. Normal tone and bulk. Sensation: Sensation is normal to touch throughout. Some of the workup during this hospital visit consisted of: Patient has a temperature of 103F maximum. White blood cells within normal limits Troponin is elevated as high as 0.08 AST is 138 and ALT is 101 TSH is 2.20 Lipid panel as triglyceride is 63, cholesterol is 81, LDL is 38 and HDL is 29 Urinalysis seems suggestive of like urinary tract infection and RSV PCR is detected CT head is reported as no acute intracranial abnormality. I personally reviewed the CT and I agree there is no acute process. Patient has an old right STORY READER stroke. Seems the patient has encephalomalacia involving the bilateral frontal which is reported on report Carotid duplex is reported as less than 50% stenosis of the carotid bifurcation. 2D echo was reported as ejection fraction of 55 to 60%. Mildly increased left ventricular wall thickness. Mild to moderate left atrial dilation. Repeat CT of the head today is reported as no acute intracranial process. Remote injury in the right occipital left inferior cerebellar hemisphere and bilateral frontal lobes anterior and the right frontal lobe laterally anteriorly - Labs CBC & Chem 7: 07/18/24 13:14 07/20/24 07:07 Labs: Abnormal Lab Results - Last 24 Hours (Table) 07/20/24 Range/Units 07:07 Creatinine 1.80 H (0.52-1.04) mg/dL Microbiology - Last 24 Hours (Table) 07/18/24 13:14 Blood Culture - Preliminary Blood Assessment and Plan Assessment: This is a 69-year-old woman who presents from [facility] because of altered mental status. Seems the patient had a recent urinary tract infection. She has EKG changes, Wellens waves noted on lead V2 and field talent qualification specialist is concerned about acute stroke. Head CT of the head which was unremarkable for any acute process. I was notified her last normal state was a week ago. She has positive RSV, UTI, elevated liver function test. Today her mentation drastically better. Altered mental status seems due to metabolic encephalopathy, septic encephalopathy from UTI and RSV also has transaminitis. Repeat CT of the head is unremarkable for any acute process--mentation is improved and is back to baseline. EKG changes, Wellens waves noted on lead V2 and field talent qualification specialist is concerned about acute stroke. Had two CT head which is negative acute stroke. Unable to perform MRI Brain. Transaminitis Acute urinary tract infection likely RSV Elevated troponin and concern for NSTEMI History of dementia and it seems patient is oriented x 2 History of brain aneurysm status post coil in 2009 at [facility] as a sequela patient had strokes History of chronic kidney disease Hypertension History of coronary artery disease status post stent Plan: As stated earlier patient had 2 CT of the head and they are unremarkable for any acute process. Therefore patient does not have any acute stroke. Cardiology Patient is on aspirin 81 mg Patient is also on Lipitor 40 mg nightly. Will defer the rest of the medical management to primary and other specialist Recommend the patient to follow-up with a neurologist as an outpatient within 3 to 4 weeks. There is no further neurological workup. Will sign off. Please reconsult if needed. Time with Patient: Less than 30
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
[2024-07-20] MEDS: DEXTROSE 5% IN WATER 1,000 ML with SODIUM BICARB (1 MEQ/ML) 50 ML IV SCH (18:06)
[2024-07-20] MEDS: TOPIRAMATE 25 MG TAB PO SCH (20:28)
[2024-07-20] MEDS: TOPIRAMATE 100 MG TAB PO SCH (20:28)
[2024-07-20] MEDS ORDERED: VANCOMYCIN 1,500 MG in SODIUM CHLORIDE 0.9% 500 ML 500 ML IVPB ONE (21:00)
[2024-07-21 07:19] LABS: African American GFR (CKD) 38 (>60 ml/min/1.73 sqM); Anion Gap 8 mmol/L; Blood Urea Nitrogen 22 mg/dL (7-17); Calcium 8.3 mg/dL (8.4-10.2); Carbon Dioxide 18 mmol/L (22-30); Chloride 110 mmol/L (98-107); Glucose 93 mg/dL (74-99); Non-African American GFR(CKD) 33 (>60 ml/min/1.73 sqM); Potassium 3.4 mmol/L (3.5-5.1); Sodium 136 mmol/L (137-145)
[2024-07-21] MEDS: IPRATROPIUM-ALBUTEROL 3 ML NEB INHALATION SCH (13:09)
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
[2024-07-21] MEDS: POTASSIUM CHLORIDE ER 20 MEQ TAB.ER PO STA (18:24)
[2024-07-21] MEDS: BUDESONIDE 1 MG/2 ML NEBU INHALATION SCH (21:18)
[2024-07-22 09:04] LABS: African American GFR (CKD) 41 (>60 ml/min/1.73 sqM); Anion Gap 10 mmol/L; Blood Urea Nitrogen 20 mg/dL (7-17); Calcium 8.4 mg/dL (8.4-10.2); Carbon Dioxide 19 mmol/L (22-30); Chloride 108 mmol/L (98-107); Glucose 92 mg/dL (74-99); Non-African American GFR(CKD) 36 (>60 ml/min/1.73 sqM); Potassium 3.6 mmol/L (3.5-5.1); Sodium 137 mmol/L (137-145)
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
--- NOTE | 2024-07-23 07:17 | CT ---
EXAMINATION TYPE: CT angio head neck DATE OF EXAM: 07/23/2024 COMPARISON: Carotid ultrasound 4 days earlier CLINICAL INDICATION: Female, 69 years old with history of Hx of stroke and TIA, right ICA stenosis on US, Hx of stroke and TIA, right ICA stenosis on US, TECHNIQUE: CTA scan of the head and neck is performed with IV Contrast, patient injected with 65 mL of Isovue 370, axial images are obtained, coronal and sagittal reformatted images are reviewed. 3D re constructed images are created on an independent workstation and reviewed. NASCET criteria was used i n interpretation of this exam? CT DLP: 1843 mGycm. Automated Exposure Control for Dose Reduction was Utilized. FINDINGS: Suboptimal study as thin cut images are not provided for more accurate interpretation. In a ddition there is patient motion noted along with less than ideal contrast bolus making evaluation sub optimal. CTA HEAD: Motion limitation. Poorly visualized or hypoplastic bilateral posterior communicating arteries and an terior communicating artery. No obvious large vessel contusion or aneurysm is seen. Patent draining d ural venous sinuses are noted. CTA NECK: Right Carotid System: The common carotid artery and external carotid artery are patent. The carotid bifurcation demonstrate s moderate to severe focal calcified plaque. Luminal diameter is narrowed to 1.3 mm and reconstructed to 5.7 mm superior to this. There is severe calcified plaque in the distal right internal carotid ar gladys. Difficult to exclude significant stenosis at this level at the skull base. Left Carotid System: The common carotid artery and external carotid artery are patent. The carotid bifurcation demonstrate s moderate mixed plaque without hemodynamically significant stenosis. The remaining portions of the i nternal carotid artery demonstrate moderate peripheral calcified plaque distally without significant stenosis. Vertebral arteries are patent without evidence hemodynamically significant stenosis. Left vertebral a rtery is dominant. There is aneurysm clip along course of the distal left vertebral artery axial imag e 120 series 501. There is a bovine arch which is normal variant. The origins of the great vessels are patent. No evide nce of hemodynamically significant stenosis. Noncontrast CT brain demonstrates old left cerebellar infarct and old infarct medial right occipital lobe and right frontal lobe. No opacification or fluid is seen in the bilateral maxillary sinuses, bilateral sphenoid sinuses, and the right frontal and ethmoid sinuses. There is additional moderate opacification of the ethmoid sin uses bilaterally. IMPRESSION: Suboptimal study. Confirmation of hemodynamically significant stenosis measured between 75-80% at th e origin of the right internal carotid artery is present. Severe calcified plaque distal right technology internship al carotid artery. Cannot exclude significant stenosis at this level. Consider direct catheter angiog sariah to further evaluate. No obvious large vessel occlusion or aneurysm at the level of the minto of [place]. [facility], , 07/23/2024 7:15 AM
--- NOTE | 2024-07-23 08:11 | XR ---
EXAMINATION TYPE: XR chest 1V portable DATE OF EXAM: 07/23/2024 7:20 AM COMPARISON: Chest radiographs from CLINICAL INDICATION: Female, 69 years old with history of Cough; [facility] TECHNIQUE: XR chest 1V portable Frontal view of the chest. FINDINGS: Lungs/Pleura: There is no evidence of pleural effusion, focal consolidation, or pneumothorax. Pulmonary vascularity: Pulmonary vascular congestion. Heart/mediastinum: Cardiomediastinal silhouette is enlarged and stable. Musculoskeletal: No acute osseous pathology. Other findings: None Lines/Tubes: Stimulator leads project over the spine. IMPRESSION: Cardiomegaly and mild pulmonary vascular congestion. Correlate with BNP for congestive heart failure. [facility], , 07/23/2024 8:08 AM
--- NOTE | 2024-07-23 10:10 | P.PN ---
Subjective Progress Note Date: 07/23/24 Principal diagnosis: Carotid stenosis Patient seen and examined today as a follow-up. No acute changes through the night. CT angiogram head and neck reports between 75 and 80% stenosis at the origin of the right internal carotid artery with severe calcified plaque distal right internal carotid artery. Objective - Vital Signs Vital signs: Vital Signs Temp 97.8 F 07/23/24 03:41 Pulse 64 07/23/24 03:41 Resp 18 07/23/24 03:41 BP 134/82 07/23/24 03:41 Pulse Ox 100 07/23/24 03:41 FiO2 Intake & Output 07/22/24 07/23/24 07/23/24 18:59 06:59 18:59 Intake Total 360 240 Output Total 500 500 Balance -140 -260 Weight 90.5 kg Intake: Oral 360 240 Output: Urine 500 500 Other: Voiding Method Incontinent Incontinent External Catheter External Catheter - Exam General appearance: The patient is alert, oriented, appears in no acute distress. HET: Head is normocephalic and atraumatic. Neck: Supple. Lungs: Equal expansion, normal respiratory effort. Abdomen: Soft, nondistended. Extremities: Normal skin color and turgor. Neurological: Alert and oriented to self and place. - Labs CBC & Chem 7: 07/18/24 13:14 07/22/24 07:56 Labs: Abnormal Lab Results - Last 24 Hours (Table) 07/22/24 Range/Units 07:56 Chloride 108 H (98-107) mmol/L Carbon Dioxide 19 L (22-30) mmol/L BUN 20 H (7-17) mg/dL Creatinine 1.51 H (0.52-1.04) mg/dL Assessment and Plan Assessment: 1. Asymptomatic right ICA stenosis, greater than 70% 2. Altered mental status changes likely secondary to metabolic encephalopathy from UTI and RSV 3. Urinary tract infection 4. Positive RSV 5. History of remote stroke 6. Coronary artery disease 7. History of brain aneurysm status post coiling in 2009 8. History of chronic kidney disease 9. Hypertension hyperlipidemia Plan: 1. No plans for any vascular surgical intervention at this time 2. CT angiogram ordered and reviewed 3. Recommend outpatient follow-up with vascular surgery to further discuss possible surgical intervention for right ICA stenosis once infections clear. This was discussed with patient's daughter Flores Rain over the phone, who is agreeable with plan. 4. Patient will need outpatient cardiac clearance prior to any surgical procedures 5. Continue aspirin 81 mg daily, atorvastatin 40 mg at at bedtime 6. Rest of medical management per primary medical team Thank you for this consultation, we will sign off at this time. The impression and plan of care has been dictated as directed. Dr. Child I performed a history and examination of this patient, discussed the same with the dictator. I agree with the dictator's note ,documented as a scribe. Any additional findings or plans will be noted.
[2024-07-23 10:26] LABS: African American GFR (CKD) 44 (>60 ml/min/1.73 sqM); Anion Gap 9 mmol/L; Blood Urea Nitrogen 20 mg/dL (7-17); Calcium 8.4 mg/dL (8.4-10.2); Carbon Dioxide 22 mmol/L (22-30); Chloride 106 mmol/L (98-107); Glucose 109 mg/dL (74-99); Non-African American GFR(CKD) 38 (>60 ml/min/1.73 sqM); Potassium 3.5 mmol/L (3.5-5.1); Sodium 137 mmol/L (137-145)
[2024-07-23 12:15] VITALS: BMI 32.2
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
[2024-07-23] MEDS: FUROSEMIDE 10 MG/ML 4 ML VIAL IV STA (17:23)
[2024-07-24 07:50] LABS: African American GFR (CKD) 39 (>60 ml/min/1.73 sqM); Anion Gap 10 mmol/L; Blood Urea Nitrogen 18 mg/dL (7-17); Calcium 8.5 mg/dL (8.4-10.2); Carbon Dioxide 25 mmol/L (22-30); Chloride 105 mmol/L (98-107); Glucose 88 mg/dL (74-99); Non-African American GFR(CKD) 34 (>60 ml/min/1.73 sqM); Potassium 3.4 mmol/L (3.5-5.1); Sodium 140 mmol/L (137-145)
[2024-07-24 11:28] VITALS: RESP 18
[2024-07-24] MEDS: POTASSIUM CHLORIDE ER 20 MEQ TAB.ER PO STA (12:57)
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
[2024-07-24 15:57] VITALS: BP 125/88; TEMP 98.1
[2024-07-24 16:12] VITALS: PULSE 60
== END 2024-07-24 18:22 | DRG 871 ==
LOC: EC 12:56 → 3SCARD 16:30
PROVIDERS: ADMIT Hospitalist; ATTEND Hospitalist
PROC: B2111ZZ Fluoroscopy of Multiple Coronary Arteries using Low Osmolar Contrast (ICD-10-PCS; principal; 2024-07-18 16:39)
PROC: 4A023N7 Measurement of Cardiac Sampling and Pressure, Left Heart, Percutaneous Approach (ICD-10-PCS; principal; 2024-07-18 16:39)
DX: A41.9 Sepsis, unspecified organism (principal); G93.41 Metabolic encephalopathy; J12.1 Respiratory syncytial virus pneumonia; I21.4 Non-ST elevation (NSTEMI) myocardial infarction; E87.20 Acidosis, unspecified; N18.4 Chronic kidney disease, stage 4 (severe); F01.54 Vascular dementia, unspecified severity, with anxiety; J44.0 Chronic obstructive pulmonary disease with (acute) lower respiratory infection; E66.01 Morbid (severe) obesity due to excess calories; E11.22 Type 2 diabetes mellitus with diabetic chronic kidney disease; I13.10 Hypertensive heart and chronic kidney disease without heart failure, with stage 1 through stage 4 chronic kidney disease, or unspecified chronic kidney disease; I65.21 Occlusion and stenosis of right carotid artery; F32.A Depression, unspecified; I73.9 Peripheral vascular disease, unspecified; F01.53 Vascular dementia, unspecified severity, with mood disturbance; J44.1 Chronic obstructive pulmonary disease with (acute) exacerbation; N39.0 Urinary tract infection, site not specified; N18.30 Chronic kidney disease, stage 3 unspecified; E11.40 Type 2 diabetes mellitus with diabetic neuropathy, unspecified; R65.20 Severe sepsis without septic shock; G93.89 Other specified disorders of brain; Z68.32 Body mass index [BMI] 32.0-32.9, adult; E78.5 Hyperlipidemia, unspecified; I25.10 Atherosclerotic heart disease of native coronary artery without angina pectoris; K21.9 Gastro-esophageal reflux disease without esophagitis; G89.29 Other chronic pain; R74.01 Elevation of levels of liver transaminase levels; I25.2 Old myocardial infarction; F17.200 Nicotine dependence, unspecified, uncomplicated; Z79.51 Long term (current) use of inhaled steroids; Z79.02 Long term (current) use of antithrombotics/antiplatelets; Z79.84 Long term (current) use of oral hypoglycemic drugs; Z79.899 Other long term (current) drug therapy; Z78.9 Other specified health status; Z95.5 Presence of coronary angioplasty implant and graft; Z88.5 Allergy status to narcotic agent; Z88.0 Allergy status to penicillin; Z88.8 Allergy status to other drugs, medicaments and biological substances
CPT/HCPCS: 36415; 70450; 70496; 70498; 71045; 71046; 80048; 80053; 80061; 80202; 81001; 82565; 83036; 83605; 83735; 83880; 84443; 84484; 85025; 85610; 85730; 87040; 87636; 93005; 93306; 93458; 93880; 94640; 94760; 96365; 96366; 96375; 99291